=== PATIENT | male | born 1940 | race Caucasian/White ===

== ENCOUNTER 2020-11-17 12:35 | Inpatient (IN) | payer MEDICARE, BC ==
[2020-11-17] MEDS ORDERED: Sodium Chloride 0.9% 2.5 ML Syringe FLUSH PRN (12:40)
[2020-11-17] MEDS ORDERED: Sodium Chloride 0.9% 10 ML Syringe FLUSH PRN (12:40)
--- NOTE | 2020-11-17 12:45 | EDM.PDOC ---
ED HPI GENERAL MEDICAL PROBLEM - General Stated Complaint: SHORTNESS OF BREATHE Time Seen by Provider: 11/17/20 12:45 Source of Information: Reports: Patient History Limitations: Reports: No Limitations - History of Present Illness INITIAL COMMENTS - FREE TEXT/NARRATIVE: HISTORY AND PHYSICAL: History of present illness: Patient is an 80-year-old male who presents to the emergency room with complaints of shortness of breath and low oxygen saturation. Earlier this week the patient was admitted to [facility] for " BOOP pneumonia". He was discharged to home on 11/14/2020 and states he felt "fine". His daughter states she checked his oxygen as he appeared short of breath and he was saturating at 76% on room air. They decided to come to the emergency room for evaluation. Patient reports a infrequent nonproductive cough. Patient denies any fever, chills, headache, change in vision, syncope or near syncope. Denies any chest pain, back pain, abdominal pain, nausea, vomiting, diarrhea, constipation or dysuria. Has not noted any blood in urine or stool. Patient has been eating and drinking appropriately. *History of pulmonary fibrosis Review of systems: As per history of present illness and below otherwise all systems reviewed and negative. Past medical history: As per history of present illness and as reviewed below otherwise noncontributory. Surgical history: As per history of present illness and as reviewed below otherwise noncontributory. Social history: See social history for further information Family history: As per history of present illness and as reviewed below otherwise noncontributory. Physical exam: General: Well developed and well nourished. Alert and orientated x 3. Nontoxic in appearance and in no acute distress. Vital signs are stable and have been reviewed by me. Nursing notes were reviewed. HEENT: Atraumatic, normocephalic, pupils equal and reactive bilaterally, negative for conjunctival pallor or scleral icterus, mucous membranes moist, th roat clear, neck supple, nontender, trachea midline. No drooling or trismus noted. No meningeal signs. No hot potato voice noted. Lungs: Slightly diminished to auscultation throughout, breath sounds equal bilaterally, chest nontender. Normal work of breathing, no accessory muscles used. Dry nonproductive cough noted. Heart: S1S2, regular rate and rhythm without overt murmur Abdomen: Soft, nondistended, nontender. Negative for masses or costovertebral tenderness. Skin: Intact, warm, dry. No lesions or rashes noted. Hematologic: No petechiae or purpra. Mucosa appropriate color and normal nail bed color and refill. Extremities: Atraumatic, moves all extremities per self without difficulty or deficits, negative for cords or calf pain. +1 pitting edema to bilateral LE (wears NADIR hose). Neurovascular unremarkable. Neuro: Awake, alert, oriented. Cranial nerves II through XII unremarkable. Cerebellum unremarkable. Motor and sensory unremarkable throughout. Exam nonfocal. Psychiatric: Mood and affect are appropriate. Normal thought process. Answering questions appropriately. Notes: Leukocytosis of 13.93. Patient's chest x-ray shows diffuse interstitial opacities throughout the lungs could be related to pulmonary edema, infectious inflammatory etiologies to include atypical infections.Patient's WELLs Criteria is Low and his age adjusted D.Dimer puts him at low risk for PE. Due to the appearance of his chest x-ray and the Negative COVID test, I will do the CT of his chest for further assessment. No pulmonary emboli. Diffuse ground-glass opacities which may reflect infectious or inflammatory process to include atypical infections. Moderate to severe emphysema with pulmonary fibrosis. I have talked with the patient about today's findings, in addition to providing specific details for plan of care. Patient continues to have an oxygen saturation of 92 to 94% on 4 L per nasal cannula. Will admit the patient for IV antibiotics. We have spoken both with the patient and the daughter/caregiver. Dr. Loo was consulted on this case and is agreeable. We will continue to monitor. Diagnostics: CBC, CMP, Troponin, EKG, CXR, D.Dimer, COVID/Influenza, BC x 2, Lactic w/Reflex Therapeutics: Vancomycin Impression: Atypical Pneumonia Plan: Inpatient admission to Med/Surg with telemetry Definitive disposition and diagnosis as appropriate pending reevaluation and review of above. - Related Data Allergies Allergy/AdvReac Type Severity Reaction Status Date / Time No Known Allergies Allergy Verified 11/17/20 12:56 Home Meds: Home Meds Cefdinir [Omnicef] 300 mg PO DAILY 11/17/20 [History] Folic Acid 1 mg PO ASDIRECTED 11/17/20 [History] Furosemide [Lasix] 40 mg PO DAILY 11/17/20 [History] Levothyroxine 150 mcg PO DAILY 11/17/20 [History] Methotrexate 2.5 mg PO ASDIRECTED 11/17/20 [History] Potassium Chloride [Klor-Con M20] 20 meq PO DAILY 11/17/20 [History] Warfarin [Coumadin] 4 mg PO ASDIRECTED 11/17/20 [History] Warfarin [Coumadin] 5 mg PO ASDIRECTED 11/17/20 [History] ED ROS GENERAL - Review of Systems Review Of Systems: Comprehensive ROS is negative, except as noted in HPI. ED EXAM, GENERAL - Physical Exam Exam: See Below (See dictation) Course - Vital Signs Last Recorded V/S: Last Vital Signs Temp 97.7 F 11/17/20 12:35 Pulse 69 11/17/20 15:09 Resp 16 11/17/20 15:09 BP 114/56 L 11/17/20 15:09 Pulse Ox 96 11/17/20 15:09 - Orders/Labs/Meds Orders: Active Orders 24 hr Category Date Time Status Cardiac Monitoring [RC] . DIRECTED Care 11/17/20 12:40 Active EKG Documentation Completion [RC] STAT Care 11/17/20 12:39 Active Oxygen Therapy, ED [RC] ASDIRECTED Care 11/17/20 12:40 Active B-TYPE NATRIURETIC PEPTIDE,BNP [CHEM] Stat Lab 11/17/20 12:52 Received CULTURE BLOOD [BC] Stat Lab 11/17/20 12:52 Received CULTURE BLOOD [BC] Stat Lab 11/17/20 12:52 Received Sodium Chloride 0.9% [Saline Flush] Med 11/17/20 12:40 Active 10 ml FLUSH ASDIRECTED PRN Sodium Chloride 0.9% [Saline Flush] Med 11/17/20 12:40 Active 2.5 ml FLUSH ASDIRECTED PRN Vancomycin 1 gm Med 11/17/20 15:42 Ordered Sodium Chloride 0.9% [Normal Saline (AdvBag)] 250 ml IV ONETIME Blood Culture x2 Reflex Set [OM.PC] Stat Oth 11/17/20 12:39 Ordered Saline Lock Insert [OM.PC] Stat Oth 11/17/20 12:40 Ordered Medication Orders Vancomycin HCl 1 gm/ Sodium (Chloride) 250 mls @ 166 mls/hr IV ONETIME ONE Stop: 11/17/20 17:12 Sodium Chloride (Saline Flush) 10 ml FLUSH ASDIRECTED PRN PRN Reason: Keep Vein Open Last Admin: 11/17/20 12:58 Dose: 10 ml Documented by: SHIRLEY Sodium Chloride (Saline Flush) 2.5 ml FLUSH ASDIRECTED PRN PRN Reason: Keep Vein Open Last Admin: 11/17/20 12:58 Dose: 2.5 ml Documented by: SHIRLEY Labs: Laboratory Tests 11/17/20 11/17/20 11/17/20 Range/Units 12:52 12:52 12:52 WBC 13.93 H (4.0-11.0) K/uL RBC 4.80 (4.50-5.90) M/uL Hgb 15.0 (13.0-17.0) g/dL Hct 46.8 (38.0-50.0) % MCV 97.5 (80.0-98.0) fL MCH 31.3 (27.0-32.0) pg MCHC 32.1 (31.0-37.0) g/dL RDW Std Deviation 52.1 (28.0-62.0) fl RDW Coeff of Sunny 15 (11.0-15.0) % Plt Count 224 (150-400) K/uL MPV 10.90 (7.40-12.00) fL Add Manual Diff YES Neutrophils % (Manual) 70 (48.0-80.0) % Lymphocytes % (Manual) 8 L (16.0-40.0) % Monocytes % (Manual) 19 H (0.0-15.0) % Eosinophils % (Manual) 1 (0.0-7.0) % Basophils % (Manual) 1 (0.0-1.5) % Nucleated RBC % 0.0 /100WBC Absolute Seg Neuts 9.8 H (1.4-5.7) Lymphocytes # (Manual) 1.1 (0.6-2.4) Monocytes # (Manual) 2.6 H (0.0-0.8) Eosinophils # (Manual) 0.1 (0.0-0.7) Basophils # (Manual) 0.1 (0.0-0.1) Absolute Myelocytes 1 Nucleated RBCs # 0 K/uL INR D-Dimer, Quantitative 0.58 H (0.0-0.50) mg/L FEU Lactate (0.20-2.00) mmol/L Sodium 135 L (136-148) mmol/L Potassium 4.3 (3.5-5.1) mmol/L Chloride 102 (98-107) mmol/L Carbon Dioxide 27.2 (21.0-32.0) mmol/L BUN 24 H (7.0-18.0) mg/dL Creatinine 1.3 (0.8-1.3) mg/dL Est Cr Clr Drug Dosing 55.64 mL/min Estimated GFR (MDRD) 53.1 ml/min Glucose 124 H (74-106) mg/dL Calcium 8.5 (8.5-10.1) mg/dL Total Bilirubin 1.1 H (0.2-1.0) mg/dL AST 29 (15-37) IU/L ALT 45 (14-63) IU/L Alkaline Phosphatase 76 (46-116) U/L Troponin I < 0.050 (0.000-0.056) ng/mL Total Protein 6.0 L (6.4-8.2) g/dL Albumin 2.9 L (3.4-5.0) g/dL Globulin 3.1 (2.6-4.0) g/dL Albumin/Globulin Ratio 0.9 (0.9-1.6) Influenza Type A RNA (NEGATIVE) Influenza Type B RNA (NEGATIVE) SARS-CoV-2 RNA (MELIDA) (NEGATIVE) 11/17/20 11/17/20 11/17/20 Range/Units 12:52 12:52 13:20 WBC (4.0-11.0) K/uL RBC (4.50-5.90) M/uL Hgb (13.0-17.0) g/dL Hct (38.0-50.0) % MCV (80.0-98.0) fL MCH (27.0-32.0) pg MCHC (31.0-37.0) g/dL RDW Std Deviation (28.0-62.0) fl RDW Coeff of Sunny (11.0-15.0) % Plt Count (150-400) K/uL MPV (7.40-12.00) fL Add Manual Diff Neutrophils % (Manual) (48.0-80.0) % Lymphocytes % (Manual) (16.0-40.0) % Monocytes % (Manual) (0.0-15.0) % Eosinophils % (Manual) (0.0-7.0) % Basophils % (Manual) (0.0-1.5) % Nucleated RBC % /100WBC Absolute Seg Neuts (1.4-5.7) Lymphocytes # (Manual) (0.6-2.4) Monocytes # (Manual) (0.0-0.8) Eosinophils # (Manual) (0.0-0.7) Basophils # (Manual) (0.0-0.1) Absolute Myelocytes Nucleated RBCs # K/uL INR 1.69 D-Dimer, Quantitative (0.0-0.50) mg/L FEU Lactate 1.7 (0.20-2.00) mmol/L Sodium (136-148) mmol/L Potassium (3.5-5.1) mmol/L Chloride (98-107) mmol/L Carbon Dioxide (21.0-32.0) mmol/L BUN (7.0-18.0) mg/dL Creatinine (0.8-1.3) mg/dL Est Cr Clr Drug Dosing mL/min Estimated GFR (MDRD) ml/min Glucose (74-106) mg/dL Calcium (8.5-10.1) mg/dL Total Bilirubin (0.2-1.0) mg/dL AST (15-37) IU/L ALT (14-63) IU/L Alkaline Phosphatase (46-116) U/L Troponin I (0.000-0.056) ng/mL Total Protein (6.4-8.2) g/dL Albumin (3.4-5.0) g/dL Globulin (2.6-4.0) g/dL Albumin/Globulin Ratio (0.9-1.6) Influenza Type A RNA NEGATIVE (NEGATIVE) Influenza Type B RNA NEGATIVE (NEGATIVE) SARS-CoV-2 RNA (MELIDA) NEGATIVE (NEGATIVE) Meds: Medications Generic Name Dose Route Start Last Admin Trade Name Freq PRN Reason Stop Dose Admin Vancomycin HCl 1 gm/ Sodium 250 mls @ 166 mls/hr 11/17/20 15:42 Chloride IV 11/17/20 17:12 ONETIME ONE Sodium Chloride 10 ml 11/17/20 12:40 11/17/20 12:58 Saline Flush FLUSH 10 ml ASDIRECTED PRN Administration Keep Vein Open Sodium Chloride 2.5 ml 11/17/20 12:40 11/17/20 12:58 Saline Flush FLUSH 2.5 ml ASDIRECTED PRN Administration Keep Vein Open Discontinued Medications Generic Name Dose Route Start Last Admin Trade Name Freq PRN Reason Stop Dose Admin Iopamidol 100 ml 11/17/20 14:49 11/17/20 14:52 Isovue Multipack-370 (76%) IVPUSH 11/17/20 14:50 100 ml ONETIME ONE Administration Departure - Departure Time of Disposition: 15:45 Disposition: Admitted As Inpatient 66 Clinical Impression: Atypical pneumonia - Discharge Information Referrals: PCP,Not In Area [Primary Care Provider] - Sepsis Event Note (ED) - Focused Exam Vital Signs: Vital Signs Temp Pulse Resp BP Pulse Ox Pulse Ox 11/17/20 15:09 69 16 114/56 L 96 11/17/20 14:28 70 16 111/50 L 94 L 11/17/20 13:47 70 18 120/61 92 L 11/17/20 12:40 95 11/17/20 12:35 97.7 F 84 20 114/50 L 81 L - My Orders Last 24 Hours: My Active Orders 11/17/20 12:39 EKG Documentation Completion [RC] STAT Blood Culture x2 Reflex Set [OM.PC] Stat 11/17/20 12:40 Cardiac Monitoring [RC] . DIRECTED Oxygen Therapy, ED [RC] ASDIRECTED Sodium Chloride 0.9% [Saline Flush] 10 ml FLUSH ASDIRECTED PRN Sodium Chloride 0.9% [Saline Flush] 2.5 ml FLUSH ASDIRECTED PRN Saline Lock Insert [OM.PC] Stat 11/17/20 12:52 B-TYPE NATRIURETIC PEPTIDE,BNP [CHEM] Stat CULTURE BLOOD [BC] Stat CULTURE BLOOD [BC] Stat 11/17/20 15:42 Vancomycin 1 gm Sodium Chloride 0.9% [Normal Saline (AdvBag)] 250 ml IV ONETIME - Assessment/Plan Last 24 Hours: My Active Orders 11/17/20 12:39 EKG Documentation Completion [RC] STAT Blood Culture x2 Reflex Set [OM.PC] Stat 11/17/20 12:40 Cardiac Monitoring [RC] . DIRECTED Oxygen Therapy, ED [RC] ASDIRECTED Sodium Chloride 0.9% [Saline Flush] 10 ml FLUSH ASDIRECTED PRN Sodium Chloride 0.9% [Saline Flush] 2.5 ml FLUSH ASDIRECTED PRN Saline Lock Insert [OM.PC] Stat 11/17/20 12:52 B-TYPE NATRIURETIC PEPTIDE,BNP [CHEM] Stat CULTURE BLOOD [BC] Stat CULTURE BLOOD [BC] Stat 11/17/20 15:42 Vancomycin 1 gm Sodium Chloride 0.9% [Normal Saline (AdvBag)] 250 ml IV ONETIME
[2020-11-17 13:22] LABS: BLOOD UREA NITROGEN,BUN 24 mg/dL (7.0-18.0); CARBON DIOXIDE,CO2 27.2 mmol/L (21.0-32.0); CHLORIDE,CL 102 mmol/L (98-107); GLUCOSE RANDOM 124 mg/dL (74-106); POTASSIUM,K 4.3 mmol/L (3.5-5.1); SODIUM,NA 135 mmol/L (136-148)
--- NOTE | 2020-11-17 13:54 | CR ---
INDICATION: Dyspnea TECHNIQUE: Single view chest. Comparison: No comparison FINDINGS: Prominent cardiac silhouette. Diffuse interstitial opacities throughout both lungs. Apical pleural parenchymal thickening. No large effusion or pneumothorax. Impression: 1. Diffuse interstitial opacities throughout the lungs could be related to pulmonary edema, infectious inflammatory etiologies to include atypical infections. Dictated by Sammie Alas MD @ Nov 17 2020 1:50PM Signed by Dr. Sammie Alas @ Nov 17 2020 1:52PM
[2020-11-17 14:15] LABS: CORONAVIRUS COVID-19 NAA NEGATIVE (NEGATIVE); INFLUENZA A NAA NEGATIVE (NEGATIVE); INFLUENZA B NAA NEGATIVE (NEGATIVE)
[2020-11-17] MEDS ORDERED: Iopamidol 755 MG/ML 500 ML Multipack Bottle IVPUSH ONE (14:49)
--- NOTE | 2020-11-17 15:19 | CT ---
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 Adequate opacification of the pulmonary arteries. No filling defects in the pulmonary arteries. No pulmonary emboli. Heart size is normal. No mediastinal or hilar adenopathy. No pericardial effusion. Moderate to severe emphysema. Pulmonary fibrosis with honeycombing. No effusion. Apical pleural parenchymal fibrotic change. Diffuse bilateral ground-glass opacities. No suspicious bony lesions. Impression: 1. No pulmonary emboli. 2. Diffuse ground-glass opacities which may reflect infectious or inflammatory process to include atypical infections. 3. Moderate to severe emphysema with pulmonary fibrosis. Please note that all CT scans at this facility use dose modulation, iterative reconstruction, and/or weight-based dosing when appropriate to reduce radiation dose to as low as reasonably achievable. Dictated by Sammie Alas MD @ Nov 17 2020 3:09PM Signed by Dr. Sammie Alas @ Nov 17 2020 3:17PM
[2020-11-17] MEDS ORDERED: Acetaminophen 325 MG Tab PO PRN (17:09)
[2020-11-17] MEDS ORDERED: Albuterol/Ipratropium 3.0-0.5 MG/3 ML Neb Soln NEB PRN (17:09)
[2020-11-17] MEDS ORDERED: Furosemide 40 MG/4 ML VIAL IVPUSH ONE (17:20)
[2020-11-17] MEDS ORDERED: guaiFENesin/Dextromethorphan 100-10 MG/5 ML Soln 10 ML Cup PO PRN (17:21)
[2020-11-17] MEDS ORDERED: Albuterol/Ipratropium 4 GM Inhalation Spray INH PRN (17:21)
[2020-11-17] MEDS ORDERED: cefTRIAXone 1 GM in Sodium Chloride 0.9% 50 ML IV SCH (17:30)
[2020-11-17] MEDS ORDERED: Folic Acid 1 MG Tab PO SCH (17:30)
[2020-11-17] MEDS ORDERED: Azithromycin 500 MG in Sodium Chloride 0.9% 250 ML IV SCH (17:30)
--- NOTE | 2020-11-17 17:54 | PCM.HP.2 ---
<Yennifer Teresa - Last Filed: 11/17/20 18:19> H&P History of Present Illness - General Date of Service: 11/17/20 Admit Problem/Dx: Admission Diagnosis/Problem Admission Diagnosis/Problem Pneumonia Source of Information: Patient - History of Present Illness Initial Comments - Free Text/Narative: Patient is a 80-year-old gentleman from [place]. Was previously admitted at the [facility] for BOOP pneumonia. Was discharged on November 14, 2020 with cefdinir. Patient states he was visiting his daughter here in [place] who noted that her father's O2 saturations were in the 70s, upon admission to the ED today he was satting 84 to 86% on room air. Therefore placed on 4 L nasal cannula correcting his saturations to 90 to 94%. Patient states that last night he felt feverish, has had some intermittent nonproductive cough. 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 We will be admitting for treating possible HCAP versus mycoplasma pneumonia with oxygen and antibiotics and cardiac monitoring on telemetry. - Related Data Allergies/Adverse Reactions: Allergies Allergy/AdvReac Type Severity Reaction Status Date / Time No Known Allergies Allergy Verified 11/17/20 18:23 Home Medications: Home Meds Cefdinir [Omnicef] 300 mg PO BID 11/17/20 [History] Folic Acid 1 mg PO DAILY 11/17/20 [History] Furosemide [Lasix] 40 mg PO DAILY 11/17/20 [History] Levothyroxine 150 mcg PO DAILY 11/17/20 [History] Methotrexate 5 tab PO WEEKLY 11/17/20 [History] Potassium Chloride [Klor-Con M20] 20 meq PO DAILY 11/17/20 [History] Warfarin [Coumadin] 4 mg PO SUMOTUWETHSA 11/17/20 [History] Warfarin [Coumadin] 5 mg PO FR 11/17/20 [History] Past Medical History - Past Health History Medical/Surgical History: Denies Medical/Surgical History HEENT History: Reports: None Cardiovascular History: Reports: None Respiratory History: Reports: None Gastrointestinal History: Reports: None Genitourinary History: Reports: None Musculoskeletal History: Reports: Arthritis Neurological History: Reports: None Psychiatric History: Reports: None Endocrine/Metabolic History: Reports: None Hematologic History: Reports: Other (See Below) Other Hematologic History: Blood clots? Immunologic History: Reports: None Oncologic (Cancer) History: Reports: None Dermatologic History: Reports: None - Infectious Disease History Infectious Disease History: Reports: None - Past Surgical History Head Surgeries/Procedures: Reports: None Social & Family History - Family History Family Medical History: No Pertinent Family History - Tobacco Use Tobacco Use Status *Q: Former Tobacco User Used Tobacco, but Quit: Yes Month/Year Tobacco Last Used: 1989 - Caffeine Use Caffeine Use: Reports: Coffee - Recreational Drug Use Recreational Drug Use: No H&P Review of Systems - Review of Systems: Review Of Systems: Comprehensive ROS is negative, except as noted in HPI. General: Reports: No Symptoms HEENT: Reports: No Symptoms Pulmonary: Reports: Shortness of Breath Cardiovascular: Reports: No Symptoms Gastrointestinal: Reports: No Symptoms Genitourinary: Reports: No Symptoms Musculoskeletal: Reports: No Symptoms Skin: Reports: Change in Color (Venous stasis dermatitis bilaterally, chronic) Psychiatric: Reports: No Symptoms Neurological: Reports: No Symptoms Hematologic/Lymphatic: Reports: No Symptoms Immunologic: Reports: No Symptoms Exam - Exam Exam: See Below - Vital Signs Vital Signs: Last Vital Signs Temp 97.7 F 11/17/20 12:35 Pulse 72 11/17/20 16:10 Resp 18 11/17/20 16:10 BP 119/51 L 11/17/20 16:10 Pulse Ox 96 11/17/20 16:10 Weight: 119.023 kg - Exam Quality Assessment: Supplemental Oxygen, DVT Prophylaxis General: Alert, Oriented, Cooperative HEENT: Conjunctiva Clear, EACs Clear, EOMI, Hearing Intact, Mucosa Moist & [place], Nares Patent, Normal Nasal Septum, PERRLA Neck: Supple, Trachea Midline Lungs: Crackles, Rhonchi Cardiovascular: Regular Rate, Regular Rhythm GI/Abdominal Exam: Normal Bowel Sounds, Soft, Non-Tender, No Organomegaly, No Distention, No Abnormal Bruit, No Mass Back Exam: Normal Inspection, Full Range of Motion Extremities: Normal Inspection, Normal Range of Motion, Non-Tender, No Pedal Edema, Normal Capillary Refill Peripheral Pulses: 2+: Radial (L), Radial (R), Dorsalis Pedis (L), Dorsalis Pedis (R) Skin: Warm, Dry, Intact Neurological: Cranial Nerves Intact, Reflexes Equal Bilateral Neuro Extensive - Mental Status: Alert, Oriented x3, Normal Mood/Affect Neuro Extensive - Motor, Sensory, Reflexes: CN II-XII Intact, Normal Gait, Normal Reflexes Psychiatric: Alert, Normal Affect, Normal Mood - Patient Data Lab Results Last 24 hrs: Laboratory Results - last 24 hr 11/17/20 11/17/20 11/17/20 Range/Units 12:52 12:52 12:52 WBC 13.93 H (4.0-11.0) K/uL RBC 4.80 (4.50-5.90) M/uL Hgb 15.0 (13.0-17.0) g/dL Hct 46.8 (38.0-50.0) % MCV 97.5 (80.0-98.0) fL MCH 31.3 (27.0-32.0) pg MCHC 32.1 (31.0-37.0) g/dL RDW Std Deviation 52.1 (28.0-62.0) fl RDW Coeff of Sunny 15 (11.0-15.0) % Plt Count 224 (150-400) K/uL MPV 10.90 (7.40-12.00) fL Add Manual Diff YES Neutrophils % (Manual) 70 (48.0-80.0) % Lymphocytes % (Manual) 8 L (16.0-40.0) % Monocytes % (Manual) 19 H (0.0-15.0) % Eosinophils % (Manual) 1 (0.0-7.0) % Basophils % (Manual) 1 (0.0-1.5) % Nucleated RBC % 0.0 /100WBC Absolute Seg Neuts 9.8 H (1.4-5.7) Lymphocytes # (Manual) 1.1 (0.6-2.4) Monocytes # (Manual) 2.6 H (0.0-0.8) Eosinophils # (Manual) 0.1 (0.0-0.7) Basophils # (Manual) 0.1 (0.0-0.1) Absolute Myelocytes 1 Nucleated RBCs # 0 K/uL INR D-Dimer, Quantitative 0.58 H (0.0-0.50) mg/L FEU Lactate (0.20-2.00) mmol/L Sodium 135 L (136-148) mmol/L Potassium 4.3 (3.5-5.1) mmol/L Chloride 102 (98-107) mmol/L Carbon Dioxide 27.2 (21.0-32.0) mmol/L BUN 24 H (7.0-18.0) mg/dL Creatinine 1.3 (0.8-1.3) mg/dL Est Cr Clr Drug Dosing 55.64 mL/min Estimated GFR (MDRD) 53.1 ml/min Glucose 124 H (74-106) mg/dL Calcium 8.5 (8.5-10.1) mg/dL Total Bilirubin 1.1 H (0.2-1.0) mg/dL AST 29 (15-37) IU/L ALT 45 (14-63) IU/L Alkaline Phosphatase 76 (46-116) U/L Troponin I < 0.050 (0.000-0.056) ng/mL Total Protein 6.0 L (6.4-8.2) g/dL Albumin 2.9 L (3.4-5.0) g/dL Globulin 3.1 (2.6-4.0) g/dL Albumin/Globulin Ratio 0.9 (0.9-1.6) Urine Color Urine Appearance Urine pH (5.0-8.0) Ur Specific [place] (1.001-1.035) Urine Protein (NEGATIVE) mg/dL Urine Glucose (UA) (NEGATIVE) mg/dL Urine Ketones (NEGATIVE) mg/dL Urine Occult Blood (NEGATIVE) Urine Nitrite (NEGATIVE) Urine Bilirubin (NEGATIVE) Urine Urobilinogen (<2.0) EU/dL Ur Leukocyte Esterase (NEGATIVE) Urine RBC (0-2/HPF) Urine WBC (0-5/HPF) Ur Epithelial Cells (NONE-FEW) Urine Bacteria (NEGATIVE) Influenza Type A RNA (NEGATIVE) Influenza Type B RNA (NEGATIVE) SARS-CoV-2 RNA (MELIDA) (NEGATIVE) 11/17/20 11/17/20 11/17/20 Range/Units 12:52 12:52 13:20 WBC (4.0-11.0) K/uL RBC (4.50-5.90) M/uL Hgb (13.0-17.0) g/dL Hct (38.0-50.0) % MCV (80.0-98.0) fL MCH (27.0-32.0) pg MCHC (31.0-37.0) g/dL RDW Std Deviation (28.0-62.0) fl RDW Coeff of Sunny (11.0-15.0) % Plt Count (150-400) K/uL MPV (7.40-12.00) fL Add Manual Diff Neutrophils % (Manual) (48.0-80.0) % Lymphocytes % (Manual) (16.0-40.0) % Monocytes % (Manual) (0.0-15.0) % Eosinophils % (Manual) (0.0-7.0) % Basophils % (Manual) (0.0-1.5) % Nucleated RBC % /100WBC Absolute Seg Neuts (1.4-5.7) Lymphocytes # (Manual) (0.6-2.4) Monocytes # (Manual) (0.0-0.8) Eosinophils # (Manual) (0.0-0.7) Basophils # (Manual) (0.0-0.1) Absolute Myelocytes Nucleated RBCs # K/uL INR 1.69 D-Dimer, Quantitative (0.0-0.50) mg/L FEU Lactate 1.7 (0.20-2.00) mmol/L Sodium (136-148) mmol/L Potassium (3.5-5.1) mmol/L Chloride (98-107) mmol/L Carbon Dioxide (21.0-32.0) mmol/L BUN (7.0-18.0) mg/dL Creatinine (0.8-1.3) mg/dL Est Cr Clr Drug Dosing mL/min Estimated GFR (MDRD) ml/min Glucose (74-106) mg/dL Calcium (8.5-10.1) mg/dL Total Bilirubin (0.2-1.0) mg/dL AST (15-37) IU/L ALT (14-63) IU/L Alkaline Phosphatase (46-116) U/L Troponin I (0.000-0.056) ng/mL Total Protein (6.4-8.2) g/dL Albumin (3.4-5.0) g/dL Globulin (2.6-4.0) g/dL Albumin/Globulin Ratio (0.9-1.6) Urine Color Urine Appearance Urine pH (5.0-8.0) Ur Specific [place] (1.001-1.035) Urine Protein (NEGATIVE) mg/dL Urine Glucose (UA) (NEGATIVE) mg/dL Urine Ketones (NEGATIVE) mg/dL Urine Occult Blood (NEGATIVE) Urine Nitrite (NEGATIVE) Urine Bilirubin (NEGATIVE) Urine Urobilinogen (<2.0) EU/dL Ur Leukocyte Esterase (NEGATIVE) Urine RBC (0-2/HPF) Urine WBC (0-5/HPF) Ur Epithelial Cells (NONE-FEW) Urine Bacteria (NEGATIVE) Influenza Type A RNA NEGATIVE (NEGATIVE) Influenza Type B RNA NEGATIVE (NEGATIVE) SARS-CoV-2 RNA (MELIDA) NEGATIVE (NEGATIVE) 11/17/20 Range/Units 15:55 WBC (4.0-11.0) K/uL RBC (4.50-5.90) M/uL Hgb (13.0-17.0) g/dL Hct (38.0-50.0) % MCV (80.0-98.0) fL MCH (27.0-32.0) pg MCHC (31.0-37.0) g/dL RDW Std Deviation (28.0-62.0) fl RDW Coeff of Sunny (11.0-15.0) % Plt Count (150-400) K/uL MPV (7.40-12.00) fL Add Manual Diff Neutrophils % (Manual) (48.0-80.0) % Lymphocytes % (Manual) (16.0-40.0) % Monocytes % (Manual) (0.0-15.0) % Eosinophils % (Manual) (0.0-7.0) % Basophils % (Manual) (0.0-1.5) % Nucleated RBC % /100WBC Absolute Seg Neuts (1.4-5.7) Lymphocytes # (Manual) (0.6-2.4) Monocytes # (Manual) (0.0-0.8) Eosinophils # (Manual) (0.0-0.7) Basophils # (Manual) (0.0-0.1) Absolute Myelocytes Nucleated RBCs # K/uL INR D-Dimer, Quantitative (0.0-0.50) mg/L FEU Lactate (0.20-2.00) mmol/L Sodium (136-148) mmol/L Potassium (3.5-5.1) mmol/L Chloride (98-107) mmol/L Carbon Dioxide (21.0-32.0) mmol/L BUN (7.0-18.0) mg/dL Creatinine (0.8-1.3) mg/dL Est Cr Clr Drug Dosing mL/min Estimated GFR (MDRD) ml/min Glucose (74-106) mg/dL Calcium (8.5-10.1) mg/dL Total Bilirubin (0.2-1.0) mg/dL AST (15-37) IU/L ALT (14-63) IU/L Alkaline Phosphatase (46-116) U/L Troponin I (0.000-0.056) ng/mL Total Protein (6.4-8.2) g/dL Albumin (3.4-5.0) g/dL Globulin (2.6-4.0) g/dL Albumin/Globulin Ratio (0.9-1.6) Urine Color YELLOW Urine Appearance CLEAR Urine pH 7.5 (5.0-8.0) Ur Specific [place] 1.010 (1.001-1.035) Urine Protein TRACE H (NEGATIVE) mg/dL Urine Glucose (UA) NEGATIVE (NEGATIVE) mg/dL Urine Ketones NEGATIVE (NEGATIVE) mg/dL Urine Occult Blood TRACE-INTACT H (NEGATIVE) Urine Nitrite NEGATIVE (NEGATIVE) Urine Bilirubin NEGATIVE (NEGATIVE) Urine Urobilinogen 1.0 (<2.0) EU/dL Ur Leukocyte Esterase NEGATIVE (NEGATIVE) Urine RBC 0-2 (0-2/HPF) Urine WBC 0-2 (0-5/HPF) Ur Epithelial Cells FEW (NONE-FEW) Urine Bacteria RARE (NEGATIVE) Influenza Type A RNA (NEGATIVE) Influenza Type B RNA (NEGATIVE) SARS-CoV-2 RNA (MELIDA) (NEGATIVE) Result Diagrams: 11/17/20 12:52 11/17/20 12:52 Sepsis Event Note - Evaluation Sepsis Screening Result: No Definite Risk - Focused Exam Vital Signs: Vital Signs Temp Pulse Resp BP Pulse Ox Pulse Ox 11/17/20 16:10 72 18 119/51 L 96 11/17/20 15:09 69 16 114/56 L 96 11/17/20 14:28 70 16 111/50 L 94 L 11/17/20 13:47 70 18 120/61 92 L 11/17/20 12:40 95 11/17/20 12:35 97.7 F 84 20 114/50 L 81 L Problem List Initiated/Reviewed/Updated: Yes Orders Last 24hrs: Active Orders 24 hr Category Date Time Status Admission Status [Patient Status] [ADT] Stat ADT 11/17/20 15:47 Active Ambulate [RC] ASDIRECTED Care 11/17/20 17:09 Active Antiembolic Devices [RC] PER UNIT ROUTINE Care 11/17/20 17:10 Active Cardiac Monitoring [RC] . DIRECTED Care 11/17/20 12:40 Active IS (RT) [RT Incentive Spirometry] [RC] Q2HWA Care 11/17/20 17:27 Active Oxygen Therapy [RC] PRN Care 11/17/20 17:09 Active RT Aerosol Therapy [RC] ASDIRECTED Care 11/17/20 17:10 Active RT Post Treatment Assessment [RC] Click to Edit Care 11/17/20 17:21 Active RT Pre-Treatment Assessment [RC] Click to Edit Care 11/17/20 17:21 Active Telemetry Monitoring [Cardiac Monitoring] [RC] Q8H Care 11/17/20 15:59 Active VTE/DVT Education [RC] PER UNIT ROUTINE Care 11/17/20 17:09 Active Vital Signs [RC] Q4H Care 11/17/20 17:09 Active Heart Healthy Diet [DIET] Diet 11/17/20 Dinner Active B-TYPE NATRIURETIC PEPTIDE,BNP [CHEM] Stat Lab 11/17/20 12:52 Received CULTURE BLOOD [BC] Stat Lab 11/17/20 12:52 Received CULTURE BLOOD [BC] Stat Lab 11/17/20 12:52 Received INR,PT,PROTHROMBIN TIME [COAG] AM Lab 11/18/20 05:11 Ordered INR,PT,PROTHROMBIN TIME [COAG] AM Lab 11/19/20 05:11 Ordered INR,PT,PROTHROMBIN TIME [COAG] AM Lab 11/20/20 05:11 Ordered INR,PT,PROTHROMBIN TIME [COAG] AM Lab 11/21/20 05:11 Ordered Acetaminophen [TylenoL] Med 11/17/20 17:09 Active 650 mg PO Q4H PRN Albuterol/Ipratropium [Combivent Respimat] Med 11/17/20 17:21 Active See Dose Instructions INH Q4H PRN Albuterol/Ipratropium [DuoNeb 3.0-0.5 MG/3 ML] Med 11/17/20 17:09 Active 3 ml NEB Q4HRRT PRN Azithromycin [Zithromax] 500 mg Med 11/17/20 17:30 Active Sodium Chloride 0.9% [Normal Saline (AdvBag)] 250 ml IV DAILY Dextromethorphan/guaiFENesin [Robitussin DM] Med 11/17/20 17:21 Active 10 ml PO Q4H PRN Enoxaparin [Lovenox] Med 11/17/20 21:00 Active 40 mg SUBCUT Q12HR Folic Acid Med 11/17/20 17:30 Pending 1 mg PO ASDIRECTED Furosemide [Lasix] Med 11/18/20 09:00 Active 40 mg PO DAILY Levothyroxine Med 11/18/20 07:30 Active 150 mcg PO ACBRK Potassium Chloride [Klor-Con M20] Med 11/18/20 09:00 Active 20 meq PO DAILY Sodium Chloride 0.9% [Saline Flush] Med 11/17/20 12:40 Active 10 ml FLUSH ASDIRECTED PRN Sodium Chloride 0.9% [Saline Flush] Med 11/17/20 12:40 Active 2.5 ml FLUSH ASDIRECTED PRN Warfarin [Coumadin] Med 11/17/20 17:30 Pending 5 mg PO ASDIRECTED cefTRIAXone [Rocephin in Dextrose,Iso-Osm 1 GM/50 ML] 1 Med 11/17/20 17:30 Active gm Premix Bag 1 bag IV Q24H Blood Culture x2 Reflex Set [OM.PC] Stat Ot 11/17/20 12:39 Ordered Saline Lock Insert [OM.PC] Stat Oth 11/17/20 12:40 Ordered Sequential Compression Device [OM.PC] Per Unit Routine Oth 11/17/20 17:09 Ordered Resuscitation Status Routine Resus Stat 11/17/20 17:09 Ordered Medication Orders Acetaminophen (Tylenol) 650 mg PO Q4H PRN PRN Reason: Pain (Mild 1-3)/fever Albuterol/Ipratropium (Duoneb 3.0-0.5 Mg/3 Ml) 3 ml NEB Q4HRRT PRN PRN Reason: Shortness Of Breath/wheezing Albuterol/Ipratropium (Combivent Respimat) 0 gm INH Q4H PRN PRN Reason: Dyspnea Enoxaparin Sodium (Lovenox) 40 mg SUBCUT Q12HR SUJATHA Folic Acid (Folic Acid) 1 mg PO ASDIRECTED SUJATHA Furosemide (Lasix) 40 mg PO DAILY SUJATHA Guaifenesin/Dextromethorphan (Robitussin Dm) 10 ml PO Q4H PRN PRN Reason: Cough Azithromycin 500 mg/ Sodium (Chloride) 250 mls @ 250 mls/hr IV DAILY SUJATHA Ceftriaxone Sodium/Dextrose 1 (gm/ Premix) 50 mls @ 100 mls/hr IV Q24H SUJATHA Levothyroxine Sodium (Levothyroxine) 150 mcg PO ACBRK SUJATHA Potassium Chloride (Klor-Con M20) 20 meq PO DAILY SUJATHA Sodium Chloride (Saline Flush) 10 ml FLUSH ASDIRECTED PRN PRN Reason: Keep Vein Open Last Admin: 11/17/20 12:58 Dose: 10 ml Documented by: MURDNIC Sodium Chloride (Saline Flush) 2.5 ml FLUSH ASDIRECTED PRN PRN Reason: Keep Vein Open Last Admin: 11/17/20 12:58 Dose: 2.5 ml Documented by: MURDNIC Warfarin Sodium (Coumadin) 5 mg PO ASDIRECTED SUJATHA Assessment/Plan Comment:: Patient is an 80-year-old gentleman admitted for HCAP versus mycoplasma pneumonia. 1.HCAP versus mycoplasma pneumonia: Covid negative, will repeat chest tomorrow Afebrile Leukocytosis 13.9, will trend with morning CBC Provide supplemental oxygen per oxygen requirements, currently on 4 to 5 L, goal of 90 to 92% Tylenol for fever Started on Vanco, Zosyn, azithromycin Blood cultures pending, will help narrow antibiotics DuoNebs every 4 hours 2. Has medical history of recurrent DVTs: Subtherapeutic INR 1.7, goal of 2-3, patient has not used his home dose of medications today, will ask pharmacy to dose Coumadin accordingly. Therefore also started on Lovenox 40 twice daily 3. Past medical history of hypothyroidism, fluid retention therefore on Lasix, patient unsure if he has a history of CHF, will resume all home medications <True Geiger - Last Filed: 11/26/20 18:05> H&P History of Present Illness - General Admit Problem/Dx: Admission Diagnosis/Problem Admission Diagnosis/Problem Pneumonia Exam - Vital Signs Vital Signs: Last Vital Signs Temp 36.9 C 11/26/20 16:00 Pulse 82 11/26/20 16:00 Resp 16 11/26/20 16:00 BP 145/67 H 11/26/20 16:00 Pulse Ox 95 11/26/20 16:00 - Patient Data Lab Results Last 24 hrs: Laboratory Results - last 24 hr 11/26/20 11/26/20 11/26/20 Range/Units 05:27 05:27 05:27 WBC 13.33 H (4.0-11.0) K/uL RBC 4.52 (4.50-5.90) M/uL Hgb 13.9 (13.0-17.0) g/dL Hct 43.2 (38.0-50.0) % MCV 95.6 (80.0-98.0) fL MCH 30.8 (27.0-32.0) pg MCHC 32.2 (31.0-37.0) g/dL RDW Std Deviation 51.1 (28.0-62.0) fl RDW Coeff of Sunny 15 (11.0-15.0) % Plt Count 203 (150-400) K/uL MPV 11.80 (7.40-12.00) fL Neut % (Auto) 76.0 (48.0-80.0) % Lymph % (Auto) 16.8 (16.0-40.0) % [place] % (Auto) 6.8 (0.0-15.0) % Eos % (Auto) 0.2 (0.0-7.0) % Baso % (Auto) 0.2 (0.0-1.5) % Neut # (Auto) 10.1 H (1.4-5.7) K/uL Lymph # (Auto) 2.2 (0.6-2.4) K/uL [place] # (Auto) 0.9 H (0.0-0.8) K/uL Eos # (Auto) 0.0 (0.0-0.7) K/uL Baso # (Auto) 0.0 (0.0-0.1) K/uL Nucleated RBC % 0.0 /100WBC Nucleated RBCs # 0 K/uL INR 2.60 Sodium 138 (136-148) mmol/L Potassium 4.5 (3.5-5.1) mmol/L Chloride 102 (98-107) mmol/L Carbon Dioxide 31.3 (21.0-32.0) mmol/L BUN 31 H (7.0-18.0) mg/dL Creatinine 0.9 (0.8-1.3) mg/dL Est Cr Clr Drug Dosing 78.24 mL/min Estimated GFR (MDRD) > 60.0 ml/min Glucose 131 H (74-106) mg/dL POC Glucose (60-110) mg/dL Calcium 8.1 L (8.5-10.1) mg/dL Total Bilirubin 0.7 (0.2-1.0) mg/dL AST 30 (15-37) IU/L ALT 133 H (14-63) IU/L Alkaline Phosphatase 64 (46-116) U/L Total Protein 4.9 L (6.4-8.2) g/dL Albumin 2.5 L (3.4-5.0) g/dL Globulin 2.4 L (2.6-4.0) g/dL Albumin/Globulin Ratio 1.0 (0.9-1.6) 11/26/20 11/26/20 Range/Units 08:03 12:44 WBC (4.0-11.0) K/uL RBC (4.50-5.90) M/uL Hgb (13.0-17.0) g/dL Hct (38.0-50.0) % MCV (80.0-98.0) fL MCH (27.0-32.0) pg MCHC (31.0-37.0) g/dL RDW Std Deviation (28.0-62.0) fl RDW Coeff of Sunny (11.0-15.0) % Plt Count (150-400) K/uL MPV (7.40-12.00) fL Neut % (Auto) (48.0-80.0) % Lymph % (Auto) (16.0-40.0) % [place] % (Auto) (0.0-15.0) % Eos % (Auto) (0.0-7.0) % Baso % (Auto) (0.0-1.5) % Neut # (Auto) (1.4-5.7) K/uL Lymph # (Auto) (0.6-2.4) K/uL [place] # (Auto) (0.0-0.8) K/uL Eos # (Auto) (0.0-0.7) K/uL Baso # (Auto) (0.0-0.1) K/uL Nucleated RBC % /100WBC Nucleated RBCs # K/uL INR Sodium (136-148) mmol/L Potassium (3.5-5.1) mmol/L Chloride (98-107) mmol/L Carbon Dioxide (21.0-32.0) mmol/L BUN (7.0-18.0) mg/dL Creatinine (0.8-1.3) mg/dL Est Cr Clr Drug Dosing mL/min Estimated GFR (MDRD) ml/min Glucose (74-106) mg/dL POC Glucose 95 155 H (60-110) mg/dL Calcium (8.5-10.1) mg/dL Total Bilirubin (0.2-1.0) mg/dL AST (15-37) IU/L ALT (14-63) IU/L Alkaline Phosphatase (46-116) U/L Total Protein (6.4-8.2) g/dL Albumin (3.4-5.0) g/dL Globulin (2.6-4.0) g/dL Albumin/Globulin Ratio (0.9-1.6) Result Diagrams: 11/26/20 05:27 11/26/20 05:27 Sepsis Event Note - Focused Exam Vital Signs: Vital Signs Temp Pulse Resp BP BP Pulse Ox 11/26/20 16:00 36.9 C 82 16 145/67 H 95 11/26/20 11:11 36.6 C 75 16 123/56 L 92 L 11/26/20 08:01 36.4 C 65 16 120/58 L 93 L Orders Last 24hrs: Active Orders 24 hr Category Date Time Status CBC WITH AUTO DIFF [HEME] AM Lab 11/27/20 05:11 Ordered CBC WITH AUTO DIFF [HEME] AM Lab 11/28/20 05:11 Ordered CMP [COMPREHENSIVE METABOLIC PN,CMP] [CHEM] AM Lab 11/27/20 05:11 Ordered CMP [COMPREHENSIVE METABOLIC PN,CMP] [CHEM] AM Lab 11/28/20 05:11 Ordered Medication Orders Acetaminophen (Tylenol) 650 mg PO Q4H PRN PRN Reason: Pain (Mild 1-3)/fever Albuterol/Ipratropium (Duoneb 3.0-0.5 Mg/3 Ml) 3 ml NEB Q4HRRT PRN PRN Reason: Shortness Of Breath/wheezing Albuterol/Ipratropium (Combivent Respimat) 0 gm INH Q4H PRN PRN Reason: Dyspnea Dextrose/Water (Dextrose 50% In Water) 50 ml IV ASDIRECTED PRN PRN Reason: Hypoglycemia Folic Acid (Folic Acid) 1 mg PO DAILY [facility] Admin: 11/26/20 08:05 Dose: 1 mg Documented by: Admin: 11/25/20 10:28 Dose: 1 mg Documented by: Admin: 11/24/20 09:22 Dose: 1 mg Documented by: Admin: 11/23/20 09:02 Dose: 1 mg Documented by: Admin: 11/22/20 09:20 Dose: 1 mg Documented by: Admin: 11/21/20 09:10 Dose: 1 mg Documented by: Admin: 11/20/20 10:28 Dose: 1 mg Documented by: Admin: 11/19/20 09:51 Dose: 1 mg Documented by: Admin: 11/18/20 09:43 Dose: 1 mg Documented by: THEODORA Furosemide (Lasix) 40 mg PO DAILY [facility] Admin: 11/26/20 08:05 Dose: 40 mg Documented by: Admin: 11/25/20 10:28 Dose: 40 mg Documented by: Admin: 11/24/20 09:22 Dose: 40 mg Documented by: Admin: 11/23/20 09:02 Dose: 40 mg Documented by: Admin: 11/22/20 09:20 Dose: 40 mg Documented by: Admin: 11/21/20 09:10 Dose: 40 mg Documented by: Admin: 11/20/20 10:28 Dose: 40 mg Documented by: Admin: 11/19/20 09:51 Dose: 40 mg Documented by: Admin: 11/18/20 09:42 Dose: 40 mg Documented by: THEODORA Glucagon (Glucagen) 1 mg IM ASDIRECTED PRN PRN Reason: Hypoglycemia Guaifenesin/Dextromethorphan (Robitussin Dm) 10 ml PO Q4H PRN PRN Reason: Cough Levofloxacin/Dextrose 750 mg/ (Premix) 150 mls @ 100 mls/hr IV Q24H [facility] Last Admin: 11/26/20 11:15 Dose: 100 mls/hr Documented by: Infusion: 11/25/20 14:20 Dose: 100 mls/hr Documented by: Admin: 11/25/20 12:50 Dose: 100 mls/hr Documented by: Infusion: 11/24/20 13:19 Dose: 100 mls/hr Documented by: Admin: 11/24/20 11:49 Dose: 100 mls/hr Documented by: Infusion: 11/23/20 13:24 Dose: 100 mls/hr Documented by: Admin: 11/23/20 11:54 Dose: 100 mls/hr Documented by: Infusion: 11/22/20 12:57 Dose: 100 mls/hr Documented by: Admin: 11/22/20 11:27 Dose: 100 mls/hr Documented by: Infusion: 11/21/20 14:18 Dose: 100 mls/hr Documented by: Admin: 11/21/20 12:48 Dose: 100 mls/hr Documented by: Infusion: 11/20/20 14:27 Dose: 100 mls/hr Documented by: Admin: 11/20/20 12:57 Dose: 100 mls/hr Documented by: JAMI Cefepime HCl 2 gm/ Premix 50 mls @ 100 mls/hr IV Q8H [facility] Last Admin: 11/26/20 11:14 Dose: 100 mls/hr Documented by: Infusion: 11/26/20 02:49 Dose: 100 mls/hr Documented by: Admin: 11/26/20 02:19 Dose: 100 mls/hr Documented by: [email or web address] Infusion: 11/25/20 19:27 Dose: 100 mls/hr Documented by: [email or web address] Admin: 11/25/20 18:57 Dose: 100 mls/hr Documented by: Infusion: 11/25/20 12:44 Dose: 100 mls/hr Documented by: Admin: 11/25/20 12:14 Dose: 100 mls/hr Documented by: Infusion: 11/25/20 03:44 Dose: 100 mls/hr Documented by: JUAN CARLOSLCHI Admin: 11/25/20 03:14 Dose: 100 mls/hr Documented by: [email or web address] Infusion: 11/24/20 19:16 Dose: 100 mls/hr Documented by: [email or web address] Admin: 11/24/20 18:46 Dose: 100 mls/hr Documented by: Infusion: 11/24/20 11:27 Dose: 100 mls/hr Documented by: Admin: 11/24/20 10:57 Dose: 100 mls/hr Documented by: Infusion: 11/24/20 02:34 Dose: 100 mls/hr Documented by: Admin: 11/24/20 02:04 Dose: 100 mls/hr Documented by: Infusion: 11/23/20 19:29 Dose: 100 mls/hr Documented by: Admin: 11/23/20 18:59 Dose: 100 mls/hr Documented by: Infusion: 11/23/20 11:17 Dose: 100 mls/hr Documented by: Admin: 11/23/20 10:47 Dose: 100 mls/hr Documented by: Infusion: 11/23/20 04:07 Dose: 100 mls/hr Documented by: JUAN CARLOSLCHI Admin: 11/23/20 03:37 Dose: 100 mls/hr Documented by: Infusion: 11/22/20 19:39 Dose: 100 mls/hr Documented by: Admin: 11/22/20 19:09 Dose: 100 mls/hr Documented by: Infusion: 11/22/20 11:22 Dose: 100 mls/hr Documented by: Admin: 11/22/20 10:52 Dose: 100 mls/hr Documented by: Infusion: 11/22/20 02:49 Dose: 100 mls/hr Documented by: Admin: 11/22/20 02:19 Dose: 100 mls/hr Documented by: Infusion: 11/21/20 19:12 Dose: 100 mls/hr Documented by: Admin: 11/21/20 18:42 Dose: 100 mls/hr Documented by: Infusion: 11/21/20 12:36 Dose: 100 mls/hr Documented by: Admin: 11/21/20 12:06 Dose: 100 mls/hr Documented by: Infusion: 11/21/20 04:05 Dose: 100 mls/hr Documented by: Admin: 11/21/20 03:35 Dose: 100 mls/hr Documented by: Infusion: 11/20/20 19:26 Dose: 100 mls/hr Documented by: Admin: 11/20/20 18:56 Dose: 100 mls/hr Documented by: Infusion: 11/20/20 12:53 Dose: 100 mls/hr Documented by: Admin: 11/20/20 12:23 Dose: 100 mls/hr Documented by: JAMI Insulin Aspart (Novolog) 0 unit SUBCUT [facility]; Protocol Last Admin: 11/26/20 14:28 Dose: 1 unit Documented by: Admin: 11/26/20 08:05 Dose: Not Given Documented by: Admin: 11/25/20 18:18 Dose: 1 unit Documented by: Admin: 11/25/20 14:53 Dose: Not Given Documented by: Admin: 11/25/20 07:33 Dose: Not Given Documented by: Admin: 11/24/20 18:14 Dose: Not Given Documented by: Admin: 11/24/20 14:02 Dose: Not Given Documented by: Admin: 11/24/20 06:46 Dose: Not Given Documented by: Admin: 11/23/20 18:53 Dose: Not Given Documented by: Admin: 11/23/20 13:48 Dose: Not Given Documented by: Admin: 11/23/20 07:15 Dose: Not Given Documented by: Admin: 11/22/20 18:05 Dose: 2 unit Documented by: Admin: 11/22/20 13:28 Dose: Not Given Documented by: Admin: 11/22/20 08:54 Dose: Not Given Documented by: Admin: 11/21/20 17:20 Dose: Not Given Documented by: Admin: 11/21/20 12:03 Dose: 1 unit Documented by: Admin: 11/21/20 07:31 Dose: Not Given Documented by: Admin: 11/20/20 17:44 Dose: 1 unit Documented by: Admin: 11/20/20 12:30 Dose: Not Given Documented by: Admin: 11/20/20 07:48 Dose: Not Given Documented by: Admin: 11/19/20 17:08 Dose: 3 unit Documented by: Admin: 11/19/20 11:44 Dose: 1 unit Documented by: Admin: 11/19/20 07:34 Dose: 1 unit Documented by: Admin: 11/18/20 17:59 Dose: 2 unit Documented by: THEODORA Levothyroxine Sodium (Levothyroxine) 150 mcg PO ACBRK [facility] Admin: 11/26/20 08:04 Dose: 150 mcg Documented by: Admin: 11/25/20 08:44 Dose: 150 mcg Documented by: Admin: 11/24/20 06:45 Dose: 150 mcg Documented by: Admin: 11/23/20 09:01 Dose: 150 mcg Documented by: Admin: 11/22/20 06:40 Dose: 150 mcg Documented by: Admin: 11/21/20 06:59 Dose: 150 mcg Documented by: Admin: 11/20/20 08:09 Dose: 150 mcg Documented by: Admin: 11/19/20 06:38 Dose: 150 mcg Documented by: Admin: 11/18/20 06:34 Dose: 150 mcg Documented by: GRANT Methylprednisolone Sodium Succinate (Solu-Medrol) 125 mg IVPUSH DAILY SUJATHA Last Admin: 11/26/20 08:05 Dose: 125 mg Documented by: Admin: 11/25/20 10:29 Dose: 125 mg Documented by: Admin: 11/24/20 09:23 Dose: 125 mg Documented by: Admin: 11/23/20 09:02 Dose: 125 mg Documented by: Admin: 11/22/20 09:20 Dose: 125 mg Documented by: Admin: 11/21/20 09:10 Dose: 125 mg Documented by: Admin: 11/20/20 10:28 Dose: 125 mg Documented by: Admin: 11/19/20 09:51 Dose: 125 mg Documented by: Admin: 11/18/20 09:40 Dose: 125 mg Documented by: Admin: 11/17/20 21:24 Dose: 125 mg Documented by: GRANT Potassium Chloride (Klor-Con M20) 20 meq PO DAILY [facility] Last Admin: 11/26/20 08:05 Dose: 20 meq Documented by: Admin: 11/25/20 10:29 Dose: 20 meq Documented by: Admin: 11/24/20 09:22 Dose: 20 meq Documented by: Admin: 11/23/20 09:02 Dose: 20 meq Documented by: Admin: 11/22/20 09:20 Dose: 20 meq Documented by: Admin: 11/21/20 09:10 Dose: 20 meq Documented by: Admin: 11/20/20 10:28 Dose: 20 meq Documented by: Admin: 11/19/20 09:51 Dose: 20 meq Documented by: Admin: 11/18/20 09:42 Dose: 20 meq Documented by: THEODROA Sodium Chloride (Saline Flush) 10 ml FLUSH ASDIRECTED PRN PRN Reason: Keep Vein Open Last Admin: 11/17/20 12:58 Dose: 10 ml Documented by: SHIRLEY Sodium Chloride (Saline Flush) 2.5 ml FLUSH ASDIRECTED PRN PRN Reason: Keep Vein Open Last Admin: 11/17/20 12:58 Dose: 2.5 ml Documented by: SHIRLEY Warfarin Sodium (Coumadin Ask) 1 each PO DAILY@1400 [facility] Last Admin: 11/26/20 14:29 Dose: Not Given Documented by: Admin: 11/25/20 15:36 Dose: Not Given Documented by: Admin: 11/24/20 15:42 Dose: Not Given Documented by: Admin: 11/23/20 14:09 Dose: Not Given Documented by: Admin: 11/22/20 14:18 Dose: Not Given Documented by: Admin: 11/21/20 14:34 Dose: Not Given Documented by: Admin: 11/20/20 13:00 Dose: Not Given Documented by: Admin: 11/19/20 14:07 Dose: Not Given Documented by: Admin: 11/18/20 15:01 Dose: Not Given Documented by: THEODORA Assessment/Plan Comment:: I performed a history and physical exam of the patient and discussed management with resident. I have reviewed the residents note and agree with documented findings and plan unless otherwise specified in my note.' .
[2020-11-17] MEDS: cefTRIAXone 1 GM in Premix Bag 1 BAG IV SCH (18:01)
[2020-11-17] MEDS ORDERED: Warfarin 2.5 MG Tab PO ONE (18:30)
[2020-11-17] MEDS: methylPREDNISolone Sodium Succinate 125 MG/2 ML SDV IVPUSH SCH (21:24)
[2020-11-17] MEDS: Enoxaparin 40 MG/0.4 ML Syringe SUBCUT SCH (21:25)
[2020-11-18] MEDS: Levothyroxine 150 MCG Tab PO SCH (06:34)
[2020-11-18 06:35] LABS: CARBON DIOXIDE,CO2 29.1 mmol/L (21.0-32.0)
[2020-11-18] MEDS ORDERED: methylPREDNISolone Sodium Succinate 125 MG/2 ML SDV IVPUSH SCH (09:00)
[2020-11-18] MEDS: methylPREDNISolone Sodium Succinate 125 MG/2 ML SDV IVPUSH SCH (09:40)
[2020-11-18] MEDS: Enoxaparin 40 MG/0.4 ML Syringe SUBCUT SCH ×2 (09:42→20:46)
[2020-11-18] MEDS: Furosemide 40 MG Tab PO SCH (09:42)
[2020-11-18] MEDS: Potassium Chloride 20 MEQ Tab.ER PO SCH (09:42)
[2020-11-18] MEDS: Folic Acid 1 MG Tab PO SCH (09:43)
[2020-11-18] MEDS ORDERED: Glucagon,Human Recombinant 1 MG Vial IM PRN (12:19)
[2020-11-18] MEDS ORDERED: 50% Dextrose in Water 50 ML Syringe IV PRN (12:19)
[2020-11-18] MEDS ORDERED: Warfarin 5 MG Tab PO SCH ×2 (14:00)
--- NOTE | 2020-11-18 15:08 | PCM.PN ---
<Yennifer Teresa - Last Filed: 11/18/20 14:58> - General Info Date of Service: 11/18/20 Subjective Update: Patient is a 80-year-old gentleman from [place], admitted for hypoxia secondary to possible underlying atypical pneumonia. Patient was started on antibiotics, has been on BiPAP overnight tolerating it well. There were no overnight events. Patient has no concerns or complaints this morning, denies any shortness of breath, chest pain, cough, fever, chills. Functional Status: Reports: Tolerating Diet, Urinating, Incentive Spirometry. Denies: New Symptoms - Review of Systems General: Reports: No Symptoms HEENT: Reports: No Symptoms Pulmonary: Reports: No Symptoms Cardiovascular: Reports: No Symptoms Gastrointestinal: Reports: No Symptoms Genitourinary: Reports: No Symptoms Musculoskeletal: Reports: No Symptoms Skin: Reports: No Symptoms Neurological: Reports: No Symptoms Psychiatric: Reports: No Symptoms - Patient Data Vitals - Most Recent: Last Vital Signs Temp 97.0 F 11/18/20 14:01 Pulse 68 11/18/20 14:01 Resp 20 11/18/20 10:00 BP 118/61 11/18/20 14:01 Pulse Ox 91 L 11/18/20 14:01 Weight - Most Recent: 119.023 kg I&O - Last 24 Hours: Intake & Output 11/17/20 11/18/20 11/18/20 22:59 06:59 14:59 Intake Total 500 Output Total 950 Balance -450 Lab Results Last 24 Hours: Laboratory Results - last 24 hr 11/17/20 11/17/20 11/17/20 Range/Units 12:52 15:55 22:00 WBC (4.0-11.0) K/uL RBC (4.50-5.90) M/uL Hgb (13.0-17.0) g/dL Hct (38.0-50.0) % MCV (80.0-98.0) fL MCH (27.0-32.0) pg MCHC (31.0-37.0) g/dL RDW Std Deviation (28.0-62.0) fl RDW Coeff of Sunny (11.0-15.0) % Plt Count (150-400) K/uL MPV (7.40-12.00) fL Neut % (Auto) (48.0-80.0) % Lymph % (Auto) (16.0-40.0) % [place] % (Auto) (0.0-15.0) % Eos % (Auto) (0.0-7.0) % Baso % (Auto) (0.0-1.5) % Neut # (Auto) (1.4-5.7) K/uL Lymph # (Auto) (0.6-2.4) K/uL [place] # (Auto) (0.0-0.8) K/uL Eos # (Auto) (0.0-0.7) K/uL Baso # (Auto) (0.0-0.1) K/uL Nucleated RBC % /100WBC Nucleated RBCs # K/uL INR 1.69 ABG pH 7.470 H (7.35-7.45) ABG pCO2 32 L (35-45) mmHG ABG pO2 47 L (75-100) mmHG ABG HCO3 23 (22-26) mEq/L ABG Total CO2 24 ABG Base Excess 0 (-2.0-2.0) Sodium (136-148) mmol/L Potassium (3.5-5.1) mmol/L Chloride (98-107) mmol/L Carbon Dioxide (21.0-32.0) mmol/L BUN (7.0-18.0) mg/dL Creatinine (0.8-1.3) mg/dL Est Cr Clr Drug Dosing mL/min Estimated GFR (MDRD) ml/min Glucose (74-106) mg/dL Calcium (8.5-10.1) mg/dL Phosphorus (2.6-4.7) mg/dL Magnesium (1.8-2.4) mg/dL Urine Color YELLOW Urine Appearance CLEAR Urine pH 7.5 (5.0-8.0) Ur Specific [place] 1.010 (1.001-1.035) Urine Protein TRACE H (NEGATIVE) mg/dL Urine Glucose (UA) NEGATIVE (NEGATIVE) mg/dL Urine Ketones NEGATIVE (NEGATIVE) mg/dL Urine Occult Blood TRACE-INTACT H (NEGATIVE) Urine Nitrite NEGATIVE (NEGATIVE) Urine Bilirubin NEGATIVE (NEGATIVE) Urine Urobilinogen 1.0 (<2.0) EU/dL Ur Leukocyte Esterase NEGATIVE (NEGATIVE) Urine RBC 0-2 (0-2/HPF) Urine WBC 0-2 (0-5/HPF) Ur Epithelial Cells FEW (NONE-FEW) Urine Bacteria RARE (NEGATIVE) 11/18/20 11/18/20 11/18/20 Range/Units 05:30 05:30 05:30 WBC 14.97 H (4.0-11.0) K/uL RBC 4.78 (4.50-5.90) M/uL Hgb 14.9 (13.0-17.0) g/dL Hct 46.4 (38.0-50.0) % MCV 97.1 (80.0-98.0) fL MCH 31.2 (27.0-32.0) pg MCHC 32.1 (31.0-37.0) g/dL RDW Std Deviation 51.6 (28.0-62.0) fl RDW Coeff of Sunny 15 (11.0-15.0) % Plt Count 194 (150-400) K/uL MPV 11.30 (7.40-12.00) fL Neut % (Auto) 93.2 H (48.0-80.0) % Lymph % (Auto) 3.9 L (16.0-40.0) % [place] % (Auto) 2.7 (0.0-15.0) % Eos % (Auto) 0.1 (0.0-7.0) % Baso % (Auto) 0.1 (0.0-1.5) % Neut # (Auto) 14.0 H (1.4-5.7) K/uL Lymph # (Auto) 0.6 (0.6-2.4) K/uL [place] # (Auto) 0.4 (0.0-0.8) K/uL Eos # (Auto) 0.0 (0.0-0.7) K/uL Baso # (Auto) 0.0 (0.0-0.1) K/uL Nucleated RBC % 0.0 /100WBC Nucleated RBCs # 0 K/uL INR 1.62 ABG pH (7.35-7.45) ABG pCO2 (35-45) mmHG ABG pO2 (75-100) mmHG ABG HCO3 (22-26) mEq/L ABG Total CO2 ABG Base Excess (-2.0-2.0) Sodium 135 L (136-148) mmol/L Potassium 5.0 (3.5-5.1) mmol/L Chloride 101 (98-107) mmol/L Carbon Dioxide 29.1 (21.0-32.0) mmol/L BUN 26 H (7.0-18.0) mg/dL Creatinine 1.3 (0.8-1.3) mg/dL Est Cr Clr Drug Dosing 54.17 mL/min Estimated GFR (MDRD) 53.1 ml/min Glucose 197 H (74-106) mg/dL Calcium 8.3 L (8.5-10.1) mg/dL Phosphorus 3.0 (2.6-4.7) mg/dL Magnesium 2.4 (1.8-2.4) mg/dL Urine Color Urine Appearance Urine pH (5.0-8.0) Ur Specific [place] (1.001-1.035) Urine Protein (NEGATIVE) mg/dL Urine Glucose (UA) (NEGATIVE) mg/dL Urine Ketones (NEGATIVE) mg/dL Urine Occult Blood (NEGATIVE) Urine Nitrite (NEGATIVE) Urine Bilirubin (NEGATIVE) Urine Urobilinogen (<2.0) EU/dL Ur Leukocyte Esterase (NEGATIVE) Urine RBC (0-2/HPF) Urine WBC (0-5/HPF) Ur Epithelial Cells (NONE-FEW) Urine Bacteria (NEGATIVE) Tom Results Last 24 Hours: Microbiology 11/17/20 12:52 Aerobic Blood Culture - Preliminary Blood - Venous - Lab Draw NO GROWTH AFTER 1 DAY Anaerobic Blood Culture - Preliminary NO GROWTH AFTER 1 DAY 11/17/20 12:52 Aerobic Blood Culture - Preliminary Blood - Venous NO GROWTH AFTER 1 DAY Anaerobic Blood Culture - Preliminary NO GROWTH AFTER 1 DAY Med Orders - Current: Current Medications Acetaminophen (Tylenol) 650 mg PO Q4H PRN PRN Reason: Pain (Mild 1-3)/fever Albuterol/Ipratropium (Duoneb 3.0-0.5 Mg/3 Ml) 3 ml NEB Q4HRRT PRN PRN Reason: Shortness Of Breath/wheezing Albuterol/Ipratropium (Combivent Respimat) 0 gm INH Q4H PRN PRN Reason: Dyspnea Dextrose/Water (Dextrose 50% In Water) 50 ml IV ASDIRECTED PRN PRN Reason: Hypoglycemia Enoxaparin Sodium (Lovenox) 40 mg SUBCUT Q12HR [facility] Last Admin: 11/18/20 09:42 Dose: 40 mg Documented by: Folic Acid (Folic Acid) 1 mg PO DAILY [facility] Last Admin: 11/18/20 09:43 Dose: 1 mg Documented by: Furosemide (Lasix) 40 mg PO DAILY [facility] Last Admin: 11/18/20 09:42 Dose: 40 mg Documented by: Glucagon (Glucagen) 1 mg IM ASDIRECTED PRN PRN Reason: Hypoglycemia Guaifenesin/Dextromethorphan (Robitussin Dm) 10 ml PO Q4H PRN PRN Reason: Cough Ceftriaxone Sodium/Dextrose 1 (gm/ Premix) 50 mls @ 100 mls/hr IV Q24H [facility] Last Admin: 11/17/20 18:01 Dose: 100 mls/hr Documented by: Azithromycin 500 mg/ Sodium (Chloride) 250 mls @ 250 mls/hr IV DAILY@1900 [facility] Insulin Aspart (Novolog) 0 unit SUBCUT TIDAC [facility]; Protocol Levothyroxine Sodium (Levothyroxine) 150 mcg PO ACBRK [facility] Last Admin: 11/18/20 06:34 Dose: 150 mcg Documented by: Methylprednisolone Sodium Succinate (Solu-Medrol) 125 mg IVPUSH DAILY [facility] Last Admin: 11/18/20 09:40 Dose: 125 mg Documented by: Potassium Chloride (Klor-Con M20) 20 meq PO DAILY [facility] Last Admin: 11/18/20 09:42 Dose: 20 meq Documented by: Sodium Chloride (Saline Flush) 10 ml FLUSH ASDIRECTED PRN PRN Reason: Keep Vein Open Last Admin: 11/17/20 12:58 Dose: 10 ml Documented by: Sodium Chloride (Saline Flush) 2.5 ml FLUSH ASDIRECTED PRN PRN Reason: Keep Vein Open Last Admin: 11/17/20 12:58 Dose: 2.5 ml Documented by: Warfarin Sodium (Coumadin Ask) 1 each PO DAILY@1400 [facility] Discontinued Medications Folic Acid (Folic Acid) 1 mg PO ASDIRECTED SUJATHA Furosemide (Lasix) 40 mg IVPUSH NOW ONE Stop: 11/17/20 17:21 Last Admin: 11/17/20 18:05 Dose: 40 mg Documented by: Vancomycin HCl 1 gm/ Sodium (Chloride) 250 mls @ 166 mls/hr IV ONETIME ONE Stop: 11/17/20 17:12 Last Admin: 11/17/20 15:48 Dose: 166 mls/hr Documented by: Ceftriaxone Sodium 1 gm/ (Sodium Chloride) 50 mls @ 100 mls/hr IV Q24H [facility] Azithromycin 500 mg/ Sodium (Chloride) 250 mls @ 250 mls/hr IV DAILY [facility] Last Admin: 11/17/20 18:52 Dose: 250 mls/hr Documented by: Iopamidol (Isovue Multipack-370 (76%)) 100 ml IVPUSH ONETIME ONE Stop: 11/17/20 14:50 Last Admin: 11/17/20 14:52 Dose: 100 ml Documented by: Methylprednisolone Sodium Succinate (Solu-Medrol) 125 mg IVPUSH DAILY [facility] Warfarin Sodium (Coumadin) 7.5 mg PO ONETIME ONE Stop: 11/17/20 18:31 Last Admin: 11/17/20 18:58 Dose: 7.5 mg Documented by: Warfarin Sodium (Coumadin) 5 mg PO 11/18/20@1400 [facility] Stop: 11/18/20 14:01 Warfarin Sodium (Coumadin) 5 mg PO 11/18/20@1400 [facility] Stop: 11/18/20 14:01 - Exam Quality Assessment: Supplemental Oxygen (Via BiPAP with breaks using heated high flow), DVT Prophylaxis (On long-term warfarin treatment, currently subtherapeutic INR) General: Alert, Oriented HEENT: Pupils Equal, Pupils Reactive, EOMI, Mucous Membr. Moist/[place] Lungs: Decreased Breath Sounds, Rales, Rhonchi Cardiovascular: Regular Rate, Regular Rhythm GI/Abdominal Exam: Normal Bowel Sounds, Soft, Non-Tender, No Organomegaly, No Distention, No Mass Extremities: Normal Inspection, No Pedal Edema, Normal Capillary Refill, Other (Skin changes from previous injury) Peripheral Pulses: 2+: Radial (L), Radial (R), Dorsalis Pedis (L), Dorsalis Pedis (R) Skin: Warm, Dry, Intact Neurological: No New Focal Deficit Psy/Mental Status: Alert, Normal Affect, Normal Mood Sepsis Event Note - Evaluation Sepsis Screening Result: No Definite Risk - Focused Exam Vital Signs: Vital Signs Temp Pulse Resp BP Pulse Ox 11/18/20 14:01 97.0 F 68 118/61 91 L 11/18/20 10:00 20 93 L 11/18/20 09:35 98.2 F 68 22 H 121/66 94 L 11/18/20 04:00 97.4 F 69 18 132/67 94 L - Problem List Review Problem List Initiated/Reviewed/Updated: Yes - Plan Plan:: Patient is an 80-year-old gentleman admitted for HCAP versus mycoplasma pneumonia. 1. Atypical pneumonia: Covid negative Chest x-ray showed diffuse interstitial opacities throughout Afebrile Leukocytosis 15 likely secondary to use of steroids for pulmonary fibrosis, will continue to trend daily a.m. CBC Provide supplemental oxygen per oxygen requirements, BiPAP overnight 50% FiO2 will wean as tolerated breaks using nasal cannula Tylenol p.o. intake. We will try to provide heated high flow if he tolerates well. Tylenol as needed for fever Rocephin and azithromycin Solu-Medrol for pulmonary fibrosis Blood cultures pending, will help narrow antibiotics DuoNebs every 4 hours 2. Has medical history of recurrent DVTs: Subtherapeutic INR 1.62, goal of 2-3, pharmacy to dose Coumadin accordingly. Therefore also started on Lovenox 40 twice daily 3. Hyperglycemia: 193, no history of diabetes, will place patient on sliding scale insulin since he is using steroids which could be elevating his sugars 4. Past medical history of hypothyroidism, fluid retention therefore on Lasix, resumed all home medications <True Geiger - Last Filed: 11/26/20 18:02> - Patient Data Vitals - Most Recent: Last Vital Signs Temp 36.9 C 11/26/20 16:00 Pulse 82 11/26/20 16:00 Resp 16 11/26/20 16:00 BP 145/67 H 11/26/20 16:00 Pulse Ox 95 11/26/20 16:00 I&O - Last 24 Hours: Intake & Output 11/26/20 11/26/20 11/26/20 06:59 14:59 22:59 Intake Total 150 1495 Output Total 355 1825 Balance -205 -330 Lab Results Last 24 Hours: Laboratory Results - last 24 hr 11/26/20 11/26/20 11/26/20 Range/Units 05:27 05:27 05:27 WBC 13.33 H (4.0-11.0) K/uL RBC 4.52 (4.50-5.90) M/uL Hgb 13.9 (13.0-17.0) g/dL Hct 43.2 (38.0-50.0) % MCV 95.6 (80.0-98.0) fL MCH 30.8 (27.0-32.0) pg MCHC 32.2 (31.0-37.0) g/dL RDW Std Deviation 51.1 (28.0-62.0) fl RDW Coeff of Sunny 15 (11.0-15.0) % Plt Count 203 (150-400) K/uL MPV 11.80 (7.40-12.00) fL Neut % (Auto) 76.0 (48.0-80.0) % Lymph % (Auto) 16.8 (16.0-40.0) % [place] % (Auto) 6.8 (0.0-15.0) % Eos % (Auto) 0.2 (0.0-7.0) % Baso % (Auto) 0.2 (0.0-1.5) % Neut # (Auto) 10.1 H (1.4-5.7) K/uL Lymph # (Auto) 2.2 (0.6-2.4) K/uL [place] # (Auto) 0.9 H (0.0-0.8) K/uL Eos # (Auto) 0.0 (0.0-0.7) K/uL Baso # (Auto) 0.0 (0.0-0.1) K/uL Nucleated RBC % 0.0 /100WBC Nucleated RBCs # 0 K/uL INR 2.60 Sodium 138 (136-148) mmol/L Potassium 4.5 (3.5-5.1) mmol/L Chloride 102 (98-107) mmol/L Carbon Dioxide 31.3 (21.0-32.0) mmol/L BUN 31 H (7.0-18.0) mg/dL Creatinine 0.9 (0.8-1.3) mg/dL Est Cr Clr Drug Dosing 78.24 mL/min Estimated GFR (MDRD) > 60.0 ml/min Glucose 131 H (74-106) mg/dL POC Glucose (60-110) mg/dL Calcium 8.1 L (8.5-10.1) mg/dL Total Bilirubin 0.7 (0.2-1.0) mg/dL AST 30 (15-37) IU/L ALT 133 H (14-63) IU/L Alkaline Phosphatase 64 (46-116) U/L Total Protein 4.9 L (6.4-8.2) g/dL Albumin 2.5 L (3.4-5.0) g/dL Globulin 2.4 L (2.6-4.0) g/dL Albumin/Globulin Ratio 1.0 (0.9-1.6) 11/26/20 11/26/20 Range/Units 08:03 12:44 WBC (4.0-11.0) K/uL RBC (4.50-5.90) M/uL Hgb (13.0-17.0) g/dL Hct (38.0-50.0) % MCV (80.0-98.0) fL MCH (27.0-32.0) pg MCHC (31.0-37.0) g/dL RDW Std Deviation (28.0-62.0) fl RDW Coeff of Sunny (11.0-15.0) % Plt Count (150-400) K/uL MPV (7.40-12.00) fL Neut % (Auto) (48.0-80.0) % Lymph % (Auto) (16.0-40.0) % [place] % (Auto) (0.0-15.0) % Eos % (Auto) (0.0-7.0) % Baso % (Auto) (0.0-1.5) % Neut # (Auto) (1.4-5.7) K/uL Lymph # (Auto) (0.6-2.4) K/uL [place] # (Auto) (0.0-0.8) K/uL Eos # (Auto) (0.0-0.7) K/uL Baso # (Auto) (0.0-0.1) K/uL Nucleated RBC % /100WBC Nucleated RBCs # K/uL INR Sodium (136-148) mmol/L Potassium (3.5-5.1) mmol/L Chloride (98-107) mmol/L Carbon Dioxide (21.0-32.0) mmol/L BUN (7.0-18.0) mg/dL Creatinine (0.8-1.3) mg/dL Est Cr Clr Drug Dosing mL/min Estimated GFR (MDRD) ml/min Glucose (74-106) mg/dL POC Glucose 95 155 H (60-110) mg/dL Calcium (8.5-10.1) mg/dL Total Bilirubin (0.2-1.0) mg/dL AST (15-37) IU/L ALT (14-63) IU/L Alkaline Phosphatase (46-116) U/L Total Protein (6.4-8.2) g/dL Albumin (3.4-5.0) g/dL Globulin (2.6-4.0) g/dL Albumin/Globulin Ratio (0.9-1.6) Med Orders - Current: Current Medications Acetaminophen (Tylenol) 650 mg PO Q4H PRN PRN Reason: Pain (Mild 1-3)/fever Albuterol/Ipratropium (Duoneb 3.0-0.5 Mg/3 Ml) 3 ml NEB Q4HRRT PRN PRN Reason: Shortness Of Breath/wheezing Albuterol/Ipratropium (Combivent Respimat) 0 gm INH Q4H PRN PRN Reason: Dyspnea Dextrose/Water (Dextrose 50% In Water) 50 ml IV ASDIRECTED PRN PRN Reason: Hypoglycemia Folic Acid (Folic Acid) 1 mg PO DAILY [facility] Last Admin: 11/26/20 08:05 Dose: 1 mg Documented by: Furosemide (Lasix) 40 mg PO DAILY [facility] Last Admin: 11/26/20 08:05 Dose: 40 mg Documented by: Glucagon (Glucagen) 1 mg IM ASDIRECTED PRN PRN Reason: Hypoglycemia Guaifenesin/Dextromethorphan (Robitussin Dm) 10 ml PO Q4H PRN PRN Reason: Cough Levofloxacin/Dextrose 750 mg/ (Premix) 150 mls @ 100 mls/hr IV Q24H [facility] Last Admin: 11/26/20 11:15 Dose: 100 mls/hr Documented by: Cefepime HCl 2 gm/ Premix 50 mls @ 100 mls/hr IV Q8H [facility] Last Admin: 11/26/20 11:14 Dose: 100 mls/hr Documented by: Insulin Aspart (Novolog) 0 unit SUBCUT TIDAC [facility]; Protocol Last Admin: 11/26/20 14:28 Dose: 1 unit Documented by: Levothyroxine Sodium (Levothyroxine) 150 mcg PO ACBRK [facility] Last Admin: 11/26/20 08:04 Dose: 150 mcg Documented by: Methylprednisolone Sodium Succinate (Solu-Medrol) 125 mg IVPUSH DAILY [facility] Last Admin: 11/26/20 08:05 Dose: 125 mg Documented by: Potassium Chloride (Klor-Con M20) 20 meq PO DAILY [facility] Last Admin: 11/26/20 08:05 Dose: 20 meq Documented by: Sodium Chloride (Saline Flush) 10 ml FLUSH ASDIRECTED PRN PRN Reason: Keep Vein Open Last Admin: 11/17/20 12:58 Dose: 10 ml Documented by: Sodium Chloride (Saline Flush) 2.5 ml FLUSH ASDIRECTED PRN PRN Reason: Keep Vein Open Last Admin: 11/17/20 12:58 Dose: 2.5 ml Documented by: Warfarin Sodium (Coumadin Ask) 1 each PO DAILY@1400 [facility] Last Admin: 11/26/20 14:29 Dose: Not Given Documented by: Discontinued Medications Enoxaparin Sodium (Lovenox) 40 mg SUBCUT Q12HR [facility] Last Admin: 11/18/20 20:46 Dose: 40 mg Documented by: Folic Acid (Folic Acid) 1 mg PO ASDIRECTED [facility] Furosemide (Lasix) 40 mg IVPUSH NOW ONE Stop: 11/17/20 17:21 Last Admin: 11/17/20 18:05 Dose: 40 mg Documented by: Vancomycin HCl 1 gm/ Sodium (Chloride) 250 mls @ 166 mls/hr IV ONETIME ONE Stop: 11/17/20 17:12 Last Admin: 11/17/20 15:48 Dose: 166 mls/hr Documented by: Ceftriaxone Sodium 1 gm/ (Sodium Chloride) 50 mls @ 100 mls/hr IV Q24H [facility] Azithromycin 500 mg/ Sodium (Chloride) 250 mls @ 250 mls/hr IV DAILY [facility] Last Admin: 11/17/20 18:52 Dose: 250 mls/hr Documented by: Ceftriaxone Sodium/Dextrose 1 (gm/ Premix) 50 mls @ 100 mls/hr IV Q24H [facility] Last Admin: 11/19/20 17:02 Dose: 100 mls/hr Documented by: Azithromycin 500 mg/ Sodium (Chloride) 250 mls @ 250 mls/hr IV DAILY@1900 [facility] Last Admin: 11/19/20 18:58 Dose: 250 mls/hr Documented by: Levofloxacin/Dextrose (Levaquin In D5w 750 Mg/150 Ml) Confirm Administered Dose 150 mls @ as directed IV .STK-MED ONE Stop: 11/25/20 10:44 Last Admin: 11/25/20 12:00 Dose: Not Given Documented by: Iopamidol (Isovue Multipack-370 (76%)) 100 ml IVPUSH ONETIME ONE Stop: 11/17/20 14:50 Last Admin: 11/17/20 14:52 Dose: 100 ml Documented by: Methylprednisolone Sodium Succinate (Solu-Medrol) 125 mg IVPUSH DAILY [facility] Warfarin Sodium (Coumadin) 7.5 mg PO ONETIME ONE Stop: 11/17/20 18:31 Last Admin: 11/17/20 18:58 Dose: 7.5 mg Documented by: Warfarin Sodium (Coumadin) 5 mg PO 11/18/20@1400 [facility] Stop: 11/18/20 14:01 Last Admin: 11/18/20 15:00 Dose: 5 mg Documented by: Warfarin Sodium (Coumadin) 5 mg PO 11/18/20@1400 [facility] Stop: 11/18/20 14:01 Last Admin: 11/18/20 15:00 Dose: Not Given Documented by: Warfarin Sodium (Coumadin) 2 mg PO 11/19/20@1400 [facility] Stop: 11/19/20 14:01 Last Admin: 11/19/20 13:48 Dose: 2 mg Documented by: Warfarin Sodium (Coumadin) 2.5 mg PO DAILY@1400 ONE Stop: 11/22/20 14:01 Last Admin: 11/22/20 13:57 Dose: 2.5 mg Documented by: Warfarin Sodium (Coumadin) 4 mg PO DAILY@1400 ONE Stop: 11/23/20 14:01 Last Admin: 11/23/20 13:45 Dose: 4 mg Documented by: Warfarin Sodium (Coumadin) 2.5 mg PO DAILY@1400 ONE Stop: 11/24/20 14:01 Last Admin: 11/24/20 14:50 Dose: 2.5 mg Documented by: Warfarin Sodium (Coumadin) 2 mg PO DAILY@1530 ONE Stop: 11/25/20 15:31 Last Admin: 11/25/20 15:40 Dose: 2 mg Documented by: Warfarin Sodium (Coumadin) 2 mg PO 11/26/20@1400 [facility] Stop: 11/26/20 16:00 Last Admin: 11/26/20 14:29 Dose: 2 mg Documented by: Sepsis Event Note - Focused Exam Vital Signs: Vital Signs Temp Pulse Resp BP BP Pulse Ox 11/26/20 16:00 36.9 C 82 16 145/67 H 95 11/26/20 11:11 36.6 C 75 16 123/56 L 92 L 11/26/20 08:01 36.4 C 65 16 120/58 L 93 L - Plan Plan:: I have seen and evaluated the patient. I have discussed findings and treatment plan with resident. I agree with the assessment and plan in the following note.
[2020-11-18] MEDS: Insulin Aspart 100 Units/ML 3 ML Pen SUBCUT SCH (17:59)
[2020-11-18] MEDS: cefTRIAXone 1 GM in Premix Bag 1 BAG IV SCH (18:00)
[2020-11-18] MEDS: Azithromycin 500 MG in Sodium Chloride 0.9% 250 ML IV SCH (19:04)
--- NOTE | 2020-11-19 02:38 | PCM.SN.2 ---
#1 Interpretation EKG Date: 11/17/20 Time: 12:39 Rhythm: NSR [place]: Normal P-Wave: Present QRS: Normal ST-T: Normal QT: Normal Comparison: NA - No Prior EKG EKG Interpretation Comments: Sinus Rhythm
[2020-11-19 06:04] LABS: BLOOD UREA NITROGEN,BUN 31 mg/dL (7.0-18.0); CARBON DIOXIDE,CO2 27.3 mmol/L (21.0-32.0); CHLORIDE,CL 103 mmol/L (98-107); GLUCOSE RANDOM 154 mg/dL (74-106); POTASSIUM,K 4.2 mmol/L (3.5-5.1); SODIUM,NA 136 mmol/L (136-148)
[2020-11-19] MEDS: Levothyroxine 150 MCG Tab PO SCH (06:38)
[2020-11-19] MEDS: Insulin Aspart 100 Units/ML 3 ML Pen SUBCUT SCH ×3 (07:34→17:08)
[2020-11-19] MEDS: Folic Acid 1 MG Tab PO SCH (09:51)
[2020-11-19] MEDS: methylPREDNISolone Sodium Succinate 125 MG/2 ML SDV IVPUSH SCH (09:51)
[2020-11-19] MEDS: Furosemide 40 MG Tab PO SCH (09:51)
[2020-11-19] MEDS: Potassium Chloride 20 MEQ Tab.ER PO SCH (09:51)
[2020-11-19] MEDS ORDERED: Warfarin 2 MG Tab PO SCH (14:00)
[2020-11-19] MEDS: cefTRIAXone 1 GM in Premix Bag 1 BAG IV SCH (17:02)
--- NOTE | 2020-11-19 17:58 | PCM.PN ---
- General Info Date of Service: 11/19/20 Subjective Update: Patient is a 80-year-old gentleman from [place], admitted for hypoxia secondary to possible underlying atypical pneumonia and worsening pulmonary fibrosis. Tolerated heated high flow well overnight, states he feels well while sitting in his chair this morning. There were no overnight events. Patient has no concerns or complaints this morning, denies any shortness of breath, chest pain, cough, fever, chills. Functional Status: Reports: Tolerating Diet, Incentive Spirometry - Review of Systems General: Reports: No Symptoms HEENT: Reports: No Symptoms Pulmonary: Reports: No Symptoms Cardiovascular: Reports: No Symptoms Gastrointestinal: Reports: No Symptoms Genitourinary: Reports: No Symptoms Musculoskeletal: Reports: No Symptoms Skin: Reports: No Symptoms Neurological: Reports: No Symptoms Psychiatric: Reports: No Symptoms - Patient Data Vitals - Most Recent: Last Vital Signs Temp 97.0 F 11/19/20 16:00 Pulse 80 11/19/20 16:00 Resp 20 11/19/20 16:00 BP 130/61 11/19/20 16:00 Pulse Ox 91 L 11/19/20 16:00 Weight - Most Recent: 262 lb 6.4 oz I&O - Last 24 Hours: Intake & Output 11/19/20 11/19/20 11/19/20 06:59 14:59 22:59 Intake Total 350 1020 Output Total 0 575 Balance 350 445 Lab Results Last 24 Hours: Laboratory Results - last 24 hr 11/17/20 11/18/20 11/19/20 Range/Units 12:52 21:27 04:55 WBC (4.0-11.0) K/uL RBC (4.50-5.90) M/uL Hgb (13.0-17.0) g/dL Hct (38.0-50.0) % MCV (80.0-98.0) fL MCH (27.0-32.0) pg MCHC (31.0-37.0) g/dL RDW Std Deviation (28.0-62.0) fl RDW Coeff of Sunny (11.0-15.0) % Plt Count (150-400) K/uL MPV (7.40-12.00) fL Neut % (Auto) (48.0-80.0) % Lymph % (Auto) (16.0-40.0) % [place] % (Auto) (0.0-15.0) % Eos % (Auto) (0.0-7.0) % Baso % (Auto) (0.0-1.5) % Neut # (Auto) (1.4-5.7) K/uL Lymph # (Auto) (0.6-2.4) K/uL [place] # (Auto) (0.0-0.8) K/uL Eos # (Auto) (0.0-0.7) K/uL Baso # (Auto) (0.0-0.1) K/uL Nucleated RBC % /100WBC Nucleated RBCs # K/uL INR 2.68 Sodium (136-148) mmol/L Potassium (3.5-5.1) mmol/L Chloride (98-107) mmol/L Carbon Dioxide (21.0-32.0) mmol/L BUN (7.0-18.0) mg/dL Creatinine (0.8-1.3) mg/dL Est Cr Clr Drug Dosing mL/min Estimated GFR (MDRD) ml/min Glucose (74-106) mg/dL POC Glucose 259 H (60-110) mg/dL Calcium (8.5-10.1) mg/dL Magnesium (1.8-2.4) mg/dL Total Bilirubin (0.2-1.0) mg/dL AST (15-37) IU/L ALT (14-63) IU/L Alkaline Phosphatase (46-116) U/L B-Natriuretic Peptide 167 H (<100) PG/ML Total Protein (6.4-8.2) g/dL Albumin (3.4-5.0) g/dL Globulin (2.6-4.0) g/dL Albumin/Globulin Ratio (0.9-1.6) SARS-CoV-2 RNA (MELIDA) (NEGATIVE) 11/19/20 11/19/20 11/19/20 Range/Units 04:55 04:55 06:35 WBC 20.83 H (4.0-11.0) K/uL RBC 4.29 L (4.50-5.90) M/uL Hgb 13.5 (13.0-17.0) g/dL Hct 41.3 (38.0-50.0) % MCV 96.3 (80.0-98.0) fL MCH 31.5 (27.0-32.0) pg MCHC 32.7 (31.0-37.0) g/dL RDW Std Deviation 50.1 (28.0-62.0) fl RDW Coeff of Sunny 14 (11.0-15.0) % Plt Count 220 (150-400) K/uL MPV 12.20 H (7.40-12.00) fL Neut % (Auto) 94.0 H (48.0-80.0) % Lymph % (Auto) 1.2 L (16.0-40.0) % [place] % (Auto) 4.8 (0.0-15.0) % Eos % (Auto) 0.0 (0.0-7.0) % Baso % (Auto) 0.0 (0.0-1.5) % Neut # (Auto) 19.6 H (1.4-5.7) K/uL Lymph # (Auto) 0.3 L (0.6-2.4) K/uL [place] # (Auto) 1.0 H (0.0-0.8) K/uL Eos # (Auto) 0.0 (0.0-0.7) K/uL Baso # (Auto) 0.0 (0.0-0.1) K/uL Nucleated RBC % 0.9 /100WBC Nucleated RBCs # 0 K/uL INR Sodium 136 (136-148) mmol/L Potassium 4.2 (3.5-5.1) mmol/L Chloride 103 (98-107) mmol/L Carbon Dioxide 27.3 (21.0-32.0) mmol/L BUN 31 H (7.0-18.0) mg/dL Creatinine 1.0 (0.8-1.3) mg/dL Est Cr Clr Drug Dosing 70.42 mL/min Estimated GFR (MDRD) > 60.0 ml/min Glucose 154 H (74-106) mg/dL POC Glucose 167 H (60-110) mg/dL Calcium 8.6 (8.5-10.1) mg/dL Magnesium 2.4 (1.8-2.4) mg/dL Total Bilirubin 0.6 (0.2-1.0) mg/dL AST 50 H (15-37) IU/L ALT 44 (14-63) IU/L Alkaline Phosphatase 68 (46-116) U/L B-Natriuretic Peptide (<100) PG/ML Total Protein 5.5 L (6.4-8.2) g/dL Albumin 2.4 L (3.4-5.0) g/dL Globulin 3.1 (2.6-4.0) g/dL Albumin/Globulin Ratio 0.8 L (0.9-1.6) SARS-CoV-2 RNA (MELIDA) (NEGATIVE) 11/19/20 11/19/20 11/19/20 Range/Units 11:42 12:05 16:52 WBC (4.0-11.0) K/uL RBC (4.50-5.90) M/uL Hgb (13.0-17.0) g/dL Hct (38.0-50.0) % MCV (80.0-98.0) fL MCH (27.0-32.0) pg MCHC (31.0-37.0) g/dL RDW Std Deviation (28.0-62.0) fl RDW Coeff of Sunny (11.0-15.0) % Plt Count (150-400) K/uL MPV (7.40-12.00) fL Neut % (Auto) (48.0-80.0) % Lymph % (Auto) (16.0-40.0) % [place] % (Auto) (0.0-15.0) % Eos % (Auto) (0.0-7.0) % Baso % (Auto) (0.0-1.5) % Neut # (Auto) (1.4-5.7) K/uL Lymph # (Auto) (0.6-2.4) K/uL [place] # (Auto) (0.0-0.8) K/uL Eos # (Auto) (0.0-0.7) K/uL Baso # (Auto) (0.0-0.1) K/uL Nucleated RBC % /100WBC Nucleated RBCs # K/uL INR Sodium (136-148) mmol/L Potassium (3.5-5.1) mmol/L Chloride (98-107) mmol/L Carbon Dioxide (21.0-32.0) mmol/L BUN (7.0-18.0) mg/dL Creatinine (0.8-1.3) mg/dL Est Cr Clr Drug Dosing mL/min Estimated GFR (MDRD) ml/min Glucose (74-106) mg/dL POC Glucose 185 H 244 H (60-110) mg/dL Calcium (8.5-10.1) mg/dL Magnesium (1.8-2.4) mg/dL Total Bilirubin (0.2-1.0) mg/dL AST (15-37) IU/L ALT (14-63) IU/L Alkaline Phosphatase (46-116) U/L B-Natriuretic Peptide (<100) PG/ML Total Protein (6.4-8.2) g/dL Albumin (3.4-5.0) g/dL Globulin (2.6-4.0) g/dL Albumin/Globulin Ratio (0.9-1.6) SARS-CoV-2 RNA (MELIDA) NEGATIVE (NEGATIVE) Tom Results Last 24 Hours: Microbiology 11/17/20 12:52 Aerobic Blood Culture - Preliminary Blood - Venous - Lab Draw NO GROWTH AFTER 2 DAYS Anaerobic Blood Culture - Preliminary NO GROWTH AFTER 2 DAYS 11/17/20 12:52 Aerobic Blood Culture - Preliminary Blood - Venous NO GROWTH AFTER 2 DAYS Anaerobic Blood Culture - Preliminary NO GROWTH AFTER 2 DAYS Med Orders - Current: Current Medications Acetaminophen (Tylenol) 650 mg PO Q4H PRN PRN Reason: Pain (Mild 1-3)/fever Albuterol/Ipratropium (Duoneb 3.0-0.5 Mg/3 Ml) 3 ml NEB Q4HRRT PRN PRN Reason: Shortness Of Breath/wheezing Albuterol/Ipratropium (Combivent Respimat) 0 gm INH Q4H PRN PRN Reason: Dyspnea Dextrose/Water (Dextrose 50% In Water) 50 ml IV ASDIRECTED PRN PRN Reason: Hypoglycemia Folic Acid (Folic Acid) 1 mg PO DAILY [facility] Last Admin: 11/19/20 09:51 Dose: 1 mg Documented by: Furosemide (Lasix) 40 mg PO DAILY [facility] Last Admin: 11/19/20 09:51 Dose: 40 mg Documented by: Glucagon (Glucagen) 1 mg IM ASDIRECTED PRN PRN Reason: Hypoglycemia Guaifenesin/Dextromethorphan (Robitussin Dm) 10 ml PO Q4H PRN PRN Reason: Cough Ceftriaxone Sodium/Dextrose 1 (gm/ Premix) 50 mls @ 100 mls/hr IV Q24H [facility] Last Admin: 11/19/20 17:02 Dose: 100 mls/hr Documented by: Azithromycin 500 mg/ Sodium (Chloride) 250 mls @ 250 mls/hr IV DAILY@1900 [facility] Last Admin: 11/18/20 19:04 Dose: 250 mls/hr Documented by: Insulin Aspart (Novolog) 0 unit SUBCUT TIDAC [facility]; Protocol Last Admin: 11/19/20 17:08 Dose: 3 unit Documented by: Levothyroxine Sodium (Levothyroxine) 150 mcg PO ACBRK [facility] Last Admin: 11/19/20 06:38 Dose: 150 mcg Documented by: Methylprednisolone Sodium Succinate (Solu-Medrol) 125 mg IVPUSH DAILY [facility] Last Admin: 11/19/20 09:51 Dose: 125 mg Documented by: Potassium Chloride (Klor-Con M20) 20 meq PO DAILY [facility] Last Admin: 11/19/20 09:51 Dose: 20 meq Documented by: Sodium Chloride (Saline Flush) 10 ml FLUSH ASDIRECTED PRN PRN Reason: Keep Vein Open Last Admin: 11/17/20 12:58 Dose: 10 ml Documented by: Sodium Chloride (Saline Flush) 2.5 ml FLUSH ASDIRECTED PRN PRN Reason: Keep Vein Open Last Admin: 11/17/20 12:58 Dose: 2.5 ml Documented by: Warfarin Sodium (Coumadin Ask) 1 each PO DAILY@1400 [facility] Last Admin: 11/19/20 14:07 Dose: Not Given Documented by: Discontinued Medications Enoxaparin Sodium (Lovenox) 40 mg SUBCUT Q12HR [facility] Last Admin: 11/18/20 20:46 Dose: 40 mg Documented by: Folic Acid (Folic Acid) 1 mg PO ASDIRECTED [facility] Furosemide (Lasix) 40 mg IVPUSH NOW ONE Stop: 11/17/20 17:21 Last Admin: 11/17/20 18:05 Dose: 40 mg Documented by: Vancomycin HCl 1 gm/ Sodium (Chloride) 250 mls @ 166 mls/hr IV ONETIME ONE Stop: 12/27/20 17:12 Last Admin: 11/17/20 15:48 Dose: 166 mls/hr Documented by: Ceftriaxone Sodium 1 gm/ (Sodium Chloride) 50 mls @ 100 mls/hr IV Q24H [facility] Azithromycin 500 mg/ Sodium (Chloride) 250 mls @ 250 mls/hr IV DAILY [facility] Last Admin: 11/17/20 18:52 Dose: 250 mls/hr Documented by: Iopamidol (Isovue Multipack-370 (76%)) 100 ml IVPUSH ONETIME ONE Stop: 11/17/20 14:50 Last Admin: 11/17/20 14:52 Dose: 100 ml Documented by: Methylprednisolone Sodium Succinate (Solu-Medrol) 125 mg IVPUSH DAILY [facility] Warfarin Sodium (Coumadin) 7.5 mg PO ONETIME ONE Stop: 11/17/20 18:31 Last Admin: 11/17/20 18:58 Dose: 7.5 mg Documented by: Warfarin Sodium (Coumadin) 5 mg PO 11/18/20@1400 [facility] Stop: 11/18/20 14:01 Last Admin: 11/18/20 15:00 Dose: 5 mg Documented by: Warfarin Sodium (Coumadin) 5 mg PO 11/18/20@1400 [facility] Stop: 11/18/20 14:01 Last Admin: 11/18/20 15:00 Dose: Not Given Documented by: Warfarin Sodium (Coumadin) 2 mg PO 11/19/20@1400 [facility] Stop: 11/19/20 14:01 Last Admin: 11/19/20 13:48 Dose: 2 mg Documented by: - Exam Quality Assessment: Supplemental Oxygen, DVT Prophylaxis (On long-term warfarin which is therapeutic today) General: Alert, Oriented, Cooperative, No Acute Distress HEENT: Pupils Equal, Pupils Reactive, EOMI, Mucous Membr. Moist/[place] Neck: Supple. No: Lymphadenopathy Lungs: Decreased Breath Sounds Cardiovascular: Regular Rate, Regular Rhythm GI/Abdominal Exam: Normal Bowel Sounds, Soft, Non-Tender, No Distention, No Abnormal Bruit, No Mass Extremities: Normal Inspection, Normal Range of Motion, No Pedal Edema, Normal Capillary Refill Peripheral Pulses: 2+: Radial (L), Radial (R), Dorsalis Pedis (L), Dorsalis Pedis (R) Skin: Warm, Dry, Intact Neurological: No New Focal Deficit Psy/Mental Status: Alert, Normal Affect, Normal Mood Sepsis Event Note - Evaluation Sepsis Screening Result: No Definite Risk - Focused Exam Vital Signs: Vital Signs Temp Pulse Resp BP Pulse Ox 11/19/20 16:00 97.0 F 80 20 130/61 91 L 11/19/20 12:01 97.5 F 78 18 119/57 L 91 L 11/19/20 08:00 97.1 F 71 22 H 120/59 L 90 L - Problem List Review Problem List Initiated/Reviewed/Updated: Yes - My Orders Last 24 Hours: My Active Orders 11/20/20 05:11 CBC WITH AUTO DIFF [HEME] AM COMPREHENSIVE METABOLIC PN,CMP [CHEM] AM MAGNESIUM [CHEM] AM 11/21/20 05:11 CBC WITH AUTO DIFF [HEME] AM COMPREHENSIVE METABOLIC PN,CMP [CHEM] AM MAGNESIUM [CHEM] AM 11/22/20 05:11 CBC WITH AUTO DIFF [HEME] AM COMPREHENSIVE METABOLIC PN,CMP [CHEM] AM MAGNESIUM [CHEM] AM - Plan Plan:: Patient is an 80-year-old gentleman admitted for HCAP versus mycoplasma pneumonia. 1. Atypical pneumonia: Covid negative, repeat test today Chest x-ray showed diffuse interstitial opacities throughout Patient remains afebrile Increased leukocytosis 20.8 today likely secondary to use of steroids for pulmonary fibrosis, will continue to trend daily a.m. CBC Provide supplemental oxygen per oxygen requirements, remained on heated high flow 10 L overnight tolerating it well, will try to wean as tolerated Tylenol as needed for fever Rocephin and azithromycin Solu-Medrol for pulmonary fibrosis No growth on blood cultures DuoNebs every 4 hours 2. Has medical history of recurrent DVTs: Therapeutic INR today of 2.7, goal of 2-3 to be maintained, pharmacy to dose Coumadin accordingly. 3. Hyperglycemia: 193, no history of diabetes, will place patient on sliding scale insulin since he is using steroids which could be elevating his sugars 4. Past medical history of hypothyroidism, fluid retention therefore on Lasix, resumed all home medications
[2020-11-19] MEDS: Azithromycin 500 MG in Sodium Chloride 0.9% 250 ML IV SCH (18:58)
[2020-11-20 06:29] LABS: BLOOD UREA NITROGEN,BUN 30 mg/dL (7.0-18.0); CARBON DIOXIDE,CO2 28.3 mmol/L (21.0-32.0); CHLORIDE,CL 105 mmol/L (98-107); GLUCOSE RANDOM 141 mg/dL (74-106); POTASSIUM,K 4.7 mmol/L (3.5-5.1); SODIUM,NA 140 mmol/L (136-148)
[2020-11-20] MEDS: Insulin Aspart 100 Units/ML 3 ML Pen SUBCUT SCH ×3 (07:48→17:44)
[2020-11-20] MEDS: Levothyroxine 150 MCG Tab PO SCH (08:09)
[2020-11-20] MEDS: Furosemide 40 MG Tab PO SCH (10:28)
[2020-11-20] MEDS: methylPREDNISolone Sodium Succinate 125 MG/2 ML SDV IVPUSH SCH (10:28)
[2020-11-20] MEDS: Potassium Chloride 20 MEQ Tab.ER PO SCH (10:28)
[2020-11-20] MEDS: Folic Acid 1 MG Tab PO SCH (10:28)
[2020-11-20] MEDS: Cefepime 2 GM in Premix Bag 1 BAG IV SCH ×2 (12:23→18:56)
[2020-11-20] MEDS: Levofloxacin/Dextrose 5%-Water 750 MG in Premix Bag 1 BAG IV SCH (12:57)
--- NOTE | 2020-11-20 17:01 | PCM.PN ---
- General Info Date of Service: 11/20/20 Subjective Update: Patient is a 80-year-old gentleman from [place], admitted for hypoxia secondary to possible underlying atypical pneumonia and worsening pulmonary fibrosis. There were no overnight events, although early this morning was satting 84% on 57% heated high flow therefore we increased to 82% heated high flow allowing the patient to saturation 90% comfortably. Patient was seen and examined at bedside all questions and concerns were answered. Functional Status: Reports: Tolerating Diet, Incentive Spirometry - Review of Systems General: Reports: No Symptoms HEENT: Reports: No Symptoms Pulmonary: Reports: Cough, Sputum Cardiovascular: Reports: No Symptoms Gastrointestinal: Reports: No Symptoms Genitourinary: Reports: No Symptoms Musculoskeletal: Reports: No Symptoms Skin: Reports: No Symptoms Neurological: Reports: No Symptoms Psychiatric: Reports: No Symptoms - Patient Data Vitals - Most Recent: Last Vital Signs Temp 97.7 F 11/20/20 16:32 Pulse 72 11/20/20 16:32 Resp 20 11/20/20 16:32 BP 108/55 L 11/20/20 16:32 Pulse Ox 93 L 11/20/20 16:32 Weight - Most Recent: 262 lb 6.4 oz I&O - Last 24 Hours: Intake & Output 11/20/20 11/20/20 11/20/20 06:59 14:59 22:59 Intake Total 991 165 5786 Output Total 400 970 Balance 50 200 190 Lab Results Last 24 Hours: Laboratory Results - last 24 hr 11/19/20 11/20/20 11/20/20 Range/Units 16:52 05:47 05:47 WBC 23.58 H (4.0-11.0) K/uL RBC 4.30 L (4.50-5.90) M/uL Hgb 13.2 (13.0-17.0) g/dL Hct 41.7 (38.0-50.0) % MCV 97.0 (80.0-98.0) fL MCH 30.7 (27.0-32.0) pg MCHC 31.7 (31.0-37.0) g/dL RDW Std Deviation 52.0 (28.0-62.0) fl RDW Coeff of Sunny 15 (11.0-15.0) % Plt Count 225 (150-400) K/uL MPV 11.90 (7.40-12.00) fL Neut % (Auto) 92.2 H (48.0-80.0) % Lymph % (Auto) 3.4 L (16.0-40.0) % [place] % (Auto) 4.2 (0.0-15.0) % Eos % (Auto) 0.1 (0.0-7.0) % Baso % (Auto) 0.1 (0.0-1.5) % Neut # (Auto) 21.8 H (1.4-5.7) K/uL Lymph # (Auto) 0.8 (0.6-2.4) K/uL [place] # (Auto) 1.0 H (0.0-0.8) K/uL Eos # (Auto) 0.0 (0.0-0.7) K/uL Baso # (Auto) 0.0 (0.0-0.1) K/uL Nucleated RBC % 0.0 /100WBC Nucleated RBCs # 0 K/uL INR 4.42 Sodium (136-148) mmol/L Potassium (3.5-5.1) mmol/L Chloride (98-107) mmol/L Carbon Dioxide (21.0-32.0) mmol/L BUN (7.0-18.0) mg/dL Creatinine (0.8-1.3) mg/dL Est Cr Clr Drug Dosing mL/min Estimated GFR (MDRD) ml/min Glucose (74-106) mg/dL POC Glucose 244 H (60-110) mg/dL Calcium (8.5-10.1) mg/dL Magnesium (1.8-2.4) mg/dL Total Bilirubin (0.2-1.0) mg/dL AST (15-37) IU/L ALT (14-63) IU/L Alkaline Phosphatase (46-116) U/L Total Protein (6.4-8.2) g/dL Albumin (3.4-5.0) g/dL Globulin (2.6-4.0) g/dL Albumin/Globulin Ratio (0.9-1.6) 11/20/20 11/20/20 11/20/20 Range/Units 05:47 06:06 12:29 WBC (4.0-11.0) K/uL RBC (4.50-5.90) M/uL Hgb (13.0-17.0) g/dL Hct (38.0-50.0) % MCV (80.0-98.0) fL MCH (27.0-32.0) pg MCHC (31.0-37.0) g/dL RDW Std Deviation (28.0-62.0) fl RDW Coeff of Sunny (11.0-15.0) % Plt Count (150-400) K/uL MPV (7.40-12.00) fL Neut % (Auto) (48.0-80.0) % Lymph % (Auto) (16.0-40.0) % [place] % (Auto) (0.0-15.0) % Eos % (Auto) (0.0-7.0) % Baso % (Auto) (0.0-1.5) % Neut # (Auto) (1.4-5.7) K/uL Lymph # (Auto) (0.6-2.4) K/uL [place] # (Auto) (0.0-0.8) K/uL Eos # (Auto) (0.0-0.7) K/uL Baso # (Auto) (0.0-0.1) K/uL Nucleated RBC % /100WBC Nucleated RBCs # K/uL INR Sodium 140 (136-148) mmol/L Potassium 4.7 (3.5-5.1) mmol/L Chloride 105 (98-107) mmol/L Carbon Dioxide 28.3 (21.0-32.0) mmol/L BUN 30 H (7.0-18.0) mg/dL Creatinine 1.1 (0.8-1.3) mg/dL Est Cr Clr Drug Dosing 64.02 mL/min Estimated GFR (MDRD) > 60.0 ml/min Glucose 141 H (74-106) mg/dL POC Glucose 135 H 125 H (60-110) mg/dL Calcium 8.6 (8.5-10.1) mg/dL Magnesium 2.3 (1.8-2.4) mg/dL Total Bilirubin 0.6 (0.2-1.0) mg/dL AST 51 H (15-37) IU/L ALT 64 H (14-63) IU/L Alkaline Phosphatase 70 (46-116) U/L Total Protein 5.4 L (6.4-8.2) g/dL Albumin 2.5 L (3.4-5.0) g/dL Globulin 2.9 (2.6-4.0) g/dL Albumin/Globulin Ratio 0.9 (0.9-1.6) Tom Results Last 24 Hours: Microbiology 11/20/20 14:40 Gram Stain - Final Sputum - Expectorated 11/17/20 12:52 Aerobic Blood Culture - Preliminary Blood - Venous - Lab Draw NO GROWTH AFTER 3 DAYS Anaerobic Blood Culture - Preliminary NO GROWTH AFTER 3 DAYS 11/17/20 12:52 Aerobic Blood Culture - Preliminary Blood - Venous NO GROWTH AFTER 3 DAYS Anaerobic Blood Culture - Preliminary NO GROWTH AFTER 3 DAYS Med Orders - Current: Current Medications Acetaminophen (Tylenol) 650 mg PO Q4H PRN PRN Reason: Pain (Mild 1-3)/fever Albuterol/Ipratropium (Duoneb 3.0-0.5 Mg/3 Ml) 3 ml NEB Q4HRRT PRN PRN Reason: Shortness Of Breath/wheezing Albuterol/Ipratropium (Combivent Respimat) 0 gm INH Q4H PRN PRN Reason: Dyspnea Dextrose/Water (Dextrose 50% In Water) 50 ml IV ASDIRECTED PRN PRN Reason: Hypoglycemia Folic Acid (Folic Acid) 1 mg PO DAILY [facility] Last Admin: 11/20/20 10:28 Dose: 1 mg Documented by: Furosemide (Lasix) 40 mg PO DAILY [facility] Last Admin: 11/20/20 10:28 Dose: 40 mg Documented by: Glucagon (Glucagen) 1 mg IM ASDIRECTED PRN PRN Reason: Hypoglycemia Guaifenesin/Dextromethorphan (Robitussin Dm) 10 ml PO Q4H PRN PRN Reason: Cough Levofloxacin/Dextrose 750 mg/ (Premix) 150 mls @ 100 mls/hr IV Q24H [facility] Last Admin: 11/20/20 12:57 Dose: 100 mls/hr Documented by: Cefepime HCl 2 gm/ Premix 50 mls @ 100 mls/hr IV Q8H [facility] Last Admin: 11/20/20 12:23 Dose: 100 mls/hr Documented by: Insulin Aspart (Novolog) 0 unit SUBCUT TIDAC [facility]; Protocol Last Admin: 11/20/20 12:30 Dose: Not Given Documented by: Levothyroxine Sodium (Levothyroxine) 150 mcg PO ACBRK [facility] Last Admin: 11/20/20 08:09 Dose: 150 mcg Documented by: Methylprednisolone Sodium Succinate (Solu-Medrol) 125 mg IVPUSH DAILY [facility] Last Admin: 11/20/20 10:28 Dose: 125 mg Documented by: Potassium Chloride (Klor-Con M20) 20 meq PO DAILY [facility] Last Admin: 11/20/20 10:28 Dose: 20 meq Documented by: Sodium Chloride (Saline Flush) 10 ml FLUSH ASDIRECTED PRN PRN Reason: Keep Vein Open Last Admin: 11/17/20 12:58 Dose: 10 ml Documented by: Sodium Chloride (Saline Flush) 2.5 ml FLUSH ASDIRECTED PRN PRN Reason: Keep Vein Open Last Admin: 11/17/20 12:58 Dose: 2.5 ml Documented by: Warfarin Sodium (Coumadin Ask) 1 each PO DAILY@1400 [facility] Last Admin: 11/20/20 13:00 Dose: Not Given Documented by: Discontinued Medications Enoxaparin Sodium (Lovenox) 40 mg SUBCUT Q12HR [facility] Last Admin: 11/18/20 20:46 Dose: 40 mg Documented by: Folic Acid (Folic Acid) 1 mg PO ASDIRECTED [facility] Furosemide (Lasix) 40 mg IVPUSH NOW ONE Stop: 11/17/20 17:21 Last Admin: 11/17/20 18:05 Dose: 40 mg Documented by: Vancomycin HCl 1 gm/ Sodium (Chloride) 250 mls @ 166 mls/hr IV ONETIME ONE Stop: 11/17/20 17:12 Last Admin: 11/17/20 15:48 Dose: 166 mls/hr Documented by: Ceftriaxone Sodium 1 gm/ (Sodium Chloride) 50 mls @ 100 mls/hr IV Q24H [facility] Azithromycin 500 mg/ Sodium (Chloride) 250 mls @ 250 mls/hr IV DAILY [facility] Last Admin: 11/17/20 18:52 Dose: 250 mls/hr Documented by: Ceftriaxone Sodium/Dextrose 1 (gm/ Premix) 50 mls @ 100 mls/hr IV Q24H [facility] Last Admin: 11/19/20 17:02 Dose: 100 mls/hr Documented by: Azithromycin 500 mg/ Sodium (Chloride) 250 mls @ 250 mls/hr IV DAILY@1900 [facility] Last Admin: 11/19/20 18:58 Dose: 250 mls/hr Documented by: Iopamidol (Isovue Multipack-370 (76%)) 100 ml IVPUSH ONETIME ONE Stop: 11/17/20 14:50 Last Admin: 11/17/20 14:52 Dose: 100 ml Documented by: Methylprednisolone Sodium Succinate (Solu-Medrol) 125 mg IVPUSH DAILY [facility] Warfarin Sodium (Coumadin) 7.5 mg PO ONETIME ONE Stop: 11/17/20 18:31 Last Admin: 11/17/20 18:58 Dose: 7.5 mg Documented by: Warfarin Sodium (Coumadin) 5 mg PO 11/18/20@1400 [facility] Stop: 11/18/20 14:01 Last Admin: 11/18/20 15:00 Dose: 5 mg Documented by: Warfarin Sodium (Coumadin) 5 mg PO 11/18/20@1400 [facility] Stop: 11/18/20 14:01 Last Admin: 11/18/20 15:00 Dose: Not Given Documented by: Warfarin Sodium (Coumadin) 2 mg PO 11/19/20@1400 [facility] Stop: 11/19/20 14:01 Last Admin: 11/19/20 13:48 Dose: 2 mg Documented by: - Exam Quality Assessment: Supplemental Oxygen (On heated high flow), DVT Prophylaxis (On warfarin) General: Alert, Oriented, Cooperative, No Acute Distress HEENT: Pupils Equal, Pupils Reactive, EOMI, Mucous Membr. Moist/[place]: Supple, No JVD. No: Lymphadenopathy Lungs: Rales, Rhonchi Cardiovascular: Regular Rate, Regular Rhythm GI/Abdominal Exam: Normal Bowel Sounds, Soft, Non-Tender, No Distention, No Abnormal Bruit, No Mass Extremities: Normal Inspection, Normal Range of Motion, Non-Tender, No Pedal Edema, Normal Capillary Refill Peripheral Pulses: 2+: Radial (L), Radial (R), Dorsalis Pedis (L), Dorsalis Pedis (R) Skin: Warm, Dry, Intact Neurological: No New Focal Deficit Psy/Mental Status: Alert, Normal Affect, Normal Mood Sepsis Event Note - Evaluation Sepsis Screening Result: No Definite Risk - Focused Exam Vital Signs: Vital Signs Temp Pulse Resp BP BP Pulse Ox 11/20/20 16:32 97.7 F 72 20 108/55 L 93 L 11/20/20 12:31 97.7 F 73 18 130/61 92 L 11/20/20 08:30 97.6 F 68 20 108/57 L 92 L - Problem List Review Problem List Initiated/Reviewed/Updated: Yes - My Orders Last 24 Hours: My Active Orders 11/21/20 05:11 CBC WITH AUTO DIFF [HEME] AM COMPREHENSIVE METABOLIC PN,CMP [CHEM] AM MAGNESIUM [CHEM] AM 11/22/20 05:11 CBC WITH AUTO DIFF [HEME] AM COMPREHENSIVE METABOLIC PN,CMP [CHEM] AM MAGNESIUM [CHEM] AM - Plan Plan:: Patient is an 80-year-old gentleman admitted for atypical pneumonia and pulmonary fibrosis. 1. Atypical pneumonia: Covid negative, repeat test yesterday Chest x-ray showed diffuse interstitial opacities throughout Patient remains afebrile Increased leukocytosis 23.6 today likely secondary to use of steroids for pulmonary fibrosis, will continue to trend daily a.m. CBC Provide supplemental oxygen per oxygen requirements, requiring more oxygen today with a higher heated high flow setting, We will get sputum culture and consider changing antibiotics; started on Levaquin and cefepime today Tylenol as needed for fever Solu-Medrol for pulmonary fibrosis No growth on blood cultures DuoNebs every 4 hours 2. Has medical history of recurrent DVTs: Supratherapeutic therapeutic INR today of 4.4, goal of 2-3 to be maintained, pharmacy to dose Coumadin accordingly. We will hold warfarin today 3. Hyperglycemia: improved, 141 today, no history of diabetes, will place patient on sliding scale insulin since he is using steroids which could be elevating his sugars 4. Past medical history of hypothyroidism, fluid retention therefore on Lasix, resumed all home medications
[2020-11-21] MEDS: Cefepime 2 GM in Premix Bag 1 BAG IV SCH ×3 (03:35→18:42)
[2020-11-21 06:15] LABS: BLOOD UREA NITROGEN,BUN 30 mg/dL (7.0-18.0); CARBON DIOXIDE,CO2 27.5 mmol/L (21.0-32.0); CHLORIDE,CL 103 mmol/L (98-107); GLUCOSE RANDOM 136 mg/dL (74-106); POTASSIUM,K 4.6 mmol/L (3.5-5.1); SODIUM,NA 137 mmol/L (136-148)
[2020-11-21] MEDS: Levothyroxine 150 MCG Tab PO SCH (06:59)
[2020-11-21] MEDS: Insulin Aspart 100 Units/ML 3 ML Pen SUBCUT SCH ×3 (07:31→17:20)
[2020-11-21] MEDS: Furosemide 40 MG Tab PO SCH (09:10)
[2020-11-21] MEDS: Potassium Chloride 20 MEQ Tab.ER PO SCH (09:10)
[2020-11-21] MEDS: methylPREDNISolone Sodium Succinate 125 MG/2 ML SDV IVPUSH SCH (09:10)
[2020-11-21] MEDS: Folic Acid 1 MG Tab PO SCH (09:10)
[2020-11-21] MEDS: Levofloxacin/Dextrose 5%-Water 750 MG in Premix Bag 1 BAG IV SCH (12:48)
--- NOTE | 2020-11-21 17:28 | PCM.PN ---
- General Info Date of Service: 11/21/20 Subjective Update: 80-year-old gentleman admitted for atypical pneumonia and pulmonary fibrosis requiring heated high flow. There were no overnight events, this morning states he feels no significant change. Denies any fever, chills, chest pain, shortness of breath, pain or swelling in his lower extremity. Functional Status: Reports: Tolerating Diet, Incentive Spirometry. Denies: New Symptoms - Review of Systems General: Reports: No Symptoms HEENT: Reports: No Symptoms Pulmonary: Reports: Shortness of Breath (Requiring heated high flow), Cough, Sputum Cardiovascular: Reports: No Symptoms Gastrointestinal: Reports: No Symptoms Genitourinary: Reports: No Symptoms Musculoskeletal: Reports: No Symptoms Skin: Reports: No Symptoms Neurological: Reports: No Symptoms Psychiatric: Reports: No Symptoms - Patient Data Vitals - Most Recent: Last Vital Signs Temp 97.4 F 11/21/20 15:52 Pulse 74 11/21/20 15:52 Resp 18 11/21/20 15:52 BP 125/57 L 11/21/20 15:52 Pulse Ox 94 L 11/21/20 15:52 Weight - Most Recent: 262 lb 6.4 oz I&O - Last 24 Hours: Intake & Output 11/21/20 11/21/20 11/21/20 06:59 14:59 22:59 Intake Total 800 1160 Output Total 850 1000 Balance -50 160 Lab Results Last 24 Hours: Laboratory Results - last 24 hr 11/20/20 11/21/20 11/21/20 Range/Units 17:42 05:21 05:21 WBC 19.47 H (4.0-11.0) K/uL RBC 4.30 L (4.50-5.90) M/uL Hgb 13.2 (13.0-17.0) g/dL Hct 41.4 (38.0-50.0) % MCV 96.3 (80.0-98.0) fL MCH 30.7 (27.0-32.0) pg MCHC 31.9 (31.0-37.0) g/dL RDW Std Deviation 51.5 (28.0-62.0) fl RDW Coeff of Sunny 15 (11.0-15.0) % Plt Count 217 (150-400) K/uL MPV 12.10 H (7.40-12.00) fL Neut % (Auto) 91.8 H (48.0-80.0) % Lymph % (Auto) 3.5 L (16.0-40.0) % Swain % (Auto) 4.4 (0.0-15.0) % Eos % (Auto) 0.2 (0.0-7.0) % Baso % (Auto) 0.1 (0.0-1.5) % Neut # (Auto) 17.9 H (1.4-5.7) K/uL Lymph # (Auto) 0.7 (0.6-2.4) K/uL Swain # (Auto) 0.9 H (0.0-0.8) K/uL Eos # (Auto) 0.0 (0.0-0.7) K/uL Baso # (Auto) 0.0 (0.0-0.1) K/uL Nucleated RBC % 0.0 /100WBC Nucleated RBCs # 0 K/uL INR 4.55 Sodium (136-148) mmol/L Potassium (3.5-5.1) mmol/L Chloride (98-107) mmol/L Carbon Dioxide (21.0-32.0) mmol/L BUN (7.0-18.0) mg/dL Creatinine (0.8-1.3) mg/dL Est Cr Clr Drug Dosing mL/min Estimated GFR (MDRD) ml/min Glucose (74-106) mg/dL POC Glucose 165 H (60-110) mg/dL Calcium (8.5-10.1) mg/dL Magnesium (1.8-2.4) mg/dL Total Bilirubin (0.2-1.0) mg/dL AST (15-37) IU/L ALT (14-63) IU/L Alkaline Phosphatase (46-116) U/L B-Natriuretic Peptide (<100) PG/ML Total Protein (6.4-8.2) g/dL Albumin (3.4-5.0) g/dL Globulin (2.6-4.0) g/dL Albumin/Globulin Ratio (0.9-1.6) 11/21/20 11/21/20 11/21/20 Range/Units 05:21 05:21 06:58 WBC (4.0-11.0) K/uL RBC (4.50-5.90) M/uL Hgb (13.0-17.0) g/dL Hct (38.0-50.0) % MCV (80.0-98.0) fL MCH (27.0-32.0) pg MCHC (31.0-37.0) g/dL RDW Std Deviation (28.0-62.0) fl RDW Coeff of Sunny (11.0-15.0) % Plt Count (150-400) K/uL MPV (7.40-12.00) fL Neut % (Auto) (48.0-80.0) % Lymph % (Auto) (16.0-40.0) % Swain % (Auto) (0.0-15.0) % Eos % (Auto) (0.0-7.0) % Baso % (Auto) (0.0-1.5) % Neut # (Auto) (1.4-5.7) K/uL Lymph # (Auto) (0.6-2.4) K/uL Swain # (Auto) (0.0-0.8) K/uL Eos # (Auto) (0.0-0.7) K/uL Baso # (Auto) (0.0-0.1) K/uL Nucleated RBC % /100WBC Nucleated RBCs # K/uL INR Sodium 137 (136-148) mmol/L Potassium 4.6 (3.5-5.1) mmol/L Chloride 103 (98-107) mmol/L Carbon Dioxide 27.5 (21.0-32.0) mmol/L BUN 30 H (7.0-18.0) mg/dL Creatinine 1.1 (0.8-1.3) mg/dL Est Cr Clr Drug Dosing 64.02 mL/min Estimated GFR (MDRD) > 60.0 ml/min Glucose 136 H (74-106) mg/dL POC Glucose 132 H (60-110) mg/dL Calcium 8.5 (8.5-10.1) mg/dL Magnesium 2.3 (1.8-2.4) mg/dL Total Bilirubin 0.7 (0.2-1.0) mg/dL AST 46 H (15-37) IU/L ALT 88 H (14-63) IU/L Alkaline Phosphatase 72 (46-116) U/L B-Natriuretic Peptide 159 H (<100) PG/ML Total Protein 5.3 L (6.4-8.2) g/dL Albumin 2.5 L (3.4-5.0) g/dL Globulin 2.8 (2.6-4.0) g/dL Albumin/Globulin Ratio 0.9 (0.9-1.6) 11/21/20 Range/Units 12:00 WBC (4.0-11.0) K/uL RBC (4.50-5.90) M/uL Hgb (13.0-17.0) g/dL Hct (38.0-50.0) % MCV (80.0-98.0) fL MCH (27.0-32.0) pg MCHC (31.0-37.0) g/dL RDW Std Deviation (28.0-62.0) fl RDW Coeff of Sunny (11.0-15.0) % Plt Count (150-400) K/uL MPV (7.40-12.00) fL Neut % (Auto) (48.0-80.0) % Lymph % (Auto) (16.0-40.0) % Swain % (Auto) (0.0-15.0) % Eos % (Auto) (0.0-7.0) % Baso % (Auto) (0.0-1.5) % Neut # (Auto) (1.4-5.7) K/uL Lymph # (Auto) (0.6-2.4) K/uL Swain # (Auto) (0.0-0.8) K/uL Eos # (Auto) (0.0-0.7) K/uL Baso # (Auto) (0.0-0.1) K/uL Nucleated RBC % /100WBC Nucleated RBCs # K/uL INR Sodium (136-148) mmol/L Potassium (3.5-5.1) mmol/L Chloride (98-107) mmol/L Carbon Dioxide (21.0-32.0) mmol/L BUN (7.0-18.0) mg/dL Creatinine (0.8-1.3) mg/dL Est Cr Clr Drug Dosing mL/min Estimated GFR (MDRD) ml/min Glucose (74-106) mg/dL POC Glucose 185 H (60-110) mg/dL Calcium (8.5-10.1) mg/dL Magnesium (1.8-2.4) mg/dL Total Bilirubin (0.2-1.0) mg/dL AST (15-37) IU/L ALT (14-63) IU/L Alkaline Phosphatase (46-116) U/L B-Natriuretic Peptide (<100) PG/ML Total Protein (6.4-8.2) g/dL Albumin (3.4-5.0) g/dL Globulin (2.6-4.0) g/dL Albumin/Globulin Ratio (0.9-1.6) Tom Results Last 24 Hours: Microbiology 11/17/20 12:52 Aerobic Blood Culture - Preliminary Blood - Venous - Lab Draw NO GROWTH AFTER 4 DAYS Anaerobic Blood Culture - Preliminary NO GROWTH AFTER 4 DAYS 11/17/20 12:52 Aerobic Blood Culture - Preliminary Blood - Venous NO GROWTH AFTER 4 DAYS Anaerobic Blood Culture - Preliminary NO GROWTH AFTER 4 DAYS 11/20/20 14:40 Gram Stain - Final Sputum - Expectorated Med Orders - Current: Current Medications Acetaminophen (Tylenol) 650 mg PO Q4H PRN PRN Reason: Pain (Mild 1-3)/fever Albuterol/Ipratropium (Duoneb 3.0-0.5 Mg/3 Ml) 3 ml NEB Q4HRRT PRN PRN Reason: Shortness Of Breath/wheezing Albuterol/Ipratropium (Combivent Respimat) 0 gm INH Q4H PRN PRN Reason: Dyspnea Dextrose/Water (Dextrose 50% In Water) 50 ml IV ASDIRECTED PRN PRN Reason: Hypoglycemia Folic Acid (Folic Acid) 1 mg PO DAILY [facility] Last Admin: 11/21/20 09:10 Dose: 1 mg Documented by: Furosemide (Lasix) 40 mg PO DAILY [facility] Last Admin: 11/21/20 09:10 Dose: 40 mg Documented by: Glucagon (Glucagen) 1 mg IM ASDIRECTED PRN PRN Reason: Hypoglycemia Guaifenesin/Dextromethorphan (Robitussin Dm) 10 ml PO Q4H PRN PRN Reason: Cough Levofloxacin/Dextrose 750 mg/ (Premix) 150 mls @ 100 mls/hr IV Q24H [facility] Last Admin: 11/21/20 12:48 Dose: 100 mls/hr Documented by: Cefepime HCl 2 gm/ Premix 50 mls @ 100 mls/hr IV Q8H [facility] Last Admin: 11/21/20 12:06 Dose: 100 mls/hr Documented by: Insulin Aspart (Novolog) 0 unit SUBCUT TIDAC [facility]; Protocol Last Admin: 11/21/20 12:03 Dose: 1 unit Documented by: Levothyroxine Sodium (Levothyroxine) 150 mcg PO ACBRK [facility] Last Admin: 11/21/20 06:59 Dose: 150 mcg Documented by: Methylprednisolone Sodium Succinate (Solu-Medrol) 125 mg IVPUSH DAILY [facility] Last Admin: 11/21/20 09:10 Dose: 125 mg Documented by: Potassium Chloride (Klor-Con M20) 20 meq PO DAILY [facility] Last Admin: 11/21/20 09:10 Dose: 20 meq Documented by: Sodium Chloride (Saline Flush) 10 ml FLUSH ASDIRECTED PRN PRN Reason: Keep Vein Open Last Admin: 11/17/20 12:58 Dose: 10 ml Documented by: Sodium Chloride (Saline Flush) 2.5 ml FLUSH ASDIRECTED PRN PRN Reason: Keep Vein Open Last Admin: 11/17/20 12:58 Dose: 2.5 ml Documented by: Warfarin Sodium (Coumadin Ask) 1 each PO DAILY@1400 [facility] Last Admin: 11/21/20 14:34 Dose: Not Given Documented by: Discontinued Medications Enoxaparin Sodium (Lovenox) 40 mg SUBCUT Q12HR [facility] Last Admin: 11/18/20 20:46 Dose: 40 mg Documented by: Folic Acid (Folic Acid) 1 mg PO ASDIRECTED [facility] Furosemide (Lasix) 40 mg IVPUSH NOW ONE Stop: 11/17/20 17:21 Last Admin: 11/17/20 18:05 Dose: 40 mg Documented by: Vancomycin HCl 1 gm/ Sodium (Chloride) 250 mls @ 166 mls/hr IV ONETIME ONE Stop: 11/17/20 17:12 Last Admin: 11/17/20 15:48 Dose: 166 mls/hr Documented by: Ceftriaxone Sodium 1 gm/ (Sodium Chloride) 50 mls @ 100 mls/hr IV Q24H [facility] Azithromycin 500 mg/ Sodium (Chloride) 250 mls @ 250 mls/hr IV DAILY [facility] Last Admin: 11/17/20 18:52 Dose: 250 mls/hr Documented by: Ceftriaxone Sodium/Dextrose 1 (gm/ Premix) 50 mls @ 100 mls/hr IV Q24H [facility] Last Admin: 11/19/20 17:02 Dose: 100 mls/hr Documented by: Azithromycin 500 mg/ Sodium (Chloride) 250 mls @ 250 mls/hr IV DAILY@1900 [facility] Last Admin: 11/19/20 18:58 Dose: 250 mls/hr Documented by: Iopamidol (Isovue Multipack-370 (76%)) 100 ml IVPUSH ONETIME ONE Stop: 11/17/20 14:50 Last Admin: 11/17/20 14:52 Dose: 100 ml Documented by: Methylprednisolone Sodium Succinate (Solu-Medrol) 125 mg IVPUSH DAILY [facility] Warfarin Sodium (Coumadin) 7.5 mg PO ONETIME ONE Stop: 11/17/20 18:31 Last Admin: 11/17/20 18:58 Dose: 7.5 mg Documented by: Warfarin Sodium (Coumadin) 5 mg PO 11/18/20@1400 [facility] Stop: 11/18/20 14:01 Last Admin: 11/18/20 15:00 Dose: 5 mg Documented by: Warfarin Sodium (Coumadin) 5 mg PO 11/18/20@1400 [facility] Stop: 11/18/20 14:01 Last Admin: 11/18/20 15:00 Dose: Not Given Documented by: Warfarin Sodium (Coumadin) 2 mg PO 11/19/20@1400 [facility] Stop: 11/19/20 14:01 Last Admin: 11/19/20 13:48 Dose: 2 mg Documented by: - Exam Quality Assessment: Supplemental Oxygen, DVT Prophylaxis General: Alert, Oriented, Cooperative, No Acute Distress HEENT: Pupils Equal, Pupils Reactive, EOMI, Mucous Membr. Moist/[place] Neck: Supple, Trachea Midline, No JVD Lungs: Normal Respiratory Effort, Crackles (Left lower lobe) Cardiovascular: Regular Rate, Regular Rhythm GI/Abdominal Exam: Normal Bowel Sounds, Soft, Non-Tender, No Organomegaly, No Distention, No Abnormal Bruit, No Mass, Pelvis Stable Extremities: Normal Inspection, Normal Range of Motion, Non-Tender, No Pedal Edema, Normal Capillary Refill Peripheral Pulses: 2+: Radial (L), Radial (R), Dorsalis Pedis (L), Dorsalis Pedis (R) Skin: Warm, Dry, Intact Neurological: No New Focal Deficit Psy/Mental Status: Alert, Normal Affect, Normal Mood Sepsis Event Note - Evaluation Sepsis Screening Result: No Definite Risk - Focused Exam Vital Signs: Vital Signs Temp Pulse Resp BP Pulse Ox Pulse Ox 11/21/20 15:52 97.4 F 74 18 125/57 L 94 L 11/21/20 12:00 97.9 F 75 20 123/60 91 L 11/21/20 08:58 97.6 F 74 20 131/60 90 L 11/21/20 06:00 93 L - Problem List Review Problem List Initiated/Reviewed/Updated: Yes - My Orders Last 24 Hours: My Active Orders 11/22/20 05:11 CBC WITH AUTO DIFF [HEME] AM COMPREHENSIVE METABOLIC PN,CMP [CHEM] AM MAGNESIUM [CHEM] AM - Plan Plan:: Patient is an 80-year-old gentleman admitted for atypical pneumonia and pulmonary fibrosis. 1. Atypical pneumonia: Covid negative, repeat test yesterday Chest x-ray showed diffuse interstitial opacities throughout Patient remains afebrile Increased leukocytosis 23.6 today likely secondary to use of steroids for pulmonary fibrosis, will continue to trend daily a.m. CBC Provide supplemental oxygen per oxygen requirements, with goal of maintaining O2 saturations between 90 and 92% requiring more oxygen today with a higher heated high flow setting, We will get sputum culture and consider changing antibiotics; started on Levaquin and cefepime today Tylenol as needed for fever Solu-Medrol for pulmonary fibrosis No growth on blood cultures DuoNebs every 4 hours Consulted shell molding roller blast operator Dr. Casas at [facility] in [place]. Had no new recommendations agreed with our current plan, suggested observing and continue to treat the patient for now. Did not feel he would benefit from transfer. However felt if his status changes and we feel he need to transfer we may contact and try to facilitate at that time. 2. Has medical history of recurrent DVTs: Supratherapeutic therapeutic INR today of 4. 55, goal of 2-3 to be maintained, pharmacy to dose Coumadin accordingly. We will hold warfarin again today 3. Hyperglycemia: improved, 136 today, no history of diabetes, will place patient on sliding scale insulin since he is using steroids which could be elevating his sugars 4. Past medical history of hypothyroidism, fluid retention therefore on Lasix, resumed all home medications
[2020-11-22] MEDS: Cefepime 2 GM in Premix Bag 1 BAG IV SCH ×3 (02:19→19:09)
[2020-11-22] MEDS: Levothyroxine 150 MCG Tab PO SCH (06:40)
[2020-11-22 06:52] LABS: BLOOD UREA NITROGEN,BUN 28 mg/dL (7.0-18.0); CARBON DIOXIDE,CO2 30.9 mmol/L (21.0-32.0); CHLORIDE,CL 104 mmol/L (98-107); GLUCOSE RANDOM 132 mg/dL (74-106); POTASSIUM,K 4.6 mmol/L (3.5-5.1); SODIUM,NA 139 mmol/L (136-148)
[2020-11-22] MEDS: Insulin Aspart 100 Units/ML 3 ML Pen SUBCUT SCH ×3 (08:54→18:05)
[2020-11-22] MEDS: Folic Acid 1 MG Tab PO SCH (09:20)
[2020-11-22] MEDS: Potassium Chloride 20 MEQ Tab.ER PO SCH (09:20)
[2020-11-22] MEDS: Furosemide 40 MG Tab PO SCH (09:20)
[2020-11-22] MEDS: methylPREDNISolone Sodium Succinate 125 MG/2 ML SDV IVPUSH SCH (09:20)
[2020-11-22] MEDS: Levofloxacin/Dextrose 5%-Water 750 MG in Premix Bag 1 BAG IV SCH (11:27)
[2020-11-22] MEDS ORDERED: Warfarin 2.5 MG Tab PO ONE (14:00)
--- NOTE | 2020-11-22 15:08 | PCM.PN ---
- General Info Date of Service: 11/22/20 - Review of Systems Systems Review Comment:: feeling a little bit better, O2 drops with exertion - Patient Data Vitals - Most Recent: Last Vital Signs Temp 36.4 C 11/22/20 11:33 Pulse 74 11/22/20 11:33 Resp 20 11/22/20 11:33 BP 131/63 11/22/20 11:33 Pulse Ox 94 L 11/22/20 11:33 Weight - Most Recent: 119.023 kg I&O - Last 24 Hours: Intake & Output 11/22/20 11/22/20 11/22/20 06:59 14:59 22:59 Intake Total 800 Output Total 750 Balance 50 Lab Results Last 24 Hours: Laboratory Results - last 24 hr 11/21/20 11/22/20 11/22/20 Range/Units 17:20 06:10 06:10 WBC 17.83 H (4.0-11.0) K/uL RBC 4.30 L (4.50-5.90) M/uL Hgb 13.7 (13.0-17.0) g/dL Hct 41.5 (38.0-50.0) % MCV 96.5 (80.0-98.0) fL MCH 31.9 (27.0-32.0) pg MCHC 33.0 (31.0-37.0) g/dL RDW Std Deviation 51.4 (28.0-62.0) fl RDW Coeff of Sunny 15 (11.0-15.0) % Plt Count 213 (150-400) K/uL MPV 11.80 (7.40-12.00) fL Neut % (Auto) 88.3 H (48.0-80.0) % Lymph % (Auto) 5.6 L (16.0-40.0) % Clinch % (Auto) 5.8 (0.0-15.0) % Eos % (Auto) 0.2 (0.0-7.0) % Baso % (Auto) 0.1 (0.0-1.5) % Neut # (Auto) 15.8 H (1.4-5.7) K/uL Lymph # (Auto) 1.0 (0.6-2.4) K/uL Clinch # (Auto) 1.0 H (0.0-0.8) K/uL Eos # (Auto) 0.0 (0.0-0.7) K/uL Baso # (Auto) 0.0 (0.0-0.1) K/uL Nucleated RBC % 0.0 /100WBC Nucleated RBCs # 0 K/uL INR Sodium 139 (136-148) mmol/L Potassium 4.6 (3.5-5.1) mmol/L Chloride 104 (98-107) mmol/L Carbon Dioxide 30.9 (21.0-32.0) mmol/L BUN 28 H (7.0-18.0) mg/dL Creatinine 1.0 (0.8-1.3) mg/dL Est Cr Clr Drug Dosing 70.42 mL/min Estimated GFR (MDRD) > 60.0 ml/min Glucose 132 H (74-106) mg/dL POC Glucose 146 H (60-110) mg/dL Calcium 8.5 (8.5-10.1) mg/dL Magnesium 2.4 (1.8-2.4) mg/dL Total Bilirubin 0.7 (0.2-1.0) mg/dL AST 29 (15-37) IU/L ALT 86 H (14-63) IU/L Alkaline Phosphatase 73 (46-116) U/L Total Protein 5.2 L (6.4-8.2) g/dL Albumin 2.5 L (3.4-5.0) g/dL Globulin 2.7 (2.6-4.0) g/dL Albumin/Globulin Ratio 0.9 (0.9-1.6) 11/22/20 11/22/20 11/22/20 Range/Units 07:52 09:32 13:22 WBC (4.0-11.0) K/uL RBC (4.50-5.90) M/uL Hgb (13.0-17.0) g/dL Hct (38.0-50.0) % MCV (80.0-98.0) fL MCH (27.0-32.0) pg MCHC (31.0-37.0) g/dL RDW Std Deviation (28.0-62.0) fl RDW Coeff of Sunny (11.0-15.0) % Plt Count (150-400) K/uL MPV (7.40-12.00) fL Neut % (Auto) (48.0-80.0) % Lymph % (Auto) (16.0-40.0) % Clinch % (Auto) (0.0-15.0) % Eos % (Auto) (0.0-7.0) % Baso % (Auto) (0.0-1.5) % Neut # (Auto) (1.4-5.7) K/uL Lymph # (Auto) (0.6-2.4) K/uL Clinch # (Auto) (0.0-0.8) K/uL Eos # (Auto) (0.0-0.7) K/uL Baso # (Auto) (0.0-0.1) K/uL Nucleated RBC % /100WBC Nucleated RBCs # K/uL INR 3.26 Sodium (136-148) mmol/L Potassium (3.5-5.1) mmol/L Chloride (98-107) mmol/L Carbon Dioxide (21.0-32.0) mmol/L BUN (7.0-18.0) mg/dL Creatinine (0.8-1.3) mg/dL Est Cr Clr Drug Dosing mL/min Estimated GFR (MDRD) ml/min Glucose (74-106) mg/dL POC Glucose 122 H 129 H (60-110) mg/dL Calcium (8.5-10.1) mg/dL Magnesium (1.8-2.4) mg/dL Total Bilirubin (0.2-1.0) mg/dL AST (15-37) IU/L ALT (14-63) IU/L Alkaline Phosphatase (46-116) U/L Total Protein (6.4-8.2) g/dL Albumin (3.4-5.0) g/dL Globulin (2.6-4.0) g/dL Albumin/Globulin Ratio (0.9-1.6) Tom Results Last 24 Hours: Microbiology 11/17/20 12:52 Aerobic Blood Culture - Final Blood - Venous - Lab Draw NO GROWTH AFTER 5 DAYS Anaerobic Blood Culture - Final NO GROWTH AFTER 5 DAYS 11/17/20 12:52 Aerobic Blood Culture - Final Blood - Venous NO GROWTH AFTER 5 DAYS Anaerobic Blood Culture - Final NO GROWTH AFTER 5 DAYS 11/20/20 14:40 Gram Stain - Final Sputum - Expectorated Sputum Culture - Final Yeast Normal Respiratory Aretha Med Orders - Current: Current Medications Acetaminophen (Tylenol) 650 mg PO Q4H PRN PRN Reason: Pain (Mild 1-3)/fever Albuterol/Ipratropium (Duoneb 3.0-0.5 Mg/3 Ml) 3 ml NEB Q4HRRT PRN PRN Reason: Shortness Of Breath/wheezing Albuterol/Ipratropium (Combivent Respimat) 0 gm INH Q4H PRN PRN Reason: Dyspnea Dextrose/Water (Dextrose 50% In Water) 50 ml IV ASDIRECTED PRN PRN Reason: Hypoglycemia Folic Acid (Folic Acid) 1 mg PO DAILY [facility] Last Admin: 11/22/20 09:20 Dose: 1 mg Documented by: Furosemide (Lasix) 40 mg PO DAILY [facility] Last Admin: 11/22/20 09:20 Dose: 40 mg Documented by: Glucagon (Glucagen) 1 mg IM ASDIRECTED PRN PRN Reason: Hypoglycemia Guaifenesin/Dextromethorphan (Robitussin Dm) 10 ml PO Q4H PRN PRN Reason: Cough Levofloxacin/Dextrose 750 mg/ (Premix) 150 mls @ 100 mls/hr IV Q24H [facility] Last Admin: 11/22/20 11:27 Dose: 100 mls/hr Documented by: Cefepime HCl 2 gm/ Premix 50 mls @ 100 mls/hr IV Q8H [facility] Last Admin: 11/22/20 10:52 Dose: 100 mls/hr Documented by: Insulin Aspart (Novolog) 0 unit SUBCUT TIDAC [facility]; Protocol Last Admin: 11/22/20 13:28 Dose: Not Given Documented by: Levothyroxine Sodium (Levothyroxine) 150 mcg PO ACBRK [facility] Last Admin: 11/22/20 06:40 Dose: 150 mcg Documented by: Methylprednisolone Sodium Succinate (Solu-Medrol) 125 mg IVPUSH DAILY [facility] Last Admin: 11/22/20 09:20 Dose: 125 mg Documented by: Potassium Chloride (Klor-Con M20) 20 meq PO DAILY [facility] Last Admin: 11/22/20 09:20 Dose: 20 meq Documented by: Sodium Chloride (Saline Flush) 10 ml FLUSH ASDIRECTED PRN PRN Reason: Keep Vein Open Last Admin: 11/17/20 12:58 Dose: 10 ml Documented by: Sodium Chloride (Saline Flush) 2.5 ml FLUSH ASDIRECTED PRN PRN Reason: Keep Vein Open Last Admin: 11/17/20 12:58 Dose: 2.5 ml Documented by: Warfarin Sodium (Coumadin Ask) 1 each PO DAILY@1400 [facility] Last Admin: 11/22/20 14:18 Dose: Not Given Documented by: Discontinued Medications Enoxaparin Sodium (Lovenox) 40 mg SUBCUT Q12HR [facility] Last Admin: 11/18/20 20:46 Dose: 40 mg Documented by: Folic Acid (Folic Acid) 1 mg PO ASDIRECTED [facility] Furosemide (Lasix) 40 mg IVPUSH NOW ONE Stop: 11/17/20 17:21 Last Admin: 11/17/20 18:05 Dose: 40 mg Documented by: Vancomycin HCl 1 gm/ Sodium (Chloride) 250 mls @ 166 mls/hr IV ONETIME ONE Stop: 11/17/20 17:12 Last Admin: 11/17/20 15:48 Dose: 166 mls/hr Documented by: Ceftriaxone Sodium 1 gm/ (Sodium Chloride) 50 mls @ 100 mls/hr IV Q24H [facility] Azithromycin 500 mg/ Sodium (Chloride) 250 mls @ 250 mls/hr IV DAILY [facility] Last Admin: 11/17/20 18:52 Dose: 250 mls/hr Documented by: Ceftriaxone Sodium/Dextrose 1 (gm/ Premix) 50 mls @ 100 mls/hr IV Q24H [facility] Last Admin: 11/19/20 17:02 Dose: 100 mls/hr Documented by: Azithromycin 500 mg/ Sodium (Chloride) 250 mls @ 250 mls/hr IV DAILY@1900 [facility] Last Admin: 11/19/20 18:58 Dose: 250 mls/hr Documented by: Iopamidol (Isovue Multipack-370 (76%)) 100 ml IVPUSH ONETIME ONE Stop: 11/17/20 14:50 Last Admin: 11/17/20 14:52 Dose: 100 ml Documented by: Methylprednisolone Sodium Succinate (Solu-Medrol) 125 mg IVPUSH DAILY [facility] Warfarin Sodium (Coumadin) 7.5 mg PO ONETIME ONE Stop: 11/17/20 18:31 Last Admin: 11/17/20 18:58 Dose: 7.5 mg Documented by: Warfarin Sodium (Coumadin) 5 mg PO 11/18/20@1400 [facility] Stop: 11/18/20 14:01 Last Admin: 11/18/20 15:00 Dose: 5 mg Documented by: Warfarin Sodium (Coumadin) 5 mg PO 11/18/20@1400 [facility] Stop: 11/18/20 14:01 Last Admin: 11/18/20 15:00 Dose: Not Given Documented by: Warfarin Sodium (Coumadin) 2 mg PO 11/19/20@1400 [facility] Stop: 11/19/20 14:01 Last Admin: 11/19/20 13:48 Dose: 2 mg Documented by: Warfarin Sodium (Coumadin) 2.5 mg PO DAILY@1400 [facility] Stop: 11/22/20 14:01 Last Admin: 11/22/20 13:57 Dose: 2.5 mg Documented by: - Exam General: Alert, Oriented Neck: Supple Lungs: Clear to Auscultation, Normal Respiratory Effort Cardiovascular: Regular Rate, Regular Rhythm GI/Abdominal Exam: Soft, Non-Tender, No Distention Extremities: Non-Tender, No Pedal Edema Skin: Warm, Dry, Intact Neurological: No New Focal Deficit Sepsis Event Note - Evaluation Sepsis Screening Result: No Definite Risk - Focused Exam Vital Signs: Vital Signs Temp Pulse Resp BP Pulse Ox 11/22/20 11:33 36.4 C 74 20 131/63 94 L 11/22/20 07:58 36.6 C 69 20 121/58 L 91 L 11/22/20 04:00 36.3 C 97 18 103/52 L 97 - Problem List Review Problem List Initiated/Reviewed/Updated: Yes - My Orders Last 24 Hours: My Active Orders 11/23/20 05:11 BASIC METABOLIC PANEL,BMP [CHEM] AM CBC WITH AUTO DIFF [HEME] AM - Plan Plan:: Patient is an 80-year-old gentleman admitted for atypical pneumonia and pulmonary fibrosis. 1. Atypical pneumonia: continue cefepime, Levaquin and Solumedrol 2. Has medical history of recurrent DVTs: Supratherapeutic therapeutic INR today of 3.2 3. Hyperglycemia: no history of diabetes, will place patient on sliding scale insulin since he is using steroids which could be elevating his sugars 4. Past medical history of hypothyroidism, fluid retention therefore on Lasix, resumed all home medications
[2020-11-23] MEDS: Cefepime 2 GM in Premix Bag 1 BAG IV SCH ×3 (03:37→18:59)
[2020-11-23 06:55] LABS: BLOOD UREA NITROGEN,BUN 29 mg/dL (7.0-18.0); CARBON DIOXIDE,CO2 29.8 mmol/L (21.0-32.0); CHLORIDE,CL 103 mmol/L (98-107); GLUCOSE RANDOM 130 mg/dL (74-106); POTASSIUM,K 4.1 mmol/L (3.5-5.1); SODIUM,NA 138 mmol/L (136-148)
[2020-11-23] MEDS: Insulin Aspart 100 Units/ML 3 ML Pen SUBCUT SCH ×3 (07:15→18:53)
[2020-11-23] MEDS: Levothyroxine 150 MCG Tab PO SCH (09:01)
[2020-11-23] MEDS: Folic Acid 1 MG Tab PO SCH (09:02)
[2020-11-23] MEDS: Furosemide 40 MG Tab PO SCH (09:02)
[2020-11-23] MEDS: Potassium Chloride 20 MEQ Tab.ER PO SCH (09:02)
[2020-11-23] MEDS: methylPREDNISolone Sodium Succinate 125 MG/2 ML SDV IVPUSH SCH (09:02)
--- NOTE | 2020-11-23 09:40 | PCM.PN ---
- General Info Date of Service: 11/23/20 Subjective Update: 80-year-old gentleman admitted for atypical pneumonia and pulmonary fibrosis requiring heated high flow. There were no overnight events, this morning states he feels he is breathing a little better. Patient remains on 10 L heated high flow by nasal cannula this morning, denies any shortness of breath, chest pain, leg swelling. Functional Status: Reports: Tolerating Diet - Review of Systems General: Reports: No Symptoms HEENT: Reports: No Symptoms Pulmonary: Reports: Cough (Less frequent), Sputum (Reduced) Cardiovascular: Reports: No Symptoms Gastrointestinal: Reports: No Symptoms Genitourinary: Reports: No Symptoms Musculoskeletal: Reports: No Symptoms Skin: Reports: No Symptoms Neurological: Reports: No Symptoms Psychiatric: Reports: No Symptoms - Patient Data Vitals - Most Recent: Last Vital Signs Temp 98 F 11/23/20 08:51 Pulse 68 11/23/20 08:51 Resp 16 11/23/20 08:51 BP 100/59 L 11/23/20 08:51 Pulse Ox 90 L 11/23/20 08:51 Weight - Most Recent: 262 lb 6.4 oz I&O - Last 24 Hours: Intake & Output 11/22/20 11/23/20 11/23/20 22:59 06:59 14:59 Intake Total 930 1000 Output Total 700 750 Balance 230 250 Lab Results Last 24 Hours: Laboratory Results - last 24 hr 11/22/20 11/22/20 11/22/20 Range/Units 07:52 09:32 13:22 WBC (4.0-11.0) K/uL RBC (4.50-5.90) M/uL Hgb (13.0-17.0) g/dL Hct (38.0-50.0) % MCV (80.0-98.0) fL MCH (27.0-32.0) pg MCHC (31.0-37.0) g/dL RDW Std Deviation (28.0-62.0) fl RDW Coeff of Sunny (11.0-15.0) % Plt Count (150-400) K/uL MPV (7.40-12.00) fL Neut % (Auto) (48.0-80.0) % Lymph % (Auto) (16.0-40.0) % [place] % (Auto) (0.0-15.0) % Eos % (Auto) (0.0-7.0) % Baso % (Auto) (0.0-1.5) % Neut # (Auto) (1.4-5.7) K/uL Lymph # (Auto) (0.6-2.4) K/uL [place] # (Auto) (0.0-0.8) K/uL Eos # (Auto) (0.0-0.7) K/uL Baso # (Auto) (0.0-0.1) K/uL Nucleated RBC % /100WBC Nucleated RBCs # K/uL INR 3.26 Sodium (136-148) mmol/L Potassium (3.5-5.1) mmol/L Chloride (98-107) mmol/L Carbon Dioxide (21.0-32.0) mmol/L BUN (7.0-18.0) mg/dL Creatinine (0.8-1.3) mg/dL Est Cr Clr Drug Dosing mL/min Estimated GFR (MDRD) ml/min Glucose (74-106) mg/dL POC Glucose 122 H 129 H (60-110) mg/dL Calcium (8.5-10.1) mg/dL 11/22/20 11/23/20 11/23/20 Range/Units 17:51 05:43 05:43 WBC 17.89 H (4.0-11.0) K/uL RBC 4.37 L (4.50-5.90) M/uL Hgb 13.3 (13.0-17.0) g/dL Hct 42.1 (38.0-50.0) % MCV 96.3 (80.0-98.0) fL MCH 30.4 (27.0-32.0) pg MCHC 31.6 (31.0-37.0) g/dL RDW Std Deviation 51.7 (28.0-62.0) fl RDW Coeff of Sunny 15 (11.0-15.0) % Plt Count 227 (150-400) K/uL MPV 12.40 H (7.40-12.00) fL Neut % (Auto) 86.4 H (48.0-80.0) % Lymph % (Auto) 5.4 L (16.0-40.0) % [place] % (Auto) 7.9 (0.0-15.0) % Eos % (Auto) 0.2 (0.0-7.0) % Baso % (Auto) 0.1 (0.0-1.5) % Neut # (Auto) 15.5 H (1.4-5.7) K/uL Lymph # (Auto) 1.0 (0.6-2.4) K/uL [place] # (Auto) 1.4 H (0.0-0.8) K/uL Eos # (Auto) 0.0 (0.0-0.7) K/uL Baso # (Auto) 0.0 (0.0-0.1) K/uL Nucleated RBC % 0.0 /100WBC Nucleated RBCs # 0 K/uL INR Sodium 138 (136-148) mmol/L Potassium 4.1 (3.5-5.1) mmol/L Chloride 103 (98-107) mmol/L Carbon Dioxide 29.8 (21.0-32.0) mmol/L BUN 29 H (7.0-18.0) mg/dL Creatinine 1.1 (0.8-1.3) mg/dL Est Cr Clr Drug Dosing 64.02 mL/min Estimated GFR (MDRD) > 60.0 ml/min Glucose 130 H (74-106) mg/dL POC Glucose 244 H (60-110) mg/dL Calcium 8.3 L (8.5-10.1) mg/dL 11/23/20 Range/Units 07:13 WBC (4.0-11.0) K/uL RBC (4.50-5.90) M/uL Hgb (13.0-17.0) g/dL Hct (38.0-50.0) % MCV (80.0-98.0) fL MCH (27.0-32.0) pg MCHC (31.0-37.0) g/dL RDW Std Deviation (28.0-62.0) fl RDW Coeff of Sunny (11.0-15.0) % Plt Count (150-400) K/uL MPV (7.40-12.00) fL Neut % (Auto) (48.0-80.0) % Lymph % (Auto) (16.0-40.0) % [place] % (Auto) (0.0-15.0) % Eos % (Auto) (0.0-7.0) % Baso % (Auto) (0.0-1.5) % Neut # (Auto) (1.4-5.7) K/uL Lymph # (Auto) (0.6-2.4) K/uL [place] # (Auto) (0.0-0.8) K/uL Eos # (Auto) (0.0-0.7) K/uL Baso # (Auto) (0.0-0.1) K/uL Nucleated RBC % /100WBC Nucleated RBCs # K/uL INR Sodium (136-148) mmol/L Potassium (3.5-5.1) mmol/L Chloride (98-107) mmol/L Carbon Dioxide (21.0-32.0) mmol/L BUN (7.0-18.0) mg/dL Creatinine (0.8-1.3) mg/dL Est Cr Clr Drug Dosing mL/min Estimated GFR (MDRD) ml/min Glucose (74-106) mg/dL POC Glucose 110 (60-110) mg/dL Calcium (8.5-10.1) mg/dL Tom Results Last 24 Hours: Microbiology 11/17/20 12:52 Aerobic Blood Culture - Final Blood - Venous - Lab Draw NO GROWTH AFTER 5 DAYS Anaerobic Blood Culture - Final NO GROWTH AFTER 5 DAYS 11/17/20 12:52 Aerobic Blood Culture - Final Blood - Venous NO GROWTH AFTER 5 DAYS Anaerobic Blood Culture - Final NO GROWTH AFTER 5 DAYS 11/20/20 14:40 Gram Stain - Final Sputum - Expectorated Sputum Culture - Final Yeast Normal Respiratory Aretha Med Orders - Current: Current Medications Acetaminophen (Tylenol) 650 mg PO Q4H PRN PRN Reason: Pain (Mild 1-3)/fever Albuterol/Ipratropium (Duoneb 3.0-0.5 Mg/3 Ml) 3 ml NEB Q4HRRT PRN PRN Reason: Shortness Of Breath/wheezing Albuterol/Ipratropium (Combivent Respimat) 0 gm INH Q4H PRN PRN Reason: Dyspnea Dextrose/Water (Dextrose 50% In Water) 50 ml IV ASDIRECTED PRN PRN Reason: Hypoglycemia Folic Acid (Folic Acid) 1 mg PO DAILY [facility] Last Admin: 11/23/20 09:02 Dose: 1 mg Documented by: Furosemide (Lasix) 40 mg PO DAILY [facility] Last Admin: 11/23/20 09:02 Dose: 40 mg Documented by: Glucagon (Glucagen) 1 mg IM ASDIRECTED PRN PRN Reason: Hypoglycemia Guaifenesin/Dextromethorphan (Robitussin Dm) 10 ml PO Q4H PRN PRN Reason: Cough Levofloxacin/Dextrose 750 mg/ (Premix) 150 mls @ 100 mls/hr IV Q24H [facility] Last Admin: 11/22/20 11:27 Dose: 100 mls/hr Documented by: Cefepime HCl 2 gm/ Premix 50 mls @ 100 mls/hr IV Q8H [facility] Last Admin: 11/23/20 03:37 Dose: 100 mls/hr Documented by: Insulin Aspart (Novolog) 0 unit SUBCUT TIDAC [facility]; Protocol Last Admin: 11/23/20 07:15 Dose: Not Given Documented by: Levothyroxine Sodium (Levothyroxine) 150 mcg PO ACBRK [facility] Last Admin: 11/23/20 09:01 Dose: 150 mcg Documented by: Methylprednisolone Sodium Succinate (Solu-Medrol) 125 mg IVPUSH DAILY [facility] Last Admin: 11/23/20 09:02 Dose: 125 mg Documented by: Potassium Chloride (Klor-Con M20) 20 meq PO DAILY [facility] Last Admin: 11/23/20 09:02 Dose: 20 meq Documented by: Sodium Chloride (Saline Flush) 10 ml FLUSH ASDIRECTED PRN PRN Reason: Keep Vein Open Last Admin: 11/17/20 12:58 Dose: 10 ml Documented by: Sodium Chloride (Saline Flush) 2.5 ml FLUSH ASDIRECTED PRN PRN Reason: Keep Vein Open Last Admin: 11/17/20 12:58 Dose: 2.5 ml Documented by: Warfarin Sodium (Coumadin Ask) 1 each PO DAILY@1400 [facility] Last Admin: 11/22/20 14:18 Dose: Not Given Documented by: Discontinued Medications Enoxaparin Sodium (Lovenox) 40 mg SUBCUT Q12HR [facility] Last Admin: 11/18/20 20:46 Dose: 40 mg Documented by: Folic Acid (Folic Acid) 1 mg PO ASDIRECTED [facility] Furosemide (Lasix) 40 mg IVPUSH NOW ONE Stop: 11/17/20 17:21 Last Admin: 11/17/20 18:05 Dose: 40 mg Documented by: Vancomycin HCl 1 gm/ Sodium (Chloride) 250 mls @ 166 mls/hr IV ONETIME ONE Stop: 11/17/20 17:12 Last Admin: 11/17/20 15:48 Dose: 166 mls/hr Documented by: Ceftriaxone Sodium 1 gm/ (Sodium Chloride) 50 mls @ 100 mls/hr IV Q24H [facility] Azithromycin 500 mg/ Sodium (Chloride) 250 mls @ 250 mls/hr IV DAILY [facility] Last Admin: 11/17/20 18:52 Dose: 250 mls/hr Documented by: Ceftriaxone Sodium/Dextrose 1 (gm/ Premix) 50 mls @ 100 mls/hr IV Q24H [facility] Last Admin: 11/19/20 17:02 Dose: 100 mls/hr Documented by: Azithromycin 500 mg/ Sodium (Chloride) 250 mls @ 250 mls/hr IV DAILY@1900 [facility] Last Admin: 11/19/20 18:58 Dose: 250 mls/hr Documented by: Iopamidol (Isovue Multipack-370 (76%)) 100 ml IVPUSH ONETIME ONE Stop: 11/17/20 14:50 Last Admin: 11/17/20 14:52 Dose: 100 ml Documented by: Methylprednisolone Sodium Succinate (Solu-Medrol) 125 mg IVPUSH DAILY [facility] Warfarin Sodium (Coumadin) 7.5 mg PO ONETIME ONE Stop: 11/17/20 18:31 Last Admin: 11/17/20 18:58 Dose: 7.5 mg Documented by: Warfarin Sodium (Coumadin) 5 mg PO 11/18/20@1400 [facility] Stop: 11/18/20 14:01 Last Admin: 11/18/20 15:00 Dose: 5 mg Documented by: Warfarin Sodium (Coumadin) 5 mg PO 11/18/20@1400 [facility] Stop: 11/18/20 14:01 Last Admin: 11/18/20 15:00 Dose: Not Given Documented by: Warfarin Sodium (Coumadin) 2 mg PO 11/19/20@1400 [facility] Stop: 11/19/20 14:01 Last Admin: 11/19/20 13:48 Dose: 2 mg Documented by: Warfarin Sodium (Coumadin) 2.5 mg PO DAILY@1400 [facility] Stop: 11/22/20 14:01 Last Admin: 11/22/20 13:57 Dose: 2.5 mg Documented by: - Exam Quality Assessment: Supplemental Oxygen, DVT Prophylaxis General: Alert, Oriented HEENT: Pupils Equal, Pupils Reactive, EOMI, Mucous Membr. Moist/[place] Neck: Supple Lungs: Normal Respiratory Effort, Decreased Breath Sounds, Crackles (fine in lower lobes) Cardiovascular: Regular Rate, Regular Rhythm GI/Abdominal Exam: Normal Bowel Sounds, Soft, Non-Tender, No Organomegaly, No Distention, No Mass Extremities: Normal Inspection, Normal Range of Motion, Non-Tender, No Pedal Edema, Normal Capillary Refill, Other (Chronic discoloration from previous merlos mentions). No: Leg Pain Peripheral Pulses: 2+: Radial (L), Radial (R), Dorsalis Pedis (L), Dorsalis Pedis (R) Skin: Warm, Dry, Intact Neurological: No New Focal Deficit Psy/Mental Status: Alert, Normal Affect, Normal Mood Sepsis Event Note - Evaluation Sepsis Screening Result: No Definite Risk - Focused Exam Vital Signs: Vital Signs Temp Pulse Resp BP Pulse Ox 11/23/20 08:51 98 F 68 16 100/59 L 90 L 11/23/20 04:00 97.7 F 61 16 101/50 L 96 11/23/20 00:00 97.6 F 18 115/56 L - Problem List Review Problem List Initiated/Reviewed/Updated: Yes - My Orders Last 24 Hours: My Active Orders 11/24/20 05:11 CBC WITH AUTO DIFF [HEME] AM CMP [COMPREHENSIVE METABOLIC PN,CMP] [CHEM] AM 11/25/20 05:11 CBC WITH AUTO DIFF [HEME] AM CMP [COMPREHENSIVE METABOLIC PN,CMP] [CHEM] AM 11/26/20 05:11 CBC WITH AUTO DIFF [HEME] AM CMP [COMPREHENSIVE METABOLIC PN,CMP] [CHEM] AM 11/27/20 05:11 CBC WITH AUTO DIFF [HEME] AM CMP [COMPREHENSIVE METABOLIC PN,CMP] [CHEM] AM 11/28/20 05:11 CBC WITH AUTO DIFF [HEME] AM CMP [COMPREHENSIVE METABOLIC PN,CMP] [CHEM] AM - Plan Plan:: Patient is an 80-year-old gentleman admitted for atypical pneumonia and pulmonary fibrosis. 1. Atypical pneumonia: continue cefepime, Levaquin and Solumedrol 2. Has medical history of recurrent DVTs: Supratherapeutic therapeutic INR today of Continue to have pharmacy dose daily based on INR status 3. Hyperglycemia: Resolved, patient has no history of diabetes, but blood sugars were previously elevated due to the steroids, therefore patient is on a sliding scale insulin. 4. Past medical history of hypothyroidism, fluid retention therefore on Lasix, resumed all home medications
[2020-11-23] MEDS: Levofloxacin/Dextrose 5%-Water 750 MG in Premix Bag 1 BAG IV SCH (11:54)
[2020-11-23] MEDS ORDERED: Warfarin 2 MG Tab PO ONE (14:00)
[2020-11-24] MEDS: Cefepime 2 GM in Premix Bag 1 BAG IV SCH ×3 (02:04→18:46)
[2020-11-24 06:31] LABS: BLOOD UREA NITROGEN,BUN 34 mg/dL (7.0-18.0); CARBON DIOXIDE,CO2 30.7 mmol/L (21.0-32.0); CHLORIDE,CL 105 mmol/L (98-107); GLUCOSE RANDOM 114 mg/dL (74-106); POTASSIUM,K 4.4 mmol/L (3.5-5.1); SODIUM,NA 139 mmol/L (136-148)
[2020-11-24] MEDS: Levothyroxine 150 MCG Tab PO SCH (06:45)
[2020-11-24] MEDS: Insulin Aspart 100 Units/ML 3 ML Pen SUBCUT SCH ×3 (06:46→18:14)
--- NOTE | 2020-11-24 09:15 | PCM.PN ---
- General Info Date of Service: 11/24/20 Admission Dx/Problem (Free Text): Admission Diagnosis/Problem Admission Diagnosis/Problem Pneumonia Subjective Update: 80-year-old gentleman admitted for atypical pneumonia and pulmonary fibrosis requiring heated high flow. There were no overnight events, this morning states he feels he is breathing a little better. Patient remains on 10 L heated high flow by nasal cannula this morning, denies any shortness of breath, chest pain, leg swelling. Functional Status: Reports: Tolerating Diet, Incentive Spirometry - Review of Systems General: Reports: No Symptoms HEENT: Reports: No Symptoms Pulmonary: Reports: Cough (Improved) Cardiovascular: Reports: No Symptoms Gastrointestinal: Reports: No Symptoms Genitourinary: Reports: No Symptoms Musculoskeletal: Reports: No Symptoms Skin: Reports: No Symptoms Neurological: Reports: No Symptoms Psychiatric: Reports: No Symptoms - Patient Data Vitals - Most Recent: Last Vital Signs Temp 97.6 F 11/24/20 08:27 Pulse 64 11/24/20 08:27 Resp 18 11/24/20 08:27 BP 103/54 L 11/24/20 08:27 Pulse Ox 93 L 11/24/20 08:33 Weight - Most Recent: 262 lb 6.4 oz I&O - Last 24 Hours: Intake & Output 11/23/20 11/24/20 11/24/20 22:59 06:59 14:59 Intake Total 740 735 Output Total 1150 500 Balance -410 235 Lab Results Last 24 Hours: Laboratory Results - last 24 hr 11/23/20 11/23/20 11/23/20 Range/Units 09:39 13:47 18:16 WBC (4.0-11.0) K/uL RBC (4.50-5.90) M/uL Hgb (13.0-17.0) g/dL Hct (38.0-50.0) % MCV (80.0-98.0) fL MCH (27.0-32.0) pg MCHC (31.0-37.0) g/dL RDW Std Deviation (28.0-62.0) fl RDW Coeff of Sunny (11.0-15.0) % Plt Count (150-400) K/uL MPV (7.40-12.00) fL Neut % (Auto) (48.0-80.0) % Lymph % (Auto) (16.0-40.0) % [place] % (Auto) (0.0-15.0) % Eos % (Auto) (0.0-7.0) % Baso % (Auto) (0.0-1.5) % Neut # (Auto) (1.4-5.7) K/uL Lymph # (Auto) (0.6-2.4) K/uL [place] # (Auto) (0.0-0.8) K/uL Eos # (Auto) (0.0-0.7) K/uL Baso # (Auto) (0.0-0.1) K/uL Nucleated RBC % /100WBC Nucleated RBCs # K/uL INR 2.76 Sodium (136-148) mmol/L Potassium (3.5-5.1) mmol/L Chloride (98-107) mmol/L Carbon Dioxide (21.0-32.0) mmol/L BUN (7.0-18.0) mg/dL Creatinine (0.8-1.3) mg/dL Est Cr Clr Drug Dosing mL/min Estimated GFR (MDRD) ml/min Glucose (74-106) mg/dL POC Glucose 147 H 149 H (60-110) mg/dL Calcium (8.5-10.1) mg/dL Total Bilirubin (0.2-1.0) mg/dL AST (15-37) IU/L ALT (14-63) IU/L Alkaline Phosphatase (46-116) U/L Total Protein (6.4-8.2) g/dL Albumin (3.4-5.0) g/dL Globulin (2.6-4.0) g/dL Albumin/Globulin Ratio (0.9-1.6) 11/24/20 11/24/20 11/24/20 Range/Units 05:35 05:35 06:35 WBC 15.33 H (4.0-11.0) K/uL RBC 4.34 L (4.50-5.90) M/uL Hgb 13.4 (13.0-17.0) g/dL Hct 42.1 (38.0-50.0) % MCV 97.0 (80.0-98.0) fL MCH 30.9 (27.0-32.0) pg MCHC 31.8 (31.0-37.0) g/dL RDW Std Deviation 52.4 (28.0-62.0) fl RDW Coeff of Sunny 15 (11.0-15.0) % Plt Count 216 (150-400) K/uL MPV 11.80 (7.40-12.00) fL Neut % (Auto) 82.4 H (48.0-80.0) % Lymph % (Auto) 10.7 L (16.0-40.0) % [place] % (Auto) 6.5 (0.0-15.0) % Eos % (Auto) 0.3 (0.0-7.0) % Baso % (Auto) 0.1 (0.0-1.5) % Neut # (Auto) 12.6 H (1.4-5.7) K/uL Lymph # (Auto) 1.6 (0.6-2.4) K/uL [place] # (Auto) 1.0 H (0.0-0.8) K/uL Eos # (Auto) 0.1 (0.0-0.7) K/uL Baso # (Auto) 0.0 (0.0-0.1) K/uL Nucleated RBC % 0.0 /100WBC Nucleated RBCs # 0 K/uL INR Sodium 139 (136-148) mmol/L Potassium 4.4 (3.5-5.1) mmol/L Chloride 105 (98-107) mmol/L Carbon Dioxide 30.7 (21.0-32.0) mmol/L BUN 34 H (7.0-18.0) mg/dL Creatinine 1.0 (0.8-1.3) mg/dL Est Cr Clr Drug Dosing 70.42 mL/min Estimated GFR (MDRD) > 60.0 ml/min Glucose 114 H (74-106) mg/dL POC Glucose 100 (60-110) mg/dL Calcium 8.2 L (8.5-10.1) mg/dL Total Bilirubin 0.6 (0.2-1.0) mg/dL AST 33 (15-37) IU/L ALT 121 H (14-63) IU/L Alkaline Phosphatase 64 (46-116) U/L Total Protein 4.9 L (6.4-8.2) g/dL Albumin 2.4 L (3.4-5.0) g/dL Globulin 2.5 L (2.6-4.0) g/dL Albumin/Globulin Ratio 1.0 (0.9-1.6) Med Orders - Current: Current Medications Acetaminophen (Tylenol) 650 mg PO Q4H PRN PRN Reason: Pain (Mild 1-3)/fever Albuterol/Ipratropium (Duoneb 3.0-0.5 Mg/3 Ml) 3 ml NEB Q4HRRT PRN PRN Reason: Shortness Of Breath/wheezing Albuterol/Ipratropium (Combivent Respimat) 0 gm INH Q4H PRN PRN Reason: Dyspnea Dextrose/Water (Dextrose 50% In Water) 50 ml IV ASDIRECTED PRN PRN Reason: Hypoglycemia Folic Acid (Folic Acid) 1 mg PO DAILY [facility] Last Admin: 11/23/20 09:02 Dose: 1 mg Documented by: Furosemide (Lasix) 40 mg PO DAILY [facility] Last Admin: 11/23/20 09:02 Dose: 40 mg Documented by: Glucagon (Glucagen) 1 mg IM ASDIRECTED PRN PRN Reason: Hypoglycemia Guaifenesin/Dextromethorphan (Robitussin Dm) 10 ml PO Q4H PRN PRN Reason: Cough Levofloxacin/Dextrose 750 mg/ (Premix) 150 mls @ 100 mls/hr IV Q24H [facility] Last Admin: 11/23/20 11:54 Dose: 100 mls/hr Documented by: Cefepime HCl 2 gm/ Premix 50 mls @ 100 mls/hr IV Q8H [facility] Last Admin: 11/24/20 02:04 Dose: 100 mls/hr Documented by: Insulin Aspart (Novolog) 0 unit SUBCUT TIDAC [facility]; Protocol Last Admin: 11/24/20 06:46 Dose: Not Given Documented by: Levothyroxine Sodium (Levothyroxine) 150 mcg PO ACBRK [facility] Last Admin: 11/24/20 06:45 Dose: 150 mcg Documented by: Methylprednisolone Sodium Succinate (Solu-Medrol) 125 mg IVPUSH DAILY [facility] Last Admin: 11/23/20 09:02 Dose: 125 mg Documented by: Potassium Chloride (Klor-Con M20) 20 meq PO DAILY [facility] Last Admin: 11/23/20 09:02 Dose: 20 meq Documented by: Sodium Chloride (Saline Flush) 10 ml FLUSH ASDIRECTED PRN PRN Reason: Keep Vein Open Last Admin: 11/17/20 12:58 Dose: 10 ml Documented by: Sodium Chloride (Saline Flush) 2.5 ml FLUSH ASDIRECTED PRN PRN Reason: Keep Vein Open Last Admin: 11/17/20 12:58 Dose: 2.5 ml Documented by: Warfarin Sodium (Coumadin Ask) 1 each PO DAILY@1400 [facility] Last Admin: 11/23/20 14:09 Dose: Not Given Documented by: Discontinued Medications Enoxaparin Sodium (Lovenox) 40 mg SUBCUT Q12HR [facility] Last Admin: 11/18/20 20:46 Dose: 40 mg Documented by: Folic Acid (Folic Acid) 1 mg PO ASDIRECTED [facility] Furosemide (Lasix) 40 mg IVPUSH NOW ONE Stop: 11/17/20 17:21 Last Admin: 11/17/20 18:05 Dose: 40 mg Documented by: Vancomycin HCl 1 gm/ Sodium (Chloride) 250 mls @ 166 mls/hr IV ONETIME ONE Stop: 11/17/20 17:12 Last Admin: 11/17/20 15:48 Dose: 166 mls/hr Documented by: Ceftriaxone Sodium 1 gm/ (Sodium Chloride) 50 mls @ 100 mls/hr IV Q24H [facility] Azithromycin 500 mg/ Sodium (Chloride) 250 mls @ 250 mls/hr IV DAILY [facility] Last Admin: 11/17/20 18:52 Dose: 250 mls/hr Documented by: Ceftriaxone Sodium/Dextrose 1 (gm/ Premix) 50 mls @ 100 mls/hr IV Q24H [facility] Last Admin: 11/19/20 17:02 Dose: 100 mls/hr Documented by: Azithromycin 500 mg/ Sodium (Chloride) 250 mls @ 250 mls/hr IV DAILY@1900 [facility] Last Admin: 11/19/20 18:58 Dose: 250 mls/hr Documented by: Iopamidol (Isovue Multipack-370 (76%)) 100 ml IVPUSH ONETIME ONE Stop: 11/17/20 14:50 Last Admin: 11/17/20 14:52 Dose: 100 ml Documented by: Methylprednisolone Sodium Succinate (Solu-Medrol) 125 mg IVPUSH DAILY [facility] Warfarin Sodium (Coumadin) 7.5 mg PO ONETIME ONE Stop: 11/17/20 18:31 Last Admin: 11/17/20 18:58 Dose: 7.5 mg Documented by: Warfarin Sodium (Coumadin) 5 mg PO 11/18/20@1400 [facility] Stop: 11/18/20 14:01 Last Admin: 11/18/20 15:00 Dose: 5 mg Documented by: Warfarin Sodium (Coumadin) 5 mg PO 11/18/20@1400 [facility] Stop: 11/18/20 14:01 Last Admin: 11/18/20 15:00 Dose: Not Given Documented by: Warfarin Sodium (Coumadin) 2 mg PO 11/19/20@1400 [facility] Stop: 11/19/20 14:01 Last Admin: 11/19/20 13:48 Dose: 2 mg Documented by: Warfarin Sodium (Coumadin) 2.5 mg PO DAILY@1400 [facility] Stop: 11/22/20 14:01 Last Admin: 11/22/20 13:57 Dose: 2.5 mg Documented by: Warfarin Sodium (Coumadin) 4 mg PO DAILY@1400 [facility] Stop: 11/23/20 14:01 Last Admin: 11/23/20 13:45 Dose: 4 mg Documented by: - Exam Quality Assessment: Supplemental Oxygen (On heated high flow 58%), DVT Prophylaxis (Pharmacy dosing warfarin based on INR daily) General: Alert, Oriented, Cooperative, No Acute Distress HEENT: Pupils Equal, Pupils Reactive, EOMI, Mucous Membr. Moist/[place] Neck: Supple Lungs: Clear to Auscultation, Normal Respiratory Effort Cardiovascular: Regular Rate, Regular Rhythm GI/Abdominal Exam: Normal Bowel Sounds, Soft, Non-Tender, No Organomegaly, No Distention, No Mass, Pelvis Stable Extremities: Normal Inspection, Normal Range of Motion, Non-Tender, No Pedal Edema, Normal Capillary Refill Peripheral Pulses: 2+: Radial (L), Radial (R), Dorsalis Pedis (L), Dorsalis Pedis (R) Skin: Warm, Dry, Intact Neurological: No New Focal Deficit Psy/Mental Status: Alert, Normal Affect, Normal Mood Sepsis Event Note - Evaluation Sepsis Screening Result: No Definite Risk - Focused Exam Vital Signs: Vital Signs Temp Pulse Resp BP Pulse Ox 11/24/20 08:33 93 L 11/24/20 08:27 97.6 F 64 18 103/54 L 93 L 11/24/20 04:17 98.0 F 68 18 110/58 L 96 11/24/20 01:00 97.4 F 68 18 149/69 H 93 L - Problem List Review Problem List Initiated/Reviewed/Updated: Yes - My Orders Last 24 Hours: My Active Orders 11/25/20 05:11 CBC WITH AUTO DIFF [HEME] AM CMP [COMPREHENSIVE METABOLIC PN,CMP] [CHEM] AM 11/26/20 05:11 CBC WITH AUTO DIFF [HEME] AM CMP [COMPREHENSIVE METABOLIC PN,CMP] [CHEM] AM 11/27/20 05:11 CBC WITH AUTO DIFF [HEME] AM CMP [COMPREHENSIVE METABOLIC PN,CMP] [CHEM] AM 11/28/20 05:11 CBC WITH AUTO DIFF [HEME] AM CMP [COMPREHENSIVE METABOLIC PN,CMP] [CHEM] AM - Plan Plan:: Patient is an 80-year-old gentleman admitted for atypical pneumonia and pulmonary fibrosis. 1. Atypical pneumonia: Mild improvement in leukocytosis 15.3 today Sputum culture grew yeast and gram-positive cocci and rods continue cefepime, Levaquin, Solumedrol 2. Has medical history of recurrent DVTs: Therapeutic INR today of 2.9 Continue to have pharmacy dose daily based on INR status 3. Past medical history of hypothyroidism, fluid retention therefore on Lasix, resumed all home medications
[2020-11-24] MEDS: Furosemide 40 MG Tab PO SCH (09:22)
[2020-11-24] MEDS: Folic Acid 1 MG Tab PO SCH (09:22)
[2020-11-24] MEDS: Potassium Chloride 20 MEQ Tab.ER PO SCH (09:22)
[2020-11-24] MEDS: methylPREDNISolone Sodium Succinate 125 MG/2 ML SDV IVPUSH SCH (09:23)
[2020-11-24] MEDS: Levofloxacin/Dextrose 5%-Water 750 MG in Premix Bag 1 BAG IV SCH (11:49)
[2020-11-24] MEDS ORDERED: Warfarin 2.5 MG Tab PO ONE (14:00)
[2020-11-25] MEDS: Cefepime 2 GM in Premix Bag 1 BAG IV SCH ×3 (03:14→18:57)
[2020-11-25 06:58] LABS: BLOOD UREA NITROGEN,BUN 28 mg/dL (7.0-18.0); CARBON DIOXIDE,CO2 31.5 mmol/L (21.0-32.0); CHLORIDE,CL 103 mmol/L (98-107); GLUCOSE RANDOM 127 mg/dL (74-106); POTASSIUM,K 4.3 mmol/L (3.5-5.1); SODIUM,NA 138 mmol/L (136-148)
[2020-11-25] MEDS: Insulin Aspart 100 Units/ML 3 ML Pen SUBCUT SCH ×3 (07:33→18:18)
[2020-11-25] MEDS: Levothyroxine 150 MCG Tab PO SCH (08:44)
[2020-11-25] MEDS: Folic Acid 1 MG Tab PO SCH (10:28)
[2020-11-25] MEDS: Furosemide 40 MG Tab PO SCH (10:28)
[2020-11-25] MEDS: Potassium Chloride 20 MEQ Tab.ER PO SCH (10:29)
[2020-11-25] MEDS: methylPREDNISolone Sodium Succinate 125 MG/2 ML SDV IVPUSH SCH (10:29)
[2020-11-25] MEDS ORDERED: Levofloxacin/Dextrose 5%-Water 150 ML IV ONE (10:43)
[2020-11-25] MEDS: Levofloxacin/Dextrose 5%-Water 750 MG in Premix Bag 1 BAG IV SCH (12:50)
[2020-11-25] MEDS ORDERED: Warfarin 2 MG Tab PO ONE (15:30)
--- NOTE | 2020-11-25 19:31 | PCM.PN ---
- General Info Date of Service: 11/25/20 Admission Dx/Problem (Free Text): Admission Diagnosis/Problem Admission Diagnosis/Problem Pneumonia Subjective Update: 80-year-old gentleman admitted for atypical pneumonia and pulmonary fibrosis requiring heated high flow. There were no overnight events, this morning states he feels he is breathing a little better. Denies any shortness of breath, chest pain, leg swelling. Functional Status: Reports: Tolerating Diet - Review of Systems General: Reports: No Symptoms HEENT: Reports: No Symptoms Pulmonary: Reports: Shortness of Breath Cardiovascular: Reports: No Symptoms Gastrointestinal: Reports: No Symptoms Genitourinary: Reports: No Symptoms Musculoskeletal: Reports: No Symptoms Skin: Reports: No Symptoms Neurological: Reports: No Symptoms Psychiatric: Reports: No Symptoms - Patient Data Vitals - Most Recent: Last Vital Signs Temp 96.9 F 11/25/20 16:00 Pulse 69 11/25/20 16:00 Resp 18 11/25/20 16:00 BP 113/56 L 11/25/20 16:00 Pulse Ox 94 L 11/25/20 16:00 Weight - Most Recent: 262 lb 6.4 oz I&O - Last 24 Hours: Intake & Output 11/25/20 11/25/20 11/25/20 06:59 14:59 22:59 Intake Total 105 747 7119 Output Total 1000 1560 Balance -550 150 -480 Lab Results Last 24 Hours: Laboratory Results - last 24 hr 11/25/20 11/25/20 11/25/20 Range/Units 05:38 05:38 08:19 WBC 13.78 H (4.0-11.0) K/uL RBC 4.49 L (4.50-5.90) M/uL Hgb 13.6 (13.0-17.0) g/dL Hct 43.3 (38.0-50.0) % MCV 96.4 (80.0-98.0) fL MCH 30.3 (27.0-32.0) pg MCHC 31.4 (31.0-37.0) g/dL RDW Std Deviation 52.4 (28.0-62.0) fl RDW Coeff of Sunny 15 (11.0-15.0) % Plt Count 218 (150-400) K/uL MPV 12.10 H (7.40-12.00) fL Neut % (Auto) 75.0 (48.0-80.0) % Lymph % (Auto) 16.6 (16.0-40.0) % [place] % (Auto) 8.0 (0.0-15.0) % Eos % (Auto) 0.3 (0.0-7.0) % Baso % (Auto) 0.1 (0.0-1.5) % Neut # (Auto) 10.3 H (1.4-5.7) K/uL Lymph # (Auto) 2.3 (0.6-2.4) K/uL [place] # (Auto) 1.1 H (0.0-0.8) K/uL Eos # (Auto) 0.0 (0.0-0.7) K/uL Baso # (Auto) 0.0 (0.0-0.1) K/uL Nucleated RBC % 0.0 /100WBC Nucleated RBCs # 0 K/uL INR Sodium 138 (136-148) mmol/L Potassium 4.3 (3.5-5.1) mmol/L Chloride 103 (98-107) mmol/L Carbon Dioxide 31.5 (21.0-32.0) mmol/L BUN 28 H (7.0-18.0) mg/dL Creatinine 0.9 (0.8-1.3) mg/dL Est Cr Clr Drug Dosing 78.24 mL/min Estimated GFR (MDRD) > 60.0 ml/min Glucose 127 H (74-106) mg/dL POC Glucose 97 (60-110) mg/dL Calcium 8.1 L (8.5-10.1) mg/dL Total Bilirubin 0.7 (0.2-1.0) mg/dL AST 32 (15-37) IU/L ALT 130 H (14-63) IU/L Alkaline Phosphatase 64 (46-116) U/L Total Protein 5.0 L (6.4-8.2) g/dL Albumin 2.4 L (3.4-5.0) g/dL Globulin 2.6 (2.6-4.0) g/dL Albumin/Globulin Ratio 0.9 (0.9-1.6) 11/25/20 11/25/20 11/25/20 Range/Units 09:50 13:52 17:52 WBC (4.0-11.0) K/uL RBC (4.50-5.90) M/uL Hgb (13.0-17.0) g/dL Hct (38.0-50.0) % MCV (80.0-98.0) fL MCH (27.0-32.0) pg MCHC (31.0-37.0) g/dL RDW Std Deviation (28.0-62.0) fl RDW Coeff of Sunny (11.0-15.0) % Plt Count (150-400) K/uL MPV (7.40-12.00) fL Neut % (Auto) (48.0-80.0) % Lymph % (Auto) (16.0-40.0) % [place] % (Auto) (0.0-15.0) % Eos % (Auto) (0.0-7.0) % Baso % (Auto) (0.0-1.5) % Neut # (Auto) (1.4-5.7) K/uL Lymph # (Auto) (0.6-2.4) K/uL [place] # (Auto) (0.0-0.8) K/uL Eos # (Auto) (0.0-0.7) K/uL Baso # (Auto) (0.0-0.1) K/uL Nucleated RBC % /100WBC Nucleated RBCs # K/uL INR 3.10 Sodium (136-148) mmol/L Potassium (3.5-5.1) mmol/L Chloride (98-107) mmol/L Carbon Dioxide (21.0-32.0) mmol/L BUN (7.0-18.0) mg/dL Creatinine (0.8-1.3) mg/dL Est Cr Clr Drug Dosing mL/min Estimated GFR (MDRD) ml/min Glucose (74-106) mg/dL POC Glucose 126 H 182 H (60-110) mg/dL Calcium (8.5-10.1) mg/dL Total Bilirubin (0.2-1.0) mg/dL AST (15-37) IU/L ALT (14-63) IU/L Alkaline Phosphatase (46-116) U/L Total Protein (6.4-8.2) g/dL Albumin (3.4-5.0) g/dL Globulin (2.6-4.0) g/dL Albumin/Globulin Ratio (0.9-1.6) Med Orders - Current: Current Medications Acetaminophen (Tylenol) 650 mg PO Q4H PRN PRN Reason: Pain (Mild 1-3)/fever Albuterol/Ipratropium (Duoneb 3.0-0.5 Mg/3 Ml) 3 ml NEB Q4HRRT PRN PRN Reason: Shortness Of Breath/wheezing Albuterol/Ipratropium (Combivent Respimat) 0 gm INH Q4H PRN PRN Reason: Dyspnea Dextrose/Water (Dextrose 50% In Water) 50 ml IV ASDIRECTED PRN PRN Reason: Hypoglycemia Folic Acid (Folic Acid) 1 mg PO DAILY [facility] Last Admin: 11/25/20 10:28 Dose: 1 mg Documented by: Furosemide (Lasix) 40 mg PO DAILY [facility] Last Admin: 11/25/20 10:28 Dose: 40 mg Documented by: Glucagon (Glucagen) 1 mg IM ASDIRECTED PRN PRN Reason: Hypoglycemia Guaifenesin/Dextromethorphan (Robitussin Dm) 10 ml PO Q4H PRN PRN Reason: Cough Levofloxacin/Dextrose 750 mg/ (Premix) 150 mls @ 100 mls/hr IV Q24H [facility] Last Admin: 11/25/20 12:50 Dose: 100 mls/hr Documented by: Cefepime HCl 2 gm/ Premix 50 mls @ 100 mls/hr IV Q8H [facility] Last Admin: 11/25/20 18:57 Dose: 100 mls/hr Documented by: Insulin Aspart (Novolog) 0 unit SUBCUT TIDAC [facility]; Protocol Last Admin: 11/25/20 18:18 Dose: 1 unit Documented by: Levothyroxine Sodium (Levothyroxine) 150 mcg PO ACBRK [facility] Last Admin: 11/25/20 08:44 Dose: 150 mcg Documented by: Methylprednisolone Sodium Succinate (Solu-Medrol) 125 mg IVPUSH DAILY [facility] Last Admin: 11/25/20 10:29 Dose: 125 mg Documented by: Potassium Chloride (Klor-Con M20) 20 meq PO DAILY [facility] Last Admin: 11/25/20 10:29 Dose: 20 meq Documented by: Sodium Chloride (Saline Flush) 10 ml FLUSH ASDIRECTED PRN PRN Reason: Keep Vein Open Last Admin: 11/17/20 12:58 Dose: 10 ml Documented by: Sodium Chloride (Saline Flush) 2.5 ml FLUSH ASDIRECTED PRN PRN Reason: Keep Vein Open Last Admin: 11/17/20 12:58 Dose: 2.5 ml Documented by: Warfarin Sodium (Coumadin Ask) 1 each PO DAILY@1400 [facility] Last Admin: 11/25/20 15:36 Dose: Not Given Documented by: Discontinued Medications Enoxaparin Sodium (Lovenox) 40 mg SUBCUT Q12HR [facility] Last Admin: 11/18/20 20:46 Dose: 40 mg Documented by: Folic Acid (Folic Acid) 1 mg PO ASDIRECTED SUJATHA Furosemide (Lasix) 40 mg IVPUSH NOW ONE Stop: 11/17/20 17:21 Last Admin: 11/17/20 18:05 Dose: 40 mg Documented by: Vancomycin HCl 1 gm/ Sodium (Chloride) 250 mls @ 166 mls/hr IV ONETIME ONE Stop: 11/17/20 17:12 Last Admin: 11/17/20 15:48 Dose: 166 mls/hr Documented by: Ceftriaxone Sodium 1 gm/ (Sodium Chloride) 50 mls @ 100 mls/hr IV Q24H [facility] Azithromycin 500 mg/ Sodium (Chloride) 250 mls @ 250 mls/hr IV DAILY [facility] Last Admin: 11/17/20 18:52 Dose: 250 mls/hr Documented by: Ceftriaxone Sodium/Dextrose 1 (gm/ Premix) 50 mls @ 100 mls/hr IV Q24H [facility] Last Admin: 11/19/20 17:02 Dose: 100 mls/hr Documented by: Azithromycin 500 mg/ Sodium (Chloride) 250 mls @ 250 mls/hr IV DAILY@1900 [facility] Last Admin: 11/19/20 18:58 Dose: 250 mls/hr Documented by: Levofloxacin/Dextrose (Levaquin In D5w 750 Mg/150 Ml) Confirm Administered Dose 150 mls @ as directed IV .STK-MED ONE Stop: 11/25/20 10:44 Last Admin: 11/25/20 12:00 Dose: Not Given Documented by: Iopamidol (Isovue Multipack-370 (76%)) 100 ml IVPUSH ONETIME ONE Stop: 11/17/20 14:50 Last Admin: 11/17/20 14:52 Dose: 100 ml Documented by: Methylprednisolone Sodium Succinate (Solu-Medrol) 125 mg IVPUSH DAILY [facility] Warfarin Sodium (Coumadin) 7.5 mg PO ONETIME ONE Stop: 11/17/20 18:31 Last Admin: 11/17/20 18:58 Dose: 7.5 mg Documented by: Warfarin Sodium (Coumadin) 5 mg PO 11/18/20@1400 [facility] Stop: 11/18/20 14:01 Last Admin: 11/18/20 15:00 Dose: 5 mg Documented by: Warfarin Sodium (Coumadin) 5 mg PO 11/18/20@1400 [facility] Stop: 11/18/20 14:01 Last Admin: 11/18/20 15:00 Dose: Not Given Documented by: Warfarin Sodium (Coumadin) 2 mg PO 11/19/20@1400 [facility] Stop: 11/19/20 14:01 Last Admin: 11/19/20 13:48 Dose: 2 mg Documented by: Warfarin Sodium (Coumadin) 2.5 mg PO DAILY@1400 ONE Stop: 11/22/20 14:01 Last Admin: 11/22/20 13:57 Dose: 2.5 mg Documented by: Warfarin Sodium (Coumadin) 4 mg PO DAILY@1400 ONE Stop: 11/23/20 14:01 Last Admin: 11/23/20 13:45 Dose: 4 mg Documented by: Warfarin Sodium (Coumadin) 2.5 mg PO DAILY@1400 ONE Stop: 11/24/20 14:01 Last Admin: 11/24/20 14:50 Dose: 2.5 mg Documented by: Warfarin Sodium (Coumadin) 2 mg PO DAILY@1530 ONE Stop: 11/25/20 15:31 Last Admin: 11/25/20 15:40 Dose: 2 mg Documented by: - Exam Quality Assessment: DVT Prophylaxis General: Alert, Oriented, Cooperative HEENT: Pupils Equal, Pupils Reactive, EOMI, Mucous Membr. Moist/[place] Neck: Supple, No JVD. No: Lymphadenopathy Lungs: Crackles Cardiovascular: Regular Rate, Regular Rhythm GI/Abdominal Exam: Normal Bowel Sounds, Soft, Non-Tender, No Organomegaly, No Distention, No Mass Extremities: Normal Inspection, Normal Range of Motion, Non-Tender, No Pedal Edema, Normal Capillary Refill Peripheral Pulses: 2+: Radial (L), Radial (R), Posterior Tibial (L), Posterior Tibial (R) Skin: Warm, Dry, Intact Neurological: No New Focal Deficit Psy/Mental Status: Alert, Normal Affect, Normal Mood Sepsis Event Note - Evaluation Sepsis Screening Result: No Definite Risk - Focused Exam Vital Signs: Vital Signs Temp Pulse Resp BP Pulse Ox 11/25/20 16:00 96.9 F 69 18 113/56 L 94 L 11/25/20 12:00 97.7 F 71 16 128/60 94 L 11/25/20 08:15 93 L 11/25/20 08:10 97.5 F 67 16 132/59 L 93 L - Problem List Review Problem List Initiated/Reviewed/Updated: Yes - My Orders Last 24 Hours: My Active Orders 11/26/20 05:11 CBC WITH AUTO DIFF [HEME] AM CMP [COMPREHENSIVE METABOLIC PN,CMP] [CHEM] AM 11/27/20 05:11 CBC WITH AUTO DIFF [HEME] AM CMP [COMPREHENSIVE METABOLIC PN,CMP] [CHEM] AM 11/28/20 05:11 CBC WITH AUTO DIFF [HEME] AM CMP [COMPREHENSIVE METABOLIC PN,CMP] [CHEM] AM - Plan Plan:: Patient is an 80-year-old gentleman admitted for atypical pneumonia and pulmonary fibrosis. 1. Atypical pneumonia: mild improvement in leukocytosis 13.8 today Sputum culture grew yeast and gram-positive cocci and rods continue cefepime, Levaquin, Solumedrol 2. Has medical history of recurrent DVTs: Supratherapeutic INR today of 3.10, will hold today Continue to have pharmacy dose daily based on INR status 3. Past medical history of hypothyroidism, fluid retention therefore on Lasix, resumed all home medications
[2020-11-26] MEDS: Cefepime 2 GM in Premix Bag 1 BAG IV SCH ×3 (02:19→20:05)
[2020-11-26 06:30] LABS: BLOOD UREA NITROGEN,BUN 31 mg/dL (7.0-18.0); CARBON DIOXIDE,CO2 31.3 mmol/L (21.0-32.0); CHLORIDE,CL 102 mmol/L (98-107); GLUCOSE RANDOM 131 mg/dL (74-106); POTASSIUM,K 4.5 mmol/L (3.5-5.1); SODIUM,NA 138 mmol/L (136-148)
[2020-11-26] MEDS: Levothyroxine 150 MCG Tab PO SCH (08:04)
[2020-11-26] MEDS: methylPREDNISolone Sodium Succinate 125 MG/2 ML SDV IVPUSH SCH (08:05)
[2020-11-26] MEDS: Potassium Chloride 20 MEQ Tab.ER PO SCH (08:05)
[2020-11-26] MEDS: Insulin Aspart 100 Units/ML 3 ML Pen SUBCUT SCH ×3 (08:05→18:25)
[2020-11-26] MEDS: Folic Acid 1 MG Tab PO SCH (08:05)
[2020-11-26] MEDS: Furosemide 40 MG Tab PO SCH (08:05)
[2020-11-26] MEDS: Levofloxacin/Dextrose 5%-Water 750 MG in Premix Bag 1 BAG IV SCH (11:15)
[2020-11-26] MEDS ORDERED: Warfarin 2 MG Tab PO SCH (14:00)
--- NOTE | 2020-11-26 16:36 | PCM.PN ---
- General Info Date of Service: 11/26/20 Admission Dx/Problem (Free Text): Admission Diagnosis/Problem Admission Diagnosis/Problem Pneumonia Subjective Update: 80-year-old gentleman admitted for atypical pneumonia and pulmonary fibrosis requiring heated high flow. There were no overnight events, this morning states he feels he is breathing a little better. Denies any shortness of breath, chest pain, leg swelling. Functional Status: Reports: Tolerating Diet, New Symptoms - Review of Systems General: Reports: No Symptoms HEENT: Reports: No Symptoms Pulmonary: Denies: Sputum, Hemoptysis Cardiovascular: Reports: No Symptoms Gastrointestinal: Reports: No Symptoms Genitourinary: Reports: No Symptoms Musculoskeletal: Reports: No Symptoms Skin: Reports: No Symptoms Neurological: Reports: No Symptoms Psychiatric: Reports: No Symptoms - Patient Data Vitals - Most Recent: Last Vital Signs Temp 98 F 11/26/20 11:11 Pulse 75 11/26/20 11:11 Resp 16 11/26/20 11:11 BP 123/56 L 11/26/20 11:11 Pulse Ox 92 L 11/26/20 11:11 Weight - Most Recent: 262 lb 6.4 oz I&O - Last 24 Hours: Intake & Output 11/26/20 11/26/20 11/26/20 06:59 14:59 22:59 Intake Total 150 200 Output Total 355 Balance -205 200 Lab Results Last 24 Hours: Laboratory Results - last 24 hr 11/25/20 11/26/20 11/26/20 Range/Units 17:52 05:27 05:27 WBC 13.33 H (4.0-11.0) K/uL RBC 4.52 (4.50-5.90) M/uL Hgb 13.9 (13.0-17.0) g/dL Hct 43.2 (38.0-50.0) % MCV 95.6 (80.0-98.0) fL MCH 30.8 (27.0-32.0) pg MCHC 32.2 (31.0-37.0) g/dL RDW Std Deviation 51.1 (28.0-62.0) fl RDW Coeff of [place] 15 (11.0-15.0) % Plt Count 203 (150-400) K/uL MPV 11.80 (7.40-12.00) fL Neut % (Auto) 76.0 (48.0-80.0) % Lymph % (Auto) 16.8 (16.0-40.0) % [place] % (Auto) 6.8 (0.0-15.0) % Eos % (Auto) 0.2 (0.0-7.0) % Baso % (Auto) 0.2 (0.0-1.5) % Neut # (Auto) 10.1 H (1.4-5.7) K/uL Lymph # (Auto) 2.2 (0.6-2.4) K/uL [place] # (Auto) 0.9 H (0.0-0.8) K/uL Eos # (Auto) 0.0 (0.0-0.7) K/uL Baso # (Auto) 0.0 (0.0-0.1) K/uL Nucleated RBC % 0.0 /100WBC Nucleated RBCs # 0 K/uL INR 2.60 Sodium (136-148) mmol/L Potassium (3.5-5.1) mmol/L Chloride (98-107) mmol/L Carbon Dioxide (21.0-32.0) mmol/L BUN (7.0-18.0) mg/dL Creatinine (0.8-1.3) mg/dL Est Cr Clr Drug Dosing mL/min Estimated GFR (MDRD) ml/min Glucose (74-106) mg/dL POC Glucose 182 H (60-110) mg/dL Calcium (8.5-10.1) mg/dL Total Bilirubin (0.2-1.0) mg/dL AST (15-37) IU/L ALT (14-63) IU/L Alkaline Phosphatase (46-116) U/L Total Protein (6.4-8.2) g/dL Albumin (3.4-5.0) g/dL Globulin (2.6-4.0) g/dL Albumin/Globulin Ratio (0.9-1.6) 11/26/20 11/26/20 11/26/20 Range/Units 05:27 08:03 12:44 WBC (4.0-11.0) K/uL RBC (4.50-5.90) M/uL Hgb (13.0-17.0) g/dL Hct (38.0-50.0) % MCV (80.0-98.0) fL MCH (27.0-32.0) pg MCHC (31.0-37.0) g/dL RDW Std Deviation (28.0-62.0) fl RDW Coeff of Sunny (11.0-15.0) % Plt Count (150-400) K/uL MPV (7.40-12.00) fL Neut % (Auto) (48.0-80.0) % Lymph % (Auto) (16.0-40.0) % [place] % (Auto) (0.0-15.0) % Eos % (Auto) (0.0-7.0) % Baso % (Auto) (0.0-1.5) % Neut # (Auto) (1.4-5.7) K/uL Lymph # (Auto) (0.6-2.4) K/uL [place] # (Auto) (0.0-0.8) K/uL Eos # (Auto) (0.0-0.7) K/uL Baso # (Auto) (0.0-0.1) K/uL Nucleated RBC % /100WBC Nucleated RBCs # K/uL INR Sodium 138 (136-148) mmol/L Potassium 4.5 (3.5-5.1) mmol/L Chloride 102 (98-107) mmol/L Carbon Dioxide 31.3 (21.0-32.0) mmol/L BUN 31 H (7.0-18.0) mg/dL Creatinine 0.9 (0.8-1.3) mg/dL Est Cr Clr Drug Dosing 78.24 mL/min Estimated GFR (MDRD) > 60.0 ml/min Glucose 131 H (74-106) mg/dL POC Glucose 95 155 H (60-110) mg/dL Calcium 8.1 L (8.5-10.1) mg/dL Total Bilirubin 0.7 (0.2-1.0) mg/dL AST 30 (15-37) IU/L ALT 133 H (14-63) IU/L Alkaline Phosphatase 64 (46-116) U/L Total Protein 4.9 L (6.4-8.2) g/dL Albumin 2.5 L (3.4-5.0) g/dL Globulin 2.4 L (2.6-4.0) g/dL Albumin/Globulin Ratio 1.0 (0.9-1.6) Med Orders - Current: Current Medications Acetaminophen (Tylenol) 650 mg PO Q4H PRN PRN Reason: Pain (Mild 1-3)/fever Albuterol/Ipratropium (Duoneb 3.0-0.5 Mg/3 Ml) 3 ml NEB Q4HRRT PRN PRN Reason: Shortness Of Breath/wheezing Albuterol/Ipratropium (Combivent Respimat) 0 gm INH Q4H PRN PRN Reason: Dyspnea Dextrose/Water (Dextrose 50% In Water) 50 ml IV ASDIRECTED PRN PRN Reason: Hypoglycemia Folic Acid (Folic Acid) 1 mg PO DAILY [facility] Last Admin: 11/26/20 08:05 Dose: 1 mg Documented by: Furosemide (Lasix) 40 mg PO DAILY [facility] Last Admin: 11/26/20 08:05 Dose: 40 mg Documented by: Glucagon (Glucagen) 1 mg IM ASDIRECTED PRN PRN Reason: Hypoglycemia Guaifenesin/Dextromethorphan (Robitussin Dm) 10 ml PO Q4H PRN PRN Reason: Cough Levofloxacin/Dextrose 750 mg/ (Premix) 150 mls @ 100 mls/hr IV Q24H [facility] Last Admin: 11/26/20 11:15 Dose: 100 mls/hr Documented by: Cefepime HCl 2 gm/ Premix 50 mls @ 100 mls/hr IV Q8H [facility] Last Admin: 11/26/20 11:14 Dose: 100 mls/hr Documented by: Insulin Aspart (Novolog) 0 unit SUBCUT TIDAC [facility]; Protocol Last Admin: 11/26/20 14:28 Dose: 1 unit Documented by: Levothyroxine Sodium (Levothyroxine) 150 mcg PO ACBRK [facility] Last Admin: 11/26/20 08:04 Dose: 150 mcg Documented by: Methylprednisolone Sodium Succinate (Solu-Medrol) 125 mg IVPUSH DAILY [facility] Last Admin: 11/26/20 08:05 Dose: 125 mg Documented by: Potassium Chloride (Klor-Con M20) 20 meq PO DAILY [facility] Last Admin: 11/26/20 08:05 Dose: 20 meq Documented by: Sodium Chloride (Saline Flush) 10 ml FLUSH ASDIRECTED PRN PRN Reason: Keep Vein Open Last Admin: 11/17/20 12:58 Dose: 10 ml Documented by: Sodium Chloride (Saline Flush) 2.5 ml FLUSH ASDIRECTED PRN PRN Reason: Keep Vein Open Last Admin: 11/17/20 12:58 Dose: 2.5 ml Documented by: Warfarin Sodium (Coumadin Ask) 1 each PO DAILY@1400 [facility] Last Admin: 11/26/20 14:29 Dose: Not Given Documented by: Discontinued Medications Enoxaparin Sodium (Lovenox) 40 mg SUBCUT Q12HR [facility] Last Admin: 11/18/20 20:46 Dose: 40 mg Documented by: Folic Acid (Folic Acid) 1 mg PO ASDIRECTED SUJATHA Furosemide (Lasix) 40 mg IVPUSH NOW ONE Stop: 11/17/20 17:21 Last Admin: 11/17/20 18:05 Dose: 40 mg Documented by: Vancomycin HCl 1 gm/ Sodium (Chloride) 250 mls @ 166 mls/hr IV ONETIME ONE Stop: 11/17/20 17:12 Last Admin: 11/17/20 15:48 Dose: 166 mls/hr Documented by: Ceftriaxone Sodium 1 gm/ (Sodium Chloride) 50 mls @ 100 mls/hr IV Q24H [facility] Azithromycin 500 mg/ Sodium (Chloride) 250 mls @ 250 mls/hr IV DAILY [facility] Last Admin: 11/17/20 18:52 Dose: 250 mls/hr Documented by: Ceftriaxone Sodium/Dextrose 1 (gm/ Premix) 50 mls @ 100 mls/hr IV Q24H [facility] Last Admin: 11/19/20 17:02 Dose: 100 mls/hr Documented by: Azithromycin 500 mg/ Sodium (Chloride) 250 mls @ 250 mls/hr IV DAILY@1900 [facility] Last Admin: 11/19/20 18:58 Dose: 250 mls/hr Documented by: Levofloxacin/Dextrose (Levaquin In D5w 750 Mg/150 Ml) Confirm Administered Dose 150 mls @ as directed IV .STK-MED ONE Stop: 11/25/20 10:44 Last Admin: 11/25/20 12:00 Dose: Not Given Documented by: Iopamidol (Isovue Multipack-370 (76%)) 100 ml IVPUSH ONETIME ONE Stop: 11/17/20 14:50 Last Admin: 11/17/20 14:52 Dose: 100 ml Documented by: Methylprednisolone Sodium Succinate (Solu-Medrol) 125 mg IVPUSH DAILY [facility] Warfarin Sodium (Coumadin) 7.5 mg PO ONETIME ONE Stop: 11/17/20 18:31 Last Admin: 11/17/20 18:58 Dose: 7.5 mg Documented by: Warfarin Sodium (Coumadin) 5 mg PO 11/18/20@1400 [facility] Stop: 11/18/20 14:01 Last Admin: 11/18/20 15:00 Dose: 5 mg Documented by: Warfarin Sodium (Coumadin) 5 mg PO 11/18/20@1400 [facility] Stop: 11/18/20 14:01 Last Admin: 11/18/20 15:00 Dose: Not Given Documented by: Warfarin Sodium (Coumadin) 2 mg PO 11/19/20@1400 [facility] Stop: 11/19/20 14:01 Last Admin: 11/19/20 13:48 Dose: 2 mg Documented by: Warfarin Sodium (Coumadin) 2.5 mg PO DAILY@1400 ONE Stop: 11/22/20 14:01 Last Admin: 11/22/20 13:57 Dose: 2.5 mg Documented by: Warfarin Sodium (Coumadin) 4 mg PO DAILY@1400 ONE Stop: 11/23/20 14:01 Last Admin: 11/23/20 13:45 Dose: 4 mg Documented by: Warfarin Sodium (Coumadin) 2.5 mg PO DAILY@1400 ONE Stop: 11/24/20 14:01 Last Admin: 11/24/20 14:50 Dose: 2.5 mg Documented by: Warfarin Sodium (Coumadin) 2 mg PO DAILY@1530 ONE Stop: 11/25/20 15:31 Last Admin: 11/25/20 15:40 Dose: 2 mg Documented by: Warfarin Sodium (Coumadin) 2 mg PO 11/26/20@1400 [facility] Stop: 11/26/20 16:00 Last Admin: 11/26/20 14:29 Dose: 2 mg Documented by: - Exam Quality Assessment: Supplemental Oxygen, DVT Prophylaxis General: Alert, Oriented, Cooperative, No Acute Distress HEENT: Pupils Equal, Pupils Reactive, EOMI, Mucous Membr. Moist/[place] Neck: Supple, No JVD Lungs: Clear to Auscultation, Normal Respiratory Effort Cardiovascular: Regular Rate, Regular Rhythm GI/Abdominal Exam: Normal Bowel Sounds, Soft, Non-Tender, No Organomegaly, No Distention, No Mass Extremities: Normal Inspection, Normal Range of Motion, Non-Tender, No Pedal Edema, Normal Capillary Refill Peripheral Pulses: 2+: Radial (L), Radial (R), Dorsalis Pedis (L), Dorsalis Pedis (R) Skin: Warm, Dry, Intact Neurological: No New Focal Deficit Psy/Mental Status: Alert, Normal Affect, Normal Mood Sepsis Event Note - Evaluation Sepsis Screening Result: No Definite Risk - Focused Exam Vital Signs: Vital Signs Temp Pulse Resp BP BP Pulse Ox 11/26/20 11:11 98 F 75 16 123/56 L 92 L 11/26/20 08:01 97.5 F 65 16 120/58 L 93 L - Problem List Review Problem List Initiated/Reviewed/Updated: Yes - My Orders Last 24 Hours: My Active Orders 11/27/20 05:11 CBC WITH AUTO DIFF [HEME] AM CMP [COMPREHENSIVE METABOLIC PN,CMP] [CHEM] AM 11/28/20 05:11 CBC WITH AUTO DIFF [HEME] AM CMP [COMPREHENSIVE METABOLIC PN,CMP] [CHEM] AM - Plan Plan:: Patient is an 80-year-old gentleman admitted for atypical pneumonia and pulmonary fibrosis. 1. Atypical pneumonia: mild improvement again in leukocytosis 13.3 today Requiring less oxygen 25/42 weaned, continue to wean as tolerated, improved crackles and rhonchi in the left lower lobe on physical examination. Continue cefepime, Levaquin, Solumedrol 2. Has medical history of recurrent DVTs: INR today 46 within therapeutic range, continue to dose Coumadin daily per pharmacy recommendations 3. Past medical history of hypothyroidism, fluid retention therefore on Lasix, resumed all home medications
[2020-11-27] MEDS: Cefepime 2 GM in Premix Bag 1 BAG IV SCH ×3 (02:15→19:54)
[2020-11-27 06:03] LABS: BLOOD UREA NITROGEN,BUN 30 mg/dL (7.0-18.0); CARBON DIOXIDE,CO2 33.2 mmol/L (21.0-32.0); CHLORIDE,CL 103 mmol/L (98-107); GLUCOSE RANDOM 129 mg/dL (74-106); POTASSIUM,K 4.2 mmol/L (3.5-5.1); SODIUM,NA 139 mmol/L (136-148)
[2020-11-27] MEDS: Levothyroxine 150 MCG Tab PO SCH (06:38)
[2020-11-27] MEDS: Insulin Aspart 100 Units/ML 3 ML Pen SUBCUT SCH ×3 (06:44→18:48)
[2020-11-27] MEDS: Potassium Chloride 20 MEQ Tab.ER PO SCH (08:59)
[2020-11-27] MEDS: Furosemide 40 MG Tab PO SCH (08:59)
[2020-11-27] MEDS: methylPREDNISolone Sodium Succinate 125 MG/2 ML SDV IVPUSH SCH (08:59)
[2020-11-27] MEDS: Folic Acid 1 MG Tab PO SCH (08:59)
[2020-11-27] MEDS: Levofloxacin/Dextrose 5%-Water 750 MG in Premix Bag 1 BAG IV SCH (12:00)
--- NOTE | 2020-11-27 14:12 | PCM.PN ---
- General Info Date of Service: 11/27/20 Admission Dx/Problem (Free Text): Admission Diagnosis/Problem Admission Diagnosis/Problem Pneumonia Subjective Update: 80-year-old gentleman admitted for atypical pneumonia and pulmonary fibrosis, There were no overnight events, this morning states he feels he is breathing a little better. Denies any shortness of breath, chest pain, leg swelling. has been titrated down to 2.5 NC - Review of Systems General: Denies: Fever, Weakness, Fatigue Pulmonary: Reports: Shortness of Breath, Cough. Denies: Pleuritic Chest Pain, Sputum Cardiovascular: Denies: Chest Pain, Palpitations, Dyspnea on Exertion Gastrointestinal: Denies: Abdominal Pain, Constipation, Decreased Appetite Genitourinary: Denies: Dysuria, Frequency, Burning Musculoskeletal: Denies: Neck Pain, Shoulder Pain, Arm Pain Skin: Denies: Cyanosis, Jaundice, Mottled - Patient Data Vitals - Most Recent: Last Vital Signs Temp 36.5 C 11/27/20 11:08 Pulse 82 11/27/20 11:08 Resp 16 11/27/20 11:08 BP 133/61 11/27/20 11:08 Pulse Ox 93 L 11/27/20 11:08 Weight - Most Recent: 119.023 kg I&O - Last 24 Hours: Intake & Output 11/26/20 11/27/20 11/27/20 22:59 06:59 14:59 Intake Total 1495 350 Output Total 1825 400 Balance -330 -50 Lab Results Last 24 Hours: Laboratory Results - last 24 hr 11/26/20 11/27/20 11/27/20 Range/Units 18:07 05:12 05:12 WBC 15.42 H (4.0-11.0) K/uL RBC 4.59 (4.50-5.90) M/uL Hgb 13.9 (13.0-17.0) g/dL Hct 44.3 (38.0-50.0) % MCV 96.5 (80.0-98.0) fL MCH 30.3 (27.0-32.0) pg MCHC 31.4 (31.0-37.0) g/dL RDW Std Deviation 51.8 (28.0-62.0) fl RDW Coeff of Sunny 15 (11.0-15.0) % Plt Count 197 (150-400) K/uL MPV 12.00 (7.40-12.00) fL Neut % (Auto) 79.0 (48.0-80.0) % Lymph % (Auto) 13.0 L (16.0-40.0) % Hood % (Auto) 7.5 (0.0-15.0) % Eos % (Auto) 0.4 (0.0-7.0) % Baso % (Auto) 0.1 (0.0-1.5) % Neut # (Auto) 12.2 H (1.4-5.7) K/uL Lymph # (Auto) 2.0 (0.6-2.4) K/uL Hood # (Auto) 1.2 H (0.0-0.8) K/uL Eos # (Auto) 0.1 (0.0-0.7) K/uL Baso # (Auto) 0.0 (0.0-0.1) K/uL Nucleated RBC % 0.0 /100WBC Nucleated RBCs # 0 K/uL Sodium 139 (136-148) mmol/L Potassium 4.2 (3.5-5.1) mmol/L Chloride 103 (98-107) mmol/L Carbon Dioxide 33.2 H (21.0-32.0) mmol/L BUN 30 H (7.0-18.0) mg/dL Creatinine 0.9 (0.8-1.3) mg/dL Est Cr Clr Drug Dosing 78.24 mL/min Estimated GFR (MDRD) > 60.0 ml/min Glucose 129 H (74-106) mg/dL POC Glucose 201 H (60-110) mg/dL Calcium 8.0 L (8.5-10.1) mg/dL Total Bilirubin 0.6 (0.2-1.0) mg/dL AST 38 H (15-37) IU/L ALT 141 H (14-63) IU/L Alkaline Phosphatase 66 (46-116) U/L Total Protein 4.9 L (6.4-8.2) g/dL Albumin 2.4 L (3.4-5.0) g/dL Globulin 2.5 L (2.6-4.0) g/dL Albumin/Globulin Ratio 1.0 (0.9-1.6) 11/27/20 11/27/20 Range/Units 06:37 12:30 WBC (4.0-11.0) K/uL RBC (4.50-5.90) M/uL Hgb (13.0-17.0) g/dL Hct (38.0-50.0) % MCV (80.0-98.0) fL MCH (27.0-32.0) pg MCHC (31.0-37.0) g/dL RDW Std Deviation (28.0-62.0) fl RDW Coeff of Sunny (11.0-15.0) % Plt Count (150-400) K/uL MPV (7.40-12.00) fL Neut % (Auto) (48.0-80.0) % Lymph % (Auto) (16.0-40.0) % Hood % (Auto) (0.0-15.0) % Eos % (Auto) (0.0-7.0) % Baso % (Auto) (0.0-1.5) % Neut # (Auto) (1.4-5.7) K/uL Lymph # (Auto) (0.6-2.4) K/uL Hood # (Auto) (0.0-0.8) K/uL Eos # (Auto) (0.0-0.7) K/uL Baso # (Auto) (0.0-0.1) K/uL Nucleated RBC % /100WBC Nucleated RBCs # K/uL Sodium (136-148) mmol/L Potassium (3.5-5.1) mmol/L Chloride (98-107) mmol/L Carbon Dioxide (21.0-32.0) mmol/L BUN (7.0-18.0) mg/dL Creatinine (0.8-1.3) mg/dL Est Cr Clr Drug Dosing mL/min Estimated GFR (MDRD) ml/min Glucose (74-106) mg/dL POC Glucose 92 115 H (60-110) mg/dL Calcium (8.5-10.1) mg/dL Total Bilirubin (0.2-1.0) mg/dL AST (15-37) IU/L ALT (14-63) IU/L Alkaline Phosphatase (46-116) U/L Total Protein (6.4-8.2) g/dL Albumin (3.4-5.0) g/dL Globulin (2.6-4.0) g/dL Albumin/Globulin Ratio (0.9-1.6) Med Orders - Current: Current Medications Acetaminophen (Tylenol) 650 mg PO Q4H PRN PRN Reason: Pain (Mild 1-3)/fever Albuterol/Ipratropium (Duoneb 3.0-0.5 Mg/3 Ml) 3 ml NEB Q4HRRT PRN PRN Reason: Shortness Of Breath/wheezing Albuterol/Ipratropium (Combivent Respimat) 0 gm INH Q4H PRN PRN Reason: Dyspnea Dextrose/Water (Dextrose 50% In Water) 50 ml IV ASDIRECTED PRN PRN Reason: Hypoglycemia Folic Acid (Folic Acid) 1 mg PO DAILY [facility] Last Admin: 11/27/20 08:59 Dose: 1 mg Documented by: Furosemide (Lasix) 40 mg PO DAILY [facility] Last Admin: 11/27/20 08:59 Dose: 40 mg Documented by: Glucagon (Glucagen) 1 mg IM ASDIRECTED PRN PRN Reason: Hypoglycemia Guaifenesin/Dextromethorphan (Robitussin Dm) 10 ml PO Q4H PRN PRN Reason: Cough Cefepime HCl 2 gm/ Premix 50 mls @ 100 mls/hr IV Q8H [facility] Last Admin: 11/27/20 11:04 Dose: 100 mls/hr Documented by: Levofloxacin/Dextrose 750 mg/ (Premix) 150 mls @ 100 mls/hr IV Q24H [facility] Last Admin: 11/27/20 12:00 Dose: 100 mls/hr Documented by: Insulin Aspart (Novolog) 0 unit SUBCUT TIDAC [facility]; Protocol Last Admin: 11/27/20 12:33 Dose: Not Given Documented by: Levothyroxine Sodium (Levothyroxine) 150 mcg PO ACBRK [facility] Last Admin: 11/27/20 06:38 Dose: 150 mcg Documented by: Methylprednisolone Sodium Succinate (Solu-Medrol) 125 mg IVPUSH DAILY [facility] Last Admin: 11/27/20 08:59 Dose: 125 mg Documented by: Potassium Chloride (Klor-Con M20) 20 meq PO DAILY [facility] Last Admin: 11/27/20 08:59 Dose: 20 meq Documented by: Sodium Chloride (Saline Flush) 10 ml FLUSH ASDIRECTED PRN PRN Reason: Keep Vein Open Last Admin: 11/17/20 12:58 Dose: 10 ml Documented by: Sodium Chloride (Saline Flush) 2.5 ml FLUSH ASDIRECTED PRN PRN Reason: Keep Vein Open Last Admin: 11/17/20 12:58 Dose: 2.5 ml Documented by: Warfarin Sodium (Coumadin Ask) 1 each PO DAILY@1400 [facility] Last Admin: 11/26/20 14:29 Dose: Not Given Documented by: Discontinued Medications Enoxaparin Sodium (Lovenox) 40 mg SUBCUT Q12HR [facility] Last Admin: 11/18/20 20:46 Dose: 40 mg Documented by: Folic Acid (Folic Acid) 1 mg PO ASDIRECTED [facility] Furosemide (Lasix) 40 mg IVPUSH NOW ONE Stop: 11/17/20 17:21 Last Admin: 11/17/20 18:05 Dose: 40 mg Documented by: Vancomycin HCl 1 gm/ Sodium (Chloride) 250 mls @ 166 mls/hr IV ONETIME ONE Stop: 11/17/20 17:12 Last Admin: 11/17/20 15:48 Dose: 166 mls/hr Documented by: Ceftriaxone Sodium 1 gm/ (Sodium Chloride) 50 mls @ 100 mls/hr IV Q24H [facility] Azithromycin 500 mg/ Sodium (Chloride) 250 mls @ 250 mls/hr IV DAILY [facility] Last Admin: 11/17/20 18:52 Dose: 250 mls/hr Documented by: Ceftriaxone Sodium/Dextrose 1 (gm/ Premix) 50 mls @ 100 mls/hr IV Q24H [facility] Last Admin: 11/19/20 17:02 Dose: 100 mls/hr Documented by: Azithromycin 500 mg/ Sodium (Chloride) 250 mls @ 250 mls/hr IV DAILY@1900 [facility] Last Admin: 11/19/20 18:58 Dose: 250 mls/hr Documented by: Levofloxacin/Dextrose 750 mg/ (Premix) 150 mls @ 100 mls/hr IV Q24H [facility] Last Admin: 11/26/20 11:15 Dose: 100 mls/hr Documented by: Levofloxacin/Dextrose (Levaquin In D5w 750 Mg/150 Ml) Confirm Administered Dose 150 mls @ as directed IV .STK-MED ONE Stop: 11/25/20 10:44 Last Admin: 11/25/20 12:00 Dose: Not Given Documented by: Iopamidol (Isovue Multipack-370 (76%)) 100 ml IVPUSH ONETIME ONE Stop: 11/17/20 14:50 Last Admin: 11/17/20 14:52 Dose: 100 ml Documented by: Methylprednisolone Sodium Succinate (Solu-Medrol) 125 mg IVPUSH DAILY [facility] Warfarin Sodium (Coumadin) 7.5 mg PO ONETIME ONE Stop: 11/17/20 18:31 Last Admin: 11/17/20 18:58 Dose: 7.5 mg Documented by: Warfarin Sodium (Coumadin) 5 mg PO 11/18/20@1400 [facility] Stop: 11/18/20 14:01 Last Admin: 11/18/20 15:00 Dose: 5 mg Documented by: Warfarin Sodium (Coumadin) 5 mg PO 11/18/20@1400 [facility] Stop: 11/18/20 14:01 Last Admin: 11/18/20 15:00 Dose: Not Given Documented by: Warfarin Sodium (Coumadin) 2 mg PO 11/19/20@1400 [facility] Stop: 11/19/20 14:01 Last Admin: 11/19/20 13:48 Dose: 2 mg Documented by: Warfarin Sodium (Coumadin) 2.5 mg PO DAILY@1400 [facility] Stop: 11/22/20 14:01 Last Admin: 11/22/20 13:57 Dose: 2.5 mg Documented by: Warfarin Sodium (Coumadin) 4 mg PO DAILY@1400 [facility] Stop: 11/23/20 14:01 Last Admin: 11/23/20 13:45 Dose: 4 mg Documented by: Warfarin Sodium (Coumadin) 2.5 mg PO DAILY@1400 [facility] Stop: 11/24/20 14:01 Last Admin: 11/24/20 14:50 Dose: 2.5 mg Documented by: Warfarin Sodium (Coumadin) 2 mg PO DAILY@1530 [facility] Stop: 11/25/20 15:31 Last Admin: 11/25/20 15:40 Dose: 2 mg Documented by: Warfarin Sodium (Coumadin) 2 mg PO 11/26/20@1400 [facility] Stop: 11/26/20 16:00 Last Admin: 11/26/20 14:29 Dose: 2 mg Documented by: - Exam Quality Assessment: Supplemental Oxygen General: Alert, Oriented Lungs: Clear to Auscultation, Decreased Breath Sounds, Crackles Cardiovascular: Regular Rate, Regular Rhythm GI/Abdominal Exam: Normal Bowel Sounds, Soft, Non-Tender Extremities: Normal Inspection, Normal Range of Motion Sepsis Event Note - Evaluation Sepsis Screening Result: No Definite Risk - Focused Exam Vital Signs: Vital Signs Temp Pulse Resp BP BP Pulse Ox 11/27/20 11:08 36.5 C 82 16 133/61 93 L 11/27/20 08:53 36.4 C 69 16 102/53 L 91 L 11/27/20 04:00 36.3 C 66 18 113/61 94 L - Problem List & Annotations (1) Atypical pneumonia SNOMED Code(s): 533917330 Code(s): J18.9 - PNEUMONIA, UNSPECIFIED ORGANISM Status: Acute Current Visit: Yes (2) Pulmonary fibrosis SNOMED Code(s): 19779402 Code(s): J84.10 - PULMONARY FIBROSIS, UNSPECIFIED Status: Acute Current Visit: Yes (3) Emphysema of lung SNOMED Code(s): 17851778 Code(s): J43.9 - EMPHYSEMA, UNSPECIFIED Status: Acute Current Visit: Yes - Problem List Review Problem List Initiated/Reviewed/Updated: Yes - My Orders Last 24 Hours: My Active Orders 11/27/20 13:49 INR,PT,PROTHROMBIN TIME [COAG] Stat - Plan Plan:: Patient is an 80-year-old gentleman admitted for atypical pneumonia and pulmonary fibrosis. 1. Atypical pneumonia: mild improvement again in leukocytosis 13.3 today Requiring less oxygen , continue to wean as tolerated, improved crackles and rhonchi in the left lower lobe on physical examination. Continue cefepime, Levaquin, Solumedrol 2. Has medical history of recurrent DVTs: continue to dose Coumadin daily per pharmacy recommendations, check INR 3. Past medical history of hypothyroidism, fluid retention therefore on Lasix, resumed all home medications
[2020-11-27] MEDS ORDERED: Warfarin 2.5 MG Tab PO SCH (14:30)
[2020-11-27] MEDS: predniSONE 20 MG Tab PO SCH (20:01)
[2020-11-28] MEDS: Cefepime 2 GM in Premix Bag 1 BAG IV SCH ×3 (04:07→19:48)
[2020-11-28 05:45] LABS: BLOOD UREA NITROGEN,BUN 32 mg/dL (7.0-18.0); CARBON DIOXIDE,CO2 33.8 mmol/L (21.0-32.0); CHLORIDE,CL 105 mmol/L (98-107); GLUCOSE RANDOM 154 mg/dL (74-106); POTASSIUM,K 4.9 mmol/L (3.5-5.1); SODIUM,NA 141 mmol/L (136-148)
[2020-11-28] MEDS: Levothyroxine 150 MCG Tab PO SCH (06:49)
[2020-11-28] MEDS: Insulin Aspart 100 Units/ML 3 ML Pen SUBCUT SCH ×3 (07:49→18:33)
[2020-11-28] MEDS: predniSONE 20 MG Tab PO SCH ×2 (09:24→20:05)
[2020-11-28] MEDS: Potassium Chloride 20 MEQ Tab.ER PO SCH (09:25)
[2020-11-28] MEDS: Folic Acid 1 MG Tab PO SCH (09:25)
[2020-11-28] MEDS: Furosemide 40 MG Tab PO SCH (09:25)
[2020-11-28] MEDS: Levofloxacin/Dextrose 5%-Water 750 MG in Premix Bag 1 BAG IV SCH (12:19)
[2020-11-29] MEDS: Cefepime 2 GM in Premix Bag 1 BAG IV SCH ×3 (03:55→18:33)
[2020-11-29] MEDS: Levothyroxine 150 MCG Tab PO SCH (06:29)
[2020-11-29] MEDS: Insulin Aspart 100 Units/ML 3 ML Pen SUBCUT SCH ×3 (06:49→18:33)
[2020-11-29] MEDS: Furosemide 40 MG Tab PO SCH (09:48)
[2020-11-29] MEDS: predniSONE 20 MG Tab PO SCH ×2 (09:48→20:15)
[2020-11-29] MEDS: Folic Acid 1 MG Tab PO SCH (09:48)
[2020-11-29] MEDS: Potassium Chloride 20 MEQ Tab.ER PO SCH (09:48)
--- NOTE | 2020-11-29 11:27 | PCM.PN ---
- General Info Date of Service: 11/28/20 Admission Dx/Problem (Free Text): Admission Diagnosis/Problem Admission Diagnosis/Problem Pneumonia Subjective Update: 80-year-old gentleman admitted for atypical pneumonia and pulmonary fibrosis, There were no overnight events, this morning states he feels he is breathing a little better. Denies any shortness of breath, chest pain, leg swelling. has been titrated down to 2.5 NC Functional Status: Reports: Pain Controlled, Tolerating Diet, Ambulating, Urinating - Review of Systems General: Reports: Weakness, Fatigue. Denies: Fever, Malaise Pulmonary: Reports: Shortness of Breath. Denies: Pleuritic Chest Pain, Cough Cardiovascular: Denies: Chest Pain, Palpitations, Dyspnea on Exertion Gastrointestinal: Denies: Abdominal Pain, Constipation, Decreased Appetite Genitourinary: Denies: Dysuria, Frequency Musculoskeletal: Denies: Neck Pain, Shoulder Pain Skin: Denies: Cyanosis, Jaundice, Mottled Neurological: Denies: Confusion, Dizziness, Headache - Patient Data Vitals - Most Recent: Last Vital Signs Temp 36.2 C 11/29/20 09:51 Pulse 63 11/29/20 09:51 Resp 18 11/29/20 09:51 BP 124/60 11/29/20 09:51 Pulse Ox 92 L 11/29/20 09:51 Weight - Most Recent: 119.023 kg I&O - Last 24 Hours: Intake & Output 11/28/20 11/29/20 11/29/20 22:59 06:59 14:59 Intake Total 1306 500 Output Total 805 650 Balance 501 -150 Lab Results Last 24 Hours: Laboratory Results - last 24 hr 11/28/20 11/28/20 11/28/20 Range/Units 05:14 13:28 18:19 INR POC Glucose 123 H 132 H (60-110) mg/dL Vitamin D 25-Hydroxy 15.3 L (30.0-100.0) ng/mL 11/29/20 11/29/20 Range/Units 06:12 06:31 INR 2.05 POC Glucose 111 H (60-110) mg/dL Vitamin D 25-Hydroxy (30.0-100.0) ng/mL Med Orders - Current: Current Medications Acetaminophen (Tylenol) 650 mg PO Q4H PRN PRN Reason: Pain (Mild 1-3)/fever Albuterol/Ipratropium (Duoneb 3.0-0.5 Mg/3 Ml) 3 ml NEB Q4HRRT PRN PRN Reason: Shortness Of Breath/wheezing Albuterol/Ipratropium (Combivent Respimat) 0 gm INH Q4H PRN PRN Reason: Dyspnea Dextrose/Water (Dextrose 50% In Water) 50 ml IV ASDIRECTED PRN PRN Reason: Hypoglycemia Folic Acid (Folic Acid) 1 mg PO DAILY [facility] Last Admin: 11/29/20 09:48 Dose: 1 mg Documented by: Furosemide (Lasix) 40 mg PO DAILY [facility] Last Admin: 11/29/20 09:48 Dose: 40 mg Documented by: Glucagon (Glucagen) 1 mg IM ASDIRECTED PRN PRN Reason: Hypoglycemia Guaifenesin/Dextromethorphan (Robitussin Dm) 10 ml PO Q4H PRN PRN Reason: Cough Cefepime HCl 2 gm/ Premix 50 mls @ 100 mls/hr IV Q8H [facility] Last Admin: 11/29/20 11:18 Dose: 100 mls/hr Documented by: Levofloxacin/Dextrose 750 mg/ (Premix) 150 mls @ 100 mls/hr IV Q24H [facility] Last Admin: 11/28/20 12:19 Dose: 100 mls/hr Documented by: Insulin Aspart (Novolog) 0 unit SUBCUT TIDAC [facility]; Protocol Last Admin: 11/29/20 06:49 Dose: Not Given Documented by: Levothyroxine Sodium (Levothyroxine) 150 mcg PO ACBRK [facility] Last Admin: 11/29/20 06:29 Dose: 150 mcg Documented by: Potassium Chloride (Klor-Con M20) 20 meq PO DAILY [facility] Last Admin: 11/29/20 09:48 Dose: 20 meq Documented by: Prednisone (Prednisone) 40 mg PO BID [facility] Last Admin: 11/29/20 09:48 Dose: 40 mg Documented by: Sodium Chloride (Saline Flush) 10 ml FLUSH ASDIRECTED PRN PRN Reason: Keep Vein Open Last Admin: 11/17/20 12:58 Dose: 10 ml Documented by: Sodium Chloride (Saline Flush) 2.5 ml FLUSH ASDIRECTED PRN PRN Reason: Keep Vein Open Last Admin: 11/17/20 12:58 Dose: 2.5 ml Documented by: Warfarin Sodium (Coumadin Ask) 1 each PO DAILY@1400 [facility] Last Admin: 11/28/20 14:46 Dose: Not Given Documented by: Discontinued Medications Enoxaparin Sodium (Lovenox) 40 mg SUBCUT Q12HR [facility] Last Admin: 11/18/20 20:46 Dose: 40 mg Documented by: Folic Acid (Folic Acid) 1 mg PO ASDIRECTED [facility] Furosemide (Lasix) 40 mg IVPUSH NOW ONE Stop: 11/17/20 17:21 Last Admin: 11/17/20 18:05 Dose: 40 mg Documented by: Vancomycin HCl 1 gm/ Sodium (Chloride) 250 mls @ 166 mls/hr IV ONETIME ONE Stop: 11/17/20 17:12 Last Admin: 11/17/20 15:48 Dose: 166 mls/hr Documented by: Ceftriaxone Sodium 1 gm/ (Sodium Chloride) 50 mls @ 100 mls/hr IV Q24H [facility] Azithromycin 500 mg/ Sodium (Chloride) 250 mls @ 250 mls/hr IV DAILY [facility] Last Admin: 11/17/20 18:52 Dose: 250 mls/hr Documented by: Ceftriaxone Sodium/Dextrose 1 (gm/ Premix) 50 mls @ 100 mls/hr IV Q24H [facility] Last Admin: 11/19/20 17:02 Dose: 100 mls/hr Documented by: Azithromycin 500 mg/ Sodium (Chloride) 250 mls @ 250 mls/hr IV DAILY@1900 [facility] Last Admin: 11/19/20 18:58 Dose: 250 mls/hr Documented by: Levofloxacin/Dextrose 750 mg/ (Premix) 150 mls @ 100 mls/hr IV Q24H [facility] Last Admin: 11/26/20 11:15 Dose: 100 mls/hr Documented by: Levofloxacin/Dextrose (Levaquin In D5w 750 Mg/150 Ml) Confirm Administered Dose 150 mls @ as directed IV .STK-MED ONE Stop: 11/25/20 10:44 Last Admin: 11/25/20 12:00 Dose: Not Given Documented by: Iopamidol (Isovue Multipack-370 (76%)) 100 ml IVPUSH ONETIME ONE Stop: 11/17/20 14:50 Last Admin: 11/17/20 14:52 Dose: 100 ml Documented by: Methylprednisolone Sodium Succinate (Solu-Medrol) 125 mg IVPUSH DAILY [facility] Methylprednisolone Sodium Succinate (Solu-Medrol) 125 mg IVPUSH DAILY [facility] Last Admin: 11/27/20 08:59 Dose: 125 mg Documented by: Warfarin Sodium (Coumadin) 7.5 mg PO ONETIME ONE Stop: 11/17/20 18:31 Last Admin: 11/17/20 18:58 Dose: 7.5 mg Documented by: Warfarin Sodium (Coumadin) 5 mg PO 11/18/20@1400 [facility] Stop: 11/18/20 14:01 Last Admin: 11/18/20 15:00 Dose: 5 mg Documented by: Warfarin Sodium (Coumadin) 5 mg PO 11/18/20@1400 [facility] Stop: 11/18/20 14:01 Last Admin: 11/18/20 15:00 Dose: Not Given Documented by: Warfarin Sodium (Coumadin) 2 mg PO 11/19/20@1400 [facility] Stop: 11/19/20 14:01 Last Admin: 11/19/20 13:48 Dose: 2 mg Documented by: Warfarin Sodium (Coumadin) 2.5 mg PO DAILY@1400 [facility] Stop: 11/22/20 14:01 Last Admin: 11/22/20 13:57 Dose: 2.5 mg Documented by: Warfarin Sodium (Coumadin) 4 mg PO DAILY@1400 [facility] Stop: 11/23/20 14:01 Last Admin: 11/23/20 13:45 Dose: 4 mg Documented by: Warfarin Sodium (Coumadin) 2.5 mg PO DAILY@1400 [facility] Stop: 11/24/20 14:01 Last Admin: 11/24/20 14:50 Dose: 2.5 mg Documented by: Warfarin Sodium (Coumadin) 2 mg PO DAILY@1530 [facility] Stop: 11/25/20 15:31 Last Admin: 11/25/20 15:40 Dose: 2 mg Documented by: Warfarin Sodium (Coumadin) 2 mg PO 11/26/20@1400 [facility] Stop: 11/26/20 16:00 Last Admin: 11/26/20 14:29 Dose: 2 mg Documented by: Warfarin Sodium (Coumadin) 2.5 mg PO 11/27/20@1430 [facility] Stop: 11/27/20 15:30 Last Admin: 11/27/20 14:56 Dose: 2.5 mg Documented by: Warfarin Sodium (Coumadin) 3 mg PO 11/28/20@1400 [facility] Stop: 11/28/20 15:00 Last Admin: 11/28/20 14:45 Dose: 3 mg Documented by: - Exam Quality Assessment: Supplemental Oxygen General: Alert, Oriented Neck: Supple Lungs: Clear to Auscultation, Normal Respiratory Effort, Crackles. No: Rales Cardiovascular: Regular Rate, Regular Rhythm GI/Abdominal Exam: Normal Bowel Sounds, Soft, Non-Tender Sepsis Event Note - Evaluation Sepsis Screening Result: No Definite Risk - Focused Exam Vital Signs: Vital Signs Temp Pulse Resp BP BP Pulse Ox 11/29/20 09:51 36.2 C 63 18 124/60 92 L 11/29/20 04:00 36.3 C 74 18 123/58 L 91 L 11/29/20 00:06 36.3 C 60 18 136/68 95 - Problem List & Annotations (1) Atypical pneumonia SNOMED Code(s): 710480869 Code(s): J18.9 - PNEUMONIA, UNSPECIFIED ORGANISM Status: Acute Current Visit: Yes (2) Pulmonary fibrosis SNOMED Code(s): 53630706 Code(s): J84.10 - PULMONARY FIBROSIS, UNSPECIFIED Status: Acute Current Visit: Yes (3) Emphysema of lung SNOMED Code(s): 52729949 Code(s): J43.9 - EMPHYSEMA, UNSPECIFIED Status: Acute Current Visit: Yes - Problem List Review Problem List Initiated/Reviewed/Updated: Yes - Plan Plan:: Patient is an 80-year-old gentleman admitted for atypical pneumonia and pulmona ry fibrosis. 1. Atypical pneumonia: Requiring less oxygen , continue to wean as tolerated, improved breath sounds, mild crackles Continue cefepime, Levaquin, Solumedrol -is desaturating on ambulating to low 80s on 4ls, sating in 90s on 2L resting 2. Has medical history of recurrent DVTs: continue to dose Coumadin daily per pharmacy recommendations, check INR 3. Past medical history of hypothyroidism, fluid retention therefore on Lasix, resumed all home medications Dispo: cont PT, possible dc Wednesday, awaiting improvement in ambulating oxygen saturations
--- NOTE | 2020-11-29 11:41 | PCM.PN ---
- General Info Date of Service: 11/29/20 Admission Dx/Problem (Free Text): Admission Diagnosis/Problem Admission Diagnosis/Problem Pneumonia Subjective Update: 80-year-old gentleman admitted for atypical pneumonia and pulmonary fibrosis, There were no overnight events, this morning states he feels he is breathing a little better. Denies any shortness of breath, chest pain, leg swelling. has been titrated down to 2L NC Functional Status: Reports: Tolerating Diet, Ambulating - Review of Systems General: Reports: Weakness, Fatigue. Denies: Fever, Malaise Pulmonary: Reports: Shortness of Breath. Denies: Pleuritic Chest Pain, Cough, Sputum Cardiovascular: Denies: Chest Pain, Palpitations Gastrointestinal: Denies: Abdominal Pain, Constipation, Decreased Appetite Genitourinary: Denies: Dysuria, Frequency Musculoskeletal: Denies: Neck Pain, Shoulder Pain Skin: Denies: Cyanosis, Jaundice - Patient Data Vitals - Most Recent: Last Vital Signs Temp 36.2 C 11/29/20 09:51 Pulse 63 11/29/20 09:51 Resp 18 11/29/20 09:51 BP 124/60 11/29/20 09:51 Pulse Ox 92 L 11/29/20 09:51 Weight - Most Recent: 119.023 kg I&O - Last 24 Hours: Intake & Output 11/28/20 11/29/20 11/29/20 22:59 06:59 14:59 Intake Total 1306 500 Output Total 805 650 Balance 501 -150 Lab Results Last 24 Hours: Laboratory Results - last 24 hr 11/28/20 11/28/20 11/28/20 Range/Units 05:14 13:28 18:19 INR POC Glucose 123 H 132 H (60-110) mg/dL Vitamin D 25-Hydroxy 15.3 L (30.0-100.0) ng/mL 11/29/20 11/29/20 Range/Units 06:12 06:31 INR 2.05 POC Glucose 111 H (60-110) mg/dL Vitamin D 25-Hydroxy (30.0-100.0) ng/mL Med Orders - Current: Current Medications Acetaminophen (Tylenol) 650 mg PO Q4H PRN PRN Reason: Pain (Mild 1-3)/fever Albuterol/Ipratropium (Duoneb 3.0-0.5 Mg/3 Ml) 3 ml NEB Q4HRRT PRN PRN Reason: Shortness Of Breath/wheezing Albuterol/Ipratropium (Combivent Respimat) 0 gm INH Q4H PRN PRN Reason: Dyspnea Dextrose/Water (Dextrose 50% In Water) 50 ml IV ASDIRECTED PRN PRN Reason: Hypoglycemia Folic Acid (Folic Acid) 1 mg PO DAILY [facility] Last Admin: 11/29/20 09:48 Dose: 1 mg Documented by: Furosemide (Lasix) 40 mg PO DAILY [facility] Last Admin: 11/29/20 09:48 Dose: 40 mg Documented by: Glucagon (Glucagen) 1 mg IM ASDIRECTED PRN PRN Reason: Hypoglycemia Guaifenesin/Dextromethorphan (Robitussin Dm) 10 ml PO Q4H PRN PRN Reason: Cough Cefepime HCl 2 gm/ Premix 50 mls @ 100 mls/hr IV Q8H [facility] Last Admin: 11/29/20 11:18 Dose: 100 mls/hr Documented by: Levofloxacin/Dextrose 750 mg/ (Premix) 150 mls @ 100 mls/hr IV Q24H [facility] Last Admin: 11/28/20 12:19 Dose: 100 mls/hr Documented by: Insulin Aspart (Novolog) 0 unit SUBCUT TIDAC [facility]; Protocol Last Admin: 11/29/20 06:49 Dose: Not Given Documented by: Levothyroxine Sodium (Levothyroxine) 150 mcg PO ACBRK [facility] Last Admin: 11/29/20 06:29 Dose: 150 mcg Documented by: Potassium Chloride (Klor-Con M20) 20 meq PO DAILY [facility] Last Admin: 11/29/20 09:48 Dose: 20 meq Documented by: Prednisone (Prednisone) 40 mg PO BID [facility] Last Admin: 11/29/20 09:48 Dose: 40 mg Documented by: Sodium Chloride (Saline Flush) 10 ml FLUSH ASDIRECTED PRN PRN Reason: Keep Vein Open Last Admin: 11/17/20 12:58 Dose: 10 ml Documented by: Sodium Chloride (Saline Flush) 2.5 ml FLUSH ASDIRECTED PRN PRN Reason: Keep Vein Open Last Admin: 11/17/20 12:58 Dose: 2.5 ml Documented by: Warfarin Sodium (Coumadin Ask) 1 each PO DAILY@1400 [facility] Last Admin: 11/28/20 14:46 Dose: Not Given Documented by: Discontinued Medications Enoxaparin Sodium (Lovenox) 40 mg SUBCUT Q12HR [facility] Last Admin: 11/18/20 20:46 Dose: 40 mg Documented by: Folic Acid (Folic Acid) 1 mg PO ASDIRECTED [facility] Furosemide (Lasix) 40 mg IVPUSH NOW ONE Stop: 11/17/20 17:21 Last Admin: 11/17/20 18:05 Dose: 40 mg Documented by: Vancomycin HCl 1 gm/ Sodium (Chloride) 250 mls @ 166 mls/hr IV ONETIME ONE Stop: 11/17/20 17:12 Last Admin: 11/17/20 15:48 Dose: 166 mls/hr Documented by: Ceftriaxone Sodium 1 gm/ (Sodium Chloride) 50 mls @ 100 mls/hr IV Q24H [facility] Azithromycin 500 mg/ Sodium (Chloride) 250 mls @ 250 mls/hr IV DAILY [facility] Last Admin: 11/17/20 18:52 Dose: 250 mls/hr Documented by: Ceftriaxone Sodium/Dextrose 1 (gm/ Premix) 50 mls @ 100 mls/hr IV Q24H [facility] Last Admin: 11/19/20 17:02 Dose: 100 mls/hr Documented by: Azithromycin 500 mg/ Sodium (Chloride) 250 mls @ 250 mls/hr IV DAILY@1900 [facility] Last Admin: 11/19/20 18:58 Dose: 250 mls/hr Documented by: Levofloxacin/Dextrose 750 mg/ (Premix) 150 mls @ 100 mls/hr IV Q24H [facility] Last Admin: 11/26/20 11:15 Dose: 100 mls/hr Documented by: Levofloxacin/Dextrose (Levaquin In D5w 750 Mg/150 Ml) Confirm Administered Dose 150 mls @ as directed IV .STK-MED ONE Stop: 11/25/20 10:44 Last Admin: 11/25/20 12:00 Dose: Not Given Documented by: Iopamidol (Isovue Multipack-370 (76%)) 100 ml IVPUSH ONETIME ONE Stop: 11/17/20 14:50 Last Admin: 11/17/20 14:52 Dose: 100 ml Documented by: Methylprednisolone Sodium Succinate (Solu-Medrol) 125 mg IVPUSH DAILY [facility] Methylprednisolone Sodium Succinate (Solu-Medrol) 125 mg IVPUSH DAILY [facility] Last Admin: 11/27/20 08:59 Dose: 125 mg Documented by: Warfarin Sodium (Coumadin) 7.5 mg PO ONETIME ONE Stop: 11/17/20 18:31 Last Admin: 11/17/20 18:58 Dose: 7.5 mg Documented by: Warfarin Sodium (Coumadin) 5 mg PO 11/18/20@1400 [facility] Stop: 11/18/20 14:01 Last Admin: 11/18/20 15:00 Dose: 5 mg Documented by: Warfarin Sodium (Coumadin) 5 mg PO 11/18/20@1400 [facility] Stop: 11/18/20 14:01 Last Admin: 11/18/20 15:00 Dose: Not Given Documented by: Warfarin Sodium (Coumadin) 2 mg PO 11/19/20@1400 [facility] Stop: 11/19/20 14:01 Last Admin: 11/19/20 13:48 Dose: 2 mg Documented by: Warfarin Sodium (Coumadin) 2.5 mg PO DAILY@1400 [facility] Stop: 11/22/20 14:01 Last Admin: 11/22/20 13:57 Dose: 2.5 mg Documented by: Warfarin Sodium (Coumadin) 4 mg PO DAILY@1400 [facility] Stop: 11/23/20 14:01 Last Admin: 11/23/20 13:45 Dose: 4 mg Documented by: Warfarin Sodium (Coumadin) 2.5 mg PO DAILY@1400 [facility] Stop: 11/24/20 14:01 Last Admin: 11/24/20 14:50 Dose: 2.5 mg Documented by: Warfarin Sodium (Coumadin) 2 mg PO DAILY@1530 [facility] Stop: 11/25/20 15:31 Last Admin: 11/25/20 15:40 Dose: 2 mg Documented by: Warfarin Sodium (Coumadin) 2 mg PO 11/26/20@1400 [facility] Stop: 11/26/20 16:00 Last Admin: 11/26/20 14:29 Dose: 2 mg Documented by: Warfarin Sodium (Coumadin) 2.5 mg PO 11/27/20@1430 [facility] Stop: 11/27/20 15:30 Last Admin: 11/27/20 14:56 Dose: 2.5 mg Documented by: Warfarin Sodium (Coumadin) 3 mg PO 11/28/20@1400 [facility] Stop: 11/28/20 15:00 Last Admin: 11/28/20 14:45 Dose: 3 mg Documented by: - Exam Quality Assessment: Supplemental Oxygen General: Alert, Oriented Lungs: Normal Respiratory Effort, Crackles, Rales. No: Decreased Breath Sounds Cardiovascular: Regular Rate, Regular Rhythm GI/Abdominal Exam: Normal Bowel Sounds, Soft, Non-Tender Back Exam: Normal Inspection, Full Range of Motion Sepsis Event Note - Evaluation Sepsis Screening Result: No Definite Risk - Focused Exam Vital Signs: Vital Signs Temp Pulse Resp BP BP Pulse Ox 11/29/20 09:51 36.2 C 63 18 124/60 92 L 11/29/20 04:00 36.3 C 74 18 123/58 L 91 L 11/29/20 00:06 36.3 C 60 18 136/68 95 - Problem List & Annotations (1) Atypical pneumonia SNOMED Code(s): 409118300 Code(s): J18.9 - PNEUMONIA, UNSPECIFIED ORGANISM Status: Acute Current Visit: Yes (2) Pulmonary fibrosis SNOMED Code(s): 99619338 Code(s): J84.10 - PULMONARY FIBROSIS, UNSPECIFIED Status: Acute Current V isit: Yes (3) Emphysema of lung SNOMED Code(s): 57185928 Code(s): J43.9 - EMPHYSEMA, UNSPECIFIED Status: Acute Current Visit: Yes - Problem List Review Problem List Initiated/Reviewed/Updated: Yes - Plan Plan:: Patient is an 80-year-old gentleman admitted for atypical pneumonia and pulmonary fibrosis. 1. Atypical pneumonia: Requiring less oxygen , continue to wean as tolerated, Continue cefepime, Levaquin, Solumedrol -is desaturating on ambulating to low 80s on 4ls, sating in 90s on 2L resting - hasn't been getting PRN Combivent, will make it scheduled 2. Has medical history of recurrent DVTs: continue to dose Coumadin daily per pharmacy recommendations, check INR 3. Past medical history of hypothyroidism, fluid retention therefore on Lasix, resumed all home medications Dispo: cont PT, possible dc Wednesday, awaiting improvement in ambulating oxygen saturations
[2020-11-29] MEDS ORDERED: Albuterol/Ipratropium 4 GM Inhalation Spray INH SCH ×2 (11:45)
[2020-11-29] MEDS: Levofloxacin/Dextrose 5%-Water 750 MG in Premix Bag 1 BAG IV SCH (11:56)
[2020-11-29] MEDS: Cholecalciferol (Vitamin D3) 25 MCG Tab PO SCH (12:02)
[2020-11-29 12:14] LABS: BLOOD UREA NITROGEN,BUN 29 mg/dL (7.0-18.0); CARBON DIOXIDE,CO2 29.6 mmol/L (21.0-32.0); CHLORIDE,CL 104 mmol/L (98-107); GLUCOSE RANDOM 223 mg/dL (74-106); POTASSIUM,K 4.5 mmol/L (3.5-5.1); SODIUM,NA 141 mmol/L (136-148)
[2020-11-29] MEDS ORDERED: Albuterol/Ipratropium 3.0-0.5 MG/3 ML Neb Soln NEB PRN (13:27)
[2020-11-29] MEDS ORDERED: Albuterol/Ipratropium 3.0-0.5 MG/3 ML Neb Soln NEB SCH (14:00)
[2020-11-29] MEDS: Albuterol/Ipratropium 4 GM Inhalation Spray INH SCH ×4 (15:42→23:59)
[2020-11-30] MEDS: Albuterol/Ipratropium 4 GM Inhalation Spray INH SCH ×6 (02:19→21:19)
[2020-11-30] MEDS: Cefepime 2 GM in Premix Bag 1 BAG IV SCH ×3 (04:31→18:23)
[2020-11-30 06:57] LABS: BLOOD UREA NITROGEN,BUN 30 mg/dL (7.0-18.0); CARBON DIOXIDE,CO2 29.8 mmol/L (21.0-32.0); CHLORIDE,CL 107 mmol/L (98-107); GLUCOSE RANDOM 191 mg/dL (74-106); POTASSIUM,K 4.7 mmol/L (3.5-5.1); SODIUM,NA 142 mmol/L (136-148)
[2020-11-30] MEDS: Insulin Aspart 100 Units/ML 3 ML Pen SUBCUT SCH ×3 (09:13→18:22)
[2020-11-30] MEDS: Levothyroxine 150 MCG Tab PO SCH (09:13)
[2020-11-30] MEDS: Cholecalciferol (Vitamin D3) 25 MCG Tab PO SCH (09:17)
[2020-11-30] MEDS: Furosemide 40 MG Tab PO SCH (09:17)
[2020-11-30] MEDS: Potassium Chloride 20 MEQ Tab.ER PO SCH (09:17)
[2020-11-30] MEDS: predniSONE 20 MG Tab PO SCH ×2 (09:17→20:08)
[2020-11-30] MEDS: Folic Acid 1 MG Tab PO SCH (09:17)
[2020-11-30] MEDS: Levofloxacin/Dextrose 5%-Water 750 MG in Premix Bag 1 BAG IV SCH (12:17)
--- NOTE | 2020-11-30 13:49 | PCM.PN ---
- General Info Date of Service: 11/30/20 Admission Dx/Problem (Free Text): Admission Diagnosis/Problem Admission Diagnosis/Problem Pneumonia Subjective Update: 80-year-old gentleman admitted for atypical pneumonia and pulmonary fibrosis, There were no overnight events, this morning states he feels he is breathing a little better. Denies any shortness of breath, chest pain, leg swelling. has been titrated down to 2.5 NC , participated in PT today did well, but desaturated to low 80s upon walking more than 20 feet, had to be put on 8 Lts Functional Status: Reports: Tolerating Diet, Ambulating, Urinating - Review of Systems General: Denies: Fever, Weakness, Fatigue Pulmonary: Reports: Shortness of Breath. Denies: Pleuritic Chest Pain, Cough Cardiovascular: Reports: Dyspnea on Exertion. Denies: Chest Pain, Palpitations Gastrointestinal: Denies: Abdominal Pain, Constipation, Decreased Appetite Genitourinary: Denies: Dysuria, Frequency, Burning Musculoskeletal: Denies: Neck Pain, Shoulder Pain, Arm Pain Skin: Denies: Cyanosis, Jaundice, Mottled - Patient Data Vitals - Most Recent: Last Vital Signs Temp 36.6 C 11/30/20 12:17 Pulse 80 11/30/20 12:17 Resp 17 11/30/20 12:17 BP 120/65 11/30/20 12:17 Pulse Ox 94 L 11/30/20 12:17 Weight - Most Recent: 119.023 kg I&O - Last 24 Hours: Intake & Output 11/29/20 11/30/20 11/30/20 22:59 06:59 14:59 Intake Total 1100 856 Output Total 1750 920 Balance -650 -64 Lab Results Last 24 Hours: Laboratory Results - last 24 hr 11/29/20 11/30/20 11/30/20 Range/Units 18:27 05:40 05:40 WBC 15.59 H (4.0-11.0) K/uL RBC 4.59 (4.50-5.90) M/uL Hgb 13.9 (13.0-17.0) g/dL Hct 44.3 (38.0-50.0) % MCV 96.5 (80.0-98.0) fL MCH 30.3 (27.0-32.0) pg MCHC 31.4 (31.0-37.0) g/dL RDW Std Deviation 53.0 (28.0-62.0) fl RDW Coeff of Sunny 15 (11.0-15.0) % Plt Count 188 (150-400) K/uL MPV 11.80 (7.40-12.00) fL Neut % (Auto) 87.0 H (48.0-80.0) % Lymph % (Auto) 6.2 L (16.0-40.0) % [place] % (Auto) 6.6 (0.0-15.0) % Eos % (Auto) 0.1 (0.0-7.0) % Baso % (Auto) 0.1 (0.0-1.5) % Neut # (Auto) 13.6 H (1.4-5.7) K/uL Lymph # (Auto) 1.0 (0.6-2.4) K/uL [place] # (Auto) 1.0 H (0.0-0.8) K/uL Eos # (Auto) 0.0 (0.0-0.7) K/uL Baso # (Auto) 0.0 (0.0-0.1) K/uL Nucleated RBC % 0.0 /100WBC Nucleated RBCs # 0 K/uL INR 2.11 Sodium (136-148) mmol/L Potassium (3.5-5.1) mmol/L Chloride (98-107) mmol/L Carbon Dioxide (21.0-32.0) mmol/L BUN (7.0-18.0) mg/dL Creatinine (0.8-1.3) mg/dL Est Cr Clr Drug Dosing mL/min Estimated GFR (MDRD) ml/min Glucose (74-106) mg/dL POC Glucose 145 H (60-110) mg/dL Calcium (8.5-10.1) mg/dL Phosphorus (2.6-4.7) mg/dL Magnesium (1.8-2.4) mg/dL 11/30/20 11/30/20 Range/Units 05:40 09:12 WBC (4.0-11.0) K/uL RBC (4.50-5.90) M/uL Hgb (13.0-17.0) g/dL Hct (38.0-50.0) % MCV (80.0-98.0) fL MCH (27.0-32.0) pg MCHC (31.0-37.0) g/dL RDW Std Deviation (28.0-62.0) fl RDW Coeff of Sunny (11.0-15.0) % Plt Count (150-400) K/uL MPV (7.40-12.00) fL Neut % (Auto) (48.0-80.0) % Lymph % (Auto) (16.0-40.0) % [place] % (Auto) (0.0-15.0) % Eos % (Auto) (0.0-7.0) % Baso % (Auto) (0.0-1.5) % Neut # (Auto) (1.4-5.7) K/uL Lymph # (Auto) (0.6-2.4) K/uL [place] # (Auto) (0.0-0.8) K/uL Eos # (Auto) (0.0-0.7) K/uL Baso # (Auto) (0.0-0.1) K/uL Nucleated RBC % /100WBC Nucleated RBCs # K/uL INR Sodium 142 (136-148) mmol/L Potassium 4.7 (3.5-5.1) mmol/L Chloride 107 (98-107) mmol/L Carbon Dioxide 29.8 (21.0-32.0) mmol/L BUN 30 H (7.0-18.0) mg/dL Creatinine 0.9 (0.8-1.3) mg/dL Est Cr Clr Drug Dosing 78.24 mL/min Estimated GFR (MDRD) > 60.0 ml/min Glucose 191 H (74-106) mg/dL POC Glucose 81 (60-110) mg/dL Calcium 7.9 L (8.5-10.1) mg/dL Phosphorus 2.6 (2.6-4.7) mg/dL Magnesium 2.4 (1.8-2.4) mg/dL Med Orders - Current: Current Medications Acetaminophen (Tylenol) 650 mg PO Q4H PRN PRN Reason: Pain (Mild 1-3)/fever Albuterol/Ipratropium (Duoneb 3.0-0.5 Mg/3 Ml) 3 ml NEB Q4HRRT PRN PRN Reason: Dyspnea Albuterol/Ipratropium (Combivent Respimat) 0 gm INH Q4H [facility] Last Admin: 11/30/20 09:18 Dose: 1 inhalation Documented by: Cholecalciferol (Vitamin D3) 25 mcg PO DAILY [facility] Last Admin: 11/30/20 09:17 Dose: 25 mcg Documented by: Dextrose/Water (Dextrose 50% In Water) 50 ml IV ASDIRECTED PRN PRN Reason: Hypoglycemia Folic Acid (Folic Acid) 1 mg PO DAILY [facility] Last Admin: 11/30/20 09:17 Dose: 1 mg Documented by: Furosemide (Lasix) 40 mg PO DAILY [facility] Last Admin: 11/30/20 09:17 Dose: 40 mg Documented by: Glucagon (Glucagen) 1 mg IM ASDIRECTED PRN PRN Reason: Hypoglycemia Guaifenesin/Dextromethorphan (Robitussin Dm) 10 ml PO Q4H PRN PRN Reason: Cough Cefepime HCl 2 gm/ Premix 50 mls @ 100 mls/hr IV Q8H [facility] Last Admin: 11/30/20 11:40 Dose: 100 mls/hr Documented by: Levofloxacin/Dextrose 750 mg/ (Premix) 150 mls @ 100 mls/hr IV Q24H [facility] Last Admin: 11/30/20 12:17 Dose: 100 mls/hr Documented by: Insulin Aspart (Novolog) 0 unit SUBCUT TIDAC [facility]; Protocol Last Admin: 11/30/20 09:13 Dose: Not Given Documented by: Levothyroxine Sodium (Levothyroxine) 150 mcg PO ACBRK [facility] Last Admin: 11/30/20 09:13 Dose: 150 mcg Documented by: Potassium Chloride (Klor-Con M20) 20 meq PO DAILY [facility] Last Admin: 11/30/20 09:17 Dose: 20 meq Documented by: Prednisone (Prednisone) 40 mg PO BID [facility] Last Admin: 11/30/20 09:17 Dose: 40 mg Documented by: Sodium Chloride (Saline Flush) 10 ml FLUSH ASDIRECTED PRN PRN Reason: Keep Vein Open Last Admin: 11/17/20 12:58 Dose: 10 ml Documented by: Sodium Chloride (Saline Flush) 2.5 ml FLUSH ASDIRECTED PRN PRN Reason: Keep Vein Open Last Admin: 11/17/20 12:58 Dose: 2.5 ml Documented by: Warfarin Sodium (Coumadin Ask) 1 each PO DAILY@1400 [facility] Last Admin: 11/29/20 13:22 Dose: Not Given Documented by: Discontinued Medications Albuterol/Ipratropium (Duoneb 3.0-0.5 Mg/3 Ml) 3 ml NEB Q4HRRT PRN PRN Reason: Shortness Of Breath/wheezing Albuterol/Ipratropium (Combivent Respimat) 0 gm INH Q4H PRN PRN Reason: Dyspnea Albuterol/Ipratropium (Combivent Respimat) 0 gm INH Q4H [facility] Last Admin: 11/29/20 13:20 Dose: 1 inhalation Documented by: Albuterol/Ipratropium (Combivent Respimat) 0 gm INH Q4H [facility] Albuterol/Ipratropium (Duoneb 3.0-0.5 Mg/3 Ml) 3 ml NEB Q4HRRT [facility] Enoxaparin Sodium (Lovenox) 40 mg SUBCUT Q12HR [facility] Last Admin: 11/18/20 20:46 Dose: 40 mg Documented by: Folic Acid (Folic Acid) 1 mg PO ASDIRECTED [facility] Furosemide (Lasix) 40 mg IVPUSH NOW ONE Stop: 11/17/20 17:21 Last Admin: 11/17/20 18:05 Dose: 40 mg Documented by: Vancomycin HCl 1 gm/ Sodium (Chloride) 250 mls @ 166 mls/hr IV ONETIME ONE Stop: 11/17/20 17:12 Last Admin: 11/17/20 15:48 Dose: 166 mls/hr Documented by: Ceftriaxone Sodium 1 gm/ (Sodium Chloride) 50 mls @ 100 mls/hr IV Q24H [facility] Azithromycin 500 mg/ Sodium (Chloride) 250 mls @ 250 mls/hr IV DAILY [facility] Last Admin: 11/17/20 18:52 Dose: 250 mls/hr Documented by: Ceftriaxone Sodium/Dextrose 1 (gm/ Premix) 50 mls @ 100 mls/hr IV Q24H [facility] Last Admin: 11/19/20 17:02 Dose: 100 mls/hr Documented by: Azithromycin 500 mg/ Sodium (Chloride) 250 mls @ 250 mls/hr IV DAILY@1900 [facility] Last Admin: 11/19/20 18:58 Dose: 250 mls/hr Documented by: Levofloxacin/Dextrose 750 mg/ (Premix) 150 mls @ 100 mls/hr IV Q24H [facility] Last Admin: 11/26/20 11:15 Dose: 100 mls/hr Documented by: Levofloxacin/Dextrose (Levaquin In D5w 750 Mg/150 Ml) Confirm Administered Dose 150 mls @ as directed IV .STK-MED ONE Stop: 11/25/20 10:44 Last Admin: 11/25/20 12:00 Dose: Not Given Documented by: Iopamidol (Isovue Multipack-370 (76%)) 100 ml IVPUSH ONETIME ONE Stop: 11/17/20 14:50 Last Admin: 11/17/20 14:52 Dose: 100 ml Documented by: Methylprednisolone Sodium Succinate (Solu-Medrol) 125 mg IVPUSH DAILY [facility] Methylprednisolone Sodium Succinate (Solu-Medrol) 125 mg IVPUSH DAILY [facility] Last Admin: 11/27/20 08:59 Dose: 125 mg Documented by: Warfarin Sodium (Coumadin) 7.5 mg PO ONETIME ONE Stop: 11/17/20 18:31 Last Admin: 11/17/20 18:58 Dose: 7.5 mg Documented by: Warfarin Sodium (Coumadin) 5 mg PO 11/18/20@1400 [facility] Stop: 11/18/20 14:01 Last Admin: 11/18/20 15:00 Dose: 5 mg Documented by: Warfarin Sodium (Coumadin) 5 mg PO 11/18/20@1400 [facility] Stop: 11/18/20 14:01 Last Admin: 11/18/20 15:00 Dose: Not Given Documented by: Warfarin Sodium (Coumadin) 2 mg PO 11/19/20@1400 [facility] Stop: 11/19/20 14:01 Last Admin: 11/19/20 13:48 Dose: 2 mg Documented by: Warfarin Sodium (Coumadin) 2.5 mg PO DAILY@1400 [facility] Stop: 11/22/20 14:01 Last Admin: 11/22/20 13:57 Dose: 2.5 mg Documented by: Warfarin Sodium (Coumadin) 4 mg PO DAILY@1400 [facility] Stop: 11/23/20 14:01 Last Admin: 11/23/20 13:45 Dose: 4 mg Documented by: Warfarin Sodium (Coumadin) 2.5 mg PO DAILY@1400 [facility] Stop: 11/24/20 14:01 Last Admin: 11/24/20 14:50 Dose: 2.5 mg Documented by: Warfarin Sodium (Coumadin) 2 mg PO DAILY@1530 [facility] Stop: 11/25/20 15:31 Last Admin: 11/25/20 15:40 Dose: 2 mg Documented by: Warfarin Sodium (Coumadin) 2 mg PO 11/26/20@1400 [facility] Stop: 11/26/20 16:00 Last Admin: 11/26/20 14:29 Dose: 2 mg Documented by: Warfarin Sodium (Coumadin) 2.5 mg PO 11/27/20@1430 [facility] Stop: 11/27/20 15:30 Last Admin: 11/27/20 14:56 Dose: 2.5 mg Documented by: Warfarin Sodium (Coumadin) 3 mg PO 11/28/20@1400 [facility] Stop: 11/28/20 15:00 Last Admin: 11/28/20 14:45 Dose: 3 mg Documented by: Warfarin Sodium (Coumadin) 3 mg PO 11/29/20@1400 [facility] Stop: 11/29/20 14:01 Last Admin: 11/29/20 13:50 Dose: 3 mg Documented by: - Exam Quality Assessment: Supplemental Oxygen General: Alert, Oriented Lungs: Clear to Auscultation, Normal Respiratory Effort Cardiovascular: Regular Rate, Regular Rhythm GI/Abdominal Exam: Normal Bowel Sounds, Soft Extremities: Normal Inspection, Normal Range of Motion Sepsis Event Note - Evaluation Sepsis Screening Result: No Definite Risk - Focused Exam Vital Signs: Vital Signs Temp Pulse Resp BP BP Pulse Ox 11/30/20 12:17 36.6 C 80 17 120/65 94 L 11/30/20 09:19 36.4 C 69 18 115/73 90 L 11/30/20 04:35 36.9 C 71 16 138/51 L 94 L - Problem List & Annotations (1) Atypical pneumonia SNOMED Code(s): 141160407 Code(s): J18.9 - PNEUMONIA, UNSPECIFIED ORGANISM Status: Acute Current Visit: Yes (2) Pulmonary fibrosis SNOMED Code(s): 00288116 Code(s): J84.10 - PULMONARY FIBROSIS, UNSPECIFIED Status: Acute Current Visit: Yes (3) Emphysema of lung SNOMED Code(s): 24310779 Code(s): J43.9 - EMPHYSEMA, UNSPECIFIED Status: Acute Current Visit: Yes - Problem List Review Problem List Initiated/Reviewed/Updated: Yes - My Orders Last 24 Hours: My Active Orders 11/29/20 14:00 Albuterol/Ipratropium [Combivent Respimat] 0 gm INH Q4H 12/01/20 05:11 BMP [BASIC METABOLIC PANEL,BMP] [CHEM] AM CBC WITH AUTO DIFF [HEME] AM MAGNESIUM [CHEM] AM PHOSPHORUS [CHEM] AM 12/02/20 05:11 BMP [BASIC METABOLIC PANEL,BMP] [CHEM] AM CBC WITH AUTO DIFF [HEME] AM MAGNESIUM [CHEM] AM PHOSPHORUS [CHEM] AM - Plan Plan:: Patient is an 80-year-old gentleman admitted for atypical pneumonia and pulmonary fibrosis. 1. Atypical pneumonia: mild improvement again in leukocytosis 13.3 today Requiring less oxygen , continue to wean as tolerated, improved crackles and rhonchi in the left lower lobe on physical examination. Continue cefepime, Levaquin, prednisone 2. Has medical history of recurrent DVTs: continue to dose Coumadin daily per pharmacy recommendations, check INR 3. Past medical history of hypothyroidism, fluid retention therefore on Lasix, resumed all home medications
[2020-12-01] MEDS: Albuterol/Ipratropium 4 GM Inhalation Spray INH SCH ×4 (01:19→13:34)
[2020-12-01] MEDS: Cefepime 2 GM in Premix Bag 1 BAG IV SCH ×2 (04:49→10:42)
[2020-12-01] MEDS: Levothyroxine 150 MCG Tab PO SCH ×2 (06:24→06:50)
[2020-12-01 07:03] LABS: BLOOD UREA NITROGEN,BUN 27 mg/dL (7.0-18.0); CHLORIDE,CL 106 mmol/L (98-107); GLUCOSE RANDOM 159 mg/dL (74-106); POTASSIUM,K 4.9 mmol/L (3.5-5.1); SODIUM,NA 141 mmol/L (136-148)
[2020-12-01] MEDS: Insulin Aspart 100 Units/ML 3 ML Pen SUBCUT SCH ×2 (09:15→11:55)
[2020-12-01] MEDS: Potassium Chloride 20 MEQ Tab.ER PO SCH (09:16)
[2020-12-01] MEDS: Folic Acid 1 MG Tab PO SCH (09:16)
[2020-12-01] MEDS: Furosemide 40 MG Tab PO SCH (09:16)
[2020-12-01] MEDS: Cholecalciferol (Vitamin D3) 25 MCG Tab PO SCH (09:16)
[2020-12-01] MEDS: predniSONE 20 MG Tab PO SCH (10:29)
--- NOTE | 2020-12-01 10:58 | PCM.PN ---
- Patient Data Vitals - Most Recent: Last Vital Signs Temp 36.5 C 12/01/20 09:30 Pulse 70 12/01/20 09:30 Resp 18 12/01/20 09:30 BP 124/59 L 12/01/20 09:30 Pulse Ox 91 L 12/01/20 10:44 Weight - Most Recent: 119.023 kg I&O - Last 24 Hours: Intake & Output 11/30/20 12/01/20 12/01/20 22:59 06:59 14:59 Intake Total 850 Output Total 680 Balance 170 Lab Results Last 24 Hours: Laboratory Results - last 24 hr 11/30/20 11/30/20 12/01/20 Range/Units 13:42 18:19 05:45 WBC (4.0-11.0) K/uL RBC (4.50-5.90) M/uL Hgb (13.0-17.0) g/dL Hct (38.0-50.0) % MCV (80.0-98.0) fL MCH (27.0-32.0) pg MCHC (31.0-37.0) g/dL RDW Std Deviation (28.0-62.0) fl RDW Coeff of Sunny (11.0-15.0) % Plt Count (150-400) K/uL MPV (7.40-12.00) fL Neut % (Auto) (48.0-80.0) % Lymph % (Auto) (16.0-40.0) % [place] % (Auto) (0.0-15.0) % Eos % (Auto) (0.0-7.0) % Baso % (Auto) (0.0-1.5) % Neut # (Auto) (1.4-5.7) K/uL Lymph # (Auto) (0.6-2.4) K/uL [place] # (Auto) (0.0-0.8) K/uL Eos # (Auto) (0.0-0.7) K/uL Baso # (Auto) (0.0-0.1) K/uL Nucleated RBC % /100WBC Nucleated RBCs # K/uL INR 2.06 Sodium (136-148) mmol/L Potassium (3.5-5.1) mmol/L Chloride (98-107) mmol/L Carbon Dioxide (21.0-32.0) mmol/L BUN (7.0-18.0) mg/dL Creatinine (0.8-1.3) mg/dL Est Cr Clr Drug Dosing mL/min Estimated GFR (MDRD) ml/min Glucose (74-106) mg/dL POC Glucose 125 H 136 H (60-110) mg/dL Calcium (8.5-10.1) mg/dL Phosphorus (2.6-4.7) mg/dL Magnesium (1.8-2.4) mg/dL 12/01/20 12/01/20 12/01/20 Range/Units 05:45 05:45 09:15 WBC 14.40 H (4.0-11.0) K/uL RBC 4.61 (4.50-5.90) M/uL Hgb 14.2 (13.0-17.0) g/dL Hct 44.6 (38.0-50.0) % MCV 96.7 (80.0-98.0) fL MCH 30.8 (27.0-32.0) pg MCHC 31.8 (31.0-37.0) g/dL RDW Std Deviation 53.5 (28.0-62.0) fl RDW Coeff of Sunny 15 (11.0-15.0) % Plt Count 172 (150-400) K/uL MPV 11.40 (7.40-12.00) fL Neut % (Auto) 85.7 H (48.0-80.0) % Lymph % (Auto) 5.0 L (16.0-40.0) % [place] % (Auto) 8.9 (0.0-15.0) % Eos % (Auto) 0.3 (0.0-7.0) % Baso % (Auto) 0.1 (0.0-1.5) % Neut # (Auto) 12.4 H (1.4-5.7) K/uL Lymph # (Auto) 0.7 (0.6-2.4) K/uL [place] # (Auto) 1.3 H (0.0-0.8) K/uL Eos # (Auto) 0.0 (0.0-0.7) K/uL Baso # (Auto) 0.0 (0.0-0.1) K/uL Nucleated RBC % 0.0 /100WBC Nucleated RBCs # 0 K/uL INR Sodium 141 (136-148) mmol/L Potassium 4.9 (3.5-5.1) mmol/L Chloride 106 (98-107) mmol/L Carbon Dioxide 31.0 (21.0-32.0) mmol/L BUN 27 H (7.0-18.0) mg/dL Creatinine 0.9 (0.8-1.3) mg/dL Est Cr Clr Drug Dosing 78.24 mL/min Estimated GFR (MDRD) > 60.0 ml/min Glucose 159 H (74-106) mg/dL POC Glucose 80 (60-110) mg/dL Calcium 8.0 L (8.5-10.1) mg/dL Phosphorus 2.9 (2.6-4.7) mg/dL Magnesium 2.3 (1.8-2.4) mg/dL Med Orders - Current: Current Medications Acetaminophen (Tylenol) 650 mg PO Q4H PRN PRN Reason: Pain (Mild 1-3)/fever Albuterol/Ipratropium (Duoneb 3.0-0.5 Mg/3 Ml) 3 ml NEB Q4HRRT PRN PRN Reason: Dyspnea Albuterol/Ipratropium (Combivent Respimat) 0 gm INH Q4H [facility] Last Admin: 12/01/20 09:26 Dose: 1 inhalation Documented by: Cholecalciferol (Vitamin D3) 25 mcg PO DAILY [facility] Last Admin: 12/01/20 09:16 Dose: 25 mcg Documented by: Dextrose/Water (Dextrose 50% In Water) 50 ml IV ASDIRECTED PRN PRN Reason: Hypoglycemia Folic Acid (Folic Acid) 1 mg PO DAILY [facility] Last Admin: 12/01/20 09:16 Dose: 1 mg Documented by: Furosemide (Lasix) 40 mg PO DAILY [facility] Last Admin: 12/01/20 09:16 Dose: 40 mg Documented by: Glucagon (Glucagen) 1 mg IM ASDIRECTED PRN PRN Reason: Hypoglycemia Guaifenesin/Dextromethorphan (Robitussin Dm) 10 ml PO Q4H PRN PRN Reason: Cough Cefepime HCl 2 gm/ Premix 50 mls @ 100 mls/hr IV Q8H [facility] Last Admin: 12/01/20 10:42 Dose: 100 mls/hr Documented by: Levofloxacin/Dextrose 750 mg/ (Premix) 150 mls @ 100 mls/hr IV Q24H [facility] Last Admin: 11/30/20 12:17 Dose: 100 mls/hr Documented by: Insulin Aspart (Novolog) 0 unit SUBCUT TIDAC [facility]; Protocol Last Admin: 12/01/20 09:15 Dose: Not Given Documented by: Levothyroxine Sodium (Levothyroxine) 150 mcg PO ACBRK [facility] Last Admin: 12/01/20 06:50 Dose: Not Given Documented by: Potassium Chloride (Klor-Con M20) 20 meq PO DAILY [facility] Last Admin: 12/01/20 09:16 Dose: 20 meq Documented by: Prednisone (Prednisone) 40 mg PO BID [facility] Last Admin: 12/01/20 10:29 Dose: 40 mg Documented by: Sodium Chloride (Saline Flush) 10 ml FLUSH ASDIRECTED PRN PRN Reason: Keep Vein Open Last Admin: 11/17/20 12:58 Dose: 10 ml Documented by: Sodium Chloride (Saline Flush) 2.5 ml FLUSH ASDIRECTED PRN PRN Reason: Keep Vein Open Last Admin: 11/17/20 12:58 Dose: 2.5 ml Documented by: Warfarin Sodium (Coumadin Ask) 1 each PO DAILY@1400 [facility] Last Admin: 11/30/20 14:53 Dose: Not Given Documented by: Discontinued Medications Albuterol/Ipratropium (Duoneb 3.0-0.5 Mg/3 Ml) 3 ml NEB Q4HRRT PRN PRN Reason: Shortness Of Breath/wheezing Albuterol/Ipratropium (Combivent Respimat) 0 gm INH Q4H PRN PRN Reason: Dyspnea Albuterol/Ipratropium (Combivent Respimat) 0 gm INH Q4H [facility] Last Admin: 11/29/20 13:20 Dose: 1 inhalation Documented by: Albuterol/Ipratropium (Combivent Respimat) 0 gm INH Q4H [facility] Albuterol/Ipratropium (Duoneb 3.0-0.5 Mg/3 Ml) 3 ml NEB Q4HRRT [facility] Enoxaparin Sodium (Lovenox) 40 mg SUBCUT Q12HR [facility] Last Admin: 11/18/20 20:46 Dose: 40 mg Documented by: Folic Acid (Folic Acid) 1 mg PO ASDIRECTED [facility] Furosemide (Lasix) 40 mg IVPUSH NOW ONE Stop: 11/17/20 17:21 Last Admin: 11/17/20 18:05 Dose: 40 mg Documented by: Vancomycin HCl 1 gm/ Sodium (Chloride) 250 mls @ 166 mls/hr IV ONETIME ONE Stop: 11/17/20 17:12 Last Admin: 11/17/20 15:48 Dose: 166 mls/hr Documented by: Ceftriaxone Sodium 1 gm/ (Sodium Chloride) 50 mls @ 100 mls/hr IV Q24H [facility] Azithromycin 500 mg/ Sodium (Chloride) 250 mls @ 250 mls/hr IV DAILY [facility] Last Admin: 11/17/20 18:52 Dose: 250 mls/hr Documented by: Ceftriaxone Sodium/Dextrose 1 (gm/ Premix) 50 mls @ 100 mls/hr IV Q24H [facility] Last Admin: 11/19/20 17:02 Dose: 100 mls/hr Documented by: Azithromycin 500 mg/ Sodium (Chloride) 250 mls @ 250 mls/hr IV DAILY@1900 [facility] Last Admin: 11/19/20 18:58 Dose: 250 mls/hr Documented by: Levofloxacin/Dextrose 750 mg/ (Premix) 150 mls @ 100 mls/hr IV Q24H [facility] Last Admin: 11/26/20 11:15 Dose: 100 mls/hr Documented by: Levofloxacin/Dextrose (Levaquin In D5w 750 Mg/150 Ml) Confirm Administered Dose 150 mls @ as directed IV .STK-MED ONE Stop: 11/25/20 10:44 Last Admin: 11/25/20 12:00 Dose: Not Given Documented by: Iopamidol (Isovue Multipack-370 (76%)) 100 ml IVPUSH ONETIME ONE Stop: 11/17/20 14:50 Last Admin: 11/17/20 14:52 Dose: 100 ml Documented by: Methylprednisolone Sodium Succinate (Solu-Medrol) 125 mg IVPUSH DAILY [facility] Methylprednisolone Sodium Succinate (Solu-Medrol) 125 mg IVPUSH DAILY [facility] Last Admin: 11/27/20 08:59 Dose: 125 mg Documented by: Warfarin Sodium (Coumadin) 7.5 mg PO ONETIME ONE Stop: 11/17/20 18:31 Last Admin: 11/17/20 18:58 Dose: 7.5 mg Documented by: Warfarin Sodium (Coumadin) 5 mg PO 11/18/20@1400 [facility] Stop: 11/18/20 14:01 Last Admin: 11/18/20 15:00 Dose: 5 mg Documented by: Warfarin Sodium (Coumadin) 5 mg PO 11/18/20@1400 [facility] Stop: 11/18/20 14:01 Last Admin: 11/18/20 15:00 Dose: Not Given Documented by: Warfarin Sodium (Coumadin) 2 mg PO 11/19/20@1400 [facility] Stop: 11/19/20 14:01 Last Admin: 11/19/20 13:48 Dose: 2 mg Documented by: Warfarin Sodium (Coumadin) 2.5 mg PO DAILY@1400 ONE Stop: 11/22/20 14:01 Last Admin: 11/22/20 13:57 Dose: 2.5 mg Documented by: Warfarin Sodium (Coumadin) 4 mg PO DAILY@1400 ONE Stop: 11/23/20 14:01 Last Admin: 11/23/20 13:45 Dose: 4 mg Documented by: Warfarin Sodium (Coumadin) 2.5 mg PO DAILY@1400 ONE Stop: 11/24/20 14:01 Last Admin: 11/24/20 14:50 Dose: 2.5 mg Documented by: Warfarin Sodium (Coumadin) 2 mg PO DAILY@1530 ONE Stop: 11/25/20 15:31 Last Admin: 11/25/20 15:40 Dose: 2 mg Documented by: Warfarin Sodium (Coumadin) 2 mg PO 11/26/20@1400 [facility] Stop: 11/26/20 16:00 Last Admin: 11/26/20 14:29 Dose: 2 mg Documented by: Warfarin Sodium (Coumadin) 2.5 mg PO 11/27/20@1430 [facility] Stop: 11/27/20 15:30 Last Admin: 11/27/20 14:56 Dose: 2.5 mg Documented by: Warfarin Sodium (Coumadin) 3 mg PO 11/28/20@1400 [facility] Stop: 11/28/20 15:00 Last Admin: 11/28/20 14:45 Dose: 3 mg Documented by: Warfarin Sodium (Coumadin) 3 mg PO 11/29/20@1400 [facility] Stop: 11/29/20 14:01 Last Admin: 11/29/20 13:50 Dose: 3 mg Documented by: Warfarin Sodium (Coumadin) 3 mg PO 11/30/20@1400 [facility] Stop: 11/30/20 16:00 Last Admin: 11/30/20 14:52 Dose: 3 mg Documented by: Sepsis Event Note - Evaluation Sepsis Screening Result: No Definite Risk - Focused Exam Vital Signs: Vital Signs Temp Pulse Resp BP Pulse Ox Pulse Ox 12/01/20 10:44 91 L 12/01/20 09:30 36.5 C 70 18 124/59 L 90 L 12/01/20 04:45 35.9 C L 61 16 129/60 94 L 11/30/20 23:57 36.4 C 68 18 135/65 93 L - Problem List & Annotations (1) Atypical pneumonia SNOMED Code(s): 119257925 Code(s): J18.9 - PNEUMONIA, UNSPECIFIED ORGANISM Status: Acute Current Visit: Yes (2) Pulmonary fibrosis SNOMED Code(s): 09204927 Code(s): J84.10 - PULMONARY FIBROSIS, UNSPECIFIED Status: Acute Current Visit: Yes (3) Emphysema of lung SNOMED Code(s): 11974641 Code(s): J43.9 - EMPHYSEMA, UNSPECIFIED Status: Acute Current Visit: Yes (4) Ambulatory dysfunction SNOMED Code(s): 883598957 Code(s): R26.2 - DIFFICULTY IN WALKING, NOT ELSEWHERE CLASSIFIED Status: Acute Current Visit: Yes - Problem List Review Problem List Initiated/Reviewed/Updated: Yes - My Orders Last 24 Hours: My Active Orders 12/02/20 05:11 BMP [BASIC METABOLIC PANEL,BMP] [CHEM] AM CBC WITH AUTO DIFF [HEME] AM MAGNESIUM [CHEM] AM PHOSPHORUS [CHEM] AM - Plan Plan:: Patient is an 80-year-old gentleman admitted for atypical pneumonia and pulmonary fibrosis. 1. Atypical pneumonia: mild improvement again in leukocytosis 13.3 today Requiring less oxygen , continue to wean as tolerated, improved crackles and rhonchi in the left lower lobe on physical examination. Continue cefepime, Levaquin, prednisone 2. Has medical history of recurrent DVTs: continue to dose Coumadin daily per pharmacy recommendations, check INR 3. Past medical history of hypothyroidism, fluid retention therefore on Lasix, resumed all home medications PT assessed the patient , has been doing well, recommenced using walker with a seat for ambulating longer distances so he can rest in between
--- NOTE | 2020-12-01 11:16 | PCM.DCSUM1 ---
Discharge Summary - Hospital Course Diagnosis: Stroke: No - Discharge Data Discharge Disposition: Home, W Home Health Agency 06 Condition: Stable - Referral to Home Health Date of Face to Face Encounter: 12/02/20 Reason for Homebound Status: they are able to ambulate less than 20 feet before becoming short of breath, needing for rest break Primary Care Physician: PCP Not In Area Skilled Need: RN to assess recent exacerbation of COPD, PT for strengthing from recent hospital admission - Discharge Diagnosis/Problem(s) (1) Atypical pneumonia SNOMED Code(s): 754705014 ICD Code: J18.9 - PNEUMONIA, UNSPECIFIED ORGANISM Status: Acute Current Visit: Yes (2) Pulmonary fibrosis SNOMED Code(s): 68993498 ICD Code: J84.10 - PULMONARY FIBROSIS, UNSPECIFIED Status: Acute Current Visit: Yes (3) Emphysema of lung SNOMED Code(s): 74142967 ICD Code: J43.9 - EMPHYSEMA, UNSPECIFIED Status: Acute Current Visit: Yes (4) Ambulatory dysfunction SNOMED Code(s): 119377420 ICD Code: R26.2 - DIFFICULTY IN WALKING, NOT ELSEWHERE CLASSIFIED Status: Acute Current Visit: Yes - Patient Summary/Data Consults: Consultations 11/27/20 13:17 Consult to Physical Therapy [PT Evaluation and Treatment] [CONS] Routine 12/01/20 11:02 Consult to Home Health [CONS] Routine - Discharge Plan *PRESCRIPTION DRUG MONITORING PROGRAM REVIEWED*: No *COPY OF PRESCRIPTION DRUG MONITORING REPORT IN PATIENT RONALDO: No Prescriptions/Med Rec: Albuterol/Ipratropium [Combivent Respimat] 1 inhaler INH Q4H #1 inhaler levoFLOXacin [Levaquin] 750 mg PO DAILY #5 tab predniSONE [Prednisone] 10 mg PO DAILY #23 tablet Dextromethorphan/guaiFENesin [Robitussin DM] 10 ml PO Q4H PRN #1 bottle PRN Reason: Cough Cholecalciferol (Vitamin D3) [Vitamin D3] 25 mcg PO DAILY #30 tablet Home Medications: Home Meds Folic Acid 1 mg PO DAILY 11/17/20 [History] Furosemide [Lasix] 40 mg PO DAILY 11/17/20 [History] Levothyroxine 150 mcg PO DAILY 11/17/20 [History] Methotrexate 5 tab PO WEEKLY 11/17/20 [History] Potassium Chloride [Klor-Con M20] 20 meq PO DAILY 11/17/20 [History] Warfarin [Coumadin] 4 mg PO SUMOTUWETHSA 11/17/20 [History] Warfarin [Coumadin] 5 mg PO FR 11/17/20 [History] Albuterol/Ipratropium [Combivent Respimat] 1 inhaler INH Q4H #1 inhaler 12/01/20 [Rx] Cholecalciferol (Vitamin D3) [Vitamin D3] 25 mcg PO DAILY #30 tablet 12/01/20 [Rx] Dextromethorphan/guaiFENesin [Robitussin DM] 10 ml PO Q4H PRN #1 bottle 12/01/20 [Rx] levoFLOXacin [Levaquin] 750 mg PO DAILY #5 tab 12/01/20 [Rx] predniSONE [Prednisone] 10 mg PO DAILY #23 tablet 12/01/20 [Rx] Patient Handouts: Community-Acquired Pneumonia, Adult, [id number] Referrals: Fer Garces NP [Ordering Only Provider] - 12/04/20 9:45 am - Patient Data Vitals - Most Recent: Last Vital Signs Temp 36.5 C 12/01/20 09:30 Pulse 70 12/01/20 09:30 Resp 18 12/01/20 09:30 BP 124/59 L 12/01/20 09:30 Pulse Ox 91 L 12/01/20 10:44 Weight - Most Recent: 119.023 kg I&O - Last 24 hours: Intake & Output 11/30/20 12/01/20 12/01/20 22:59 06:59 14:59 Intake Total 850 Output Total 680 Balance 170 Lab Results - Last 24 hrs: Laboratory Results - last 24 hr 11/30/20 11/30/20 12/01/20 Range/Units 13:42 18:19 05:45 WBC (4.0-11.0) K/uL RBC (4.50-5.90) M/uL Hgb (13.0-17.0) g/dL Hct (38.0-50.0) % MCV (80.0-98.0) fL MCH (27.0-32.0) pg MCHC (31.0-37.0) g/dL RDW Std Deviation (28.0-62.0) fl RDW Coeff of Sunny (11.0-15.0) % Plt Count (150-400) K/uL MPV (7.40-12.00) fL Neut % (Auto) (48.0-80.0) % Lymph % (Auto) (16.0-40.0) % [place] % (Auto) (0.0-15.0) % Eos % (Auto) (0.0-7.0) % Baso % (Auto) (0.0-1.5) % Neut # (Auto) (1.4-5.7) K/uL Lymph # (Auto) (0.6-2.4) K/uL [place] # (Auto) (0.0-0.8) K/uL Eos # (Auto) (0.0-0.7) K/uL Baso # (Auto) (0.0-0.1) K/uL Nucleated RBC % /100WBC Nucleated RBCs # K/uL INR 2.06 Sodium (136-148) mmol/L Potassium (3.5-5.1) mmol/L Chloride (98-107) mmol/L Carbon Dioxide (21.0-32.0) mmol/L BUN (7.0-18.0) mg/dL Creatinine (0.8-1.3) mg/dL Est Cr Clr Drug Dosing mL/min Estimated GFR (MDRD) ml/min Glucose (74-106) mg/dL POC Glucose 125 H 136 H (60-110) mg/dL Calcium (8.5-10.1) mg/dL Phosphorus (2.6-4.7) mg/dL Magnesium (1.8-2.4) mg/dL 12/01/20 12/01/20 12/01/20 Range/Units 05:45 05:45 09:15 WBC 14.40 H (4.0-11.0) K/uL RBC 4.61 (4.50-5.90) M/uL Hgb 14.2 (13.0-17.0) g/dL Hct 44.6 (38.0-50.0) % MCV 96.7 (80.0-98.0) fL MCH 30.8 (27.0-32.0) pg MCHC 31.8 (31.0-37.0) g/dL RDW Std Deviation 53.5 (28.0-62.0) fl RDW Coeff of Sunny 15 (11.0-15.0) % Plt Count 172 (150-400) K/uL MPV 11.40 (7.40-12.00) fL Neut % (Auto) 85.7 H (48.0-80.0) % Lymph % (Auto) 5.0 L (16.0-40.0) % [place] % (Auto) 8.9 (0.0-15.0) % Eos % (Auto) 0.3 (0.0-7.0) % Baso % (Auto) 0.1 (0.0-1.5) % Neut # (Auto) 12.4 H (1.4-5.7) K/uL Lymph # (Auto) 0.7 (0.6-2.4) K/uL [place] # (Auto) 1.3 H (0.0-0.8) K/uL Eos # (Auto) 0.0 (0.0-0.7) K/uL Baso # (Auto) 0.0 (0.0-0.1) K/uL Nucleated RBC % 0.0 /100WBC Nucleated RBCs # 0 K/uL INR Sodium 141 (136-148) mmol/L Potassium 4.9 (3.5-5.1) mmol/L Chloride 106 (98-107) mmol/L Carbon Dioxide 31.0 (21.0-32.0) mmol/L BUN 27 H (7.0-18.0) mg/dL Creatinine 0.9 (0.8-1.3) mg/dL Est Cr Clr Drug Dosing 78.24 mL/min Estimated GFR (MDRD) > 60.0 ml/min Glucose 159 H (74-106) mg/dL POC Glucose 80 (60-110) mg/dL Calcium 8.0 L (8.5-10.1) mg/dL Phosphorus 2.9 (2.6-4.7) mg/dL Magnesium 2.3 (1.8-2.4) mg/dL Med Orders - Current: Current Medications Acetaminophen (Tylenol) 650 mg PO Q4H PRN PRN Reason: Pain (Mild 1-3)/fever Albuterol/Ipratropium (Duoneb 3.0-0.5 Mg/3 Ml) 3 ml NEB Q4HRRT PRN PRN Reason: Dyspnea Albuterol/Ipratropium (Combivent Respimat) 0 gm INH Q4H [facility] Last Admin: 12/01/20 09:26 Dose: 1 inhalation Documented by: Cholecalciferol (Vitamin D3) 25 mcg PO DAILY [facility] Last Admin: 12/01/20 09:16 Dose: 25 mcg Documented by: Dextrose/Water (Dextrose 50% In Water) 50 ml IV ASDIRECTED PRN PRN Reason: Hypoglycemia Folic Acid (Folic Acid) 1 mg PO DAILY [facility] Last Admin: 12/01/20 09:16 Dose: 1 mg Documented by: Furosemide (Lasix) 40 mg PO DAILY [facility] Last Admin: 12/01/20 09:16 Dose: 40 mg Documented by: Glucagon (Glucagen) 1 mg IM ASDIRECTED PRN PRN Reason: Hypoglycemia Guaifenesin/Dextromethorphan (Robitussin Dm) 10 ml PO Q4H PRN PRN Reason: Cough Cefepime HCl 2 gm/ Premix 50 mls @ 100 mls/hr IV Q8H [facility] Last Admin: 12/01/20 10:42 Dose: 100 mls/hr Documented by: Levofloxacin/Dextrose 750 mg/ (Premix) 150 mls @ 100 mls/hr IV Q24H [facility] Last Admin: 11/30/20 12:17 Dose: 100 mls/hr Documented by: Insulin Aspart (Novolog) 0 unit SUBCUT TIDAC [facility]; Protocol Last Admin: 12/01/20 09:15 Dose: Not Given Documented by: Levothyroxine Sodium (Levothyroxine) 150 mcg PO ACBRK [facility] Last Admin: 12/01/20 06:50 Dose: Not Given Documented by: Potassium Chloride (Klor-Con M20) 20 meq PO DAILY [facility] Last Admin: 12/01/20 09:16 Dose: 20 meq Documented by: Prednisone (Prednisone) 40 mg PO BID [facility] Last Admin: 12/01/20 10:29 Dose: 40 mg Documented by: Sodium Chloride (Saline Flush) 10 ml FLUSH ASDIRECTED PRN PRN Reason: Keep Vein Open Last Admin: 11/17/20 12:58 Dose: 10 ml Documented by: Sodium Chloride (Saline Flush) 2.5 ml FLUSH ASDIRECTED PRN PRN Reason: Keep Vein Open Last Admin: 11/17/20 12:58 Dose: 2.5 ml Documented by: Warfarin Sodium (Coumadin Ask) 1 each PO DAILY@1400 [facility] Last Admin: 11/30/20 14:53 Dose: Not Given Documented by: Discontinued Medications Albuterol/Ipratropium (Duoneb 3.0-0.5 Mg/3 Ml) 3 ml NEB Q4HRRT PRN PRN Reason: Shortness Of Breath/wheezing Albuterol/Ipratropium (Combivent Respimat) 0 gm INH Q4H PRN PRN Reason: Dyspnea Albuterol/Ipratropium (Combivent Respimat) 0 gm INH Q4H [facility] Last Admin: 11/29/20 13:20 Dose: 1 inhalation Documented by: Albuterol/Ipratropium (Combivent Respimat) 0 gm INH Q4H [facility] Albuterol/Ipratropium (Duoneb 3.0-0.5 Mg/3 Ml) 3 ml NEB Q4HRRT [facility] Enoxaparin Sodium (Lovenox) 40 mg SUBCUT Q12HR [facility] Last Admin: 11/18/20 20:46 Dose: 40 mg Documented by: Folic Acid (Folic Acid) 1 mg PO ASDIRECTED [facility] Furosemide (Lasix) 40 mg IVPUSH NOW ONE Stop: 11/17/20 17:21 Last Admin: 11/17/20 18:05 Dose: 40 mg Documented by: Vancomycin HCl 1 gm/ Sodium (Chloride) 250 mls @ 166 mls/hr IV ONETIME ONE Stop: 11/17/20 17:12 Last Admin: 11/17/20 15:48 Dose: 166 mls/hr Documented by: Ceftriaxone Sodium 1 gm/ (Sodium Chloride) 50 mls @ 100 mls/hr IV Q24H [facility] Azithromycin 500 mg/ Sodium (Chloride) 250 mls @ 250 mls/hr IV DAILY [facility] Last Admin: 11/17/20 18:52 Dose: 250 mls/hr Documented by: Ceftriaxone Sodium/Dextrose 1 (gm/ Premix) 50 mls @ 100 mls/hr IV Q24H [facility] Last Admin: 11/19/20 17:02 Dose: 100 mls/hr Documented by: Azithromycin 500 mg/ Sodium (Chloride) 250 mls @ 250 mls/hr IV DAILY@1900 [facility] Last Admin: 11/19/20 18:58 Dose: 250 mls/hr Documented by: Levofloxacin/Dextrose 750 mg/ (Premix) 150 mls @ 100 mls/hr IV Q24H [facility] Last Admin: 11/26/20 11:15 Dose: 100 mls/hr Documented by: Levofloxacin/Dextrose (Levaquin In D5w 750 Mg/150 Ml) Confirm Administered Dose 150 mls @ as directed IV .STK-MED ONE Stop: 11/25/20 10:44 Last Admin: 11/25/20 12:00 Dose: Not Given Documented by: Iopamidol (Isovue Multipack-370 (76%)) 100 ml IVPUSH ONETIME ONE Stop: 11/17/20 14:50 Last Admin: 11/17/20 14:52 Dose: 100 ml Documented by: Methylprednisolone Sodium Succinate (Solu-Medrol) 125 mg IVPUSH DAILY [facility] Methylprednisolone Sodium Succinate (Solu-Medrol) 125 mg IVPUSH DAILY [facility] Last Admin: 11/27/20 08:59 Dose: 125 mg Documented by: Warfarin Sodium (Coumadin) 7.5 mg PO ONETIME ONE Stop: 11/17/20 18:31 Last Admin: 11/17/20 18:58 Dose: 7.5 mg Documented by: Warfarin Sodium (Coumadin) 5 mg PO 11/18/20@1400 [facility] Stop: 11/18/20 14:01 Last Admin: 11/18/20 15:00 Dose: 5 mg Documented by: Warfarin Sodium (Coumadin) 5 mg PO 11/18/20@1400 [facility] Stop: 11/18/20 14:01 Last Admin: 11/18/20 15:00 Dose: Not Given Documented by: Warfarin Sodium (Coumadin) 2 mg PO 11/19/20@1400 [facility] Stop: 11/19/20 14:01 Last Admin: 11/19/20 13:48 Dose: 2 mg Documented by: Warfarin Sodium (Coumadin) 2.5 mg PO DAILY@1400 ONE Stop: 11/22/20 14:01 Last Admin: 11/22/20 13:57 Dose: 2.5 mg Documented by: Warfarin Sodium (Coumadin) 4 mg PO DAILY@1400 ONE Stop: 11/23/20 14:01 Last Admin: 11/23/20 13:45 Dose: 4 mg Documented by: Warfarin Sodium (Coumadin) 2.5 mg PO DAILY@1400 ONE Stop: 11/24/20 14:01 Last Admin: 11/24/20 14:50 Dose: 2.5 mg Documented by: Warfarin Sodium (Coumadin) 2 mg PO DAILY@1530 [facility] Stop: 11/25/20 15:31 Last Admin: 11/25/20 15:40 Dose: 2 mg Documented by: Warfarin Sodium (Coumadin) 2 mg PO 11/26/20@1400 [facility] Stop: 11/26/20 16:00 Last Admin: 11/26/20 14:29 Dose: 2 mg Documented by: Warfarin Sodium (Coumadin) 2.5 mg PO 11/27/20@1430 [facility] Stop: 11/27/20 15:30 Last Admin: 11/27/20 14:56 Dose: 2.5 mg Documented by: Warfarin Sodium (Coumadin) 3 mg PO 11/28/20@1400 [facility] Stop: 11/28/20 15:00 Last Admin: 11/28/20 14:45 Dose: 3 mg Documented by: Warfarin Sodium (Coumadin) 3 mg PO 11/29/20@1400 [facility] Stop: 11/29/20 14:01 Last Admin: 11/29/20 13:50 Dose: 3 mg Documented by: Warfarin Sodium (Coumadin) 3 mg PO 11/30/20@1400 [facility] Stop: 11/30/20 16:00 Last Admin: 11/30/20 14:52 Dose: 3 mg Documented by:
[2020-12-01] MEDS: Levofloxacin/Dextrose 5%-Water 750 MG in Premix Bag 1 BAG IV SCH (11:54)
[2020-12-01] MEDS ORDERED: Warfarin 2 MG Tab PO ONE (14:00)
== END 2020-12-01 17:30 | disposition home health service (06) | DRG 196 ==
LOC: MW.ED 12:35 → MW.MS 15:47
PROVIDERS: ADMIT Student in an Organized Health Care Education/Training Program; ATTEND Student in an Organized Health Care Education/Training Program
PROC: 5A0955A Assistance with Respiratory Ventilation, Greater than 96 Consecutive Hours, High Flow/Velocity Cannula (ICD-10-PCS; principal; 2020-11-24)
DX: J18.8 Other pneumonia, unspecified organism (principal); J84.10 Pulmonary fibrosis, unspecified; J18.9 Pneumonia, unspecified organism; J43.9 Emphysema, unspecified; T38.0X5A Adverse effect of glucocorticoids and synthetic analogues, initial encounter; Z20.828 Contact with and (suspected) exposure to other viral communicable diseases; R26.2 Difficulty in walking, not elsewhere classified; Z20.822 Contact with and (suspected) exposure to COVID-19; R73.9 Hyperglycemia, unspecified; Z79.890 Hormone replacement therapy; Z79.01 Long term (current) use of anticoagulants; Z79.899 Other long term (current) drug therapy; Z87.891 Personal history of nicotine dependence; Z86.718 Personal history of other venous thrombosis and embolism
CPT/HCPCS: 0240U; 36415; 36600; 71045; 71045-26; 71275; 71275-26; 80048; 80053; 81001; 82306; 82803; 82962; 83605; 83735; 83880; 84100; 84484; 85025; 85379; 85610; 87040; 87070; 87205; 93005; 93010; 94640; 94660; 94664; 94667; 96365; 97116-GP; 97161-GP; 97530-GP; 99283; 99285-25; A9270-GY; J0456; J0692; J0696; J1650; J1815-GY; J1940; J1956; J2930; J3370; J7050; Q9967; U0002

== ENCOUNTER 2021-01-08 14:27 | Observation (INO) | payer MEDICARE, BC ==
[2021-01-08] MEDS ORDERED: Sodium Chloride 0.9% 2.5 ML Syringe FLUSH PRN ×2 (14:28→17:21)
[2021-01-08] MEDS ORDERED: Sodium Chloride 0.9% 10 ML Syringe FLUSH PRN (14:28)
[2021-01-08] MEDS ORDERED: Aspirin 81 MG Tab.Chew PO ONE (14:40)
--- NOTE | 2021-01-08 14:47 | EDM.PDOC ---
ED HPI GENERAL MEDICAL PROBLEM - General Chief Complaint: Neuro Symptoms/Deficits Stated Complaint: STROKE CODE Time Seen by Provider: 01/08/21 14:30 Source of Information: Reports: Patient, EMS, Family History Limitations: Reports: No Limitations - History of Present Illness INITIAL COMMENTS - FREE TEXT/NARRATIVE: 80-year-old male past medical history COPD, DVT on warfarin, hypertension presents for right-sided facial droop. Patient is poor historian. History from patient, daughter, home health nurse. Home health nurse went to visit patient and check his INR and noted that he had right facial droop with right upper extremity weakness. She tried to convince him to come to the hospital but he was unwilling. She checked his INR and noted it to be elevated above 4 and called his primary care physician who recommended holding warfarin for the next couple of days. She was able to convince the patient to come to the hospital with his daughter. Patient is uncertain when the symptoms started. He denies upper or lower extremity weakness. He does endorse generalized weakness and shortness of breath although notes that these are longstanding processes and does not notice any acute changes. - Related Data Allergies Allergy/AdvReac Type Severity Reaction Status Date / Time No Known Allergies Allergy Verified 01/08/21 14:53 Home Meds: Home Meds Folic Acid 1 mg PO DAILY 11/17/20 [History] Furosemide [Lasix] 40 mg PO DAILY 11/17/20 [History] Levothyroxine 150 mcg PO ACBREAKFAST 11/17/20 [History] Methotrexate 12.5 mg PO WEEKLY 11/17/20 [History] Potassium Chloride [Klor-Con M20] 20 meq PO DAILY 11/17/20 [History] Warfarin [Coumadin] 4 mg PO SUMOTUWETHSA@1400 11/17/20 [History] Warfarin [Coumadin] 5 mg PO FR@1400 11/17/20 [History] Albuterol/Ipratropium [Combivent Respimat] 1 inhaler INH Q4H #1 inhaler 12/01/20 [Rx] Cholecalciferol (Vitamin D3) [Vitamin D3] 25 mcg PO DAILY #30 tablet 12/01/20 [Rx] Past Medical History - Past Health History Medical/Surgical History: Denies Medical/Surgical History HEENT History: Reports: None Cardiovascular History: Reports: None Respiratory History: Reports: None Gastrointestinal History: Reports: None Genitourinary History: Reports: None Musculoskeletal History: Reports: Arthritis Neurological History: Reports: None Psychiatric History: Reports: None Endocrine/Metabolic History: Reports: None Hematologic History: Reports: Other (See Below) Other Hematologic History: Blood clots? Immunologic History: Reports: None Oncologic (Cancer) History: Reports: None Dermatologic History: Reports: None - Infectious Disease History Infectious Disease History: Reports: None - Past Surgical History Head Surgeries/Procedures: Reports: None Social & Family History - Family History Family Medical History: No Pertinent Family History - Caffeine Use Caffeine Use: Reports: Coffee ED ROS GENERAL - Review of Systems Review Of Systems: Comprehensive ROS is negative, except as noted in HPI. ED EXAM, GENERAL - Physical Exam Exam: See Below Exam Limited By: No Limitations General Appearance: Alert, WD/WN, No Apparent Distress Eye Exam: Bilateral Eye: EOMI, PERRL Throat/Mouth: Normal Voice, No Airway Compromise Head: Atraumatic, Normocephalic Neck: Normal Inspection Respiratory/Chest: No Respiratory Distress, Lungs Clear, Normal Breath Sounds, No Accessory Muscle Use Cardiovascular: Normal Peripheral Pulses, Regular Rate, Rhythm GI/Abdominal: Soft, Non-Tender Extremities: Normal Inspection Neurological: Alert, Oriented, Normal Cognition, Other (right sided facial droop, no pronator drift b/l UE, 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, normal strength b/l LE) Psychiatric: Normal Affect, Normal Mood Skin Exam: Warm, Dry, Intact, Normal Color #1 Interpretation EKG Date: 01/08/21 Time: 14:20 Rhythm: NSR Rate (Beats/Min): 70 Mason: Normal P-Wave: Present QRS: Normal ST-T: Normal QT: Normal AK/PQ Interval: 214 Comparison: NA - No Prior EKG EKG Interpretation Comments: no evidence of acute ischemia Course - Vital Signs Last Recorded V/S: Last Vital Signs Temp 97.6 F 01/08/21 14:28 Pulse 75 01/08/21 14:28 Resp 20 01/08/21 14:28 BP 167/87 H 01/08/21 14:28 Pulse Ox 98 01/08/21 14:28 - Orders/Labs/Meds Orders: Active Orders 24 hr Category Date Time Status Cardiac Monitoring [RC] . DIRECTED Care 01/08/21 14:29 Active EKG Documentation Completion [RC] STAT Care 01/08/21 14:28 Active Pulse Oximetry [RC] ASDIRECTED Care 01/08/21 14:29 Active Adult Diet [DIET] Diet 01/08/21 Dinner Active CULTURE BLOOD [BC] Stat Lab 01/08/21 15:33 Received CULTURE BLOOD [BC] Stat Lab 01/08/21 15:39 Received Sodium Chloride 0.9% [Normal Saline] 1,000 ml Med 01/08/21 15:27 Active IV .Bolus Sodium Chloride 0.9% [Saline Flush] Med 01/08/21 14:28 Active 10 ml FLUSH ASDIRECTED PRN Sodium Chloride 0.9% [Saline Flush] Med 01/08/21 14:28 Active 2.5 ml FLUSH ASDIRECTED PRN Blood Culture x2 Reflex Set [OM.PC] Stat Oth 01/08/21 15:25 Ordered Saline Lock Insert [OM.PC] Stat Oth 01/08/21 14:29 Ordered Medication Orders Sodium Chloride (Normal Saline) 1,000 mls @ 100 mls/hr IV .Bolus ONE Stop: 01/09/21 01:26 Sodium Chloride (Saline Flush) 10 ml FLUSH ASDIRECTED PRN PRN Reason: Keep Vein Open Last Admin: 01/08/21 14:58 Dose: 10 ml Documented by: [id number] Sodium Chloride (Saline Flush) 2.5 ml FLUSH ASDIRECTED PRN PRN Reason: Keep Vein Open Last Admin: 01/08/21 14:58 Dose: 2.5 ml Documented by: [id number] Labs: Laboratory Tests 01/08/21 01/08/21 01/08/21 Range/Units 14:30 14:30 14:30 WBC 18.81 H (4.0-11.0) K/uL RBC 4.77 (4.50-5.90) M/uL Hgb 15.6 (13.0-17.0) g/dL Hct 47.8 (38.0-50.0) % MCV 100.2 H (80.0-98.0) fL MCH 32.7 H (27.0-32.0) pg MCHC 32.6 (31.0-37.0) g/dL RDW Std Deviation 66.0 H (28.0-62.0) fl RDW Coeff of Sunny 18 H (11.0-15.0) % Plt Count 156 (150-400) K/uL MPV 11.50 (7.40-12.00) fL Add Manual Diff YES Neutrophils % (Manual) 75 (48.0-80.0) % Band Neutrophils % 2 % Lymphocytes % (Manual) 14 L (16.0-40.0) % Monocytes % (Manual) 8 (0.0-15.0) % Metamyelocytes % 1 % Nucleated RBC % 0.0 /100WBC Absolute Seg Neuts 14.1 H (1.4-5.7) Band Neutrophils # 0.4 Lymphocytes # (Manual) 2.6 H (0.6-2.4) Monocytes # (Manual) 1.5 H (0.0-0.8) Absolute Metamyelocyte 0.2 Nucleated RBCs # 0 K/uL INR 4.32 APTT 38.5 H (18.6-31.3) SEC Lactate 2.6 H* (0.20-2.00) mmol/L Sodium (136-148) mmol/L Potassium (3.5-5.1) mmol/L Chloride (98-107) mmol/L Carbon Dioxide (21.0-32.0) mmol/L BUN (7.0-18.0) mg/dL Creatinine (0.8-1.3) mg/dL Est Cr Clr Drug Dosing mL/min Estimated GFR (MDRD) ml/min Glucose (74-106) mg/dL Calcium (8.5-10.1) mg/dL Magnesium (1.8-2.4) mg/dL Total Bilirubin (0.2-1.0) mg/dL AST (15-37) IU/L ALT (14-63) IU/L Alkaline Phosphatase (46-116) U/L Troponin I (0.000-0.056) ng/mL Total Protein (6.4-8.2) g/dL Albumin (3.4-5.0) g/dL Globulin (2.6-4.0) g/dL Albumin/Globulin Ratio (0.9-1.6) Urine Color Urine Appearance Urine pH (5.0-8.0) Ur Specific [place] (1.001-1.035) Urine Protein (NEGATIVE) mg/dL Urine Glucose (UA) (NEGATIVE) mg/dL Urine Ketones (NEGATIVE) mg/dL Urine Occult Blood (NEGATIVE) Urine Nitrite (NEGATIVE) Urine Bilirubin (NEGATIVE) Urine Urobilinogen (<2.0) EU/dL Ur Leukocyte Esterase (NEGATIVE) Urine RBC (0-2/HPF) Urine WBC (0-5/HPF) Ur Epithelial Cells (NONE-FEW) Urine Bacteria (NEGATIVE) 01/08/21 01/08/21 Range/Units 14:30 14:53 WBC (4.0-11.0) K/uL RBC (4.50-5.90) M/uL Hgb (13.0-17.0) g/dL Hct (38.0-50.0) % MCV (80.0-98.0) fL MCH (27.0-32.0) pg MCHC (31.0-37.0) g/dL RDW Std Deviation (28.0-62.0) fl RDW Coeff of Sunny (11.0-15.0) % Plt Count (150-400) K/uL MPV (7.40-12.00) fL Add Manual Diff Neutrophils % (Manual) (48.0-80.0) % Band Neutrophils % % Lymphocytes % (Manual) (16.0-40.0) % Monocytes % (Manual) (0.0-15.0) % Metamyelocytes % % Nucleated RBC % /100WBC Absolute Seg Neuts (1.4-5.7) Band Neutrophils # Lymphocytes # (Manual) (0.6-2.4) Monocytes # (Manual) (0.0-0.8) Absolute Metamyelocyte Nucleated RBCs # K/uL INR APTT (18.6-31.3) SEC Lactate (0.20-2.00) mmol/L Sodium 144 (136-148) mmol/L Potassium 4.4 (3.5-5.1) mmol/L Chloride 104 (98-107) mmol/L Carbon Dioxide 31.4 (21.0-32.0) mmol/L BUN 35 H (7.0-18.0) mg/dL Creatinine 1.3 (0.8-1.3) mg/dL Est Cr Clr Drug Dosing 55.64 mL/min Estimated GFR (MDRD) 53.1 ml/min Glucose 140 H (74-106) mg/dL Calcium 8.6 (8.5-10.1) mg/dL Magnesium 2.5 H (1.8-2.4) mg/dL Total Bilirubin 1.2 H (0.2-1.0) mg/dL AST 32 (15-37) IU/L ALT 69 H (14-63) IU/L Alkaline Phosphatase 79 (46-116) U/L Troponin I < 0.050 (0.000-0.056) ng/mL Total Protein 6.1 L (6.4-8.2) g/dL Albumin 3.2 L (3.4-5.0) g/dL Globulin 2.9 (2.6-4.0) g/dL Albumin/Globulin Ratio 1.1 (0.9-1.6) Urine Color YELLOW Urine Appearance CLEAR Urine pH 6.0 (5.0-8.0) Ur Specific [place] 1.010 (1.001-1.035) Urine Protein NEGATIVE (NEGATIVE) mg/dL Urine Glucose (UA) NEGATIVE (NEGATIVE) mg/dL Urine Ketones NEGATIVE (NEGATIVE) mg/dL Urine Occult Blood TRACE-INTACT H (NEGATIVE) Urine Nitrite NEGATIVE (NEGATIVE) Urine Bilirubin NEGATIVE (NEGATIVE) Urine Urobilinogen 0.2 (<2.0) EU/dL Ur Leukocyte Esterase NEGATIVE (NEGATIVE) Urine RBC 0-2 (0-2/HPF) Urine WBC NONE SEEN (0-5/HPF) Ur Epithelial Cells RARE (NONE-FEW) Urine Bacteria NOT SEEN (NEGATIVE) Meds: Medications Generic Name Dose Route Start Last Admin Trade Name Freq PRN Reason Stop Dose Admin Sodium Chloride 1,000 mls @ 100 mls/hr 01/08/21 15:27 Normal Saline IV 01/09/21 01:26 .Bolus ONE Sodium Chloride 10 ml 01/08/21 14:28 01/08/21 14:58 Saline Flush FLUSH 10 ml ASDIRECTED PRN Administration Keep Vein Open Sodium Chloride 2.5 ml 01/08/21 14:28 01/08/21 14:58 Saline Flush FLUSH 2.5 ml ASDIRECTED PRN Administration Keep Vein Open Discontinued Medications Generic Name Dose Route Start Last Admin Trade Name Freq PRN Reason Stop Dose Admin Aspirin 324 mg 01/08/21 14:40 01/08/21 14:57 Aspirin PO 02/17/21 14:41 324 mg ONETIME ONE Administration Sodium Chloride 1,000 mls @ 999 mls/hr 01/08/21 14:48 01/08/21 14:57 Normal Saline IV 01/08/21 15:48 999 mls/hr .Bolus ONE Administration Iopamidol 100 ml 01/08/21 15:04 01/08/21 15:05 Isovue Multipack-370 (76%) IVPUSH 01/08/21 15:05 100 ml ONETIME STA Administration - Re-Assessments/Exams Free Text/Narrative Re-Assessment/Exam: 01/08/21 15:16 Patient was brought for emergent head CT which was noted to be nonischemic. CTA of the head and neck were then performed. Patient was given 324 mg of aspirin for possible ischemic stroke. We will follow-up additional labs and admit for further work-up. 01/08/21 15:41 Labs reveal a white blood cell count of 18, elevated INR, mild elevation of BUN. 1 L IV fluid bolus has been ordered as well as maintenance fluids at 100/h. On further interview with patient daughter, patient did go for outpatient chest x-ray today which showed interval slight improvement of extensive bilateral coarse interstitial opacities consistent with pulmonary fibrosis and apical pleural thickening. There is no evidence of pneumonia. On further interview with patient, he states that he has noticed drooling from right side of his mouth for at least a couple of weeks. My suspicion for acute CVA is lower. Patient also notes that he has been on increased dose of prednisone for the last 2 weeks which may explain his elevated white blood cell count. Will admit patient for possible stroke, MRI, reassessment. 01/08/21 15:48 Dr. Geiger agrees to admit tele obs Departure - Departure Time of Disposition: 15:49 Disposition: Admitted As Inpatient 66 Condition: Fair Clinical Impression: Pulmonary fibrosis, Facial droop - Discharge Information Referrals: Evelio Tyson [Primary Care Provider] - Forms: ED Department Discharge Critical Care Note - Critical Care Note Total Time (mins): 35 Sepsis Event Note (ED) - Evaluation Sepsis Screening Result: No Definite Risk - Focused Exam Vital Signs: Vital Signs Temp Pulse Resp BP Pulse Ox 01/08/21 14:28 97.6 F 75 20 167/87 H 98 - My Orders Last 24 Hours: My Active Orders 01/08/21 14:28 EKG Documentation Completion [RC] STAT Sodium Chloride 0.9% [Saline Flush] 10 ml FLUSH ASDIRECTED PRN Sodium Chloride 0.9% [Saline Flush] 2.5 ml FLUSH ASDIRECTED PRN 01/08/21 14:29 Cardiac Monitoring [RC] . DIRECTED Pulse Oximetry [RC] ASDIRECTED Saline Lock Insert [OM.PC] Stat 01/08/21 15:25 Blood Culture x2 Reflex Set [OM.PC] Stat 01/08/21 15:27 Sodium Chloride 0.9% [Normal Saline] 1,000 ml IV .Bolus 01/08/21 15:33 CULTURE BLOOD [BC] Stat 01/08/21 15:39 CULTURE BLOOD [BC] Stat 01/08/21 Dinner Adult Diet [DIET] - Assessment/Plan Last 24 Hours: My Active Orders 01/08/21 14:28 EKG Documentation Completion [RC] STAT Sodium Chloride 0.9% [Saline Flush] 10 ml FLUSH ASDIRECTED PRN Sodium Chloride 0.9% [Saline Flush] 2.5 ml FLUSH ASDIRECTED PRN 01/08/21 14:29 Cardiac Monitoring [RC] . DIRECTED Pulse Oximetry [RC] ASDIRECTED Saline Lock Insert [OM.PC] Stat 01/08/21 15:25 Blood Culture x2 Reflex Set [OM.PC] Stat 01/08/21 15:27 Sodium Chloride 0.9% [Normal Saline] 1,000 ml IV .Bolus 01/08/21 15:33 CULTURE BLOOD [BC] Stat 01/08/21 15:39 CULTURE BLOOD [BC] Stat 01/08/21 Dinner Adult Diet [DIET]
[2021-01-08] MEDS ORDERED: Sodium Chloride 0.9% 1,000 ML IV ONE ×2 (14:48→15:27)
--- NOTE | 2021-01-08 14:57 | CT ---
INDICATION: Right facial droop. TECHNIQUE: CT head without contrast. COMPARISON: None FINDINGS: CSF spaces: Within normal limits for age. Brain parenchyma: The hickey-white differentiation is normal. No sign of mass, hemorrhage, or midline shift. Periventricular white matter changes consistent chronic microvascular disease. Diffuse volume loss. Skull base and calvarium: The visualized paranasal sinuses and mastoid air cells demonstrate no acute or significant findings. The visualized orbits are grossly unremarkable. No skull fractures. IMPRESSION: No acute intracranial abnormalities. Periventricular white matter changes consistent chronic microvascular disease. Diffuse volume loss. Please note that all CT scans at this facility use dose modulation, iterative reconstruction, and/or weight-based dosing when appropriate to reduce radiation dose to as low as reasonably achievable. Dictated by Dejon Rosa MD @ Jan 08 2021 2:48PM Signed by Dr. Dejon Rosa @ Jan 08 2021 2:56PM
[2021-01-08] MEDS ORDERED: Iopamidol 755 MG/ML 500 ML Multipack Bottle IVPUSH STA (15:04)
[2021-01-08 15:08] LABS: BLOOD UREA NITROGEN,BUN 35 mg/dL (7.0-18.0); CARBON DIOXIDE,CO2 31.4 mmol/L (21.0-32.0); CHLORIDE,CL 104 mmol/L (98-107); GLUCOSE RANDOM 140 mg/dL (74-106); POTASSIUM,K 4.4 mmol/L (3.5-5.1); SODIUM,NA 144 mmol/L (136-148)
--- NOTE | 2021-01-08 15:21 | CT ---
DATE: 01/08/2021. CLINICAL HISTORY: Patient with acute onset right facial droop. TECHNIQUE: Standard helical CT image acquisition through the head and neck was performed after intravenous contrast bolus enhancement. Multiplanar reconstructed images were performed and interpreted. COMPARISON: None available. FINDINGS: The origins of the great vessels from the aortic arch are patent. The origins of the right and left vertebral arteries are patent. The common carotid arteries are patent. There is calcified and noncalcified atherosclerotic plaque involving the bilateral carotid bifurcations and carotid bulbs with resulting mild luminal stenosis of the proximal left ICA, less than 50 percent stenosis by NASCET criteria. There is marked tortuosity and a corrugated appearance of the right greater than left mid distal cervical segments of the ICAs which may reflect underlying fibromuscular dysplasia. The cervical segments of the vertebral arteries are patent but demonstrate a corrugated appearance of the distal cervical segments which may be seen in the setting of underlying fibromuscular dysplasia. Multifocal intracranial atherosclerotic disease but without evidence of flow-limiting luminal stenosis. No intracranial proximal large vessel occlusion. Advanced emphysematous changes within the visualized upper lungs. The thyroid gland is unremarkable. There are degenerative changes in the cervical spine. IMPRESSION: 1. No intracranial proximal large vessel occlusion or flow-limiting luminal stenosis. 2. Mild atherosclerotic luminal stenosis of the proximal left internal carotid artery, less than 50 percent stenosis by NASCET criteria. 3. Tortuous and corrugated appearance of the cervical arterial vasculature, as above, which may reflect underlying fibromuscular dysplasia. Please note that all CT scans at this facility use dose modulation, iterative reconstruction, and/or weight-based dosing when appropriate to reduce radiation dose to as low as reasonably achievable. Dictated by Justin Jiang MD @ Jan 08 2021 3:12PM Signed by Dr. Justin Jiang @ Jan 08 2021 3:20PM
--- NOTE | 2021-01-08 17:05 | PCM.HP.2 ---
H&P History of Present Illness - General Date of Service: 01/08/21 Admit Problem/Dx: Admission Diagnosis/Problem Admission Diagnosis/Problem CVA, Cerebrovascular accident Source of Information: Patient History Limitations: Reports: No Limitations - History of Present Illness Initial Comments - Free Text/Narative: This 80-year-old male with past medical history of BOOP pneumonia, subsequent pulmonary fibrosis, chronic hypoxic respiratory failure on 2 L of oxygen and up to 6 years of oxygen with activity, hypothyroidism, DVT on warfarin and arthritis presented to the ER today after home health nurse noted he had been drooling pretty constantly during her visit at his house with mild R facial droop. She also reported right upper extremity weakness. Per patient he rep orts the drooling has been on and off for the past few months and overall feels very deconditioned because of recent significant lung illness resulting in inability to ambulate long distances without fatigue and significant dyspnea. He has been seen by Dr. Joya in [place] regarding arthritis and has been treated recently with high-dose prednisone 30 mg twice daily. He reports he is otherwise been feeling fine at home recently. No fevers chills sinus congestion chest pain shortness of breath beyond his normal or palpitations. Today he had chest x-ray and echo completed at outpatient clinic with PCP. X-ray findings are improved per daughter. But continue to have some fibrotic appearance. Reports there is history of tobacco use many years ago but did quit. Rare alcohol use many years ago and no recreational drug use. Has no history of CVA in the past and no significant cardiac history per his recollection. In the ER leukocytosis noted at 18,000 hemoglobin 15.6 platelets 156,000 INR slightly elevated at 4.32 lactic acid elevated at 2.6. Sodium 144 potassium 4.4 BUN 35 creatinine 1.3 glucose mildly elevated at 140 magnesium 2.5 bilirubin 1.2 troponin negative UA negative Covid swab negative. Stroke code was called and he was evaluated with head CT which showed no acute intracranial abnormalities periventricular white matter changes consistent with chronic microvascular veronica nges, diffuse volume loss. CTA of head and neck were also completed which show no intracranial proximal large vessel occlusion or flow limiting luminal stenosis. Mild atherosclerotic luminal stenosis of the proximal left internal carotid artery less than 50% stenosis by NASCET criteria. They did note tortuous and corrugated appearance of the cervical arterial vasculature right greater than left mid distal cervical segments of the ICAs which could reflect underlying fibromuscular dysplasia. He was treated with aspirin and 1 L normal saline bolus in the ER. Vital signs remained stable blood pressure 160s over 80s heart rate in the 70s EKG sinus rhythm no acute ischemic changes or arrhythm ias. Patient was not completely thrilled regarding admission but did speak with daughter and is agreeable to staying overnight for MRI for further evaluation for possible CVA. PCP Dr. Gasca - Related Data Allergies/Adverse Reactions: Allergies Allergy/AdvReac Type Severity Reaction Status Date / Time No Known Allergies Allergy Verified 01/08/21 18:40 Home Medications: Home Meds Folic Acid 1 mg PO DAILY 11/17/20 [History] Furosemide [Lasix] 40 mg PO DAILY 11/17/20 [History] Levothyroxine 150 mcg PO ACBREAKFAST 11/17/20 [History] Methotrexate 12.5 mg PO WEEKLY 11/17/20 [History] Potassium Chloride [Klor-Con M20] 20 meq PO DAILY 11/17/20 [History] Warfarin [Coumadin] 4 mg PO SUMOTUWETHSA@1400 11/17/20 [History] Warfarin [Coumadin] 5 mg PO FR@1400 11/17/20 [History] Albuterol/Ipratropium [Combivent Respimat] 1 inhaler INH Q4H #1 inhaler 12/01/20 [Rx] Cholecalciferol (Vitamin D3) [Vitamin D3] 25 mcg PO DAILY #30 tablet 12/01/20 [Rx] Past Medical History - Past Health History Medical/Surgical History: Denies Medical/Surgical History HEENT History: Reports: None Cardiovascular History: Reports: Blood Clots/VTE/DVT. Denies: CAD Respiratory History: Reports: Pneumonia, Recurrent, Pulmonary Fibrosis, Other (See Below) (BOOP pna, chronic respiratory failure on oxygen) Gastrointestinal History: Reports: None Genitourinary History: Reports: None Musculoskeletal History: Reports: Arthritis Neurological History: Reports: None. Denies: CVA Psychiatric History: Reports: None Endocrine/Metabolic History: Reports: None, Obesity/BMI 30+. Denies: Diabetes, Type II (Blood sugars have noted to be elevated likely secondary to chronic prednisone use) Hematologic History: Reports: Other (See Below) Other Hematologic History: Blood clots? Immunologic History: Reports: None Oncologic (Cancer) History: Reports: None Dermatologic History: Reports: None - Infectious Disease History Infectious Disease History: Reports: None - Past Surgical History Head Surgeries/Procedures: Reports: None Musculoskeletal Surgical History: Reports: Other (See Below) (Plate and screws to right knee after fall with subsequent fracture.) Social & Family History - Family History Family Medical History: No Pertinent Family History - Tobacco Use Tobacco Use Status *Q: Former Tobacco User - Caffeine Use Caffeine Use: Reports: Coffee - Alcohol Use Alcohol Use History: No - Living Situation & Occupation Living situation: Reports: with Family (Lives with daughter, recently started living with her due to significant lung disease this winter.) Occupation: Retired H&P Review of Systems - Review of Systems: Review Of Systems: See Below General: Reports: Weakness (Generalized). Denies: Fever, Chills HEENT: Reports: Other (Drooping from right side of mouth) Pulmonary: Reports: Shortness of Breath (At baseline). Denies: Cough Cardiovascular: Reports: Dyspnea on Exertion (At baseline). Denies: Chest Pain Gastrointestinal: Reports: No Symptoms. Denies: Abdominal Pain, Black Stool, Bloody Stool, Nausea, Vomiting Genitourinary: Reports: No Symptoms. Denies: Dysuria, Frequency, Burning Musculoskeletal: Reports: Joint Pain (Arthritic pain at baseline) Skin: Reports: No Symptoms Psychiatric: Reports: No Symptoms Neurological: Denies: Confusion, Dizziness, Headache, Numbness, Tingling, Tremors, Change in Speech, Gait Disturbance Hematologic/Lymphatic: Reports: No Symptoms Immunologic: Reports: No Symptoms Exam - Exam Exam: See Below - Vital Signs Vital Signs: Last Vital Signs Temp 97.6 F 01/08/21 14:28 Pulse 75 01/08/21 14:28 Resp 20 01/08/21 14:28 BP 167/87 H 01/08/21 14:28 Pulse Ox 98 01/08/21 14:28 Weight: 114.305 kg - Exam Quality Assessment: Supplemental Oxygen, DVT Prophylaxis General: Alert, Oriented, Cooperative HEENT: Conjunctiva Clear, Mucosa Moist & [place], Normal Nasal Septum Neck: Supple, Trachea Midline Lungs: Normal Respiratory Effort (At rest), Rhonchi Cardiovascular: Regular Rate, Regular Rhythm, Normal S1, Normal S2. No: Irregular Rhythm, Tachycardia GI/Abdominal Exam: Normal Bowel Sounds, Soft, Non-Tender Back Exam: Normal Inspection, Full Range of Motion Extremities: Normal Inspection, Normal Range of Motion, Pedal Edema (+2 pitting edema to left lower extremity trace to right lower extremity) Skin: Warm, Dry, Intact, Ecchymosis (Healing bruises to left upper arm) Neurological: Cranial Nerves Intact, Reflexes Equal Bilateral, Normal Speech, Other (Mild drooling noted to right mouth). No: Strength Equal Bilateral (Strength to right upper arm mildly decreased 4 out of 5 compared to left 5/5) Neuro Extensive - Mental Status: Alert, Oriented x3, Normal Mood/Affect Neuro Extensive - Motor, Sensory, Reflexes: CN II-XII Intact Psychiatric: Alert, Normal Affect, Normal Mood - Patient Data Lab Results Last 24 hrs: Laboratory Results - last 24 hr 01/08/21 01/08/21 01/08/21 Range/Units 14:30 14:30 14:30 WBC 18.81 H (4.0-11.0) K/uL RBC 4.77 (4.50-5.90) M/uL Hgb 15.6 (13.0-17.0) g/dL Hct 47.8 (38.0-50.0) % MCV 100.2 H (80.0-98.0) fL MCH 32.7 H (27.0-32.0) pg MCHC 32.6 (31.0-37.0) g/dL RDW Std Deviation 66.0 H (28.0-62.0) fl RDW Coeff of Sunny 18 H (11.0-15.0) % Plt Count 156 (150-400) K/uL MPV 11.50 (7.40-12.00) fL Add Manual Diff YES Neutrophils % (Manual) 75 (48.0-80.0) % Band Neutrophils % 2 % Lymphocytes % (Manual) 14 L (16.0-40.0) % Monocytes % (Manual) 8 (0.0-15.0) % Metamyelocytes % 1 % Nucleated RBC % 0.0 /100WBC Absolute Seg Neuts 14.1 H (1.4-5.7) Band Neutrophils # 0.4 Lymphocytes # (Manual) 2.6 H (0.6-2.4) Monocytes # (Manual) 1.5 H (0.0-0.8) Absolute Metamyelocyte 0.2 Nucleated RBCs # 0 K/uL INR 4.32 APTT 38.5 H (18.6-31.3) SEC Lactate 2.6 H* (0.20-2.00) mmol/L Sodium (136-148) mmol/L Potassium (3.5-5.1) mmol/L Chloride (98-107) mmol/L Carbon Dioxide (21.0-32.0) mmol/L BUN (7.0-18.0) mg/dL Creatinine (0.8-1.3) mg/dL Est Cr Clr Drug Dosing mL/min Estimated GFR (MDRD) ml/min Glucose (74-106) mg/dL Calcium (8.5-10.1) mg/dL Magnesium (1.8-2.4) mg/dL Total Bilirubin (0.2-1.0) mg/dL AST (15-37) IU/L ALT (14-63) IU/L Alkaline Phosphatase (46-116) U/L Troponin I (0.000-0.056) ng/mL Total Protein (6.4-8.2) g/dL Albumin (3.4-5.0) g/dL Globulin (2.6-4.0) g/dL Albumin/Globulin Ratio (0.9-1.6) Urine Color Urine Appearance Urine pH (5.0-8.0) Ur Specific Alliance (1.001-1.035) Urine Protein (NEGATIVE) mg/dL Urine Glucose (UA) (NEGATIVE) mg/dL Urine Ketones (NEGATIVE) mg/dL Urine Occult Blood (NEGATIVE) Urine Nitrite (NEGATIVE) Urine Bilirubin (NEGATIVE) Urine Urobilinogen (<2.0) EU/dL Ur Leukocyte Esterase (NEGATIVE) Urine RBC (0-2/HPF) Urine WBC (0-5/HPF) Ur Epithelial Cells (NONE-FEW) Urine Bacteria (NEGATIVE) SARS-CoV-2 RNA (MELIDA) (NEGATIVE) 01/08/21 01/08/21 01/08/21 Range/Units 14:30 14:53 16:05 WBC (4.0-11.0) K/uL RBC (4.50-5.90) M/uL Hgb (13.0-17.0) g/dL Hct (38.0-50.0) % MCV (80.0-98.0) fL MCH (27.0-32.0) pg MCHC (31.0-37.0) g/dL RDW Std Deviation (28.0-62.0) fl RDW Coeff of Sunny (11.0-15.0) % Plt Count (150-400) K/uL MPV (7.40-12.00) fL Add Manual Diff Neutrophils % (Manual) (48.0-80.0) % Band Neutrophils % % Lymphocytes % (Manual) (16.0-40.0) % Monocytes % (Manual) (0.0-15.0) % Metamyelocytes % % Nucleated RBC % /100WBC Absolute Seg Neuts (1.4-5.7) Band Neutrophils # Lymphocytes # (Manual) (0.6-2.4) Monocytes # (Manual) (0.0-0.8) Absolute Metamyelocyte Nucleated RBCs # K/uL INR APTT (18.6-31.3) SEC Lactate (0.20-2.00) mmol/L Sodium 144 (136-148) mmol/L Potassium 4.4 (3.5-5.1) mmol/L Chloride 104 (98-107) mmol/L Carbon Dioxide 31.4 (21.0-32.0) mmol/L BUN 35 H (7.0-18.0) mg/dL Creatinine 1.3 (0.8-1.3) mg/dL Est Cr Clr Drug Dosing 55.64 mL/min Estimated GFR (MDRD) 53.1 ml/min Glucose 140 H (74-106) mg/dL Calcium 8.6 (8.5-10.1) mg/dL Magnesium 2.5 H (1.8-2.4) mg/dL Total Bilirubin 1.2 H (0.2-1.0) mg/dL AST 32 (15-37) IU/L ALT 69 H (14-63) IU/L Alkaline Phosphatase 79 (46-116) U/L Troponin I < 0.050 (0.000-0.056) ng/mL Total Protein 6.1 L (6.4-8.2) g/dL Albumin 3.2 L (3.4-5.0) g/dL Globulin 2.9 (2.6-4.0) g/dL Albumin/Globulin Ratio 1.1 (0.9-1.6) Urine Color YELLOW Urine Appearance CLEAR Urine pH 6.0 (5.0-8.0) Ur Specific [place] 1.010 (1.001-1.035) Urine Protein NEGATIVE (NEGATIVE) mg/dL Urine Glucose (UA) NEGATIVE (NEGATIVE) mg/dL Urine Ketones NEGATIVE (NEGATIVE) mg/dL Urine Occult Blood TRACE-INTACT H (NEGATIVE) Urine Nitrite NEGATIVE (NEGATIVE) Urine Bilirubin NEGATIVE (NEGATIVE) Urine Urobilinogen 0.2 (<2.0) EU/dL Ur Leukocyte Esterase NEGATIVE (NEGATIVE) Urine RBC 0-2 (0-2/HPF) Urine WBC NONE SEEN (0-5/HPF) Ur Epithelial Cells RARE (NONE-FEW) Urine Bacteria NOT SEEN (NEGATIVE) SARS-CoV-2 RNA (MELIDA) NEGATIVE (NEGATIVE) Result Diagrams: 01/08/21 14:30 01/08/21 14:30 Sepsis Event Note - Evaluation Sepsis Screening Result: No Definite Risk - Focused Exam Vital Signs: Vital Signs Temp Pulse Resp BP Pulse Ox 01/08/21 14:28 97.6 F 75 20 167/87 H 98 - Problem List (1) Facial droop SNOMED Code(s): 81717754 ICD Code: R29.810 - FACIAL WEAKNESS Status: Acute Current Visit: Yes (2) CVA (cerebral vascular accident) SNOMED Code(s): 567029628 ICD Code: I63.9 - CEREBRAL INFARCTION, UNSPECIFIED Status: Suspected Current Visit: Yes (3) Ambulatory dysfunction SNOMED Code(s): 925337692 ICD Code: R26.2 - DIFFICULTY IN WALKING, NOT ELSEWHERE CLASSIFIED Status: Chronic Current Visit: No (4) BOOP (bronchiolitis obliterans with organizing pneumonia) SNOMED Code(s): 417185959 ICD Code: J84.89 - OTHER SPECIFIED INTERSTITIAL PULMONARY DISEASES Status: Chronic Current Visit: Yes (5) Chronic respiratory failure with hypoxia SNOMED Code(s): 429539670 ICD Code: J96.11 - CHRONIC RESPIRATORY FAILURE WITH HYPOXIA Status: Chronic Current Visit: Yes (6) Oxygen dependent SNOMED Code(s): 962842066886 ICD Code: Z99.81 - DEPENDENCE ON SUPPLEMENTAL OXYGEN Status: Chronic Current Visit: Yes (7) Hypothyroidism SNOMED Code(s): 15028145 ICD Code: E03.9 - HYPOTHYROIDISM, UNSPECIFIED Status: Chronic Current Visit: Yes (8) Arthritis SNOMED Code(s): 2318970 ICD Code: M19.90 - UNSPECIFIED OSTEOARTHRITIS, UNSPECIFIED SITE Status: Chronic Current Visit: Yes (9) History of DVT (deep vein thrombosis) SNOMED Code(s): 406870545 ICD Code: Z86.718 - PERSONAL HISTORY OF OTHER VENOUS THROMBOSIS AND EMBOLISM Status: Chronic Current Visit: Yes (10) Supratherapeutic INR SNOMED Code(s): 198722924 ICD Code: R79.1 - ABNORMAL COAGULATION PROFILE Status: Chronic Current Visit: Yes (11) Pulmonary fibrosis SNOMED Code(s): 26856405 ICD Code: J84.10 - PULMONARY FIBROSIS, UNSPECIFIED Status: Chronic Current Visit: Yes (12) Lactic acid acidosis SNOMED Code(s): 40118945 ICD Code: E87.2 - ACIDOSIS Status: Acute Current Visit: Yes Problem List Initiated/Reviewed/Updated: Yes Orders Last 24hrs: Active Orders 24 hr Category Date Time Status Patient Status [ADT] Routine ADT 01/08/21 15:50 Active Cardiac Monitoring [RC] . DIRECTED Care 01/08/21 14:29 Active EKG Documentation Completion [RC] STAT Care 01/08/21 14:28 Active Pulse Oximetry [RC] ASDIRECTED Care 01/08/21 14:29 Active Adult Diet [DIET] Diet 01/08/21 Dinner Active Brain w wo Cont [MR] Urgent Exams 01/08/21 16:58 Ordered CULTURE BLOOD [BC] Stat Lab 01/08/21 15:33 Received CULTURE BLOOD [BC] Stat Lab 01/08/21 15:39 Received Sodium Chloride 0.9% [Normal Saline] 1,000 ml Med 01/08/21 15:27 Active IV .Bolus Sodium Chloride 0.9% [Saline Flush] Med 01/08/21 14:28 Active 10 ml FLUSH ASDIRECTED PRN Sodium Chloride 0.9% [Saline Flush] Med 01/08/21 14:28 Active 2.5 ml FLUSH ASDIRECTED PRN Blood Culture x2 Reflex Set [OM.PC] Stat Oth 01/08/21 15:25 Ordered Saline Lock Insert [OM.PC] Stat Oth 01/08/21 14:29 Ordered Medication Orders Sodium Chloride (Normal Saline) 1,000 mls @ 100 mls/hr IV .Bolus ONE Stop: 01/09/21 01:26 Sodium Chloride (Saline Flush) 10 ml FLUSH ASDIRECTED PRN PRN Reason: Keep Vein Open Last Admin: 01/08/21 14:58 Dose: 10 ml Documented by: [id number] Sodium Chloride (Saline Flush) 2.5 ml FLUSH ASDIRECTED PRN PRN Reason: Keep Vein Open Last Admin: 01/08/21 14:58 Dose: 2.5 ml Documented by: TU Assessment/Plan Comment:: This 80-year-old male admitted with right facial droop, drooling and suspected CVA 1. Suspected CVA -Allow for permissive hypertension -Check lipid panel A1c and TSH -Obtain brain MRI -Monitor on telemetry for any arrhythmias -Echo already performed at outpatient clinic this morning will obtain records if possible -Neurochecks every 12 -Speech therapy and physical therapy consulted does not appear to need occupational therapy as he has no significant upper extremity deficits. -Patient quit smoking many years ago. 2. Leukocytosis/lactic acidosis -Patient on high-dose chronic steroids which is likely cause of leukocytosis -No sign of acute infection. -Lactic acid elevated at 2.6, could be related to chronic hypoxia related to pulmonary fibrosis. We will recheck this evening 3. Supratherapeutic INR -Has history of DVT in left leg -Hold Coumadin today recheck INR in a.m. - no signs acute bleeding 4. History BOOP/COPD/pulmonary fibrosis/chronic hypoxic respiratory failure -Continue oxygen 2 L at rest and up to 6 L with activity to keep sats 88% or greater. -Continue DuoNebs and home inhalers per med rec -Patient has not yet followed up with pulmonology has appointment on Wednesday with Dr. Burgess, pulmonology in [place] 5. Hypothyroidism -Continue levothyroxine VTE prophylaxis: Coumadin CODE STATUS: Full code Dispo: 1 to 2 days pending improvement - Mortality Measure Prognosis:: Good
[2021-01-08] MEDS ORDERED: Ondansetron 4 MG/2 ML SDV IVPUSH PRN (17:16)
[2021-01-08] MEDS ORDERED: Docusate Sodium 100 MG Cap PO PRN (17:16)
[2021-01-08] MEDS ORDERED: Acetaminophen 325 MG Tab PO PRN (17:16)
[2021-01-08] MEDS ORDERED: Albuterol/Ipratropium 3.0-0.5 MG/3 ML Neb Soln NEB PRN (18:00)
[2021-01-08] MEDS: predniSONE 20 MG Tab PO SCH (20:57)
[2021-01-08] MEDS ORDERED: atorvaSTATin 40 MG Tab PO SCH (21:00)
[2021-01-09 06:22] LABS: HEMOGLOBIN A1C 6.6 %
[2021-01-09 06:32] LABS: BLOOD UREA NITROGEN,BUN 34 mg/dL (7.0-18.0); CARBON DIOXIDE,CO2 34.4 mmol/L (21.0-32.0); CHLORIDE,CL 106 mmol/L (98-107); GLUCOSE RANDOM 149 mg/dL (74-106); POTASSIUM,K 4.6 mmol/L (3.5-5.1); SODIUM,NA 142 mmol/L (136-148)
[2021-01-09] MEDS ORDERED: Levothyroxine 150 MCG Tab PO SCH (07:30)
[2021-01-09] MEDS ORDERED: Furosemide 40 MG Tab PO SCH (09:00)
[2021-01-09] MEDS: predniSONE 20 MG Tab PO SCH (09:28)
[2021-01-09] MEDS ORDERED: Gadobenate Dimeglumine 529 MG/ML 20 ML SDV IVPUSH STA (12:22)
--- NOTE | 2021-01-09 15:04 | PCM.DCSUM1 ---
<Sandi Talavera M - Last Filed: 01/09/21 15:31> Discharge Summary - Hospital Course Brief History: This 80-year-old male with past medical history of BOOP pneumonia, subsequent pulmonary fibrosis, chronic hypoxic respiratory failure on 2 L of oxygen and up to 6 years of oxygen with activity, hypothyroidism, DVT on warfarin and arthritis presented to the ER today after home health nurse noted he had been drooling pretty constantly during her visit at his house with mild R facial droop. She also reported right upper extremity weakness. Per patient he reports the drooling has been on and off for the past few months and overall feels very deconditioned because of recent significant lung illness resulting in inability to ambulate long distances without fatigue and significant dyspnea. He has been seen by Dr. Joya in [place] regarding arthritis and has been treated recently with high-dose prednisone 30 mg twice daily. He reports he is otherwise been feeling fine at home recently. No fevers chills sinus congestion chest pain shortness of breath beyond his normal or palpitations. Today he had chest x-ray and echo completed at outpatient clinic with PCP. X-ray findings are improved per daughter. But continue to have some fibrotic appearance. Reports there is history of tobacco use many years ago but did quit. Rare alcohol use many years ago and no recreational drug use. Has no history of CVA in the past and no significant cardiac history per his recollection. In the ER leukocytosis noted at 18,000 hemoglobin 15.6 platelets 156,000 INR slightly elevated at 4.32 lactic acid elevated at 2.6. Sodium 144 potassium 4.4 BUN 35 creatinine 1.3 glucose mildly elevated at 140 magnesium 2.5 bilirubin 1.2 troponin negative UA negative Covid swab negative. Stroke code was called and he was evaluated with head CT which showed no acute intracranial abnormalities periventricular white matter changes consistent with chronic microvascular changes, diffuse volume loss. CTA of head and neck were also completed which show no intracranial proximal large vessel occlusion or flow limiting luminal stenosis. Mild atherosclerotic luminal stenosis of the proximal left internal carotid artery less than 50% stenosis by NASCET criteria. They did note tortuous and corrugated appearance of the cervical arterial vasculature right greater than left mid distal cervical segments of the ICAs which could reflect underlying fibromuscular dysplasia. He was treated with aspirin and 1 L normal saline bolus in the ER. Vital signs remained stable blood pressure 160s over 80s heart rate in the 70s EKG sinus rhythm no acute ischemic changes or arrhythmias. Patient was not completely thrilled regarding admission but did speak with daughter and is agreeable to staying overnight for MRI for further evaluation for possible CVA. PCP Dr. Gasca - Discharge Data Discharge Date: 01/09/21 Discharge Disposition: Home, W Home Health Agency 06 Condition: Good - Referral to Home Health Date of Face to Face Encounter: 01/09/21 Reason for Homebound Status: resume Primary Care Physician: Ambrocio Fraser Skilled Need: resume . INR check on Wednesday01/09/2021 - Discharge Diagnosis/Problem(s) (1) Facial droop SNOMED Code(s): 61639571 ICD Code: R29.810 - FACIAL WEAKNESS Status: Acute (2) CVA (cerebral vascular accident) SNOMED Code(s): 797173916 ICD Code: I63.9 - CEREBRAL INFARCTION, UNSPECIFIED Status: Ruled-out (3) Ambulatory dysfunction SNOMED Code(s): 568166232 ICD Code: R26.2 - DIFFICULTY IN WALKING, NOT ELSEWHERE CLASSIFIED Status: Chronic (4) BOOP (bronchiolitis obliterans with organizing pneumonia) SNOMED Code(s): 691199134 ICD Code: J84.89 - OTHER SPECIFIED INTERSTITIAL PULMONARY DISEASES Status: Chronic (5) Chronic respiratory failure with hypoxia SNOMED Code(s): 617337413 ICD Code: J96.11 - CHRONIC RESPIRATORY FAILURE WITH HYPOXIA Status: Chronic (6) Oxygen dependent SNOMED Code(s): 438635970757 ICD Code: Z99.81 - DEPENDENCE ON SUPPLEMENTAL OXYGEN Status: Chronic (7) Hypothyroidism SNOMED Code(s): 22304222 ICD Code: E03.9 - HYPOTHYROIDISM, UNSPECIFIED Status: Chronic (8) Arthritis SNOMED Code(s): 8120857 ICD Code: M19.90 - UNSPECIFIED OSTEOARTHRITIS, UNSPECIFIED SITE Status: Chronic (9) History of DVT (deep vein thrombosis) SNOMED Code(s): 682575958 ICD Code: Z86.718 - PERSONAL HISTORY OF OTHER VENOUS THROMBOSIS AND EMBOLISM Status: Chronic (10) Supratherapeutic INR SNOMED Code(s): 866178905 ICD Code: R79.1 - ABNORMAL COAGULATION PROFILE Status: Chronic (11) Pulmonary fibrosis SNOMED Code(s): 28474978 ICD Code: J84.10 - PULMONARY FIBROSIS, UNSPECIFIED Status: Chronic (12) Lactic acid acidosis SNOMED Code(s): 34309635 ICD Code: E87.2 - ACIDOSIS Status: Acute - Patient Summary/Data Consults: Consultations 01/08/21 17:16 PT Evaluation and Treatment [CONS] Routine REAMER HAND Evaluation and Treatment [CONS] Routine Hospital Course: Admission diagnosis Right facial droop with drooling Suspect CVA Discharge diagnoses Drooling Deconditioning Other PMH Boop pneumonia Subsequent pulmonary fibrosis Chronic hypoxic respiratory failure Oxygen dependent Hypothyroidism DVT on warfarin RA Pagan was admitted secondary to new onset of constant drooling noted to the right side of his mouth. Home health worker noted the drooling was more consistent and continuous along with right facial droop and right upper extremity weakness. Upon arrival to ER patient had no facial droop and had mild drooling. Patient reported this drooling had been going on and off for multiple months and that into last summer. Daughter wanted him to have stroke work-up. Head CT was negative in the ER CTA of head and neck did not show any significant stenosis or flow-limiting concerns. He was admitted and monitored overnight on telemetry. No arrhythmias noted. He continues to have mild drooling noted to the right side of his mouth. He reports this is normal. He was evaluated by physical therapy and felt to be safe with walker. He was also evaluated by speech therapy and had no concerns with swallowing. He had MRI of brain with and without contrast which revealed no evidence of acute intracranial abnormalities, moderate supratentorial white matter changes are nonspecific but likely related to small vessel ischemic disease with moderate cerebral volume loss. He is very adamant of going home today. lipid panel elevated total cholesterol 212 with LDL 128 triglycerides 58 HDL 72 he will need to be started on atorvastatin 40 mg and aspirin 81 mg daily and continue with warfarin. today Coumadin continues to be supratherapeutic. He will hold coumadin today and then take 2 mg 01/10 then 4 mg the following days. He will have INR rechecked on Saturday 01/13 with home health. He is to continue all breathing medications along with her medications at this time. Echo was completed as outpatient with PCPs office. No report at this time. He has follow-up with pulmonology next week. He is to return to the ER or clinic sooner if concerns should arise. Resume home health. I spoke with Bethany, daughter, about MRI findings as well as lab work. She was updated and appreciated this. He will be discharged home today follow-up with Dr. Trevino. INR check Wednesday with home health. Home health was updated on discharge. - Patient Instructions Diet: Heart Healthy Diet Activity: As Tolerated Driving: Do Not Drive Showering/Bathing: May Shower Notify Provider of: Fever, Increased Pain, Swelling and Redness, Drainage, Nausea and/or Vomiting Other/Special Instructions: Hold Coumadin today 01/09/2021. Take 2 mg on 01/10/2021 and then 4 mg daily after that with 2 mg scheduled on Fridays. INR to be rechecked on Wednesday with home health, they are aware. Dosing changes may occur after that. Monitor for signs of bleeding with addition of aspirin 81 daily. - Discharge Plan *PRESCRIPTION DRUG MONITORING PROGRAM REVIEWED*: Not Applicable *COPY OF PRESCRIPTION DRUG MONITORING REPORT IN PATIENT RONALDO: Not Applicable Prescriptions/Med Rec: Aspirin 81 mg PO DAILY #30 tab.chew atorvaSTATin [Lipitor] 40 mg PO BEDTIME #30 tablet Home Medications: Home Meds Folic Acid 1 mg PO DAILY 11/17/20 [History] Furosemide [Lasix] 40 mg PO DAILY 11/17/20 [History] Levothyroxine 150 mcg PO ACBREAKFAST 11/17/20 [History] Potassium Chloride [Klor-Con M20] 20 meq PO DAILY 11/17/20 [History] Warfarin [Coumadin] 4 mg PO SUMOTUWETHSA@1400 11/17/20 [History] Albuterol/Ipratropium [Combivent Respimat] 1 inhaler INH Q4H #1 inhaler 12/01/20 [Rx] Cholecalciferol (Vitamin D3) [Vitamin D3] 25 mcg PO DAILY #30 tablet 12/01/20 [Rx] Aspirin 81 mg PO DAILY #30 tab.chew 01/09/21 [Rx] Warfarin [Coumadin] 2 mg PO FR@1400 #0 01/09/21 [Rx] atorvaSTATin [Lipitor] 40 mg PO BEDTIME #30 tablet 01/09/21 [Rx] predniSONE 30 mg PO BID tablet 01/09/21 [Rx] Oxygen Therapy Mode: Nasal Cannula Patient Handouts: Aspirin, ASA chewable tablets, Atorvastatin tablets Referrals: Lev Gasca MD [Ordering Only Provider] - 01/20/21 10:30 am Jose Burgess MD [Consulting Physician] - 01/14/21 (keep previous appointment) - Discharge Summary/Plan Comment DC Time >30 min.: No - Patient Data Vitals - Most Recent: Last Vital Signs Temp 97.5 F 01/09/21 12:00 Pulse 75 01/09/21 12:00 Resp 18 01/09/21 12:00 BP 135/70 01/09/21 12:00 Pulse Ox 91 L 01/09/21 12:00 Weight - Most Recent: 117.208 kg I&O - Last 24 hours: Intake & Output 01/09/21 01/09/21 01/09/21 06:59 14:59 22:59 Intake Total 550 Output Total 650 Balance -100 Lab Results - Last 24 hrs: Laboratory Results - last 24 hr 01/08/21 01/08/21 01/08/21 Range/Units 14:30 14:53 16:05 WBC (4.0-11.0) K/uL RBC (4.50-5.90) M/uL Hgb (13.0-17.0) g/dL Hct (38.0-50.0) % MCV (80.0-98.0) fL MCH (27.0-32.0) pg MCHC (31.0-37.0) g/dL RDW Std Deviation (28.0-62.0) fl RDW Coeff of Sunny (11.0-15.0) % Plt Count (150-400) K/uL MPV (7.40-12.00) fL Neut % (Auto) (48.0-80.0) % Lymph % (Auto) (16.0-40.0) % Glynn % (Auto) (0.0-15.0) % Eos % (Auto) (0.0-7.0) % Baso % (Auto) (0.0-1.5) % Neut # (Auto) (1.4-5.7) K/uL Lymph # (Auto) (0.6-2.4) K/uL Glynn # (Auto) (0.0-0.8) K/uL Eos # (Auto) (0.0-0.7) K/uL Baso # (Auto) (0.0-0.1) K/uL Nucleated RBC % /100WBC Nucleated RBCs # K/uL INR Sodium 144 (136-148) mmol/L Potassium 4.4 (3.5-5.1) mmol/L Chloride 104 (98-107) mmol/L Carbon Dioxide 31.4 (21.0-32.0) mmol/L BUN 35 H (7.0-18.0) mg/dL Creatinine 1.3 (0.8-1.3) mg/dL Est Cr Clr Drug Dosing 55.64 mL/min Estimated GFR (MDRD) 53.1 ml/min Glucose 140 H (74-106) mg/dL POC Glucose (60-110) mg/dL Hemoglobin A1c (4.5 - 6.2) % Calcium 8.6 (8.5-10.1) mg/dL Magnesium 2.5 H (1.8-2.4) mg/dL Total Bilirubin 1.2 H (0.2-1.0) mg/dL AST 32 (15-37) IU/L ALT 69 H (14-63) IU/L Alkaline Phosphatase 79 (46-116) U/L Troponin I < 0.050 (0.000-0.056) ng/mL Total Protein 6.1 L (6.4-8.2) g/dL Albumin 3.2 L (3.4-5.0) g/dL Globulin 2.9 (2.6-4.0) g/dL Albumin/Globulin Ratio 1.1 (0.9-1.6) Triglycerides (0-200) mg/dL Cholesterol (50-200) mg/dL LDL Cholesterol, Calc (60-180) mg/dL VLDL Cholesterol (5-55) mg/dL HDL Cholesterol (40-60) mg/dL Cholesterol/HDL Ratio (3.3-6.0) TSH 3rd Generation (0.36-3.74) uIU/mL Urine Color YELLOW Urine Appearance CLEAR Urine pH 6.0 (5.0-8.0) Ur Specific [place] 1.010 (1.001-1.035) Urine Protein NEGATIVE (NEGATIVE) mg/dL Urine Glucose (UA) NEGATIVE (NEGATIVE) mg/dL Urine Ketones NEGATIVE (NEGATIVE) mg/dL Urine Occult Blood TRACE-INTACT H (NEGATIVE) Urine Nitrite NEGATIVE (NEGATIVE) Urine Bilirubin NEGATIVE (NEGATIVE) Urine Urobilinogen 0.2 (<2.0) EU/dL Ur Leukocyte Esterase NEGATIVE (NEGATIVE) Urine RBC 0-2 (0-2/HPF) Urine WBC NONE SEEN (0-5/HPF) Ur Epithelial Cells RARE (NONE-FEW) Urine Bacteria NOT SEEN (NEGATIVE) SARS-CoV-2 RNA (MELIDA) NEGATIVE (NEGATIVE) 01/09/21 01/09/21 01/09/21 Range/Units 05:55 05:55 05:55 WBC 10.90 (4.0-11.0) K/uL RBC 4.23 L (4.50-5.90) M/uL Hgb 13.2 (13.0-17.0) g/dL Hct 42.0 (38.0-50.0) % MCV 99.3 H (80.0-98.0) fL MCH 31.2 (27.0-32.0) pg MCHC 31.4 (31.0-37.0) g/dL RDW Std Deviation 65.6 H (28.0-62.0) fl RDW Coeff of Sunny 18 H (11.0-15.0) % Plt Count 140 L (150-400) K/uL MPV 11.30 (7.40-12.00) fL Neut % (Auto) 78.3 (48.0-80.0) % Lymph % (Auto) 14.4 L (16.0-40.0) % Glynn % (Auto) 7.0 (0.0-15.0) % Eos % (Auto) 0.2 (0.0-7.0) % Baso % (Auto) 0.1 (0.0-1.5) % Neut # (Auto) 8.5 H (1.4-5.7) K/uL Lymph # (Auto) 1.6 (0.6-2.4) K/uL Glynn # (Auto) 0.8 (0.0-0.8) K/uL Eos # (Auto) 0.0 (0.0-0.7) K/uL Baso # (Auto) 0.0 (0.0-0.1) K/uL Nucleated RBC % 0.0 /100WBC Nucleated RBCs # 0 K/uL INR 4.19 Sodium 142 (136-148) mmol/L Potassium 4.6 (3.5-5.1) mmol/L Chloride 106 (98-107) mmol/L Carbon Dioxide 34.4 H (21.0-32.0) mmol/L BUN 34 H (7.0-18.0) mg/dL Creatinine 1.1 (0.8-1.3) mg/dL Est Cr Clr Drug Dosing 64.89 mL/min Estimated GFR (MDRD) > 60.0 ml/min Glucose 149 H (74-106) mg/dL POC Glucose (60-110) mg/dL Hemoglobin A1c (4.5 - 6.2) % Calcium 8.3 L (8.5-10.1) mg/dL Magnesium 2.5 H (1.8-2.4) mg/dL Total Bilirubin (0.2-1.0) mg/dL AST (15-37) IU/L ALT (14-63) IU/L Alkaline Phosphatase (46-116) U/L Troponin I (0.000-0.056) ng/mL Total Protein (6.4-8.2) g/dL Albumin (3.4-5.0) g/dL Globulin (2.6-4.0) g/dL Albumin/Globulin Ratio (0.9-1.6) Triglycerides 58 (0-200) mg/dL Cholesterol 212 H (50-200) mg/dL LDL Cholesterol, Calc 128 (60-180) mg/dL VLDL Cholesterol 11 (5-55) mg/dL HDL Cholesterol 72 H (40-60) mg/dL Cholesterol/HDL Ratio 2.9 L (3.3-6.0) TSH 3rd Generation 0.38 (0.36-3.74) uIU/mL Urine Color Urine Appearance Urine pH (5.0-8.0) Ur Specific [place] (1.001-1.035) Urine Protein (NEGATIVE) mg/dL Urine Glucose (UA) (NEGATIVE) mg/dL Urine Ketones (NEGATIVE) mg/dL Urine Occult Blood (NEGATIVE) Urine Nitrite (NEGATIVE) Urine Bilirubin (NEGATIVE) Urine Urobilinogen (<2.0) EU/dL Ur Leukocyte Esterase (NEGATIVE) Urine RBC (0-2/HPF) Urine WBC (0-5/HPF) Ur Epithelial Cells (NONE-FEW) Urine Bacteria (NEGATIVE) SARS-CoV-2 RNA (MELIDA) (NEGATIVE) 01/09/21 01/09/21 01/09/21 Range/Units 05:55 06:38 13:01 WBC (4.0-11.0) K/uL RBC (4.50-5.90) M/uL Hgb (13.0-17.0) g/dL Hct (38.0-50.0) % MCV (80.0-98.0) fL MCH (27.0-32.0) pg MCHC (31.0-37.0) g/dL RDW Std Deviation (28.0-62.0) fl RDW Coeff of Sunny (11.0-15.0) % Plt Count (150-400) K/uL MPV (7.40-12.00) fL Neut % (Auto) (48.0-80.0) % Lymph % (Auto) (16.0-40.0) % Glynn % (Auto) (0.0-15.0) % Eos % (Auto) (0.0-7.0) % Baso % (Auto) (0.0-1.5) % Neut # (Auto) (1.4-5.7) K/uL Lymph # (Auto) (0.6-2.4) K/uL Glynn # (Auto) (0.0-0.8) K/uL Eos # (Auto) (0.0-0.7) K/uL Baso # (Auto) (0.0-0.1) K/uL Nucleated RBC % /100WBC Nucleated RBCs # K/uL INR Sodium (136-148) mmol/L Potassium (3.5-5.1) mmol/L Chloride (98-107) mmol/L Carbon Dioxide (21.0-32.0) mmol/L BUN (7.0-18.0) mg/dL Creatinine (0.8-1.3) mg/dL Est Cr Clr Drug Dosing mL/min Estimated GFR (MDRD) ml/min Glucose (74-106) mg/dL POC Glucose 118 H 133 H (60-110) mg/dL Hemoglobin A1c 6.6 H (4.5 - 6.2) % Calcium (8.5-10.1) mg/dL Magnesium (1.8-2.4) mg/dL Total Bilirubin (0.2-1.0) mg/dL AST (15-37) IU/L ALT (14-63) IU/L Alkaline Phosphatase (46-116) U/L Troponin I (0.000-0.056) ng/mL Total Protein (6.4-8.2) g/dL Albumin (3.4-5.0) g/dL Globulin (2.6-4.0) g/dL Albumin/Globulin Ratio (0.9-1.6) Triglycerides (0-200) mg/dL Cholesterol (50-200) mg/dL LDL Cholesterol, Calc (60-180) mg/dL VLDL Cholesterol (5-55) mg/dL HDL Cholesterol (40-60) mg/dL Cholesterol/HDL Ratio (3.3-6.0) TSH 3rd Generation (0.36-3.74) uIU/mL Urine Color Urine Appearance Urine pH (5.0-8.0) Ur Specific [place] (1.001-1.035) Urine Protein (NEGATIVE) mg/dL Urine Glucose (UA) (NEGATIVE) mg/dL Urine Ketones (NEGATIVE) mg/dL Urine Occult Blood (NEGATIVE) Urine Nitrite (NEGATIVE) Urine Bilirubin (NEGATIVE) Urine Urobilinogen (<2.0) EU/dL Ur Leukocyte Esterase (NEGATIVE) Urine RBC (0-2/HPF) Urine WBC (0-5/HPF) Ur Epithelial Cells (NONE-FEW) Urine Bacteria (NEGATIVE) SARS-CoV-2 RNA (MELIDA) (NEGATIVE) Med Orders - Current: Current Medications Acetaminophen (Tylenol) 650 mg PO Q4H PRN PRN Reason: Pain (Mild 1-3)/fever Albuterol/Ipratropium (Duoneb 3.0-0.5 Mg/3 Ml) 3 ml NEB Q4HRRT PRN PRN Reason: Shortness of Breath Atorvastatin Calcium (Lipitor) 80 mg PO BEDTIME [facility] Last Admin: 01/08/21 20:57 Dose: 80 mg Documented by: Docusate Sodium (Colace) 100 mg PO BID PRN PRN Reason: Constipation Furosemide (Lasix) 40 mg PO DAILY [facility] Last Admin: 01/09/21 09:28 Dose: 40 mg Documented by: Levothyroxine Sodium (Levothyroxine) 150 mcg PO ACBREAKFAST [facility] Last Admin: 01/09/21 06:41 Dose: 150 mcg Documented by: Ondansetron HCl (Zofran) 4 mg IVPUSH Q4H PRN PRN Reason: Nausea Prednisone (Prednisone) 30 mg PO BID [facility] Last Admin: 01/09/21 09:28 Dose: 30 mg Documented by: Sodium Chloride (Saline Flush) 2.5 ml FLUSH ASDIRECTED PRN PRN Reason: Keep Vein Open Discontinued Medications Aspirin (Aspirin) 324 mg PO ONETIME ONE Stop: 01/08/21 14:41 Last Admin: 01/08/21 14:57 Dose: 324 mg Documented by: Gadobenate Dimeglumine (Multihance) 20 ml IVPUSH ONETIME STA Stop: 01/09/21 12:23 Last Admin: 01/09/21 12:22 Dose: 20 ml Documented by: Sodium Chloride (Normal Saline) 1,000 mls @ 999 mls/hr IV .Bolus ONE Stop: 01/08/21 15:48 Last Admin: 01/08/21 14:57 Dose: 999 mls/hr Documented by: Sodium Chloride (Normal Saline) 1,000 mls @ 100 mls/hr IV .Bolus ONE Stop: 01/09/21 01:26 Last Admin: 01/08/21 17:35 Dose: Not Given Documented by: Iopamidol (Isovue Multipack-370 (76%)) 100 ml IVPUSH ONETIME STA Stop: 01/08/21 15:05 Last Admin: 01/08/21 15:05 Dose: 100 ml Documented by: Sodium Chloride (Saline Flush) 10 ml FLUSH ASDIRECTED PRN PRN Reason: Keep Vein Open Last Admin: 01/08/21 14:58 Dose: 10 ml Documented by: Sodium Chloride (Saline Flush) 2.5 ml FLUSH ASDIRECTED PRN PRN Reason: Keep Vein Open Last Admin: 01/08/21 14:58 Dose: 2.5 ml Documented by: - Exam General: Reports: Alert, Oriented, Cooperative, No Acute Distress HEENT: Reports: Other (No drooling noted today no facial droop.) Neck: Reports: Supple Lungs: Reports: Rhonchi. Denies: Normal Respiratory Effort (Dyspnea with exertion) Cardiovascular: Reports: Regular Rate, Regular Rhythm GI/Abdominal Exam: Normal Bowel Sounds, Soft, Non-Tender Back Exam: Reports: Normal Inspection, Full Range of Motion Wound/Incisions: Reports: Healing Well Neurological: Reports: No New Focal Deficit Psy/Mental Status: Reports: Alert, Normal Affect, Normal Mood <True Geiger - Last Filed: 01/14/21 11:06> Discharge Summary - Hospital Course Brief History: I have seen and evaluated the patient and agree with the residents note unless specified in my note - Referral to Home Health Primary [facility] Physician: [facility] - Patient Summary/Data Consults: Consultations 01/08/21 17:16 PT Evaluation and Treatment [CONS] Routine REAMER HAND Evaluation and Treatment [CONS] Routine - Patient Data Vitals - Most Recent: Last Vital Signs Temp 36.4 C 01/09/21 12:00 Pulse 75 01/09/21 12:00 Resp 18 01/09/21 12:00 BP 135/70 01/09/21 12:00 Pulse Ox 91 L 01/09/21 12:00 JENNY Results - Last 24 hrs: Microbiology 01/08/21 15:39 Aerobic Blood Culture - Final Blood - Venous - Lab Draw NO GROWTH AFTER 5 DAYS Anaerobic Blood Culture - Final NO GROWTH AFTER 5 DAYS 01/08/21 15:33 Aerobic Blood Culture - Final Blood - Venous NO GROWTH AFTER 5 DAYS Anaerobic Blood Culture - Final NO GROWTH AFTER 5 DAYS Med Orders - Current: Current Medications Discontinued Medications Acetaminophen (Tylenol) 650 mg PO Q4H PRN PRN Reason: Pain (Mild 1-3)/fever Albuterol/Ipratropium (Duoneb 3.0-0.5 Mg/3 Ml) 3 ml NEB Q4HRRT PRN PRN Reason: Shortness of Breath Aspirin (Aspirin) 324 mg PO ONETIME ONE Stop: 01/08/21 14:41 Last Admin: 01/08/21 14:57 Dose: 324 mg Documented by: Atorvastatin Calcium (Lipitor) 80 mg PO BEDTIME [facility] Last Admin: 01/08/21 20:57 Dose: 80 mg Documented by: Docusate Sodium (Colace) 100 mg PO BID PRN PRN Reason: Constipation Furosemide (Lasix) 40 mg PO DAILY [facility] Last Admin: 01/09/21 09:28 Dose: 40 mg Documented by: Gadobenate Dimeglumine (Multihance) 20 ml IVPUSH ONETIME STA Stop: 01/09/21 12:23 Last Admin: 01/09/21 12:22 Dose: 20 ml Documented by: Sodium Chloride (Normal Saline) 1,000 mls @ 999 mls/hr IV .Bolus ONE Stop: 01/08/21 15:48 Last Admin: 01/08/21 14:57 Dose: 999 mls/hr Documented by: Sodium Chloride (Normal Saline) 1,000 mls @ 100 mls/hr IV .Bolus ONE Stop: 01/09/21 01:26 Last Admin: 01/08/21 17:35 Dose: Not Given Documented by: Iopamidol (Isovue Multipack-370 (76%)) 100 ml IVPUSH ONETIME STA Stop: 01/08/21 15:05 Last Admin: 01/08/21 15:05 Dose: 100 ml Documented by: Levothyroxine Sodium (Levothyroxine) 150 mcg PO ACBREAKFAST [facility] Last Admin: 01/09/21 06:41 Dose: 150 mcg Documented by: Ondansetron HCl (Zofran) 4 mg IVPUSH Q4H PRN PRN Reason: Nausea Prednisone (Prednisone) 30 mg PO BID [facility] Last Admin: 01/09/21 09:28 Dose: 30 mg Documented by: Sodium Chloride (Saline Flush) 10 ml FLUSH ASDIRECTED PRN PRN Reason: Keep Vein Open Last Admin: 01/08/21 14:58 Dose: 10 ml Documented by: Sodium Chloride (Saline Flush) 2.5 ml FLUSH ASDIRECTED PRN PRN Reason: Keep Vein Open Last Admin: 01/08/21 14:58 Dose: 2.5 ml Documented by: Sodium Chloride (Saline Flush) 2.5 ml FLUSH ASDIRECTED PRN PRN Reason: Keep Vein Open
--- NOTE | 2021-01-10 17:25 | MR ---
EXAM DATE: 01/08/21 PATIENT'S AGE: 80 Patient: RUDY SAUNDERS Facility: [facility] Site Site : 1940 Study: MRI-Head W/ and W/O Cont [id number] 1:19:56 PM Ordering Physician: LUBNA PATE Final Report: Indication: RT FACIAL DROOP, DROOLING, R/O STROKE Technique: Noncontrast sagittal T1, axial FLAIR, T2 turbo spine echo, SWI, and diffusion weighted images. Supplemental post contrast T1 weighted axial and coronal sequences are provided after administration of 20 mL gadolinium-based IV contrast. Comparison: CT and CTA head and neck 01/08/2021 Findings: Moderate patchy regions of increased T2 signal within the periventricular and subcortical white matter of both cerebral hemispheres. Moderate cerebral volume loss. 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 The ventricles, sulci and gyri are of normal size, shape and contour for age and degree of atrophy. No regions of restricted diffusion. Midline structures are centrally located. No convincing evidence of suspicious intra- or extra-axial fluid collections. Mild mucosal thickening in the right maxillary sinus. Bilateral pseudophakia. Left scleral buckle. Impression: 1. No radiographic evidence of acute intracranial abnormalities. 2. Moderate supratentorial white matter changes are non-specific but statistically most likely related to small vessel ischemic disease. Moderate cerebral volume loss. 3. No abnormal enhancement. Dictated by Dejon Liz MD @ Jan 09 2021 1:43PM Signed by: Dejon Liz MD @01/09/2021 1:51:43 PM (Electronic Signature) Report Signed by Proxy. [facility]
== END 2021-01-09 16:30 | disposition home health service (06) ==
LOC: MW.ED 14:27 → MW.MS 17:14
PROVIDERS: ADMIT Student in an Organized Health Care Education/Training Program; ATTEND Student in an Organized Health Care Education/Training Program
DX: I63.9 Cerebral infarction, unspecified (principal); R29.810 Facial weakness; R26.2 Difficulty in walking, not elsewhere classified; J84.89 Other specified interstitial pulmonary diseases; J96.11 Chronic respiratory failure with hypoxia; E03.9 Hypothyroidism, unspecified; M19.90 Unspecified osteoarthritis, unspecified site; E87.2 Acidosis; J84.10 Pulmonary fibrosis, unspecified; E66.9 Obesity, unspecified; Z20.822 Contact with and (suspected) exposure to COVID-19; Z86.718 Personal history of other venous thrombosis and embolism; Z79.01 Long term (current) use of anticoagulants; Z87.891 Personal history of nicotine dependence; Z79.899 Other long term (current) drug therapy; Z87.01 Personal history of pneumonia (recurrent); Z87.09 Personal history of other diseases of the respiratory system; Z99.81 Dependence on supplemental oxygen; Z68.31 Body mass index [BMI] 31.0-31.9, adult
CPT/HCPCS: 36415; 70450; 70496; 70498; 70553; 80048; 80053; 80061; 81001; 82962; 83036; 83605; 83735; 84443; 84484; 85025; 85610; 85730; 87040; 92610; 93005; 97161; 99285; A9270; A9577; G0378; J7030; Q9967; U0002; 99291

== ENCOUNTER 2021-04-04 15:23 | Inpatient (IN) | payer MEDICARE, BC ==
[2021-04-04] MEDS ORDERED: Aspirin 81 MG Tab.Chew PO ONE (16:12)
--- NOTE | 2021-04-04 16:22 | PCM.EKG ---
#1 Interpretation EKG Date: 04/04/21 Time: 16:10 Rhythm: NSR Rate (Beats/Min): 91 Tolstoy: LAD-Left Tolstoy Deviation P-Wave: Present QRS: Normal ST-T: Normal QT: Normal Comparison: No Change (01/27/21) EKG Interpretation Comments: Sinus Rhythm occasional PVC
[2021-04-04 17:10] LABS: BLOOD UREA NITROGEN,BUN 18 mg/dL (7.0-18.0); CARBON DIOXIDE,CO2 32.4 mmol/L (21.0-32.0); CHLORIDE,CL 101 mmol/L (98-107); GLUCOSE RANDOM 380 mg/dL (74-106); POTASSIUM,K 4.2 mmol/L (3.5-5.1); SODIUM,NA 139 mmol/L (136-148)
--- NOTE | 2021-04-04 17:10 | CR ---
Indication: Shortness of breath Comparison: Single-view chest January 29, 2021 Technique: Single AP view chest Findings: There is hyperinflation and chronic interstitial change. There are again seen increased interstitial and airspace opacities throughout the bilateral hemithoraces likely representing residual pulmonary edema and/or multifocal infiltrates with slightly improved aeration of the right lower lobe. The cardiac silhouette is markedly enlarged with a tortuous thoracic aorta. A pericardial effusion is not excluded. The bony thorax is grossly intact. Impression: Persistent hyperinflation and extensive interstitial changes likely representing pulmonary edema and/or multifocal infiltrates with superimposed pulmonary fibrosis. Enlarged cardiac silhouette is again seen, a pericardial effusion cannot be excluded. Dictated by Kurt Austin MD @ 04/04/2021 5:07:[address] Kurt Austin @ Apr 04 2021 5:07PM
--- NOTE | 2021-04-04 17:28 | EDM.PDOC ---
<Arden Haas - Last Filed: 04/04/21 19:23> ED HPI GENERAL MEDICAL PROBLEM - General Chief Complaint: Skin Complaint Stated Complaint: REFFERAL Time Seen by Provider: 04/04/21 15:25 - History of Present Illness INITIAL COMMENTS - FREE TEXT/NARRATIVE: CHIEF COMPLAINT(S): "Evidently, I do not look good." HISTORY OF PRESENT ILLNESS: This is a 80-year-old man with a past medical history of left lower extremity DVT, COPD, chronic respiratory failure, pulmonary fibrosis with multiple recent admissions for pneumonia who is a resident at [facility] for physical therapy who comes to the emergency department with a chief complaint of "evidently, I do not look good." The patient currently has no complaints and states that he is evidently in the hospital because he does not look good. He denies any chest pain, shortness of breath, abdominal pain, nausea or vomiting. Denies any fevers or chills. Per the daughter who is in presents the doctor at [facility] sent in to the emergency department because recently he got his Rituxan shot and they noticed that he had a left upper arm cellulitis that extended from the mid upper arm all the way down to the wrist. She states that they started him on doxycycline and the redness in the upper arm has improved however the lower part of the arm and hand has started to blister. She states that in addition to this he was doing well at physical therapy where they were able to get him to do sitting exercises while on 4 L and maintaining his oxygen saturation in the 90s. She states that he still requires 8 L while ambulating however over the last couple of days his oxygen even while sitting has decreased requiring more oxygen. She states that he does appear to have increased edema of his body. REVIEW OF SYSTEMS: Constitutional: Denies fever, chills. Eyes: Denies eye pain Ears, Nose, Mouth, & Throat: Denies earache Cardiovascular: Denies chest pain Respiratory: Denies shortness of breath Gastrointestinal: Denies Nausea, vomiting, diarrhea, hematochezia. Genitourinary: Denies hematuria Skin:Denies a rash MSK: Denies joint pain Neurological: Denies blurred vision Psychiatric: Denies depression PAST MEDICAL HISTORY: As per history of present illness and as reviewed below otherwise noncontributory. SURGICAL HISTORY: As per history of present illness and as reviewed below otherwise noncontributory. SOCIAL HISTORY: As per history of present illness and as reviewed below otherwise noncontributory. FAMILY HISTORY: As per history of present illness and as reviewed below otherwise noncontributory. EXAMINATION OF ORGAN SYSTEMS/BODY AREAS: Constitutional: Blood pressure is 172/98, heart rate 93, respiratory rate 18 with an oxygen saturation of 96% on 8 L nasal cannula. Temperature 37.1 General: Obese gentleman who does not appear to be any acute distress Psychiatric: Appears slightly bothered but is cooperative. Eyes: No scleral icterus or conjunctival erythema pupils are equal round reactive to light. ENMT: Moist mucous membranes. No pharyngeal erythema Cardiovascular: Regular, rate, and rhythm. No gallops, murmurs, or rubs. Bilateral upper extremity pulses symmetric and intact. There is 3+ pitting edema of the lower extremities extending up to the thighs. Left lower extremity is slightly larger than the left and there is a known DVT in this left lower extremity. Distal pulses and capillary refill are intact. No JVD. Respiratory: Lungs clear to auscultation bilaterally. No wheezes, rales, or rhonchi. Patient is speaking in full sentences. Gastrointestinal: Soft, distended, nontender. No rebound or guarding. Normoactive bowel sounds Genitourinary: No suprapubic tenderness Musculoskeletal: Normal range of motion. Skin: The patient has a scaly red rash to his left upper extremity which extends from the medial side of his left upper arm all the way down to his hand. There are some clear blisters on the posterior aspect of the left hand. This area is mildly tender to palpation. There is no crepitus noted. Neurological: Alert, GCS 15 sensation intact distally MEDICAL DECISION MAKING AND COURSE IN THE ED WITH INTERPRETATION/REVIEW OF DIAGNOSTIC STUDIES: This is a 80-year-old man with a past medical history of left lower extremity DVT, COPD, chronic respiratory failure, pulmonary fibrosis with multiple recent admissions for pneumonia who is a resident at [facility] for physical therapy who comes to the emergency department with what appears to be left upper extremity cellulitis with some blistering and anasarca. At this time the patient's examination does not reveal any pain out of proportion and there was no crepitus however we will obtain a CT of the upper extremity to evaluate for any free air. The patient is afebrile and is saturating appropriately on 8 L. We will try to transition the patient's oxygen downwards. Patient does have significant edema therefore we will obtain a cardiac work-up including BNP in full laboratory analysis. Will obtain TSH and T4. Will obtain a chest x-ray. We will start the patient on ceftriaxone. Laboratory: CBC reveals a leukocytosis of 12.42 with neutrophilic predominance and segmented neutrophils. CMP reveals metabolic alkalosis with a bicarbonate of 32.4, hyperglycemia at 380, hypocalcemia at 7.9, mild elevation ALT at 81, hypoalbuminemia at 2.4. Troponin is negative. BNP is 168. TSH is 0.22, T4 is 1.43. Covid is negative. The radiological images were viewed by myself along with reading the report from the radiologist. Chest x-ray does not reveal any acute cardiopulmonary process. There is persistent hyperinflation and extensive interstitial changes likely representing pulmonary edema and/or multifocal infiltrates with superimposed pulmonary fibrosis. There infiltrates are slightly improved in the right lower lobe. There was a delay in obtaining the patient's upper extremity CT as the patient was having difficulty maintaining position and his IV line did infiltrate. We did place an additional IV line and obtain CT. Prior to CT I did have a discussion with daughter and patient at bedside that I would like to admit them to the hospital pending their CT. They were amenable to this plan. The patient was signed out to oncoming day team physician pending CT results. DISPOSITION: Patient was signed out to oncoming night team physician pending CT results and disposition CONDITION: Fair PROCEDURES: None FINAL IMPRESSION(S)/DIAGNOSES: 1. Acute left upper extremity cellulitis 2. Acute anasarca likely secondary to hypoalbuminemia Arden Haas M.D. - Related Data Allergies Allergy/AdvReac Type Severity Reaction Status Date / Time No Known Allergies Allergy Verified 04/04/21 23:46 Home Meds: Home Meds Folic Acid 1 mg PO DAILY 11/17/20 [History] Furosemide [Lasix] 60 mg PO DAILY 11/17/20 [History] Levothyroxine 150 mcg PO ACBREAKFAST 11/17/20 [History] Potassium Chloride [Klor-Con M20] 20 meq PO DAILY 11/17/20 [History] atorvaSTATin [Lipitor] 40 mg PO BEDTIME 01/28/21 [History] predniSONE [Prednisone] 20 mg PO DAILY 01/28/21 [History] Cyanocobalamin (Vitamin B12) [Vitamin B12] 500 mcg PO DAILY #14 tablet 02/10/21 [Rx] Acetaminophen 650 mg PO Q4H PRN 04/04/21 [History] Ascorbic Acid 500 mg PO DAILY 04/04/21 [History] Aspirin 81 mg PO DAILY 04/04/21 [History] Budesonide [Pulmicort] 1 ampule INH TID 04/04/21 [History] Cholecalciferol (Vitamin D3) [Vitamin D3] 2,000 unit PO DAILY 04/04/21 [History] Docusate Sodium 100 mg PO DAILY 04/04/21 [History] Doxycycline [Doxycycline Hyclate] 100 mg PO BID 04/04/21 [History] Ipratropium/Albuterol Sulfate [Iprat-Albut 0.5-3(2.5) MG/3 ML] 3 ml IH TID 04/04/21 [History] Vitamin E 400 unit PO DAILY 04/04/21 [History] predniSONE [Prednisone] 10 mg PO BEDTIME 04/04/21 [History] Past Medical History - Past Health History Medical/Surgical History: Denies Medical/Surgical History HEENT History: Reports: Cataract, Hard of Hearing, Macular Degeneration Cardiovascular History: Reports: Blood Clots/VTE/DVT, High Cholesterol Respiratory History: Reports: Pneumonia, Recurrent, Pulmonary Fibrosis Gastrointestinal History: Reports: None Genitourinary History: Reports: None Musculoskeletal History: Reports: Arthritis, Fracture, Osteoarthritis, Other (See Below) Other Musculoskeletal History: fx right knee fx left lower leg, fx left wrist Neurological History: Reports: None Psychiatric History: Reports: None Endocrine/Metabolic History: Reports: None, Obesity/BMI 30+ Hematologic History: Reports: Other (See Below) Other Hematologic History: Blood clots? Immunologic History: Reports: None Oncologic (Cancer) History: Reports: None Dermatologic History: Reports: Cellulitis - Infectious Disease History Infectious Disease History: Reports: Chicken Pox, Measles, Mumps - Past Surgical History Head Surgeries/Procedures: Reports: None HEENT Surgical History: Reports: Cataract Surgery Other HEENT Surgeries/Procedures: Wears reading glasses GI Surgical History: Reports: Cholecystectomy, Colonoscopy Musculoskeletal Surgical History: Reports: Other (See Below) Social & Family History - Family History Family Medical History: No Pertinent Family History - Tobacco Use Tobacco Use Status *Q: Never Tobacco User - Caffeine Use Caffeine Use: Reports: Coffee, Soda - Recreational Drug Use Recreational Drug Use: No - Living Situation & Occupation Living situation: Reports: with Family (Lives with daughter, recently started living with her due to significant lung disease this winter.) Occupation: Retired ED ROS GENERAL - Review of Systems Review Of Systems: See Below ED EXAM, GENERAL - Physical Exam Exam: See Below Departure - Departure Disposition: Admitted As Inpatient 66 Clinical Impression: Hypoalbuminemia, Anasarca Cellulitis Qualifiers: Site of cellulitis: extremity Site of cellulitis of extremity: upper extremity Laterality: left Qualified Code(s): L03.114 - Cellulitis of left upper limb - Discharge Information Sepsis Event Note (ED) - Evaluation Sepsis Screening Result: No Definite Risk <Velasquez Arzate - Last Filed: 04/05/21 04:04> ED HPI GENERAL MEDICAL PROBLEM - History of Present Illness INITIAL COMMENTS - FREE TEXT/NARRATIVE: 8:15 PM: Signout received from Dr. Patel at 7 PM. This is a 80-year-old gentleman with a complicated past medical history who presents ER today secondary to left upper extremity swelling, redness, bullae to his dorsum of his left hand. Patient has been started on antibiotics at [facility]. Patient also has a significant amount of anasarca most likely secondary to his hypoalbuminemia. From reviewing his records, patient does have a history of a DVT. Patient had been on warfarin prior to admission to [facility] but this time it appears as though warfarin has been stopped. It is unclear when the warfarin has been discontinued. While the patient was in the hospital he was noted to have a abdominal wall hematoma and the warfarin was held at that time with the intention of restarting it when he was readmitted to [facility]. He is currently not on warfarin therapy per the med sheet from [facility]. Patient has CT scan of his left upper extremity which revealed a significant amount of edema versus cellulitis without evidence of air or abscess formation. Patient has been started on antibiotics here in the ED. Patient does have an elevated WBC count with a left shift. An ultrasound of his left upper extremity rule out DVT given his history has been ordered. I have discussed the case with Dr. Loo who agrees with plan for admission but has requested the ultrasound to any significant clot burden. ED ROS GENERAL - Review of Systems Review Of Systems: See Below ED EXAM, GENERAL - Physical Exam Exam: See Below Course - Vital Signs Last Recorded V/S: Last Vital Signs Temp 96.7 F L 04/04/21 22:37 Pulse 73 04/04/21 22:37 Resp 20 04/04/21 22:37 BP 155/82 H 04/04/21 22:37 Pulse Ox 90 L 04/04/21 22:45 - Orders/Labs/Meds Orders: Active Orders 24 hr Category Date Time Status Cardiac Monitoring [RC] Q8H Care 04/04/21 16:12 Active Pulse Oximetry [RC] ASDIRECTED Care 04/04/21 16:12 Active CULTURE BLOOD [BC] Stat Lab 04/04/21 19:46 Received CULTURE BLOOD [BC] Stat Lab 04/04/21 19:46 Received Blood Culture x2 Reflex Set [OM.PC] Stat Oth 04/04/21 19:30 Ordered Medication Orders Albuterol/Ipratropium (Albuterol/Ipratropium 3.0-0.5 Mg/3 Ml Neb Soln) 3 ml NEB Q4HRRT PRN PRN Reason: Shortness of Breath Piperacillin Sod/Tazobactam (Sod 3.375 gm/ Sodium Chloride) 50 mls @ 100 mls/hr IV Q8H SUJATHA Labs: Laboratory Tests 04/04/21 04/04/21 04/04/21 Range/Units 16:32 16:32 16:32 WBC 12.42 H (4.0-11.0) K/uL RBC 4.32 L (4.50-5.90) M/uL Hgb 14.3 (13.0-17.0) g/dL Hct 44.5 (38.0-50.0) % MCV 103.0 H (80.0-98.0) fL MCH 33.1 H (27.0-32.0) pg MCHC 32.1 (31.0-37.0) g/dL RDW Std Deviation 55.0 (28.0-62.0) fl RDW Coeff of Sunny 15 (11.0-15.0) % Plt Count 154 (150-400) K/uL MPV 11.70 (7.40-12.00) fL Add Manual Diff YES Neutrophils % (Manual) 86 H (48.0-80.0) % Band Neutrophils % 2 % Lymphocytes % (Manual) 4 L (16.0-40.0) % Monocytes % (Manual) 5 (0.0-15.0) % Eosinophils % (Manual) 1 (0.0-7.0) % Metamyelocytes % 2 % Nucleated RBC % 0.0 /100WBC Absolute Seg Neuts 10.7 H (1.4-5.7) Band Neutrophils # 0.2 Lymphocytes # (Manual) 0.5 L (0.6-2.4) Monocytes # (Manual) 0.6 (0.0-0.8) Eosinophils # (Manual) 0.1 (0.0-0.7) Absolute Metamyelocyte 0.2 Nucleated RBCs # 0 K/uL INR Lactate (0.20-2.00) mmol/L Sodium 139 (136-148) mmol/L Potassium 4.2 (3.5-5.1) mmol/L Chloride 101 (98-107) mmol/L Carbon Dioxide 32.4 H (21.0-32.0) mmol/L BUN 18 (7.0-18.0) mg/dL Creatinine 1.3 (0.8-1.3) mg/dL Est Cr Clr Drug Dosing 55.64 mL/min Estimated GFR (MDRD) 53.1 ml/min Glucose 380 H (74-106) mg/dL Calcium 7.9 L (8.5-10.1) mg/dL Magnesium 2.0 (1.8-2.4) mg/dL Total Bilirubin 0.6 (0.2-1.0) mg/dL AST 33 (15-37) IU/L ALT 81 H (14-63) IU/L Alkaline Phosphatase 77 (46-116) U/L Troponin I < 0.050 (0.000-0.056) ng/mL B-Natriuretic Peptide 168 H (<100) PG/ML Total Protein 5.7 L (6.4-8.2) g/dL Albumin 2.4 L (3.4-5.0) g/dL Globulin 3.3 (2.6-4.0) g/dL Albumin/Globulin Ratio 0.7 L (0.9-1.6) Free T4 1.43 (0.76-1.46) ng/dL TSH 3rd Generation 0.22 L (0.36-3.74) uIU/mL SARS-CoV-2 RNA (MELIDA) (NEGATIVE) 04/04/21 04/04/21 04/04/21 Range/Units 16:32 16:36 19:52 WBC (4.0-11.0) K/uL RBC (4.50-5.90) M/uL Hgb (13.0-17.0) g/dL Hct (38.0-50.0) % MCV (80.0-98.0) fL MCH (27.0-32.0) pg MCHC (31.0-37.0) g/dL RDW Std Deviation (28.0-62.0) fl RDW Coeff of Sunny (11.0-15.0) % Plt Count (150-400) K/uL MPV (7.40-12.00) fL Add Manual Diff Neutrophils % (Manual) (48.0-80.0) % Band Neutrophils % % Lymphocytes % (Manual) (16.0-40.0) % Monocytes % (Manual) (0.0-15.0) % Eosinophils % (Manual) (0.0-7.0) % Metamyelocytes % % Nucleated RBC % /100WBC Absolute Seg Neuts (1.4-5.7) Band Neutrophils # Lymphocytes # (Manual) (0.6-2.4) Monocytes # (Manual) (0.0-0.8) Eosinophils # (Manual) (0.0-0.7) Absolute Metamyelocyte Nucleated RBCs # K/uL INR 1.73 Lactate 1.4 (0.20-2.00) mmol/L Sodium (136-148) mmol/L Potassium (3.5-5.1) mmol/L Chloride (98-107) mmol/L Carbon Dioxide (21.0-32.0) mmol/L BUN (7.0-18.0) mg/dL Creatinine (0.8-1.3) mg/dL Est Cr Clr Drug Dosing mL/min Estimated GFR (MDRD) ml/min Glucose (74-106) mg/dL Calcium (8.5-10.1) mg/dL Magnesium (1.8-2.4) mg/dL Total Bilirubin (0.2-1.0) mg/dL AST (15-37) IU/L ALT (14-63) IU/L Alkaline Phosphatase (46-116) U/L Troponin I (0.000-0.056) ng/mL B-Natriuretic Peptide (<100) PG/ML Total Protein (6.4-8.2) g/dL Albumin (3.4-5.0) g/dL Globulin (2.6-4.0) g/dL Albumin/Globulin Ratio (0.9-1.6) Free T4 (0.76-1.46) ng/dL TSH 3rd Generation (0.36-3.74) uIU/mL SARS-CoV-2 RNA (MELIDA) NEGATIVE (NEGATIVE) Meds: Medications Generic Name Dose Route Start Last Admin Trade Name Freq PRN Reason Stop Dose Admin Albuterol/Ipratropium 3 ml 04/04/21 22:25 Albuterol/Ipratropium 3.0-0.5 Mg/3 Ml Neb Soln NEB Q4HRRT PRN Shortness of Breath Piperacillin Sod/Tazobactam 50 mls @ 100 mls/hr 04/05/21 06:00 Sod 3.375 gm/ Sodium Chloride IV Q8H SUJATHA Discontinued Medications Generic Name Dose Route Start Last Admin Trade Name Freq PRN Reason Stop Dose Admin Aspirin 324 mg 04/04/21 16:12 04/04/21 16:26 Aspirin 81 Mg Tab.Chew PO 04/04/21 16:13 324 mg ONETIME ONE Administration Furosemide 20 mg 04/04/21 22:17 04/04/21 23:02 Furosemide 20 Mg/2 Ml Vial IVPUSH 04/04/21 22:18 20 mg ONETIME ONE Administration Ceftriaxone Sodium/Dextrose 2 50 mls @ 100 mls/hr 04/04/21 17:29 04/04/21 17 :45 gm/ Premix IV 04/04/21 17:58 100 mls/hr ONETIME ONE Administration Piperacillin Sod/Tazobactam 50 mls @ 100 mls/hr 04/04/21 21:03 04/04/21 21:49 Sod 3.375 gm/ Sodium Chloride IV 04/04/21 21:32 100 mls/hr ONETIME ONE Administration Iopamidol 100 ml 04/04/21 18:42 04/04/21 18:44 Iopamidol 755 Mg/Ml 500 Ml Multipack Bottle IVPUSH 04/04/21 18:43 100 ml ONETIME ONE Administration Departure - Departure Time of Disposition: 20:00 Condition: Good Sepsis Event Note (ED) - Focused Exam Vital Signs: Vital Signs Temp Pulse Resp BP Pulse Ox 04/04/21 20:08 74 16 143/77 H 94 L 04/04/21 19:38 76 18 161/85 H 97 04/04/21 18:38 80 16 142/86 H 96 04/04/21 16:30 95 18 151/90 H 95 04/04/21 16:04 98.7 F 93 18 172/98 H 96 - My Orders Last 24 Hours: My Active Orders 04/04/21 19:30 Blood Culture x2 Reflex Set [OM.PC] Stat 04/04/21 19:46 CULTURE BLOOD [BC] Stat CULTURE BLOOD [BC] Stat - Assessment/Plan Last 24 Hours: My Active Orders 04/04/21 19:30 Blood Culture x2 Reflex Set [OM.PC] Stat 04/04/21 19:46 CULTURE BLOOD [BC] Stat CULTURE BLOOD [BC] Stat
[2021-04-04] MEDS ORDERED: cefTRIAXone 2 GM in Premix Bag 1 BAG IV ONE (17:29)
[2021-04-04] MEDS ORDERED: Iopamidol 755 MG/ML 500 ML Multipack Bottle IVPUSH ONE (18:42)
--- NOTE | 2021-04-04 19:38 | CT ---
HISTORY: Infection. Evaluate for gas. TECHNIQUE: CT left forearm without and with IV contrast. 100 mL Isovue-370 IV. COMPARISON: None. FINDINGS: Confluent edema/non loculated fluid in the subcutaneous fat in the antecubital fossa. Moderate subcutaneous fat stranding elsewhere in the forearm and wrist. Possible bulla in the dorsum of the hand. No soft tissue gas. No fluid in the deep fascial planes. Atrophy of portions of the forearm musculature. Moderate osteoarthritis of the elbow. Moderate osteoarthritis of the 1st carpometacarpal and triscaphe joints. Osteoarthritis of the radiocarpal joints. No erosions. No fracture. Small elbow joint effusion. IMPRESSION: 1. Infiltration of subcutaneous fat from the elbow through the hand from edema or cellulitis. Confluent edema/non loculated fluid in the subcutaneous fat in the antecubital fossa. No well-defined fluid collection at the elbow or in the forearm. No soft tissue gas. 2. Possible bulla on the dorsum of the hand. 3. Small elbow joint effusion. No acute bone abnormality. Please note that all CT scans at this facility use dose modulation, iterative reconstruction, and/or weight-based dosing when appropriate to reduce radiation dose to as low as reasonably achievable. Dictated by Manuel Sesay MD @ 04/04/2021 7:37:[address] Manuel Sesay @ Apr 04 2021 7:37PM
--- NOTE | 2021-04-04 20:58 | US ---
INDICATION: Left upper extremity swelling TECHNIQUE: Ultrasound venous duplex upper left extremity. Compression venous exam was performed using hickey-scale, color Doppler, and spectral Doppler imaging. COMPARISON: CT from earlier today FINDINGS: The left axillary is patent with normal waveforms. The brachial, basilic, and cephalic veins are fully compressible. There is a 1.6 x 2.2 cm area of heterogeneous fluid located 2 cm below the level of the left elbow. There is edema in the left forearm. IMPRESSION: No DVT in the left upper extremity veins. Fluid just distal to the elbow joint and edema in the lower extremity consistent with the CT findings. Dictated by Kalina Pozo MD @ 04/04/2021 8:57:[address] Kalina Pozo @ Apr 04 2021 8:57PM
[2021-04-04] MEDS ORDERED: Piperacillin/Tazobactam 3.375 GM in Sodium Chloride 0.9% 50 ML IV ONE (21:03)
[2021-04-04] MEDS ORDERED: Furosemide 20 MG/2 ML VIAL IVPUSH ONE (22:17)
[2021-04-04] MEDS ORDERED: Albuterol/Ipratropium 3.0-0.5 MG/3 ML Neb Soln NEB PRN (22:25)
--- NOTE | 2021-04-05 00:42 | PCM.HP.2 ---
H&P History of Present Illness - General Date of Service: 04/05/21 Admit Problem/Dx: Admission Diagnosis/Problem Admission Diagnosis/Problem Cellulitis - History of Present Illness Initial Comments - Free Text/Narative: Patient is a 80-year-old man with a past medical history of left lower extremity DVT, COPD, chronic respiratory failure, pulmonary fibrosis with multiple recent admissions for pneumonia who is a resident at [facility] for physical therapy who comes to the emergency department with a chief complaint of left arm swelling and redness, Patient denies any chest pain, shortness of breath, abdominal pain, nausea or vomiting. Denies any fevers or chills. Per family, patient recently Rituxan shot and they noticed that he had a left upper arm cellulitis that extended from the mid upper arm all the way down to the wrist. Patient was started him on doxycycline and the redness in the upper arm has improved however the lower part of the arm and hand has started to blister. Patient has CT scan of his left upper extremity which revealed a significant amount of edema versus cellulitis without evidence of air or abscess formation. Patient has been started on antibiotics here in the ED. Patient does have an elevated WBC count with a left shift. An ultrasound of his left upper extremity was done to rule out DVT. Patient was admitted for further management. - Related Data Allergies/Adverse Reactions: Allergies Allergy/AdvReac Type Severity Reaction Status Date / Time No Known Allergies Allergy Verified 04/04/21 23:46 Home Medications: Home Meds Folic Acid 1 mg PO DAILY 11/17/20 [History] Furosemide [Lasix] 60 mg PO DAILY 11/17/20 [History] Levothyroxine 150 mcg PO ACBREAKFAST 11/17/20 [History] Potassium Chloride [Klor-Con M20] 20 meq PO DAILY 11/17/20 [History] atorvaSTATin [Lipitor] 40 mg PO BEDTIME 01/28/21 [History] predniSONE [Prednisone] 20 mg PO DAILY 01/28/21 [History] Cyanocobalamin (Vitamin B12) [Vitamin B12] 500 mcg PO DAILY #14 tablet 02/10/21 [Rx] Acetaminophen 650 mg PO Q4H PRN 04/04/21 [History] Ascorbic Acid 500 mg PO DAILY 04/04/21 [History] Aspirin 81 mg PO DAILY 04/04/21 [History] Budesonide [Pulmicort] 1 ampule INH TID 04/04/21 [History] Cholecalciferol (Vitamin D3) [Vitamin D3] 2,000 unit PO DAILY 04/04/21 [History] Docusate Sodium 100 mg PO DAILY 04/04/21 [History] Doxycycline [Doxycycline Hyclate] 100 mg PO BID 04/04/21 [History] Ipratropium/Albuterol Sulfate [Iprat-Albut 0.5-3(2.5) MG/3 ML] 3 ml IH QID PRN 04/04/21 [History] Vitamin E 400 unit PO DAILY 04/04/21 [History] predniSONE [Prednisone] 10 mg PO BEDTIME 04/04/21 [History] Warfarin Sodium 3 mg PO ASDIRECTED 04/05/21 [History] Warfarin Sodium 4 mg PO ASDIRECTED 04/05/21 [History] Warfarin Sodium [Jantoven] 2 mg PO ASDIRECTED 04/05/21 [History] Past Medical History - Past Health History Medical/Surgical History: Denies Medical/Surgical History HEENT History: Reports: Cataract, Hard of Hearing, Macular Degeneration Cardiovascular History: Reports: Blood Clots/VTE/DVT, High Cholesterol Respiratory History: Reports: Pneumonia, Recurrent, Pulmonary Fibrosis Gastrointestinal History: Reports: None Genitourinary History: Reports: None Musculoskeletal History: Reports: Arthritis, Fracture, Osteoarthritis, Other (See Below) Other Musculoskeletal History: fx right knee fx left lower leg, fx left wrist Neurological History: Reports: None Psychiatric History: Reports: None Endocrine/Metabolic History: Reports: None, Obesity/BMI 30+ Hematologic History: Reports: Other (See Below) Other Hematologic History: Blood clots? Immunologic History: Reports: None Oncologic (Cancer) History: Reports: None Dermatologic History: Reports: Cellulitis - Infectious Disease History Infectious Disease History: Reports: Chicken Pox, Measles, Mumps - Past Surgical History Head Surgeries/Procedures: Reports: None HEENT Surgical History: Reports: Cataract Surgery Other HEENT Surgeries/Procedures: Wears reading glasses GI Surgical History: Reports: Cholecystectomy, Colonoscopy Musculoskeletal Surgical History: Reports: Other (See Below) Social & Family History - Family History Family Medical History: No Pertinent Family History - Tobacco Use Tobacco Use Status *Q: Never Tobacco User - Caffeine Use Caffeine Use: Reports: Coffee, Soda - Recreational Drug Use Recreational Drug Use: No - Living Situation & Occupation Living situation: Reports: with Family (Lives with daughter, recently started living with her due to significant lung disease this winter.) Occupation: Retired H&P Review of Systems - Review of Systems: Review Of Systems: See Below General: Denies: Fever, Chills, Malaise Pulmonary: Reports: Shortness of Breath, Wheezing, Cough Cardiovascular: Denies: Chest Pain, Palpitations Gastrointestinal: Denies: Abdominal Pain, Anorexia Genitourinary: Denies: Dysuria, Frequency, Burning Musculoskeletal: Reports: Arm Pain. Denies: Neck Pain, Shoulder Pain, Joint Pain Skin: Reports: Rash, Erythema. Denies: Cyanosis, Jaundice, Mottled Psychiatric: Denies: Confusion, Depression Neurological: Denies: Dizziness, Headache, Numbness Exam - Exam Exam: See Below - Vital Signs Vital Signs: Last Vital Signs Temp 35.9 C L 04/04/21 22:37 Pulse 73 04/04/21 22:37 Resp 20 04/04/21 22:37 BP 155/82 H 04/04/21 22:37 Pulse Ox 90 L 04/04/21 22:37 Weight: 127.641 kg - Exam Quality Assessment: Supplemental Oxygen General: Alert, Oriented, Cooperative Neck: Supple Lungs: Clear to Auscultation, Normal Respiratory Effort Cardiovascular: Regular Rate, Regular Rhythm GI/Abdominal Exam: Normal Bowel Sounds, Soft, Non-Tender Extremities: Pedal Edema, Arm Pain, Increased Warmth, Redness Skin: Warm, Intact, Other (erythema and swelling in from left anticubital fossa to hand) - Patient Data Lab Results Last 24 hrs: Laboratory Results - last 24 hr 04/04/21 04/04/21 04/04/21 Range/Units 16:32 16:32 16:32 WBC 12.42 H (4.0-11.0) K/uL RBC 4.32 L (4.50-5.90) M/uL Hgb 14.3 (13.0-17.0) g/dL Hct 44.5 (38.0-50.0) % MCV 103.0 H (80.0-98.0) fL MCH 33.1 H (27.0-32.0) pg MCHC 32.1 (31.0-37.0) g/dL RDW Std Deviation 55.0 (28.0-62.0) fl RDW Coeff of Sunny 15 (11.0-15.0) % Plt Count 154 (150-400) K/uL MPV 11.70 (7.40-12.00) fL Add Manual Diff YES Neutrophils % (Manual) 86 H (48.0-80.0) % Band Neutrophils % 2 % Lymphocytes % (Manual) 4 L (16.0-40.0) % Monocytes % (Manual) 5 (0.0-15.0) % Eosinophils % (Manual) 1 (0.0-7.0) % Metamyelocytes % 2 % Nucleated RBC % 0.0 /100WBC Absolute Seg Neuts 10.7 H (1.4-5.7) Band Neutrophils # 0.2 Lymphocytes # (Manual) 0.5 L (0.6-2.4) Monocytes # (Manual) 0.6 (0.0-0.8) Eosinophils # (Manual) 0.1 (0.0-0.7) Absolute Metamyelocyte 0.2 Nucleated RBCs # 0 K/uL INR Lactate (0.20-2.00) mmol/L Sodium 139 (136-148) mmol/L Potassium 4.2 (3.5-5.1) mmol/L Chloride 101 (98-107) mmol/L Carbon Dioxide 32.4 H (21.0-32.0) mmol/L BUN 18 (7.0-18.0) mg/dL Creatinine 1.3 (0.8-1.3) mg/dL Est Cr Clr Drug Dosing 55.64 mL/min Estimated GFR (MDRD) 53.1 ml/min Glucose 380 H (74-106) mg/dL Calcium 7.9 L (8.5-10.1) mg/dL Magnesium 2.0 (1.8-2.4) mg/dL Total Bilirubin 0.6 (0.2-1.0) mg/dL AST 33 (15-37) IU/L ALT 81 H (14-63) IU/L Alkaline Phosphatase 77 (46-116) U/L Troponin I < 0.050 (0.000-0.056) ng/mL B-Natriuretic Peptide 168 H (<100) PG/ML Total Protein 5.7 L (6.4-8.2) g/dL Albumin 2.4 L (3.4-5.0) g/dL Globulin 3.3 (2.6-4.0) g/dL Albumin/Globulin Ratio 0.7 L (0.9-1.6) Free T4 1.43 (0.76-1.46) ng/dL TSH 3rd Generation 0.22 L (0.36-3.74) uIU/mL SARS-CoV-2 RNA (MELIDA) (NEGATIVE) 04/04/21 04/04/21 04/04/21 Range/Units 16:32 16:36 19:52 WBC (4.0-11.0) K/uL RBC (4.50-5.90) M/uL Hgb (13.0-17.0) g/dL Hct (38.0-50.0) % MCV (80.0-98.0) fL MCH (27.0-32.0) pg MCHC (31.0-37.0) g/dL RDW Std Deviation (28.0-62.0) fl RDW Coeff of Sunny (11.0-15.0) % Plt Count (150-400) K/uL MPV (7.40-12.00) fL Add Manual Diff Neutrophils % (Manual) (48.0-80.0) % Band Neutrophils % % Lymphocytes % (Manual) (16.0-40.0) % Monocytes % (Manual) (0.0-15.0) % Eosinophils % (Manual) (0.0-7.0) % Metamyelocytes % % Nucleated RBC % /100WBC Absolute Seg Neuts (1.4-5.7) Band Neutrophils # Lymphocytes # (Manual) (0.6-2.4) Monocytes # (Manual) (0.0-0.8) Eosinophils # (Manual) (0.0-0.7) Absolute Metamyelocyte Nucleated RBCs # K/uL INR 1.73 Lactate 1.4 (0.20-2.00) mmol/L Sodium (136-148) mmol/L Potassium (3.5-5.1) mmol/L Chloride (98-107) mmol/L Carbon Dioxide (21.0-32.0) mmol/L BUN (7.0-18.0) mg/dL Creatinine (0.8-1.3) mg/dL Est Cr Clr Drug Dosing mL/min Estimated GFR (MDRD) ml/min Glucose (74-106) mg/dL Calcium (8.5-10.1) mg/dL Magnesium (1.8-2.4) mg/dL Total Bilirubin (0.2-1.0) mg/dL AST (15-37) IU/L ALT (14-63) IU/L Alkaline Phosphatase (46-116) U/L Troponin I (0.000-0.056) ng/mL B-Natriuretic Peptide (<100) PG/ML Total Protein (6.4-8.2) g/dL Albumin (3.4-5.0) g/dL Globulin (2.6-4.0) g/dL Albumin/Globulin Ratio (0.9-1.6) Free T4 (0.76-1.46) ng/dL TSH 3rd Generation (0.36-3.74) uIU/mL SARS-CoV-2 RNA (MELIDA) NEGATIVE (NEGATIVE) Result Diagrams: 04/05/21 08:10 04/05/21 08:10 Sepsis Event Note - Evaluation Sepsis Screening Result: No Definite Risk - Focused Exam Vital Signs: Vital Signs Temp Pulse Resp BP Pulse Ox 04/04/21 22:37 35.9 C L 73 20 155/82 H 90 L 04/04/21 22:08 75 16 151/80 H 95 04/04/21 21:08 68 16 152/71 H 98 04/04/21 20:08 74 16 143/77 H 94 L 04/04/21 19:38 76 18 161/85 H 97 04/04/21 18:38 80 16 142/86 H 96 04/04/21 16:30 95 18 151/90 H 95 04/04/21 16:04 37.1 C 93 18 172/98 H 96 - Problem List (1) Anasarca SNOMED Code(s): 854784405, 714035804 ICD Code: R60.1 - GENERALIZED EDEMA Status: Acute Current Visit: Yes (2) Cellulitis SNOMED Code(s): 734540374 ICD Code: L03.90 - CELLULITIS, UNSPECIFIED Status: Acute Current Visit: Yes Qualifiers: Site of cellulitis: extremity Site of cellulitis of extremity: upper extremity Laterality: left Qualified Code(s): L03.114 - Cellulitis of left upper limb (3) Hypoalbuminemia SNOMED Code(s): 998951460 ICD Code: E88.09 - OTH DISORDERS OF PLASMA-PROTEIN METABOLISM, NEC Status: Acute Current Visit: Yes (4) Emphysema of lung SNOMED Code(s): 32553518 ICD Code: J43.9 - EMPHYSEMA, UNSPECIFIED Status: Acute Current Visit: No (5) Ambulatory dysfunction SNOMED Code(s): 149704784 ICD Code: R26.2 - DIFFICULTY IN WALKING, NOT ELSEWHERE CLASSIFIED Status: Chronic Current Visit: No (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) SNOMED Code(s): 980180282 ICD Code: J84.89 - OTHER SPECIFIED INTERSTITIAL PULMONARY DISEASES Status: Chronic Current Visit: No (7) Chronic respiratory failure with hypoxia SNOMED Code(s): 368573946 ICD Code: J96.11 - CHRONIC RESPIRATORY FAILURE WITH HYPOXIA Status: Chronic Current Visit: No (8) History of DVT (deep vein thrombosis) SNOMED Code(s): 297797916 ICD Code: Z86.718 - PERSONAL HISTORY OF OTHER VENOUS THROMBOSIS AND EMBOLISM Status: Chronic Current Visit: No (9) Hypothyroidism SNOMED Code(s): 92654767 ICD Code: E03.9 - HYPOTHYROIDISM, UNSPECIFIED Status: Chronic Current Visit: No (10) Pulmonary fibrosis SNOMED Code(s): 54031953 ICD Code: J84.10 - PULMONARY FIBROSIS, UNSPECIFIED Status: Chronic Current Visit: No (11) CVA (cerebral vascular accident) SNOMED Code(s): 481720667 ICD Code: I63.9 - CEREBRAL INFARCTION, UNSPECIFIED Status: Ruled-out Current Visit: No Problem List Initiated/Reviewed/Updated: Yes Orders Last 24hrs: Active Orders 24 hr Category Date Time Status Patient Status [ADT] Routine ADT 04/04/21 21:04 Active Ambulate [RC] PER UNIT ROUTINE Care 04/04/21 22:31 Active Antiembolic Devices [RC] PER UNIT ROUTINE Care 04/04/21 22:30 Active Cardiac Monitoring [RC] Q8H Care 04/04/21 16:12 Active Oxygen Therapy [RC] ASDIRECTED Care 04/04/21 22:31 Active Pulse Oximetry [RC] ASDIRECTED Care 04/04/21 16:12 Active RT Aerosol Therapy [RC] ASDIRECTED Care 04/04/21 22:26 Active Telemetry Monitoring [Cardiac Monitoring] [RC] . Care 04/04/21 21:50 Active DIRECTED Vital Signs [RC] Q4H Care 04/04/21 22:30 Active Cardiac [Heart Healthy Diet] [DIET] Diet 04/04/21 Dinner Active CULTURE BLOOD [BC] Stat Lab 04/04/21 19:46 Received CULTURE BLOOD [BC] Stat Lab 04/04/21 19:46 Received Albuterol/Ipratropium [DuoNeb 3.0-0.5 MG/3 ML] Med 04/04/21 22:25 Active 3 ml NEB Q4HRRT PRN Piperacillin/Tazobactam [Piperacil-Tazobact] 3.375 gm Med 04/05/21 06:00 Active Sodium Chloride 0.9% [Normal Saline] 50 ml IV Q8H Blood Culture x2 Reflex Set [OM.PC] Stat Oth 04/04/21 19:30 Ordered SCD [Sequential Compression Device] [OM.PC] Routine Oth 04/04/21 22:30 Ordered Medication Orders Albuterol/Ipratropium (Albuterol/Ipratropium 3.0-0.5 Mg/3 Ml Neb Soln) 3 ml NEB Q4HRRT PRN PRN Reason: Shortness of Breath Piperacillin Sod/Tazobactam (Sod 3.375 gm/ Sodium Chloride) 50 mls @ 100 mls/hr IV Q8H [facility] Assessment/Plan Comment:: 80 y/o M admitted for left arm cellultiits Leucocytosis noted Will start IV Zosyn, if infection worsens will add vancomycin start IV lasix for now, not in cute CHF but has anasarca cont po steroids cont oxygen as needed cont home meds as appropriate DuoNebs as needed Has been retaining urine, check UA, if continues to retain inset Adams cath Monitor and replete electrolytes daily
[2021-04-05] MEDS: Piperacillin/Tazobactam 3.375 GM in Sodium Chloride 0.9% 50 ML IV SCH ×3 (05:54→22:17)
[2021-04-05 08:44] LABS: BLOOD UREA NITROGEN,BUN 19 mg/dL (7.0-18.0); CHLORIDE,CL 102 mmol/L (98-107); GLUCOSE RANDOM 138 mg/dL (74-106); POTASSIUM,K 3.7 mmol/L (3.5-5.1); SODIUM,NA 143 mmol/L (136-148)
[2021-04-05] MEDS ORDERED: Furosemide 40 MG/4 ML VIAL IVPUSH ONE ×3 (09:06→21:59)
[2021-04-05] MEDS ORDERED: Albuterol/Ipratropium 3.0-0.5 MG/3 ML Neb Soln INH PRN (10:39)
[2021-04-05] MEDS ORDERED: VANCOmycin 1.75 GM/350 ML 350 ML IV SCH (10:45)
[2021-04-05] MEDS: VANCOmycin 1.5 GM/300 ML 1.5 GM in Premix Bag 1 BAG IV SCH ×2 (11:24→22:47)
[2021-04-05] MEDS: Budesonide 0.5 MG/2 ML Neb Susp INH SCH ×2 (13:32→22:16)
[2021-04-05] MEDS ORDERED: Warfarin 2 MG Tab PO ONE (14:00)
[2021-04-05] MEDS ORDERED: Tamsulosin 0.4 MG Cap.ER PO ONE (19:15)
--- NOTE | 2021-04-05 20:38 | PCM.PN ---
- General Info Date of Service: 04/05/21 Admission Dx/Problem (Free Text): Admission Diagnosis/Problem Admission Diagnosis/Problem Cellulitis Subjective Update: seen at bedside, no distress, Functional Status: Reports: Tolerating Diet, Ambulating, Urinating - Review of Systems General: Denies: Fever, Weakness, Fatigue Pulmonary: Reports: Shortness of Breath. Denies: Pleuritic Chest Pain, Cough, Sputum Cardiovascular: Reports: Dyspnea on Exertion. Denies: Chest Pain, Palpitations, Orthopnea Gastrointestinal: Denies: Abdominal Pain, Constipation, Decreased Appetite Genitourinary: Denies: Dysuria, Frequency, Burning Musculoskeletal: Denies: Neck Pain, Shoulder Pain, Arm Pain Skin: Denies: Cyanosis, Jaundice, Mottled, Pallor - Patient Data Vitals - Most Recent: Last Vital Signs Temp 37.0 C 04/05/21 19:56 Pulse 88 04/05/21 19:56 Resp 20 04/05/21 19:56 BP 120/73 04/05/21 19:56 Pulse Ox 86 L 04/05/21 19:56 Weight - Most Recent: 126.779 kg I&O - Last 24 Hours: Intake & Output 04/05/21 04/05/21 04/05/21 06:59 14:59 22:59 Intake Total 730 1500 Output Total 400 675 125 Balance 330 -675 1375 Lab Results Last 24 Hours: Laboratory Results - last 24 hr 04/05/21 04/05/21 04/05/21 Range/Units 08:10 08:10 08:10 WBC 16.01 H (4.0-11.0) K/uL RBC 4.63 (4.50-5.90) M/uL Hgb 15.3 (13.0-17.0) g/dL Hct 47.6 (38.0-50.0) % MCV 102.8 H (80.0-98.0) fL MCH 33.0 H (27.0-32.0) pg MCHC 32.1 (31.0-37.0) g/dL RDW Std Deviation 55.7 (28.0-62.0) fl RDW Coeff of Sunny 15 (11.0-15.0) % Plt Count 168 (150-400) K/uL MPV 11.80 (7.40-12.00) fL Add Manual Diff YES Neutrophils % (Manual) 76 (48.0-80.0) % Band Neutrophils % 10 % Lymphocytes % (Manual) 9 L (16.0-40.0) % Monocytes % (Manual) 2 (0.0-15.0) % Eosinophils % (Manual) 2 (0.0-7.0) % Metamyelocytes % 1 % Nucleated RBC % 0.0 /100WBC Absolute Seg Neuts 12.2 H (1.4-5.7) Band Neutrophils # 1.6 Lymphocytes # (Manual) 1.4 (0.6-2.4) Monocytes # (Manual) 0.3 (0.0-0.8) Eosinophils # (Manual) 0.3 (0.0-0.7) Absolute Metamyelocyte 0.2 Nucleated RBCs # 0 K/uL INR Sodium 143 (136-148) mmol/L Potassium 3.7 (3.5-5.1) mmol/L Chloride 102 (98-107) mmol/L Carbon Dioxide 32.0 (21.0-32.0) mmol/L BUN 19 H (7.0-18.0) mg/dL Creatinine 1.0 (0.8-1.3) mg/dL Est Cr Clr Drug Dosing 72.33 mL/min Estimated GFR (MDRD) > 60.0 ml/min Glucose 138 H (74-106) mg/dL Calcium 8.1 L (8.5-10.1) mg/dL Total Bilirubin 1.0 (0.2-1.0) mg/dL AST 30 (15-37) IU/L ALT 73 H (14-63) IU/L Alkaline Phosphatase 74 (46-116) U/L Troponin I < 0.050 (0.000-0.056) ng/mL Total Protein 5.9 L (6.4-8.2) g/dL Albumin 2.5 L (3.4-5.0) g/dL Globulin 3.4 (2.6-4.0) g/dL Albumin/Globulin Ratio 0.7 L (0.9-1.6) 04/05/21 Range/Units 14:01 WBC (4.0-11.0) K/uL RBC (4.50-5.90) M/uL Hgb (13.0-17.0) g/dL Hct (38.0-50.0) % MCV (80.0-98.0) fL MCH (27.0-32.0) pg MCHC (31.0-37.0) g/dL RDW Std Deviation (28.0-62.0) fl RDW Coeff of Sunny (11.0-15.0) % Plt Count (150-400) K/uL MPV (7.40-12.00) fL Add Manual Diff Neutrophils % (Manual) (48.0-80.0) % Band Neutrophils % % Lymphocytes % (Manual) (16.0-40.0) % Monocytes % (Manual) (0.0-15.0) % Eosinophils % (Manual) (0.0-7.0) % Metamyelocytes % % Nucleated RBC % /100WBC Absolute Seg Neuts (1.4-5.7) Band Neutrophils # Lymphocytes # (Manual) (0.6-2.4) Monocytes # (Manual) (0.0-0.8) Eosinophils # (Manual) (0.0-0.7) Absolute Metamyelocyte Nucleated RBCs # K/uL INR 1.80 Sodium (136-148) mmol/L Potassium (3.5-5.1) mmol/L Chloride (98-107) mmol/L Carbon Dioxide (21.0-32.0) mmol/L BUN (7.0-18.0) mg/dL Creatinine (0.8-1.3) mg/dL Est Cr Clr Drug Dosing mL/min Estimated GFR (MDRD) ml/min Glucose (74-106) mg/dL Calcium (8.5-10.1) mg/dL Total Bilirubin (0.2-1.0) mg/dL AST (15-37) IU/L ALT (14-63) IU/L Alkaline Phosphatase (46-116) U/L Troponin I (0.000-0.056) ng/mL Total Protein (6.4-8.2) g/dL Albumin (3.4-5.0) g/dL Globulin (2.6-4.0) g/dL Albumin/Globulin Ratio (0.9-1.6) Tom Results Last 24 Hours: Microbiology 04/04/21 19:46 Aerobic Blood Culture - Preliminary Blood - Venous - Lab Draw NO GROWTH AFTER 1 DAY Anaerobic Blood Culture - Preliminary NO GROWTH AFTER 1 DAY 04/04/21 19:46 Aerobic Blood Culture - Preliminary Blood - Venous NO GROWTH AFTER 1 DAY Anaerobic Blood Culture - Preliminary NO GROWTH AFTER 1 DAY Med Orders - Current: Current Medications Albuterol/Ipratropium (Albuterol/Ipratropium 3.0-0.5 Mg/3 Ml Neb Soln) 3 ml NEB Q4HRRT PRN PRN Reason: Shortness of Breath Last Admin: 04/05/21 12:07 Dose: 3 ml Documented by: Aspirin (Aspirin 81 Mg Tab.Chew) 81 mg PO DAILY [facility] Atorvastatin Calcium (Atorvastatin 40 Mg Tab) 40 mg PO BEDTIME [facility] Budesonide (Budesonide 0.5 Mg/2 Ml Neb Susp) 1 mg INH TID [facility] Last Admin: 04/05/21 13:32 Dose: 0.5 mg Documented by: Docusate Sodium (Docusate Sodium 100 Mg Cap) 100 mg PO DAILY [facility] Enoxaparin Sodium (Enoxaparin 40 Mg/0.4 Ml Syringe) 40 mg SUBCUT Q12HR [facility] Furosemide (Furosemide 40 Mg/4 Ml Vial) 40 mg IVPUSH DAILY [facility] Piperacillin Sod/Tazobactam (Sod 3.375 gm/ Sodium Chloride) 50 mls @ 100 mls/hr IV Q8H [facility] Last Admin: 04/05/21 14:05 Dose: 100 mls/hr Documented by: Vancomycin HCl 1.5 gm/ Premix 300 mls @ 200 mls/hr IV Q12H [facility] Last Admin: 04/05/21 11:24 Dose: 200 mls/hr Documented by: Levothyroxine Sodium (Levothyroxine 150 Mcg Tab) 150 mcg PO ACBREAKFAST [facility] Prednisone (Prednisone 10 Mg Tab) 10 mg PO BEDTIME [facility] Prednisone (Prednisone 20 Mg Tab) 20 mg PO DAILY [facility] Vancomycin HCl (Pharmacy To Dose - Vancomycin) 1 dose .XX ASDIRECTED [facility] Warfarin Sodium (Warfarin Ask Dosing) 1 each PO Q24H [facility] Discontinued Medications Albuterol/Ipratropium (Albuterol/Ipratropium 3.0-0.5 Mg/3 Ml Neb Soln) 3 ml INH TID PRN PRN Reason: Shortness of Breath Aspirin (Aspirin 81 Mg Tab.Chew) 324 mg PO ONETIME ONE Stop: 04/04/21 16:13 Last Admin: 04/04/21 16:26 Dose: 324 mg Documented by: Furosemide (Furosemide 20 Mg/2 Ml Vial) 20 mg IVPUSH ONETIME ONE Stop: 04/04/21 22:18 Last Admin: 04/04/21 23:02 Dose: 20 mg Documented by: Furosemide (Furosemide 40 Mg/4 Ml Vial) 20 mg IVPUSH NOW ONE Stop: 04/05/21 09:07 Last Admin: 04/05/21 09:39 Dose: 20 mg Documented by: Furosemide (Furosemide 40 Mg/4 Ml Vial) 20 mg IVPUSH ONETIME ONE Stop: 04/05/21 17:01 Last Admin: 04/05/21 16:48 Dose: Not Given Documented by: Ceftriaxone Sodium/Dextrose 2 (gm/ Premix) 50 mls @ 100 mls/hr IV ONETIME ONE Stop: 04/04/21 17:58 Last Admin: 04/04/21 17:45 Dose: 100 mls/hr Documented by: Piperacillin Sod/Tazobactam (Sod 3.375 gm/ Sodium Chloride) 50 mls @ 100 mls/hr IV ONETIME ONE Stop: 04/04/21 21:32 Last Admin: 04/04/21 21:49 Dose: 100 mls/hr Documented by: Iopamidol (Iopamidol 755 Mg/Ml 500 Ml Multipack Bottle) 100 ml IVPUSH ONETIME ONE Stop: 04/04/21 18:43 Last Admin: 04/04/21 18:44 Dose: 100 ml Documented by: Tamsulosin HCl (Tamsulosin 0.4 Mg Cap.Er) 0.4 mg PO ONETIME ONE Stop: 04/05/21 19:16 Last Admin: 04/05/21 19:53 Dose: 0.4 mg Documented by: Warfarin Sodium (Warfarin 2 Mg Tab) 4 mg PO ONETIME ONE Stop: 04/05/21 14:01 Last Admin: 04/05/21 14:05 Dose: 4 mg Documented by: - Exam Quality Assessment: Supplemental Oxygen General: Alert, Oriented, Cooperative Lungs: Normal Respiratory Effort, Decreased Breath Sounds, Crackles Cardiovascular: Regular Rate, Regular Rhythm GI/Abdominal Exam: Normal Bowel Sounds, Soft, Non-Tender Extremities: Increased Warmth, Redness (improved) - Patient Data Lab Results Last 24 hrs: Laboratory Results - last 24 hr 04/05/21 04/05/21 04/05/21 Range/Units 08:10 08:10 08:10 WBC 16.01 H (4.0-11.0) K/uL RBC 4.63 (4.50-5.90) M/uL Hgb 15.3 (13.0-17.0) g/dL Hct 47.6 (38.0-50.0) % MCV 102.8 H (80.0-98.0) fL MCH 33.0 H (27.0-32.0) pg MCHC 32.1 (31.0-37.0) g/dL RDW Std Deviation 55.7 (28.0-62.0) fl RDW Coeff of Sunny 15 (11.0-15.0) % Plt Count 168 (150-400) K/uL MPV 11.80 (7.40-12.00) fL Add Manual Diff YES Neutrophils % (Manual) 76 (48.0-80.0) % Band Neutrophils % 10 % Lymphocytes % (Manual) 9 L (16.0-40.0) % Monocytes % (Manual) 2 (0.0-15.0) % Eosinophils % (Manual) 2 (0.0-7.0) % Metamyelocytes % 1 % Nucleated RBC % 0.0 /100WBC Absolute Seg Neuts 12.2 H (1.4-5.7) Band Neutrophils # 1.6 Lymphocytes # (Manual) 1.4 (0.6-2.4) Monocytes # (Manual) 0.3 (0.0-0.8) Eosinophils # (Manual) 0.3 (0.0-0.7) Absolute Metamyelocyte 0.2 Nucleated RBCs # 0 K/uL INR Sodium 143 (136-148) mmol/L Potassium 3.7 (3.5-5.1) mmol/L Chloride 102 (98-107) mmol/L Carbon Dioxide 32.0 (21.0-32.0) mmol/L BUN 19 H (7.0-18.0) mg/dL Creatinine 1.0 (0.8-1.3) mg/dL Est Cr Clr Drug Dosing 72.33 mL/min Estimated GFR (MDRD) > 60.0 ml/min Glucose 138 H (74-106) mg/dL Calcium 8.1 L (8.5-10.1) mg/dL Total Bilirubin 1.0 (0.2-1.0) mg/dL AST 30 (15-37) IU/L ALT 73 H (14-63) IU/L Alkaline Phosphatase 74 (46-116) U/L Troponin I < 0.050 (0.000-0.056) ng/mL Total Protein 5.9 L (6.4-8.2) g/dL Albumin 2.5 L (3.4-5.0) g/dL Globulin 3.4 (2.6-4.0) g/dL Albumin/Globulin Ratio 0.7 L (0.9-1.6) 04/05/21 Range/Units 14:01 WBC (4.0-11.0) K/uL RBC (4.50-5.90) M/uL Hgb (13.0-17.0) g/dL Hct (38.0-50.0) % MCV (80.0-98.0) fL MCH (27.0-32.0) pg MCHC (31.0-37.0) g/dL RDW Std Deviation (28.0-62.0) fl RDW Coeff of Sunny (11.0-15.0) % Plt Count (150-400) K/uL MPV (7.40-12.00) fL Add Manual Diff Neutrophils % (Manual) (48.0-80.0) % Band Neutrophils % % Lymphocytes % (Manual) (16.0-40.0) % Monocytes % (Manual) (0.0-15.0) % Eosinophils % (Manual) (0.0-7.0) % Metamyelocytes % % Nucleated RBC % /100WBC Absolute Seg Neuts (1.4-5.7) Band Neutrophils # Lymphocytes # (Manual) (0.6-2.4) Monocytes # (Manual) (0.0-0.8) Eosinophils # (Manual) (0.0-0.7) Absolute Metamyelocyte Nucleated RBCs # K/uL INR 1.80 Sodium (136-148) mmol/L Potassium (3.5-5.1) mmol/L Chloride (98-107) mmol/L Carbon Dioxide (21.0-32.0) mmol/L BUN (7.0-18.0) mg/dL Creatinine (0.8-1.3) mg/dL Est Cr Clr Drug Dosing mL/min Estimated GFR (MDRD) ml/min Glucose (74-106) mg/dL Calcium (8.5-10.1) mg/dL Total Bilirubin (0.2-1.0) mg/dL AST (15-37) IU/L ALT (14-63) IU/L Alkaline Phosphatase (46-116) U/L Troponin I (0.000-0.056) ng/mL Total Protein (6.4-8.2) g/dL Albumin (3.4-5.0) g/dL Globulin (2.6-4.0) g/dL Albumin/Globulin Ratio (0.9-1.6) Result Diagrams: 04/05/21 08:10 04/05/21 08:10 Tom Results Last 24 hrs: Microbiology 04/04/21 19:46 Aerobic Blood Culture - Preliminary Blood - Venous - Lab Draw NO GROWTH AFTER 1 DAY Anaerobic Blood Culture - Preliminary NO GROWTH AFTER 1 DAY 04/04/21 19:46 Aerobic Blood Culture - Preliminary Blood - Venous NO GROWTH AFTER 1 DAY Anaerobic Blood Culture - Preliminary NO GROWTH AFTER 1 DAY Sepsis Event Note - Evaluation Sepsis Screening Result: No Definite Risk - Focused Exam Vital Signs: Vital Signs Temp Pulse Resp BP Pulse Ox 04/05/21 19:56 37.0 C 88 20 120/73 86 L 04/05/21 16:00 37.5 C 99 24 H 116/69 89 L 04/05/21 11:36 37.3 C 114 H 20 105/59 L 88 L - Problem List & Annotations (1) Anasarca SNOMED Code(s): 422192752, 466142261 Code(s): R60.1 - GENERALIZED EDEMA Status: Acute Current Visit: Yes (2) Cellulitis SNOMED Code(s): 979369219 Code(s): L03.90 - CELLULITIS, UNSPECIFIED Status: Acute Current Visit: Yes Qualifiers: Site of cellulitis: extremity Site of cellulitis of extremity: upper extremity Laterality: left Qualified Code(s): L03.114 - Cellulitis of left upper limb (3) Hypoalbuminemia SNOMED Code(s): 457320122 Code(s): E88.09 - OTH DISORDERS OF PLASMA-PROTEIN METABOLISM, NEC Status: Acute Current Visit: Yes (4) Emphysema of lung SNOMED Code(s): 07737841 Code(s): J43.9 - EMPHYSEMA, UNSPECIFIED Status: Acute Current Visit: No (5) Ambulatory dysfunction SNOMED Code(s): 843839023 Code(s): R26.2 - DIFFICULTY IN WALKING, NOT ELSEWHERE CLASSIFIED Status: Chronic Current Visit: No (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) SNOMED Code(s): 294409755 Code(s): J84.89 - OTHER SPECIFIED INTERSTITIAL PULMONARY DISEASES Status: Chronic Current Visit: No (7) Chronic respiratory failure with hypoxia SNOMED Code(s): 088289778 Code(s): J96.11 - CHRONIC RESPIRATORY FAILURE WITH HYPOXIA Status: Chronic Current Visit: No (8) History of DVT (deep vein thrombosis) SNOMED Code(s): 905358251 Code(s): Z86.718 - PERSONAL HISTORY OF OTHER VENOUS THROMBOSIS AND EMBOLISM Status: Chronic Current Visit: No (9) Hypothyroidism SNOMED Code(s): 97121856 Code(s): E03.9 - HYPOTHYROIDISM, UNSPECIFIED Status: Chronic Current Visit: No (10) Pulmonary fibrosis SNOMED Code(s): 61047209 Code(s): J84.10 - PULMONARY FIBROSIS, UNSPECIFIED Status: Chronic Current Visit: No (11) CVA (cerebral vascular accident) SNOMED Code(s): 199790443 Code(s): I63.9 - CEREBRAL INFARCTION, UNSPECIFIED Status: Ruled-out Current Visit: No - Problem List Review Problem List Initiated/Reviewed/Updated: Yes - My Orders Last 24 Hours: My Active Orders 04/04/21 21:50 Telemetry Monitoring [Cardiac Monitoring] [RC] . DIRECTED 04/04/21 22:25 Albuterol/Ipratropium [DuoNeb 3.0-0.5 MG/3 ML] 3 ml NEB Q4HRRT PRN 04/04/21 22:30 Antiembolic Devices [RC] PER UNIT ROUTINE Vital Signs [RC] Q4H SCD [Sequential Compression Device] [OM.PC] Routine 04/04/21 22:31 Ambulate [RC] PER UNIT ROUTINE Oxygen Therapy [RC] ASDIRECTED 04/05/21 06:00 Piperacillin/Tazobactam [Piperacil-Tazobact] 3.375 gm Sodium Chloride 0.9% [Normal Saline] 50 ml IV Q8H 04/05/21 12:07 Resuscitation Status Routine 04/05/21 20:17 UA W/TOM RFLX IF INDICATED [URIN] Routine 04/06/21 05:11 MAGNESIUM [CHEM] AM PHOSPHORUS [CHEM] AM - Plan Plan:: 80 y/o M admitted for left arm cellultiits Leucocytosis noted cont IV Zosyn, add vancomycin start IV lasix for now, not in cute CHF but has anasarca cont po steroids cont oxygen as needed cont home meds as appropriate DuoNebs as needed Has been retaining urine, check UA, if continues to retain inset Adams cath Monitor and replete electrolytes daily
[2021-04-05] MEDS: Furosemide 20 MG/2 ML VIAL ONE ×2 (22:03→22:10)
[2021-04-05] MEDS: atorvaSTATin 40 MG Tab PO SCH (22:11)
[2021-04-05] MEDS: predniSONE 10 MG Tab PO SCH (22:11)
[2021-04-05] MEDS: Enoxaparin 40 MG/0.4 ML Syringe SUBCUT SCH (22:11)
[2021-04-06] MEDS: Piperacillin/Tazobactam 3.375 GM in Sodium Chloride 0.9% 50 ML IV SCH ×3 (05:40→22:13)
[2021-04-06] MEDS: Budesonide 0.5 MG/2 ML Neb Susp INH SCH ×3 (05:54→21:15)
[2021-04-06 06:19] LABS: BLOOD UREA NITROGEN,BUN 25 mg/dL (7.0-18.0); CARBON DIOXIDE,CO2 31.7 mmol/L (21.0-32.0); CHLORIDE,CL 97 mmol/L (98-107); GLUCOSE RANDOM 173 mg/dL (74-106); POTASSIUM,K 3.4 mmol/L (3.5-5.1); SODIUM,NA 136 mmol/L (136-148)
[2021-04-06] MEDS: Aspirin 81 MG Tab.Chew PO SCH (08:40)
[2021-04-06] MEDS: Docusate Sodium 100 MG Cap PO SCH (08:40)
[2021-04-06] MEDS: Furosemide 40 MG/4 ML VIAL IVPUSH SCH (08:40)
[2021-04-06] MEDS: Enoxaparin 40 MG/0.4 ML Syringe SUBCUT SCH ×2 (08:40→20:52)
[2021-04-06] MEDS: predniSONE 20 MG Tab PO SCH (08:40)
[2021-04-06] MEDS: Levothyroxine 150 MCG Tab PO SCH (08:40)
[2021-04-06] MEDS: VANCOmycin 1.5 GM/300 ML 1.5 GM in Premix Bag 1 BAG IV SCH ×2 (11:11→23:14)
[2021-04-06] MEDS ORDERED: Potassium Chloride 20 MEQ Tab.ER PO ONE (12:30)
--- NOTE | 2021-04-06 12:39 | PCM.PN ---
- General Info Date of Service: 04/06/21 - Review of Systems Systems Review Comment:: redness of left arm has improved, swelling has improved, no fevers, no pain, shortness of breath stable. - Patient Data Vitals - Most Recent: Last Vital Signs Temp 36.8 C 04/06/21 11:24 Pulse 110 H 04/06/21 11:24 Resp 16 04/06/21 11:24 BP 118/71 04/06/21 11:24 Pulse Ox 94 L 04/06/21 11:24 Weight - Most Recent: 125.6 kg I&O - Last 24 Hours: Intake & Output 04/05/21 04/06/21 04/06/21 22:59 06:59 14:59 Intake Total 1550 950 Output Total 125 880 Balance 1425 70 Lab Results Last 24 Hours: Laboratory Results - last 24 hr 04/05/21 04/05/21 04/06/21 Range/Units 14:01 22:30 05:15 WBC 13.18 H (4.0-11.0) K/uL RBC 4.02 L (4.50-5.90) M/uL Hgb 13.2 (13.0-17.0) g/dL Hct 40.8 (38.0-50.0) % MCV 101.5 H (80.0-98.0) fL MCH 32.8 H (27.0-32.0) pg MCHC 32.4 (31.0-37.0) g/dL RDW Std Deviation 54.2 (28.0-62.0) fl RDW Coeff of Sunny 15 (11.0-15.0) % Plt Count 156 (150-400) K/uL MPV 11.80 (7.40-12.00) fL Add Manual Diff YES Neutrophils % (Manual) 91 H (48.0-80.0) % Lymphocytes % (Manual) 4 L (16.0-40.0) % Monocytes % (Manual) 2 (0.0-15.0) % Eosinophils % (Manual) 1 (0.0-7.0) % Metamyelocytes % 1 % Myelocytes % 1 % Nucleated RBC % 0.0 /100WBC Absolute Seg Neuts 12.0 H (1.4-5.7) Lymphocytes # (Manual) 0.5 L (0.6-2.4) Monocytes # (Manual) 0.3 (0.0-0.8) Eosinophils # (Manual) 0.1 (0.0-0.7) Absolute Metamyelocyte 0.1 Absolute Myelocytes 0.1 Nucleated RBCs # 0 K/uL INR 1.80 Sodium (136-148) mmol/L Potassium (3.5-5.1) mmol/L Chloride (98-107) mmol/L Carbon Dioxide (21.0-32.0) mmol/L BUN (7.0-18.0) mg/dL Creatinine (0.8-1.3) mg/dL Est Cr Clr Drug Dosing mL/min Estimated GFR (MDRD) ml/min Glucose (74-106) mg/dL Calcium (8.5-10.1) mg/dL Phosphorus (2.6-4.7) mg/dL Magnesium (1.8-2.4) mg/dL Total Bilirubin (0.2-1.0) mg/dL AST (15-37) IU/L ALT (14-63) IU/L Alkaline Phosphatase (46-116) U/L Total Protein (6.4-8.2) g/dL Albumin (3.4-5.0) g/dL Globulin (2.6-4.0) g/dL Albumin/Globulin Ratio (0.9-1.6) Urine Color YELLOW Urine Appearance CLEAR Urine pH 5.0 (5.0-8.0) Ur Specific [place] 1.025 (1.001-1.035) Urine Protein NEGATIVE (NEGATIVE) mg/dL Urine Glucose (UA) NEGATIVE (NEGATIVE) mg/dL Urine Ketones NEGATIVE (NEGATIVE) mg/dL Urine Occult Blood NEGATIVE (NEGATIVE) Urine Nitrite NEGATIVE (NEGATIVE) Urine Bilirubin NEGATIVE (NEGATIVE) Urine Urobilinogen 0.2 (<2.0) EU/dL Ur Leukocyte Esterase NEGATIVE (NEGATIVE) 04/06/21 04/06/21 Range/Units 05:15 05:15 WBC (4.0-11.0) K/uL RBC (4.50-5.90) M/uL Hgb (13.0-17.0) g/dL Hct (38.0-50.0) % MCV (80.0-98.0) fL MCH (27.0-32.0) pg MCHC (31.0-37.0) g/dL RDW Std Deviation (28.0-62.0) fl RDW Coeff of Sunny (11.0-15.0) % Plt Count (150-400) K/uL MPV (7.40-12.00) fL Add Manual Diff Neutrophils % (Manual) (48.0-80.0) % Lymphocytes % (Manual) (16.0-40.0) % Monocytes % (Manual) (0.0-15.0) % Eosinophils % (Manual) (0.0-7.0) % Metamyelocytes % % Myelocytes % % Nucleated RBC % /100WBC Absolute Seg Neuts (1.4-5.7) Lymphocytes # (Manual) (0.6-2.4) Monocytes # (Manual) (0.0-0.8) Eosinophils # (Manual) (0.0-0.7) Absolute Metamyelocyte Absolute Myelocytes Nucleated RBCs # K/uL INR 1.86 Sodium 136 (136-148) mmol/L Potassium 3.4 L (3.5-5.1) mmol/L Chloride 97 L (98-107) mmol/L Carbon Dioxide 31.7 (21.0-32.0) mmol/L BUN 25 H (7.0-18.0) mg/dL Creatinine 1.1 (0.8-1.3) mg/dL Est Cr Clr Drug Dosing 65.76 mL/min Estimated GFR (MDRD) > 60.0 ml/min Glucose 173 H (74-106) mg/dL Calcium 7.6 L (8.5-10.1) mg/dL Phosphorus 4.4 (2.6-4.7) mg/dL Magnesium 1.9 (1.8-2.4) mg/dL Total Bilirubin 1.0 (0.2-1.0) mg/dL AST 24 (15-37) IU/L ALT 56 (14-63) IU/L Alkaline Phosphatase 60 (46-116) U/L Total Protein 5.2 L (6.4-8.2) g/dL Albumin 1.9 L (3.4-5.0) g/dL Globulin 3.3 (2.6-4.0) g/dL Albumin/Globulin Ratio 0.6 L (0.9-1.6) Urine Color Urine Appearance Urine pH (5.0-8.0) Ur Specific [place] (1.001-1.035) Urine Protein (NEGATIVE) mg/dL Urine Glucose (UA) (NEGATIVE) mg/dL Urine Ketones (NEGATIVE) mg/dL Urine Occult Blood (NEGATIVE) Urine Nitrite (NEGATIVE) Urine Bilirubin (NEGATIVE) Urine Urobilinogen (<2.0) EU/dL Ur Leukocyte Esterase (NEGATIVE) Tom Results Last 24 Hours: Microbiology 04/04/21 19:46 Aerobic Blood Culture - Preliminary Blood - Venous - Lab Draw NO GROWTH AFTER 1 DAY Anaerobic Blood Culture - Preliminary NO GROWTH AFTER 1 DAY 04/04/21 19:46 Aerobic Blood Culture - Preliminary Blood - Venous NO GROWTH AFTER 1 DAY Anaerobic Blood Culture - Preliminary NO GROWTH AFTER 1 DAY Med Orders - Current: Current Medications Albuterol/Ipratropium (Albuterol/Ipratropium 3.0-0.5 Mg/3 Ml Neb Soln) 3 ml NEB Q4HRRT PRN PRN Reason: Shortness of Breath Last Admin: 04/05/21 12:07 Dose: 3 ml Documented by: Aspirin (Aspirin 81 Mg Tab.Chew) 81 mg PO DAILY [facility] Last Admin: 04/06/21 08:40 Dose: 81 mg Documented by: Atorvastatin Calcium (Atorvastatin 40 Mg Tab) 40 mg PO BEDTIME [facility] Last Admin: 04/05/21 22:11 Dose: 40 mg Documented by: Budesonide (Budesonide 0.5 Mg/2 Ml Neb Susp) 1 mg INH TID [facility] Last Admin: 04/06/21 05:54 Dose: 1 mg Documented by: Docusate Sodium (Docusate Sodium 100 Mg Cap) 100 mg PO DAILY [facility] Last Admin: 04/06/21 08:40 Dose: 100 mg Documented by: Enoxaparin Sodium (Enoxaparin 40 Mg/0.4 Ml Syringe) 40 mg SUBCUT Q12HR [facility] Last Admin: 04/06/21 08:40 Dose: 40 mg Documented by: Furosemide (Furosemide 40 Mg/4 Ml Vial) 40 mg IVPUSH DAILY [facility] Last Admin: 04/06/21 08:40 Dose: 40 mg Documented by: Piperacillin Sod/Tazobactam (Sod 3.375 gm/ Sodium Chloride) 50 mls @ 100 mls/hr IV Q8H [facility] Last Admin: 04/06/21 05:40 Dose: 100 mls/hr Documented by: Vancomycin HCl 1.5 gm/ Premix 300 mls @ 200 mls/hr IV Q12H [facility] Last Admin: 04/06/21 11:11 Dose: 200 mls/hr Documented by: Levothyroxine Sodium (Levothyroxine 150 Mcg Tab) 150 mcg PO ACBREAKFAST [facility] Last Admin: 04/06/21 08:40 Dose: 150 mcg Documented by: Potassium Chloride (Potassium Chloride 20 Meq Tab.Er) 40 meq PO ONETIME ONE Stop: 04/06/21 12:31 Prednisone (Prednisone 10 Mg Tab) 10 mg PO BEDTIME [facility] Last Admin: 04/05/21 22:11 Dose: 10 mg Documented by: Prednisone (Prednisone 20 Mg Tab) 20 mg PO DAILY [facility] Last Admin: 04/06/21 08:40 Dose: 20 mg Documented by: Vancomycin HCl (Pharmacy To Dose - Vancomycin) 1 dose .XX ASDIRECTED [facility] Warfarin Sodium (Warfarin Ask Dosing) 1 each PO Q24H [facility] Discontinued Medications Albuterol/Ipratropium (Albuterol/Ipratropium 3.0-0.5 Mg/3 Ml Neb Soln) 3 ml INH TID PRN PRN Reason: Shortness of Breath Aspirin (Aspirin 81 Mg Tab.Chew) 324 mg PO ONETIME ONE Stop: 04/04/21 16:13 Last Admin: 04/04/21 16:26 Dose: 324 mg Documented by: Furosemide (Furosemide 20 Mg/2 Ml Vial) 20 mg IVPUSH ONETIME ONE Stop: 04/04/21 22:18 Last Admin: 04/04/21 23:02 Dose: 20 mg Documented by: Furosemide (Furosemide 40 Mg/4 Ml Vial) 20 mg IVPUSH NOW ONE Stop: 04/05/21 09:07 Last Admin: 04/05/21 09:39 Dose: 20 mg Documented by: Furosemide (Furosemide 40 Mg/4 Ml Vial) 20 mg IVPUSH ONETIME ONE Stop: 04/05/21 17:01 Last Admin: 04/05/21 16:48 Dose: Not Given Documented by: Furosemide (Furosemide 20 Mg/2 Ml Vial) Confirm Administered Dose 20 mg .ROUTE .STK-MED ONE Stop: 04/05/21 21:47 Last Admin: 04/05/21 22:10 Dose: Not Given Documented by: Furosemide (Furosemide 40 Mg/4 Ml Vial) 20 mg IVPUSH NOW ONE Stop: 04/05/21 22:00 Last Admin: 04/05/21 22:09 Dose: 20 mg Documented by: Ceftriaxone Sodium/Dextrose 2 (gm/ Premix) 50 mls @ 100 mls/hr IV ONETIME ONE Stop: 04/04/21 17:58 Last Admin: 04/04/21 17:45 Dose: 100 mls/hr Documented by: Piperacillin Sod/Tazobactam (Sod 3.375 gm/ Sodium Chloride) 50 mls @ 100 mls/hr IV ONETIME ONE Stop: 04/04/21 21:32 Last Admin: 04/04/21 21:49 Dose: 100 mls/hr Documented by: Iopamidol (Iopamidol 755 Mg/Ml 500 Ml Multipack Bottle) 100 ml IVPUSH ONETIME ONE Stop: 04/04/21 18:43 Last Admin: 04/04/21 18:44 Dose: 100 ml Documented by: Tamsulosin HCl (Tamsulosin 0.4 Mg Cap.Er) 0.4 mg PO ONETIME ONE Stop: 04/05/21 19:16 Last Admin: 04/05/21 19:53 Dose: 0.4 mg Documented by: Warfarin Sodium (Warfarin 2 Mg Tab) 4 mg PO ONETIME ONE Stop: 04/05/21 14:01 Last Admin: 04/05/21 14:05 Dose: 4 mg Documented by: - Exam General: Alert, Oriented Neck: Supple Lungs: Clear to Auscultation, Normal Respiratory Effort Cardiovascular: Regular Rate, Regular Rhythm GI/Abdominal Exam: Soft, Non-Tender, No Distention Extremities: Non-Tender, No Pedal Edema Skin: Other (erythema of left) - Patient Data Lab Results Last 24 hrs: Laboratory Results - last 24 hr 04/05/21 04/05/21 04/06/21 Range/Units 14:01 22:30 05:15 WBC 13.18 H (4.0-11.0) K/uL RBC 4.02 L (4.50-5.90) M/uL Hgb 13.2 (13.0-17.0) g/dL Hct 40.8 (38.0-50.0) % MCV 101.5 H (80.0-98.0) fL MCH 32.8 H (27.0-32.0) pg MCHC 32.4 (31.0-37.0) g/dL RDW Std Deviation 54.2 (28.0-62.0) fl RDW Coeff of Sunny 15 (11.0-15.0) % Plt Count 156 (150-400) K/uL MPV 11.80 (7.40-12.00) fL Add Manual Diff YES Neutrophils % (Manual) 91 H (48.0-80.0) % Lymphocytes % (Manual) 4 L (16.0-40.0) % Monocytes % (Manual) 2 (0.0-15.0) % Eosinophils % (Manual) 1 (0.0-7.0) % Metamyelocytes % 1 % Myelocytes % 1 % Nucleated RBC % 0.0 /100WBC Absolute Seg Neuts 12.0 H (1.4-5.7) Lymphocytes # (Manual) 0.5 L (0.6-2.4) Monocytes # (Manual) 0.3 (0.0-0.8) Eosinophils # (Manual) 0.1 (0.0-0.7) Absolute Metamyelocyte 0.1 Absolute Myelocytes 0.1 Nucleated RBCs # 0 K/uL INR 1.80 Sodium (136-148) mmol/L Potassium (3.5-5.1) mmol/L Chloride (98-107) mmol/L Carbon Dioxide (21.0-32.0) mmol/L BUN (7.0-18.0) mg/dL Creatinine (0.8-1.3) mg/dL Est Cr Clr Drug Dosing mL/min Estimated GFR (MDRD) ml/min Glucose (74-106) mg/dL Calcium (8.5-10.1) mg/dL Phosphorus (2.6-4.7) mg/dL Magnesium (1.8-2.4) mg/dL Total Bilirubin (0.2-1.0) mg/dL AST (15-37) IU/L ALT (14-63) IU/L Alkaline Phosphatase (46-116) U/L Total Protein (6.4-8.2) g/dL Albumin (3.4-5.0) g/dL Globulin (2.6-4.0) g/dL Albumin/Globulin Ratio (0.9-1.6) Urine Color YELLOW Urine Appearance CLEAR Urine pH 5.0 (5.0-8.0) Ur Specific [place] 1.025 (1.001-1.035) Urine Protein NEGATIVE (NEGATIVE) mg/dL Urine Glucose (UA) NEGATIVE (NEGATIVE) mg/dL Urine Ketones NEGATIVE (NEGATIVE) mg/dL Urine Occult Blood NEGATIVE (NEGATIVE) Urine Nitrite NEGATIVE (NEGATIVE) Urine Bilirubin NEGATIVE (NEGATIVE) Urine Urobilinogen 0.2 (<2.0) EU/dL Ur Leukocyte Esterase NEGATIVE (NEGATIVE) 04/06/21 04/06/21 Range/Units 05:15 05:15 WBC (4.0-11.0) K/uL RBC (4.50-5.90) M/uL Hgb (13.0-17.0) g/dL Hct (38.0-50.0) % MCV (80.0-98.0) fL MCH (27.0-32.0) pg MCHC (31.0-37.0) g/dL RDW Std Deviation (28.0-62.0) fl RDW Coeff of Sunny (11.0-15.0) % Plt Count (150-400) K/uL MPV (7.40-12.00) fL Add Manual Diff Neutrophils % (Manual) (48.0-80.0) % Lymphocytes % (Manual) (16.0-40.0) % Monocytes % (Manual) (0.0-15.0) % Eosinophils % (Manual) (0.0-7.0) % Metamyelocytes % % Myelocytes % % Nucleated RBC % /100WBC Absolute Seg Neuts (1.4-5.7) Lymphocytes # (Manual) (0.6-2.4) Monocytes # (Manual) (0.0-0.8) Eosinophils # (Manual) (0.0-0.7) Absolute Metamyelocyte Absolute Myelocytes Nucleated RBCs # K/uL INR 1.86 Sodium 136 (136-148) mmol/L Potassium 3.4 L (3.5-5.1) mmol/L Chloride 97 L (98-107) mmol/L Carbon Dioxide 31.7 (21.0-32.0) mmol/L BUN 25 H (7.0-18.0) mg/dL Creatinine 1.1 (0.8-1.3) mg/dL Est Cr Clr Drug Dosing 65.76 mL/min Estimated GFR (MDRD) > 60.0 ml/min Glucose 173 H (74-106) mg/dL Calcium 7.6 L (8.5-10.1) mg/dL Phosphorus 4.4 (2.6-4.7) mg/dL Magnesium 1.9 (1.8-2.4) mg/dL Total Bilirubin 1.0 (0.2-1.0) mg/dL AST 24 (15-37) IU/L ALT 56 (14-63) IU/L Alkaline Phosphatase 60 (46-116) U/L Total Protein 5.2 L (6.4-8.2) g/dL Albumin 1.9 L (3.4-5.0) g/dL Globulin 3.3 (2.6-4.0) g/dL Albumin/Globulin Ratio 0.6 L (0.9-1.6) Urine Color Urine Appearance Urine pH (5.0-8.0) Ur Specific [place] (1.001-1.035) Urine Protein (NEGATIVE) mg/dL Urine Glucose (UA) (NEGATIVE) mg/dL Urine Ketones (NEGATIVE) mg/dL Urine Occult Blood (NEGATIVE) Urine Nitrite (NEGATIVE) Urine Bilirubin (NEGATIVE) Urine Urobilinogen (<2.0) EU/dL Ur Leukocyte Esterase (NEGATIVE) Result Diagrams: 04/06/21 05:15 04/06/21 05:15 Tom Results Last 24 hrs: Microbiology 04/04/21 19:46 Aerobic Blood Culture - Preliminary Blood - Venous - Lab Draw NO GROWTH AFTER 1 DAY Anaerobic Blood Culture - Preliminary NO GROWTH AFTER 1 DAY 04/04/21 19:46 Aerobic Blood Culture - Preliminary Blood - Venous NO GROWTH AFTER 1 DAY Anaerobic Blood Culture - Preliminary NO GROWTH AFTER 1 DAY Sepsis Event Note - Evaluation Sepsis Screening Result: No Definite Risk - Focused Exam Vital Signs: Vital Signs Temp Pulse Resp BP Pulse Ox 04/06/21 11:24 36.8 C 110 H 16 118/71 94 L 04/06/21 08:47 36.6 C 95 18 108/61 91 L 04/06/21 04:00 36.8 C 95 21 H 119/61 91 L - Problem List Review Problem List Initiated/Reviewed/Updated: No - My Orders Last 24 Hours: My Active Orders 04/05/21 21:13 Communication Order [RC] ROUTINE 04/06/21 12:30 Potassium Chloride [Klor-Con M20] 40 meq PO ONETIME ONE - Plan Plan:: 80 y/o M admitted for left arm cellultiits Leucocytosis improving cont IV Zosyn and vancomycin continue IV lasix for now, not in cute CHF but has anasarca cont po steroids cont oxygen as needed cont home meds as appropriate DuoNebs as needed Has been retaining urine, will bladder scan q6h Monitor and replete electrolytes daily
[2021-04-06] MEDS: Pantoprazole 40 MG Tab.CR PO SCH (12:58)
[2021-04-06] MEDS: predniSONE 10 MG Tab PO SCH (20:52)
[2021-04-06] MEDS: atorvaSTATin 40 MG Tab PO SCH (20:52)
[2021-04-07 05:52] LABS: BLOOD UREA NITROGEN,BUN 23 mg/dL (7.0-18.0); CARBON DIOXIDE,CO2 33.6 mmol/L (21.0-32.0); CHLORIDE,CL 98 mmol/L (98-107); GLUCOSE RANDOM 164 mg/dL (74-106); POTASSIUM,K 3.4 mmol/L (3.5-5.1); SODIUM,NA 139 mmol/L (136-148)
[2021-04-07] MEDS: Piperacillin/Tazobactam 3.375 GM in Sodium Chloride 0.9% 50 ML IV SCH ×3 (06:07→22:28)
[2021-04-07] MEDS: Budesonide 0.5 MG/2 ML Neb Susp INH SCH ×3 (06:19→22:28)
[2021-04-07] MEDS ORDERED: Budesonide 0.5 MG/2 ML Neb Susp ONE (06:23)
[2021-04-07] MEDS: Furosemide 40 MG/4 ML VIAL IVPUSH SCH ×2 (08:27→14:22)
[2021-04-07] MEDS: Aspirin 81 MG Tab.Chew PO SCH (08:30)
[2021-04-07] MEDS: Docusate Sodium 100 MG Cap PO SCH (08:30)
[2021-04-07] MEDS: Levothyroxine 150 MCG Tab PO SCH (08:31)
[2021-04-07] MEDS: Pantoprazole 40 MG Tab.CR PO SCH (08:31)
[2021-04-07] MEDS: predniSONE 20 MG Tab PO SCH (08:31)
[2021-04-07] MEDS: Enoxaparin 40 MG/0.4 ML Syringe SUBCUT SCH (08:32)
[2021-04-07] MEDS ORDERED: Bisacodyl 10 MG Supp RECTAL PRN (09:18)
--- NOTE | 2021-04-07 10:18 | PCM.PN ---
- General Info Date of Service: 04/07/21 Admission Dx/Problem (Free Text): Admission Diagnosis/Problem Admission Diagnosis/Problem Cellulitis Subjective Update: Reports he is feeling intermittently more short breath denies any chest pain. Feels as though his arm is getting better continues to have some pain to his left hand due to swelling and hematoma. Denies any abdominal pain continues to report peripheral edema. Reports he is urinating well this morning and feels as though he is almost near back to normal. Reports that he is having constipation and would like some MiraLAX to help with this. Functional Status: Reports: Pain Controlled, Tolerating Diet, Ambulating, Urinating - Review of Systems General: Reports: Weakness (Generalized) Pulmonary: Reports: Shortness of Breath. Denies: Cough, Wheezing Cardiovascular: Reports: Dyspnea on Exertion. Denies: Chest Pain Gastrointestinal: Reports: Constipation. Denies: Abdominal Pain, Nausea, Vomiting Genitourinary: Reports: No Symptoms. Denies: Dysuria, Frequency, Burning Musculoskeletal: Reports: No Symptoms Skin: Reports: Bruising (Left hand), Other (Redness and swelling improving to left forearm and hand) Neurological: Reports: No Symptoms Psychiatric: Reports: No Symptoms - Patient Data Vitals - Most Recent: Last Vital Signs Temp 98.4 F 04/07/21 08:00 Pulse 88 04/07/21 08:00 Resp 20 04/07/21 08:00 BP 137/72 04/07/21 08:00 Pulse Ox 95 04/07/21 08:00 Weight - Most Recent: 126.824 kg I&O - Last 24 Hours: Intake & Output 04/06/21 04/07/21 04/07/21 22:59 06:59 14:59 Intake Total 950 850 Output Total 1250 250 Balance -300 600 Lab Results Last 24 Hours: Laboratory Results - last 24 hr 04/06/21 04/07/21 04/07/21 Range/Units 22:00 05:18 05:18 WBC 13.69 H (4.0-11.0) K/uL RBC 4.01 L (4.50-5.90) M/uL Hgb 13.1 (13.0-17.0) g/dL Hct 40.2 (38.0-50.0) % MCV 100.2 H (80.0-98.0) fL MCH 32.7 H (27.0-32.0) pg MCHC 32.6 (31.0-37.0) g/dL RDW Std Deviation 51.9 (28.0-62.0) fl RDW Coeff of Sunny 14 (11.0-15.0) % Plt Count 161 (150-400) K/uL MPV 11.80 (7.40-12.00) fL Add Manual Diff YES Neutrophils % (Manual) 86 H (48.0-80.0) % Lymphocytes % (Manual) 4 L (16.0-40.0) % Monocytes % (Manual) 10 (0.0-15.0) % Nucleated RBC % 0.0 /100WBC Absolute Seg Neuts 11.8 H (1.4-5.7) Lymphocytes # (Manual) 0.5 L (0.6-2.4) Monocytes # (Manual) 1.4 H (0.0-0.8) Nucleated RBCs # 0 K/uL INR Sodium 139 (136-148) mmol/L Potassium 3.4 L (3.5-5.1) mmol/L Chloride 98 (98-107) mmol/L Carbon Dioxide 33.6 H (21.0-32.0) mmol/L BUN 23 H (7.0-18.0) mg/dL Creatinine 1.0 (0.8-1.3) mg/dL Est Cr Clr Drug Dosing 72.33 mL/min Estimated GFR (MDRD) > 60.0 ml/min Glucose 164 H (74-106) mg/dL Calcium 8.1 L (8.5-10.1) mg/dL Total Bilirubin 1.0 (0.2-1.0) mg/dL AST 26 (15-37) IU/L ALT 57 (14-63) IU/L Alkaline Phosphatase 64 (46-116) U/L Total Protein 5.7 L (6.4-8.2) g/dL Albumin 2.2 L (3.4-5.0) g/dL Globulin 3.5 (2.6-4.0) g/dL Albumin/Globulin Ratio 0.6 L (0.9-1.6) Vancomycin Trough 18.1 H (5.0-10.0) ug/mL 04/07/21 Range/Units 05:18 WBC (4.0-11.0) K/uL RBC (4.50-5.90) M/uL Hgb (13.0-17.0) g/dL Hct (38.0-50.0) % MCV (80.0-98.0) fL MCH (27.0-32.0) pg MCHC (31.0-37.0) g/dL RDW Std Deviation (28.0-62.0) fl RDW Coeff of Sunny (11.0-15.0) % Plt Count (150-400) K/uL MPV (7.40-12.00) fL Add Manual Diff Neutrophils % (Manual) (48.0-80.0) % Lymphocytes % (Manual) (16.0-40.0) % Monocytes % (Manual) (0.0-15.0) % Nucleated RBC % /100WBC Absolute Seg Neuts (1.4-5.7) Lymphocytes # (Manual) (0.6-2.4) Monocytes # (Manual) (0.0-0.8) Nucleated RBCs # K/uL INR 2.48 Sodium (136-148) mmol/L Potassium (3.5-5.1) mmol/L Chloride (98-107) mmol/L Carbon Dioxide (21.0-32.0) mmol/L BUN (7.0-18.0) mg/dL Creatinine (0.8-1.3) mg/dL Est Cr Clr Drug Dosing mL/min Estimated GFR (MDRD) ml/min Glucose (74-106) mg/dL Calcium (8.5-10.1) mg/dL Total Bilirubin (0.2-1.0) mg/dL AST (15-37) IU/L ALT (14-63) IU/L Alkaline Phosphatase (46-116) U/L Total Protein (6.4-8.2) g/dL Albumin (3.4-5.0) g/dL Globulin (2.6-4.0) g/dL Albumin/Globulin Ratio (0.9-1.6) Vancomycin Trough (5.0-10.0) ug/mL Tom Results Last 24 Hours: Microbiology 04/04/21 19:46 Aerobic Blood Culture - Preliminary Blood - Venous - Lab Draw NO GROWTH AFTER 2 DAYS Anaerobic Blood Culture - Preliminary NO GROWTH AFTER 2 DAYS 04/04/21 19:46 Aerobic Blood Culture - Preliminary Blood - Venous NO GROWTH AFTER 2 DAYS Anaerobic Blood Culture - Preliminary NO GROWTH AFTER 2 DAYS Med Orders - Current: Current Medications Albuterol/Ipratropium (Albuterol/Ipratropium 3.0-0.5 Mg/3 Ml Neb Soln) 3 ml NEB Q4HRRT PRN PRN Reason: Shortness of Breath Last Admin: 04/05/21 12:07 Dose: 3 ml Documented by: Aspirin (Aspirin 81 Mg Tab.Chew) 81 mg PO DAILY [facility] Last Admin: 04/07/21 08:30 Dose: 81 mg Documented by: Atorvastatin Calcium (Atorvastatin 40 Mg Tab) 40 mg PO BEDTIME [facility] Last Admin: 04/06/21 20:52 Dose: 40 mg Documented by: Bisacodyl (Bisacodyl 10 Mg Supp) 10 mg RECTAL DAILY PRN PRN Reason: if no BM in 2 days Budesonide (Budesonide 0.5 Mg/2 Ml Neb Susp) 1 mg INH TID [facility] Last Admin: 04/07/21 06:19 Dose: 1 mg Documented by: Docusate Sodium (Docusate Sodium 100 Mg Cap) 100 mg PO DAILY [facility] Last Admin: 04/07/21 08:30 Dose: 100 mg Documented by: Enoxaparin Sodium (Enoxaparin 40 Mg/0.4 Ml Syringe) 40 mg SUBCUT Q12HR [facility] Last Admin: 04/07/21 08:32 Dose: 40 mg Documented by: Furosemide (Furosemide 40 Mg/4 Ml Vial) 40 mg IVPUSH DAILY [facility] Last Admin: 04/07/21 08:27 Dose: 40 mg Documented by: Piperacillin Sod/Tazobactam (Sod 3.375 gm/ Sodium Chloride) 50 mls @ 100 mls/hr IV Q8H [facility] Last Admin: 04/07/21 06:07 Dose: 100 mls/hr Documented by: Vancomycin HCl 1.5 gm/ Premix 300 mls @ 200 mls/hr IV Q24H [facility] Levothyroxine Sodium (Levothyroxine 150 Mcg Tab) 150 mcg PO ACBREAKFAST [facility] Last Admin: 04/07/21 08:31 Dose: 150 mcg Documented by: Pantoprazole Sodium (Pantoprazole 40 Mg Tab.Cr) 40 mg PO ACBREAKFAST [facility] Last Admin: 04/07/21 08:31 Dose: 40 mg Documented by: Polyethylene Glycol (Polyethylene Glycol 3350 Powder 17 Gm Packet) 17 gm PO DAILY [facility] Prednisone (Prednisone 10 Mg Tab) 10 mg PO BEDTIME [facility] Last Admin: 04/06/21 20:52 Dose: 10 mg Documented by: Prednisone (Prednisone 20 Mg Tab) 20 mg PO DAILY [facility] Last Admin: 04/07/21 08:31 Dose: 20 mg Documented by: Vancomycin HCl (Pharmacy To Dose - Vancomycin) 1 dose .XX ASDIRECTED [facility] Warfarin Sodium (Warfarin Ask Dosing) 1 each PO Q24H [facility] Last Admin: 04/06/21 14:03 Dose: Not Given Documented by: Discontinued Medications Albuterol/Ipratropium (Albuterol/Ipratropium 3.0-0.5 Mg/3 Ml Neb Soln) 3 ml INH TID PRN PRN Reason: Shortness of Breath Aspirin (Aspirin 81 Mg Tab.Chew) 324 mg PO ONETIME ONE Stop: 04/04/21 16:13 Last Admin: 04/04/21 16:26 Dose: 324 mg Documented by: Budesonide (Budesonide 0.5 Mg/2 Ml Neb Susp) Confirm Administered Dose 0.5 mg .ROUTE .STK-MED ONE Stop: 04/07/21 06:24 Furosemide (Furosemide 20 Mg/2 Ml Vial) 20 mg IVPUSH ONETIME ONE Stop: 04/04/21 22:18 Last Admin: 04/04/21 23:02 Dose: 20 mg Documented by: Furosemide (Furosemide 40 Mg/4 Ml Vial) 20 mg IVPUSH NOW ONE Stop: 04/05/21 09:07 Last Admin: 04/05/21 09:39 Dose: 20 mg Documented by: Furosemide (Furosemide 40 Mg/4 Ml Vial) 20 mg IVPUSH ONETIME ONE Stop: 04/05/21 17:01 Last Admin: 04/05/21 16:48 Dose: Not Given Documented by: Furosemide (Furosemide 20 Mg/2 Ml Vial) Confirm Administered Dose 20 mg .ROUTE .STK-MED ONE Stop: 04/05/21 21:47 Last Admin: 04/05/21 22:10 Dose: Not Given Documented by: Furosemide (Furosemide 40 Mg/4 Ml Vial) 20 mg IVPUSH NOW ONE Stop: 04/05/21 22:00 Last Admin: 04/05/21 22:09 Dose: 20 mg Documented by: Ceftriaxone Sodium/Dextrose 2 (gm/ Premix) 50 mls @ 100 mls/hr IV ONETIME ONE Stop: 04/04/21 17:58 Last Admin: 04/04/21 17:45 Dose: 100 mls/hr Documented by: Piperacillin Sod/Tazobactam (Sod 3.375 gm/ Sodium Chloride) 50 mls @ 100 mls/hr IV ONETIME ONE Stop: 04/04/21 21:32 Last Admin: 04/04/21 21:49 Dose: 100 mls/hr Documented by: Vancomycin HCl 1.5 gm/ Premix 300 mls @ 200 mls/hr IV Q12H [facility] Last Admin: 04/06/21 23:14 Dose: Not Given Documented by: Iopamidol (Iopamidol 755 Mg/Ml 500 Ml Multipack Bottle) 100 ml IVPUSH ONETIME ONE Stop: 04/04/21 18:43 Last Admin: 04/04/21 18:44 Dose: 100 ml Documented by: Potassium Chloride (Potassium Chloride 20 Meq Tab.Er) 40 meq PO ONETIME ONE Stop: 04/06/21 12:31 Last Admin: 04/06/21 12:58 Dose: 40 meq Documented by: Tamsulosin HCl (Tamsulosin 0.4 Mg Cap.Er) 0.4 mg PO ONETIME ONE Stop: 04/05/21 19:16 Last Admin: 04/05/21 19:53 Dose: 0.4 mg Documented by: Warfarin Sodium (Warfarin 2 Mg Tab) 4 mg PO ONETIME ONE Stop: 04/05/21 14:01 Last Admin: 04/05/21 14:05 Dose: 4 mg Documented by: Warfarin Sodium (Warfarin 1 Mg Tab) 3 mg PO ONETIME ONE Stop: 04/06/21 14:01 Last Admin: 04/06/21 13:35 Dose: 3 mg Documented by: - Exam General: Alert, Oriented, Cooperative, Mild Distress (Mildly shortness of breath noted) Lungs: Decreased Breath Sounds (Throughout), Crackles (Fine crackles bibasilar) Cardiovascular: Regular Rate, Regular Rhythm GI/Abdominal Exam: Normal Bowel Sounds, Soft, Non-Tender Extremities: Normal Inspection, Normal Range of Motion, Non-Tender, Pedal Edema (+2 pitting edema to lower extremities) Wound/Incisions: Healing Well, Erythema Improving (Wrinkling and edema improvement to left forearm. Ecchymosis present continues to left hand. Patient able to move wrist elbow and fingers without significant pain.) Neurological: No New Focal Deficit Psy/Mental Status: Alert, Normal Affect, Normal Mood - Patient Data Lab Results Last 24 hrs: Laboratory Results - last 24 hr 04/06/21 04/07/21 04/07/21 Range/Units 22:00 05:18 05:18 WBC 13.69 H (4.0-11.0) K/uL RBC 4.01 L (4.50-5.90) M/uL Hgb 13.1 (13.0-17.0) g/dL Hct 40.2 (38.0-50.0) % MCV 100.2 H (80.0-98.0) fL MCH 32.7 H (27.0-32.0) pg MCHC 32.6 (31.0-37.0) g/dL RDW Std Deviation 51.9 (28.0-62.0) fl RDW Coeff of Sunny 14 (11.0-15.0) % Plt Count 161 (150-400) K/uL MPV 11.80 (7.40-12.00) fL Add Manual Diff YES Neutrophils % (Manual) 86 H (48.0-80.0) % Lymphocytes % (Manual) 4 L (16.0-40.0) % Monocytes % (Manual) 10 (0.0-15.0) % Nucleated RBC % 0.0 /100WBC Absolute Seg Neuts 11.8 H (1.4-5.7) Lymphocytes # (Manual) 0.5 L (0.6-2.4) Monocytes # (Manual) 1.4 H (0.0-0.8) Nucleated RBCs # 0 K/uL INR Sodium 139 (136-148) mmol/L Potassium 3.4 L (3.5-5.1) mmol/L Chloride 98 (98-107) mmol/L Carbon Dioxide 33.6 H (21.0-32.0) mmol/L BUN 23 H (7.0-18.0) mg/dL Creatinine 1.0 (0.8-1.3) mg/dL Est Cr Clr Drug Dosing 72.33 mL/min Estimated GFR (MDRD) > 60.0 ml/min Glucose 164 H (74-106) mg/dL Calcium 8.1 L (8.5-10.1) mg/dL Total Bilirubin 1.0 (0.2-1.0) mg/dL AST 26 (15-37) IU/L ALT 57 (14-63) IU/L Alkaline Phosphatase 64 (46-116) U/L Total Protein 5.7 L (6.4-8.2) g/dL Albumin 2.2 L (3.4-5.0) g/dL Globulin 3.5 (2.6-4.0) g/dL Albumin/Globulin Ratio 0.6 L (0.9-1.6) Vancomycin Trough 18.1 H (5.0-10.0) ug/mL 04/07/21 Range/Units 05:18 WBC (4.0-11.0) K/uL RBC (4.50-5.90) M/uL Hgb (13.0-17.0) g/dL Hct (38.0-50.0) % MCV (80.0-98.0) fL MCH (27.0-32.0) pg MCHC (31.0-37.0) g/dL RDW Std Deviation (28.0-62.0) fl RDW Coeff of Sunny (11.0-15.0) % Plt Count (150-400) K/uL MPV (7.40-12.00) fL Add Manual Diff Neutrophils % (Manual) (48.0-80.0) % Lymphocytes % (Manual) (16.0-40.0) % Monocytes % (Manual) (0.0-15.0) % Nucleated RBC % /100WBC Absolute Seg Neuts (1.4-5.7) Lymphocytes # (Manual) (0.6-2.4) Monocytes # (Manual) (0.0-0.8) Nucleated RBCs # K/uL INR 2.48 Sodium (136-148) mmol/L Potassium (3.5-5.1) mmol/L Chloride (98-107) mmol/L Carbon Dioxide (21.0-32.0) mmol/L BUN (7.0-18.0) mg/dL Creatinine (0.8-1.3) mg/dL Est Cr Clr Drug Dosing mL/min Estimated GFR (MDRD) ml/min Glucose (74-106) mg/dL Calcium (8.5-10.1) mg/dL Total Bilirubin (0.2-1.0) mg/dL AST (15-37) IU/L ALT (14-63) IU/L Alkaline Phosphatase (46-116) U/L Total Protein (6.4-8.2) g/dL Albumin (3.4-5.0) g/dL Globulin (2.6-4.0) g/dL Albumin/Globulin Ratio (0.9-1.6) Vancomycin Trough (5.0-10.0) ug/mL Result Diagrams: 04/07/21 05:18 04/07/21 05:18 Tom Results Last 24 hrs: Microbiology 04/04/21 19:46 Aerobic Blood Culture - Preliminary Blood - Venous - Lab Draw NO GROWTH AFTER 2 DAYS Anaerobic Blood Culture - Preliminary NO GROWTH AFTER 2 DAYS 04/04/21 19:46 Aerobic Blood Culture - Preliminary Blood - Venous NO GROWTH AFTER 2 DAYS Anaerobic Blood Culture - Preliminary NO GROWTH AFTER 2 DAYS Sepsis Event Note - Evaluation Sepsis Screening Result: No Definite Risk - Focused Exam Vital Signs: Vital Signs Temp Pulse Resp BP Pulse Ox 04/07/21 08:00 98.4 F 88 20 137/72 95 04/07/21 04:00 97.8 F 88 30 H 147/63 H 88 L - Problem List & Annotations (1) Cellulitis SNOMED Code(s): 078156508 Code(s): L03.90 - CELLULITIS, UNSPECIFIED Status: Acute Current Visit: Yes Qualifiers: Site of cellulitis: extremity Site of cellulitis of extremity: upper extremity Laterality: left Qualified Code(s): L03.114 - Cellulitis of left upper limb (2) Anasarca SNOMED Code(s): 413289272, 846831265 Code(s): R60.1 - GENERALIZED EDEMA Status: Acute Current Visit: Yes (3) Hypoalbuminemia SNOMED Code(s): 524792763 Code(s): E88.09 - OTH DISORDERS OF PLASMA-PROTEIN METABOLISM, NEC Status: Acute Current Visit: Yes (4) Atypical pneumonia SNOMED Code(s): 835347756 Code(s): J18.9 - PNEUMONIA, UNSPECIFIED ORGANISM Status: Acute Current Visit: No (5) Constipation SNOMED Code(s): 60760877 Code(s): K59.00 - CONSTIPATION, UNSPECIFIED Status: Acute Current Visit: No (6) Chronic respiratory failure with hypoxia SNOMED Code(s): 224048632 Code(s): J96.11 - CHRONIC RESPIRATORY FAILURE WITH HYPOXIA Status: Chronic Current Visit: No (7) History of DVT (deep vein thrombosis) SNOMED Code(s): 172231424 Code(s): Z86.718 - PERSONAL HISTORY OF OTHER VENOUS THROMBOSIS AND EMBOLISM Status: Chronic Current Visit: No (8) Hypothyroidism SNOMED Code(s): 59008934 Code(s): E03.9 - HYPOTHYROIDISM, UNSPECIFIED Status: Chronic Current Visit: No (9) Oxygen dependent SNOMED Code(s): 083757607988 Code(s): Z99.81 - DEPENDENCE ON SUPPLEMENTAL OXYGEN Status: Chronic Current Visit: No (10) Pulmonary fibrosis SNOMED Code(s): 80831707 Code(s): J84.10 - PULMONARY FIBROSIS, UNSPECIFIED Status: Chronic Current Visit: No - Problem List Review Problem List Initiated/Reviewed/Updated: Yes - My Orders Last 24 Hours: My Active Orders 04/07/21 09:18 bisacodyL [Dulcolax] 10 mg RECTAL DAILY PRN 04/08/21 09:00 polyethylene glycoL 3350 [MiraLAX] 17 gm PO DAILY - Plan Plan:: 80 y/o M admitted for left arm cellultiits 1. Left arm cellulitis -Continues to improve -Keep arm elevated as much as possible -Continue Zosyn and vancomycin 2. Pulmonary edema, possible CHF with anasarca, possible atypical pneumonia -Chest x-ray obtained today due to increasing oxygen demand -Chest x-ray reports increasing by lateral reticular and hazy opacities specially in the upper lobes. -We will add azithromycin to cover for any atypical otherwise covered well with Zosyn and vancomycin -We will also increase Lasix to 40 mg IV twice daily -Strict I's and O's, daily weight low-sodium diet 2 L fluid restriction -Has been urinating more without assistance. -Give potassium dose today. 3. Pulmonary fibrosis, chronic hypoxic respiratory failure -Continue oxygen titrate as needed to keep sats greater than 88%. -Encourage I-S -Encourage up to chair and ambulation as tolerated -Recently obtained for toxin injection to help with history of Boop and pulmonary fibrosis this will take at least 2 months to work effectively or show signs of working for his pulmonary fibrosis. -Continue home dose of steroids -DuoNebs as needed 4. Hypothyroidism -Continue levothyroxine 5. History DVT on Coumadin -INR 2.48 today we will stop Lovenox -Continue warfarin daily with pharmacy to help with dosing appreciate their assistance VTE prophylaxis: Warfarin CODE STATUS full code Dispo: We will make inpatient as patient will need greater than 2 midnight stay for improvement. I did speak with Bethany patient's daughter today regarding repeat chest x-ray and plan for increasing antibiotics and Lasix.
[2021-04-07] MEDS: VANCOmycin 1.5 GM/300 ML 1.5 GM in Premix Bag 1 BAG IV SCH (11:11)
--- NOTE | 2021-04-07 12:38 | CR ---
INDICATION: Dyspnea TECHNIQUE: Chest 1 view. COMPARISON: Chest radiograph 04/04/2021. FINDINGS: Again seen are diffuse bilateral hazy and reticular pulmonary opacities. These have worsened in the upper lungs. No large effusions. Stable cardiomegaly. The bones are unremarkable. IMPRESSION: Worsening diffuse bilateral hazy and reticular pulmonary opacities. Dictated by Ila Wilson MD @ 04/07/2021 12:38:[address] Ila Wilson @ Apr 07 2021 12:38PM
[2021-04-07] MEDS: Azithromycin 250 MG Tab PO SCH (13:51)
[2021-04-07] MEDS ORDERED: Warfarin 2 MG Tab PO SCH (14:00)
[2021-04-07] MEDS: predniSONE 10 MG Tab PO SCH (22:28)
[2021-04-07] MEDS: atorvaSTATin 40 MG Tab PO SCH (22:28)
--- NOTE | 2021-04-07 22:36 | PCM.SN.2 ---
- Free Text/Narrative Note: Patient reports increasing shortness of breath this evening, O2 requirements increased to 15L, Patient is talking with me and does not appear to be in respiratory distress but is breathing faster than this morning. CXR this am shows worsening hazy infiltrates, Azithromycin was added to patient's antibiotic regiment of Vancomycin and Zosyn. ABG this evening showed pCO2 of 47 and pO2 of 47. Will transfer to ICU and start HFNC, switch to BIPAP if work of breathing worsens. We will give another dose of lasix and increase steroid dose to IV solumedrol 60mg q8hrs.
[2021-04-07] MEDS ORDERED: Furosemide 40 MG/4 ML VIAL IVPUSH ONE (22:38)
[2021-04-07 22:56] LABS: POTASSIUM,K 3.3 mmol/L (3.5-5.1)
[2021-04-07] MEDS: methylPREDNISolone Sodium Succinate 40 MG/1 ML SDV IVPUSH SCH (23:15)
[2021-04-08 00:12] LABS: CORONAVIRUS COVID-19 NAA NEGATIVE (NEGATIVE); INFLUENZA A NAA NEGATIVE (NEGATIVE); INFLUENZA B NAA NEGATIVE (NEGATIVE)
[2021-04-08] MEDS: Budesonide 0.5 MG/2 ML Neb Susp INH SCH ×3 (05:42→22:55)
[2021-04-08] MEDS: Piperacillin/Tazobactam 3.375 GM in Sodium Chloride 0.9% 50 ML IV SCH ×3 (06:41→21:05)
[2021-04-08] MEDS: methylPREDNISolone Sodium Succinate 40 MG/1 ML SDV IVPUSH SCH ×3 (06:41→22:54)
[2021-04-08] MEDS: Pantoprazole 40 MG Tab.CR PO SCH (06:46)
[2021-04-08] MEDS: Levothyroxine 150 MCG Tab PO SCH (06:46)
[2021-04-08 07:28] LABS: BLOOD UREA NITROGEN,BUN 20 mg/dL (7.0-18.0); CARBON DIOXIDE,CO2 35.4 mmol/L (21.0-32.0); CHLORIDE,CL 101 mmol/L (98-107); GLUCOSE RANDOM 196 mg/dL (74-106); POTASSIUM,K 3.1 mmol/L (3.5-5.1); SODIUM,NA 141 mmol/L (136-148)
--- NOTE | 2021-04-08 07:39 | PN ---
TH[facility] Physician - Brief Progress [id number]/18/2021 07:23[facility] Vineet Huynh, [place] - TEDDY (LASHAUN) - TEDDY KIRKPATRICKRUDY SAUNDERSKimberDate of Service 04/08/2021 07:23HPI/Event s of Note Chart reviewed and case d/w Dr Manning. On camera, the patient is mildly tachypneic but not i n distress, no use of accessory repsiraotry muscles. Mr Saunders is an 80 year old man admitted 04/04 with cellulitis. On 04/07 hs he developed increased dyspnea and O2 requirements (from 4L to 8L, to 15L Face mask). Placed on HFNC once in ICU. Has been on Lasix, I&O overall even. 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
[2021-04-08] MEDS ORDERED: Potassium Chloride 20 MEQ Tab.ER PO ONE ×2 (07:49→12:00)
--- NOTE | 2021-04-08 07:52 | PCM.PN ---
- General Info Date of Service: 04/08/21 Admission Dx/Problem (Free Text): Admission Diagnosis/Problem Admission Diagnosis/Problem Cellulitis Subjective Update: Appears comfortable sitting in bed heated high flow nasal cannula in place. Denies any chest pain reports shortness of breath has improved since last evening when he had many difficulties. Reports he feels his arm has improved again today. 1 can tell patient is quite frustrated with pulmonary status and his continuous worsening. He was counseled and encouraged that he recently received immunosuppressant medication which can result in worsening bacterial infections that we will take this day by day and continue to monitor his pulmonary status. Patient verbalized understanding. Functional Status: Reports: Pain Controlled, Tolerating Diet, Urinating - Review of Systems General: Reports: Weakness, Fatigue HEENT: Reports: No Symptoms. Denies: Headaches, Sore Throat, Visual Changes Pulmonary: Reports: Shortness of Breath (Improved), Cough, Sputum, Hemoptysis Cardiovascular: Reports: Dyspnea on Exertion. Denies: Chest Pain Gastrointestinal: Reports: No Symptoms. Denies: Abdominal Pain, Nausea, Vomiting Genitourinary: Reports: No Symptoms. Denies: Dysuria, Frequency, Burning Musculoskeletal: Reports: No Symptoms Skin: Reports: Bruising (Improving to left hand) Neurological: Reports: No Symptoms Psychiatric: Reports: No Symptoms - Patient Data Vitals - Most Recent: Last Vital Signs Temp 98 F 04/08/21 01:24 Pulse 100 04/07/21 21:45 Resp 20 04/08/21 07:24 BP 134/71 04/08/21 07:24 Pulse Ox 96 04/08/21 07:24 Weight - Most Recent: 122.47 kg I&O - Last 24 Hours: Intake & Output 04/07/21 04/08/21 04/08/21 22:59 06:59 14:59 Intake Total 1510 350 Output Total 1500 1555 Balance 10 -1205 Lab Results Last 24 Hours: Laboratory Results - last 24 hr 04/07/21 04/07/21 04/07/21 Range/Units 21:24 22:34 22:34 WBC 15.35 H (4.0-11.0) K/uL RBC 4.12 L (4.50-5.90) M/uL Hgb 13.7 (13.0-17.0) g/dL Hct 41.4 (38.0-50.0) % MCV 100.5 H (80.0-98.0) fL MCH 33.3 H (27.0-32.0) pg MCHC 33.1 (31.0-37.0) g/dL RDW Std Deviation 52.2 (28.0-62.0) fl RDW Coeff of Sunny 14 (11.0-15.0) % Plt Count 161 (150-400) K/uL MPV 11.50 (7.40-12.00) fL Neut % (Auto) 82.9 H (48.0-80.0) % Lymph % (Auto) 8.3 L (16.0-40.0) % Pitt % (Auto) 8.2 (0.0-15.0) % Eos % (Auto) 0.5 (0.0-7.0) % Baso % (Auto) 0.1 (0.0-1.5) % Neut # (Auto) 12.7 H (1.4-5.7) K/uL Lymph # (Auto) 1.3 (0.6-2.4) K/uL Pitt # (Auto) 1.3 H (0.0-0.8) K/uL Eos # (Auto) 0.1 (0.0-0.7) K/uL Baso # (Auto) 0.0 (0.0-0.1) K/uL Nucleated RBC % 0.3 /100WBC Nucleated RBCs # 0 K/uL INR ABG pH 7.47 H (7.35-7.45) ABG pCO2 47 H (35-45) mmHG ABG pO2 47 L (80-105) mmHG ABG HCO3 34 H (22-26) mEq/L ABG Total CO2 30.3 H (23-27) mmol/L ABG Base Excess 9.0 H (-2.0-3.0) Sodium 140 (136-148) mmol/L Potassium 3.3 L (3.5-5.1) mmol/L Chloride 99 (98-107) mmol/L Carbon Dioxide 33.0 H (21.0-32.0) mmol/L BUN 26 H (7.0-18.0) mg/dL Creatinine 1.2 (0.8-1.3) mg/dL Est Cr Clr Drug Dosing 60.28 mL/min Estimated GFR (MDRD) 58.3 ml/min Glucose 210 H (74-106) mg/dL Calcium 8.5 (8.5-10.1) mg/dL Total Bilirubin (0.2-1.0) mg/dL AST (15-37) IU/L ALT (14-63) IU/L Alkaline Phosphatase (46-116) U/L B-Natriuretic Peptide (<100) PG/ML Total Protein (6.4-8.2) g/dL Albumin (3.4-5.0) g/dL Globulin (2.6-4.0) g/dL Albumin/Globulin Ratio (0.9-1.6) Influenza Type A RNA (NEGATIVE) Influenza Type B RNA (NEGATIVE) SARS-CoV-2 RNA (MELIDA) (NEGATIVE) 04/07/21 04/07/21 04/08/21 Range/Units 23:25 23:55 05:55 WBC 11.69 H (4.0-11.0) K/uL RBC 3.96 L (4.50-5.90) M/uL Hgb 12.9 L (13.0-17.0) g/dL Hct 39.7 (38.0-50.0) % MCV 100.3 H (80.0-98.0) fL MCH 32.6 H (27.0-32.0) pg MCHC 32.5 (31.0-37.0) g/dL RDW Std Deviation 52.1 (28.0-62.0) fl RDW Coeff of Sunny 14 (11.0-15.0) % Plt Count 175 (150-400) K/uL MPV 11.90 (7.40-12.00) fL Neut % (Auto) 91.6 H (48.0-80.0) % Lymph % (Auto) 5.5 L (16.0-40.0) % Pitt % (Auto) 2.7 (0.0-15.0) % Eos % (Auto) 0.1 (0.0-7.0) % Baso % (Auto) 0.1 (0.0-1.5) % Neut # (Auto) 10.7 H (1.4-5.7) K/uL Lymph # (Auto) 0.6 (0.6-2.4) K/uL Pitt # (Auto) 0.3 (0.0-0.8) K/uL Eos # (Auto) 0.0 (0.0-0.7) K/uL Baso # (Auto) 0.0 (0.0-0.1) K/uL Nucleated RBC % 0.0 /100WBC Nucleated RBCs # 0 K/uL INR ABG pH (7.35-7.45) ABG pCO2 (35-45) mmHG ABG pO2 (80-105) mmHG ABG HCO3 (22-26) mEq/L ABG Total CO2 (23-27) mmol/L ABG Base Excess (-2.0-3.0) Sodium (136-148) mmol/L Potassium (3.5-5.1) mmol/L Chloride (98-107) mmol/L Carbon Dioxide (21.0-32.0) mmol/L BUN (7.0-18.0) mg/dL Creatinine (0.8-1.3) mg/dL Est Cr Clr Drug Dosing mL/min Estimated GFR (MDRD) ml/min Glucose (74-106) mg/dL Calcium (8.5-10.1) mg/dL Total Bilirubin (0.2-1.0) mg/dL AST (15-37) IU/L ALT (14-63) IU/L Alkaline Phosphatase (46-116) U/L B-Natriuretic Peptide 175 H (<100) PG/ML Total Protein (6.4-8.2) g/dL Albumin (3.4-5.0) g/dL Globulin (2.6-4.0) g/dL Albumin/Globulin Ratio (0.9-1.6) Influenza Type A RNA NEGATIVE (NEGATIVE) Influenza Type B RNA NEGATIVE (NEGATIVE) SARS-CoV-2 RNA (MELIDA) NEGATIVE (NEGATIVE) 04/08/21 04/08/21 Range/Units 05:55 05:55 WBC (4.0-11.0) K/uL RBC (4.50-5.90) M/uL Hgb (13.0-17.0) g/dL Hct (38.0-50.0) % MCV (80.0-98.0) fL MCH (27.0-32.0) pg MCHC (31.0-37.0) g/dL RDW Std Deviation (28.0-62.0) fl RDW Coeff of Sunny (11.0-15.0) % Plt Count (150-400) K/uL MPV (7.40-12.00) fL Neut % (Auto) (48.0-80.0) % Lymph % (Auto) (16.0-40.0) % Pitt % (Auto) (0.0-15.0) % Eos % (Auto) (0.0-7.0) % Baso % (Auto) (0.0-1.5) % Neut # (Auto) (1.4-5.7) K/uL Lymph # (Auto) (0.6-2.4) K/uL Pitt # (Auto) (0.0-0.8) K/uL Eos # (Auto) (0.0-0.7) K/uL Baso # (Auto) (0.0-0.1) K/uL Nucleated RBC % /100WBC Nucleated RBCs # K/uL INR 2.85 ABG pH (7.35-7.45) ABG pCO2 (35-45) mmHG ABG pO2 (80-105) mmHG ABG HCO3 (22-26) mEq/L ABG Total CO2 (23-27) mmol/L ABG Base Excess (-2.0-3.0) Sodium 141 (136-148) mmol/L Potassium 3.1 L (3.5-5.1) mmol/L Chloride 101 (98-107) mmol/L Carbon Dioxide 35.4 H (21.0-32.0) mmol/L BUN 20 H (7.0-18.0) mg/dL Creatinine 1.0 (0.8-1.3) mg/dL Est Cr Clr Drug Dosing 72.33 mL/min Estimated GFR (MDRD) > 60.0 ml/min Glucose 196 H (74-106) mg/dL Calcium 7.9 L (8.5-10.1) mg/dL Total Bilirubin 0.9 (0.2-1.0) mg/dL AST 27 (15-37) IU/L ALT 53 (14-63) IU/L Alkaline Phosphatase 68 (46-116) U/L B-Natriuretic Peptide (<100) PG/ML Total Protein 5.7 L (6.4-8.2) g/dL Albumin 2.1 L (3.4-5.0) g/dL Globulin 3.6 (2.6-4.0) g/dL Albumin/Globulin Ratio 0.6 L (0.9-1.6) Influenza Type A RNA (NEGATIVE) Influenza Type B RNA (NEGATIVE) SARS-CoV-2 RNA (MELIDA) (NEGATIVE) Tom Results Last 24 Hours: Microbiology 04/04/21 19:46 Aerobic Blood Culture - Preliminary Blood - Venous - Lab Draw NO GROWTH AFTER 3 DAYS Anaerobic Blood Culture - Preliminary NO GROWTH AFTER 3 DAYS 04/04/21 19:46 Aerobic Blood Culture - Preliminary Blood - Venous NO GROWTH AFTER 3 DAYS Anaerobic Blood Culture - Preliminary NO GROWTH AFTER 3 DAYS Med Orders - Current: Current Medications Albuterol/Ipratropium (Albuterol/Ipratropium 3.0-0.5 Mg/3 Ml Neb Soln) 3 ml NEB Q4HRRT PRN PRN Reason: Shortness of Breath Last Admin: 04/05/21 12:07 Dose: 3 ml Documented by: Aspirin (Aspirin 81 Mg Tab.Chew) 81 mg PO DAILY [facility] Last Admin: 04/07/21 08:30 Dose: 81 mg Documented by: Atorvastatin Calcium (Atorvastatin 40 Mg Tab) 40 mg PO BEDTIME [facility] Last Admin: 04/07/21 22:28 Dose: 40 mg Documented by: Azithromycin (Azithromycin 250 Mg Tab) 500 mg PO Q24H [facility] Last Admin: 04/07/21 13:51 Dose: 500 mg Documented by: Bisacodyl (Bisacodyl 10 Mg Supp) 10 mg RECTAL DAILY PRN PRN Reason: if no BM in 2 days Budesonide (Budesonide 0.5 Mg/2 Ml Neb Susp) 1 mg INH TID [facility] Last Admin: 04/08/21 05:42 Dose: 1 mg Documented by: Docusate Sodium (Docusate Sodium 100 Mg Cap) 100 mg PO DAILY [facility] Last Admin: 04/07/21 08:30 Dose: 100 mg Documented by: Furosemide (Furosemide 40 Mg/4 Ml Vial) 40 mg IVPUSH BIDDIURETIC [facility] Last Admin: 04/07/21 14:22 Dose: 40 mg Documented by: Piperacillin Sod/Tazobactam (Sod 3.375 gm/ Sodium Chloride) 50 mls @ 100 mls/hr IV Q8H [facility] Last Admin: 04/08/21 06:41 Dose: 100 mls/hr Documented by: Vancomycin HCl 1.5 gm/ Premix 300 mls @ 200 mls/hr IV Q24H [facility] Last Admin: 04/07/21 11:11 Dose: 200 mls/hr Documented by: Levothyroxine Sodium (Levothyroxine 150 Mcg Tab) 150 mcg PO ACBREAKFAST [facility] Last Admin: 04/08/21 06:46 Dose: 150 mcg Documented by: Methylprednisolone Sodium Succinate (Methylprednisolone Sodium Succinate 40 Mg/1 Ml Sdv) 60 mg IVPUSH Q8H [facility] Last Admin: 04/08/21 06:41 Dose: 60 mg Documented by: Pantoprazole Sodium (Pantoprazole 40 Mg Tab.Cr) 40 mg PO ACBREAKFAST [facility] Last Admin: 04/08/21 06:46 Dose: 40 mg Documented by: Polyethylene Glycol (Polyethylene Glycol 3350 Powder 17 Gm Packet) 17 gm PO DAILY [facility] Vancomycin HCl (Pharmacy To Dose - Vancomycin) 1 dose .XX ASDIRECTED [facility] Warfarin Sodium (Warfarin Ask Dosing) 1 each PO Q24H [facility] Last Admin: 04/07/21 15:32 Dose: Not Given Documented by: Discontinued Medications Albuterol/Ipratropium (Albuterol/Ipratropium 3.0-0.5 Mg/3 Ml Neb Soln) 3 ml INH TID PRN PRN Reason: Shortness of Breath Aspirin (Aspirin 81 Mg Tab.Chew) 324 mg PO ONETIME ONE Stop: 04/04/21 16:13 Last Admin: 04/04/21 16:26 Dose: 324 mg Documented by: Budesonide (Budesonide 0.5 Mg/2 Ml Neb Susp) Confirm Administered Dose 0.5 mg .ROUTE .STK-MED ONE Stop: 04/07/21 06:24 Last Admin: 04/07/21 15:59 Dose: Not Given Documented by: Enoxaparin Sodium (Enoxaparin 40 Mg/0.4 Ml Syringe) 40 mg SUBCUT Q12HR [facility] Last Admin: 04/07/21 08:32 Dose: 40 mg Documented by: Furosemide (Furosemide 20 Mg/2 Ml Vial) 20 mg IVPUSH ONETIME ONE Stop: 04/04/21 22:18 Last Admin: 04/04/21 23:02 Dose: 20 mg Documented by: Furosemide (Furosemide 40 Mg/4 Ml Vial) 20 mg IVPUSH NOW ONE Stop: 04/05/21 09:07 Last Admin: 04/05/21 09:39 Dose: 20 mg Documented by: Furosemide (Furosemide 40 Mg/4 Ml Vial) 20 mg IVPUSH ONETIME ONE Stop: 04/05/21 17:01 Last Admin: 04/05/21 16:48 Dose: Not Given Documented by: Furosemide (Furosemide 40 Mg/4 Ml Vial) 40 mg IVPUSH DAILY [facility] Last Admin: 04/07/21 08:27 Dose: 40 mg Documented by: Furosemide (Furosemide 20 Mg/2 Ml Vial) Confirm Administered Dose 20 mg .ROUTE .STK-MED ONE Stop: 04/05/21 21:47 Last Admin: 04/05/21 22:10 Dose: Not Given Documented by: Furosemide (Furosemide 40 Mg/4 Ml Vial) 20 mg IVPUSH NOW ONE Stop: 04/05/21 22:00 Last Admin: 04/05/21 22:09 Dose: 20 mg Documented by: Furosemide (Furosemide 40 Mg/4 Ml Vial) 40 mg IVPUSH NOW ONE Stop: 04/07/21 22:39 Last Admin: 04/07/21 22:45 Dose: 40 mg Documented by: Ceftriaxone Sodium/Dextrose 2 (gm/ Premix) 50 mls @ 100 mls/hr IV ONETIME ONE Stop: 04/04/21 17:58 Last Admin: 04/04/21 17:45 Dose: 100 mls/hr Documented by: Piperacillin Sod/Tazobactam (Sod 3.375 gm/ Sodium Chloride) 50 mls @ 100 mls/hr IV ONETIME ONE Stop: 04/04/21 21:32 Last Admin: 04/04/21 21:49 Dose: 100 mls/hr Documented by: Vancomycin HCl 1.5 gm/ Premix 300 mls @ 200 mls/hr IV Q12H [facility] Last Admin: 04/06/21 23:14 Dose: Not Given Documented by: Iopamidol (Iopamidol 755 Mg/Ml 500 Ml Multipack Bottle) 100 ml IVPUSH ONETIME ONE Stop: 04/04/21 18:43 Last Admin: 04/04/21 18:44 Dose: 100 ml Documented by: Potassium Chloride (Potassium Chloride 20 Meq Tab.Er) 40 meq PO ONETIME ONE Stop: 04/06/21 12:31 Last Admin: 04/06/21 12:58 Dose: 40 meq Documented by: Potassium Chloride (Potassium Chloride 20 Meq Tab.Er) 40 meq PO ONETIME ONE Stop: 04/08/21 07:50 Prednisone (Prednisone 10 Mg Tab) 10 mg PO BEDTIME [facility] Last Admin: 04/07/21 22:28 Dose: 10 mg Documented by: Prednisone (Prednisone 20 Mg Tab) 20 mg PO DAILY [facility] Last Admin: 04/07/21 08:31 Dose: 20 mg Documented by: Tamsulosin HCl (Tamsulosin 0.4 Mg Cap.Er) 0.4 mg PO ONETIME ONE Stop: 04/05/21 19:16 Last Admin: 04/05/21 19:53 Dose: 0.4 mg Documented by: Warfarin Sodium (Warfarin 2 Mg Tab) 4 mg PO ONETIME ONE Stop: 04/05/21 14:01 Last Admin: 04/05/21 14:05 Dose: 4 mg Documented by: Warfarin Sodium (Warfarin 1 Mg Tab) 3 mg PO ONETIME ONE Stop: 04/06/21 14:01 Last Admin: 04/06/21 13:35 Dose: 3 mg Documented by: Warfarin Sodium (Warfarin 2 Mg Tab) 2 mg PO 04/07/21@1400 [facility] Stop: 04/07/21 15:00 Last Admin: 04/07/21 14:21 Dose: 2 mg Documented by: - Exam Quality Assessment: Supplemental Oxygen, DVT Prophylaxis General: Alert, Oriented, Cooperative, No Acute Distress Lungs: Decreased Breath Sounds. No: Normal Respiratory Effort (Dyspnea noted with speech and at rest.) Cardiovascular: Regular Rate, Regular Rhythm GI/Abdominal Exam: Normal Bowel Sounds Back Exam: Normal Inspection, Full Range of Motion Extremities: Normal Inspection, Normal Range of Motion, Pedal Edema (Anasarca continued noted 3+ pitting edema to lower extremities and upper arms.) Skin: Ecchymosis (Present to left hand continues to improve daily edema much improved.) Wound/Incisions: No Drainage, Erythema Improving Neurological: No New Focal Deficit Psy/Mental Status: Alert, Normal Affect, Normal Mood - Patient Data Lab Results Last 24 hrs: Laboratory Results - last 24 hr 04/07/21 04/07/21 04/07/21 Range/Units 21:24 22:34 22:34 WBC 15.35 H (4.0-11.0) K/uL RBC 4.12 L (4.50-5.90) M/uL Hgb 13.7 (13.0-17.0) g/dL Hct 41.4 (38.0-50.0) % MCV 100.5 H (80.0-98.0) fL MCH 33.3 H (27.0-32.0) pg MCHC 33.1 (31.0-37.0) g/dL RDW Std Deviation 52.2 (28.0-62.0) fl RDW Coeff of Sunny 14 (11.0-15.0) % Plt Count 161 (150-400) K/uL MPV 11.50 (7.40-12.00) fL Neut % (Auto) 82.9 H (48.0-80.0) % Lymph % (Auto) 8.3 L (16.0-40.0) % Pitt % (Auto) 8.2 (0.0-15.0) % Eos % (Auto) 0.5 (0.0-7.0) % Baso % (Auto) 0.1 (0.0-1.5) % Neut # (Auto) 12.7 H (1.4-5.7) K/uL Lymph # (Auto) 1.3 (0.6-2.4) K/uL Pitt # (Auto) 1.3 H (0.0-0.8) K/uL Eos # (Auto) 0.1 (0.0-0.7) K/uL Baso # (Auto) 0.0 (0.0-0.1) K/uL Nucleated RBC % 0.3 /100WBC Nucleated RBCs # 0 K/uL INR ABG pH 7.47 H (7.35-7.45) ABG pCO2 47 H (35-45) mmHG ABG pO2 47 L (80-105) mmHG ABG HCO3 34 H (22-26) mEq/L ABG Total CO2 30.3 H (23-27) mmol/L ABG Base Excess 9.0 H (-2.0-3.0) Sodium 140 (136-148) mmol/L Potassium 3.3 L (3.5-5.1) mmol/L Chloride 99 (98-107) mmol/L Carbon Dioxide 33.0 H (21.0-32.0) mmol/L BUN 26 H (7.0-18.0) mg/dL Creatinine 1.2 (0.8-1.3) mg/dL Est Cr Clr Drug Dosing 60.28 mL/min Estimated GFR (MDRD) 58.3 ml/min Glucose 210 H (74-106) mg/dL Calcium 8.5 (8.5-10.1) mg/dL Total Bilirubin (0.2-1.0) mg/dL AST (15-37) IU/L ALT (14-63) IU/L Alkaline Phosphatase (46-116) U/L B-Natriuretic Peptide (<100) PG/ML Total Protein (6.4-8.2) g/dL Albumin (3.4-5.0) g/dL Globulin (2.6-4.0) g/dL Albumin/Globulin Ratio (0.9-1.6) Influenza Type A RNA (NEGATIVE) Influenza Type B RNA (NEGATIVE) SARS-CoV-2 RNA (MELIDA) (NEGATIVE) 04/07/21 04/07/21 04/08/21 Range/Units 23:25 23:55 05:55 WBC 11.69 H (4.0-11.0) K/uL RBC 3.96 L (4.50-5.90) M/uL Hgb 12.9 L (13.0-17.0) g/dL Hct 39.7 (38.0-50.0) % MCV 100.3 H (80.0-98.0) fL MCH 32.6 H (27.0-32.0) pg MCHC 32.5 (31.0-37.0) g/dL RDW Std Deviation 52.1 (28.0-62.0) fl RDW Coeff of Sunny 14 (11.0-15.0) % Plt Count 175 (150-400) K/uL MPV 11.90 (7.40-12.00) fL Neut % (Auto) 91.6 H (48.0-80.0) % Lymph % (Auto) 5.5 L (16.0-40.0) % Pitt % (Auto) 2.7 (0.0-15.0) % Eos % (Auto) 0.1 (0.0-7.0) % Baso % (Auto) 0.1 (0.0-1.5) % Neut # (Auto) 10.7 H (1.4-5.7) K/uL Lymph # (Auto) 0.6 (0.6-2.4) K/uL Pitt # (Auto) 0.3 (0.0-0.8) K/uL Eos # (Auto) 0.0 (0.0-0.7) K/uL Baso # (Auto) 0.0 (0.0-0.1) K/uL Nucleated RBC % 0.0 /100WBC Nucleated RBCs # 0 K/uL INR ABG pH (7.35-7.45) ABG pCO2 (35-45) mmHG ABG pO2 (80-105) mmHG ABG HCO3 (22-26) mEq/L ABG Total CO2 (23-27) mmol/L ABG Base Excess (-2.0-3.0) Sodium (136-148) mmol/L Potassium (3.5-5.1) mmol/L Chloride (98-107) mmol/L Carbon Dioxide (21.0-32.0) mmol/L BUN (7.0-18.0) mg/dL Creatinine (0.8-1.3) mg/dL Est Cr Clr Drug Dosing mL/min Estimated GFR (MDRD) ml/min Glucose (74-106) mg/dL Calcium (8.5-10.1) mg/dL Total Bilirubin (0.2-1.0) mg/dL AST (15-37) IU/L ALT (14-63) IU/L Alkaline Phosphatase (46-116) U/L B-Natriuretic Peptide 175 H (<100) PG/ML Total Protein (6.4-8.2) g/dL Albumin (3.4-5.0) g/dL Globulin (2.6-4.0) g/dL Albumin/Globulin Ratio (0.9-1.6) Influenza Type A RNA NEGATIVE (NEGATIVE) Influenza Type B RNA NEGATIVE (NEGATIVE) SARS-CoV-2 RNA (MELIDA) NEGATIVE (NEGATIVE) 04/08/21 04/08/21 Range/Units 05:55 05:55 WBC (4.0-11.0) K/uL RBC (4.50-5.90) M/uL Hgb (13.0-17.0) g/dL Hct (38.0-50.0) % MCV (80.0-98.0) fL MCH (27.0-32.0) pg MCHC (31.0-37.0) g/dL RDW Std Deviation (28.0-62.0) fl RDW Coeff of Sunny (11.0-15.0) % Plt Count (150-400) K/uL MPV (7.40-12.00) fL Neut % (Auto) (48.0-80.0) % Lymph % (Auto) (16.0-40.0) % Pitt % (Auto) (0.0-15.0) % Eos % (Auto) (0.0-7.0) % Baso % (Auto) (0.0-1.5) % Neut # (Auto) (1.4-5.7) K/uL Lymph # (Auto) (0.6-2.4) K/uL Pitt # (Auto) (0.0-0.8) K/uL Eos # (Auto) (0.0-0.7) K/uL Baso # (Auto) (0.0-0.1) K/uL Nucleated RBC % /100WBC Nucleated RBCs # K/uL INR 2.85 ABG pH (7.35-7.45) ABG pCO2 (35-45) mmHG ABG pO2 (80-105) mmHG ABG HCO3 (22-26) mEq/L ABG Total CO2 (23-27) mmol/L ABG Base Excess (-2.0-3.0) Sodium 141 (136-148) mmol/L Potassium 3.1 L (3.5-5.1) mmol/L Chloride 101 (98-107) mmol/L Carbon Dioxide 35.4 H (21.0-32.0) mmol/L BUN 20 H (7.0-18.0) mg/dL Creatinine 1.0 (0.8-1.3) mg/dL Est Cr Clr Drug Dosing 72.33 mL/min Estimated GFR (MDRD) > 60.0 ml/min Glucose 196 H (74-106) mg/dL Calcium 7.9 L (8.5-10.1) mg/dL Total Bilirubin 0.9 (0.2-1.0) mg/dL AST 27 (15-37) IU/L ALT 53 (14-63) IU/L Alkaline Phosphatase 68 (46-116) U/L B-Natriuretic Peptide (<100) PG/ML Total Protein 5.7 L (6.4-8.2) g/dL Albumin 2.1 L (3.4-5.0) g/dL Globulin 3.6 (2.6-4.0) g/dL Albumin/Globulin Ratio 0.6 L (0.9-1.6) Influenza Type A RNA (NEGATIVE) Influenza Type B RNA (NEGATIVE) SARS-CoV-2 RNA (MELIDA) (NEGATIVE) Result Diagrams: 04/08/21 05:55 04/08/21 05:55 Tom Results Last 24 hrs: Microbiology 04/04/21 19:46 Aerobic Blood Culture - Preliminary Blood - Venous - Lab Draw NO GROWTH AFTER 3 DAYS Anaerobic Blood Culture - Preliminary NO GROWTH AFTER 3 DAYS 04/04/21 19:46 Aerobic Blood Culture - Preliminary Blood - Venous NO GROWTH AFTER 3 DAYS Anaerobic Blood Culture - Preliminary NO GROWTH AFTER 3 DAYS Sepsis Event Note - Evaluation Sepsis Screening Result: Severe Sepsis Risk - Focused Exam Vital Signs: Vital Signs Temp Pulse Resp BP Pulse Ox 04/08/21 07:24 20 134/71 96 04/08/21 06:24 21 H 134/71 95 04/08/21 05:24 17 131/65 96 04/08/21 04:24 18 126/72 95 04/08/21 03:24 27 H 145/79 H 90 L 04/08/21 02:24 21 H 146/75 H 93 L 04/08/21 01:24 98 F 13 142/76 H 96 04/08/21 00:24 19 129/76 95 04/07/21 23:41 24 H 139/73 93 L 04/07/21 22:42 97.6 F 34 H 144/82 H 95 04/07/21 21:45 100 26 H 91 L 04/07/21 21:30 97.9 F 98 28 H 131/89 86 L - Problem List & Annotations (1) Cellulitis SNOMED Code(s): 611869000 Code(s): L03.90 - CELLULITIS, UNSPECIFIED Status: Acute Current Visit: Yes Qualifiers: Site of cellulitis: extremity Site of cellulitis of extremity: upper extremity Laterality: left Qualified Code(s): L03.114 - Cellulitis of left upper limb (2) Anasarca SNOMED Code(s): 257944427, 929830889 Code(s): R60.1 - GENERALIZED EDEMA Status: Acute Current Visit: Yes (3) Hypoalbuminemia SNOMED Code(s): 586891335 Code(s): E88.09 - OTH DISORDERS OF PLASMA-PROTEIN METABOLISM, NEC Status: Acute Current Visit: Yes (4) Atypical pneumonia SNOMED Code(s): 470917935 Code(s): J18.9 - PNEUMONIA, UNSPECIFIED ORGANISM Status: Acute Current Visit: No (5) Constipation SNOMED Code(s): 29829174 Code(s): K59.00 - CONSTIPATION, UNSPECIFIED Status: Acute Current Visit: No (6) Chronic respiratory failure with hypoxia SNOMED Code(s): 729316866 Code(s): J96.11 - CHRONIC RESPIRATORY FAILURE WITH HYPOXIA Status: Chronic Current Visit: No (7) History of DVT (deep vein thrombosis) SNOMED Code(s): 450494192 Code(s): Z86.718 - PERSONAL HISTORY OF OTHER VENOUS THROMBOSIS AND EMBOLISM Status: Chronic Current Visit: No (8) Hypothyroidism SNOMED Code(s): 52008800 Code(s): E03.9 - HYPOTHYROIDISM, UNSPECIFIED Status: Chronic Current Visit: No (9) Oxygen dependent SNOMED Code(s): 530796661626 Code(s): Z99.81 - DEPENDENCE ON SUPPLEMENTAL OXYGEN Status: Chronic Current Visit: No (10) Pulmonary fibrosis SNOMED Code(s): 11934962 Code(s): J84.10 - PULMONARY FIBROSIS, UNSPECIFIED Status: Chronic Current Visit: No (11) Pulmonary edema SNOMED Code(s): 62623860 Code(s): J81.1 - CHRONIC PULMONARY EDEMA Status: Acute Current Visit: Yes - Problem List Review Problem List Initiated/Reviewed/Updated: Yes - My Orders Last 24 Hours: My Active Orders 04/07/21 09:18 bisacodyL [Dulcolax] 10 mg RECTAL DAILY PRN 04/07/21 13:15 Azithromycin [Zithromax] 500 mg PO Q24H 04/07/21 14:00 Furosemide [Lasix] 40 mg IVPUSH BIDDIURETIC 04/08/21 09:00 polyethylene glycoL 3350 [MiraLAX] 17 gm PO DAILY - Plan Plan:: 80 y/o M admitted for left arm cellulitis 1. Left arm cellulitis -Continues to improve -Keep arm elevated as much as possible -Continue Zosyn and vancomycin 2. Acute on chronic hypoxic hypercapnic respiratory failure secondary to pulmonary edema, pulmonary fibrosis and possible CAP -Patient had worsening hypoxia and work of breathing overnight. Patient transferred to ICU heated high flow nasal cannula remains on 60 L 90% FiO2. Patient appears much more comfortable and reporting that he is feeling better today. -Chest x-ray reports increasing by lateral reticular and hazy opacities specially in the upper lobes. -Continue azithromycin, Zosyn and vancomycin -Continue Lasix to 40 mg IV TID -Strict I's and O's, daily weight low-sodium diet 2 L fluid restriction -Has been urinating more without assistance. -Replace potassium today with dose this morning we will also give 40 mEq again in the afternoon. -Continue IV steroids every 8 hours 3. Pulmonary fibrosis, chronic hypoxic respiratory failure -Continue oxygen titrate as needed to keep sats greater than 88%. -Encourage I-S -Encourage up to chair and ambulation as tolerated -Recently obtained Rituxan injection to help with history of BOOP and pulmonary fibrosis this will take at least 2 months to work effectively or show signs of working for his pulmonary fibrosis. -DuoNebs as needed 4. Hypothyroidism -Continue levothyroxine 5. History DVT on Coumadin -INR 2.85 today -Continue warfarin daily with pharmacy to help with dosing appreciate their assistance VTE prophylaxis: Warfarin GI prophylaxis: Protonix CODE STATUS full code Dispo: 3 days pending improvement
[2021-04-08] MEDS: Furosemide 40 MG/4 ML VIAL IVPUSH SCH ×3 (08:15→21:05)
[2021-04-08] MEDS: Aspirin 81 MG Tab.Chew PO SCH (08:16)
[2021-04-08] MEDS: Docusate Sodium 100 MG Cap PO SCH (08:16)
[2021-04-08] MEDS: Polyethylene Glycol 3350 Powder 17 GM Packet PO SCH (08:18)
[2021-04-08] MEDS: VANCOmycin 1.5 GM/300 ML 1.5 GM in Premix Bag 1 BAG IV SCH (11:36)
[2021-04-08] MEDS: Azithromycin 250 MG Tab PO SCH (12:25)
[2021-04-08] MEDS: atorvaSTATin 40 MG Tab PO SCH (21:05)
[2021-04-09 05:44] LABS: BLOOD UREA NITROGEN,BUN 23 mg/dL (7.0-18.0); CARBON DIOXIDE,CO2 35.6 mmol/L (21.0-32.0); CHLORIDE,CL 103 mmol/L (98-107); GLUCOSE RANDOM 267 mg/dL (74-106); POTASSIUM,K 3.1 mmol/L (3.5-5.1); SODIUM,NA 143 mmol/L (136-148)
[2021-04-09] MEDS: Furosemide 40 MG/4 ML VIAL IVPUSH SCH ×3 (05:46→21:28)
[2021-04-09] MEDS: Piperacillin/Tazobactam 3.375 GM in Sodium Chloride 0.9% 50 ML IV SCH ×3 (05:46→21:29)
[2021-04-09] MEDS: Budesonide 0.5 MG/2 ML Neb Susp INH SCH ×3 (05:48→21:28)
[2021-04-09] MEDS ORDERED: Dexmedetomidine 200 MCG/2 ML SDV IV SCH (06:15)
--- NOTE | 2021-04-09 06:17 | PN ---
HYUN Physician - Brief Progress [id number]/19/2021 06:11[facility] [place] elianVineet, NADIRA - TEDDY (LASHAUN) - RUDY OROZCODate of Service 04/09/2021 06:11HPI/Event s of Note Discussed with RN: pt with intermittent desat while on high kate.Plan: add BiPAP, add preced ex for pt comfort, check ABG.Interventions Minor-Communication with other healthcare providers and/or family
[2021-04-09] MEDS: methylPREDNISolone Sodium Succinate 40 MG/1 ML SDV IVPUSH SCH ×3 (07:46→23:21)
[2021-04-09] MEDS: Levothyroxine 150 MCG Tab PO SCH (07:54)
[2021-04-09] MEDS: Pantoprazole 40 MG Tab.CR PO SCH (07:55)
--- NOTE | 2021-04-09 07:57 | PCM.PN ---
- General Info Date of Service: 04/09/21 Admission Dx/Problem (Free Text): Admission Diagnosis/Problem Admission Diagnosis/Problem Cellulitis Subjective Update: continues to have dyspnea this morning, discussed at length regarding intubation and Bipap use. He is willing to try Bipap without medication/sedation as he is against this. He also decided to change code status after discussion with Dr Weiss this morning to CPR only, no intubation. He denies chest pain or any pain. eating and drinking well. Continues to have increasing dyspnea with any activity. Plan discussed with daughter Karen at bedside this am. Functional Status: Reports: Pain Controlled, Tolerating Diet, Urinating. Denies: Ambulating - Review of Systems General: Reports: Malaise HEENT: Reports: No Symptoms. Denies: Headaches, Sore Throat, Visual Changes Pulmonary: Reports: Shortness of Breath. Denies: Cough Cardiovascular: Reports: Dyspnea on Exertion, Edema. Denies: Chest Pain Gastrointestinal: Reports: No Symptoms. Denies: Abdominal Pain, Nausea, Vomiting Genitourinary: Reports: No Symptoms. Denies: Dysuria, Frequency, Burning Musculoskeletal: Reports: No Symptoms Skin: Reports: Bruising Neurological: Reports: No Symptoms Psychiatric: Reports: No Symptoms - Patient Data Vitals - Most Recent: Last Vital Signs Temp 97.6 F 04/09/21 06:00 Pulse 100 04/07/21 21:45 Resp 23 H 04/09/21 07:55 BP 125/63 04/09/21 02:20 Pulse Ox 93 L 04/09/21 07:55 Weight - Most Recent: 121.676 kg I&O - Last 24 Hours: Intake & Output 04/08/21 04/09/21 04/09/21 22:59 06:59 14:59 Intake Total 1350 550 Output Total 1600 1000 Balance -250 -450 Lab Results Last 24 Hours: Laboratory Results - last 24 hr 04/09/21 04/09/21 04/09/21 Range/Units 04:58 04:58 04:58 WBC 14.51 H (4.0-11.0) K/uL RBC 3.86 L (4.50-5.90) M/uL Hgb 12.7 L (13.0-17.0) g/dL Hct 39.1 (38.0-50.0) % MCV 101.3 H (80.0-98.0) fL MCH 32.9 H (27.0-32.0) pg MCHC 32.5 (31.0-37.0) g/dL RDW Std Deviation 52.8 (28.0-62.0) fl RDW Coeff of Sunny 14 (11.0-15.0) % Plt Count 199 (150-400) K/uL MPV 11.50 (7.40-12.00) fL Neut % (Auto) 90.0 H (48.0-80.0) % Lymph % (Auto) 4.1 L (16.0-40.0) % Lake % (Auto) 5.8 (0.0-15.0) % Eos % (Auto) 0.0 (0.0-7.0) % Baso % (Auto) 0.1 (0.0-1.5) % Neut # (Auto) 13.1 H (1.4-5.7) K/uL Lymph # (Auto) 0.6 (0.6-2.4) K/uL Lake # (Auto) 0.8 (0.0-0.8) K/uL Eos # (Auto) 0.0 (0.0-0.7) K/uL Baso # (Auto) 0.0 (0.0-0.1) K/uL Nucleated RBC % 0.0 /100WBC Nucleated RBCs # 0 K/uL INR 3.65 ABG pH (7.35-7.45) ABG pCO2 (35-45) mmHG ABG pO2 (80-105) mmHG ABG HCO3 (22-26) mEq/L ABG Total CO2 (23-27) mmol/L ABG Base Excess (-2.0-3.0) Sodium 143 (136-148) mmol/L Potassium 3.1 L (3.5-5.1) mmol/L Chloride 103 (98-107) mmol/L Carbon Dioxide 35.6 H (21.0-32.0) mmol/L BUN 23 H (7.0-18.0) mg/dL Creatinine 1.0 (0.8-1.3) mg/dL Est Cr Clr Drug Dosing 72.33 mL/min Estimated GFR (MDRD) > 60.0 ml/min Glucose 267 H (74-106) mg/dL Calcium 7.9 L (8.5-10.1) mg/dL Magnesium 2.3 (1.8-2.4) mg/dL 04/09/21 Range/Units 06:28 WBC (4.0-11.0) K/uL RBC (4.50-5.90) M/uL Hgb (13.0-17.0) g/dL Hct (38.0-50.0) % MCV (80.0-98.0) fL MCH (27.0-32.0) pg MCHC (31.0-37.0) g/dL RDW Std Deviation (28.0-62.0) fl RDW Coeff of Sunny (11.0-15.0) % Plt Count (150-400) K/uL MPV (7.40-12.00) fL Neut % (Auto) (48.0-80.0) % Lymph % (Auto) (16.0-40.0) % Lake % (Auto) (0.0-15.0) % Eos % (Auto) (0.0-7.0) % Baso % (Auto) (0.0-1.5) % Neut # (Auto) (1.4-5.7) K/uL Lymph # (Auto) (0.6-2.4) K/uL Lake # (Auto) (0.0-0.8) K/uL Eos # (Auto) (0.0-0.7) K/uL Baso # (Auto) (0.0-0.1) K/uL Nucleated RBC % /100WBC Nucleated RBCs # K/uL INR ABG pH 7.49 H (7.35-7.45) ABG pCO2 52 H (35-45) mmHG ABG pO2 44 L (80-105) mmHG ABG HCO3 39 H (22-26) mEq/L ABG Total CO2 35.2 H (23-27) mmol/L ABG Base Excess 13.8 H (-2.0-3.0) Sodium (136-148) mmol/L Potassium (3.5-5.1) mmol/L Chloride (98-107) mmol/L Carbon Dioxide (21.0-32.0) mmol/L BUN (7.0-18.0) mg/dL Creatinine (0.8-1.3) mg/dL Est Cr Clr Drug Dosing mL/min Estimated GFR (MDRD) ml/min Glucose (74-106) mg/dL Calcium (8.5-10.1) mg/dL Magnesium (1.8-2.4) mg/dL Tom Results Last 24 Hours: Microbiology 04/04/21 19:46 Aerobic Blood Culture - Preliminary Blood - Venous - Lab Draw NO GROWTH AFTER 4 DAYS Anaerobic Blood Culture - Preliminary NO GROWTH AFTER 4 DAYS 04/04/21 19:46 Aerobic Blood Culture - Preliminary Blood - Venous NO GROWTH AFTER 4 DAYS Anaerobic Blood Culture - Preliminary NO GROWTH AFTER 4 DAYS Med Orders - Current: Current Medications Albuterol/Ipratropium (Albuterol/Ipratropium 3.0-0.5 Mg/3 Ml Neb Soln) 3 ml NEB Q4HRRT PRN PRN Reason: Shortness of Breath Last Admin: 04/05/21 12:07 Dose: 3 ml Documented by: Aspirin (Aspirin 81 Mg Tab.Chew) 81 mg PO DAILY [facility] Last Admin: 04/08/21 08:16 Dose: 81 mg Documented by: Atorvastatin Calcium (Atorvastatin 40 Mg Tab) 40 mg PO BEDTIME [facility] Last Admin: 04/08/21 21:05 Dose: 40 mg Documented by: Azithromycin (Azithromycin 250 Mg Tab) 500 mg PO Q24H [facility] Last Admin: 04/08/21 12:25 Dose: 500 mg Documented by: Bisacodyl (Bisacodyl 10 Mg Supp) 10 mg RECTAL DAILY PRN PRN Reason: if no BM in 2 days Budesonide (Budesonide 0.5 Mg/2 Ml Neb Susp) 1 mg INH TID [facility] Last Admin: 04/09/21 05:48 Dose: 1 mg Documented by: Docusate Sodium (Docusate Sodium 100 Mg Cap) 100 mg PO DAILY [facility] Last Admin: 04/08/21 08:16 Dose: 100 mg Documented by: Furosemide (Furosemide 40 Mg/4 Ml Vial) 40 mg IVPUSH TID [facility] Last Admin: 04/09/21 05:46 Dose: 40 mg Documented by: Piperacillin Sod/Tazobactam (Sod 3.375 gm/ Sodium Chloride) 50 mls @ 100 mls/hr IV Q8H [facility] Last Admin: 04/09/21 05:46 Dose: 100 mls/hr Documented by: Vancomycin HCl 1.5 gm/ Premix 300 mls @ 200 mls/hr IV Q24H [facility] Last Admin: 04/08/21 11:36 Dose: 200 mls/hr Documented by: Dexmedetomidine/Sodium (Chloride 400 mcg/ Premix) 100 mls @ 6.084 mls/hr IV TITRATE SUJATHA; Protocol Levothyroxine Sodium (Levothyroxine 150 Mcg Tab) 150 mcg PO ACBREAKFAST [facility] Last Admin: 04/09/21 07:54 Dose: 150 mcg Documented by: Methylprednisolone Sodium Succinate (Methylprednisolone Sodium Succinate 40 Mg/1 Ml Sdv) 60 mg IVPUSH Q8H [facility] Last Admin: 04/09/21 07:46 Dose: 60 mg Documented by: Pantoprazole Sodium (Pantoprazole 40 Mg Tab.Cr) 40 mg PO ACBREAKFAST [facility] Last Admin: 04/09/21 07:55 Dose: 40 mg Documented by: Polyethylene Glycol (Polyethylene Glycol 3350 Powder 17 Gm Packet) 17 gm PO DAILY [facility] Last Admin: 04/08/21 08:18 Dose: Not Given Documented by: Potassium Chloride (Potassium Chloride 20 Meq Tab.Er) 40 meq PO TID [facility] Vancomycin HCl (Pharmacy To Dose - Vancomycin) 1 dose .XX ASDIRECTED [facility] Warfarin Sodium (Warfarin Ask Dosing) 1 each PO Q24H [facility] Last Admin: 04/08/21 13:56 Dose: Not Given Documented by: Discontinued Medications Albuterol/Ipratropium (Albuterol/Ipratropium 3.0-0.5 Mg/3 Ml Neb Soln) 3 ml INH TID PRN PRN Reason: Shortness of Breath Aspirin (Aspirin 81 Mg Tab.Chew) 324 mg PO ONETIME ONE Stop: 04/04/21 16:13 Last Admin: 04/04/21 16:26 Dose: 324 mg Documented by: Budesonide (Budesonide 0.5 Mg/2 Ml Neb Susp) Confirm Administered Dose 0.5 mg .ROUTE .STK-MED ONE Stop: 04/07/21 06:24 Last Admin: 04/07/21 15:59 Dose: Not Given Documented by: Enoxaparin Sodium (Enoxaparin 40 Mg/0.4 Ml Syringe) 40 mg SUBCUT Q12HR [facility] Last Admin: 04/07/21 08:32 Dose: 40 mg Documented by: Furosemide (Furosemide 20 Mg/2 Ml Vial) 20 mg IVPUSH ONETIME ONE Stop: 04/04/21 22:18 Last Admin: 04/04/21 23:02 Dose: 20 mg Documented by: Furosemide (Furosemide 40 Mg/4 Ml Vial) 20 mg IVPUSH NOW ONE Stop: 04/05/21 09:07 Last Admin: 04/05/21 09:39 Dose: 20 mg Documented by: Furosemide (Furosemide 40 Mg/4 Ml Vial) 20 mg IVPUSH ONETIME ONE Stop: 04/05/21 17:01 Last Admin: 04/05/21 16:48 Dose: Not Given Documented by: Furosemide (Furosemide 40 Mg/4 Ml Vial) 40 mg IVPUSH DAILY [facility] Last Admin: 04/07/21 08:27 Dose: 40 mg Documented by: Furosemide (Furosemide 20 Mg/2 Ml Vial) Confirm Administered Dose 20 mg .ROUTE .STK-MED ONE Stop: 04/05/21 21:47 Last Admin: 04/05/21 22:10 Dose: Not Given Documented by: Furosemide (Furosemide 40 Mg/4 Ml Vial) 20 mg IVPUSH NOW ONE Stop: 04/05/21 22:00 Last Admin: 04/05/21 22:09 Dose: 20 mg Documented by: Furosemide (Furosemide 40 Mg/4 Ml Vial) 40 mg IVPUSH BIDDIURETIC [facility] Last Admin: 04/08/21 08:15 Dose: 40 mg Documented by: Furosemide (Furosemide 40 Mg/4 Ml Vial) 40 mg IVPUSH NOW ONE Stop: 04/07/21 22:39 Last Admin: 04/07/21 22:45 Dose: 40 mg Documented by: Ceftriaxone Sodium/Dextrose 2 (gm/ Premix) 50 mls @ 100 mls/hr IV ONETIME ONE Stop: 04/04/21 17:58 Last Admin: 04/04/21 17:45 Dose: 100 mls/hr Documented by: Piperacillin Sod/Tazobactam (Sod 3.375 gm/ Sodium Chloride) 50 mls @ 100 mls/hr IV ONETIME ONE Stop: 04/04/21 21:32 Last Admin: 04/04/21 21:49 Dose: 100 mls/hr Documented by: Vancomycin HCl 1.5 gm/ Premix 300 mls @ 200 mls/hr IV Q12H [facility] Last Admin: 04/06/21 23:14 Dose: Not Given Documented by: Iopamidol (Iopamidol 755 Mg/Ml 500 Ml Multipack Bottle) 100 ml IVPUSH ONETIME ONE Stop: 04/04/21 18:43 Last Admin: 04/04/21 18:44 Dose: 100 ml Documented by: Potassium Chloride (Potassium Chloride 20 Meq Tab.Er) 40 meq PO ONETIME ONE Stop: 04/06/21 12:31 Last Admin: 04/06/21 12:58 Dose: 40 meq Documented by: Potassium Chloride (Potassium Chloride 20 Meq Tab.Er) 40 meq PO ONETIME ONE Stop: 04/08/21 07:50 Last Admin: 04/08/21 08:15 Dose: 40 meq Documented by: Potassium Chloride (Potassium Chloride 20 Meq Tab.Er) 40 meq PO ONETIME ONE Stop: 04/08/21 12:01 Last Admin: 04/08/21 12:24 Dose: 40 meq Documented by: Prednisone (Prednisone 10 Mg Tab) 10 mg PO BEDTIME [facility] Last Admin: 04/07/21 22:28 Dose: 10 mg Documented by: Prednisone (Prednisone 20 Mg Tab) 20 mg PO DAILY [facility] Last Admin: 04/07/21 08:31 Dose: 20 mg Documented by: Tamsulosin HCl (Tamsulosin 0.4 Mg Cap.Er) 0.4 mg PO ONETIME ONE Stop: 04/05/21 19:16 Last Admin: 04/05/21 19:53 Dose: 0.4 mg Documented by: Warfarin Sodium (Warfarin 2 Mg Tab) 4 mg PO ONETIME ONE Stop: 04/05/21 14:01 Last Admin: 04/05/21 14:05 Dose: 4 mg Documented by: Warfarin Sodium (Warfarin 1 Mg Tab) 3 mg PO ONETIME ONE Stop: 04/06/21 14:01 Last Admin: 04/06/21 13:35 Dose: 3 mg Documented by: Warfarin Sodium (Warfarin 2 Mg Tab) 2 mg PO 04/07/21@1400 [facility] Stop: 04/07/21 15:00 Last Admin: 04/07/21 14:21 Dose: 2 mg Documented by: Warfarin Sodium (Warfarin 1 Mg Tab) 1 mg PO 04/08/21@1400 [facility] Stop: 04/08/21 16:00 Last Admin: 04/08/21 13:44 Dose: 1 mg Documented by: - Exam Quality Assessment: Supplemental Oxygen, DVT Prophylaxis General: Alert, Oriented, Cooperative, Mild Distress Lungs: Decreased Breath Sounds, Crackles. No: Normal Respiratory Effort (dyspnea) Cardiovascular: Regular Rate, Regular Rhythm GI/Abdominal Exam: Normal Bowel Sounds, Soft, Non-Tender Extremities: Normal Inspection, Normal Range of Motion, Non-Tender, Pedal Edema (anasarca continues to upper and lower extremities) Neurological: No New Focal Deficit Psy/Mental Status: Alert, Normal Affect, Normal Mood - Patient Data Lab Results Last 24 hrs: Laboratory Results - last 24 hr 04/09/21 04/09/21 04/09/21 Range/Units 04:58 04:58 04:58 WBC 14.51 H (4.0-11.0) K/uL RBC 3.86 L (4.50-5.90) M/uL Hgb 12.7 L (13.0-17.0) g/dL Hct 39.1 (38.0-50.0) % MCV 101.3 H (80.0-98.0) fL MCH 32.9 H (27.0-32.0) pg MCHC 32.5 (31.0-37.0) g/dL RDW Std Deviation 52.8 (28.0-62.0) fl RDW Coeff of Sunny 14 (11.0-15.0) % Plt Count 199 (150-400) K/uL MPV 11.50 (7.40-12.00) fL Neut % (Auto) 90.0 H (48.0-80.0) % Lymph % (Auto) 4.1 L (16.0-40.0) % Lake % (Auto) 5.8 (0.0-15.0) % Eos % (Auto) 0.0 (0.0-7.0) % Baso % (Auto) 0.1 (0.0-1.5) % Neut # (Auto) 13.1 H (1.4-5.7) K/uL Lymph # (Auto) 0.6 (0.6-2.4) K/uL Lake # (Auto) 0.8 (0.0-0.8) K/uL Eos # (Auto) 0.0 (0.0-0.7) K/uL Baso # (Auto) 0.0 (0.0-0.1) K/uL Nucleated RBC % 0.0 /100WBC Nucleated RBCs # 0 K/uL INR 3.65 ABG pH (7.35-7.45) ABG pCO2 (35-45) mmHG ABG pO2 (80-105) mmHG ABG HCO3 (22-26) mEq/L ABG Total CO2 (23-27) mmol/L ABG Base Excess (-2.0-3.0) Sodium 143 (136-148) mmol/L Potassium 3.1 L (3.5-5.1) mmol/L Chloride 103 (98-107) mmol/L Carbon Dioxide 35.6 H (21.0-32.0) mmol/L BUN 23 H (7.0-18.0) mg/dL Creatinine 1.0 (0.8-1.3) mg/dL Est Cr Clr Drug Dosing 72.33 mL/min Estimated GFR (MDRD) > 60.0 ml/min Glucose 267 H (74-106) mg/dL Calcium 7.9 L (8.5-10.1) mg/dL Magnesium 2.3 (1.8-2.4) mg/dL 04/09/21 Range/Units 06:28 WBC (4.0-11.0) K/uL RBC (4.50-5.90) M/uL Hgb (13.0-17.0) g/dL Hct (38.0-50.0) % MCV (80.0-98.0) fL MCH (27.0-32.0) pg MCHC (31.0-37.0) g/dL RDW Std Deviation (28.0-62.0) fl RDW Coeff of Sunny (11.0-15.0) % Plt Count (150-400) K/uL MPV (7.40-12.00) fL Neut % (Auto) (48.0-80.0) % Lymph % (Auto) (16.0-40.0) % Lake % (Auto) (0.0-15.0) % Eos % (Auto) (0.0-7.0) % Baso % (Auto) (0.0-1.5) % Neut # (Auto) (1.4-5.7) K/uL Lymph # (Auto) (0.6-2.4) K/uL Lake # (Auto) (0.0-0.8) K/uL Eos # (Auto) (0.0-0.7) K/uL Baso # (Auto) (0.0-0.1) K/uL Nucleated RBC % /100WBC Nucleated RBCs # K/uL INR ABG pH 7.49 H (7.35-7.45) ABG pCO2 52 H (35-45) mmHG ABG pO2 44 L (80-105) mmHG ABG HCO3 39 H (22-26) mEq/L ABG Total CO2 35.2 H (23-27) mmol/L ABG Base Excess 13.8 H (-2.0-3.0) Sodium (136-148) mmol/L Potassium (3.5-5.1) mmol/L Chloride (98-107) mmol/L Carbon Dioxide (21.0-32.0) mmol/L BUN (7.0-18.0) mg/dL Creatinine (0.8-1.3) mg/dL Est Cr Clr Drug Dosing mL/min Estimated GFR (MDRD) ml/min Glucose (74-106) mg/dL Calcium (8.5-10.1) mg/dL Magnesium (1.8-2.4) mg/dL Result Diagrams: 04/09/21 04:58 04/09/21 04:58 Tom Results Last 24 hrs: Microbiology 04/04/21 19:46 Aerobic Blood Culture - Preliminary Blood - Venous - Lab Draw NO GROWTH AFTER 4 DAYS Anaerobic Blood Culture - Preliminary NO GROWTH AFTER 4 DAYS 04/04/21 19:46 Aerobic Blood Culture - Preliminary Blood - Venous NO GROWTH AFTER 4 DAYS Anaerobic Blood Culture - Preliminary NO GROWTH AFTER 4 DAYS Sepsis Event Note - Evaluation Sepsis Screening Result: No Definite Risk - Focused Exam Vital Signs: Vital Signs Temp Resp BP Pulse Ox 04/09/21 07:55 23 H 93 L 04/09/21 07:00 18 90 L 04/09/21 06:00 97.6 F 24 H 87 L 04/09/21 05:00 19 85 L 04/09/21 04:00 12 93 L 04/09/21 03:00 14 92 L 04/09/21 02:20 33 H 125/63 87 L 04/09/21 02:00 97.2 F 42 H 86 L 04/09/21 01:00 19 91 L 04/09/21 00:00 15 91 L 04/08/21 23:00 30 H 135/77 92 L 04/08/21 22:00 24 H 139/71 94 L 04/08/21 21:00 97.8 F 32 H 135/71 89 L 04/08/21 20:00 25 H 136/75 96 - Problem List & Annotations (1) Acute on chronic respiratory failure with hypoxia and hypercapnia SNOMED Code(s): 73037557433760 Code(s): J96.21 - ACUTE AND CHRONIC RESPIRATORY FAILURE WITH HYPOXIA; J96.22 - ACUTE AND CHRONIC RESPIRATORY FAILURE WITH HYPERCAPNIA Status: Acute Current Visit: Yes (2) Cellulitis SNOMED Code(s): 875487441 Code(s): L03.90 - CELLULITIS, UNSPECIFIED Status: Acute Current Visit: Yes Qualifiers: Site of cellulitis: extremity Site of cellulitis of extremity: upper extremity Laterality: left Qualified Code(s): L03.114 - Cellulitis of left upper limb (3) Anasarca SNOMED Code(s): 082306058, 857290910 Code(s): R60.1 - GENERALIZED EDEMA Status: Acute Current Visit: Yes (4) Hypoalbuminemia SNOMED Code(s): 116535134 Code(s): E88.09 - OTH DISORDERS OF PLASMA-PROTEIN METABOLISM, NEC Status: Acute Current Visit: Yes (5) Atypical pneumonia SNOMED Code(s): 402873872 Code(s): J18.9 - PNEUMONIA, UNSPECIFIED ORGANISM Status: Acute Current Visit: No (6) Constipation SNOMED Code(s): 80982633 Code(s): K59.00 - CONSTIPATION, UNSPECIFIED Status: Acute Current Visit: No (7) Chronic respiratory failure with hypoxia SNOMED Code(s): 329047026 Code(s): J96.11 - CHRONIC RESPIRATORY FAILURE WITH HYPOXIA Status: Chronic Current Visit: No (8) History of DVT (deep vein thrombosis) SNOMED Code(s): 836785396 Code(s): Z86.718 - PERSONAL HISTORY OF OTHER VENOUS THROMBOSIS AND EMBOLISM Status: Chronic Current Visit: No (9) Hypothyroidism SNOMED Code(s): 01118862 Code(s): E03.9 - HYPOTHYROIDISM, UNSPECIFIED Status: Chronic Current Visit: No (10) Oxygen dependent SNOMED Code(s): 358584744770 Code(s): Z99.81 - DEPENDENCE ON SUPPLEMENTAL OXYGEN Status: Chronic Current Visit: No (11) Pulmonary fibrosis SNOMED Code(s): 10255325 Code(s): J84.10 - PULMONARY FIBROSIS, UNSPECIFIED Status: Chronic Current Visit: No (12) Pulmonary edema SNOMED Code(s): 97109604 Code(s): J81.1 - CHRONIC PULMONARY EDEMA Status: Acute Current Visit: Yes - Problem List Review Problem List Initiated/Reviewed/Updated: Yes - My Orders Last 24 Hours: My Active Orders 04/08/21 09:00 polyethylene glycoL 3350 [MiraLAX] 17 gm PO DAILY 04/08/21 11:02 Cardiac Monitoring [RC] Q8H Political Aide Discontinue [Cardiac Monitoring Discontinue] [RC] Click to Edit 04/08/21 14:00 Furosemide [Lasix] 40 mg IVPUSH TID 04/09/21 07:56 Potassium Chloride [Klor-Con M20] 40 meq PO TID 04/10/21 05:11 BASIC METABOLIC PANEL,BMP [CHEM] AM CBC WITH AUTO DIFF [HEME] AM INR,PT,PROTHROMBIN TIME [COAG] AM MAGNESIUM [CHEM] AM 04/11/21 05:11 BASIC METABOLIC PANEL,BMP [CHEM] AM CBC WITH AUTO DIFF [HEME] AM INR,PT,PROTHROMBIN TIME [COAG] AM MAGNESIUM [CHEM] AM 04/12/21 05:11 BASIC METABOLIC PANEL,BMP [CHEM] AM CBC WITH AUTO DIFF [HEME] AM INR,PT,PROTHROMBIN TIME [COAG] AM MAGNESIUM [CHEM] AM - Plan Plan:: 80 y/o M admitted for left arm cellulitis 1. Left arm cellulitis -Continues to improve -Keep arm elevated as much as possible -Continue Zosyn and vancomycin 2. Acute on chronic hypoxic hypercapnic respiratory failure secondary to pulmonary edema, pulmonary fibrosis and possible CAP -Worsening hypoxia with hypercapnia noted on ABG this morning. Patient having desaturations on higher settings of heated high flow nasal cannula. BiPAP and Precedex initiated by eICU. Patient very adamant on not wanting to start BiPAP until he was able to talk with his daughter. Daughter and son are at bedside and requested provider presents to discuss BiPAP and sedation. Patient is very against Precedex for sedation and is wanting to try BiPAP without any medication or at least with a very mild medication such as Ativan. Patient is also discussing whether he would want intubation or not and has decided he would not want intubation as he understands that his pulmonary fibrosis and lung function would not allow him to easily come off of mechanical ventilation. Patient willing to try BiPAP at this time will give Ativan 0.5 mg x 1 when BiPAP is initiated may repeat dose x1 if patient unable to tolerate BiPAP at that time. -We also discussed the option of comfort measures with morphine to help with respiratory distress. He listened for a minute or 2 and then cut me off abruptly. Stating he wants to try the BiPAP but at this time is not willing to commit to comfort measures/palliative care. -We will order Ativan 0.5 mg x 1 now when BiPAP is initiated may repeat in 1 hour if patient continues to have anxiety or unable to tolerate BiPAP. -Lung sounds definitely more wet sounding this morning. -Chest x-ray reports increasing by lateral reticular and hazy opacities specially in the upper lobes. -Continue azithromycin, Zosyn and vancomycin -Continue Lasix to 40 mg IV TID -Strict I's and O's, daily weight low-sodium diet 2 L fluid restriction -Replace potassium today with dose this morning we will also give 40 mEq again in the afternoon. -Continue IV steroids every 8 hours 3. Pulmonary fibrosis, chronic hypoxic respiratory failure -Plan as above -Continue oxygen titrate as needed to keep sats greater than 88%. -Encourage I-S -Encourage up to chair and ambulation as tolerated -Recently obtained Rituxan injection to help with history of BOOP and pulmonary fibrosis this will take at least 2 months to work effectively or show signs of working for his pulmonary fibrosis. -DuoNebs as needed 4. Hypothyroidism -Continue levothyroxine 5. History DVT on Coumadin -INR 3.65 today -Hold warfarin today -Appreciate pharmacy's assistance in dosing. VTE prophylaxis: Warfarin GI prophylaxis: Protonix CODE STATUS CPR only, declines intubation if needed. Dispo: 3 days pending improvement
[2021-04-09] MEDS: Docusate Sodium 100 MG Cap PO SCH (08:00)
[2021-04-09] MEDS: Aspirin 81 MG Tab.Chew PO SCH (08:00)
[2021-04-09] MEDS: Polyethylene Glycol 3350 Powder 17 GM Packet PO SCH (08:01)
[2021-04-09] MEDS: Potassium Chloride 20 MEQ Tab.ER PO SCH ×3 (08:08→21:29)
[2021-04-09] MEDS ORDERED: Sodium Chloride 0.65% Nasal Spray 45 ML Bottle NAS PRN (08:28)
[2021-04-09] MEDS ORDERED: LORazepam 2 MG/ML SDV IVPUSH PRN (08:29)
[2021-04-09] MEDS: VANCOmycin 1.5 GM/300 ML 1.5 GM in Premix Bag 1 BAG IV SCH (11:14)
[2021-04-09] MEDS: Azithromycin 250 MG Tab PO SCH (13:13)
[2021-04-09] MEDS: Nystatin Topical Powder 15 GM Bottle TOP SCH ×2 (16:28→23:22)
[2021-04-09] MEDS: atorvaSTATin 40 MG Tab PO SCH (21:29)
[2021-04-10] MEDS: Budesonide 0.5 MG/2 ML Neb Susp INH SCH ×3 (05:55→22:25)
[2021-04-10 06:15] LABS: CARBON DIOXIDE,CO2 37.6 mmol/L (21.0-32.0); POTASSIUM,K 3.8 mmol/L (3.5-5.1)
[2021-04-10] MEDS: Potassium Chloride 20 MEQ Tab.ER PO SCH ×3 (06:36→21:30)
[2021-04-10] MEDS: Pantoprazole 40 MG Tab.CR PO SCH (06:36)
[2021-04-10] MEDS: methylPREDNISolone Sodium Succinate 40 MG/1 ML SDV IVPUSH SCH ×3 (06:37→22:25)
[2021-04-10] MEDS: Levothyroxine 150 MCG Tab PO SCH (06:37)
[2021-04-10] MEDS: Piperacillin/Tazobactam 3.375 GM in Sodium Chloride 0.9% 50 ML IV SCH ×3 (06:37→21:32)
[2021-04-10] MEDS: Furosemide 40 MG/4 ML VIAL IVPUSH SCH ×3 (06:37→21:31)
[2021-04-10] MEDS: Nystatin Topical Powder 15 GM Bottle TOP SCH ×3 (07:44→22:20)
--- NOTE | 2021-04-10 08:05 | PCM.PN ---
- General Info Date of Service: 04/10/21 Admission Dx/Problem (Free Text): Admission Diagnosis/Problem Admission Diagnosis/Problem Cellulitis Subjective Update: Reports that he feels his breathing is somewhat the same as yesterday. Denies any chest pain feels as his left arm is improving. Eating well. Tolerating BiPAP well without any sedation or Ativan to help. Patient reports he has no concerns this morning daughter has not been in for a visit yet Functional Status: Reports: Pain Controlled, Tolerating Diet, Urinating. Denies: Ambulating - Review of Systems General: Reports: Weakness (Generalized) Pulmonary: Reports: Shortness of Breath. Denies: Cough Cardiovascular: Reports: Dyspnea on Exertion. Denies: Chest Pain Gastrointestinal: Reports: No Symptoms. Denies: Abdominal Pain, Nausea, Vomiting Genitourinary: Reports: No Symptoms. Denies: Dysuria, Frequency, Burning Musculoskeletal: Reports: No Symptoms Skin: Reports: Dryness, Bruising Neurological: Reports: No Symptoms Psychiatric: Reports: No Symptoms - Patient Data Vitals - Most Recent: Last Vital Signs Temp 98.1 F 04/10/21 05:05 Pulse 100 04/07/21 21:45 Resp 21 H 04/10/21 06:00 BP 141/67 H 04/10/21 05:05 Pulse Ox 93 L 04/10/21 06:00 Weight - Most Recent: 122.47 kg I&O - Last 24 Hours: Intake & Output 04/09/21 04/10/21 04/10/21 22:59 06:59 14:59 Intake Total 960 900 Output Total 825 1550 Balance 135 -650 Lab Results Last 24 Hours: Laboratory Results - last 24 hr 04/07/21 04/09/21 04/10/21 Range/Units 23:55 10:32 05:44 WBC 16.70 H (4.0-11.0) K/uL RBC 3.80 L (4.50-5.90) M/uL Hgb 12.4 L (13.0-17.0) g/dL Hct 39.3 (38.0-50.0) % MCV 103.4 H (80.0-98.0) fL MCH 32.6 H (27.0-32.0) pg MCHC 31.6 (31.0-37.0) g/dL RDW Std Deviation 54.6 (28.0-62.0) fl RDW Coeff of Sunny 15 (11.0-15.0) % Plt Count 219 (150-400) K/uL MPV 11.10 (7.40-12.00) fL Neut % (Auto) 91.9 H (48.0-80.0) % Lymph % (Auto) 2.8 L (16.0-40.0) % [place] % (Auto) 5.2 (0.0-15.0) % Eos % (Auto) 0.0 (0.0-7.0) % Baso % (Auto) 0.1 (0.0-1.5) % Neut # (Auto) 15.4 H (1.4-5.7) K/uL Lymph # (Auto) 0.5 L (0.6-2.4) K/uL [place] # (Auto) 0.9 H (0.0-0.8) K/uL Eos # (Auto) 0.0 (0.0-0.7) K/uL Baso # (Auto) 0.0 (0.0-0.1) K/uL Nucleated RBC % 0.0 /100WBC Nucleated RBCs # 0 K/uL INR Sodium (136-148) mmol/L Potassium (3.5-5.1) mmol/L Chloride (98-107) mmol/L Carbon Dioxide (21.0-32.0) mmol/L BUN (7.0-18.0) mg/dL Creatinine (0.8-1.3) mg/dL Est Cr Clr Drug Dosing mL/min Estimated GFR (MDRD) ml/min Glucose (74-106) mg/dL Calcium (8.5-10.1) mg/dL Magnesium (1.8-2.4) mg/dL Procalcitonin 0.68 H ng/mL Vancomycin Trough 14.8 H (5.0-10.0) ug/mL 04/10/21 04/10/21 Range/Units 05:44 05:44 WBC (4.0-11.0) K/uL RBC (4.50-5.90) M/uL Hgb (13.0-17.0) g/dL Hct (38.0-50.0) % MCV (80.0-98.0) fL MCH (27.0-32.0) pg MCHC (31.0-37.0) g/dL RDW Std Deviation (28.0-62.0) fl RDW Coeff of Sunny (11.0-15.0) % Plt Count (150-400) K/uL MPV (7.40-12.00) fL Neut % (Auto) (48.0-80.0) % Lymph % (Auto) (16.0-40.0) % [place] % (Auto) (0.0-15.0) % Eos % (Auto) (0.0-7.0) % Baso % (Auto) (0.0-1.5) % Neut # (Auto) (1.4-5.7) K/uL Lymph # (Auto) (0.6-2.4) K/uL [place] # (Auto) (0.0-0.8) K/uL Eos # (Auto) (0.0-0.7) K/uL Baso # (Auto) (0.0-0.1) K/uL Nucleated RBC % /100WBC Nucleated RBCs # K/uL INR 3.77 Sodium 143 (136-148) mmol/L Potassium 3.8 (3.5-5.1) mmol/L Chloride 105 (98-107) mmol/L Carbon Dioxide 37.6 H (21.0-32.0) mmol/L BUN 28 H (7.0-18.0) mg/dL Creatinine 1.3 (0.8-1.3) mg/dL Est Cr Clr Drug Dosing 55.64 mL/min Estimated GFR (MDRD) 53.1 ml/min Glucose 304 H (74-106) mg/dL Calcium 8.2 L (8.5-10.1) mg/dL Magnesium 2.3 (1.8-2.4) mg/dL Procalcitonin ng/mL Vancomycin Trough (5.0-10.0) ug/mL Tom Results Last 24 Hours: Microbiology 04/04/21 19:46 Aerobic Blood Culture - Final Blood - Venous - Lab Draw NO GROWTH AFTER 5 DAYS Anaerobic Blood Culture - Final NO GROWTH AFTER 5 DAYS 04/04/21 19:46 Aerobic Blood Culture - Final Blood - Venous NO GROWTH AFTER 5 DAYS Anaerobic Blood Culture - Final NO GROWTH AFTER 5 DAYS Med Orders - Current: Current Medications Albuterol/Ipratropium (Albuterol/Ipratropium 3.0-0.5 Mg/3 Ml Neb Soln) 3 ml NEB Q4HRRT PRN PRN Reason: Shortness of Breath Last Admin: 04/05/21 12:07 Dose: 3 ml Documented by: Aspirin (Aspirin 81 Mg Tab.Chew) 81 mg PO DAILY [facility] Last Admin: 04/09/21 08:00 Dose: 81 mg Documented by: Atorvastatin Calcium (Atorvastatin 40 Mg Tab) 40 mg PO BEDTIME [facility] Last Admin: 04/09/21 21:29 Dose: 40 mg Documented by: Azithromycin (Azithromycin 250 Mg Tab) 500 mg PO Q24H [facility] Last Admin: 04/09/21 13:13 Dose: 500 mg Documented by: Bisacodyl (Bisacodyl 10 Mg Supp) 10 mg RECTAL DAILY PRN PRN Reason: if no BM in 2 days Budesonide (Budesonide 0.5 Mg/2 Ml Neb Susp) 1 mg INH TID [facility] Last Admin: 04/10/21 05:55 Dose: 1 mg Documented by: Docusate Sodium (Docusate Sodium 100 Mg Cap) 100 mg PO DAILY [facility] Last Admin: 04/09/21 08:00 Dose: 100 mg Documented by: Furosemide (Furosemide 40 Mg/4 Ml Vial) 40 mg IVPUSH TID [facility] Last Admin: 04/10/21 06:37 Dose: 40 mg Documented by: Piperacillin Sod/Tazobactam (Sod 3.375 gm/ Sodium Chloride) 50 mls @ 100 mls/hr IV Q8H [facility] Last Admin: 04/10/21 06:37 Dose: 100 mls/hr Documented by: Vancomycin HCl 1.5 gm/ Premix 300 mls @ 200 mls/hr IV Q24H [facility] Last Admin: 04/09/21 11:14 Dose: 200 mls/hr Documented by: Levothyroxine Sodium (Levothyroxine 150 Mcg Tab) 150 mcg PO ACBREAKFAST [facility] Last Admin: 04/10/21 06:37 Dose: 150 mcg Documented by: Lorazepam (Lorazepam 2 Mg/Ml Sdv) 0.5 mg IVPUSH ONETIME PRN PRN Reason: Bipap Methylprednisolone Sodium Succinate (Methylprednisolone Sodium Succinate 40 Mg/1 Ml Sdv) 60 mg IVPUSH Q8H [facility] Last Admin: 04/10/21 06:37 Dose: 60 mg Documented by: Nystatin (Nystatin Topical Powder 15 Gm Bottle) 0 gm TOP TID [facility] Last Admin: 04/10/21 07:44 Dose: 1 applic Documented by: Pantoprazole Sodium (Pantoprazole 40 Mg Tab.Cr) 40 mg PO ACBREAKFAST [facility] Last Admin: 04/10/21 06:36 Dose: 40 mg Documented by: Polyethylene Glycol (Polyethylene Glycol 3350 Powder 17 Gm Packet) 17 gm PO DAILY [facility] Last Admin: 04/09/21 08:01 Dose: Not Given Documented by: Potassium Chloride (Potassium Chloride 20 Meq Tab.Er) 40 meq PO TID [facility] Last Admin: 04/10/21 06:36 Dose: 40 meq Documented by: Sodium Chloride (Sodium Chloride 0.65% Nasal [place] 45 Ml Bottle) 0 ml CADE QID PRN PRN Reason: nasal congestion Vancomycin HCl (Pharmacy To Dose - Vancomycin) 1 dose .XX ASDIRECTED [facility] Warfarin Sodium (Warfarin Ask Dosing) 1 each PO Q24H [facility] Last Admin: 04/09/21 13:35 Dose: Not Given Documented by: Discontinued Medications Albuterol/Ipratropium (Albuterol/Ipratropium 3.0-0.5 Mg/3 Ml Neb Soln) 3 ml INH TID PRN PRN Reason: Shortness of Breath Aspirin (Aspirin 81 Mg Tab.Chew) 324 mg PO ONETIME ONE Stop: 04/04/21 16:13 Last Admin: 04/04/21 16:26 Dose: 324 mg Documented by: Budesonide (Budesonide 0.5 Mg/2 Ml Neb Susp) Confirm Administered Dose 0.5 mg .ROUTE .STK-MED ONE Stop: 04/07/21 06:24 Last Admin: 04/07/21 15:59 Dose: Not Given Documented by: Enoxaparin Sodium (Enoxaparin 40 Mg/0.4 Ml Syringe) 40 mg SUBCUT Q12HR [facility] Last Admin: 04/07/21 08:32 Dose: 40 mg Documented by: Furosemide (Furosemide 20 Mg/2 Ml Vial) 20 mg IVPUSH ONETIME ONE Stop: 04/04/21 22:18 Last Admin: 04/04/21 23:02 Dose: 20 mg Documented by: Furosemide (Furosemide 40 Mg/4 Ml Vial) 20 mg IVPUSH NOW ONE Stop: 04/05/21 09:07 Last Admin: 04/05/21 09:39 Dose: 20 mg Documented by: Furosemide (Furosemide 40 Mg/4 Ml Vial) 20 mg IVPUSH ONETIME ONE Stop: 04/05/21 17:01 Last Admin: 04/05/21 16:48 Dose: Not Given Documented by: Furosemide (Furosemide 40 Mg/4 Ml Vial) 40 mg IVPUSH DAILY [facility] Last Admin: 04/07/21 08:27 Dose: 40 mg Documented by: Furosemide (Furosemide 20 Mg/2 Ml Vial) Confirm Administered Dose 20 mg .ROUTE .STK-MED ONE Stop: 04/05/21 21:47 Last Admin: 04/05/21 22:10 Dose: Not Given Documented by: Furosemide (Furosemide 40 Mg/4 Ml Vial) 20 mg IVPUSH NOW ONE Stop: 04/05/21 22:00 Last Admin: 04/05/21 22:09 Dose: 20 mg Documented by: Furosemide (Furosemide 40 Mg/4 Ml Vial) 40 mg IVPUSH BIDDIURETIC [facility] Last Admin: 04/08/21 08:15 Dose: 40 mg Documented by: Furosemide (Furosemide 40 Mg/4 Ml Vial) 40 mg IVPUSH NOW ONE Stop: 04/07/21 22:39 Last Admin: 04/07/21 22:45 Dose: 40 mg Documented by: Ceftriaxone Sodium/Dextrose 2 (gm/ Premix) 50 mls @ 100 mls/hr IV ONETIME ONE Stop: 04/04/21 17:58 Last Admin: 04/04/21 17:45 Dose: 100 mls/hr Documented by: Piperacillin Sod/Tazobactam (Sod 3.375 gm/ Sodium Chloride) 50 mls @ 100 mls/hr IV ONETIME ONE Stop: 04/04/21 21:32 Last Admin: 04/04/21 21:49 Dose: 100 mls/hr Documented by: Vancomycin HCl 1.5 gm/ Premix 300 mls @ 200 mls/hr IV Q12H [facility] Last Admin: 04/06/21 23:14 Dose: Not Given Documented by: Dexmedetomidine/Sodium (Chloride 400 mcg/ Premix) 100 mls @ 6.084 mls/hr IV TITRATE [facility]; Protocol Iopamidol (Iopamidol 755 Mg/Ml 500 Ml Multipack Bottle) 100 ml IVPUSH ONETIME ONE Stop: 04/04/21 18:43 Last Admin: 04/04/21 18:44 Dose: 100 ml Documented by: Potassium Chloride (Potassium Chloride 20 Meq Tab.Er) 40 meq PO ONETIME ONE Stop: 04/06/21 12:31 Last Admin: 04/06/21 12:58 Dose: 40 meq Documented by: Potassium Chloride (Potassium Chloride 20 Meq Tab.Er) 40 meq PO ONETIME ONE Stop: 04/08/21 07:50 Last Admin: 04/08/21 08:15 Dose: 40 meq Documented by: Potassium Chloride (Potassium Chloride 20 Meq Tab.Er) 40 meq PO ONETIME ONE Stop: 04/08/21 12:01 Last Admin: 04/08/21 12:24 Dose: 40 meq Documented by: Prednisone (Prednisone 10 Mg Tab) 10 mg PO BEDTIME [facility] Last Admin: 04/07/21 22:28 Dose: 10 mg Documented by: Prednisone (Prednisone 20 Mg Tab) 20 mg PO DAILY [facility] Last Admin: 04/07/21 08:31 Dose: 20 mg Documented by: Tamsulosin HCl (Tamsulosin 0.4 Mg Cap.Er) 0.4 mg PO ONETIME ONE Stop: 04/05/21 19:16 Last Admin: 04/05/21 19:53 Dose: 0.4 mg Documented by: Warfarin Sodium (Warfarin 2 Mg Tab) 4 mg PO ONETIME ONE Stop: 04/05/21 14:01 Last Admin: 04/05/21 14:05 Dose: 4 mg Documented by: Warfarin Sodium (Warfarin 1 Mg Tab) 3 mg PO ONETIME ONE Stop: 04/06/21 14:01 Last Admin: 04/06/21 13:35 Dose: 3 mg Documented by: Warfarin Sodium (Warfarin 2 Mg Tab) 2 mg PO 04/07/21@1400 [facility] Stop: 04/07/21 15:00 Last Admin: 04/07/21 14:21 Dose: 2 mg Documented by: Warfarin Sodium (Warfarin 1 Mg Tab) 1 mg PO 04/08/21@1400 [facility] Stop: 04/08/21 16:00 Last Admin: 04/08/21 13:44 Dose: 1 mg Documented by: - Exam Quality Assessment: Supplemental Oxygen (BiPAP 10/5 90% FiO2), DVT Prophylaxis General: Alert, Oriented, Cooperative, No Acute Distress Lungs: Normal Respiratory Effort (Patient appears comfortable on BiPAP), Decreased Breath Sounds. No: Crackles Cardiovascular: Regular Rate, Regular Rhythm GI/Abdominal Exam: Normal Bowel Sounds, Soft, Non-Tender Extremities: Normal Inspection, Normal Range of Motion, Non-Tender, Pedal Edema (Anasarca continues +1 pitting edema to upper extremities +3 pitting edema noted to lower extremities from hips extending distally) Skin: Ecchymosis (Large bruise noted to left hand continues to improve daily.) Wound/Incisions: Healing Well, No Drainage, Erythema Improving (Erythema to left arm continues to improve daily) Psy/Mental Status: Alert, Normal Affect, Normal Mood - Patient Data Lab Results Last 24 hrs: Laboratory Results - last 24 hr 04/07/21 04/09/21 04/10/21 Range/Units 23:55 10:32 05:44 WBC 16.70 H (4.0-11.0) K/uL RBC 3.80 L (4.50-5.90) M/uL Hgb 12.4 L (13.0-17.0) g/dL Hct 39.3 (38.0-50.0) % MCV 103.4 H (80.0-98.0) fL MCH 32.6 H (27.0-32.0) pg MCHC 31.6 (31.0-37.0) g/dL RDW Std Deviation 54.6 (28.0-62.0) fl RDW Coeff of Sunny 15 (11.0-15.0) % Plt Count 219 (150-400) K/uL MPV 11.10 (7.40-12.00) fL Neut % (Auto) 91.9 H (48.0-80.0) % Lymph % (Auto) 2.8 L (16.0-40.0) % [place] % (Auto) 5.2 (0.0-15.0) % Eos % (Auto) 0.0 (0.0-7.0) % Baso % (Auto) 0.1 (0.0-1.5) % Neut # (Auto) 15.4 H (1.4-5.7) K/uL Lymph # (Auto) 0.5 L (0.6-2.4) K/uL [place] # (Auto) 0.9 H (0.0-0.8) K/uL Eos # (Auto) 0.0 (0.0-0.7) K/uL Baso # (Auto) 0.0 (0.0-0.1) K/uL Nucleated RBC % 0.0 /100WBC Nucleated RBCs # 0 K/uL INR Sodium (136-148) mmol/L Potassium (3.5-5.1) mmol/L Chloride (98-107) mmol/L Carbon Dioxide (21.0-32.0) mmol/L BUN (7.0-18.0) mg/dL Creatinine (0.8-1.3) mg/dL Est Cr Clr Drug Dosing mL/min Estimated GFR (MDRD) ml/min Glucose (74-106) mg/dL Calcium (8.5-10.1) mg/dL Magnesium (1.8-2.4) mg/dL Procalcitonin 0.68 H ng/mL Vancomycin Trough 14.8 H (5.0-10.0) ug/mL 04/10/21 04/10/21 Range/Units 05:44 05:44 WBC (4.0-11.0) K/uL RBC (4.50-5.90) M/uL Hgb (13.0-17.0) g/dL Hct (38.0-50.0) % MCV (80.0-98.0) fL MCH (27.0-32.0) pg MCHC (31.0-37.0) g/dL RDW Std Deviation (28.0-62.0) fl RDW Coeff of Sunny (11.0-15.0) % Plt Count (150-400) K/uL MPV (7.40-12.00) fL Neut % (Auto) (48.0-80.0) % Lymph % (Auto) (16.0-40.0) % [place] % (Auto) (0.0-15.0) % Eos % (Auto) (0.0-7.0) % Baso % (Auto) (0.0-1.5) % Neut # (Auto) (1.4-5.7) K/uL Lymph # (Auto) (0.6-2.4) K/uL [place] # (Auto) (0.0-0.8) K/uL Eos # (Auto) (0.0-0.7) K/uL Baso # (Auto) (0.0-0.1) K/uL Nucleated RBC % /100WBC Nucleated RBCs # K/uL INR 3.77 Sodium 143 (136-148) mmol/L Potassium 3.8 (3.5-5.1) mmol/L Chloride 105 (98-107) mmol/L Carbon Dioxide 37.6 H (21.0-32.0) mmol/L BUN 28 H (7.0-18.0) mg/dL Creatinine 1.3 (0.8-1.3) mg/dL Est Cr Clr Drug Dosing 55.64 mL/min Estimated GFR (MDRD) 53.1 ml/min Glucose 304 H (74-106) mg/dL Calcium 8.2 L (8.5-10.1) mg/dL Magnesium 2.3 (1.8-2.4) mg/dL Procalcitonin ng/mL Vancomycin Trough (5.0-10.0) ug/mL Result Diagrams: 04/10/21 05:44 04/10/21 05:44 Tom Results Last 24 hrs: Microbiology 04/04/21 19:46 Aerobic Blood Culture - Final Blood - Venous - Lab Draw NO GROWTH AFTER 5 DAYS Anaerobic Blood Culture - Final NO GROWTH AFTER 5 DAYS 04/04/21 19:46 Aerobic Blood Culture - Final Blood - Venous NO GROWTH AFTER 5 DAYS Anaerobic Blood Culture - Final NO GROWTH AFTER 5 DAYS Sepsis Event Note - Evaluation Sepsis Screening Result: Severe Sepsis Risk - Focused Exam Vital Signs: Vital Signs Temp Resp BP Pulse Ox 04/10/21 06:00 21 H 93 L 04/10/21 05:05 98.1 F 27 H 141/67 H 94 L 04/10/21 04:00 23 H 95 04/10/21 03:00 13 91 L 04/10/21 02:00 24 H 94 L 04/10/21 01:16 97.4 F 24 H 145/71 H 91 L 04/10/21 00:00 22 H 92 L 04/09/21 23:00 18 89 L 04/09/21 22:00 21 H 91 L 04/09/21 21:00 97.2 F 27 H 133/83 89 L - Problem List & Annotations (1) Acute on chronic respiratory failure with hypoxia and hypercapnia SNOMED Code(s): 75373064837943 Code(s): J96.21 - ACUTE AND CHRONIC RESPIRATORY FAILURE WITH HYPOXIA; J96.22 - ACUTE AND CHRONIC RESPIRATORY FAILURE WITH HYPERCAPNIA Status: Acute Current Visit: Yes (2) Cellulitis SNOMED Code(s): 330512229 Code(s): L03.90 - CELLULITIS, UNSPECIFIED Status: Acute Current Visit: Yes Qualifiers: Site of cellulitis: extremity Site of cellulitis of extremity: upper extremity Laterality: left Qualified Code(s): L03.114 - Cellulitis of left upper limb (3) Anasarca SNOMED Code(s): 823509868, 498752155 Code(s): R60.1 - GENERALIZED EDEMA Status: Acute Current Visit: Yes (4) Hypoalbuminemia SNOMED Code(s): 025247952 Code(s): E88.09 - OTH DISORDERS OF PLASMA-PROTEIN METABOLISM, NEC Status: Acute Current Visit: Yes (5) Atypical pneumonia SNOMED Code(s): 691887961 Code(s): J18.9 - PNEUMONIA, UNSPECIFIED ORGANISM Status: Acute Current Visit: No (6) Constipation SNOMED Code(s): 80592068 Code(s): K59.00 - CONSTIPATION, UNSPECIFIED Status: Acute Current Visit: No (7) Chronic respiratory failure with hypoxia SNOMED Code(s): 859865228 Code(s): J96.11 - CHRONIC RESPIRATORY FAILURE WITH HYPOXIA Status: Chronic Current Visit: No (8) History of DVT (deep vein thrombosis) SNOMED Code(s): 010659904 Code(s): Z86.718 - PERSONAL HISTORY OF OTHER VENOUS THROMBOSIS AND EMBOLISM Status: Chronic Current Visit: No (9) Hypothyroidism SNOMED Code(s): 78082733 Code(s): E03.9 - HYPOTHYROIDISM, UNSPECIFIED Status: Chronic Current Visit: No (10) Oxygen dependent SNOMED Code(s): 676762370501 Code(s): Z99.81 - DEPENDENCE ON SUPPLEMENTAL OXYGEN Status: Chronic Current Visit: No (11) Pulmonary fibrosis SNOMED Code(s): 71711722 Code(s): J84.10 - PULMONARY FIBROSIS, UNSPECIFIED Status: Chronic Current Visit: No (12) Pulmonary edema SNOMED Code(s): 49979688 Code(s): J81.1 - CHRONIC PULMONARY EDEMA Status: Acute Current Visit: Yes - Problem List Review Problem List Initiated/Reviewed/Updated: Yes - My Orders Last 24 Hours: My Active Orders 04/09/21 07:56 Potassium Chloride [Klor-Con M20] 40 meq PO TID 04/09/21 08:28 Sodium Chloride 0.65% [Garza Nasal [place]] See Dose Instructions CADE QID PRN 04/09/21 08:29 LORazepam [Ativan] 0.5 mg IVPUSH ONETIME PRN 04/09/21 09:44 Resuscitation Status Routine 04/09/21 15:45 Nystatin [Nystop] See Dose Instructions TOP TID 04/09/21 Dinner Regular Diet [DIET] 04/11/21 05:11 BASIC METABOLIC PANEL,BMP [CHEM] AM CBC WITH AUTO DIFF [HEME] AM INR,PT,PROTHROMBIN TIME [COAG] AM MAGNESIUM [CHEM] AM 04/12/21 05:11 BASIC METABOLIC PANEL,BMP [CHEM] AM CBC WITH AUTO DIFF [HEME] AM INR,PT,PROTHROMBIN TIME [COAG] AM MAGNESIUM [CHEM] AM - Plan Plan:: 80 y/o M admitted for left arm cellulitis 1. Left arm cellulitis -Continues to improve -Keep arm elevated as much as possible -Continue Zosyn and vancomycin, day 6 2. Acute on chronic hypoxic hypercapnic respiratory failure secondary to pulmonary edema, pulmonary fibrosis and possible CAP -Patient remained stable on BiPAP. 10/5 90% FiO2 at this time. Patient has not needed any medication for sedation or decreasing anxiety. Patient appears very comfortable on BiPAP. -Continue BiPAP today intermittently allowing heated high flow nasal cannula with meals. Continue to monitor respiratory status. -Lung sounds less wet this morning more diminished bibasilar -Continue azithromycin, Zosyn and vancomycin -Only net negatice 300 ml in 24 hours, increase Lasix to 60 mg IV TID -Continue IV steroids 60 mg every 8 hours 3. Pulmonary fibrosis, chronic hypoxic respiratory failure -Plan as above -Continue oxygen titrate as needed to keep sats greater than 88%. -Encourage I-S -Encourage up to chair and ambulation as tolerated -DuoNebs as needed 4. Hypothyroidism -Continue levothyroxine 5. History DVT on Coumadin -INR 3.77 today -Hold warfarin today -Appreciate pharmacy's assistance in dosing. VTE prophylaxis: Warfarin GI prophylaxis: Protonix CODE STATUS CPR only, declines intubation if needed. Dispo: 3 days pending improvement
[2021-04-10] MEDS: Docusate Sodium 100 MG Cap PO SCH (08:58)
[2021-04-10] MEDS: Polyethylene Glycol 3350 Powder 17 GM Packet PO SCH (08:58)
[2021-04-10] MEDS: Aspirin 81 MG Tab.Chew PO SCH (08:58)
[2021-04-10] MEDS: VANCOmycin 1.5 GM/300 ML 1.5 GM in Premix Bag 1 BAG IV SCH (11:11)
--- NOTE | 2021-04-10 13:16 | PCM.SN.2 ---
- Free Text/Narrative Note: Daughter Peggy at bedside. We discussed goals for the next couple days to evaluate possibility of improvement without intubation. We did increase Lasix as was allowing him to be on BiPAP and high flow nasal cannula as needed. Patient and daughter have made it very clear he is not wanting any intubation and is okay with that. They are hoping to see what the next couple days bring to show either improvement or no improvement to help decide with goals of care. They would like hospice consult to discuss options and care goals and treatment options with them. Hospice was consulted and and is aware of their needs for further education.
[2021-04-10] MEDS: Azithromycin 250 MG Tab PO SCH (14:30)
[2021-04-10] MEDS: atorvaSTATin 40 MG Tab PO SCH (20:12)
[2021-04-11] MEDS: Budesonide 0.5 MG/2 ML Neb Susp INH SCH ×3 (05:56→22:17)
[2021-04-11] MEDS: Furosemide 40 MG/4 ML VIAL IVPUSH SCH (06:18)
[2021-04-11] MEDS: Potassium Chloride 20 MEQ Tab.ER PO SCH ×3 (06:18→22:12)
[2021-04-11] MEDS: Piperacillin/Tazobactam 3.375 GM in Sodium Chloride 0.9% 50 ML IV SCH ×3 (06:19→22:16)
[2021-04-11] MEDS: methylPREDNISolone Sodium Succinate 40 MG/1 ML SDV IVPUSH SCH ×3 (06:20→22:16)
[2021-04-11] MEDS: Levothyroxine 150 MCG Tab PO SCH (06:30)
[2021-04-11] MEDS: Pantoprazole 40 MG Tab.CR PO SCH (06:30)
[2021-04-11 06:31] LABS: CARBON DIOXIDE,CO2 40.2 mmol/L (21.0-32.0); POTASSIUM,K 4.1 mmol/L (3.5-5.1)
--- NOTE | 2021-04-11 08:25 | PCM.PN ---
- General Info Date of Service: 04/11/21 Admission Dx/Problem (Free Text): Admission Diagnosis/Problem Admission Diagnosis/Problem Cellulitis Subjective Update: Patient resting this morning. Did wake up slightly as a high but reported he wanted to continue to sleep. Denies any pain breathing feels about the same no significant changes. Appears comfortable on BiPAP and resting. - Review of Systems General: Reports: Malaise HEENT: Reports: No Symptoms. Denies: Headaches, Sore Throat, Visual Changes Pulmonary: Reports: Shortness of Breath Cardiovascular: Reports: Dyspnea on Exertion, Edema. Denies: Chest Pain, Palpitations Gastrointestinal: Reports: No Symptoms. Denies: Abdominal Pain, Constipation, Nausea, Vomiting Genitourinary: Reports: No Symptoms. Denies: Dysuria, Frequency, Burning Musculoskeletal: Reports: No Symptoms Skin: Reports: No Symptoms Neurological: Reports: No Symptoms Psychiatric: Reports: No Symptoms - Patient Data Vitals - Most Recent: Last Vital Signs Temp 96.8 F L 04/11/21 04:00 Pulse 100 04/07/21 21:45 Resp 18 04/11/21 07:00 BP 120/69 04/11/21 04:00 Pulse Ox 93 L 04/11/21 07:00 Weight - Most Recent: 120.519 kg I&O - Last 24 Hours: Intake & Output 04/10/21 04/11/21 04/11/21 22:59 06:59 14:59 Intake Total 1250 710 Output Total 1900 1500 Balance -650 -790 Lab Results Last 24 Hours: Laboratory Results - last 24 hr 04/11/21 04/11/21 04/11/21 Range/Units 05:58 05:58 05:58 WBC 16.47 H (4.0-11.0) K/uL RBC 3.94 L (4.50-5.90) M/uL Hgb 12.8 L (13.0-17.0) g/dL Hct 41.1 (38.0-50.0) % MCV 104.3 H (80.0-98.0) fL MCH 32.5 H (27.0-32.0) pg MCHC 31.1 (31.0-37.0) g/dL RDW Std Deviation 53.9 (28.0-62.0) fl RDW Coeff of Sunny 14 (11.0-15.0) % Plt Count 228 (150-400) K/uL MPV 11.60 (7.40-12.00) fL Neut % (Auto) 92.5 H (48.0-80.0) % Lymph % (Auto) 3.2 L (16.0-40.0) % [place] % (Auto) 4.2 (0.0-15.0) % Eos % (Auto) 0.0 (0.0-7.0) % Baso % (Auto) 0.1 (0.0-1.5) % Neut # (Auto) 15.2 H (1.4-5.7) K/uL Lymph # (Auto) 0.5 L (0.6-2.4) K/uL [place] # (Auto) 0.7 (0.0-0.8) K/uL Eos # (Auto) 0.0 (0.0-0.7) K/uL Baso # (Auto) 0.0 (0.0-0.1) K/uL Nucleated RBC % 0.0 /100WBC Nucleated RBCs # 0 K/uL INR 3.58 Sodium 144 (136-148) mmol/L Potassium 4.1 (3.5-5.1) mmol/L Chloride 105 (98-107) mmol/L Carbon Dioxide 40.2 H (21.0-32.0) mmol/L BUN 31 H (7.0-18.0) mg/dL Creatinine 1.2 (0.8-1.3) mg/dL Est Cr Clr Drug Dosing 60.28 mL/min Estimated GFR (MDRD) 58.3 ml/min Glucose 343 H (74-106) mg/dL Calcium 8.1 L (8.5-10.1) mg/dL Magnesium 2.3 (1.8-2.4) mg/dL Med Orders - Current: Current Medications Albuterol/Ipratropium (Albuterol/Ipratropium 3.0-0.5 Mg/3 Ml Neb Soln) 3 ml NEB Q4HRRT PRN PRN Reason: Shortness of Breath Last Admin: 04/05/21 12:07 Dose: 3 ml Documented by: Aspirin (Aspirin 81 Mg Tab.Chew) 81 mg PO DAILY SUJATHA Last Admin: 04/10/21 08:58 Dose: 81 mg Documented by: Atorvastatin Calcium (Atorvastatin 40 Mg Tab) 40 mg PO BEDTIME [facility] Last Admin: 04/10/21 20:12 Dose: 40 mg Documented by: Azithromycin (Azithromycin 250 Mg Tab) 500 mg PO Q24H [facility] Last Admin: 04/10/21 14:30 Dose: 500 mg Documented by: Bisacodyl (Bisacodyl 10 Mg Supp) 10 mg RECTAL DAILY PRN PRN Reason: if no BM in 2 days Budesonide (Budesonide 0.5 Mg/2 Ml Neb Susp) 1 mg INH TID [facility] Last Admin: 04/11/21 05:56 Dose: 1 mg Documented by: Docusate Sodium (Docusate Sodium 100 Mg Cap) 100 mg PO DAILY [facility] Last Admin: 04/10/21 08:58 Dose: 100 mg Documented by: Furosemide (Furosemide 100 Mg/10 Ml Sdv) 60 mg IVPUSH TID [facility] Piperacillin Sod/Tazobactam (Sod 3.375 gm/ Sodium Chloride) 50 mls @ 100 mls/hr IV Q8H [facility] Last Admin: 04/11/21 06:19 Dose: 100 mls/hr Documented by: Vancomycin HCl 1.5 gm/ Premix 300 mls @ 200 mls/hr IV Q24H [facility] Last Admin: 04/10/21 11:11 Dose: 200 mls/hr Documented by: Levothyroxine Sodium (Levothyroxine 150 Mcg Tab) 150 mcg PO ACBREAKFAST [facility] Last Admin: 04/11/21 06:30 Dose: 150 mcg Documented by: Lorazepam (Lorazepam 2 Mg/Ml Sdv) 0.5 mg IVPUSH ONETIME PRN PRN Reason: Bipap Methylprednisolone Sodium Succinate (Methylprednisolone Sodium Succinate 40 Mg/1 Ml Sdv) 60 mg IVPUSH Q8H [facility] Last Admin: 04/11/21 06:20 Dose: 60 mg Documented by: Nystatin (Nystatin Topical Powder 15 Gm Bottle) 0 gm TOP TID [facility] Last Admin: 04/10/21 22:20 Dose: 1 applic Documented by: Pantoprazole Sodium (Pantoprazole 40 Mg Tab.Cr) 40 mg PO ACBREAKFAST [facility] Last Admin: 04/11/21 06:30 Dose: 40 mg Documented by: Polyethylene Glycol (Polyethylene Glycol 3350 Powder 17 Gm Packet) 17 gm PO DAILY [facility] Last Admin: 04/10/21 08:58 Dose: 17 gm Documented by: Potassium Chloride (Potassium Chloride 20 Meq Tab.Er) 40 meq PO TID [facility] Last Admin: 04/11/21 06:18 Dose: 40 meq Documented by: Sodium Chloride (Sodium Chloride 0.65% Nasal [place] 45 Ml Bottle) 0 ml CADE QID PRN PRN Reason: nasal congestion Vancomycin HCl (Pharmacy To Dose - Vancomycin) 1 dose .XX ASDIRECTED [facility] Warfarin Sodium (Warfarin Ask Dosing) 1 each PO Q24H [facility] Last Admin: 04/10/21 14:32 Dose: Not Given Documented by: Discontinued Medications Albuterol/Ipratropium (Albuterol/Ipratropium 3.0-0.5 Mg/3 Ml Neb Soln) 3 ml INH TID PRN PRN Reason: Shortness of Breath Aspirin (Aspirin 81 Mg Tab.Chew) 324 mg PO ONETIME ONE Stop: 04/04/21 16:13 Last Admin: 04/04/21 16:26 Dose: 324 mg Documented by: Budesonide (Budesonide 0.5 Mg/2 Ml Neb Susp) Confirm Administered Dose 0.5 mg .ROUTE .STK-MED ONE Stop: 04/07/21 06:24 Last Admin: 04/07/21 15:59 Dose: Not Given Documented by: Enoxaparin Sodium (Enoxaparin 40 Mg/0.4 Ml Syringe) 40 mg SUBCUT Q12HR [facility] Last Admin: 04/07/21 08:32 Dose: 40 mg Documented by: Furosemide (Furosemide 20 Mg/2 Ml Vial) 20 mg IVPUSH ONETIME ONE Stop: 04/04/21 22:18 Last Admin: 04/04/21 23:02 Dose: 20 mg Documented by: Furosemide (Furosemide 40 Mg/4 Ml Vial) 20 mg IVPUSH NOW ONE Stop: 04/05/21 09:07 Last Admin: 04/05/21 09:39 Dose: 20 mg Documented by: Furosemide (Furosemide 40 Mg/4 Ml Vial) 20 mg IVPUSH ONETIME ONE Stop: 04/05/21 17:01 Last Admin: 04/05/21 16:48 Dose: Not Given Documented by: Furosemide (Furosemide 40 Mg/4 Ml Vial) 40 mg IVPUSH DAILY [facility] Last Admin: 04/07/21 08:27 Dose: 40 mg Documented by: Furosemide (Furosemide 20 Mg/2 Ml Vial) Confirm Administered Dose 20 mg .ROUTE .STK-MED ONE Stop: 04/05/21 21:47 Last Admin: 04/05/21 22:10 Dose: Not Given Documented by: Furosemide (Furosemide 40 Mg/4 Ml Vial) 20 mg IVPUSH NOW ONE Stop: 04/05/21 22:00 Last Admin: 04/05/21 22:09 Dose: 20 mg Documented by: Furosemide (Furosemide 40 Mg/4 Ml Vial) 40 mg IVPUSH BIDDIURETIC [facility] Last Admin: 04/08/21 08:15 Dose: 40 mg Documented by: Furosemide (Furosemide 40 Mg/4 Ml Vial) 40 mg IVPUSH NOW ONE Stop: 04/07/21 22:39 Last Admin: 04/07/21 22:45 Dose: 40 mg Documented by: Furosemide (Furosemide 40 Mg/4 Ml Vial) 40 mg IVPUSH TID [facility] Last Admin: 04/10/21 06:37 Dose: 40 mg Documented by: Furosemide (Furosemide 40 Mg/4 Ml Vial) 60 mg IVPUSH TID [facility] Last Admin: 04/11/21 06:18 Dose: 60 mg Documented by: Ceftriaxone Sodium/Dextrose 2 (gm/ Premix) 50 mls @ 100 mls/hr IV ONETIME ONE Stop: 04/04/21 17:58 Last Admin: 04/04/21 17:45 Dose: 100 mls/hr Documented by: Piperacillin Sod/Tazobactam (Sod 3.375 gm/ Sodium Chloride) 50 mls @ 100 mls/hr IV ONETIME ONE Stop: 04/04/21 21:32 Last Admin: 04/04/21 21:49 Dose: 100 mls/hr Documented by: Vancomycin HCl 1.5 gm/ Premix 300 mls @ 200 mls/hr IV Q12H [facility] Last Admin: 04/06/21 23:14 Dose: Not Given Documented by: Dexmedetomidine/Sodium (Chloride 400 mcg/ Premix) 100 mls @ 6.084 mls/hr IV TITRATE [facility]; Protocol Iopamidol (Iopamidol 755 Mg/Ml 500 Ml Multipack Bottle) 100 ml IVPUSH ONETIME ONE Stop: 04/04/21 18:43 Last Admin: 04/04/21 18:44 Dose: 100 ml Documented by: Potassium Chloride (Potassium Chloride 20 Meq Tab.Er) 40 meq PO ONETIME ONE Stop: 04/06/21 12:31 Last Admin: 04/06/21 12:58 Dose: 40 meq Documented by: Potassium Chloride (Potassium Chloride 20 Meq Tab.Er) 40 meq PO ONETIME ONE Stop: 04/08/21 07:50 Last Admin: 04/08/21 08:15 Dose: 40 meq Documented by: Potassium Chloride (Potassium Chloride 20 Meq Tab.Er) 40 meq PO ONETIME ONE Stop: 04/08/21 12:01 Last Admin: 04/08/21 12:24 Dose: 40 meq Documented by: Prednisone (Prednisone 10 Mg Tab) 10 mg PO BEDTIME [facility] Last Admin: 04/07/21 22:28 Dose: 10 mg Documented by: Prednisone (Prednisone 20 Mg Tab) 20 mg PO DAILY [facility] Last Admin: 04/07/21 08:31 Dose: 20 mg Documented by: Tamsulosin HCl (Tamsulosin 0.4 Mg Cap.Er) 0.4 mg PO ONETIME ONE Stop: 04/05/21 19:16 Last Admin: 04/05/21 19:53 Dose: 0.4 mg Documented by: Warfarin Sodium (Warfarin 2 Mg Tab) 4 mg PO ONETIME ONE Stop: 04/05/21 14:01 Last Admin: 04/05/21 14:05 Dose: 4 mg Documented by: Warfarin Sodium (Warfarin 1 Mg Tab) 3 mg PO ONETIME ONE Stop: 04/06/21 14:01 Last Admin: 04/06/21 13:35 Dose: 3 mg Documented by: Warfarin Sodium (Warfarin 2 Mg Tab) 2 mg PO 04/07/21@1400 [facility] Stop: 04/07/21 15:00 Last Admin: 04/07/21 14:21 Dose: 2 mg Documented by: Warfarin Sodium (Warfarin 1 Mg Tab) 1 mg PO 04/08/21@1400 [facility] Stop: 04/08/21 16:00 Last Admin: 04/08/21 13:44 Dose: 1 mg Documented by: - Exam Quality Assessment: Supplemental Oxygen (Currently on BiPAP 75% FiO2 10/5) General: Alert, Oriented, Cooperative, No Acute Distress Lungs: Normal Respiratory Effort (While resting), Decreased Breath Sounds (Bibasilar with crackles), Crackles. No: Wheezing Cardiovascular: Regular Rate, Regular Rhythm GI/Abdominal Exam: Normal Bowel Sounds, Soft, Non-Tender Extremities: Normal Inspection, Normal Range of Motion, Non-Tender, Pedal Edema (Anasarca continues. Continues to have +1 pitting edema bilateral upper extremities 10+3 pitting edema to lower extremities extending from hips distally to feet. No significant change) Skin: Warm, Dry Wound/Incisions: Erythema (Erythema noted to right forearm no increased warmth or edema. No increased pain. Erythema to left arm continues to improve again anasarca continues bilaterally.) Neurological: No New Focal Deficit Psy/Mental Status: Alert, Normal Affect, Normal Mood - Patient Data Lab Results Last 24 hrs: Laboratory Results - last 24 hr 04/11/21 04/11/21 04/11/21 Range/Units 05:58 05:58 05:58 WBC 16.47 H (4.0-11.0) K/uL RBC 3.94 L (4.50-5.90) M/uL Hgb 12.8 L (13.0-17.0) g/dL Hct 41.1 (38.0-50.0) % MCV 104.3 H (80.0-98.0) fL MCH 32.5 H (27.0-32.0) pg MCHC 31.1 (31.0-37.0) g/dL RDW Std Deviation 53.9 (28.0-62.0) fl RDW Coeff of Sunny 14 (11.0-15.0) % Plt Count 228 (150-400) K/uL MPV 11.60 (7.40-12.00) fL Neut % (Auto) 92.5 H (48.0-80.0) % Lymph % (Auto) 3.2 L (16.0-40.0) % [place] % (Auto) 4.2 (0.0-15.0) % Eos % (Auto) 0.0 (0.0-7.0) % Baso % (Auto) 0.1 (0.0-1.5) % Neut # (Auto) 15.2 H (1.4-5.7) K/uL Lymph # (Auto) 0.5 L (0.6-2.4) K/uL [place] # (Auto) 0.7 (0.0-0.8) K/uL Eos # (Auto) 0.0 (0.0-0.7) K/uL Baso # (Auto) 0.0 (0.0-0.1) K/uL Nucleated RBC % 0.0 /100WBC Nucleated RBCs # 0 K/uL INR 3.58 Sodium 144 (136-148) mmol/L Potassium 4.1 (3.5-5.1) mmol/L Chloride 105 (98-107) mmol/L Carbon Dioxide 40.2 H (21.0-32.0) mmol/L BUN 31 H (7.0-18.0) mg/dL Creatinine 1.2 (0.8-1.3) mg/dL Est Cr Clr Drug Dosing 60.28 mL/min Estimated GFR (MDRD) 58.3 ml/min Glucose 343 H (74-106) mg/dL Calcium 8.1 L (8.5-10.1) mg/dL Magnesium 2.3 (1.8-2.4) mg/dL Result Diagrams: 04/11/21 05:58 04/11/21 05:58 Sepsis Event Note - Evaluation Sepsis Screening Result: Severe Sepsis Risk - Focused Exam Vital Signs: Vital Signs Temp Resp BP Pulse Ox 04/11/21 07:00 18 93 L 04/11/21 06:00 20 93 L 04/11/21 05:00 17 92 L 04/11/21 04:00 96.8 F L 16 120/69 93 L 04/11/21 03:00 20 94 L 04/11/21 02:00 14 93 L 04/11/21 01:00 18 92 L 04/11/21 00:00 97.8 F 24 H 147/72 H 93 L 04/10/21 23:00 21 H 88 L 04/10/21 22:00 22 H 90 L 04/10/21 21:00 20 92 L - Problem List & Annotations (1) Acute on chronic respiratory failure with hypoxia and hypercapnia SNOMED Code(s): 70239678490680 Code(s): J96.21 - ACUTE AND CHRONIC RESPIRATORY FAILURE WITH HYPOXIA; J96.22 - ACUTE AND CHRONIC RESPIRATORY FAILURE WITH HYPERCAPNIA Status: Acute Cu rrent Visit: Yes (2) Cellulitis SNOMED Code(s): 935049745 Code(s): L03.90 - CELLULITIS, UNSPECIFIED Status: Acute Current Visit: Yes Qualifiers: Site of cellulitis: extremity Site of cellulitis of extremity: upper extremity Laterality: left Qualified Code(s): L03.114 - Cellulitis of left upper limb (3) Anasarca SNOMED Code(s): 928312833, 775540197 Code(s): R60.1 - GENERALIZED EDEMA Status: Acute Current Visit: Yes (4) Hypoalbuminemia SNOMED Code(s): 540962736 Code(s): E88.09 - OTH DISORDERS OF PLASMA-PROTEIN METABOLISM, NEC Status: Acute Current Visit: Yes (5) Atypical pneumonia SNOMED Code(s): 009066149 Code(s): J18.9 - PNEUMONIA, UNSPECIFIED ORGANISM Status: Acute Current Visit: No (6) Constipation SNOMED Code(s): 29473847 Code(s): K59.00 - CONSTIPATION, UNSPECIFIED Status: Acute Current Visit: No (7) Chronic respiratory failure with hypoxia SNOMED Code(s): 488800985 Code(s): J96.11 - CHRONIC RESPIRATORY FAILURE WITH HYPOXIA Status: Chronic Current Visit: No (8) History of DVT (deep vein thrombosis) SNOMED Code(s): 672192882 Code(s): Z86.718 - PERSONAL HISTORY OF OTHER VENOUS THROMBOSIS AND EMBOLISM Status: Chronic Current Visit: No (9) Hypothyroidism SNOMED Code(s): 61358187 Code(s): E03.9 - HYPOTHYROIDISM, UNSPECIFIED Status: Chronic Current Visit: No (10) Oxygen dependent SNOMED Code(s): 232369067517 Code(s): Z99.81 - DEPENDENCE ON SUPPLEMENTAL OXYGEN Status: Chronic Current Visit: No (11) Pulmonary fibrosis SNOMED Code(s): 75523772 Code(s): J84.10 - PULMONARY FIBROSIS, UNSPECIFIED Status: Chronic Current Visit: No (12) Pulmonary edema SNOMED Code(s): 55577219 Code(s): J81.1 - CHRONIC PULMONARY EDEMA Status: Acute Current Visit: Yes - Problem List Review Problem List Initiated/Reviewed/Updated: Yes - My Orders Last 24 Hours: My Active Orders 04/10/21 13:13 Consult to Hospice [CONS] Routine 04/11/21 14:00 Furosemide [Lasix] 60 mg IVPUSH TID 04/12/21 05:11 BASIC METABOLIC PANEL,BMP [CHEM] AM CBC WITH AUTO DIFF [HEME] AM INR,PT,PROTHROMBIN TIME [COAG] AM MAGNESIUM [CHEM] AM - Plan Plan:: 80 y/o M admitted for left arm cellulitis 1. Left arm cellulitis -Continues to improve -Keep arm elevated as much as possible -Continue Zosyn and vancomycin, day 6 2. Acute on chronic hypoxic hypercapnic respiratory failure secondary to pulmonary edema, pulmonary fibrosis and possible CAP -Patient remained stable on BiPAP. 10/5 75% FiO2 at this time. Patient has not needed any medication for sedation or decreasing anxiety. Patient appears very comfortable on BiPAP. -Continue BiPAP today intermittently allowing heated high flow nasal cannula with meals. Continue to monitor respiratory status. -Continue azithromycin, Zosyn and vancomycin -Lasix to 60 mg IV TID, bump in BUN this morning we will monitor renal function tomorrow. -Continue IV steroids 60 mg every 8 hours -Patient and family will talk with hospice today regarding goals of care. This is more of an educational discussion as Ej is unaware of what the abilities of hospice are. I did discuss with family nurse yesterday that if he does not improve in the next couple days they need to consider changing goals of care to consider more palliative as his respiratory status is not changing and there may be no improvement in the coming days as he is nearing max therapy. 3. Pulmonary fibrosis, chronic hypoxic respiratory failure -Plan as above -Continue oxygen titrate as needed to keep sats greater than 88%. -Encourage I-S -Encourage up to chair and ambulation as tolerated -DuoNebs as needed 4. Hypothyroidism -Continue levothyroxine 5. History DVT on Coumadin -INR 3.58 today -Hold warfarin today -Appreciate pharmacy's assistance in dosing. VTE prophylaxis: Warfarin GI prophylaxis: Protonix CODE STATUS CPR only, declines intubation if needed. Dispo: 3 days pending improvement
[2021-04-11] MEDS: Nystatin Topical Powder 15 GM Bottle TOP SCH ×3 (09:00→22:17)
[2021-04-11] MEDS: Polyethylene Glycol 3350 Powder 17 GM Packet PO SCH (09:05)
[2021-04-11] MEDS: Docusate Sodium 100 MG Cap PO SCH (09:05)
[2021-04-11] MEDS: Aspirin 81 MG Tab.Chew PO SCH (09:16)
[2021-04-11] MEDS ORDERED: Docusate Sodium 100 MG Cap PO PRN (09:30)
[2021-04-11] MEDS: VANCOmycin 1.5 GM/300 ML 1.5 GM in Premix Bag 1 BAG IV SCH (11:09)
[2021-04-11] MEDS ORDERED: Glucagon,Human Recombinant 1 MG Vial IM PRN ×4 (11:51→22:39)
[2021-04-11] MEDS ORDERED: 50% Dextrose in Water 50 ML Syringe IV PRN ×3 (11:51→19:40)
--- NOTE | 2021-04-11 12:03 | PN ---
[facility] Physician - Brief Progress [id number]/21/2021 11:52[facility] Vineet Huynh, NADIRA - MWJem (LASHAUN) - TEDDY RUDY LAZODate of Service 04/11/2021 11:52HPI/Event s of Note eICU [id number] male currently admitted to the hospital with acute hypoxic respirato ry failure secondary to ILD exacerbation. Since admission patient has been empirically treated for C AP with vancomycin/Zosyn/azithromycin. Patient has also been initiated on diuretics currently on Las ix 60 mg 3 times daily. In regards to ILD patient has been on 60 mg every 8 hour Solu-Medrol as well . Patient also is anticoagulated given history of VTE. Despite being aggressively managed with the above patient continues to have worsening hypoxia requiring Vapotherm/heated high flow nasal cannula. At this time we have no further recommendations in regards to patient progressively worsening hypox ic respiratory failure. Recommend continued above management as well as addressing goals of care. G ivlenore patient's age patient will not be a candidate for lung transplant and or ECMO. Can consider repe at chest x-ray to see if patient has developed new pleural effusions that would warrant thoracentesis . If patient is found to have worsening atelectasis recommend chest PT and continue with incentive s pirometry.Interventions Major-Hypoxemia - evaluation and management, Respiratory failure - evaluation and management
[2021-04-11] MEDS: Azithromycin 250 MG Tab PO SCH (13:04)
[2021-04-11] MEDS: Furosemide 100 MG/10 ML SDV IVPUSH SCH ×2 (13:05→22:15)
[2021-04-11] MEDS ORDERED: Warfarin 2 MG Tab PO SCH (14:00)
--- NOTE | 2021-04-11 16:45 | CR ---
INDICATION: Hypoxia TECHNIQUE: Portable upright AP view of the chest COMPARISON: Upright AP view of the chest 04/07/2021 FINDINGS: Diffuse coarse pulmonary opacities are again demonstrated bilaterally, no significant change. There is no appreciable pleural effusion or pneumothorax. There is stable enlargement of the cardiac silhouette. The visualized osseous structures are unremarkable. IMPRESSION: Stable diffuse bilateral coarse pulmonary opacities. Stable enlargement of the cardiac silhouette. Dictated by Benjamin Lopez MD @ 04/11/2021 4:43:[address] Benjamin Lopez @ Apr 11 2021 4:43PM
[2021-04-11] MEDS: Insulin Aspart 100 Units/ML 3 ML Pen SUBCUT SCH (17:13)
[2021-04-11] MEDS ORDERED: Insulin Aspart 100 Units/ML 3 ML Pen SUBCUT ONE ×2 (18:29→19:41)
[2021-04-11] MEDS: atorvaSTATin 40 MG Tab PO SCH (22:12)
[2021-04-11] MEDS ORDERED: 50% Dextrose in Water 50 ML Syringe IVPUSH PRN (22:39)
[2021-04-12] MEDS ORDERED: Glucagon,Human Recombinant 1 MG Vial IM PRN (02:10)
[2021-04-12] MEDS ORDERED: 50% Dextrose in Water 50 ML Syringe IVPUSH PRN (02:10)
[2021-04-12] MEDS: Piperacillin/Tazobactam 3.375 GM in Sodium Chloride 0.9% 50 ML IV SCH ×3 (06:16→21:55)
[2021-04-12] MEDS: Potassium Chloride 20 MEQ Tab.ER PO SCH ×3 (06:17→21:56)
[2021-04-12] MEDS: Furosemide 100 MG/10 ML SDV IVPUSH SCH ×3 (06:20→21:56)
[2021-04-12] MEDS: Nystatin Topical Powder 15 GM Bottle TOP SCH ×3 (06:21→21:54)
[2021-04-12] MEDS: Budesonide 0.5 MG/2 ML Neb Susp INH SCH ×3 (06:21→21:55)
[2021-04-12] MEDS: methylPREDNISolone Sodium Succinate 40 MG/1 ML SDV IVPUSH SCH ×3 (06:23→23:37)
[2021-04-12] MEDS: Levothyroxine 150 MCG Tab PO SCH (06:30)
[2021-04-12] MEDS: Pantoprazole 40 MG Tab.CR PO SCH (06:30)
[2021-04-12 06:39] LABS: POTASSIUM,K 4.3 mmol/L (3.5-5.1)
[2021-04-12 06:42] LABS: CARBON DIOXIDE,CO2 44.3 mmol/L (21.0-32.0)
[2021-04-12] MEDS: Polyethylene Glycol 3350 Powder 17 GM Packet PO SCH (08:12)
[2021-04-12] MEDS: Aspirin 81 MG Tab.Chew PO SCH (08:14)
[2021-04-12] MEDS: Insulin Aspart 100 Units/ML 3 ML Pen SUBCUT SCH ×3 (09:29→17:42)
[2021-04-12] MEDS: VANCOmycin 1.5 GM/300 ML 1.5 GM in Premix Bag 1 BAG IV SCH (11:13)
[2021-04-12] MEDS ORDERED: Warfarin 2.5 MG Tab PO SCH (14:00)
[2021-04-12 14:40] LABS: HEMOGLOBIN A1C 7.9 %
[2021-04-12] MEDS: Azithromycin 250 MG Tab PO SCH (14:59)
[2021-04-12] MEDS: atorvaSTATin 40 MG Tab PO SCH (21:56)
[2021-04-13] MEDS: Potassium Chloride 20 MEQ Tab.ER PO SCH ×3 (05:06→21:01)
[2021-04-13] MEDS: Furosemide 100 MG/10 ML SDV IVPUSH SCH ×3 (06:00→21:00)
[2021-04-13] MEDS: Nystatin Topical Powder 15 GM Bottle TOP SCH ×3 (06:03→21:00)
[2021-04-13] MEDS: methylPREDNISolone Sodium Succinate 40 MG/1 ML SDV IVPUSH SCH ×3 (06:03→22:10)
[2021-04-13] MEDS: Budesonide 0.5 MG/2 ML Neb Susp INH SCH ×3 (06:04→21:00)
[2021-04-13] MEDS: Piperacillin/Tazobactam 3.375 GM in Sodium Chloride 0.9% 50 ML IV SCH ×3 (06:04→21:00)
[2021-04-13] MEDS: Levothyroxine 150 MCG Tab PO SCH (06:30)
[2021-04-13] MEDS: Pantoprazole 40 MG Tab.CR PO SCH (06:30)
[2021-04-13 07:05] LABS: POTASSIUM,K 4.6 mmol/L (3.5-5.1)
[2021-04-13 07:20] LABS: CARBON DIOXIDE,CO2 48.8 mmol/L (21.0-32.0)
[2021-04-13] MEDS: Insulin Aspart 100 Units/ML 3 ML Pen SUBCUT SCH ×3 (09:35→17:58)
[2021-04-13] MEDS: Aspirin 81 MG Tab.Chew PO SCH (09:36)
[2021-04-13] MEDS: Polyethylene Glycol 3350 Powder 17 GM Packet PO SCH (09:37)
[2021-04-13] MEDS ORDERED: LORazepam 1 MG Tab PO ONE (11:31)
[2021-04-13] MEDS: VANCOmycin 1.5 GM/300 ML 1.5 GM in Premix Bag 1 BAG IV SCH (11:51)
--- NOTE | 2021-04-13 12:39 | PCM.PN ---
- General Info Date of Service: 04/12/21 - Review of Systems Systems Review Comment:: feeling a little bit better - Patient Data Vitals - Most Recent: Last Vital Signs Temp 36.2 C 04/13/21 08:00 Pulse 100 04/07/21 21:45 Resp 12 04/13/21 08:00 BP 136/69 04/13/21 08:00 Pulse Ox 94 L 04/13/21 08:00 Weight - Most Recent: 117.798 kg I&O - Last 24 Hours: Intake & Output 04/12/21 04/13/21 04/13/21 22:59 06:59 14:59 Intake Total 1486 740 Output Total 2250 1640 Balance -764 -900 Lab Results Last 24 Hours: Laboratory Results - last 24 hr 04/12/21 04/12/21 04/12/21 Range/Units 05:35 09:26 13:25 WBC (4.0-11.0) K/uL RBC (4.50-5.90) M/uL Hgb (13.0-17.0) g/dL Hct (38.0-50.0) % MCV (80.0-98.0) fL MCH (27.0-32.0) pg MCHC (31.0-37.0) g/dL RDW Std Deviation (28.0-62.0) fl RDW Coeff of Sunny (11.0-15.0) % Plt Count (150-400) K/uL MPV (7.40-12.00) fL Neut % (Auto) (48.0-80.0) % Lymph % (Auto) (16.0-40.0) % [place] % (Auto) (0.0-15.0) % Eos % (Auto) (0.0-7.0) % Baso % (Auto) (0.0-1.5) % Neut # (Auto) (1.4-5.7) K/uL Lymph # (Auto) (0.6-2.4) K/uL [place] # (Auto) (0.0-0.8) K/uL Eos # (Auto) (0.0-0.7) K/uL Baso # (Auto) (0.0-0.1) K/uL Nucleated RBC % /100WBC Nucleated RBCs # K/uL INR Sodium (136-148) mmol/L Potassium (3.5-5.1) mmol/L Chloride (98-107) mmol/L Carbon Dioxide (21.0-32.0) mmol/L BUN (7.0-18.0) mg/dL Creatinine (0.8-1.3) mg/dL Est Cr Clr Drug Dosing mL/min Estimated GFR (MDRD) ml/min Glucose (74-106) mg/dL POC Glucose 242 H 438 H* (70-99) mg/dL Hemoglobin A1c 7.9 H (4.5 - 6.2) % Calcium (8.5-10.1) mg/dL Phosphorus (2.6-4.7) mg/dL Magnesium (1.8-2.4) mg/dL Total Bilirubin (0.2-1.0) mg/dL AST (15-37) IU/L ALT (14-63) IU/L Alkaline Phosphatase (46-116) U/L Total Protein (6.4-8.2) g/dL Albumin (3.4-5.0) g/dL Globulin (2.6-4.0) g/dL Albumin/Globulin Ratio (0.9-1.6) 04/12/21 04/13/21 04/13/21 Range/Units 17:37 06:08 06:08 WBC 15.10 H (4.0-11.0) K/uL RBC 4.05 L (4.50-5.90) M/uL Hgb 13.1 (13.0-17.0) g/dL Hct 42.4 (38.0-50.0) % MCV 104.7 H (80.0-98.0) fL MCH 32.3 H (27.0-32.0) pg MCHC 30.9 L (31.0-37.0) g/dL RDW Std Deviation 52.9 (28.0-62.0) fl RDW Coeff of Sunny 14 (11.0-15.0) % Plt Count 236 (150-400) K/uL MPV 11.70 (7.40-12.00) fL Neut % (Auto) 94.9 H (48.0-80.0) % Lymph % (Auto) 1.8 L (16.0-40.0) % [place] % (Auto) 3.2 (0.0-15.0) % Eos % (Auto) 0.0 (0.0-7.0) % Baso % (Auto) 0.1 (0.0-1.5) % Neut # (Auto) 14.3 H (1.4-5.7) K/uL Lymph # (Auto) 0.3 L (0.6-2.4) K/uL [place] # (Auto) 0.5 (0.0-0.8) K/uL Eos # (Auto) 0.0 (0.0-0.7) K/uL Baso # (Auto) 0.0 (0.0-0.1) K/uL Nucleated RBC % 0.2 /100WBC Nucleated RBCs # 0 K/uL INR Sodium 144 (136-148) mmol/L Potassium 4.6 (3.5-5.1) mmol/L Chloride 100 (98-107) mmol/L Carbon Dioxide 48.8 H (21.0-32.0) mmol/L BUN 33 H (7.0-18.0) mg/dL Creatinine 1.2 (0.8-1.3) mg/dL Est Cr Clr Drug Dosing 60.28 mL/min Estimated GFR (MDRD) 58.3 ml/min Glucose 348 H (74-106) mg/dL POC Glucose 345 H (70-99) mg/dL Hemoglobin A1c (4.5 - 6.2) % Calcium 8.0 L (8.5-10.1) mg/dL Phosphorus 4.1 (2.6-4.7) mg/dL Magnesium 2.5 H (1.8-2.4) mg/dL Total Bilirubin 0.9 (0.2-1.0) mg/dL AST 23 (15-37) IU/L ALT 52 (14-63) IU/L Alkaline Phosphatase 76 (46-116) U/L Total Protein 5.5 L (6.4-8.2) g/dL Albumin 2.3 L (3.4-5.0) g/dL Globulin 3.2 (2.6-4.0) g/dL Albumin/Globulin Ratio 0.7 L (0.9-1.6) 05/23/21 Range/Units 09:12 WBC (4.0-11.0) K/uL RBC (4.50-5.90) M/uL Hgb (13.0-17.0) g/dL Hct (38.0-50.0) % MCV (80.0-98.0) fL MCH (27.0-32.0) pg MCHC (31.0-37.0) g/dL RDW Std Deviation (28.0-62.0) fl RDW Coeff of Sunny (11.0-15.0) % Plt Count (150-400) K/uL MPV (7.40-12.00) fL Neut % (Auto) (48.0-80.0) % Lymph % (Auto) (16.0-40.0) % [place] % (Auto) (0.0-15.0) % Eos % (Auto) (0.0-7.0) % Baso % (Auto) (0.0-1.5) % Neut # (Auto) (1.4-5.7) K/uL Lymph # (Auto) (0.6-2.4) K/uL [place] # (Auto) (0.0-0.8) K/uL Eos # (Auto) (0.0-0.7) K/uL Baso # (Auto) (0.0-0.1) K/uL Nucleated RBC % /100WBC Nucleated RBCs # K/uL INR 1.65 Sodium (136-148) mmol/L Potassium (3.5-5.1) mmol/L Chloride (98-107) mmol/L Carbon Dioxide (21.0-32.0) mmol/L BUN (7.0-18.0) mg/dL Creatinine (0.8-1.3) mg/dL Est Cr Clr Drug Dosing mL/min Estimated GFR (MDRD) ml/min Glucose (74-106) mg/dL POC Glucose (70-99) mg/dL Hemoglobin A1c (4.5 - 6.2) % Calcium (8.5-10.1) mg/dL Phosphorus (2.6-4.7) mg/dL Magnesium (1.8-2.4) mg/dL Total Bilirubin (0.2-1.0) mg/dL AST (15-37) IU/L ALT (14-63) IU/L Alkaline Phosphatase (46-116) U/L Total Protein (6.4-8.2) g/dL Albumin (3.4-5.0) g/dL Globulin (2.6-4.0) g/dL Albumin/Globulin Ratio (0.9-1.6) Med Orders - Current: Current Medications Albuterol/Ipratropium (Albuterol/Ipratropium 3.0-0.5 Mg/3 Ml Neb Soln) 3 ml NEB Q4HRRT PRN PRN Reason: Shortness of Breath Last Admin: 04/05/21 12:07 Dose: 3 ml Documented by: Aspirin (Aspirin 81 Mg Tab.Chew) 81 mg PO DAILY [facility] Last Admin: 04/13/21 09:36 Dose: 81 mg Documented by: Atorvastatin Calcium (Atorvastatin 40 Mg Tab) 40 mg PO BEDTIME [facility] Last Admin: 04/12/21 21:56 Dose: 40 mg Documented by: Azithromycin (Azithromycin 250 Mg Tab) 500 mg PO Q24H [facility] Last Admin: 04/12/21 14:59 Dose: 500 mg Documented by: Bisacodyl (Bisacodyl 10 Mg Supp) 10 mg RECTAL DAILY PRN PRN Reason: if no BM in 2 days Budesonide (Budesonide 0.5 Mg/2 Ml Neb Susp) 1 mg INH TID [facility] Last Admin: 04/13/21 06:04 Dose: 1 mg Documented by: Dextrose/Water (50% Dextrose In Water 50 Ml Syringe) 50 ml IVPUSH ASDIRECTED PRN PRN Reason: Hypoglycemia Docusate Sodium (Docusate Sodium 100 Mg Cap) 100 mg PO DAILY PRN PRN Reason: Constipation Furosemide (Furosemide 100 Mg/10 Ml Sdv) 60 mg IVPUSH TID [facility] Last Admin: 04/13/21 06:00 Dose: 60 mg Documented by: Glucagon (Glucagon,Human Recombinant 1 Mg Vial) 1 mg IM ASDIRECTED PRN PRN Reason: Hypoglycemia Piperacillin Sod/Tazobactam (Sod 3.375 gm/ Sodium Chloride) 50 mls @ 100 mls/hr IV Q8H [facility] Last Admin: 04/13/21 06:04 Dose: 100 mls/hr Documented by: Vancomycin HCl 1.5 gm/ Premix 300 mls @ 200 mls/hr IV Q24H [facility] Last Admin: 04/13/21 11:51 Dose: 200 mls/hr Documented by: Insulin Aspart (Insulin Aspart 100 Units/Ml 3 Ml Pen) 0 unit SUBCUT TIDAC [facility]; Protocol Last Admin: 04/13/21 09:35 Dose: 8 units Documented by: Levothyroxine Sodium (Levothyroxine 150 Mcg Tab) 150 mcg PO ACBREAKFAST [facility] Last Admin: 04/13/21 06:30 Dose: 150 mcg Documented by: Methylprednisolone Sodium Succinate (Methylprednisolone Sodium Succinate 40 Mg/1 Ml Sdv) 60 mg IVPUSH Q8H [facility] Last Admin: 04/13/21 06:03 Dose: 60 mg Documented by: Nystatin (Nystatin Topical Powder 15 Gm Bottle) 0 gm TOP TID [facility] Last Admin: 04/13/21 06:03 Dose: 1 applic Documented by: Pantoprazole Sodium (Pantoprazole 40 Mg Tab.Cr) 40 mg PO ACBREAKFAST [facility] Last Admin: 04/13/21 06:30 Dose: 40 mg Documented by: Polyethylene Glycol (Polyethylene Glycol 3350 Powder 17 Gm Packet) 17 gm PO DAILY [facility] Last Admin: 04/13/21 09:37 Dose: Not Given Documented by: Potassium Chloride (Potassium Chloride 20 Meq Tab.Er) 40 meq PO TID [facility] Last Admin: 04/13/21 05:06 Dose: 40 meq Documented by: Sodium Chloride (Sodium Chloride 0.65% Nasal [place] 45 Ml Bottle) 0 ml CADE QID PRN PRN Reason: nasal congestion Vancomycin HCl (Pharmacy To Dose - Vancomycin) 1 dose .XX ASDIRECTED [facility] Warfarin Sodium (Warfarin Ask Dosing) 1 each PO Q24H [facility] Last Admin: 04/12/21 15:05 Dose: 1 each Documented by: Warfarin Sodium (Warfarin 1 Mg Tab) 3 mg PO DAILY@1400 [facility] Stop: 04/13/21 15:00 Discontinued Medications Albuterol/Ipratropium (Albuterol/Ipratropium 3.0-0.5 Mg/3 Ml Neb Soln) 3 ml INH TID PRN PRN Reason: Shortness of Breath Aspirin (Aspirin 81 Mg Tab.Chew) 324 mg PO ONETIME ONE Stop: 04/04/21 16:13 Last Admin: 04/04/21 16:26 Dose: 324 mg Documented by: Budesonide (Budesonide 0.5 Mg/2 Ml Neb Susp) Confirm Administered Dose 0.5 mg .ROUTE .STK-MED ONE Stop: 04/07/21 06:24 Last Admin: 04/07/21 15:59 Dose: Not Given Documented by: Dextrose/Water (50% Dextrose In Water 50 Ml Syringe) 50 ml IV ASDIRECTED PRN PRN Reason: Hypoglycemia Dextrose/Water (50% Dextrose In Water 50 Ml Syringe) 50 ml IV ASDIRECTED PRN PRN Reason: Hypoglycemia Dextrose/Water (50% Dextrose In Water 50 Ml Syringe) 50 ml IV ASDIRECTED PRN PRN Reason: Hypoglycemia Dextrose/Water (50% Dextrose In Water 50 Ml Syringe) 50 ml IVPUSH ASDIRECTED PRN PRN Reason: Hypoglycemia Docusate Sodium (Docusate Sodium 100 Mg Cap) 100 mg PO DAILY [facility] Last Admin: 04/11/21 09:05 Dose: Not Given Documented by: Enoxaparin Sodium (Enoxaparin 40 Mg/0.4 Ml Syringe) 40 mg SUBCUT Q12HR [facility] Last Admin: 04/07/21 08:32 Dose: 40 mg Documented by: Furosemide (Furosemide 20 Mg/2 Ml Vial) 20 mg IVPUSH ONETIME ONE Stop: 04/04/21 22:18 Last Admin: 04/04/21 23:02 Dose: 20 mg Documented by: Furosemide (Furosemide 40 Mg/4 Ml Vial) 20 mg IVPUSH NOW ONE Stop: 04/05/21 09:07 Last Admin: 04/05/21 09:39 Dose: 20 mg Documented by: Furosemide (Furosemide 40 Mg/4 Ml Vial) 20 mg IVPUSH ONETIME ONE Stop: 04/05/21 17:01 Last Admin: 04/05/21 16:48 Dose: Not Given Documented by: Furosemide (Furosemide 40 Mg/4 Ml Vial) 40 mg IVPUSH DAILY [facility] Last Admin: 04/07/21 08:27 Dose: 40 mg Documented by: Furosemide (Furosemide 20 Mg/2 Ml Vial) Confirm Administered Dose 20 mg .ROUTE .STK-MED ONE Stop: 04/05/21 21:47 Last Admin: 04/05/21 22:10 Dose: Not Given Documented by: Furosemide (Furosemide 40 Mg/4 Ml Vial) 20 mg IVPUSH NOW ONE Stop: 04/05/21 22:00 Last Admin: 04/05/21 22:09 Dose: 20 mg Documented by: Furosemide (Furosemide 40 Mg/4 Ml Vial) 40 mg IVPUSH BIDDIURETIC [facility] Last Admin: 04/08/21 08:15 Dose: 40 mg Documented by: Furosemide (Furosemide 40 Mg/4 Ml Vial) 40 mg IVPUSH NOW ONE Stop: 04/07/21 22:39 Last Admin: 04/07/21 22:45 Dose: 40 mg Documented by: Furosemide (Furosemide 40 Mg/4 Ml Vial) 40 mg IVPUSH TID [facility] Last Admin: 04/10/21 06:37 Dose: 40 mg Documented by: Furosemide (Furosemide 40 Mg/4 Ml Vial) 60 mg IVPUSH TID [facility] Last Admin: 04/11/21 06:18 Dose: 60 mg Documented by: Glucagon (Glucagon,Human Recombinant 1 Mg Vial) 1 mg IM ASDIRECTED PRN PRN Reason: Hypoglycemia Glucagon (Glucagon,Human Recombinant 1 Mg Vial) 1 mg IM ASDIRECTED PRN PRN Reason: Hypoglycemia Glucagon (Glucagon,Human Recombinant 1 Mg Vial) 1 mg IM ASDIRECTED PRN PRN Reason: Hypoglycemia Glucagon (Glucagon,Human Recombinant 1 Mg Vial) 1 mg IM ASDIRECTED PRN PRN Reason: Hypoglycemia Ceftriaxone Sodium/Dextrose 2 (gm/ Premix) 50 mls @ 100 mls/hr IV ONETIME ONE Stop: 04/04/21 17:58 Last Admin: 04/04/21 17:45 Dose: 100 mls/hr Documented by: Piperacillin Sod/Tazobactam (Sod 3.375 gm/ Sodium Chloride) 50 mls @ 100 mls/hr IV ONETIME ONE Stop: 04/04/21 21:32 Last Admin: 04/04/21 21:49 Dose: 100 mls/hr Documented by: Vancomycin HCl 1.5 gm/ Premix 300 mls @ 200 mls/hr IV Q12H [facility] Last Admin: 04/06/21 23:14 Dose: Not Given Documented by: Dexmedetomidine/Sodium (Chloride 400 mcg/ Premix) 100 mls @ 6.084 mls/hr IV TITRATE [facility]; Protocol Insulin Aspart (Insulin Aspart 100 Units/Ml 3 Ml Pen) 7 unit SUBCUT ONETIME ONE Stop: 04/11/21 18:30 Last Admin: 04/11/21 18:40 Dose: 7 units Documented by: Insulin Aspart (Insulin Aspart 100 Units/Ml 3 Ml Pen) 5 unit SUBCUT ONETIME ONE Stop: 04/11/21 19:42 Last Admin: 04/11/21 19:50 Dose: 5 units Documented by: Insulin Aspart (Insulin Aspart 100 Units/Ml 10 Ml Vial) 10 unit SUBCUT ONETIME ONE Stop: 04/11/21 22:41 Last Admin: 04/11/21 22:53 Dose: 10 units Documented by: Insulin Aspart (Insulin Aspart 100 Units/Ml 10 Ml Vial) 10 unit SUBCUT ONETIME ONE Stop: 04/12/21 02:11 Last Admin: 04/12/21 02:16 Dose: 10 units Documented by: Iopamidol (Iopamidol 755 Mg/Ml 500 Ml Multipack Bottle) 100 ml IVPUSH ONETIME ONE Stop: 04/04/21 18:43 Last Admin: 04/04/21 18:44 Dose: 100 ml Documented by: Lorazepam (Lorazepam 2 Mg/Ml Sdv) 0.5 mg IVPUSH ONETIME PRN PRN Reason: Bipap Potassium Chloride (Potassium Chloride 20 Meq Tab.Er) 40 meq PO ONETIME ONE Stop: 04/06/21 12:31 Last Admin: 04/06/21 12:58 Dose: 40 meq Documented by: Potassium Chloride (Potassium Chloride 20 Meq Tab.Er) 40 meq PO ONETIME ONE Stop: 04/08/21 07:50 Last Admin: 04/08/21 08:15 Dose: 40 meq Documented by: Potassium Chloride (Potassium Chloride 20 Meq Tab.Er) 40 meq PO ONETIME ONE Stop: 04/08/21 12:01 Last Admin: 04/08/21 12:24 Dose: 40 meq Documented by: Prednisone (Prednisone 10 Mg Tab) 10 mg PO BEDTIME [facility] Last Admin: 04/07/21 22:28 Dose: 10 mg Documented by: Prednisone (Prednisone 20 Mg Tab) 20 mg PO DAILY [facility] Last Admin: 04/07/21 08:31 Dose: 20 mg Documented by: Tamsulosin HCl (Tamsulosin 0.4 Mg Cap.Er) 0.4 mg PO ONETIME ONE Stop: 04/05/21 19:16 Last Admin: 04/05/21 19:53 Dose: 0.4 mg Documented by: Warfarin Sodium (Warfarin 2 Mg Tab) 4 mg PO ONETIME ONE Stop: 04/05/21 14:01 Last Admin: 04/05/21 14:05 Dose: 4 mg Documented by: Warfarin Sodium (Warfarin 1 Mg Tab) 3 mg PO ONETIME ONE Stop: 04/06/21 14:01 Last Admin: 04/06/21 13:35 Dose: 3 mg Documented by: Warfarin Sodium (Warfarin 2 Mg Tab) 2 mg PO 04/07/21@1400 [facility] Stop: 04/07/21 15:00 Last Admin: 04/07/21 14:21 Dose: 2 mg Documented by: Warfarin Sodium (Warfarin 1 Mg Tab) 1 mg PO 04/08/21@1400 [facility] Stop: 04/08/21 16:00 Last Admin: 04/08/21 13:44 Dose: 1 mg Documented by: Warfarin Sodium (Warfarin 2.5 Mg Tab) 2.5 mg PO DAILY@1400 [facility] Stop: 04/12/21 15:00 Last Admin: 04/12/21 15:04 Dose: 2.5 mg Documented by: - Exam General: Alert, Oriented Neck: Supple Lungs: Normal Respiratory Effort, Decreased Breath Sounds Cardiovascular: Regular Rate, Regular Rhythm GI/Abdominal Exam: Soft, Non-Tender, No Distention Extremities: Non-Tender, No Pedal Edema Skin: Warm, Dry, Intact - Patient Data Lab Results Last 24 hrs: Laboratory Results - last 24 hr 04/12/21 04/12/21 04/12/21 Range/Units 05:35 09:26 13:25 WBC (4.0-11.0) K/uL RBC (4.50-5.90) M/uL Hgb (13.0-17.0) g/dL Hct (38.0-50.0) % MCV (80.0-98.0) fL MCH (27.0-32.0) pg MCHC (31.0-37.0) g/dL RDW Std Deviation (28.0-62.0) fl RDW Coeff of Sunny (11.0-15.0) % Plt Count (150-400) K/uL MPV (7.40-12.00) fL Neut % (Auto) (48.0-80.0) % Lymph % (Auto) (16.0-40.0) % [place] % (Auto) (0.0-15.0) % Eos % (Auto) (0.0-7.0) % Baso % (Auto) (0.0-1.5) % Neut # (Auto) (1.4-5.7) K/uL Lymph # (Auto) (0.6-2.4) K/uL [place] # (Auto) (0.0-0.8) K/uL Eos # (Auto) (0.0-0.7) K/uL Baso # (Auto) (0.0-0.1) K/uL Nucleated RBC % /100WBC Nucleated RBCs # K/uL INR Sodium (136-148) mmol/L Potassium (3.5-5.1) mmol/L Chloride (98-107) mmol/L Carbon Dioxide (21.0-32.0) mmol/L BUN (7.0-18.0) mg/dL Creatinine (0.8-1.3) mg/dL Est Cr Clr Drug Dosing mL/min Estimated GFR (MDRD) ml/min Glucose (74-106) mg/dL POC Glucose 242 H 438 H* (70-99) mg/dL Hemoglobin A1c 7.9 H (4.5 - 6.2) % Calcium (8.5-10.1) mg/dL Phosphorus (2.6-4.7) mg/dL Magnesium (1.8-2.4) mg/dL Total Bilirubin (0.2-1.0) mg/dL AST (15-37) IU/L ALT (14-63) IU/L Alkaline Phosphatase (46-116) U/L Total Protein (6.4-8.2) g/dL Albumin (3.4-5.0) g/dL Globulin (2.6-4.0) g/dL Albumin/Globulin Ratio (0.9-1.6) 04/12/21 04/13/21 04/13/21 Range/Units 17:37 06:08 06:08 WBC 15.10 H (4.0-11.0) K/uL RBC 4.05 L (4.50-5.90) M/uL Hgb 13.1 (13.0-17.0) g/dL Hct 42.4 (38.0-50.0) % MCV 104.7 H (80.0-98.0) fL MCH 32.3 H (27.0-32.0) pg MCHC 30.9 L (31.0-37.0) g/dL RDW Std Deviation 52.9 (28.0-62.0) fl RDW Coeff of Sunny 14 (11.0-15.0) % Plt Count 236 (150-400) K/uL MPV 11.70 (7.40-12.00) fL Neut % (Auto) 94.9 H (48.0-80.0) % Lymph % (Auto) 1.8 L (16.0-40.0) % [place] % (Auto) 3.2 (0.0-15.0) % Eos % (Auto) 0.0 (0.0-7.0) % Baso % (Auto) 0.1 (0.0-1.5) % Neut # (Auto) 14.3 H (1.4-5.7) K/uL Lymph # (Auto) 0.3 L (0.6-2.4) K/uL [place] # (Auto) 0.5 (0.0-0.8) K/uL Eos # (Auto) 0.0 (0.0-0.7) K/uL Baso # (Auto) 0.0 (0.0-0.1) K/uL Nucleated RBC % 0.2 /100WBC Nucleated RBCs # 0 K/uL INR Sodium 144 (136-148) mmol/L Potassium 4.6 (3.5-5.1) mmol/L Chloride 100 (98-107) mmol/L Carbon Dioxide 48.8 H (21.0-32.0) mmol/L BUN 33 H (7.0-18.0) mg/dL Creatinine 1.2 (0.8-1.3) mg/dL Est Cr Clr Drug Dosing 60.28 mL/min Estimated GFR (MDRD) 58.3 ml/min Glucose 348 H (74-106) mg/dL POC Glucose 345 H (70-99) mg/dL Hemoglobin A1c (4.5 - 6.2) % Calcium 8.0 L (8.5-10.1) mg/dL Phosphorus 4.1 (2.6-4.7) mg/dL Magnesium 2.5 H (1.8-2.4) mg/dL Total Bilirubin 0.9 (0.2-1.0) mg/dL AST 23 (15-37) IU/L ALT 52 (14-63) IU/L Alkaline Phosphatase 76 (46-116) U/L Total Protein 5.5 L (6.4-8.2) g/dL Albumin 2.3 L (3.4-5.0) g/dL Globulin 3.2 (2.6-4.0) g/dL Albumin/Globulin Ratio 0.7 L (0.9-1.6) 04/13/21 Range/Units 09:12 WBC (4.0-11.0) K/uL RBC (4.50-5.90) M/uL Hgb (13.0-17.0) g/dL Hct (38.0-50.0) % MCV (80.0-98.0) fL MCH (27.0-32.0) pg MCHC (31.0-37.0) g/dL RDW Std Deviation (28.0-62.0) fl RDW Coeff of Sunny (11.0-15.0) % Plt Count (150-400) K/uL MPV (7.40-12.00) fL Neut % (Auto) (48.0-80.0) % Lymph % (Auto) (16.0-40.0) % [place] % (Auto) (0.0-15.0) % Eos % (Auto) (0.0-7.0) % Baso % (Auto) (0.0-1.5) % Neut # (Auto) (1.4-5.7) K/uL Lymph # (Auto) (0.6-2.4) K/uL [place] # (Auto) (0.0-0.8) K/uL Eos # (Auto) (0.0-0.7) K/uL Baso # (Auto) (0.0-0.1) K/uL Nucleated RBC % /100WBC Nucleated RBCs # K/uL INR 1.65 Sodium (136-148) mmol/L Potassium (3.5-5.1) mmol/L Chloride (98-107) mmol/L Carbon Dioxide (21.0-32.0) mmol/L BUN (7.0-18.0) mg/dL Creatinine (0.8-1.3) mg/dL Est Cr Clr Drug Dosing mL/min Estimated GFR (MDRD) ml/min Glucose (74-106) mg/dL POC Glucose (70-99) mg/dL Hemoglobin A1c (4.5 - 6.2) % Calcium (8.5-10.1) mg/dL Phosphorus (2.6-4.7) mg/dL Magnesium (1.8-2.4) mg/dL Total Bilirubin (0.2-1.0) mg/dL AST (15-37) IU/L ALT (14-63) IU/L Alkaline Phosphatase (46-116) U/L Total Protein (6.4-8.2) g/dL Albumin (3.4-5.0) g/dL Globulin (2.6-4.0) g/dL Albumin/Globulin Ratio (0.9-1.6) Result Diagrams: 04/13/21 06:08 04/13/21 06:08 Sepsis Event Note - Evaluation Sepsis Screening Result: Severe Sepsis Risk - Focused Exam Vital Signs: Vital Signs Temp Resp BP Pulse Ox 04/13/21 08:00 36.2 C 12 136/69 94 L 04/13/21 07:10 91 L 04/13/21 07:00 21 H 88 L 04/13/21 06:00 14 92 L 04/13/21 05:00 36.3 C 23 H 140/65 90 L 04/13/21 04:00 15 91 L 04/13/21 03:00 12 93 L 04/13/21 02:00 14 92 L 04/13/21 01:00 12 91 L - Problem List Review Problem List Initiated/Reviewed/Updated: Yes - My Orders Last 24 Hours: My Active Orders 04/14/21 05:11 CBC WITH AUTO DIFF [HEME] AM COMPREHENSIVE METABOLIC PN,CMP [CHEM] AM 04/14/21 08:55 INR,PT,PROTHROMBIN TIME [COAG] DAILY 04/15/21 08:55 INR,PT,PROTHROMBIN TIME [COAG] DAILY 04/16/21 08:55 INR,PT,PROTHROMBIN TIME [COAG] DAILY 04/17/21 08:55 INR,PT,PROTHROMBIN TIME [COAG] DAILY - Plan Plan:: 80 y/o M admitted for left arm cellulitis who then developed acute on chronic hypoxic respiratory failure. 1. Left arm cellulitis -Continues to improve -Keep arm elevated as much as possible -Continue Zosyn and vancomycin, day 7 2. Acute on chronic hypoxic hypercapnic respiratory failure secondary to pulmonary edema, pulmonary fibrosis and possible CAP -Continue HFNC -Continue azithromycin, Zosyn and vancomycin -Lasix to 60 mg IV TID, -Continue IV steroids 60 mg every 8 hours -DuoNebs as needed 3. Hyperglycemia due to steroid therapy -slding scale insulin as needed 4. Hypothyroidism -Continue levothyroxine 5. History DVT on Coumadin -INR 2.16 today -Appreciate pharmacy's assistance in dosing. VTE prophylaxis: Warfarin GI prophylaxis: Protonix CODE STATUS CPR only, declines intubation if needed. Dispo: 3 days pending improvement
--- NOTE | 2021-04-13 12:41 | PCM.PN ---
- General Info Date of Service: 04/13/21 - Review of Systems Systems Review Comment:: reports breathing has improved, swelling of hands and feet have improved. - Patient Data Vitals - Most Recent: Last Vital Signs Temp 36.2 C 04/13/21 08:00 Pulse 100 04/07/21 21:45 Resp 12 04/13/21 08:00 BP 136/69 04/13/21 08:00 Pulse Ox 94 L 04/13/21 08:00 Weight - Most Recent: 117.798 kg I&O - Last 24 Hours: Intake & Output 04/12/21 04/13/21 04/13/21 22:59 06:59 14:59 Intake Total 1486 740 Output Total 2250 1640 Balance -764 -900 Lab Results Last 24 Hours: Laboratory Results - last 24 hr 04/12/21 04/12/21 04/12/21 Range/Units 05:35 09:26 13:25 WBC (4.0-11.0) K/uL RBC (4.50-5.90) M/uL Hgb (13.0-17.0) g/dL Hct (38.0-50.0) % MCV (80.0-98.0) fL MCH (27.0-32.0) pg MCHC (31.0-37.0) g/dL RDW Std Deviation (28.0-62.0) fl RDW Coeff of Sunny (11.0-15.0) % Plt Count (150-400) K/uL MPV (7.40-12.00) fL Neut % (Auto) (48.0-80.0) % Lymph % (Auto) (16.0-40.0) % [place] % (Auto) (0.0-15.0) % Eos % (Auto) (0.0-7.0) % Baso % (Auto) (0.0-1.5) % Neut # (Auto) (1.4-5.7) K/uL Lymph # (Auto) (0.6-2.4) K/uL [place] # (Auto) (0.0-0.8) K/uL Eos # (Auto) (0.0-0.7) K/uL Baso # (Auto) (0.0-0.1) K/uL Nucleated RBC % /100WBC Nucleated RBCs # K/uL INR Sodium (136-148) mmol/L Potassium (3.5-5.1) mmol/L Chloride (98-107) mmol/L Carbon Dioxide (21.0-32.0) mmol/L BUN (7.0-18.0) mg/dL Creatinine (0.8-1.3) mg/dL Est Cr Clr Drug Dosing mL/min Estimated GFR (MDRD) ml/min Glucose (74-106) mg/dL POC Glucose 242 H 438 H* (70-99) mg/dL Hemoglobin A1c 7.9 H (4.5 - 6.2) % Calcium (8.5-10.1) mg/dL Phosphorus (2.6-4.7) mg/dL Magnesium (1.8-2.4) mg/dL Total Bilirubin (0.2-1.0) mg/dL AST (15-37) IU/L ALT (14-63) IU/L Alkaline Phosphatase (46-116) U/L Total Protein (6.4-8.2) g/dL Albumin (3.4-5.0) g/dL Globulin (2.6-4.0) g/dL Albumin/Globulin Ratio (0.9-1.6) 04/12/21 04/13/21 04/13/21 Range/Units 17:37 06:08 06:08 WBC 15.10 H (4.0-11.0) K/uL RBC 4.05 L (4.50-5.90) M/uL Hgb 13.1 (13.0-17.0) g/dL Hct 42.4 (38.0-50.0) % MCV 104.7 H (80.0-98.0) fL MCH 32.3 H (27.0-32.0) pg MCHC 30.9 L (31.0-37.0) g/dL RDW Std Deviation 52.9 (28.0-62.0) fl RDW Coeff of Sunny 14 (11.0-15.0) % Plt Count 236 (150-400) K/uL MPV 11.70 (7.40-12.00) fL Neut % (Auto) 94.9 H (48.0-80.0) % Lymph % (Auto) 1.8 L (16.0-40.0) % [place] % (Auto) 3.2 (0.0-15.0) % Eos % (Auto) 0.0 (0.0-7.0) % Baso % (Auto) 0.1 (0.0-1.5) % Neut # (Auto) 14.3 H (1.4-5.7) K/uL Lymph # (Auto) 0.3 L (0.6-2.4) K/uL [place] # (Auto) 0.5 (0.0-0.8) K/uL Eos # (Auto) 0.0 (0.0-0.7) K/uL Baso # (Auto) 0.0 (0.0-0.1) K/uL Nucleated RBC % 0.2 /100WBC Nucleated RBCs # 0 K/uL INR Sodium 144 (136-148) mmol/L Potassium 4.6 (3.5-5.1) mmol/L Chloride 100 (98-107) mmol/L Carbon Dioxide 48.8 H (21.0-32.0) mmol/L BUN 33 H (7.0-18.0) mg/dL Creatinine 1.2 (0.8-1.3) mg/dL Est Cr Clr Drug Dosing 60.28 mL/min Estimated GFR (MDRD) 58.3 ml/min Glucose 348 H (74-106) mg/dL POC Glucose 345 H (70-99) mg/dL Hemoglobin A1c (4.5 - 6.2) % Calcium 8.0 L (8.5-10.1) mg/dL Phosphorus 4.1 (2.6-4.7) mg/dL Magnesium 2.5 H (1.8-2.4) mg/dL Total Bilirubin 0.9 (0.2-1.0) mg/dL AST 23 (15-37) IU/L ALT 52 (14-63) IU/L Alkaline Phosphatase 76 (46-116) U/L Total Protein 5.5 L (6.4-8.2) g/dL Albumin 2.3 L (3.4-5.0) g/dL Globulin 3.2 (2.6-4.0) g/dL Albumin/Globulin Ratio 0.7 L (0.9-1.6) 04/13/21 Range/Units 09:12 WBC (4.0-11.0) K/uL RBC (4.50-5.90) M/uL Hgb (13.0-17.0) g/dL Hct (38.0-50.0) % MCV (80.0-98.0) fL MCH (27.0-32.0) pg MCHC (31.0-37.0) g/dL RDW Std Deviation (28.0-62.0) fl RDW Coeff of Sunny (11.0-15.0) % Plt Count (150-400) K/uL MPV (7.40-12.00) fL Neut % (Auto) (48.0-80.0) % Lymph % (Auto) (16.0-40.0) % [place] % (Auto) (0.0-15.0) % Eos % (Auto) (0.0-7.0) % Baso % (Auto) (0.0-1.5) % Neut # (Auto) (1.4-5.7) K/uL Lymph # (Auto) (0.6-2.4) K/uL [place] # (Auto) (0.0-0.8) K/uL Eos # (Auto) (0.0-0.7) K/uL Baso # (Auto) (0.0-0.1) K/uL Nucleated RBC % /100WBC Nucleated RBCs # K/uL INR 1.65 Sodium (136-148) mmol/L Potassium (3.5-5.1) mmol/L Chloride (98-107) mmol/L Carbon Dioxide (21.0-32.0) mmol/L BUN (7.0-18.0) mg/dL Creatinine (0.8-1.3) mg/dL Est Cr Clr Drug Dosing mL/min Estimated GFR (MDRD) ml/min Glucose (74-106) mg/dL POC Glucose (70-99) mg/dL Hemoglobin A1c (4.5 - 6.2) % Calcium (8.5-10.1) mg/dL Phosphorus (2.6-4.7) mg/dL Magnesium (1.8-2.4) mg/dL Total Bilirubin (0.2-1.0) mg/dL AST (15-37) IU/L ALT (14-63) IU/L Alkaline Phosphatase (46-116) U/L Total Protein (6.4-8.2) g/dL Albumin (3.4-5.0) g/dL Globulin (2.6-4.0) g/dL Albumin/Globulin Ratio (0.9-1.6) Med Orders - Current: Current Medications Albuterol/Ipratropium (Albuterol/Ipratropium 3.0-0.5 Mg/3 Ml Neb Soln) 3 ml NEB Q4HRRT PRN PRN Reason: Shortness of Breath Last Admin: 04/05/21 12:07 Dose: 3 ml Documented by: Aspirin (Aspirin 81 Mg Tab.Chew) 81 mg PO DAILY [facility] Last Admin: 04/13/21 09:36 Dose: 81 mg Documented by: Atorvastatin Calcium (Atorvastatin 40 Mg Tab) 40 mg PO BEDTIME [facility] Last Admin: 04/12/21 21:56 Dose: 40 mg Documented by: Azithromycin (Azithromycin 250 Mg Tab) 500 mg PO Q24H [facility] Last Admin: 04/12/21 14:59 Dose: 500 mg Documented by: Bisacodyl (Bisacodyl 10 Mg Supp) 10 mg RECTAL DAILY PRN PRN Reason: if no BM in 2 days Budesonide (Budesonide 0.5 Mg/2 Ml Neb Susp) 1 mg INH TID [facility] Last Admin: 04/13/21 06:04 Dose: 1 mg Documented by: Dextrose/Water (50% Dextrose In Water 50 Ml Syringe) 50 ml IVPUSH ASDIRECTED PRN PRN Reason: Hypoglycemia Docusate Sodium (Docusate Sodium 100 Mg Cap) 100 mg PO DAILY PRN PRN Reason: Constipation Furosemide (Furosemide 100 Mg/10 Ml Sdv) 60 mg IVPUSH TID [facility] Last Admin: 04/13/21 06:00 Dose: 60 mg Documented by: Glucagon (Glucagon,Human Recombinant 1 Mg Vial) 1 mg IM ASDIRECTED PRN PRN Reason: Hypoglycemia Piperacillin Sod/Tazobactam (Sod 3.375 gm/ Sodium Chloride) 50 mls @ 100 mls/hr IV Q8H [facility] Last Admin: 04/13/21 06:04 Dose: 100 mls/hr Documented by: Vancomycin HCl 1.5 gm/ Premix 300 mls @ 200 mls/hr IV Q24H [facility] Last Admin: 04/13/21 11:51 Dose: 200 mls/hr Documented by: Insulin Aspart (Insulin Aspart 100 Units/Ml 3 Ml Pen) 0 unit SUBCUT TIDAC [facility]; Protocol Last Admin: 04/13/21 09:35 Dose: 8 units Documented by: Levothyroxine Sodium (Levothyroxine 150 Mcg Tab) 150 mcg PO ACBREAKFAST [facility] Last Admin: 04/13/21 06:30 Dose: 150 mcg Documented by: Methylprednisolone Sodium Succinate (Methylprednisolone Sodium Succinate 40 Mg/1 Ml Sdv) 60 mg IVPUSH Q8H [facility] Last Admin: 04/13/21 06:03 Dose: 60 mg Documented by: Nystatin (Nystatin Topical Powder 15 Gm Bottle) 0 gm TOP TID [facility] Last Admin: 04/13/21 06:03 Dose: 1 applic Documented by: Pantoprazole Sodium (Pantoprazole 40 Mg Tab.Cr) 40 mg PO ACBREAKFAST [facility] Last Admin: 04/13/21 06:30 Dose: 40 mg Documented by: Polyethylene Glycol (Polyethylene Glycol 3350 Powder 17 Gm Packet) 17 gm PO DAILY [facility] Last Admin: 04/13/21 09:37 Dose: Not Given Documented by: Potassium Chloride (Potassium Chloride 20 Meq Tab.Er) 40 meq PO TID [facility] Last Admin: 04/13/21 05:06 Dose: 40 meq Documented by: Sodium Chloride (Sodium Chloride 0.65% Nasal [place] 45 Ml Bottle) 0 ml CADE QID PRN PRN Reason: nasal congestion Vancomycin HCl (Pharmacy To Dose - Vancomycin) 1 dose .XX ASDIRECTED [facility] Warfarin Sodium (Warfarin Ask Dosing) 1 each PO Q24H [facility] Last Admin: 04/12/21 15:05 Dose: 1 each Documented by: Warfarin Sodium (Warfarin 1 Mg Tab) 3 mg PO DAILY@1400 [facility] Stop: 04/13/21 15:00 Discontinued Medications Albuterol/Ipratropium (Albuterol/Ipratropium 3.0-0.5 Mg/3 Ml Neb Soln) 3 ml INH TID PRN PRN Reason: Shortness of Breath Aspirin (Aspirin 81 Mg Tab.Chew) 324 mg PO ONETIME ONE Stop: 04/04/21 16:13 Last Admin: 04/04/21 16:26 Dose: 324 mg Documented by: Budesonide (Budesonide 0.5 Mg/2 Ml Neb Susp) Confirm Administered Dose 0.5 mg .ROUTE .STK-MED ONE Stop: 04/07/21 06:24 Last Admin: 04/07/21 15:59 Dose: Not Given Documented by: Dextrose/Water (50% Dextrose In Water 50 Ml Syringe) 50 ml IV ASDIRECTED PRN PRN Reason: Hypoglycemia Dextrose/Water (50% Dextrose In Water 50 Ml Syringe) 50 ml IV ASDIRECTED PRN PRN Reason: Hypoglycemia Dextrose/Water (50% Dextrose In Water 50 Ml Syringe) 50 ml IV ASDIRECTED PRN PRN Reason: Hypoglycemia Dextrose/Water (50% Dextrose In Water 50 Ml Syringe) 50 ml IVPUSH ASDIRECTED PRN PRN Reason: Hypoglycemia Docusate Sodium (Docusate Sodium 100 Mg Cap) 100 mg PO DAILY [facility] Last Admin: 04/11/21 09:05 Dose: Not Given Documented by: Enoxaparin Sodium (Enoxaparin 40 Mg/0.4 Ml Syringe) 40 mg SUBCUT Q12HR [facility] Last Admin: 04/07/21 08:32 Dose: 40 mg Documented by: Furosemide (Furosemide 20 Mg/2 Ml Vial) 20 mg IVPUSH ONETIME ONE Stop: 04/04/21 22:18 Last Admin: 04/04/21 23:02 Dose: 20 mg Documented by: Furosemide (Furosemide 40 Mg/4 Ml Vial) 20 mg IVPUSH NOW ONE Stop: 04/05/21 09:07 Last Admin: 04/05/21 09:39 Dose: 20 mg Documented by: Furosemide (Furosemide 40 Mg/4 Ml Vial) 20 mg IVPUSH ONETIME ONE Stop: 04/05/21 17:01 Last Admin: 04/05/21 16:48 Dose: Not Given Documented by: Furosemide (Furosemide 40 Mg/4 Ml Vial) 40 mg IVPUSH DAILY [facility] Last Admin: 04/07/21 08:27 Dose: 40 mg Documented by: Furosemide (Furosemide 20 Mg/2 Ml Vial) Confirm Administered Dose 20 mg .ROUTE .STK-MED ONE Stop: 04/05/21 21:47 Last Admin: 04/05/21 22:10 Dose: Not Given Documented by: Furosemide (Furosemide 40 Mg/4 Ml Vial) 20 mg IVPUSH NOW ONE Stop: 04/05/21 22:00 Last Admin: 04/05/21 22:09 Dose: 20 mg Documented by: Furosemide (Furosemide 40 Mg/4 Ml Vial) 40 mg IVPUSH BIDDIURETIC [facility] Last Admin: 04/08/21 08:15 Dose: 40 mg Documented by: Furosemide (Furosemide 40 Mg/4 Ml Vial) 40 mg IVPUSH NOW ONE Stop: 04/07/21 22:39 Last Admin: 04/07/21 22:45 Dose: 40 mg Documented by: Furosemide (Furosemide 40 Mg/4 Ml Vial) 40 mg IVPUSH TID [facility] Last Admin: 04/10/21 06:37 Dose: 40 mg Documented by: Furosemide (Furosemide 40 Mg/4 Ml Vial) 60 mg IVPUSH TID [facility] Last Admin: 04/11/21 06:18 Dose: 60 mg Documented by: Glucagon (Glucagon,Human Recombinant 1 Mg Vial) 1 mg IM ASDIRECTED PRN PRN Reason: Hypoglycemia Glucagon (Glucagon,Human Recombinant 1 Mg Vial) 1 mg IM ASDIRECTED PRN PRN Reason: Hypoglycemia Glucagon (Glucagon,Human Recombinant 1 Mg Vial) 1 mg IM ASDIRECTED PRN PRN Reason: Hypoglycemia Glucagon (Glucagon,Human Recombinant 1 Mg Vial) 1 mg IM ASDIRECTED PRN PRN Reason: Hypoglycemia Ceftriaxone Sodium/Dextrose 2 (gm/ Premix) 50 mls @ 100 mls/hr IV ONETIME ONE Stop: 04/04/21 17:58 Last Admin: 04/04/21 17:45 Dose: 100 mls/hr Documented by: Piperacillin Sod/Tazobactam (Sod 3.375 gm/ Sodium Chloride) 50 mls @ 100 mls/hr IV ONETIME ONE Stop: 04/04/21 21:32 Last Admin: 04/04/21 21:49 Dose: 100 mls/hr Documented by: Vancomycin HCl 1.5 gm/ Premix 300 mls @ 200 mls/hr IV Q12H [facility] Last Admin: 04/06/21 23:14 Dose: Not Given Documented by: Dexmedetomidine/Sodium (Chloride 400 mcg/ Premix) 100 mls @ 6.084 mls/hr IV TITRATE [facility]; Protocol Insulin Aspart (Insulin Aspart 100 Units/Ml 3 Ml Pen) 7 unit SUBCUT ONETIME ONE Stop: 04/11/21 18:30 Last Admin: 04/11/21 18:40 Dose: 7 units Documented by: Insulin Aspart (Insulin Aspart 100 Units/Ml 3 Ml Pen) 5 unit SUBCUT ONETIME ONE Stop: 04/11/21 19:42 Last Admin: 04/11/21 19:50 Dose: 5 units Documented by: Insulin Aspart (Insulin Aspart 100 Units/Ml 10 Ml Vial) 10 unit SUBCUT ONETIME ONE Stop: 04/11/21 22:41 Last Admin: 04/11/21 22:53 Dose: 10 units Documented by: Insulin Aspart (Insulin Aspart 100 Units/Ml 10 Ml Vial) 10 unit SUBCUT ONETIME ONE Stop: 04/12/21 02:11 Last Admin: 04/12/21 02:16 Dose: 10 units Documented by: Iopamidol (Iopamidol 755 Mg/Ml 500 Ml Multipack Bottle) 100 ml IVPUSH ONETIME ONE Stop: 04/04/21 18:43 Last Admin: 04/04/21 18:44 Dose: 100 ml Documented by: Lorazepam (Lorazepam 2 Mg/Ml Sdv) 0.5 mg IVPUSH ONETIME PRN PRN Reason: Bipap Potassium Chloride (Potassium Chloride 20 Meq Tab.Er) 40 meq PO ONETIME ONE Stop: 04/06/21 12:31 Last Admin: 04/06/21 12:58 Dose: 40 meq Documented by: Potassium Chloride (Potassium Chloride 20 Meq Tab.Er) 40 meq PO ONETIME ONE Stop: 04/08/21 07:50 Last Admin: 04/08/21 08:15 Dose: 40 meq Documented by: Potassium Chloride (Potassium Chloride 20 Meq Tab.Er) 40 meq PO ONETIME ONE Stop: 04/08/21 12:01 Last Admin: 04/08/21 12:24 Dose: 40 meq Documented by: Prednisone (Prednisone 10 Mg Tab) 10 mg PO BEDTIME [facility] Last Admin: 04/07/21 22:28 Dose: 10 mg Documented by: Prednisone (Prednisone 20 Mg Tab) 20 mg PO DAILY [facility] Last Admin: 04/07/21 08:31 Dose: 20 mg Documented by: Tamsulosin HCl (Tamsulosin 0.4 Mg Cap.Er) 0.4 mg PO ONETIME ONE Stop: 04/05/21 19:16 Last Admin: 04/05/21 19:53 Dose: 0.4 mg Documented by: Warfarin Sodium (Warfarin 2 Mg Tab) 4 mg PO ONETIME ONE Stop: 04/05/21 14:01 Last Admin: 04/05/21 14:05 Dose: 4 mg Documented by: Warfarin Sodium (Warfarin 1 Mg Tab) 3 mg PO ONETIME ONE Stop: 04/06/21 14:01 Last Admin: 04/06/21 13:35 Dose: 3 mg Documented by: Warfarin Sodium (Warfarin 2 Mg Tab) 2 mg PO 04/07/21@1400 [facility] Stop: 04/07/21 15:00 Last Admin: 04/07/21 14:21 Dose: 2 mg Documented by: Warfarin Sodium (Warfarin 1 Mg Tab) 1 mg PO 04/08/21@1400 [facility] Stop: 04/08/21 16:00 Last Admin: 04/08/21 13:44 Dose: 1 mg Documented by: Warfarin Sodium (Warfarin 2.5 Mg Tab) 2.5 mg PO DAILY@1400 [facility] Stop: 04/12/21 15:00 Last Admin: 04/12/21 15:04 Dose: 2.5 mg Documented by: - Exam General: Alert, Oriented Lungs: Clear to Auscultation, Normal Respiratory Effort Cardiovascular: Regular Rate, Regular Rhythm GI/Abdominal Exam: Soft, Non-Tender, No Distention Extremities: Non-Tender, Pedal Edema (+1) Skin: Warm, Dry, Intact Neurological: No New Focal Deficit - Patient Data Lab Results Last 24 hrs: Laboratory Results - last 24 hr 04/12/21 04/12/21 04/12/21 Range/Units 05:35 09:26 13:25 WBC (4.0-11.0) K/uL RBC (4.50-5.90) M/uL Hgb (13.0-17.0) g/dL Hct (38.0-50.0) % MCV (80.0-98.0) fL MCH (27.0-32.0) pg MCHC (31.0-37.0) g/dL RDW Std Deviation (28.0-62.0) fl RDW Coeff of Sunny (11.0-15.0) % Plt Count (150-400) K/uL MPV (7.40-12.00) fL Neut % (Auto) (48.0-80.0) % Lymph % (Auto) (16.0-40.0) % [place] % (Auto) (0.0-15.0) % Eos % (Auto) (0.0-7.0) % Baso % (Auto) (0.0-1.5) % Neut # (Auto) (1.4-5.7) K/uL Lymph # (Auto) (0.6-2.4) K/uL [place] # (Auto) (0.0-0.8) K/uL Eos # (Auto) (0.0-0.7) K/uL Baso # (Auto) (0.0-0.1) K/uL Nucleated RBC % /100WBC Nucleated RBCs # K/uL INR Sodium (136-148) mmol/L Potassium (3.5-5.1) mmol/L Chloride (98-107) mmol/L Carbon Dioxide (21.0-32.0) mmol/L BUN (7.0-18.0) mg/dL Creatinine (0.8-1.3) mg/dL Est Cr Clr Drug Dosing mL/min Estimated GFR (MDRD) ml/min Glucose (74-106) mg/dL POC Glucose 242 H 438 H* (70-99) mg/dL Hemoglobin A1c 7.9 H (4.5 - 6.2) % Calcium (8.5-10.1) mg/dL Phosphorus (2.6-4.7) mg/dL Magnesium (1.8-2.4) mg/dL Total Bilirubin (0.2-1.0) mg/dL AST (15-37) IU/L ALT (14-63) IU/L Alkaline Phosphatase (46-116) U/L Total Protein (6.4-8.2) g/dL Albumin (3.4-5.0) g/dL Globulin (2.6-4.0) g/dL Albumin/Globulin Ratio (0.9-1.6) 04/12/21 04/13/21 04/13/21 Range/Units 17:37 06:08 06:08 WBC 15.10 H (4.0-11.0) K/uL RBC 4.05 L (4.50-5.90) M/uL Hgb 13.1 (13.0-17.0) g/dL Hct 42.4 (38.0-50.0) % MCV 104.7 H (80.0-98.0) fL MCH 32.3 H (27.0-32.0) pg MCHC 30.9 L (31.0-37.0) g/dL RDW Std Deviation 52.9 (28.0-62.0) fl RDW Coeff of Sunny 14 (11.0-15.0) % Plt Count 236 (150-400) K/uL MPV 11.70 (7.40-12.00) fL Neut % (Auto) 94.9 H (48.0-80.0) % Lymph % (Auto) 1.8 L (16.0-40.0) % [place] % (Auto) 3.2 (0.0-15.0) % Eos % (Auto) 0.0 (0.0-7.0) % Baso % (Auto) 0.1 (0.0-1.5) % Neut # (Auto) 14.3 H (1.4-5.7) K/uL Lymph # (Auto) 0.3 L (0.6-2.4) K/uL [place] # (Auto) 0.5 (0.0-0.8) K/uL Eos # (Auto) 0.0 (0.0-0.7) K/uL Baso # (Auto) 0.0 (0.0-0.1) K/uL Nucleated RBC % 0.2 /100WBC Nucleated RBCs # 0 K/uL INR Sodium 144 (136-148) mmol/L Potassium 4.6 (3.5-5.1) mmol/L Chloride 100 (98-107) mmol/L Carbon Dioxide 48.8 H (21.0-32.0) mmol/L BUN 33 H (7.0-18.0) mg/dL Creatinine 1.2 (0.8-1.3) mg/dL Est Cr Clr Drug Dosing 60.28 mL/min Estimated GFR (MDRD) 58.3 ml/min Glucose 348 H (74-106) mg/dL POC Glucose 345 H (70-99) mg/dL Hemoglobin A1c (4.5 - 6.2) % Calcium 8.0 L (8.5-10.1) mg/dL Phosphorus 4.1 (2.6-4.7) mg/dL Magnesium 2.5 H (1.8-2.4) mg/dL Total Bilirubin 0.9 (0.2-1.0) mg/dL AST 23 (15-37) IU/L ALT 52 (14-63) IU/L Alkaline Phosphatase 76 (46-116) U/L Total Protein 5.5 L (6.4-8.2) g/dL Albumin 2.3 L (3.4-5.0) g/dL Globulin 3.2 (2.6-4.0) g/dL Albumin/Globulin Ratio 0.7 L (0.9-1.6) 04/13/21 Range/Units 09:12 WBC (4.0-11.0) K/uL RBC (4.50-5.90) M/uL Hgb (13.0-17.0) g/dL Hct (38.0-50.0) % MCV (80.0-98.0) fL MCH (27.0-32.0) pg MCHC (31.0-37.0) g/dL RDW Std Deviation (28.0-62.0) fl RDW Coeff of Sunny (11.0-15.0) % Plt Count (150-400) K/uL MPV (7.40-12.00) fL Neut % (Auto) (48.0-80.0) % Lymph % (Auto) (16.0-40.0) % [place] % (Auto) (0.0-15.0) % Eos % (Auto) (0.0-7.0) % Baso % (Auto) (0.0-1.5) % Neut # (Auto) (1.4-5.7) K/uL Lymph # (Auto) (0.6-2.4) K/uL [place] # (Auto) (0.0-0.8) K/uL Eos # (Auto) (0.0-0.7) K/uL Baso # (Auto) (0.0-0.1) K/uL Nucleated RBC % /100WBC Nucleated RBCs # K/uL INR 1.65 Sodium (136-148) mmol/L Potassium (3.5-5.1) mmol/L Chloride (98-107) mmol/L Carbon Dioxide (21.0-32.0) mmol/L BUN (7.0-18.0) mg/dL Creatinine (0.8-1.3) mg/dL Est Cr Clr Drug Dosing mL/min Estimated GFR (MDRD) ml/min Glucose (74-106) mg/dL POC Glucose (70-99) mg/dL Hemoglobin A1c (4.5 - 6.2) % Calcium (8.5-10.1) mg/dL Phosphorus (2.6-4.7) mg/dL Magnesium (1.8-2.4) mg/dL Total Bilirubin (0.2-1.0) mg/dL AST (15-37) IU/L ALT (14-63) IU/L Alkaline Phosphatase (46-116) U/L Total Protein (6.4-8.2) g/dL Albumin (3.4-5.0) g/dL Globulin (2.6-4.0) g/dL Albumin/Globulin Ratio (0.9-1.6) Result Diagrams: 04/13/21 06:08 04/13/21 06:08 Sepsis Event Note - Evaluation Sepsis Screening Result: Severe Sepsis Risk - Focused Exam Vital Signs: Vital Signs Temp Resp BP Pulse Ox 04/13/21 08:00 36.2 C 12 136/69 94 L 04/13/21 07:10 91 L 04/13/21 07:00 21 H 88 L 04/13/21 06:00 14 92 L 04/13/21 05:00 36.3 C 23 H 140/65 90 L 04/13/21 04:00 15 91 L 04/13/21 03:00 12 93 L 04/13/21 02:00 14 92 L 04/13/21 01:00 12 91 L - Problem List Review Problem List Initiated/Reviewed/Updated: Yes - My Orders Last 24 Hours: My Active Orders 04/13/21 Breakfast ADA Diabetic [[employer] Diet] [DIET] 04/14/21 05:11 CBC WITH AUTO DIFF [HEME] AM COMPREHENSIVE METABOLIC PN,CMP [CHEM] AM 04/14/21 08:55 INR,PT,PROTHROMBIN TIME [COAG] DAILY 04/15/21 08:55 INR,PT,PROTHROMBIN TIME [COAG] DAILY 04/16/21 08:55 INR,PT,PROTHROMBIN TIME [COAG] DAILY 04/17/21 08:55 INR,PT,PROTHROMBIN TIME [COAG] DAILY - Plan Plan:: 80 y/o M admitted for left arm cellulitis who then developed acute on chronic hypoxic respiratory failure. 1. Left arm cellulitis -resolving -Keep arm elevated as much as possible -Continue Zosyn and vancomycin, day 8 2. Acute on chronic hypoxic hypercapnic respiratory failure secondary to pu lmonary edema, pulmonary fibrosis and possible CAP -Continue HFNC -Continue azithromycin, Zosyn and vancomycin -Lasix to 60 mg IV TID, -Continue IV steroids 60 mg every 8 hours -DuoNebs as needed 3. Hyperglycemia due to steroid therapy -siding scale insulin as needed -will switch to diabetic diet 4. Hypothyroidism -Continue levothyroxine 5. History DVT on Coumadin -INR 1.64 today -Appreciate pharmacy's assistance in dosing. VTE prophylaxis: Warfarin GI prophylaxis: Protonix CODE STATUS CPR only, declines intubation if needed. Dispo: 3 days pending improvement
[2021-04-13] MEDS: Azithromycin 250 MG Tab PO SCH (13:47)
[2021-04-13] MEDS: atorvaSTATin 40 MG Tab PO SCH (20:55)
[2021-04-14] MEDS: Budesonide 0.5 MG/2 ML Neb Susp INH SCH ×3 (05:32→21:16)
[2021-04-14] MEDS: Nystatin Topical Powder 15 GM Bottle TOP SCH ×3 (06:06→21:24)
[2021-04-14] MEDS: Piperacillin/Tazobactam 3.375 GM in Sodium Chloride 0.9% 50 ML IV SCH ×3 (06:07→21:14)
[2021-04-14] MEDS: Furosemide 100 MG/10 ML SDV IVPUSH SCH ×3 (06:08→21:13)
[2021-04-14] MEDS: methylPREDNISolone Sodium Succinate 40 MG/1 ML SDV IVPUSH SCH ×3 (06:09→23:21)
[2021-04-14] MEDS: Potassium Chloride 20 MEQ Tab.ER PO SCH ×3 (06:10→21:10)
[2021-04-14] MEDS: Levothyroxine 150 MCG Tab PO SCH (06:33)
[2021-04-14] MEDS: Pantoprazole 40 MG Tab.CR PO SCH (06:34)
[2021-04-14 06:47] LABS: POTASSIUM,K 4.6 mmol/L (3.5-5.1)
[2021-04-14 07:00] LABS: CARBON DIOXIDE,CO2 47.6 mmol/L (21.0-32.0)
--- NOTE | 2021-04-14 08:21 | PCM.PN ---
- General Info Date of Service: 04/14/21 Admission Dx/Problem (Free Text): Admission Diagnosis/Problem Admission Diagnosis/Problem Cellulitis Subjective Update: Reports he is feeling a little bit better today. Continues on high flow nasal cannula on next therapy. Denies any chest pain. Reports he is feeling like the swelling and edema to his upper extremities has improved. Eating and drinking okay but continues to go over on fluid restriction and requesting to have large amounts of sugary foods during the day per nursing. Functional Status: Reports: Pain Controlled, Tolerating Diet, Urinating. Denies: Ambulating - Review of Systems General: Reports: Fatigue HEENT: Reports: No Symptoms. Denies: Headaches, Sore Throat, Visual Changes Pulmonary: Reports: Shortness of Breath, Cough (Nonproductive). Denies: Hemoptysis Cardiovascular: Reports: Dyspnea on Exertion, Edema. Denies: Chest Pain, Palpitations Gastrointestinal: Reports: No Symptoms. Denies: Abdominal Pain, Nausea, Vomiting Genitourinary: Reports: No Symptoms Musculoskeletal: Reports: No Symptoms Skin: Reports: Bruising (Left hand improving), Other (Wound to buttocks) Neurological: Reports: No Symptoms Psychiatric: Reports: No Symptoms - Patient Data Vitals - Most Recent: Last Vital Signs Temp 96.7 F L 04/14/21 04:26 Pulse 100 04/07/21 21:45 Resp 16 04/14/21 07:18 BP 141/79 H 04/14/21 04:26 Pulse Ox 89 L 04/14/21 07:18 Weight - Most Recent: 117.254 kg I&O - Last 24 Hours: Intake & Output 04/13/21 04/14/21 04/14/21 22:59 06:59 14:59 Intake Total 1886 400 Output Total 1800 1270 Balance 86 -870 Lab Results Last 24 Hours: Laboratory Results - last 24 hr 04/13/21 04/13/21 04/13/21 Range/Units 09:12 14:04 17:57 WBC (4.0-11.0) K/uL RBC (4.50-5.90) M/uL Hgb (13.0-17.0) g/dL Hct (38.0-50.0) % MCV (80.0-98.0) fL MCH (27.0-32.0) pg MCHC (31.0-37.0) g/dL RDW Std Deviation (28.0-62.0) fl RDW Coeff of Sunny (11.0-15.0) % Plt Count (150-400) K/uL MPV (7.40-12.00) fL Neut % (Auto) (48.0-80.0) % Lymph % (Auto) (16.0-40.0) % Bremer % (Auto) (0.0-15.0) % Eos % (Auto) (0.0-7.0) % Baso % (Auto) (0.0-1.5) % Neut # (Auto) (1.4-5.7) K/uL Lymph # (Auto) (0.6-2.4) K/uL Bremer # (Auto) (0.0-0.8) K/uL Eos # (Auto) (0.0-0.7) K/uL Baso # (Auto) (0.0-0.1) K/uL Nucleated RBC % /100WBC Nucleated RBCs # K/uL INR 1.65 Sodium (136-148) mmol/L Potassium (3.5-5.1) mmol/L Chloride (98-107) mmol/L Carbon Dioxide (21.0-32.0) mmol/L BUN (7.0-18.0) mg/dL Creatinine (0.8-1.3) mg/dL Est Cr Clr Drug Dosing mL/min Estimated GFR (MDRD) ml/min Glucose (74-106) mg/dL POC Glucose 380 H 354 H (70-99) mg/dL Calcium (8.5-10.1) mg/dL Total Bilirubin (0.2-1.0) mg/dL AST (15-37) IU/L ALT (14-63) IU/L Alkaline Phosphatase (46-116) U/L Total Protein (6.4-8.2) g/dL Albumin (3.4-5.0) g/dL Globulin (2.6-4.0) g/dL Albumin/Globulin Ratio (0.9-1.6) 04/14/21 04/14/21 04/14/21 Range/Units 06:10 06:10 06:10 WBC 14.98 H (4.0-11.0) K/uL RBC 4.11 L (4.50-5.90) M/uL Hgb 13.3 (13.0-17.0) g/dL Hct 42.6 (38.0-50.0) % MCV 103.6 H (80.0-98.0) fL MCH 32.4 H (27.0-32.0) pg MCHC 31.2 (31.0-37.0) g/dL RDW Std Deviation 52.6 (28.0-62.0) fl RDW Coeff of Sunny 14 (11.0-15.0) % Plt Count 229 (150-400) K/uL MPV 11.60 (7.40-12.00) fL Neut % (Auto) 93.9 H (48.0-80.0) % Lymph % (Auto) 2.7 L (16.0-40.0) % Bremer % (Auto) 3.3 (0.0-15.0) % Eos % (Auto) 0.0 (0.0-7.0) % Baso % (Auto) 0.1 (0.0-1.5) % Neut # (Auto) 14.1 H (1.4-5.7) K/uL Lymph # (Auto) 0.4 L (0.6-2.4) K/uL Bremer # (Auto) 0.5 (0.0-0.8) K/uL Eos # (Auto) 0.0 (0.0-0.7) K/uL Baso # (Auto) 0.0 (0.0-0.1) K/uL Nucleated RBC % 0.0 /100WBC Nucleated RBCs # 0 K/uL INR 2.04 Sodium 141 (136-148) mmol/L Potassium 4.6 (3.5-5.1) mmol/L Chloride 99 (98-107) mmol/L Carbon Dioxide 47.6 H (21.0-32.0) mmol/L BUN 36 H (7.0-18.0) mg/dL Creatinine 1.2 (0.8-1.3) mg/dL Est Cr Clr Drug Dosing 60.25 mL/min Estimated GFR (MDRD) 58.3 ml/min Glucose 353 H (74-106) mg/dL POC Glucose (70-99) mg/dL Calcium 8.1 L (8.5-10.1) mg/dL Total Bilirubin 0.9 (0.2-1.0) mg/dL AST 16 (15-37) IU/L ALT 49 (14-63) IU/L Alkaline Phosphatase 76 (46-116) U/L Total Protein 5.4 L (6.4-8.2) g/dL Albumin 2.3 L (3.4-5.0) g/dL Globulin 3.1 (2.6-4.0) g/dL Albumin/Globulin Ratio 0.7 L (0.9-1.6) Med Orders - Current: Current Medications Albuterol/Ipratropium (Albuterol/Ipratropium 3.0-0.5 Mg/3 Ml Neb Soln) 3 ml NEB Q4HRRT PRN PRN Reason: Shortness of Breath Last Admin: 04/05/21 12:07 Dose: 3 ml Documented by: Aspirin (Aspirin 81 Mg Tab.Chew) 81 mg PO DAILY [facility] Last Admin: 04/13/21 09:36 Dose: 81 mg Documented by: Atorvastatin Calcium (Atorvastatin 40 Mg Tab) 40 mg PO BEDTIME [facility] Last Admin: 04/13/21 20:55 Dose: 40 mg Documented by: Azithromycin (Azithromycin 250 Mg Tab) 500 mg PO Q24H [facility] Last Admin: 04/13/21 13:47 Dose: 500 mg Documented by: Bisacodyl (Bisacodyl 10 Mg Supp) 10 mg RECTAL DAILY PRN PRN Reason: if no BM in 2 days Budesonide (Budesonide 0.5 Mg/2 Ml Neb Susp) 1 mg INH TID [facility] Last Admin: 04/14/21 05:32 Dose: 1 mg Documented by: Dextrose/Water (50% Dextrose In Water 50 Ml Syringe) 50 ml IVPUSH ASDIRECTED PRN PRN Reason: Hypoglycemia Docusate Sodium (Docusate Sodium 100 Mg Cap) 100 mg PO DAILY PRN PRN Reason: Constipation Furosemide (Furosemide 100 Mg/10 Ml Sdv) 60 mg IVPUSH TID [facility] Last Admin: 04/14/21 06:08 Dose: 60 mg Documented by: Glucagon (Glucagon,Human Recombinant 1 Mg Vial) 1 mg IM ASDIRECTED PRN PRN Reason: Hypoglycemia Piperacillin Sod/Tazobactam (Sod 3.375 gm/ Sodium Chloride) 50 mls @ 100 mls/hr IV Q8H [facility] Last Admin: 04/14/21 06:07 Dose: 100 mls/hr Documented by: Vancomycin HCl 1.5 gm/ Premix 300 mls @ 200 mls/hr IV Q24H [facility] Last Admin: 04/13/21 11:51 Dose: 200 mls/hr Documented by: Insulin Aspart (Insulin Aspart 100 Units/Ml 3 Ml Pen) 0 unit SUBCUT TIDAC [facility]; Protocol Last Admin: 04/13/21 17:58 Dose: 10 units Documented by: Insulin Aspart (Insulin Aspart 100 Units/Ml 3 Ml Pen) 5 unit SUBCUT TIDAC [facility] Levothyroxine Sodium (Levothyroxine 150 Mcg Tab) 150 mcg PO ACBREAKFAST [facility] Last Admin: 04/14/21 06:33 Dose: 150 mcg Documented by: Methylprednisolone Sodium Succinate (Methylprednisolone Sodium Succinate 40 Mg/1 Ml Sdv) 60 mg IVPUSH Q8H [facility] Last Admin: 04/14/21 06:09 Dose: 60 mg Documented by: Nystatin (Nystatin Topical Powder 15 Gm Bottle) 0 gm TOP TID [facility] Last Admin: 04/14/21 06:06 Dose: 1 applic Documented by: Pantoprazole Sodium (Pantoprazole 40 Mg Tab.Cr) 40 mg PO ACBREAKFAST [facility] Last Admin: 04/14/21 06:34 Dose: 40 mg Documented by: Polyethylene Glycol (Polyethylene Glycol 3350 Powder 17 Gm Packet) 17 gm PO DAILY [facility] Last Admin: 04/13/21 09:37 Dose: Not Given Documented by: Potassium Chloride (Potassium Chloride 20 Meq Tab.Er) 40 meq PO TID [facility] Last Admin: 04/14/21 06:10 Dose: 40 meq Documented by: Sodium Chloride (Sodium Chloride 0.65% Nasal [place] 45 Ml Bottle) 0 ml CADE QID PRN PRN Reason: nasal congestion Vancomycin HCl (Pharmacy To Dose - Vancomycin) 1 dose .XX ASDIRECTED [facility] Warfarin Sodium (Warfarin Ask Dosing) 1 each PO Q24H [facility] Last Admin: 04/13/21 14:10 Dose: 1 each Documented by: Warfarin Sodium (Warfarin 2.5 Mg Tab) 2.5 mg PO DAILY@1400 [facility] Stop: 04/14/21 15:00 Discontinued Medications Albuterol/Ipratropium (Albuterol/Ipratropium 3.0-0.5 Mg/3 Ml Neb Soln) 3 ml INH TID PRN PRN Reason: Shortness of Breath Aspirin (Aspirin 81 Mg Tab.Chew) 324 mg PO ONETIME ONE Stop: 04/04/21 16:13 Last Admin: 04/04/21 16:26 Dose: 324 mg Documented by: Budesonide (Budesonide 0.5 Mg/2 Ml Neb Susp) Confirm Administered Dose 0.5 mg .ROUTE .STK-MED ONE Stop: 04/07/21 06:24 Last Admin: 04/07/21 15:59 Dose: Not Given Documented by: Dextrose/Water (50% Dextrose In Water 50 Ml Syringe) 50 ml IV ASDIRECTED PRN PRN Reason: Hypoglycemia Dextrose/Water (50% Dextrose In Water 50 Ml Syringe) 50 ml IV ASDIRECTED PRN PRN Reason: Hypoglycemia Dextrose/Water (50% Dextrose In Water 50 Ml Syringe) 50 ml IV ASDIRECTED PRN PRN Reason: Hypoglycemia Dextrose/Water (50% Dextrose In Water 50 Ml Syringe) 50 ml IVPUSH ASDIRECTED PRN PRN Reason: Hypoglycemia Docusate Sodium (Docusate Sodium 100 Mg Cap) 100 mg PO DAILY [facility] Last Admin: 04/11/21 09:05 Dose: Not Given Documented by: Enoxaparin Sodium (Enoxaparin 40 Mg/0.4 Ml Syringe) 40 mg SUBCUT Q12HR [facility] Last Admin: 04/07/21 08:32 Dose: 40 mg Documented by: Furosemide (Furosemide 20 Mg/2 Ml Vial) 20 mg IVPUSH ONETIME ONE Stop: 04/04/21 22:18 Last Admin: 04/04/21 23:02 Dose: 20 mg Documented by: Furosemide (Furosemide 40 Mg/4 Ml Vial) 20 mg IVPUSH NOW ONE Stop: 04/05/21 09:07 Last Admin: 04/05/21 09:39 Dose: 20 mg Documented by: Furosemide (Furosemide 40 Mg/4 Ml Vial) 20 mg IVPUSH ONETIME ONE Stop: 04/05/21 17:01 Last Admin: 04/05/21 16:48 Dose: Not Given Documented by: Furosemide (Furosemide 40 Mg/4 Ml Vial) 40 mg IVPUSH DAILY [facility] Last Admin: 04/07/21 08:27 Dose: 40 mg Documented by: Furosemide (Furosemide 20 Mg/2 Ml Vial) Confirm Administered Dose 20 mg .ROUTE .STK-MED ONE Stop: 04/05/21 21:47 Last Admin: 04/05/21 22:10 Dose: Not Given Documented by: Furosemide (Furosemide 40 Mg/4 Ml Vial) 20 mg IVPUSH NOW ONE Stop: 04/05/21 22:00 Last Admin: 04/05/21 22:09 Dose: 20 mg Documented by: Furosemide (Furosemide 40 Mg/4 Ml Vial) 40 mg IVPUSH BIDDIURETIC [facility] Last Admin: 04/08/21 08:15 Dose: 40 mg Documented by: Furosemide (Furosemide 40 Mg/4 Ml Vial) 40 mg IVPUSH NOW ONE Stop: 04/07/21 22:39 Last Admin: 04/07/21 22:45 Dose: 40 mg Documented by: Furosemide (Furosemide 40 Mg/4 Ml Vial) 40 mg IVPUSH TID [facility] Last Admin: 04/10/21 06:37 Dose: 40 mg Documented by: Furosemide (Furosemide 40 Mg/4 Ml Vial) 60 mg IVPUSH TID [facility] Last Admin: 04/11/21 06:18 Dose: 60 mg Documented by: Glucagon (Glucagon,Human Recombinant 1 Mg Vial) 1 mg IM ASDIRECTED PRN PRN Reason: Hypoglycemia Glucagon (Glucagon,Human Recombinant 1 Mg Vial) 1 mg IM ASDIRECTED PRN PRN Reason: Hypoglycemia Glucagon (Glucagon,Human Recombinant 1 Mg Vial) 1 mg IM ASDIRECTED PRN PRN Reason: Hypoglycemia Glucagon (Glucagon,Human Recombinant 1 Mg Vial) 1 mg IM ASDIRECTED PRN PRN Reason: Hypoglycemia Ceftriaxone Sodium/Dextrose 2 (gm/ Premix) 50 mls @ 100 mls/hr IV ONETIME ONE Stop: 04/04/21 17:58 Last Admin: 04/04/21 17:45 Dose: 100 mls/hr Documented by: Piperacillin Sod/Tazobactam (Sod 3.375 gm/ Sodium Chloride) 50 mls @ 100 mls/hr IV ONETIME ONE Stop: 04/04/21 21:32 Last Admin: 04/04/21 21:49 Dose: 100 mls/hr Documented by: Vancomycin HCl 1.5 gm/ Premix 300 mls @ 200 mls/hr IV Q12H [facility] Last Admin: 04/06/21 23:14 Dose: Not Given Documented by: Dexmedetomidine/Sodium (Chloride 400 mcg/ Premix) 100 mls @ 6.084 mls/hr IV T [facility]; Protocol Insulin Aspart (Insulin Aspart 100 Units/Ml 3 Ml Pen) 7 unit SUBCUT ONETIME ONE Stop: 04/11/21 18:30 Last Admin: 04/11/21 18:40 Dose: 7 units Documented by: Insulin Aspart (Insulin Aspart 100 Units/Ml 3 Ml Pen) 5 unit SUBCUT ONETIME ONE Stop: 04/11/21 19:42 Last Admin: 04/11/21 19:50 Dose: 5 units Documented by: Insulin Aspart (Insulin Aspart 100 Units/Ml 10 Ml Vial) 10 unit SUBCUT ONETIME ONE Stop: 04/11/21 22:41 Last Admin: 04/11/21 22:53 Dose: 10 units Documented by: Insulin Aspart (Insulin Aspart 100 Units/Ml 10 Ml Vial) 10 unit SUBCUT ONETIME ONE Stop: 04/12/21 02:11 Last Admin: 04/12/21 02:16 Dose: 10 units Documented by: Iopamidol (Iopamidol 755 Mg/Ml 500 Ml Multipack Bottle) 100 ml IVPUSH ONETIME ONE Stop: 04/04/21 18:43 Last Admin: 04/04/21 18:44 Dose: 100 ml Documented by: Lorazepam (Lorazepam 2 Mg/Ml Sdv) 0.5 mg IVPUSH ONETIME PRN PRN Reason: Bipap Potassium Chloride (Potassium Chloride 20 Meq Tab.Er) 40 meq PO ONETIME ONE Stop: 04/06/21 12:31 Last Admin: 04/06/21 12:58 Dose: 40 meq Documented by: Potassium Chloride (Potassium Chloride 20 Meq Tab.Er) 40 meq PO ONETIME ONE Stop: 04/08/21 07:50 Last Admin: 04/08/21 08:15 Dose: 40 meq Documented by: Potassium Chloride (Potassium Chloride 20 Meq Tab.Er) 40 meq PO ONETIME ONE Stop: 04/08/21 12:01 Last Admin: 04/08/21 12:24 Dose: 40 meq Documented by: Prednisone (Prednisone 10 Mg Tab) 10 mg PO BEDTIME [facility] Last Admin: 04/07/21 22:28 Dose: 10 mg Documented by: Prednisone (Prednisone 20 Mg Tab) 20 mg PO DAILY [facility] Last Admin: 04/07/21 08:31 Dose: 20 mg Documented by: Tamsulosin HCl (Tamsulosin 0.4 Mg Cap.Er) 0.4 mg PO ONETIME ONE Stop: 04/05/21 19:16 Last Admin: 04/05/21 19:53 Dose: 0.4 mg Documented by: Warfarin Sodium (Warfarin 2 Mg Tab) 4 mg PO ONETIME ONE Stop: 04/05/21 14:01 Last Admin: 04/05/21 14:05 Dose: 4 mg Documented by: Warfarin Sodium (Warfarin 1 Mg Tab) 3 mg PO ONETIME ONE Stop: 04/06/21 14:01 Last Admin: 04/06/21 13:35 Dose: 3 mg Documented by: Warfarin Sodium (Warfarin 2 Mg Tab) 2 mg PO 04/07/21@1400 [facility] Stop: 04/07/21 15:00 Last Admin: 04/07/21 14:21 Dose: 2 mg Documented by: Warfarin Sodium (Warfarin 1 Mg Tab) 1 mg PO 04/08/21@1400 [facility] Stop: 04/08/21 16:00 Last Admin: 04/08/21 13:44 Dose: 1 mg Documented by: Warfarin Sodium (Warfarin 2.5 Mg Tab) 2.5 mg PO DAILY@1400 [facility] Stop: 04/12/21 15:00 Last Admin: 04/12/21 15:04 Dose: 2.5 mg Documented by: Warfarin Sodium (Warfarin 1 Mg Tab) 3 mg PO DAILY@1400 [facility] Stop: 04/13/21 15:00 Last Admin: 04/13/21 13:00 Dose: 3 mg Documented by: - Exam Quality Assessment: Supplemental Oxygen (60 L flow 55% FiO2) General: Alert, Oriented, Cooperative, No Acute Distress Lungs: Decreased Breath Sounds, Crackles. No: Wheezing Cardiovascular: Regular Rate, Regular Rhythm, No Murmurs GI/Abdominal Exam: Normal Bowel Sounds, Soft, Non-Tender Extremities: Normal Inspection, Normal Range of Motion, Non-Tender, Pedal Edema (+3 pitting edema noted to upper thighs and waist upper extremity edema significantly improved +1 pitting noted to upper biceps) Skin: Warm, Dry Wound/Incisions: Erythema Improving, Decubitis (Stage I decubitus ulcer to buttocks. Wound care consulted) Neurological: No New Focal Deficit Psy/Mental Status: Alert, Normal Affect, Normal Mood - Patient Data Lab Results Last 24 hrs: Laboratory Results - last 24 hr 04/13/21 04/13/21 04/13/21 Range/Units 09:12 14:04 17:57 WBC (4.0-11.0) K/uL RBC (4.50-5.90) M/uL Hgb (13.0-17.0) g/dL Hct (38.0-50.0) % MCV (80.0-98.0) fL MCH (27.0-32.0) pg MCHC (31.0-37.0) g/dL RDW Std Deviation (28.0-62.0) fl RDW Coeff of Sunny (11.0-15.0) % Plt Count (150-400) K/uL MPV (7.40-12.00) fL Neut % (Auto) (48.0-80.0) % Lymph % (Auto) (16.0-40.0) % [place] % (Auto) (0.0-15.0) % Eos % (Auto) (0.0-7.0) % Baso % (Auto) (0.0-1.5) % Neut # (Auto) (1.4-5.7) K/uL Lymph # (Auto) (0.6-2.4) K/uL [place] # (Auto) (0.0-0.8) K/uL Eos # (Auto) (0.0-0.7) K/uL Baso # (Auto) (0.0-0.1) K/uL Nucleated RBC % /100WBC Nucleated RBCs # K/uL INR 1.65 Sodium (136-148) mmol/L Potassium (3.5-5.1) mmol/L Chloride (98-107) mmol/L Carbon Dioxide (21.0-32.0) mmol/L BUN (7.0-18.0) mg/dL Creatinine (0.8-1.3) mg/dL Est Cr Clr Drug Dosing mL/min Estimated GFR (MDRD) ml/min Glucose (74-106) mg/dL POC Glucose 380 H 354 H (70-99) mg/dL Calcium (8.5-10.1) mg/dL Total Bilirubin (0.2-1.0) mg/dL AST (15-37) IU/L ALT (14-63) IU/L Alkaline Phosphatase (46-116) U/L Total Protein (6.4-8.2) g/dL Albumin (3.4-5.0) g/dL Globulin (2.6-4.0) g/dL Albumin/Globulin Ratio (0.9-1.6) 04/14/21 04/14/21 04/14/21 Range/Units 06:10 06:10 06:10 WBC 14.98 H (4.0-11.0) K/uL RBC 4.11 L (4.50-5.90) M/uL Hgb 13.3 (13.0-17.0) g/dL Hct 42.6 (38.0-50.0) % MCV 103.6 H (80.0-98.0) fL MCH 32.4 H (27.0-32.0) pg MCHC 31.2 (31.0-37.0) g/dL RDW Std Deviation 52.6 (28.0-62.0) fl RDW Coeff of Sunny 14 (11.0-15.0) % Plt Count 229 (150-400) K/uL MPV 11.60 (7.40-12.00) fL Neut % (Auto) 93.9 H (48.0-80.0) % Lymph % (Auto) 2.7 L (16.0-40.0) % [place] % (Auto) 3.3 (0.0-15.0) % Eos % (Auto) 0.0 (0.0-7.0) % Baso % (Auto) 0.1 (0.0-1.5) % Neut # (Auto) 14.1 H (1.4-5.7) K/uL Lymph # (Auto) 0.4 L (0.6-2.4) K/uL [place] # (Auto) 0.5 (0.0-0.8) K/uL Eos # (Auto) 0.0 (0.0-0.7) K/uL Baso # (Auto) 0.0 (0.0-0.1) K/uL Nucleated RBC % 0.0 /100WBC Nucleated RBCs # 0 K/uL INR 2.04 Sodium 141 (136-148) mmol/L Potassium 4.6 (3.5-5.1) mmol/L Chloride 99 (98-107) mmol/L Carbon Dioxide 47.6 H (21.0-32.0) mmol/L BUN 36 H (7.0-18.0) mg/dL Creatinine 1.2 (0.8-1.3) mg/dL Est Cr Clr Drug Dosing 60.25 mL/min Estimated GFR (MDRD) 58.3 ml/min Glucose 353 H (74-106) mg/dL POC Glucose (70-99) mg/dL Calcium 8.1 L (8.5-10.1) mg/dL Total Bilirubin 0.9 (0.2-1.0) mg/dL AST 16 (15-37) IU/L ALT 49 (14-63) IU/L Alkaline Phosphatase 76 (46-116) U/L Total Protein 5.4 L (6.4-8.2) g/dL Albumin 2.3 L (3.4-5.0) g/dL Globulin 3.1 (2.6-4.0) g/dL Albumin/Globulin Ratio 0.7 L (0.9-1.6) Result Diagrams: 04/14/21 06:10 04/14/21 06:10 Sepsis Event Note - Evaluation Sepsis Screening Result: No Definite Risk - Focused Exam Vital Signs: Vital Signs Temp Resp BP Pulse Ox 04/14/21 07:18 16 89 L 04/14/21 06:00 11 L 94 L 04/14/21 05:00 18 95 04/14/21 04:26 96.7 F L 19 141/79 H 93 L 04/14/21 04:00 20 95 04/14/21 03:00 12 95 04/14/21 02:00 14 95 04/14/21 01:00 14 94 L 04/13/21 23:40 14 92 L 04/13/21 23:14 19 149/73 H 95 04/13/21 23:00 13 97 04/13/21 22:00 11 L 94 L 04/13/21 21:00 97.6 F 19 134/60 92 L - Problem List & Annotations (1) Acute on chronic respiratory failure with hypoxia and hypercapnia SNOMED Code(s): 15471475377515 Code(s): J96.21 - ACUTE AND CHRONIC RESPIRATORY FAILURE WITH HYPOXIA; J96.22 - ACUTE AND CHRONIC RESPIRATORY FAILURE WITH HYPERCAPNIA Status: Acute Current Visit: Yes (2) Cellulitis SNOMED Code(s): 165793966 Code(s): L03.90 - CELLULITIS, UNSPECIFIED Status: Acute Current Visit: Yes Qualifiers: Site of cellulitis: extremity Site of cellulitis of extremity: upper extremity Laterality: left Qualified Code(s): L03.114 - Cellulitis of left upper limb (3) Anasarca SNOMED Code(s): 040955165, 592971834 Code(s): R60.1 - GENERALIZED EDEMA Status: Acute Current Visit: Yes (4) Hypoalbuminemia SNOMED Code(s): 190609699 Code(s): E88.09 - OTH DISORDERS OF PLASMA-PROTEIN METABOLISM, NEC Status: Acute Current Visit: Yes (5) Atypical pneumonia SNOMED Code(s): 109278416 Code(s): J18.9 - PNEUMONIA, UNSPECIFIED ORGANISM Status: Acute Current Visit: No (6) Constipation SNOMED Code(s): 07181052 Code(s): K59.00 - CONSTIPATION, UNSPECIFIED Status: Acute Current Visit: No (7) Chronic respiratory failure with hypoxia SNOMED Code(s): 312961111 Code(s): J96.11 - CHRONIC RESPIRATORY FAILURE WITH HYPOXIA Status: Chronic Current Visit: No (8) History of DVT (deep vein thrombosis) SNOMED Code(s): 065117834 Code(s): Z86.718 - PERSONAL HISTORY OF OTHER VENOUS THROMBOSIS AND EMBOLISM Status: Chronic Current Visit: No (9) Hypothyroidism SNOMED Code(s): 76431711 Code(s): E03.9 - HYPOTHYROIDISM, UNSPECIFIED Status: Chronic Current Visit: No (10) Oxygen dependent SNOMED Code(s): 782286859459 Code(s): Z99.81 - DEPENDENCE ON SUPPLEMENTAL OXYGEN Status: Chronic Current Visit: No (11) Pulmonary fibrosis SNOMED Code(s): 09916446 Code(s): J84.10 - PULMONARY FIBROSIS, UNSPECIFIED Status: Chronic Current Visit: No (12) Pulmonary edema SNOMED Code(s): 68837712 Code(s): J81.1 - CHRONIC PULMONARY EDEMA Status: Acute Current Visit: Yes (13) Hyperglycemia, drug-induced SNOMED Code(s): 735055878 Code(s): R73.9 - HYPERGLYCEMIA, UNSPECIFIED; T50.905A - ADVERSE EFFECT OF UNSP DRUG/MEDS/BIOL SUBST, INIT Status: Acute Current Visit: Yes (14) Stage I pressure ulcer of buttock SNOMED Code(s): 40211615315455812, 45476869830634420 Code(s): L89.301 - PRESSURE ULCER OF UNSPECIFIED BUTTOCK, STAGE 1 Status: Acute Current Visit: Yes Qualifiers: Laterality: unspecified laterality Qualified Code(s): L89.301 - Pressure ulcer of unspecified buttock, stage 1 - Problem List Review Problem List Initiated/Reviewed/Updated: Yes - My Orders Last 24 Hours: My Active Orders 04/14/21 08:20 Insulin Aspart [NovoLOG] 5 unit SUBCUT TIDAC - Plan Plan:: 80 y/o M admitted for left arm cellulitis who then developed acute on chronic hypoxic respiratory failure. 1. Left arm cellulitis -resolving, much improved today no further edema to arms. Ecchymosis noted to L hand, which is improving as well. -Keep arm elevated as much as possible -Continue Zosyn and vancomycin, day 10 2. Acute on chronic hypoxic hypercapnic respiratory failure secondary to pulmonary edema, pulmonary fibrosis and possible CAP -Continue HFNC, currently at 60 L flow 55% FiO2 -Continue azithromycin, Zosyn and vancomycin -Lasix to 60 mg IV TID, -Continue IV steroids 60 mg every 8 hours -DuoNebs as needed - Bicarb elevated, steadily increasing. Could be respiratory driven, also consider contraction alkalosis, will dive Acetazolamide 500 mg today and monitor in am. 3. Hyperglycemia due to steroid therapy -Increase sliding scale sliding scale insulin to high -Add 5 units NovoLog to sliding scale at each meal -Continue diabetic diet 4. Hypothyroidism -Continue levothyroxine 5. History DVT on Coumadin -INR 2.04 today -Appreciate pharmacy's assistance in dosing. 6. Stage I decubitus ulcer to buttocks -Nurse reports sloughing of skin patient has been refusing repositioning did re- encourage this to patient and the importance of limiting skin breakdown -Patient becomes extremely short of breath with any type of exertion especially in a chair so patient has been more bedbound -Wound care consulted -Reposition every 2 hours. VTE prophylaxis: Warfarin GI prophylaxis: Protonix CODE STATUS CPR only, declines intubation if needed. Dispo: 3 days pending improvement, discussed with patient the need for goals of care discussion. He understands his ultimate goal of walking out of the hospital and returning to the farm is unrealistic. He is wanting more quality of life but is not wanting aggressive therapies to stop even though it has been explained to him that therapies currently are not improving breathing or oxygenation. Will speak with daughter when she arrives at bedside.
[2021-04-14] MEDS: Polyethylene Glycol 3350 Powder 17 GM Packet PO SCH (08:26)
[2021-04-14] MEDS: Aspirin 81 MG Tab.Chew PO SCH (08:26)
[2021-04-14] MEDS: Insulin Aspart 100 Units/ML 3 ML Pen SUBCUT SCH ×6 (08:37→17:46)
[2021-04-14] MEDS ORDERED: acetaZOLAMIDE 250 MG Tab PO ONE (09:48)
[2021-04-14] MEDS: VANCOmycin 1.5 GM/300 ML 1.5 GM in Premix Bag 1 BAG IV SCH (10:40)
[2021-04-14] MEDS: Azithromycin 250 MG Tab PO SCH (14:00)
[2021-04-14] MEDS ORDERED: Warfarin 2.5 MG Tab PO SCH (14:00)
[2021-04-14] MEDS: atorvaSTATin 40 MG Tab PO SCH (21:09)
[2021-04-15] MEDS: Budesonide 0.5 MG/2 ML Neb Susp INH SCH ×3 (05:49→21:36)
[2021-04-15 06:15] LABS: CARBON DIOXIDE,CO2 41.3 mmol/L (21.0-32.0); POTASSIUM,K 4.2 mmol/L (3.5-5.1)
[2021-04-15] MEDS: Levothyroxine 150 MCG Tab PO SCH (06:48)
[2021-04-15] MEDS: methylPREDNISolone Sodium Succinate 40 MG/1 ML SDV IVPUSH SCH ×3 (06:48→21:22)
[2021-04-15] MEDS: Pantoprazole 40 MG Tab.CR PO SCH (06:48)
[2021-04-15] MEDS: Potassium Chloride 20 MEQ Tab.ER PO SCH ×3 (06:48→21:20)
[2021-04-15] MEDS: Piperacillin/Tazobactam 3.375 GM in Sodium Chloride 0.9% 50 ML IV SCH ×3 (06:49→21:21)
[2021-04-15] MEDS: Nystatin Topical Powder 15 GM Bottle TOP SCH ×3 (06:49→21:21)
[2021-04-15] MEDS: Furosemide 100 MG/10 ML SDV IVPUSH SCH ×3 (06:49→21:20)
--- NOTE | 2021-04-15 07:56 | PCM.PN ---
- General Info Date of Service: 04/15/21 Admission Dx/Problem (Free Text): Admission Diagnosis/Problem Admission Diagnosis/Problem Cellulitis Subjective Update: Doing well this morning, resting. Reports breathing is a little better. Denies chest pain or SOB. Continues to go over fluid restriction, urged to continue to limit fluids. Functional Status: Reports: Pain Controlled, Tolerating Diet, Urinating. Denies: Ambulating - Review of Systems General: Reports: Weakness HEENT: Reports: No Symptoms. Denies: Headaches, Sore Throat, Visual Changes Pulmonary: Reports: Shortness of Breath, Cough. Denies: Hemoptysis, Wheezing Cardiovascular: Reports: Dyspnea on Exertion, Edema. Denies: Chest Pain, Palpitations Gastrointestinal: Reports: No Symptoms. Denies: Abdominal Pain, Nausea, Vomiting Genitourinary: Reports: No Symptoms. Denies: Dysuria, Frequency, Burning Musculoskeletal: Reports: No Symptoms Skin: Reports: No Symptoms Neurological: Reports: No Symptoms Psychiatric: Reports: No Symptoms - Patient Data Vitals - Most Recent: Last Vital Signs Temp 97.1 F 04/15/21 04:00 Pulse 100 04/07/21 21:45 Resp 20 04/15/21 07:00 BP 136/66 04/15/21 04:00 Pulse Ox 94 L 04/15/21 07:00 Weight - Most Recent: 251.6 kg I&O - Last 24 Hours: Intake & Output 04/14/21 04/15/21 04/15/21 22:59 06:59 14:59 Intake Total 1886 447 Output Total 1780 1690 Balance 106 -1243 Lab Results Last 24 Hours: Laboratory Results - last 24 hr 04/14/21 04/14/21 04/14/21 Range/Units 08:33 11:48 17:37 WBC (4.0-11.0) K/uL RBC (4.50-5.90) M/uL Hgb (13.0-17.0) g/dL Hct (38.0-50.0) % MCV (80.0-98.0) fL MCH (27.0-32.0) pg MCHC (31.0-37.0) g/dL RDW Std Deviation (28.0-62.0) fl RDW Coeff of Sunny (11.0-15.0) % Plt Count (150-400) K/uL MPV (7.40-12.00) fL Neut % (Auto) (48.0-80.0) % Lymph % (Auto) (16.0-40.0) % [place] % (Auto) (0.0-15.0) % Eos % (Auto) (0.0-7.0) % Baso % (Auto) (0.0-1.5) % Neut # (Auto) (1.4-5.7) K/uL Lymph # (Auto) (0.6-2.4) K/uL [place] # (Auto) (0.0-0.8) K/uL Eos # (Auto) (0.0-0.7) K/uL Baso # (Auto) (0.0-0.1) K/uL Nucleated RBC % /100WBC Nucleated RBCs # K/uL INR Sodium (136-148) mmol/L Potassium (3.5-5.1) mmol/L Chloride (98-107) mmol/L Carbon Dioxide (21.0-32.0) mmol/L BUN (7.0-18.0) mg/dL Creatinine (0.8-1.3) mg/dL Est Cr Clr Drug Dosing mL/min Estimated GFR (MDRD) ml/min Glucose (74-106) mg/dL POC Glucose 329 H 359 H 300 H (70-99) mg/dL Calcium (8.5-10.1) mg/dL Magnesium (1.8-2.4) mg/dL 04/15/21 04/15/21 04/15/21 Range/Units 04:53 04:53 04:53 WBC 16.76 H (4.0-11.0) K/uL RBC 4.28 L (4.50-5.90) M/uL Hgb 13.8 (13.0-17.0) g/dL Hct 43.8 (38.0-50.0) % MCV 102.3 H (80.0-98.0) fL MCH 32.2 H (27.0-32.0) pg MCHC 31.5 (31.0-37.0) g/dL RDW Std Deviation 51.5 (28.0-62.0) fl RDW Coeff of Sunny 14 (11.0-15.0) % Plt Count 231 (150-400) K/uL MPV 12.10 H (7.40-12.00) fL Neut % (Auto) 94.7 H (48.0-80.0) % Lymph % (Auto) 2.1 L (16.0-40.0) % [place] % (Auto) 3.1 (0.0-15.0) % Eos % (Auto) 0.0 (0.0-7.0) % Baso % (Auto) 0.1 (0.0-1.5) % Neut # (Auto) 15.9 H (1.4-5.7) K/uL Lymph # (Auto) 0.4 L (0.6-2.4) K/uL [place] # (Auto) 0.5 (0.0-0.8) K/uL Eos # (Auto) 0.0 (0.0-0.7) K/uL Baso # (Auto) 0.0 (0.0-0.1) K/uL Nucleated RBC % 0.0 /100WBC Nucleated RBCs # 0 K/uL INR 2.14 Sodium 140 (136-148) mmol/L Potassium 4.2 (3.5-5.1) mmol/L Chloride 100 (98-107) mmol/L Carbon Dioxide 41.3 H (21.0-32.0) mmol/L BUN 39 H (7.0-18.0) mg/dL Creatinine 1.2 (0.8-1.3) mg/dL Est Cr Clr Drug Dosing 60.25 mL/min Estimated GFR (MDRD) 58.3 ml/min Glucose 313 H (74-106) mg/dL POC Glucose (70-99) mg/dL Calcium 7.9 L (8.5-10.1) mg/dL Magnesium 2.9 H (1.8-2.4) mg/dL Med Orders - Current: Current Medications Albuterol/Ipratropium (Albuterol/Ipratropium 3.0-0.5 Mg/3 Ml Neb Soln) 3 ml NEB Q4HRRT PRN PRN Reason: Shortness of Breath Last Admin: 04/05/21 12:07 Dose: 3 ml Documented by: Aspirin (Aspirin 81 Mg Tab.Chew) 81 mg PO DAILY SUJATHA Last Admin: 04/14/21 08:26 Dose: 81 mg Documented by: Atorvastatin Calcium (Atorvastatin 40 Mg Tab) 40 mg PO BEDTIME [facility] Last Admin: 04/14/21 21:09 Dose: 40 mg Documented by: Azithromycin (Azithromycin 250 Mg Tab) 500 mg PO Q24H [facility] Last Admin: 04/14/21 14:00 Dose: 500 mg Documented by: Bisacodyl (Bisacodyl 10 Mg Supp) 10 mg RECTAL DAILY PRN PRN Reason: if no BM in 2 days Budesonide (Budesonide 0.5 Mg/2 Ml Neb Susp) 1 mg INH TID [facility] Last Admin: 04/15/21 05:49 Dose: 1 mg Documented by: Dextrose/Water (50% Dextrose In Water 50 Ml Syringe) 50 ml IVPUSH ASDIRECTED PRN PRN Reason: Hypoglycemia Docusate Sodium (Docusate Sodium 100 Mg Cap) 100 mg PO DAILY PRN PRN Reason: Constipation Furosemide (Furosemide 100 Mg/10 Ml Sdv) 60 mg IVPUSH TID [facility] Last Admin: 04/15/21 06:49 Dose: 60 mg Documented by: Glucagon (Glucagon,Human Recombinant 1 Mg Vial) 1 mg IM ASDIRECTED PRN PRN Reason: Hypoglycemia Piperacillin Sod/Tazobactam (Sod 3.375 gm/ Sodium Chloride) 50 mls @ 100 mls/hr IV Q8H [facility] Last Admin: 04/15/21 06:49 Dose: 100 mls/hr Documented by: Vancomycin HCl 1.5 gm/ Premix 300 mls @ 200 mls/hr IV Q24H [facility] Last Admin: 04/14/21 10:40 Dose: 200 mls/hr Documented by: Insulin Aspart (Insulin Aspart 100 Units/Ml 3 Ml Pen) 0 unit SUBCUT TIDAC [facility]; Protocol Last Admin: 04/14/21 17:45 Dose: 12 units Documented by: Insulin Aspart (Insulin Aspart 100 Units/Ml 3 Ml Pen) 5 unit SUBCUT TIDAC [facility] Last Admin: 04/14/21 17:46 Dose: 5 units Documented by: Levothyroxine Sodium (Levothyroxine 150 Mcg Tab) 150 mcg PO ACBREAKFAST [facility] Last Admin: 04/15/21 06:48 Dose: 150 mcg Documented by: Methylprednisolone Sodium Succinate (Methylprednisolone Sodium Succinate 40 Mg/1 Ml Sdv) 60 mg IVPUSH Q8H [facility] Last Admin: 04/15/21 06:48 Dose: 60 mg Documented by: Nystatin (Nystatin Topical Powder 15 Gm Bottle) 0 gm TOP TID [facility] Last Admin: 04/15/21 06:49 Dose: 1 applic Documented by: Pantoprazole Sodium (Pantoprazole 40 Mg Tab.Cr) 40 mg PO ACBREAKFAST [facility] Last Admin: 04/15/21 06:48 Dose: 40 mg Documented by: Polyethylene Glycol (Polyethylene Glycol 3350 Powder 17 Gm Packet) 17 gm PO DAILY [facility] Last Admin: 04/14/21 08:26 Dose: Not Given Documented by: Potassium Chloride (Potassium Chloride 20 Meq Tab.Er) 40 meq PO TID [facility] Last Admin: 04/15/21 06:48 Dose: 40 meq Documented by: Sodium Chloride (Sodium Chloride 0.65% Nasal [place] 45 Ml Bottle) 0 ml CADE QID PRN PRN Reason: nasal congestion Vancomycin HCl (Pharmacy To Dose - Vancomycin) 1 dose .XX ASDIRECTED [facility] Warfarin Sodium (Warfarin Ask Dosing) 1 each PO Q24H [facility] Last Admin: 04/14/21 14:01 Dose: 1 each Documented by: Warfarin Sodium (Warfarin 2.5 Mg Tab) 2.5 mg PO DAILY@1400 [facility] Stop: 04/15/21 15:00 Discontinued Medications Acetazolamide (Acetazolamide 250 Mg Tab) 500 mg PO ONETIME ONE Stop: 04/14/21 09:49 Last Admin: 04/14/21 10:40 Dose: 500 mg Documented by: Albuterol/Ipratropium (Albuterol/Ipratropium 3.0-0.5 Mg/3 Ml Neb Soln) 3 ml INH TID PRN PRN Reason: Shortness of Breath Aspirin (Aspirin 81 Mg Tab.Chew) 324 mg PO ONETIME ONE Stop: 04/04/21 16:13 Last Admin: 04/04/21 16:26 Dose: 324 mg Documented by: Budesonide (Budesonide 0.5 Mg/2 Ml Neb Susp) Confirm Administered Dose 0.5 mg .ROUTE .STK-MED ONE Stop: 04/07/21 06:24 Last Admin: 04/07/21 15:59 Dose: Not Given Documented by: Dextrose/Water (50% Dextrose In Water 50 Ml Syringe) 50 ml IV ASDIRECTED PRN PRN Reason: Hypoglycemia Dextrose/Water (50% Dextrose In Water 50 Ml Syringe) 50 ml IV ASDIRECTED PRN PRN Reason: Hypoglycemia Dextrose/Water (50% Dextrose In Water 50 Ml Syringe) 50 ml IV ASDIRECTED PRN PRN Reason: Hypoglycemia Dextrose/Water (50% Dextrose In Water 50 Ml Syringe) 50 ml IVPUSH ASDIRECTED PRN PRN Reason: Hypoglycemia Docusate Sodium (Docusate Sodium 100 Mg Cap) 100 mg PO DAILY [facility] Last Admin: 04/11/21 09:05 Dose: Not Given Documented by: Enoxaparin Sodium (Enoxaparin 40 Mg/0.4 Ml Syringe) 40 mg SUBCUT Q12HR [facility] Last Admin: 04/07/21 08:32 Dose: 40 mg Documented by: Furosemide (Furosemide 20 Mg/2 Ml Vial) 20 mg IVPUSH ONETIME ONE Stop: 04/04/21 22:18 Last Admin: 04/04/21 23:02 Dose: 20 mg Documented by: Furosemide (Furosemide 40 Mg/4 Ml Vial) 20 mg IVPUSH NOW ONE Stop: 04/05/21 09:07 Last Admin: 04/05/21 09:39 Dose: 20 mg Documented by: Furosemide (Furosemide 40 Mg/4 Ml Vial) 20 mg IVPUSH ONETIME ONE Stop: 04/05/21 17:01 Last Admin: 04/05/21 16:48 Dose: Not Given Documented by: Furosemide (Furosemide 40 Mg/4 Ml Vial) 40 mg IVPUSH DAILY [facility] Last Admin: 04/07/21 08:27 Dose: 40 mg Documented by: Furosemide (Furosemide 20 Mg/2 Ml Vial) Confirm Administered Dose 20 mg .ROUTE .STK-MED ONE Stop: 04/05/21 21:47 Last Admin: 04/05/21 22:10 Dose: Not Given Documented by: Furosemide (Furosemide 40 Mg/4 Ml Vial) 20 mg IVPUSH NOW ONE Stop: 04/05/21 22:00 Last Admin: 04/05/21 22:09 Dose: 20 mg Documented by: Furosemide (Furosemide 40 Mg/4 Ml Vial) 40 mg IVPUSH BIDDIURETIC [facility] Last Admin: 04/08/21 08:15 Dose: 40 mg Documented by: Furosemide (Furosemide 40 Mg/4 Ml Vial) 40 mg IVPUSH NOW ONE Stop: 04/07/21 22:39 Last Admin: 05/17/21 22:45 Dose: 40 mg Documented by: Furosemide (Furosemide 40 Mg/4 Ml Vial) 40 mg IVPUSH TID [facility] Last Admin: 04/10/21 06:37 Dose: 40 mg Documented by: Furosemide (Furosemide 40 Mg/4 Ml Vial) 60 mg IVPUSH TID [facility] Last Admin: 04/11/21 06:18 Dose: 60 mg Documented by: Glucagon (Glucagon,Human Recombinant 1 Mg Vial) 1 mg IM ASDIRECTED PRN PRN Reason: Hypoglycemia Glucagon (Glucagon,Human Recombinant 1 Mg Vial) 1 mg IM ASDIRECTED PRN PRN Reason: Hypoglycemia Glucagon (Glucagon,Human Recombinant 1 Mg Vial) 1 mg IM ASDIRECTED PRN PRN Reason: Hypoglycemia Glucagon (Glucagon,Human Recombinant 1 Mg Vial) 1 mg IM ASDIRECTED PRN PRN Reason: Hypoglycemia Ceftriaxone Sodium/Dextrose 2 (gm/ Premix) 50 mls @ 100 mls/hr IV ONETIME ONE Stop: 04/04/21 17:58 Last Admin: 04/04/21 17:45 Dose: 100 mls/hr Documented by: Piperacillin Sod/Tazobactam (Sod 3.375 gm/ Sodium Chloride) 50 mls @ 100 mls/hr IV ONETIME ONE Stop: 04/04/21 21:32 Last Admin: 04/04/21 21:49 Dose: 100 mls/hr Documented by: Vancomycin HCl 1.5 gm/ Premix 300 mls @ 200 mls/hr IV Q12H [facility] Last Admin: 04/06/21 23:14 Dose: Not Given Documented by: Dexmedetomidine/Sodium (Chloride 400 mcg/ Premix) 100 mls @ 6.084 mls/hr IV TITRATE [facility]; Protocol Insulin Aspart (Insulin Aspart 100 Units/Ml 3 Ml Pen) 7 unit SUBCUT ONETIME ONE Stop: 04/11/21 18:30 Last Admin: 04/11/21 18:40 Dose: 7 units Documented by: Insulin Aspart (Insulin Aspart 100 Units/Ml 3 Ml Pen) 5 unit SUBCUT ONETIME ONE Stop: 04/11/21 19:42 Last Admin: 04/11/21 19:50 Dose: 5 units Documented by: Insulin Aspart (Insulin Aspart 100 Units/Ml 10 Ml Vial) 10 unit SUBCUT ONETIME ONE Stop: 04/11/21 22:41 Last Admin: 04/11/21 22:53 Dose: 10 units Documented by: Insulin Aspart (Insulin Aspart 100 Units/Ml 10 Ml Vial) 10 unit SUBCUT ONETIME ONE Stop: 04/12/21 02:11 Last Admin: 04/12/21 02:16 Dose: 10 units Documented by: Iopamidol (Iopamidol 755 Mg/Ml 500 Ml Multipack Bottle) 100 ml IVPUSH ONETIME ONE Stop: 04/04/21 18:43 Last Admin: 04/04/21 18:44 Dose: 100 ml Documented by: Lorazepam (Lorazepam 2 Mg/Ml Sdv) 0.5 mg IVPUSH ONETIME PRN PRN Reason: Bipap Potassium Chloride (Potassium Chloride 20 Meq Tab.Er) 40 meq PO ONETIME ONE Stop: 04/06/21 12:31 Last Admin: 04/06/21 12:58 Dose: 40 meq Documented by: Potassium Chloride (Potassium Chloride 20 Meq Tab.Er) 40 meq PO ONETIME ONE Stop: 04/08/21 07:50 Last Admin: 04/08/21 08:15 Dose: 40 meq Documented by: Potassium Chloride (Potassium Chloride 20 Meq Tab.Er) 40 meq PO ONETIME ONE Stop: 04/08/21 12:01 Last Admin: 04/08/21 12:24 Dose: 40 meq Documented by: Prednisone (Prednisone 10 Mg Tab) 10 mg PO BEDTIME [facility] Last Admin: 04/07/21 22:28 Dose: 10 mg Documented by: Prednisone (Prednisone 20 Mg Tab) 20 mg PO DAILY [facility] Last Admin: 04/07/21 08:31 Dose: 20 mg Documented by: Tamsulosin HCl (Tamsulosin 0.4 Mg Cap.Er) 0.4 mg PO ONETIME ONE Stop: 04/05/21 19:16 Last Admin: 04/05/21 19:53 Dose: 0.4 mg Documented by: Warfarin Sodium (Warfarin 2 Mg Tab) 4 mg PO ONETIME ONE Stop: 04/05/21 14:01 Last Admin: 04/05/21 14:05 Dose: 4 mg Documented by: Warfarin Sodium (Warfarin 1 Mg Tab) 3 mg PO ONETIME ONE Stop: 04/06/21 14:01 Last Admin: 04/06/21 13:35 Dose: 3 mg Documented by: Warfarin Sodium (Warfarin 2 Mg Tab) 2 mg PO 04/07/21@1400 [facility] Stop: 04/07/21 15:00 Last Admin: 04/07/21 14:21 Dose: 2 mg Documented by: Warfarin Sodium (Warfarin 1 Mg Tab) 1 mg PO 04/08/21@1400 [facility] Stop: 04/08/21 16:00 Last Admin: 04/08/21 13:44 Dose: 1 mg Documented by: Warfarin Sodium (Warfarin 2.5 Mg Tab) 2.5 mg PO DAILY@1400 SUJATHA Stop: 04/12/21 15:00 Last Admin: 04/12/21 15:04 Dose: 2.5 mg Documented by: Warfarin Sodium (Warfarin 1 Mg Tab) 3 mg PO DAILY@1400 SUJATHA Stop: 04/13/21 15:00 Last Admin: 04/13/21 13:00 Dose: 3 mg Documented by: Warfarin Sodium (Warfarin 2.5 Mg Tab) 2.5 mg PO DAILY@1400 [facility] Stop: 04/14/21 15:00 Last Admin: 04/14/21 13:59 Dose: 2.5 mg Documented by: - Exam Quality Assessment: Supplemental Oxygen (remains on HFNC, 45 L flow 50% FIO2), DVT Prophylaxis General: Alert, Oriented, Cooperative, No Acute Distress Lungs: Decreased Breath Sounds (bilateral), Crackles Cardiovascular: Regular Rate, Regular Rhythm GI/Abdominal Exam: Normal Bowel Sounds, Soft, Non-Tender Extremities: Normal Inspection, Normal Range of Motion, Non-Tender, Pedal Edema (+1 lower extremities and slowing increases to +3 proximally to thighs and pelvis. arms +1 pitting) Skin: Warm, Dry Wound/Incisions: Healing Well Neurological: No New Focal Deficit Psy/Mental Status: Alert, Normal Affect, Normal Mood - Patient Data Lab Results Last 24 hrs: Laboratory Results - last 24 hr 04/14/21 04/14/21 04/14/21 Range/Units 08:33 11:48 17:37 WBC (4.0-11.0) K/uL RBC (4.50-5.90) M/uL Hgb (13.0-17.0) g/dL Hct (38.0-50.0) % MCV (80.0-98.0) fL MCH (27.0-32.0) pg MCHC (31.0-37.0) g/dL RDW Std Deviation (28.0-62.0) fl RDW Coeff of Sunny (11.0-15.0) % Plt Count (150-400) K/uL MPV (7.40-12.00) fL Neut % (Auto) (48.0-80.0) % Lymph % (Auto) (16.0-40.0) % [place] % (Auto) (0.0-15.0) % Eos % (Auto) (0.0-7.0) % Baso % (Auto) (0.0-1.5) % Neut # (Auto) (1.4-5.7) K/uL Lymph # (Auto) (0.6-2.4) K/uL [place] # (Auto) (0.0-0.8) K/uL Eos # (Auto) (0.0-0.7) K/uL Baso # (Auto) (0.0-0.1) K/uL Nucleated RBC % /100WBC Nucleated RBCs # K/uL INR Sodium (136-148) mmol/L Potassium (3.5-5.1) mmol/L Chloride (98-107) mmol/L Carbon Dioxide (21.0-32.0) mmol/L BUN (7.0-18.0) mg/dL Creatinine (0.8-1.3) mg/dL Est Cr Clr Drug Dosing mL/min Estimated GFR (MDRD) ml/min Glucose (74-106) mg/dL POC Glucose 329 H 359 H 300 H (70-99) mg/dL Calcium (8.5-10.1) mg/dL Magnesium (1.8-2.4) mg/dL 04/15/21 04/15/21 04/15/21 Range/Units 04:53 04:53 04:53 WBC 16.76 H (4.0-11.0) K/uL RBC 4.28 L (4.50-5.90) M/uL Hgb 13.8 (13.0-17.0) g/dL Hct 43.8 (38.0-50.0) % MCV 102.3 H (80.0-98.0) fL MCH 32.2 H (27.0-32.0) pg MCHC 31.5 (31.0-37.0) g/dL RDW Std Deviation 51.5 (28.0-62.0) fl RDW Coeff of Sunny 14 (11.0-15.0) % Plt Count 231 (150-400) K/uL MPV 12.10 H (7.40-12.00) fL Neut % (Auto) 94.7 H (48.0-80.0) % Lymph % (Auto) 2.1 L (16.0-40.0) % [place] % (Auto) 3.1 (0.0-15.0) % Eos % (Auto) 0.0 (0.0-7.0) % Baso % (Auto) 0.1 (0.0-1.5) % Neut # (Auto) 15.9 H (1.4-5.7) K/uL Lymph # (Auto) 0.4 L (0.6-2.4) K/uL [place] # (Auto) 0.5 (0.0-0.8) K/uL Eos # (Auto) 0.0 (0.0-0.7) K/uL Baso # (Auto) 0.0 (0.0-0.1) K/uL Nucleated RBC % 0.0 /100WBC Nucleated RBCs # 0 K/uL INR 2.14 Sodium 140 (136-148) mmol/L Potassium 4.2 (3.5-5.1) mmol/L Chloride 100 (98-107) mmol/L Carbon Dioxide 41.3 H (21.0-32.0) mmol/L BUN 39 H (7.0-18.0) mg/dL Creatinine 1.2 (0.8-1.3) mg/dL Est Cr Clr Drug Dosing 60.25 mL/min Estimated GFR (MDRD) 58.3 ml/min Glucose 313 H (74-106) mg/dL POC Glucose (70-99) mg/dL Calcium 7.9 L (8.5-10.1) mg/dL Magnesium 2.9 H (1.8-2.4) mg/dL Result Diagrams: 04/15/21 04:53 04/15/21 04:53 Sepsis Event Note - Evaluation Sepsis Screening Result: No Definite Risk - Focused Exam Vital Signs: Vital Signs Temp Resp BP Pulse Ox 04/15/21 07:00 20 94 L 04/15/21 06:00 14 89 L 04/15/21 05:00 16 90 L 04/15/21 04:00 97.1 F 22 H 136/66 93 L 04/15/21 03:00 15 91 L 04/15/21 02:00 11 L 92 L 04/15/21 01:00 15 93 L 04/15/21 00:00 96.8 F L 20 140/71 93 L 04/14/21 23:00 16 91 L 04/14/21 22:00 14 94 L 04/14/21 21:00 97.1 F 19 127/72 91 L 04/14/21 20:00 17 92 L - Problem List & Annotations (1) Acute on chronic respiratory failure with hypoxia and hypercapnia SNOMED Code(s): 24975852890608 Code(s): J96.21 - ACUTE AND CHRONIC RESPIRATORY FAILURE WITH HYPOXIA; J96.22 - ACUTE AND CHRONIC RESPIRATORY FAILURE WITH HYPERCAPNIA Status: Acute Current Visit: Yes (2) Cellulitis SNOMED Code(s): 435147585 Code(s): L03.90 - CELLULITIS, UNSPECIFIED Status: Acute Current Visit: Yes Qualifiers: Site of cellulitis: extremity Site of cellulitis of extremity: upper extremity Laterality: left Qualified Code(s): L03.114 - Cellulitis of left upper limb (3) Anasarca SNOMED Code(s): 949492294, 642747812 Code(s): R60.1 - GENERALIZED EDEMA Status: Acute Current Visit: Yes (4) Hypoalbuminemia SNOMED Code(s): 699113230 Code(s): E88.09 - OTH DISORDERS OF PLASMA-PROTEIN METABOLISM, NEC Status: Acute Current Visit: Yes (5) Atypical pneumonia SNOMED Code(s): 163530366 Code(s): J18.9 - PNEUMONIA, UNSPECIFIED ORGANISM Status: Acute Current Visit: No (6) Constipation SNOMED Code(s): 58379205 Code(s): K59.00 - CONSTIPATION, UNSPECIFIED Status: Acute Current Visit: No (7) Chronic respiratory failure with hypoxia SNOMED Code(s): 047529234 Code(s): J96.11 - CHRONIC RESPIRATORY FAILURE WITH HYPOXIA Status: Chronic Current Visit: No (8) History of DVT (deep vein thrombosis) SNOMED Code(s): 459154321 Code(s): Z86.718 - PERSONAL HISTORY OF OTHER VENOUS THROMBOSIS AND EMBOLISM Status: Chronic Current Visit: No (9) Hypothyroidism SNOMED Code(s): 88803379 Code(s): E03.9 - HYPOTHYROIDISM, UNSPECIFIED Status: Chronic Current Visit: No (10) Oxygen dependent SNOMED Code(s): 055816260036 Code(s): Z99.81 - DEPENDENCE ON SUPPLEMENTAL OXYGEN Status: Chronic Current Visit: No (11) Pulmonary fibrosis SNOMED Code(s): 63730567 Code(s): J84.10 - PULMONARY FIBROSIS, UNSPECIFIED Status: Chronic Current Visit: No (12) Pulmonary edema SNOMED Code(s): 65981947 Code(s): J81.1 - CHRONIC PULMONARY EDEMA Status: Acute Current Visit: Yes (13) Hyperglycemia, drug-induced SNOMED Code(s): 882657590 Code(s): R73.9 - HYPERGLYCEMIA, UNSPECIFIED; T50.905A - ADVERSE EFFECT OF UNSP DRUG/MEDS/BIOL SUBST, INIT Status: Acute Current Visit: Yes (14) Stage I pressure ulcer of buttock SNOMED Code(s): 67808774659122380, 06794987010356654 Code(s): L89.301 - PRESSURE ULCER OF UNSPECIFIED BUTTOCK, STAGE 1 Status: Acute Current Visit: Yes Qualifiers: Laterality: unspecified laterality Qualified Code(s): L89.301 - Pressure ulcer of unspecified buttock, stage 1 - Problem List Review Problem List Initiated/Reviewed/Updated: Yes - My Orders Last 24 Hours: My Active Orders 04/14/21 08:20 Insulin Aspart [NovoLOG] 5 unit SUBCUT TIDAC 04/14/21 09:25 Consult to Wound Care Services [CONS] Routine 04/14/21 11:25 Turn and Reposition [RC] Q2H 04/16/21 05:11 BASIC METABOLIC PANEL,BMP [CHEM] AM CBC WITH AUTO DIFF [HEME] AM INR,PT,PROTHROMBIN TIME [COAG] AM MAGNESIUM [CHEM] AM 04/17/21 05:11 BASIC METABOLIC PANEL,BMP [CHEM] AM CBC WITH AUTO DIFF [HEME] AM INR,PT,PROTHROMBIN TIME [COAG] AM MAGNESIUM [CHEM] AM 04/18/21 05:11 BASIC METABOLIC PANEL,BMP [CHEM] AM CBC WITH AUTO DIFF [HEME] AM INR,PT,PROTHROMBIN TIME [COAG] AM MAGNESIUM [CHEM] AM - Plan Plan:: 80 y/o M admitted for left arm cellulitis who then developed acute on chronic hypoxic respiratory failure. 1. Left arm cellulitis -resolving, much improved today no further edema to arms. Ecchymosis noted to L hand, which is improving as well. -Keep arm elevated as much as possible -Continue Zosyn and vancomycin, day 11 2. Acute on chronic hypoxic hypercapnic respiratory failure secondary to pulmonary edema, pulmonary fibrosis and possible CAP -Continue HFNC, currently at 45 L flow 50% FiO2 -Continue azithromycin, Zosyn and vancomycin -Lasix to 60 mg IV TID, -Decrease IV steroids to 40 mg every 8 hours -DuoNebs as needed - Bicarb improved with Acetazolamide yesterday, monitor in am. 3. Hyperglycemia due to steroid therapy -SSI high -Continue 5 units NovoLog to sliding scale at each meal -Continue diabetic diet - Hoping decrease in steroids helps blood sugars 4. Hypothyroidism -Continue levothyroxine 5. History DVT on Coumadin -INR 2.14 today -Appreciate pharmacy's assistance in dosing. 6. Stage I decubitus ulcer to buttocks -Nurse reports sloughing of skin patient has been refusing repositioning did re- encourage this to patient and the importance of limiting skin breakdown -Patient becomes extremely short of breath with any type of exertion especially in a chair so patient has been more bedbound -Wound care consulted -Reposition every 2 hours. - PT to consult to help with activity level and reconditioning. VTE prophylaxis: Warfarin GI prophylaxis: Protonix CODE STATUS CPR only, declines intubation if needed. Dispo: 3 days pending improvement. Continue to reassess, slow improvement.
[2021-04-15] MEDS: Aspirin 81 MG Tab.Chew PO SCH (08:43)
[2021-04-15] MEDS: Polyethylene Glycol 3350 Powder 17 GM Packet PO SCH (08:43)
[2021-04-15] MEDS: Insulin Aspart 100 Units/ML 3 ML Pen SUBCUT SCH ×6 (08:47→17:54)
[2021-04-15] MEDS ORDERED: Zinc Oxide 13% Crm 56 GM Tube TOP PRN (10:00)
[2021-04-15] MEDS: VANCOmycin 1.5 GM/300 ML 1.5 GM in Premix Bag 1 BAG IV SCH (10:56)
[2021-04-15] MEDS: Azithromycin 250 MG Tab PO SCH (13:48)
[2021-04-15] MEDS ORDERED: Warfarin 2.5 MG Tab PO SCH (14:00)
[2021-04-15] MEDS: atorvaSTATin 40 MG Tab PO SCH (21:20)
[2021-04-16] MEDS: Budesonide 0.5 MG/2 ML Neb Susp INH SCH ×3 (05:44→21:07)
[2021-04-16] MEDS: Piperacillin/Tazobactam 3.375 GM in Sodium Chloride 0.9% 50 ML IV SCH ×3 (05:51→21:08)
[2021-04-16] MEDS: methylPREDNISolone Sodium Succinate 40 MG/1 ML SDV IVPUSH SCH ×3 (05:51→21:08)
[2021-04-16] MEDS: Furosemide 100 MG/10 ML SDV IVPUSH SCH (05:51)
[2021-04-16 05:58] LABS: CARBON DIOXIDE,CO2 43.4 mmol/L (21.0-32.0); POTASSIUM,K 4.5 mmol/L (3.5-5.1)
[2021-04-16] MEDS: Nystatin Topical Powder 15 GM Bottle TOP SCH ×3 (06:01→23:47)
[2021-04-16] MEDS ORDERED: Glucagon,Human Recombinant 1 MG Vial IM PRN (06:27)
[2021-04-16] MEDS ORDERED: 50% Dextrose in Water 50 ML Syringe IV PRN (06:27)
[2021-04-16] MEDS: Potassium Chloride 20 MEQ Tab.ER PO SCH ×3 (06:29→21:06)
[2021-04-16] MEDS: Levothyroxine 150 MCG Tab PO SCH (06:30)
[2021-04-16] MEDS: Pantoprazole 40 MG Tab.CR PO SCH (06:30)
--- NOTE | 2021-04-16 06:45 | PN ---
[facility] Physician - Brief Progress [id number]/26/2021 06:28[facility] Vineet plummer [place] - TEDDY (LASHAUN) - RUDY OROZCODate of Service 04/16/2021 06:28HPI/Event s of Note eICUGlu consistently elevated> 40 units over 24 hrsStart Lantus 20 QAMInterventions Major-H yperglycemia - active titration of insulin therapy
[2021-04-16] MEDS: Insulin Glargine,Human Rec. Analog 100 Units/ML 3 ML Pen SUBCUT SCH ×2 (08:27→13:18)
[2021-04-16] MEDS: Aspirin 81 MG Tab.Chew PO SCH (08:28)
[2021-04-16] MEDS: Insulin Aspart 100 Units/ML 3 ML Pen SUBCUT SCH ×6 (08:29→18:39)
[2021-04-16] MEDS: Polyethylene Glycol 3350 Powder 17 GM Packet PO SCH (08:32)
--- NOTE | 2021-04-16 09:40 | PCM.PN ---
- General Info Date of Service: 04/16/21 Admission Dx/Problem (Free Text): Admission Diagnosis/Problem Admission Diagnosis/Problem Cellulitis Subjective Update: Feeling ok this morning, slowing improving. Feeling SOB stil but maybe a little improved. Coughing this morning, unable to bring up thoroughly. No chest pain or SOB. No abdominal pain. [place] PT went ok yesterday doing bed exercises. Functional Status: Reports: Pain Controlled, Tolerating Diet, Urinating - Review of Systems General: Reports: Weakness, Fatigue HEENT: Reports: No Symptoms. Denies: Headaches, Sore Throat, Visual Changes Pulmonary: Reports: Shortness of Breath, Cough, Sputum (hard to bring up) Cardiovascular: Reports: Edema. Denies: Chest Pain, Palpitations Gastrointestinal: Reports: No Symptoms. Denies: Abdominal Pain, Nausea, Vomiting Genitourinary: Reports: No Symptoms Musculoskeletal: Reports: No Symptoms Skin: Reports: Bruising Neurological: Reports: No Symptoms Psychiatric: Reports: No Symptoms - Patient Data Vitals - Most Recent: Last Vital Signs Temp 97.7 F 04/16/21 04:00 Pulse 100 04/07/21 21:45 Resp 18 04/16/21 07:00 BP 132/65 04/16/21 04:00 Pulse Ox 88 L 04/16/21 07:00 Weight - Most Recent: 113.126 kg I&O - Last 24 Hours: Intake & Output 04/15/21 04/16/21 04/16/21 22:59 06:59 14:59 Intake Total 1462 240 Output Total 1650 1180 Balance -188 -940 Lab Results Last 24 Hours: Laboratory Results - last 24 hr 04/15/21 04/15/21 04/16/21 Range/Units 12:15 17:34 05:20 WBC 18.86 H (4.0-11.0) K/uL RBC 4.40 L (4.50-5.90) M/uL Hgb 14.3 (13.0-17.0) g/dL Hct 45.1 (38.0-50.0) % MCV 102.5 H (80.0-98.0) fL MCH 32.5 H (27.0-32.0) pg MCHC 31.7 (31.0-37.0) g/dL RDW Std Deviation 51.7 (28.0-62.0) fl RDW Coeff of Sunny 14 (11.0-15.0) % Plt Count 226 (150-400) K/uL MPV 12.50 H (7.40-12.00) fL Neut % (Auto) 94.3 H (48.0-80.0) % Lymph % (Auto) 2.0 L (16.0-40.0) % [place] % (Auto) 3.7 (0.0-15.0) % Eos % (Auto) 0.0 (0.0-7.0) % Baso % (Auto) 0.0 (0.0-1.5) % Neut # (Auto) 17.8 H (1.4-5.7) K/uL Lymph # (Auto) 0.4 L (0.6-2.4) K/uL [place] # (Auto) 0.7 (0.0-0.8) K/uL Eos # (Auto) 0.0 (0.0-0.7) K/uL Baso # (Auto) 0.0 (0.0-0.1) K/uL Nucleated RBC % 0.1 /100WBC Nucleated RBCs # 0 K/uL INR Sodium (136-148) mmol/L Potassium (3.5-5.1) mmol/L Chloride (98-107) mmol/L Carbon Dioxide (21.0-32.0) mmol/L BUN (7.0-18.0) mg/dL Creatinine (0.8-1.3) mg/dL Est Cr Clr Drug Dosing mL/min Estimated GFR (MDRD) ml/min Glucose (74-106) mg/dL POC Glucose 340 H 221 H (70-99) mg/dL Calcium (8.5-10.1) mg/dL Magnesium (1.8-2.4) mg/dL 04/16/21 04/16/21 04/16/21 Range/Units 05:20 05:20 06:36 WBC (4.0-11.0) K/uL RBC (4.50-5.90) M/uL Hgb (13.0-17.0) g/dL Hct (38.0-50.0) % MCV (80.0-98.0) fL MCH (27.0-32.0) pg MCHC (31.0-37.0) g/dL RDW Std Deviation (28.0-62.0) fl RDW Coeff of Sunny (11.0-15.0) % Plt Count (150-400) K/uL MPV (7.40-12.00) fL Neut % (Auto) (48.0-80.0) % Lymph % (Auto) (16.0-40.0) % [place] % (Auto) (0.0-15.0) % Eos % (Auto) (0.0-7.0) % Baso % (Auto) (0.0-1.5) % Neut # (Auto) (1.4-5.7) K/uL Lymph # (Auto) (0.6-2.4) K/uL [place] # (Auto) (0.0-0.8) K/uL Eos # (Auto) (0.0-0.7) K/uL Baso # (Auto) (0.0-0.1) K/uL Nucleated RBC % /100WBC Nucleated RBCs # K/uL INR 2.05 Sodium 142 (136-148) mmol/L Potassium 4.5 (3.5-5.1) mmol/L Chloride 103 (98-107) mmol/L Carbon Dioxide 43.4 H (21.0-32.0) mmol/L BUN 42 H (7.0-18.0) mg/dL Creatinine 1.3 (0.8-1.3) mg/dL Est Cr Clr Drug Dosing 55.62 mL/min Estimated GFR (MDRD) 53.1 ml/min Glucose 272 H (74-106) mg/dL POC Glucose 265 H (70-99) mg/dL Calcium 8.0 L (8.5-10.1) mg/dL Magnesium 3.0 H (1.8-2.4) mg/dL Med Orders - Current: Current Medications Albuterol/Ipratropium (Albuterol/Ipratropium 3.0-0.5 Mg/3 Ml Neb Soln) 3 ml NEB Q4HRRT PRN PRN Reason: Shortness of Breath Last Admin: 04/05/21 12:07 Dose: 3 ml Documented by: Aspirin (Aspirin 81 Mg Tab.Chew) 81 mg PO DAILY SUJATHA Last Admin: 04/16/21 08:28 Dose: 81 mg Documented by: Atorvastatin Calcium (Atorvastatin 40 Mg Tab) 40 mg PO BEDTIME [facility] Last Admin: 04/15/21 21:20 Dose: 40 mg Documented by: Azithromycin (Azithromycin 250 Mg Tab) 500 mg PO Q24H [facility] Last Admin: 04/15/21 13:48 Dose: 500 mg Documented by: Bisacodyl (Bisacodyl 10 Mg Supp) 10 mg RECTAL DAILY PRN PRN Reason: if no BM in 2 days Budesonide (Budesonide 0.5 Mg/2 Ml Neb Susp) 1 mg INH TID [facility] Last Admin: 04/16/21 05:44 Dose: 1 mg Documented by: Dextrose/Water (50% Dextrose In Water 50 Ml Syringe) 50 ml IVPUSH ASDIRECTED PRN PRN Reason: Hypoglycemia Docusate Sodium (Docusate Sodium 100 Mg Cap) 100 mg PO DAILY PRN PRN Reason: Constipation Furosemide (Furosemide 100 Mg/10 Ml Sdv) 60 mg IVPUSH TID [facility] Last Admin: 04/16/21 05:51 Dose: 60 mg Documented by: Glucagon (Glucagon,Human Recombinant 1 Mg Vial) 1 mg IM ASDIRECTED PRN PRN Reason: Hypoglycemia Piperacillin Sod/Tazobactam (Sod 3.375 gm/ Sodium Chloride) 50 mls @ 100 mls/hr IV Q8H [facility] Last Admin: 04/16/21 05:51 Dose: 100 mls/hr Documented by: Vancomycin HCl 1.5 gm/ Premix 300 mls @ 200 mls/hr IV Q24H [facility] Last Admin: 04/15/21 10:56 Dose: 200 mls/hr Documented by: Insulin Aspart (Insulin Aspart 100 Units/Ml 3 Ml Pen) 0 unit SUBCUT TIDAC [facility]; Protocol Last Admin: 04/16/21 08:29 Dose: 9 units Documented by: Insulin Aspart (Insulin Aspart 100 Units/Ml 3 Ml Pen) 5 unit SUBCUT TIDAC [facility] Last Admin: 04/16/21 08:30 Dose: 5 units Documented by: Insulin Glargine (Insulin Glargine,Human Rec. Analog 100 Units/Ml 3 Ml Pen) 20 units SUBCUT DAILY [facility] Last Admin: 04/16/21 08:27 Dose: 20 units Documented by: Levothyroxine Sodium (Levothyroxine 150 Mcg Tab) 150 mcg PO ACBREAKFAST [facility] Last Admin: 04/16/21 06:30 Dose: 150 mcg Documented by: Methylprednisolone Sodium Succinate (Methylprednisolone Sodium Succinate 40 Mg/1 Ml Sdv) 40 mg IVPUSH Q8H [facility] Last Admin: 04/16/21 05:51 Dose: 40 mg Documented by: Multi-Ingred Cream/Lotion/Oil/Oint (Zinc Oxide 13% Crm 56 Gm Tube) 0 gm TOP ASDIRECTED PRN PRN Reason: Skin protectant Last Admin: 04/15/21 10:57 Dose: 1 applic Documented by: Nystatin (Nystatin Topical Powder 15 Gm Bottle) 0 gm TOP TID [facility] Last Admin: 04/16/21 06:01 Dose: 1 applic Documented by: Pantoprazole Sodium (Pantoprazole 40 Mg Tab.Cr) 40 mg PO ACBREAKFAST [facility] Last Admin: 04/16/21 06:30 Dose: 40 mg Documented by: Polyethylene Glycol (Polyethylene Glycol 3350 Powder 17 Gm Packet) 17 gm PO DAILY [facility] Last Admin: 04/16/21 08:32 Dose: Not Given Documented by: Potassium Chloride (Potassium Chloride 20 Meq Tab.Er) 40 meq PO TID [facility] Last Admin: 04/16/21 06:29 Dose: 40 meq Documented by: Sodium Chloride (Sodium Chloride 0.65% Nasal [place] 45 Ml Bottle) 0 ml CADE QID PRN PRN Reason: nasal congestion Vancomycin HCl (Pharmacy To Dose - Vancomycin) 1 dose .XX ASDIRECTED [facility] Warfarin Sodium (Warfarin Ask Dosing) 1 each PO Q24H [facility] Last Admin: 04/15/21 13:50 Dose: 1 each Documented by: Discontinued Medications Acetazolamide (Acetazolamide 250 Mg Tab) 500 mg PO ONETIME ONE Stop: 04/14/21 09:49 Last Admin: 04/14/21 10:40 Dose: 500 mg Documented by: Albuterol/Ipratropium (Albuterol/Ipratropium 3.0-0.5 Mg/3 Ml Neb Soln) 3 ml INH TID PRN PRN Reason: Shortness of Breath Aspirin (Aspirin 81 Mg Tab.Chew) 324 mg PO ONETIME ONE Stop: 04/04/21 16:13 Last Admin: 04/04/21 16:26 Dose: 324 mg Documented by: Budesonide (Budesonide 0.5 Mg/2 Ml Neb Susp) Confirm Administered Dose 0.5 mg .ROUTE .STK-MED ONE Stop: 04/07/21 06:24 Last Admin: 04/07/21 15:59 Dose: Not Given Documented by: Dextrose/Water (50% Dextrose In Water 50 Ml Syringe) 50 ml IV ASDIRECTED PRN PRN Reason: Hypoglycemia Dextrose/Water (50% Dextrose In Water 50 Ml Syringe) 50 ml IV ASDIRECTED PRN PRN Reason: Hypoglycemia Dextrose/Water (50% Dextrose In Water 50 Ml Syringe) 50 ml IV ASDIRECTED PRN PRN Reason: Hypoglycemia Dextrose/Water (50% Dextrose In Water 50 Ml Syringe) 50 ml IVPUSH ASDIRECTED PRN PRN Reason: Hypoglycemia Docusate Sodium (Docusate Sodium 100 Mg Cap) 100 mg PO DAILY [facility] Last Admin: 04/11/21 09:05 Dose: Not Given Documented by: Enoxaparin Sodium (Enoxaparin 40 Mg/0.4 Ml Syringe) 40 mg SUBCUT Q12HR [facility] Last Admin: 04/07/21 08:32 Dose: 40 mg Documented by: Furosemide (Furosemide 20 Mg/2 Ml Vial) 20 mg IVPUSH ONETIME ONE Stop: 04/04/21 22:18 Last Admin: 04/04/21 23:02 Dose: 20 mg Documented by: Furosemide (Furosemide 40 Mg/4 Ml Vial) 20 mg IVPUSH NOW ONE Stop: 04/05/21 09:07 Last Admin: 04/05/21 09:39 Dose: 20 mg Documented by: Furosemide (Furosemide 40 Mg/4 Ml Vial) 20 mg IVPUSH ONETIME ONE Stop: 04/05/21 17:01 Last Admin: 04/05/21 16:48 Dose: Not Given Documented by: Furosemide (Furosemide 40 Mg/4 Ml Vial) 40 mg IVPUSH DAILY [facility] Last Admin: 04/07/21 08:27 Dose: 40 mg Documented by: Furosemide (Furosemide 20 Mg/2 Ml Vial) Confirm Administered Dose 20 mg .ROUTE .STK-MED ONE Stop: 04/05/21 21:47 Last Admin: 04/05/21 22:10 Dose: Not Given Documented by: Furosemide (Furosemide 40 Mg/4 Ml Vial) 20 mg IVPUSH NOW ONE Stop: 04/05/21 22:00 Last Admin: 04/05/21 22:09 Dose: 20 mg Documented by: Furosemide (Furosemide 40 Mg/4 Ml Vial) 40 mg IVPUSH BIDDIURETIC [facility] Last Admin: 04/08/21 08:15 Dose: 40 mg Documented by: Furosemide (Furosemide 40 Mg/4 Ml Vial) 40 mg IVPUSH NOW ONE Stop: 04/07/21 22:39 Last Admin: 04/07/21 22:45 Dose: 40 mg Documented by: Furosemide (Furosemide 40 Mg/4 Ml Vial) 40 mg IVPUSH TID [facility] Last Admin: 04/10/21 06:37 Dose: 40 mg Documented by: Furosemide (Furosemide 40 Mg/4 Ml Vial) 60 mg IVPUSH TID [facility] Last Admin: 04/11/21 06:18 Dose: 60 mg Documented by: Glucagon (Glucagon,Human Recombinant 1 Mg Vial) 1 mg IM ASDIRECTED PRN PRN Reason: Hypoglycemia Glucagon (Glucagon,Human Recombinant 1 Mg Vial) 1 mg IM ASDIRECTED PRN PRN Reason: Hypoglycemia Glucagon (Glucagon,Human Recombinant 1 Mg Vial) 1 mg IM ASDIRECTED PRN PRN Reason: Hypoglycemia Glucagon (Glucagon,Human Recombinant 1 Mg Vial) 1 mg IM ASDIRECTED PRN PRN Reason: Hypoglycemia Ceftriaxone Sodium/Dextrose 2 (gm/ Premix) 50 mls @ 100 mls/hr IV ONETIME ONE Stop: 04/04/21 17:58 Last Admin: 04/04/21 17:45 Dose: 100 mls/hr Documented by: Piperacillin Sod/Tazobactam (Sod 3.375 gm/ Sodium Chloride) 50 mls @ 100 mls/hr IV ONETIME ONE Stop: 04/04/21 21:32 Last Admin: 04/04/21 21:49 Dose: 100 mls/hr Documented by: Vancomycin HCl 1.5 gm/ Premix 300 mls @ 200 mls/hr IV Q12H [facility] Last Admin: 04/06/21 23:14 Dose: Not Given Documented by: Dexmedetomidine/Sodium (Chloride 400 mcg/ Premix) 100 mls @ 6.084 mls/hr IV TITRATE [facility]; Protocol Insulin Aspart (Insulin Aspart 100 Units/Ml 3 Ml Pen) 7 unit SUBCUT ONETIME ONE Stop: 04/11/21 18:30 Last Admin: 04/11/21 18:40 Dose: 7 units Documented by: Insulin Aspart (Insulin Aspart 100 Units/Ml 3 Ml Pen) 5 unit SUBCUT ONETIME ONE Stop: 04/11/21 19:42 Last Admin: 04/11/21 19:50 Dose: 5 units Documented by: Insulin Aspart (Insulin Aspart 100 Units/Ml 10 Ml Vial) 10 unit SUBCUT ONETIME ONE Stop: 04/11/21 22:41 Last Admin: 04/11/21 22:53 Dose: 10 units Documented by: Insulin Aspart (Insulin Aspart 100 Units/Ml 10 Ml Vial) 10 unit SUBCUT ONETIME ONE Stop: 04/12/21 02:11 Last Admin: 04/12/21 02:16 Dose: 10 units Documented by: Iopamidol (Iopamidol 755 Mg/Ml 500 Ml Multipack Bottle) 100 ml IVPUSH ONETIME ONE Stop: 04/04/21 18:43 Last Admin: 04/04/21 18:44 Dose: 100 ml Documented by: Lorazepam (Lorazepam 2 Mg/Ml Sdv) 0.5 mg IVPUSH ONETIME PRN PRN Reason: Bipap Methylprednisolone Sodium Succinate (Methylprednisolone Sodium Succinate 40 Mg/1 Ml Sdv) 60 mg IVPUSH Q8H [facility] Last Admin: 04/15/21 06:48 Dose: 60 mg Documented by: Potassium Chloride (Potassium Chloride 20 Meq Tab.Er) 40 meq PO ONETIME ONE Stop: 04/06/21 12:31 Last Admin: 04/06/21 12:58 Dose: 40 meq Documented by: Potassium Chloride (Potassium Chloride 20 Meq Tab.Er) 40 meq PO ONETIME ONE Stop: 04/08/21 07:50 Last Admin: 04/08/21 08:15 Dose: 40 meq Documented by: Potassium Chloride (Potassium Chloride 20 Meq Tab.Er) 40 meq PO ONETIME ONE Stop: 04/08/21 12:01 Last Admin: 04/08/21 12:24 Dose: 40 meq Documented by: Prednisone (Prednisone 10 Mg Tab) 10 mg PO BEDTIME [facility] Last Admin: 04/07/21 22:28 Dose: 10 mg Documented by: Prednisone (Prednisone 20 Mg Tab) 20 mg PO DAILY [facility] Last Admin: 04/07/21 08:31 Dose: 20 mg Documented by: Tamsulosin HCl (Tamsulosin 0.4 Mg Cap.Er) 0.4 mg PO ONETIME ONE Stop: 04/05/21 19:16 Last Admin: 04/05/21 19:53 Dose: 0.4 mg Documented by: Warfarin Sodium (Warfarin 2 Mg Tab) 4 mg PO ONETIME ONE Stop: 04/05/21 14:01 Last Admin: 04/05/21 14:05 Dose: 4 mg Documented by: Warfarin Sodium (Warfarin 1 Mg Tab) 3 mg PO ONETIME ONE Stop: 04/06/21 14:01 Last Admin: 04/06/21 13:35 Dose: 3 mg Documented by: Warfarin Sodium (Warfarin 2 Mg Tab) 2 mg PO 04/07/21@1400 [facility] Stop: 04/07/21 15:00 Last Admin: 04/07/21 14:21 Dose: 2 mg Documented by: Warfarin Sodium (Warfarin 1 Mg Tab) 1 mg PO 04/08/21@1400 [facility] Stop: 04/08/21 16:00 Last Admin: 04/08/21 13:44 Dose: 1 mg Documented by: Warfarin Sodium (Warfarin 2.5 Mg Tab) 2.5 mg PO DAILY@1400 [facility] Stop: 04/12/21 15:00 Last Admin: 04/12/21 15:04 Dose: 2.5 mg Documented by: Warfarin Sodium (Warfarin 1 Mg Tab) 3 mg PO DAILY@1400 [facility] Stop: 04/13/21 15:00 Last Admin: 04/13/21 13:00 Dose: 3 mg Documented by: Warfarin Sodium (Warfarin 2.5 Mg Tab) 2.5 mg PO DAILY@1400 [facility] Stop: 04/14/21 15:00 Last Admin: 04/14/21 13:59 Dose: 2.5 mg Documented by: Warfarin Sodium (Warfarin 2.5 Mg Tab) 2.5 mg PO DAILY@1400 [facility] Stop: 04/15/21 15:00 Last Admin: 04/15/21 13:49 Dose: 2.5 mg Documented by: - Exam Quality Assessment: Supplemental Oxygen (now on 30 L 40 % FIO2), DVT Prophylaxis General: Alert, Oriented, Cooperative, No Acute Distress Lungs: Decreased Breath Sounds (bibasilar), Crackles (upper, intermittently). No: Normal Respiratory Effort (intermittent dyspnea) Cardiovascular: Regular Rate, Regular Rhythm GI/Abdominal Exam: Normal Bowel Sounds, Soft, Non-Tender Back Exam: Normal Inspection, Full Range of Motion Extremities: Normal Inspection, Normal Range of Motion, Non-Tender, Pedal Edema (+1 piting edema to posterior upper extremities, +1 extending proximal to thighs which is +3 pitting edema) Skin: Warm, Dry, Ecchymosis (L hand and lower extremities) Wound/Incisions: No Drainage. No: Erythema Neurological: No New Focal Deficit Psy/Mental Status: Alert, Normal Affect, Normal Mood - Patient Data Lab Results Last 24 hrs: Laboratory Results - last 24 hr 04/15/21 04/15/21 04/16/21 Range/Units 12:15 17:34 05:20 WBC 18.86 H (4.0-11.0) K/uL RBC 4.40 L (4.50-5.90) M/uL Hgb 14.3 (13.0-17.0) g/dL Hct 45.1 (38.0-50.0) % MCV 102.5 H (80.0-98.0) fL MCH 32.5 H (27.0-32.0) pg MCHC 31.7 (31.0-37.0) g/dL RDW Std Deviation 51.7 (28.0-62.0) fl RDW Coeff of Sunny 14 (11.0-15.0) % Plt Count 226 (150-400) K/uL MPV 12.50 H (7.40-12.00) fL Neut % (Auto) 94.3 H (48.0-80.0) % Lymph % (Auto) 2.0 L (16.0-40.0) % [place] % (Auto) 3.7 (0.0-15.0) % Eos % (Auto) 0.0 (0.0-7.0) % Baso % (Auto) 0.0 (0.0-1.5) % Neut # (Auto) 17.8 H (1.4-5.7) K/uL Lymph # (Auto) 0.4 L (0.6-2.4) K/uL [place] # (Auto) 0.7 (0.0-0.8) K/uL Eos # (Auto) 0.0 (0.0-0.7) K/uL Baso # (Auto) 0.0 (0.0-0.1) K/uL Nucleated RBC % 0.1 /100WBC Nucleated RBCs # 0 K/uL INR Sodium (136-148) mmol/L Potassium (3.5-5.1) mmol/L Chloride (98-107) mmol/L Carbon Dioxide (21.0-32.0) mmol/L BUN (7.0-18.0) mg/dL Creatinine (0.8-1.3) mg/dL Est Cr Clr Drug Dosing mL/min Estimated GFR (MDRD) ml/min Glucose (74-106) mg/dL POC Glucose 340 H 221 H (70-99) mg/dL Calcium (8.5-10.1) mg/dL Magnesium (1.8-2.4) mg/dL 04/16/21 04/16/21 04/16/21 Range/Units 05:20 05:20 06:36 WBC (4.0-11.0) K/uL RBC (4.50-5.90) M/uL Hgb (13.0-17.0) g/dL Hct (38.0-50.0) % MCV (80.0-98.0) fL MCH (27.0-32.0) pg MCHC (31.0-37.0) g/dL RDW Std Deviation (28.0-62.0) fl RDW Coeff of Sunny (11.0-15.0) % Plt Count (150-400) K/uL MPV (7.40-12.00) fL Neut % (Auto) (48.0-80.0) % Lymph % (Auto) (16.0-40.0) % [place] % (Auto) (0.0-15.0) % Eos % (Auto) (0.0-7.0) % Baso % (Auto) (0.0-1.5) % Neut # (Auto) (1.4-5.7) K/uL Lymph # (Auto) (0.6-2.4) K/uL [place] # (Auto) (0.0-0.8) K/uL Eos # (Auto) (0.0-0.7) K/uL Baso # (Auto) (0.0-0.1) K/uL Nucleated RBC % /100WBC Nucleated RBCs # K/uL INR 2.05 Sodium 142 (136-148) mmol/L Potassium 4.5 (3.5-5.1) mmol/L Chloride 103 (98-107) mmol/L Carbon Dioxide 43.4 H (21.0-32.0) mmol/L BUN 42 H (7.0-18.0) mg/dL Creatinine 1.3 (0.8-1.3) mg/dL Est Cr Clr Drug Dosing 55.62 mL/min Estimated GFR (MDRD) 53.1 ml/min Glucose 272 H (74-106) mg/dL POC Glucose 265 H (70-99) mg/dL Calcium 8.0 L (8.5-10.1) mg/dL Magnesium 3.0 H (1.8-2.4) mg/dL Result Diagrams: 04/16/21 05:20 04/16/21 05:20 Sepsis Event Note - Evaluation Sepsis Screening Result: No Definite Risk - Focused Exam Vital Signs: Vital Signs Temp Resp BP Pulse Ox 04/16/21 07:00 18 88 L 04/16/21 06:00 18 91 L 04/16/21 05:00 18 94 L 04/16/21 04:00 97.7 F 16 132/65 95 04/16/21 03:00 17 95 04/16/21 02:00 16 94 L 04/16/21 01:00 18 95 04/16/21 00:00 98.4 F 15 108/58 L 92 L 04/15/21 23:00 19 94 L 04/15/21 22:00 20 94 L - Problem List & Annotations (1) Acute on chronic respiratory failure with hypoxia and hypercapnia SNOMED Code(s): 17441656974068 Code(s): J96.21 - ACUTE AND CHRONIC RESPIRATORY FAILURE WITH HYPOXIA; J96.22 - ACUTE AND CHRONIC RESPIRATORY FAILURE WITH HYPERCAPNIA Status: Acute Current Visit: Yes (2) Cellulitis SNOMED Code(s): 071237627 Code(s): L03.90 - CELLULITIS, UNSPECIFIED Status: Acute Current Visit: Yes Qualifiers: Site of cellulitis: extremity Site of cellulitis of extremity: upper extremity Laterality: left Qualified Code(s): L03.114 - Cellulitis of left upper limb (3) Anasarca SNOMED Code(s): 611232994, 542901310 Code(s): R60.1 - GENERALIZED EDEMA Status: Acute Current Visit: Yes (4) Hypoalbuminemia SNOMED Code(s): 367664460 Code(s): E88.09 - OTH DISORDERS OF PLASMA-PROTEIN METABOLISM, NEC Status: Acute Current Visit: Yes (5) Atypical pneumonia SNOMED Code(s): 403188637 Code(s): J18.9 - PNEUMONIA, UNSPECIFIED ORGANISM Status: Acute Current Visit: No (6) Constipation SNOMED Code(s): 08264862 Code(s): K59.00 - CONSTIPATION, UNSPECIFIED Status: Acute Current Visit: No (7) Chronic respiratory failure with hypoxia SNOMED Code(s): 031814992 Code(s): J96.11 - CHRONIC RESPIRATORY FAILURE WITH HYPOXIA Status: Chronic Current Visit: No (8) History of DVT (deep vein thrombosis) SNOMED Code(s): 859057549 Code(s): Z86.718 - PERSONAL HISTORY OF OTHER VENOUS THROMBOSIS AND EMBOLISM Status: Chronic Current Visit: No (9) Hypothyroidism SNOMED Code(s): 04962973 Code(s): E03.9 - HYPOTHYROIDISM, UNSPECIFIED Status: Chronic Current Visit: No (10) Oxygen dependent SNOMED Code(s): 006514405020 Code(s): Z99.81 - DEPENDENCE ON SUPPLEMENTAL OXYGEN Status: Chronic Current Visit: No (11) Pulmonary fibrosis SNOMED Code(s): 96402158 Code(s): J84.10 - PULMONARY FIBROSIS, UNSPECIFIED Status: Chronic Current Visit: No (12) Pulmonary edema SNOMED Code(s): 19487741 Code(s): J81.1 - CHRONIC PULMONARY EDEMA Status: Acute Current Visit: Yes (13) Hyperglycemia, drug-induced SNOMED Code(s): 504437959 Code(s): R73.9 - HYPERGLYCEMIA, UNSPECIFIED; T50.905A - ADVERSE EFFECT OF UNSP DRUG/MEDS/BIOL SUBST, INIT Status: Acute Current Visit: Yes (14) Stage I pressure ulcer of buttock SNOMED Code(s): 92858928381995050, 28410405172237266 Code(s): L89.301 - PRESSURE ULCER OF UNSPECIFIED BUTTOCK, STAGE 1 Status: Acute Current Visit: Yes Qualifiers: Laterality: unspecified laterality Qualified Code(s): L89.301 - Pressure ulcer of unspecified buttock, stage 1 - Problem List Review Problem List Initiated/Reviewed/Updated: Yes - My Orders Last 24 Hours: My Active Orders 04/15/21 08:52 PT Evaluation and Treatment [CONS] Routine 04/15/21 10:00 Zinc Oxide [Desitin Creamy Diaper Rash Crm] See Dose Instructions TOP ASDIRECTED PRN 04/15/21 14:00 methylPREDNISolone Sod Succ [Solu-MEDROL] 40 mg IVPUSH Q8H 04/17/21 05:11 BASIC METABOLIC PANEL,BMP [CHEM] AM CBC WITH AUTO DIFF [HEME] AM INR,PT,PROTHROMBIN TIME [COAG] AM MAGNESIUM [CHEM] AM 04/18/21 05:11 BASIC METABOLIC PANEL,BMP [CHEM] AM CBC WITH AUTO DIFF [HEME] AM INR,PT,PROTHROMBIN TIME [COAG] AM MAGNESIUM [CHEM] AM - Plan Plan:: 80 y/o M admitted for left arm cellulitis who then developed acute on chronic hypoxic respiratory failure. 1. Left arm cellulitis -Resolved. Will DC vancomycin. 2. Acute on chronic hypoxic hypercapnic respiratory failure secondary to pulmonary edema, pulmonary fibrosis and possible CAP -Continue HFNC, currently at 30L flow 40% FiO2, will work on transitioning to NC today. Likely transition to Med/Surg -Continue azithromycin, Zosyn and DC vancomycin -Decrease Lasix to 40 mg IV TID, -Continue steroids to 40 mg every 8 hours -DuoNebs as needed 3. Hyperglycemia due to steroid therapy -SSI high -Continue 5 units NovoLog to sliding scale at each meal -Continue diabetic diet - Lantus 20 units daily, appreciate EICU assistance 4. Hypothyroidism -Continue levothyroxine 5. History DVT on Coumadin -INR 2.05 today -Appreciate pharmacy's assistance in dosing. 6. Stage I decubitus ulcer to buttocks -Nurse reports sloughing of skin patient has been refusing repositioning did re- encourage this to patient and the importance of limiting skin breakdown -Patient becomes extremely short of breath with any type of exertion especially in a chair so patient has been more bedbound -Wound care consulted -Reposition every 2 hours. - PT to consult to help with activity level and reconditioning. 7. Afib - Paroxysmal afib noted yesterday, rate controlled, BP controlled. No distress. - Monitor on telemetry. Remains on chronic anticoagulation. VTE prophylaxis: Warfarin GI prophylaxis: Protonix CODE STATUS CPR only, declines intubation if needed. Dispo: 3 days pending improvement. Continue to reassess, slowly improving, will speak with daughter today. LIkely transition to Med/surg today. Still needs to consider goals of care as readmissions for respiratory distress is likely due to poor prognosis with pulmonary fibrosis.
[2021-04-16] MEDS: Azithromycin 250 MG Tab PO SCH (14:02)
[2021-04-16] MEDS: Furosemide 40 MG/4 ML VIAL IVPUSH SCH ×2 (14:04→21:08)
[2021-04-16] MEDS: atorvaSTATin 40 MG Tab PO SCH (21:06)
[2021-04-17] MEDS: Potassium Chloride 20 MEQ Tab.ER PO SCH ×3 (05:55→22:39)
[2021-04-17] MEDS: methylPREDNISolone Sodium Succinate 40 MG/1 ML SDV IVPUSH SCH ×2 (05:59→17:56)
[2021-04-17] MEDS: Furosemide 40 MG/4 ML VIAL IVPUSH SCH ×3 (06:01→22:42)
[2021-04-17] MEDS: Piperacillin/Tazobactam 3.375 GM in Sodium Chloride 0.9% 50 ML IV SCH ×3 (06:03→22:46)
[2021-04-17 06:34] LABS: CARBON DIOXIDE,CO2 43.3 mmol/L (21.0-32.0); POTASSIUM,K 4.4 mmol/L (3.5-5.1)
[2021-04-17] MEDS: Levothyroxine 150 MCG Tab PO SCH (06:34)
[2021-04-17] MEDS: Pantoprazole 40 MG Tab.CR PO SCH (06:34)
[2021-04-17] MEDS: Nystatin Topical Powder 15 GM Bottle TOP SCH ×3 (07:23→22:41)
--- NOTE | 2021-04-17 08:00 | PCM.PN ---
- General Info Date of Service: 04/17/21 Admission Dx/Problem (Free Text): Admission Diagnosis/Problem Admission Diagnosis/Problem Cellulitis Subjective Update: Patient reports he is feeling the same. Denies any chest pain reports intermittent shortness of breath that has improved since arrival. Denies any other pain eating and drinking well urinating and having bowel movements. Patient feels appears slightly glum today. When asked if anything is going on he just says no that is been a long time in the hospital. Has been working with physical therapy. Doing minimal therapies but not needing significant assistance. Functional Status: Reports: Pain Controlled, Tolerating Diet, Urinating - Review of Systems General: Reports: Weakness (Generalized but improving) HEENT: Reports: No Symptoms. Denies: Headaches, Sore Throat, Visual Changes Pulmonary: Reports: Shortness of Breath (Intermittent), Cough, Sputum. Denies: Hemoptysis, Wheezing Cardiovascular: Reports: Edema (Steadily improving anasarca). Denies: Chest Pain, Palpitations Gastrointestinal: Reports: No Symptoms. Denies: Diarrhea, Nausea, Vomiting Genitourinary: Reports: No Symptoms. Denies: Dysuria, Frequency Musculoskeletal: Reports: No Symptoms Skin: Reports: Bruising (Improving) Neurological: Reports: No Symptoms Psychiatric: Reports: No Symptoms - Patient Data Vitals - Most Recent: Last Vital Signs Temp 97.3 F 04/17/21 05:00 Pulse 100 04/07/21 21:45 Resp 15 04/17/21 07:00 BP 150/81 H 04/17/21 05:00 Pulse Ox 93 L 04/17/21 07:00 Weight - Most Recent: 114.351 kg I&O - Last 24 Hours: Intake & Output 04/16/21 04/17/21 04/17/21 22:59 06:59 14:59 Intake Total 986 1000 Output Total 1050 675 Balance -64 325 Lab Results Last 24 Hours: Laboratory Results - last 24 hr 04/16/21 04/16/21 04/17/21 Range/Units 12:15 17:55 05:25 WBC 20.90 H (4.0-11.0) K/uL RBC 4.72 (4.50-5.90) M/uL Hgb 15.0 (13.0-17.0) g/dL Hct 48.2 (38.0-50.0) % MCV 102.1 H (80.0-98.0) fL MCH 31.8 (27.0-32.0) pg MCHC 31.1 (31.0-37.0) g/dL RDW Std Deviation 51.8 (28.0-62.0) fl RDW Coeff of Sunny 14 (11.0-15.0) % Plt Count 229 (150-400) K/uL MPV 12.90 H (7.40-12.00) fL Neut % (Auto) 93.8 H (48.0-80.0) % Lymph % (Auto) 2.7 L (16.0-40.0) % [place] % (Auto) 3.4 (0.0-15.0) % Eos % (Auto) 0.0 (0.0-7.0) % Baso % (Auto) 0.1 (0.0-1.5) % Neut # (Auto) 19.6 H (1.4-5.7) K/uL Lymph # (Auto) 0.6 (0.6-2.4) K/uL [place] # (Auto) 0.7 (0.0-0.8) K/uL Eos # (Auto) 0.0 (0.0-0.7) K/uL Baso # (Auto) 0.0 (0.0-0.1) K/uL Nucleated RBC % 0.0 /100WBC Nucleated RBCs # 0 K/uL INR Sodium (136-148) mmol/L Potassium (3.5-5.1) mmol/L Chloride (98-107) mmol/L Carbon Dioxide (21.0-32.0) mmol/L BUN (7.0-18.0) mg/dL Creatinine (0.8-1.3) mg/dL Est Cr Clr Drug Dosing mL/min Estimated GFR (MDRD) ml/min Glucose (74-106) mg/dL POC Glucose 295 H 216 H (70-99) mg/dL Calcium (8.5-10.1) mg/dL Magnesium (1.8-2.4) mg/dL 04/17/21 04/17/21 Range/Units 05:25 05:25 WBC (4.0-11.0) K/uL RBC (4.50-5.90) M/uL Hgb (13.0-17.0) g/dL Hct (38.0-50.0) % MCV (80.0-98.0) fL MCH (27.0-32.0) pg MCHC (31.0-37.0) g/dL RDW Std Deviation (28.0-62.0) fl RDW Coeff of Sunny (11.0-15.0) % Plt Count (150-400) K/uL MPV (7.40-12.00) fL Neut % (Auto) (48.0-80.0) % Lymph % (Auto) (16.0-40.0) % [place] % (Auto) (0.0-15.0) % Eos % (Auto) (0.0-7.0) % Baso % (Auto) (0.0-1.5) % Neut # (Auto) (1.4-5.7) K/uL Lymph # (Auto) (0.6-2.4) K/uL [place] # (Auto) (0.0-0.8) K/uL Eos # (Auto) (0.0-0.7) K/uL Baso # (Auto) (0.0-0.1) K/uL Nucleated RBC % /100WBC Nucleated RBCs # K/uL INR 1.52 Sodium 145 (136-148) mmol/L Potassium 4.4 (3.5-5.1) mmol/L Chloride 103 (98-107) mmol/L Carbon Dioxide 43.3 H (21.0-32.0) mmol/L BUN 45 H (7.0-18.0) mg/dL Creatinine 1.2 (0.8-1.3) mg/dL Est Cr Clr Drug Dosing 60.25 mL/min Estimated GFR (MDRD) 58.3 ml/min Glucose 210 H (74-106) mg/dL POC Glucose (70-99) mg/dL Calcium 8.2 L (8.5-10.1) mg/dL Magnesium 3.2 H (1.8-2.4) mg/dL Med Orders - Current: Current Medications Albuterol/Ipratropium (Albuterol/Ipratropium 3.0-0.5 Mg/3 Ml Neb Soln) 3 ml NEB Q4HRRT PRN PRN Reason: Shortness of Breath Last Admin: 04/05/21 12:07 Dose: 3 ml Documented by: Aspirin (Aspirin 81 Mg Tab.Chew) 81 mg PO DAILY [facility] Last Admin: 04/16/21 08:28 Dose: 81 mg Documented by: Atorvastatin Calcium (Atorvastatin 40 Mg Tab) 40 mg PO BEDTIME [facility] Last Admin: 04/16/21 21:06 Dose: 40 mg Documented by: Azithromycin (Azithromycin 250 Mg Tab) 500 mg PO Q24H [facility] Last Admin: 04/16/21 14:02 Dose: 500 mg Documented by: Bisacodyl (Bisacodyl 10 Mg Supp) 10 mg RECTAL DAILY PRN PRN Reason: if no BM in 2 days Budesonide (Budesonide 0.5 Mg/2 Ml Neb Susp) 1 mg INH BID [facility] Last Admin: 04/16/21 21:07 Dose: 1 mg Documented by: Dextrose/Water (50% Dextrose In Water 50 Ml Syringe) 50 ml IVPUSH ASDIRECTED PRN PRN Reason: Hypoglycemia Docusate Sodium (Docusate Sodium 100 Mg Cap) 100 mg PO DAILY PRN PRN Reason: Constipation Furosemide (Furosemide 40 Mg/4 Ml Vial) 40 mg IVPUSH TID [facility] Last Admin: 04/17/21 06:01 Dose: 40 mg Documented by: Glucagon (Glucagon,Human Recombinant 1 Mg Vial) 1 mg IM ASDIRECTED PRN PRN Reason: Hypoglycemia Piperacillin Sod/Tazobactam (Sod 3.375 gm/ Sodium Chloride) 50 mls @ 100 mls/hr IV Q8H [facility] Last Admin: 04/17/21 06:03 Dose: 100 mls/hr Documented by: Insulin Aspart (Insulin Aspart 100 Units/Ml 3 Ml Pen) 0 unit SUBCUT TIDAC [facility]; Protocol Last Admin: 04/16/21 18:39 Dose: 6 units Documented by: Insulin Aspart (Insulin Aspart 100 Units/Ml 3 Ml Pen) 5 unit SUBCUT TIDAC [facility] Last Admin: 04/16/21 18:39 Dose: 5 units Documented by: Insulin Glargine (Insulin Glargine,Human Rec. Analog 100 Units/Ml 3 Ml Pen) 20 units SUBCUT DAILY [facility] Last Admin: 04/16/21 13:18 Dose: Not Given Documented by: Levothyroxine Sodium (Levothyroxine 150 Mcg Tab) 150 mcg PO ACBREAKFAST [facility] Last Admin: 04/17/21 06:34 Dose: 150 mcg Documented by: Methylprednisolone Sodium Succinate (Methylprednisolone Sodium Succinate 40 Mg/1 Ml Sdv) 40 mg IVPUSH Q8H [facility] Last Admin: 04/17/21 05:59 Dose: 40 mg Documented by: Multi-Ingred Cream/Lotion/Oil/Oint (Zinc Oxide 13% Crm 56 Gm Tube) 0 gm TOP ASDIRECTED PRN PRN Reason: Skin protectant Last Admin: 04/15/21 10:57 Dose: 1 applic Documented by: Nystatin (Nystatin Topical Powder 15 Gm Bottle) 0 gm TOP TID [facility] Last Admin: 04/17/21 07:23 Dose: Not Given Documented by: Pantoprazole Sodium (Pantoprazole 40 Mg Tab.Cr) 40 mg PO ACBREAKFAST [facility] Last Admin: 04/17/21 06:34 Dose: 40 mg Documented by: Polyethylene Glycol (Polyethylene Glycol 3350 Powder 17 Gm Packet) 17 gm PO DAILY [facility] Last Admin: 04/16/21 08:32 Dose: Not Given Documented by: Potassium Chloride (Potassium Chloride 20 Meq Tab.Er) 40 meq PO TID [facility] Last Admin: 04/17/21 05:55 Dose: 40 meq Documented by: Sodium Chloride (Sodium Chloride 0.65% Nasal [place] 45 Ml Bottle) 0 ml CADE QID PRN PRN Reason: nasal congestion Warfarin Sodium (Warfarin Ask Dosing) 1 each PO Q24H [facility] Last Admin: 04/16/21 14:05 Dose: 1 each Documented by: Discontinued Medications Acetazolamide (Acetazolamide 250 Mg Tab) 500 mg PO ONETIME ONE Stop: 04/14/21 09:49 Last Admin: 04/14/21 10:40 Dose: 500 mg Documented by: Albuterol/Ipratropium (Albuterol/Ipratropium 3.0-0.5 Mg/3 Ml Neb Soln) 3 ml INH TID PRN PRN Reason: Shortness of Breath Aspirin (Aspirin 81 Mg Tab.Chew) 324 mg PO ONETIME ONE Stop: 04/04/21 16:13 Last Admin: 04/04/21 16:26 Dose: 324 mg Documented by: Budesonide (Budesonide 0.5 Mg/2 Ml Neb Susp) 1 mg INH TID [facility] Last Admin: 04/16/21 14:04 Dose: 1 mg Documented by: Budesonide (Budesonide 0.5 Mg/2 Ml Neb Susp) Confirm Administered Dose 0.5 mg .ROUTE .STK-MED ONE Stop: 04/07/21 06:24 Last Admin: 04/07/21 15:59 Dose: Not Given Documented by: Dextrose/Water (50% Dextrose In Water 50 Ml Syringe) 50 ml IV ASDIRECTED PRN PRN Reason: Hypoglycemia Dextrose/Water (50% Dextrose In Water 50 Ml Syringe) 50 ml IV ASDIRECTED PRN PRN Reason: Hypoglycemia Dextrose/Water (50% Dextrose In Water 50 Ml Syringe) 50 ml IV ASDIRECTED PRN PRN Reason: Hypoglycemia Dextrose/Water (50% Dextrose In Water 50 Ml Syringe) 50 ml IVPUSH ASDIRECTED PRN PRN Reason: Hypoglycemia Docusate Sodium (Docusate Sodium 100 Mg Cap) 100 mg PO DAILY [facility] Last Admin: 04/11/21 09:05 Dose: Not Given Documented by: Enoxaparin Sodium (Enoxaparin 40 Mg/0.4 Ml Syringe) 40 mg SUBCUT Q12HR [facility] Last Admin: 04/07/21 08:32 Dose: 40 mg Documented by: Furosemide (Furosemide 20 Mg/2 Ml Vial) 20 mg IVPUSH ONETIME ONE Stop: 04/04/21 22:18 Last Admin: 04/04/21 23:02 Dose: 20 mg Documented by: Furosemide (Furosemide 40 Mg/4 Ml Vial) 20 mg IVPUSH NOW ONE Stop: 04/05/21 09:07 Last Admin: 04/05/21 09:39 Dose: 20 mg Documented by: Furosemide (Furosemide 40 Mg/4 Ml Vial) 20 mg IVPUSH ONETIME ONE Stop: 04/05/21 17:01 Last Admin: 04/05/21 16:48 Dose: Not Given Documented by: Furosemide (Furosemide 40 Mg/4 Ml Vial) 40 mg IVPUSH DAILY [facility] Last Admin: 04/07/21 08:27 Dose: 40 mg Documented by: Furosemide (Furosemide 20 Mg/2 Ml Vial) Confirm Administered Dose 20 mg .ROUTE .STK-MED ONE Stop: 04/05/21 21:47 Last Admin: 04/05/21 22:10 Dose: Not Given Documented by: Furosemide (Furosemide 40 Mg/4 Ml Vial) 20 mg IVPUSH NOW ONE Stop: 04/05/21 22:00 Last Admin: 04/05/21 22:09 Dose: 20 mg Documented by: Furosemide (Furosemide 40 Mg/4 Ml Vial) 40 mg IVPUSH BIDDIURETIC [facility] Last Admin: 04/08/21 08:15 Dose: 40 mg Documented by: Furosemide (Furosemide 40 Mg/4 Ml Vial) 40 mg IVPUSH NOW ONE Stop: 04/07/21 22:39 Last Admin: 04/07/21 22:45 Dose: 40 mg Documented by: Furosemide (Furosemide 40 Mg/4 Ml Vial) 40 mg IVPUSH TID [facility] Last Admin: 04/10/21 06:37 Dose: 40 mg Documented by: Furosemide (Furosemide 40 Mg/4 Ml Vial) 60 mg IVPUSH TID [facility] Last Admin: 04/11/21 06:18 Dose: 60 mg Documented by: Furosemide (Furosemide 100 Mg/10 Ml Sdv) 60 mg IVPUSH TID [facility] Last Admin: 04/16/21 05:51 Dose: 60 mg Documented by: Glucagon (Glucagon,Human Recombinant 1 Mg Vial) 1 mg IM ASDIRECTED PRN PRN Reason: Hypoglycemia Glucagon (Glucagon,Human Recombinant 1 Mg Vial) 1 mg IM ASDIRECTED PRN PRN Reason: Hypoglycemia Glucagon (Glucagon,Human Recombinant 1 Mg Vial) 1 mg IM ASDIRECTED PRN PRN Reason: Hypoglycemia Glucagon (Glucagon,Human Recombinant 1 Mg Vial) 1 mg IM ASDIRECTED PRN PRN Reason: Hypoglycemia Ceftriaxone Sodium/Dextrose 2 (gm/ Premix) 50 mls @ 100 mls/hr IV ONETIME ONE Stop: 04/04/21 17:58 Last Admin: 04/04/21 17:45 Dose: 100 mls/hr Documented by: Piperacillin Sod/Tazobactam (Sod 3.375 gm/ Sodium Chloride) 50 mls @ 100 mls/hr IV ONETIME ONE Stop: 04/04/21 21:32 Last Admin: 04/04/21 21:49 Dose: 100 mls/hr Documented by: Vancomycin HCl 1.5 gm/ Premix 300 mls @ 200 mls/hr IV Q12H [facility] Last Admin: 04/06/21 23:14 Dose: Not Given Documented by: Vancomycin HCl 1.5 gm/ Premix 300 mls @ 200 mls/hr IV Q24H [facility] Last Admin: 04/15/21 10:56 Dose: 200 mls/hr Documented by: Dexmedetomidine/Sodium (Chloride 400 mcg/ Premix) 100 mls @ 6.084 mls/hr IV TITRATE [facility]; Protocol Insulin Aspart (Insulin Aspart 100 Units/Ml 3 Ml Pen) 7 unit SUBCUT ONETIME ONE Stop: 04/11/21 18:30 Last Admin: 04/11/21 18:40 Dose: 7 units Documented by: Insulin Aspart (Insulin Aspart 100 Units/Ml 3 Ml Pen) 5 unit SUBCUT ONETIME ONE Stop: 04/11/21 19:42 Last Admin: 04/11/21 19:50 Dose: 5 units Documented by: Insulin Aspart (Insulin Aspart 100 Units/Ml 10 Ml Vial) 10 unit SUBCUT ONETIME ONE Stop: 04/11/21 22:41 Last Admin: 04/11/21 22:53 Dose: 10 units Documented by: Insulin Aspart (Insulin Aspart 100 Units/Ml 10 Ml Vial) 10 unit SUBCUT ONETIME ONE Stop: 04/12/21 02:11 Last Admin: 04/12/21 02:16 Dose: 10 units Documented by: Iopamidol (Iopamidol 755 Mg/Ml 500 Ml Multipack Bottle) 100 ml IVPUSH ONETIME ONE Stop: 04/04/21 18:43 Last Admin: 04/04/21 18:44 Dose: 100 ml Documented by: Lorazepam (Lorazepam 2 Mg/Ml Sdv) 0.5 mg IVPUSH ONETIME PRN PRN Reason: Bipap Methylprednisolone Sodium Succinate (Methylprednisolone Sodium Succinate 40 Mg/1 Ml Sdv) 60 mg IVPUSH Q8H [facility] Last Admin: 04/15/21 06:48 Dose: 60 mg Documented by: Potassium Chloride (Potassium Chloride 20 Meq Tab.Er) 40 meq PO ONETIME ONE Stop: 04/06/21 12:31 Last Admin: 04/06/21 12:58 Dose: 40 meq Documented by: Potassium Chloride (Potassium Chloride 20 Meq Tab.Er) 40 meq PO ONETIME ONE Stop: 04/08/21 07:50 Last Admin: 04/08/21 08:15 Dose: 40 meq Documented by: Potassium Chloride (Potassium Chloride 20 Meq Tab.Er) 40 meq PO ONETIME ONE Stop: 04/08/21 12:01 Last Admin: 04/08/21 12:24 Dose: 40 meq Documented by: Prednisone (Prednisone 10 Mg Tab) 10 mg PO BEDTIME [facility] Last Admin: 04/07/21 22:28 Dose: 10 mg Documented by: Prednisone (Prednisone 20 Mg Tab) 20 mg PO DAILY [facility] Last Admin: 04/07/21 08:31 Dose: 20 mg Documented by: Tamsulosin HCl (Tamsulosin 0.4 Mg Cap.Er) 0.4 mg PO ONETIME ONE Stop: 04/05/21 19:16 Last Admin: 04/05/21 19:53 Dose: 0.4 mg Documented by: Vancomycin HCl (Pharmacy To Dose - Vancomycin) 1 dose .XX ASDIRECTED [facility] Warfarin Sodium (Warfarin 2 Mg Tab) 4 mg PO ONETIME ONE Stop: 04/05/21 14:01 Last Admin: 04/05/21 14:05 Dose: 4 mg Documented by: Warfarin Sodium (Warfarin 1 Mg Tab) 3 mg PO ONETIME ONE Stop: 04/06/21 14:01 Last Admin: 04/06/21 13:35 Dose: 3 mg Documented by: Warfarin Sodium (Warfarin 2 Mg Tab) 2 mg PO 04/07/21@1399 [facility] Stop: 04/07/21 15:00 Last Admin: 04/07/21 14:21 Dose: 2 mg Documented by: Warfarin Sodium (Warfarin 1 Mg Tab) 1 mg PO 04/08/21@1399 [facility] Stop: 04/08/21 16:00 Last Admin: 04/08/21 13:44 Dose: 1 mg Documented by: Warfarin Sodium (Warfarin 2.5 Mg Tab) 2.5 mg PO DAILY@1400 [facility] Stop: 04/12/21 15:00 Last Admin: 04/12/21 15:04 Dose: 2.5 mg Documented by: Warfarin Sodium (Warfarin 1 Mg Tab) 3 mg PO DAILY@1399 [facility] Stop: 04/13/21 15:00 Last Admin: 04/13/21 13:00 Dose: 3 mg Documented by: Warfarin Sodium (Warfarin 2.5 Mg Tab) 2.5 mg PO DAILY@1400 [facility] Stop: 04/14/21 15:00 Last Admin: 04/14/21 13:59 Dose: 2.5 mg Documented by: Warfarin Sodium (Warfarin 2.5 Mg Tab) 2.5 mg PO DAILY@1400 [facility] Stop: 04/15/21 15:00 Last Admin: 04/15/21 13:49 Dose: 2.5 mg Documented by: - Exam General: Alert, Oriented, Cooperative, No Acute Distress Lungs: Normal Respiratory Effort (Minimal dyspnea noted), Decreased Breath Sounds (Bibasilar), Crackles (Left upper) Cardiovascular: Regular Rate, Regular Rhythm, No Murmurs GI/Abdominal Exam: Normal Bowel Sounds, Soft, Non-Tender, No Mass Back Exam: Normal Inspection, Full Range of Motion Extremities: Normal Inspection, Normal Range of Motion, Non-Tender, No Pedal Edema Neurological: No New Focal Deficit Psy/Mental Status: Alert, Normal Affect, Normal Mood - Patient Data Lab Results Last 24 hrs: Laboratory Results - last 24 hr 04/16/21 04/16/21 04/17/21 Range/Units 12:15 17:55 05:25 WBC 20.90 H (4.0-11.0) K/uL RBC 4.72 (4.50-5.90) M/uL Hgb 15.0 (13.0-17.0) g/dL Hct 48.2 (38.0-50.0) % MCV 102.1 H (80.0-98.0) fL MCH 31.8 (27.0-32.0) pg MCHC 31.1 (31.0-37.0) g/dL RDW Std Deviation 51.8 (28.0-62.0) fl RDW Coeff of Sunny 14 (11.0-15.0) % Plt Count 229 (150-400) K/uL MPV 12.90 H (7.40-12.00) fL Neut % (Auto) 93.8 H (48.0-80.0) % Lymph % (Auto) 2.7 L (16.0-40.0) % [place] % (Auto) 3.4 (0.0-15.0) % Eos % (Auto) 0.0 (0.0-7.0) % Baso % (Auto) 0.1 (0.0-1.5) % Neut # (Auto) 19.6 H (1.4-5.7) K/uL Lymph # (Auto) 0.6 (0.6-2.4) K/uL [place] # (Auto) 0.7 (0.0-0.8) K/uL Eos # (Auto) 0.0 (0.0-0.7) K/uL Baso # (Auto) 0.0 (0.0-0.1) K/uL Nucleated RBC % 0.0 /100WBC Nucleated RBCs # 0 K/uL INR Sodium (136-148) mmol/L Potassium (3.5-5.1) mmol/L Chloride (98-107) mmol/L Carbon Dioxide (21.0-32.0) mmol/L BUN (7.0-18.0) mg/dL Creatinine (0.8-1.3) mg/dL Est Cr Clr Drug Dosing mL/min Estimated GFR (MDRD) ml/min Glucose (74-106) mg/dL POC Glucose 295 H 216 H (70-99) mg/dL Calcium (8.5-10.1) mg/dL Magnesium (1.8-2.4) mg/dL 04/17/21 04/17/21 Range/Units 05:25 05:25 WBC (4.0-11.0) K/uL RBC (4.50-5.90) M/uL Hgb (13.0-17.0) g/dL Hct (38.0-50.0) % MCV (80.0-98.0) fL MCH (27.0-32.0) pg MCHC (31.0-37.0) g/dL RDW Std Deviation (28.0-62.0) fl RDW Coeff of Sunny (11.0-15.0) % Plt Count (150-400) K/uL MPV (7.40-12.00) fL Neut % (Auto) (48.0-80.0) % Lymph % (Auto) (16.0-40.0) % [place] % (Auto) (0.0-15.0) % Eos % (Auto) (0.0-7.0) % Baso % (Auto) (0.0-1.5) % Neut # (Auto) (1.4-5.7) K/uL Lymph # (Auto) (0.6-2.4) K/uL [place] # (Auto) (0.0-0.8) K/uL Eos # (Auto) (0.0-0.7) K/uL Baso # (Auto) (0.0-0.1) K/uL Nucleated RBC % /100WBC Nucleated RBCs # K/uL INR 1.52 Sodium 145 (136-148) mmol/L Potassium 4.4 (3.5-5.1) mmol/L Chloride 103 (98-107) mmol/L Carbon Dioxide 43.3 H (21.0-32.0) mmol/L BUN 45 H (7.0-18.0) mg/dL Creatinine 1.2 (0.8-1.3) mg/dL Est Cr Clr Drug Dosing 60.25 mL/min Estimated GFR (MDRD) 58.3 ml/min Glucose 210 H (74-106) mg/dL POC Glucose (70-99) mg/dL Calcium 8.2 L (8.5-10.1) mg/dL Magnesium 3.2 H (1.8-2.4) mg/dL Result Diagrams: 04/17/21 05:25 04/17/21 05:25 Sepsis Event Note - Evaluation Sepsis Screening Result: No Definite Risk - Focused Exam Vital Signs: Vital Signs Temp Resp BP Pulse Ox 04/17/21 07:00 15 93 L 04/17/21 06:00 17 95 04/17/21 05:00 97.3 F 14 150/81 H 91 L 04/17/21 04:00 15 92 L 04/17/21 03:00 11 L 92 L 04/17/21 02:00 17 88 L 04/17/21 01:00 10 L 92 L 04/17/21 00:00 97.6 F 17 135/84 91 L 04/16/21 23:00 12 92 L 04/16/21 22:00 21 H 91 L 04/16/21 21:00 13 88 L - Problem List & Annotations (1) Acute on chronic respiratory failure with hypoxia and hypercapnia SNOMED Code(s): 12219064907470 Code(s): J96.21 - ACUTE AND CHRONIC RESPIRATORY FAILURE WITH HYPOXIA; J96.22 - ACUTE AND CHRONIC RESPIRATORY FAILURE WITH HYPERCAPNIA Status: Acute Current Visit: Yes (2) Cellulitis SNOMED Code(s): 419552191 Code(s): L03.90 - CELLULITIS, UNSPECIFIED Status: Acute Current Visit: Yes Qualifiers: Site of cellulitis: extremity Site of cellulitis of extremity: upper extremity Laterality: left Qualified Code(s): L03.114 - Cellulitis of left upper limb (3) Anasarca SNOMED Code(s): 603334832, 773167428 Code(s): R60.1 - GENERALIZED EDEMA Status: Acute Current Visit: Yes (4) Hypoalbuminemia SNOMED Code(s): 055670466 Code(s): E88.09 - OTH DISORDERS OF PLASMA-PROTEIN METABOLISM, NEC Status: Acute Current Visit: Yes (5) Atypical pneumonia SNOMED Code(s): 864716353 Code(s): J18.9 - PNEUMONIA, UNSPECIFIED ORGANISM Status: Acute Current Visit: No (6) Constipation SNOMED Code(s): 49558952 Code(s): K59.00 - CONSTIPATION, UNSPECIFIED Status: Acute Current Visit: No (7) Chronic respiratory failure with hypoxia SNOMED Code(s): 530943442 Code(s): J96.11 - CHRONIC RESPIRATORY FAILURE WITH HYPOXIA Status: Chronic Current Visit: No (8) History of DVT (deep vein thrombosis) SNOMED Code(s): 397762228 Code(s): Z86.718 - PERSONAL HISTORY OF OTHER VENOUS THROMBOSIS AND EMBOLISM Status: Chronic Current Visit: No (9) Hypothyroidism SNOMED Code(s): 95661262 Code(s): E03.9 - HYPOTHYROIDISM, UNSPECIFIED Status: Chronic Current Visit: No (10) Oxygen dependent SNOMED Code(s): 746765529852 Code(s): Z99.81 - DEPENDENCE ON SUPPLEMENTAL OXYGEN Status: Chronic Current Visit: No (11) Pulmonary fibrosis SNOMED Code(s): 64061452 Code(s): J84.10 - PULMONARY FIBROSIS, UNSPECIFIED Status: Chronic Current Visit: No (12) Pulmonary edema SNOMED Code(s): 43576995 Code(s): J81.1 - CHRONIC PULMONARY EDEMA Status: Acute Current Visit: Yes (13) Hyperglycemia, drug-induced SNOMED Code(s): 622736844 Code(s): R73.9 - HYPERGLYCEMIA, UNSPECIFIED; T50.905A - ADVERSE EFFECT OF UNSP DRUG/MEDS/BIOL SUBST, INIT Status: Acute Current Visit: Yes (14) Stage I pressure ulcer of buttock SNOMED Code(s): 55261617639342227, 29997707422188094 Code(s): L89.301 - PRESSURE ULCER OF UNSPECIFIED BUTTOCK, STAGE 1 Status: Acute Current Visit: Yes Qualifiers: Laterality: unspecified laterality Qualified Code(s): L89.301 - Pressure ulcer of unspecified buttock, stage 1 - Problem List Review Problem List Initiated/Reviewed/Updated: Yes - My Orders Last 24 Hours: My Active Orders 04/16/21 14:00 Furosemide [Lasix] 40 mg IVPUSH TID 04/16/21 21:00 Budesonide [Pulmicort] 1 mg INH BID 04/18/21 05:11 BASIC METABOLIC PANEL,BMP [CHEM] AM CBC WITH AUTO DIFF [HEME] AM INR,PT,PROTHROMBIN TIME [COAG] AM MAGNESIUM [CHEM] AM - Plan Plan:: 80 y/o M admitted for left arm cellulitis who then developed acute on chronic hypoxic respiratory failure. 1. Acute on chronic hypoxic hypercapnic respiratory failure secondary to pulmonary edema, pulmonary fibrosis and possible CAP -Continue currently on 5 L nasal cannula -Continue Zosyn likely discontinued, will stop azithromycin today -Continue Lasix to 40 mg IV TID, -Continue steroids decreased to 40 every 12 hours -DuoNebs as needed 3. Hyperglycemia due to steroid therapy -SSI high -Continue 5 units NovoLog to sliding scale at each meal -Continue diabetic diet - Lantus 20 units daily 4. Hypothyroidism -Continue levothyroxine 5. History DVT on Coumadin -INR 1.52 today -Appreciate pharmacy's assistance in dosing. 6. Stage I decubitus ulcer to buttocks -Wound care consulted -Reposition every 2 hours, has been declining frequent reposition -PT to consult to help with activity level and reconditioning. 7. Afib - Monitor on telemetry, no further events. - Paroxysmal afib noted 04/15, rate controlled, BP controlled. No distress. -Remains on chronic anticoagulation. VTE prophylaxis: Warfarin GI prophylaxis: Protonix CODE STATUS CPR only, declines intubation if needed. Dispo: possible DC back to [facility] tomorrow. Spoke with Peggy, daughter yesterday.
[2021-04-17] MEDS: Budesonide 0.5 MG/2 ML Neb Susp INH SCH ×2 (09:21→22:35)
[2021-04-17] MEDS: Polyethylene Glycol 3350 Powder 17 GM Packet PO SCH (09:22)
[2021-04-17] MEDS: Insulin Aspart 100 Units/ML 3 ML Pen SUBCUT SCH ×6 (09:22→17:54)
[2021-04-17] MEDS: Aspirin 81 MG Tab.Chew PO SCH (09:22)
[2021-04-17] MEDS: Insulin Glargine,Human Rec. Analog 100 Units/ML 3 ML Pen SUBCUT SCH (09:24)
[2021-04-17] MEDS ORDERED: Polyethylene Glycol 3350 Powder 17 GM Packet PO PRN (09:52)
[2021-04-17] MEDS ORDERED: Warfarin 2.5 MG Tab PO SCH (14:00)
[2021-04-17] MEDS: atorvaSTATin 40 MG Tab PO SCH (22:38)
[2021-04-18 06:04] LABS: BLOOD UREA NITROGEN,BUN 42 mg/dL (7.0-18.0); CARBON DIOXIDE,CO2 40.8 mmol/L (21.0-32.0); CHLORIDE,CL 103 mmol/L (98-107); GLUCOSE RANDOM 192 mg/dL (74-106); POTASSIUM,K 4.3 mmol/L (3.5-5.1); SODIUM,NA 143 mmol/L (136-148)
[2021-04-18] MEDS: methylPREDNISolone Sodium Succinate 40 MG/1 ML SDV IVPUSH SCH ×2 (06:24→17:55)
[2021-04-18] MEDS: Furosemide 40 MG/4 ML VIAL IVPUSH SCH ×3 (06:30→22:16)
[2021-04-18] MEDS: Piperacillin/Tazobactam 3.375 GM in Sodium Chloride 0.9% 50 ML IV SCH (06:32)
[2021-04-18] MEDS: Nystatin Topical Powder 15 GM Bottle TOP SCH ×4 (06:35→22:16)
[2021-04-18] MEDS: Potassium Chloride 20 MEQ Tab.ER PO SCH (06:35)
[2021-04-18] MEDS: Levothyroxine 150 MCG Tab PO SCH (06:39)
[2021-04-18] MEDS: Pantoprazole 40 MG Tab.CR PO SCH (06:39)
[2021-04-18] MEDS: Insulin Aspart 100 Units/ML 3 ML Pen SUBCUT SCH ×6 (08:51→17:52)
[2021-04-18] MEDS: Insulin Glargine,Human Rec. Analog 100 Units/ML 3 ML Pen SUBCUT SCH (08:52)
[2021-04-18] MEDS: Aspirin 81 MG Tab.Chew PO SCH (08:52)
[2021-04-18] MEDS: Budesonide 0.5 MG/2 ML Neb Susp INH SCH ×2 (09:36→20:24)
--- NOTE | 2021-04-18 09:52 | PCM.PN ---
- General Info Date of Service: 04/18/21 Admission Dx/Problem (Free Text): Admission Diagnosis/Problem Admission Diagnosis/Problem Cellulitis Subjective Update: Patient reports he is feeling "about the same" denies any chest pain. Reports shortness of breath is intermittent and worse with exertion. Denies any pain reports he is eating well voiding well and having bowel movements. On second we discussed with patient the possibility of going back to [place] he did not seem very unimpressed with returning to [place] today as he reports he cannot even do anything. 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 Patient very quiet and did not converse much. He kept stating he would like to talk with his daughter before making any decisions. He understands our stance that we are concerned for his quality of life as his breathing issues will continue to worsen and he may be discharged at some point and then return very quickly with worsening respiratory status. He verbalized understanding but would like to talk with daughter when she arrives. Functional Status: Reports: Pain Controlled, Tolerating Diet, Urinating. Denies: Ambulating - Review of Systems General: Denies: Weakness, Fatigue, Malaise HEENT: Reports: No Symptoms. Denies: Headaches, Sore Throat, Visual Changes Pulmonary: Reports: Shortness of Breath, Cough. Denies: Sputum, Hemoptysis Cardiovascular: Reports: Edema. Denies: Chest Pain Gastrointestinal: Reports: No Symptoms. Denies: Abdominal Pain, Nausea, Vomiting Genitourinary: Reports: No Symptoms. Denies: Dysuria, Frequency, Burning Musculoskeletal: Reports: No Symptoms Skin: Reports: No Symptoms Neurological: Reports: No Symptoms Psychiatric: Reports: No Symptoms - Patient Data Vitals - Most Recent: Last Vital Signs Temp 97.9 F 04/18/21 07:37 Pulse 80 04/18/21 07:37 Resp 20 04/18/21 07:37 BP 143/77 H 04/18/21 07:37 Pulse Ox 92 L 04/18/21 07:37 Weight - Most Recent: 114.351 kg I&O - Last 24 Hours: Intake & Output 04/17/21 04/18/21 04/18/21 22:59 06:59 14:59 Intake Total 620 670 Output Total 1406 950 Balance -786 -280 Lab Results Last 24 Hours: Laboratory Results - last 24 hr 04/17/21 04/17/21 04/18/21 Range/Units 14:15 17:39 05:35 WBC 21.89 H (4.0-11.0) K/uL RBC 4.50 (4.50-5.90) M/uL Hgb 14.5 (13.0-17.0) g/dL Hct 45.3 (38.0-50.0) % MCV 100.7 H (80.0-98.0) fL MCH 32.2 H (27.0-32.0) pg MCHC 32.0 (31.0-37.0) g/dL RDW Std Deviation 51.4 (28.0-62.0) fl RDW Coeff of Sunny 14 (11.0-15.0) % Plt Count 199 (150-400) K/uL MPV 12.30 H (7.40-12.00) fL Add Manual Diff YES Neutrophils % (Manual) 88 H (48.0-80.0) % Band Neutrophils % 2 % Lymphocytes % (Manual) 6 L (16.0-40.0) % Monocytes % (Manual) 4 (0.0-15.0) % Nucleated RBC % 0.0 /100WBC Absolute Seg Neuts 19.3 H (1.4-5.7) Band Neutrophils # 0.4 Lymphocytes # (Manual) 1.3 (0.6-2.4) Monocytes # (Manual) 0.9 H (0.0-0.8) Nucleated RBCs # 0 K/uL INR Sodium (136-148) mmol/L Potassium (3.5-5.1) mmol/L Chloride (98-107) mmol/L Carbon Dioxide (21.0-32.0) mmol/L BUN (7.0-18.0) mg/dL Creatinine (0.8-1.3) mg/dL Est Cr Clr Drug Dosing mL/min Estimated GFR (MDRD) ml/min Glucose (74-106) mg/dL POC Glucose 276 H 230 H (70-99) mg/dL Calcium (8.5-10.1) mg/dL Magnesium (1.8-2.4) mg/dL 04/18/21 04/18/21 04/18/21 Range/Units 05:35 05:35 07:51 WBC (4.0-11.0) K/uL RBC (4.50-5.90) M/uL Hgb (13.0-17.0) g/dL Hct (38.0-50.0) % MCV (80.0-98.0) fL MCH (27.0-32.0) pg MCHC (31.0-37.0) g/dL RDW Std Deviation (28.0-62.0) fl RDW Coeff of Sunny (11.0-15.0) % Plt Count (150-400) K/uL MPV (7.40-12.00) fL Add Manual Diff Neutrophils % (Manual) (48.0-80.0) % Band Neutrophils % % Lymphocytes % (Manual) (16.0-40.0) % Monocytes % (Manual) (0.0-15.0) % Nucleated RBC % /100WBC Absolute Seg Neuts (1.4-5.7) Band Neutrophils # Lymphocytes # (Manual) (0.6-2.4) Monocytes # (Manual) (0.0-0.8) Nucleated RBCs # K/uL INR 1.46 Sodium 143 (136-148) mmol/L Potassium 4.3 (3.5-5.1) mmol/L Chloride 103 (98-107) mmol/L Carbon Dioxide 40.8 H (21.0-32.0) mmol/L BUN 42 H (7.0-18.0) mg/dL Creatinine 1.1 (0.8-1.3) mg/dL Est Cr Clr Drug Dosing 65.73 mL/min Estimated GFR (MDRD) > 60.0 ml/min Glucose 192 H (74-106) mg/dL POC Glucose 194 H (70-99) mg/dL Calcium 8.5 (8.5-10.1) mg/dL Magnesium 3.0 H (1.8-2.4) mg/dL Med Orders - Current: Current Medications Albuterol/Ipratropium (Albuterol/Ipratropium 3.0-0.5 Mg/3 Ml Neb Soln) 3 ml NEB Q4HRRT PRN PRN Reason: Shortness of Breath Last Admin: 04/05/21 12:07 Dose: 3 ml Documented by: Aspirin (Aspirin 81 Mg Tab.Chew) 81 mg PO DAILY [facility] Last Admin: 04/18/21 08:52 Dose: 81 mg Documented by: Atorvastatin Calcium (Atorvastatin 40 Mg Tab) 40 mg PO BEDTIME [facility] Last Admin: 04/17/21 22:38 Dose: 40 mg Documented by: Bisacodyl (Bisacodyl 10 Mg Supp) 10 mg RECTAL DAILY PRN PRN Reason: if no BM in 2 days Budesonide (Budesonide 0.5 Mg/2 Ml Neb Susp) 1 mg INH BID [facility] Last Admin: 04/18/21 09:36 Dose: 1 mg Documented by: Dextrose/Water (50% Dextrose In Water 50 Ml Syringe) 50 ml IVPUSH ASDIRECTED PRN PRN Reason: Hypoglycemia Docusate Sodium (Docusate Sodium 100 Mg Cap) 100 mg PO DAILY PRN PRN Reason: Constipation Furosemide (Furosemide 40 Mg/4 Ml Vial) 40 mg IVPUSH TID [facility] Last Admin: 04/18/21 06:30 Dose: 40 mg Documented by: Glucagon (Glucagon,Human Recombinant 1 Mg Vial) 1 mg IM ASDIRECTED PRN PRN Reason: Hypoglycemia Piperacillin Sod/Tazobactam (Sod 3.375 gm/ Sodium Chloride) 50 mls @ 100 mls/hr IV Q8H [facility] Last Admin: 04/18/21 06:32 Dose: 100 mls/hr Documented by: Insulin Aspart (Insulin Aspart 100 Units/Ml 3 Ml Pen) 0 unit SUBCUT TIDAC [facility]; Protocol Last Admin: 04/18/21 08:51 Dose: 3 units Documented by: Insulin Aspart (Insulin Aspart 100 Units/Ml 3 Ml Pen) 5 unit SUBCUT TIDAC [facility] Last Admin: 04/18/21 08:51 Dose: 5 units Documented by: Insulin Glargine (Insulin Glargine,Human Rec. Analog 100 Units/Ml 3 Ml Pen) 20 units SUBCUT DAILY [facility] Last Admin: 04/18/21 08:52 Dose: 20 units Documented by: Levothyroxine Sodium (Levothyroxine 150 Mcg Tab) 150 mcg PO ACBREAKFAST [facility] Last Admin: 04/18/21 06:39 Dose: 150 mcg Documented by: Methylprednisolone Sodium Succinate (Methylprednisolone Sodium Succinate 40 Mg/1 Ml Sdv) 40 mg IVPUSH Q12H [facility] Last Admin: 04/18/21 06:24 Dose: 40 mg Documented by: Multi-Ingred Cream/Lotion/Oil/Oint (Zinc Oxide 13% Crm 56 Gm Tube) 0 gm TOP ASDIRECTED PRN PRN Reason: Skin protectant Last Admin: 04/15/21 10:57 Dose: 1 applic Documented by: Nystatin (Nystatin Topical Powder 15 Gm Bottle) 0 gm TOP TID [facility] Last Admin: 04/18/21 06:35 Dose: Not Given Documented by: Pantoprazole Sodium (Pantoprazole 40 Mg Tab.Cr) 40 mg PO ACBREAKFAST [facility] Last Admin: 04/18/21 06:39 Dose: 40 mg Documented by: Polyethylene Glycol (Polyethylene Glycol 3350 Powder 17 Gm Packet) 17 gm PO DAILY PRN PRN Reason: if no BM in 2 days Sodium Chloride (Sodium Chloride 0.65% Nasal [place] 45 Ml Bottle) 0 ml CADE QID PRN PRN Reason: nasal congestion Warfarin Sodium (Warfarin Ask Dosing) 1 each PO Q24H [facility] Last Admin: 04/17/21 15:20 Dose: Not Given Documented by: Discontinued Medications Acetazolamide (Acetazolamide 250 Mg Tab) 500 mg PO ONETIME ONE Stop: 04/14/21 09:49 Last Admin: 04/14/21 10:40 Dose: 500 mg Documented by: Albuterol/Ipratropium (Albuterol/Ipratropium 3.0-0.5 Mg/3 Ml Neb Soln) 3 ml INH TID PRN PRN Reason: Shortness of Breath Aspirin (Aspirin 81 Mg Tab.Chew) 324 mg PO ONETIME ONE Stop: 04/04/21 16:13 Last Admin: 04/04/21 16:26 Dose: 324 mg Documented by: Azithromycin (Azithromycin 250 Mg Tab) 500 mg PO Q24H [facility] Last Admin: 04/16/21 14:02 Dose: 500 mg Documented by: Budesonide (Budesonide 0.5 Mg/2 Ml Neb Susp) 1 mg INH TID [facility] Last Admin: 04/16/21 14:04 Dose: 1 mg Documented by: Budesonide (Budesonide 0.5 Mg/2 Ml Neb Susp) Confirm Administered Dose 0.5 mg .ROUTE .STK-MED ONE Stop: 04/07/21 06:24 Last Admin: 04/07/21 15:59 Dose: Not Given Documented by: Dextrose/Water (50% Dextrose In Water 50 Ml Syringe) 50 ml IV ASDIRECTED PRN PRN Reason: Hypoglycemia Dextrose/Water (50% Dextrose In Water 50 Ml Syringe) 50 ml IV ASDIRECTED PRN PRN Reason: Hypoglycemia Dextrose/Water (50% Dextrose In Water 50 Ml Syringe) 50 ml IV ASDIRECTED PRN PRN Reason: Hypoglycemia Dextrose/Water (50% Dextrose In Water 50 Ml Syringe) 50 ml IVPUSH ASDIRECTED PRN PRN Reason: Hypoglycemia Docusate Sodium (Docusate Sodium 100 Mg Cap) 100 mg PO DAILY [facility] Last Admin: 04/11/21 09:05 Dose: Not Given Documented by: Enoxaparin Sodium (Enoxaparin 40 Mg/0.4 Ml Syringe) 40 mg SUBCUT Q12HR [facility] Last Admin: 04/07/21 08:32 Dose: 40 mg Documented by: Furosemide (Furosemide 20 Mg/2 Ml Vial) 20 mg IVPUSH ONETIME ONE Stop: 04/04/21 22:18 Last Admin: 04/04/21 23:02 Dose: 20 mg Documented by: Furosemide (Furosemide 40 Mg/4 Ml Vial) 20 mg IVPUSH NOW ONE Stop: 04/05/21 09:07 Last Admin: 04/05/21 09:39 Dose: 20 mg Documented by: Furosemide (Furosemide 40 Mg/4 Ml Vial) 20 mg IVPUSH ONETIME ONE Stop: 04/05/21 17:01 Last Admin: 04/05/21 16:48 Dose: Not Given Documented by: Furosemide (Furosemide 40 Mg/4 Ml Vial) 40 mg IVPUSH DAILY [facility] Last Admin: 04/07/21 08:27 Dose: 40 mg Documented by: Furosemide (Furosemide 20 Mg/2 Ml Vial) Confirm Administered Dose 20 mg .ROUTE .STK-MED ONE Stop: 04/05/21 21:47 Last Admin: 04/05/21 22:10 Dose: Not Given Documented by: Furosemide (Furosemide 40 Mg/4 Ml Vial) 20 mg IVPUSH NOW ONE Stop: 04/05/21 22:00 Last Admin: 04/05/21 22:09 Dose: 20 mg Documented by: Furosemide (Furosemide 40 Mg/4 Ml Vial) 40 mg IVPUSH BIDDIURETIC [facility] Last Admin: 04/08/21 08:15 Dose: 40 mg Documented by: Furosemide (Furosemide 40 Mg/4 Ml Vial) 40 mg IVPUSH NOW ONE Stop: 04/07/21 22:39 Last Admin: 04/07/21 22:45 Dose: 40 mg Documented by: Furosemide (Furosemide 40 Mg/4 Ml Vial) 40 mg IVPUSH TID [facility] Last Admin: 04/10/21 06:37 Dose: 40 mg Documented by: Furosemide (Furosemide 40 Mg/4 Ml Vial) 60 mg IVPUSH TID [facility] Last Admin: 04/11/21 06:18 Dose: 60 mg Documented by: Furosemide (Furosemide 100 Mg/10 Ml Sdv) 60 mg IVPUSH TID [facility] Last Admin: 04/16/21 05:51 Dose: 60 mg Documented by: Glucagon (Glucagon,Human Recombinant 1 Mg Vial) 1 mg IM ASDIRECTED PRN PRN Reason: Hypoglycemia Glucagon (Glucagon,Human Recombinant 1 Mg Vial) 1 mg IM ASDIRECTED PRN PRN Reason: Hypoglycemia Glucagon (Glucagon,Human Recombinant 1 Mg Vial) 1 mg IM ASDIRECTED PRN PRN Reason: Hypoglycemia Glucagon (Glucagon,Human Recombinant 1 Mg Vial) 1 mg IM ASDIRECTED PRN PRN Reason: Hypoglycemia Ceftriaxone Sodium/Dextrose 2 (gm/ Premix) 50 mls @ 100 mls/hr IV ONETIME ONE Stop: 04/04/21 17:58 Last Admin: 04/04/21 17:45 Dose: 100 mls/hr Documented by: Piperacillin Sod/Tazobactam (Sod 3.375 gm/ Sodium Chloride) 50 mls @ 100 mls/hr IV ONETIME ONE Stop: 04/04/21 21:32 Last Admin: 04/04/21 21:49 Dose: 100 mls/hr Documented by: Vancomycin HCl 1.5 gm/ Premix 300 mls @ 200 mls/hr IV Q12H [facility] Last Admin: 04/06/21 23:14 Dose: Not Given Documented by: Vancomycin HCl 1.5 gm/ Premix 300 mls @ 200 mls/hr IV Q24H [facility] Last Admin: 04/15/21 10:56 Dose: 200 mls/hr Documented by: Dexmedetomidine/Sodium (Chloride 400 mcg/ Premix) 100 mls @ 6.084 mls/hr IV TITRATE [facility]; Protocol Insulin Aspart (Insulin Aspart 100 Units/Ml 3 Ml Pen) 7 unit SUBCUT ONETIME ONE Stop: 04/11/21 18:30 Last Admin: 04/11/21 18:40 Dose: 7 units Documented by: Insulin Aspart (Insulin Aspart 100 Units/Ml 3 Ml Pen) 5 unit SUBCUT ONETIME ONE Stop: 04/11/21 19:42 Last Admin: 04/11/21 19:50 Dose: 5 units Documented by: Insulin Aspart (Insulin Aspart 100 Units/Ml 10 Ml Vial) 10 unit SUBCUT ONETIME ONE Stop: 04/11/21 22:41 Last Admin: 04/11/21 22:53 Dose: 10 units Documented by: Insulin Aspart (Insulin Aspart 100 Units/Ml 10 Ml Vial) 10 unit SUBCUT ONETIME ONE Stop: 04/12/21 02:11 Last Admin: 04/12/21 02:16 Dose: 10 units Documented by: Iopamidol (Iopamidol 755 Mg/Ml 500 Ml Multipack Bottle) 100 ml IVPUSH ONETIME ONE Stop: 04/04/21 18:43 Last Admin: 04/04/21 18:44 Dose: 100 ml Documented by: Lorazepam (Lorazepam 2 Mg/Ml Sdv) 0.5 mg IVPUSH ONETIME PRN PRN Reason: Bipap Methylprednisolone Sodium Succinate (Methylprednisolone Sodium Succinate 40 Mg/1 Ml Sdv) 60 mg IVPUSH Q8H [facility] Last Admin: 04/15/21 06:48 Dose: 60 mg Documented by: Methylprednisolone Sodium Succinate (Methylprednisolone Sodium Succinate 40 Mg/1 Ml Sdv) 40 mg IVPUSH Q8H [facility] Last Admin: 04/17/21 05:59 Dose: 40 mg Documented by: Polyethylene Glycol (Polyethylene Glycol 3350 Powder 17 Gm Packet) 17 gm PO DAILY [facility] Last Admin: 04/17/21 09:22 Dose: 17 gm Documented by: Potassium Chloride (Potassium Chloride 20 Meq Tab.Er) 40 meq PO ONETIME ONE Stop: 04/06/21 12:31 Last Admin: 04/06/21 12:58 Dose: 40 meq Documented by: Potassium Chloride (Potassium Chloride 20 Meq Tab.Er) 40 meq PO ONETIME ONE Stop: 04/08/21 07:50 Last Admin: 04/08/21 08:15 Dose: 40 meq Documented by: Potassium Chloride (Potassium Chloride 20 Meq Tab.Er) 40 meq PO ONETIME ONE Stop: 04/08/21 12:01 Last Admin: 04/08/21 12:24 Dose: 40 meq Documented by: Potassium Chloride (Potassium Chloride 20 Meq Tab.Er) 40 meq PO TID [facility] Last Admin: 04/18/21 06:35 Dose: 40 meq Documented by: Prednisone (Prednisone 10 Mg Tab) 10 mg PO BEDTIME [facility] Last Admin: 04/07/21 22:28 Dose: 10 mg Documented by: Prednisone (Prednisone 20 Mg Tab) 20 mg PO DAILY [facility] Last Admin: 04/07/21 08:31 Dose: 20 mg Documented by: Tamsulosin HCl (Tamsulosin 0.4 Mg Cap.Er) 0.4 mg PO ONETIME ONE Stop: 04/05/21 19:16 Last Admin: 04/05/21 19:53 Dose: 0.4 mg Documented by: Vancomycin HCl (Pharmacy To Dose - Vancomycin) 1 dose .XX ASDIRECTED [facility] Warfarin Sodium (Warfarin 2 Mg Tab) 4 mg PO ONETIME ONE Stop: 04/05/21 14:01 Last Admin: 04/05/21 14:05 Dose: 4 mg Documented by: Warfarin Sodium (Warfarin 1 Mg Tab) 3 mg PO ONETIME ONE Stop: 04/06/21 14:01 Last Admin: 04/06/21 13:35 Dose: 3 mg Documented by: Warfarin Sodium (Warfarin 2 Mg Tab) 2 mg PO 04/07/21@1400 [facility] Stop: 04/07/21 15:00 Last Admin: 04/07/21 14:21 Dose: 2 mg Documented by: Warfarin Sodium (Warfarin 1 Mg Tab) 1 mg PO 04/08/21@1400 [facility] Stop: 04/08/21 16:00 Last Admin: 04/08/21 13:44 Dose: 1 mg Documented by: Warfarin Sodium (Warfarin 2.5 Mg Tab) 2.5 mg PO DAILY@1400 [facility] Stop: 04/12/21 15:00 Last Admin: 04/12/21 15:04 Dose: 2.5 mg Documented by: Warfarin Sodium (Warfarin 1 Mg Tab) 3 mg PO DAILY@1400 [facility] Stop: 04/13/21 15:00 Last Admin: 04/13/21 13:00 Dose: 3 mg Documented by: Warfarin Sodium (Warfarin 2.5 Mg Tab) 2.5 mg PO DAILY@1400 [facility] Stop: 04/14/21 15:00 Last Admin: 04/14/21 13:59 Dose: 2.5 mg Documented by: Warfarin Sodium (Warfarin 2.5 Mg Tab) 2.5 mg PO DAILY@1399 [facility] Stop: 04/15/21 15:00 Last Admin: 04/15/21 13:49 Dose: 2.5 mg Documented by: Warfarin Sodium (Warfarin 2.5 Mg Tab) 2.5 mg PO 04/17/21@1400 [facility] Stop: 04/17/21 16:00 Last Admin: 04/17/21 14:15 Dose: 2.5 mg Documented by: - Exam Quality Assessment: Supplemental Oxygen (4 to 5 L nasal cannula), DVT Prophylaxis General: Alert, Oriented, Cooperative, No Acute Distress Lungs: Decreased Breath Sounds, Crackles Cardiovascular: Regular Rate, Regular Rhythm GI/Abdominal Exam: Normal Bowel Sounds, Soft, Non-Tender Extremities: Normal Inspection, Normal Range of Motion, Non-Tender, Pedal Edema (+3 pitting edema to bilateral thighs improving distally to feet which are +1 nonpitting. Pitting edema noted to bilateral upper extremities more so to posterior bicep.) Skin: Ecchymosis Wound/Incisions: Healing Well, No Drainage. No: Erythema Neurological: No New Focal Deficit Psy/Mental Status: Alert, Normal Affect, Normal Mood - Patient Data Lab Results Last 24 hrs: Laboratory Results - last 24 hr 04/17/21 04/17/21 04/18/21 Range/Units 14:15 17:39 05:35 WBC 21.89 H (4.0-11.0) K/uL RBC 4.50 (4.50-5.90) M/uL Hgb 14.5 (13.0-17.0) g/dL Hct 45.3 (38.0-50.0) % MCV 100.7 H (80.0-98.0) fL MCH 32.2 H (27.0-32.0) pg MCHC 32.0 (31.0-37.0) g/dL RDW Std Deviation 51.4 (28.0-62.0) fl RDW Coeff of Sunny 14 (11.0-15.0) % Plt Count 199 (150-400) K/uL MPV 12.30 H (7.40-12.00) fL Add Manual Diff YES Neutrophils % (Manual) 88 H (48.0-80.0) % Band Neutrophils % 2 % Lymphocytes % (Manual) 6 L (16.0-40.0) % Monocytes % (Manual) 4 (0.0-15.0) % Nucleated RBC % 0.0 /100WBC Absolute Seg Neuts 19.3 H (1.4-5.7) Band Neutrophils # 0.4 Lymphocytes # (Manual) 1.3 (0.6-2.4) Monocytes # (Manual) 0.9 H (0.0-0.8) Nucleated RBCs # 0 K/uL INR Sodium (136-148) mmol/L Potassium (3.5-5.1) mmol/L Chloride (98-107) mmol/L Carbon Dioxide (21.0-32.0) mmol/L BUN (7.0-18.0) mg/dL Creatinine (0.8-1.3) mg/dL Est Cr Clr Drug Dosing mL/min Estimated GFR (MDRD) ml/min Glucose (74-106) mg/dL POC Glucose 276 H 230 H (70-99) mg/dL Calcium (8.5-10.1) mg/dL Magnesium (1.8-2.4) mg/dL 04/18/21 04/18/21 04/18/21 Range/Units 05:35 05:35 07:51 WBC (4.0-11.0) K/uL RBC (4.50-5.90) M/uL Hgb (13.0-17.0) g/dL Hct (38.0-50.0) % MCV (80.0-98.0) fL MCH (27.0-32.0) pg MCHC (31.0-37.0) g/dL RDW Std Deviation (28.0-62.0) fl RDW Coeff of Sunny (11.0-15.0) % Plt Count (150-400) K/uL MPV (7.40-12.00) fL Add Manual Diff Neutrophils % (Manual) (48.0-80.0) % Band Neutrophils % % Lymphocytes % (Manual) (16.0-40.0) % Monocytes % (Manual) (0.0-15.0) % Nucleated RBC % /100WBC Absolute Seg Neuts (1.4-5.7) Band Neutrophils # Lymphocytes # (Manual) (0.6-2.4) Monocytes # (Manual) (0.0-0.8) Nucleated RBCs # K/uL INR 1.46 Sodium 143 (136-148) mmol/L Potassium 4.3 (3.5-5.1) mmol/L Chloride 103 (98-107) mmol/L Carbon Dioxide 40.8 H (21.0-32.0) mmol/L BUN 42 H (7.0-18.0) mg/dL Creatinine 1.1 (0.8-1.3) mg/dL Est Cr Clr Drug Dosing 65.73 mL/min Estimated GFR (MDRD) > 60.0 ml/min Glucose 192 H (74-106) mg/dL POC Glucose 194 H (70-99) mg/dL Calcium 8.5 (8.5-10.1) mg/dL Magnesium 3.0 H (1.8-2.4) mg/dL Result Diagrams: 04/18/21 05:35 04/18/21 05:35 Sepsis Event Note - Evaluation Sepsis Screening Result: No Definite Risk - Focused Exam Vital Signs: Vital Signs Temp Pulse Resp BP Pulse Ox 04/18/21 07:37 97.9 F 80 20 143/77 H 92 L 04/18/21 05:00 97 F 77 20 125/69 94 L 04/18/21 00:00 98.4 F 79 20 128/62 90 L 04/17/21 22:45 89 L 04/17/21 22:00 97.9 F 80 21 H 132/62 95 - Problem List & Annotations (1) Acute on chronic respiratory failure with hypoxia and hypercapnia SNOMED Code(s): 79930297724453 Code(s): J96.21 - ACUTE AND CHRONIC RESPIRATORY FAILURE WITH HYPOXIA; J96.22 - ACUTE AND CHRONIC RESPIRATORY FAILURE WITH HYPERCAPNIA Status: Acute Current Visit: Yes (2) Cellulitis SNOMED Code(s): 011928629 Code(s): L03.90 - CELLULITIS, UNSPECIFIED Status: Acute Current Visit: Yes Qualifiers: Site of cellulitis: extremity Site of cellulitis of extremity: upper extremity Laterality: left Qualified Code(s): L03.114 - Cellulitis of left upper limb (3) Anasarca SNOMED Code(s): 830918350, 203526261 Code(s): R60.1 - GENERALIZED EDEMA Status: Acute Current Visit: Yes (4) Hypoalbuminemia SNOMED Code(s): 324411432 Code(s): E88.09 - OTH DISORDERS OF PLASMA-PROTEIN METABOLISM, NEC Status: Acute Current Visit: Yes (5) Atypical pneumonia SNOMED Code(s): 692465124 Code(s): J18.9 - PNEUMONIA, UNSPECIFIED ORGANISM Status: Acute Current Visit: No (6) Constipation SNOMED Code(s): 82437029 Code(s): K59.00 - CONSTIPATION, UNSPECIFIED Status: Acute Current Visit: No (7) Chronic respiratory failure with hypoxia SNOMED Code(s): 974649624 Code(s): J96.11 - CHRONIC RESPIRATORY FAILURE WITH HYPOXIA Status: Chronic Current Visit: No (8) History of DVT (deep vein thrombosis) SNOMED Code(s): 276446485 Code(s): Z86.718 - PERSONAL HISTORY OF OTHER VENOUS THROMBOSIS AND EMBOLISM Status: Chronic Current Visit: No (9) Hypothyroidism SNOMED Code(s): 19563516 Code(s): E03.9 - HYPOTHYROIDISM, UNSPECIFIED Status: Chronic Current Visit: No (10) Oxygen dependent SNOMED Code(s): 586085035470 Code(s): Z99.81 - DEPENDENCE ON SUPPLEMENTAL OXYGEN Status: Chronic Current Visit: No (11) Pulmonary fibrosis SNOMED Code(s): 96198282 Code(s): J84.10 - PULMONARY FIBROSIS, UNSPECIFIED Status: Chronic Current Visit: No (12) Pulmonary edema SNOMED Code(s): 72664394 Code(s): J81.1 - CHRONIC PULMONARY EDEMA Status: Acute Current Visit: Yes (13) Hyperglycemia, drug-induced SNOMED Code(s): 047481736 Code(s): R73.9 - HYPERGLYCEMIA, UNSPECIFIED; T50.905A - ADVERSE EFFECT OF UNSP DRUG/MEDS/BIOL SUBST, INIT Status: Acute Current Visit: Yes (14) Stage I pressure ulcer of buttock SNOMED Code(s): 20294435652140175, 28734904997288209 Code(s): L89.301 - PRESSURE ULCER OF UNSPECIFIED BUTTOCK, STAGE 1 Status: Acute Current Visit: Yes Qualifiers: Laterality: unspecified laterality Qualified Code(s): L89.301 - Pressure ulcer of unspecified buttock, stage 1 - Problem List Review Problem List Initiated/Reviewed/Updated: Yes - My Orders Last 24 Hours: My Active Orders 04/17/21 09:52 polyethylene glycoL 3350 [MiraLAX] 17 gm PO DAILY PRN 04/17/21 10:01 Transfer Patient (Change bed) [ADT] Routine 04/17/21 10:03 Telemetry Monitoring [Cardiac Monitoring] [RC] Q8H 04/17/21 10:06 RT Acapella [RESPCARE] Urgent 04/17/21 18:00 methylPREDNISolone Sod Succ [Solu-MEDROL] 40 mg IVPUSH Q12H 04/18/21 09:36 Chest 1V Frontal [CR] Urgent - Plan Plan:: 80 y/o M admitted for left arm cellulitis who then developed acute on chronic hypoxic respiratory failure. 1. Acute on chronic hypoxic hypercapnic respiratory failure secondary to pulmonary edema, pulmonary fibrosis and possible CAP -Continue currently on 5 L nasal cannula -discontinue Zosyn today as no acute infection is noted. -Continue Lasix to 40 mg IV TID, -Continue steroids decreased to 40 every 12 hours -DuoNebs as needed -Repeat chest x-ray shows diffuse bilateral coarse interstitial infiltrates persist but have slightly improved no lobar consolidations or significant effusions no pneumothorax. 3. Hyperglycemia due to steroid therapy -SSI high -Continue 5 units NovoLog to sliding scale at each meal -Continue diabetic diet - Lantus 20 units daily -steadily improving 4. Hypothyroidism -Continue levothyroxine 5. History DVT on Coumadin -INR 1.46 today -Appreciate pharmacy's assistance in dosing. 6. Stage I decubitus ulcer to buttocks -Wound care consulted -Reposition every 2 hours, has been declining frequent reposition -PT to consult to help with activity level and reconditioning. 7. Afib - Monitor on telemetry, no further events. - Paroxysmal afib noted 04/15, rate controlled, BP controlled. No distress. -Remains on chronic anticoagulation. VTE prophylaxis: Warfarin GI prophylaxis: Protonix CODE STATUS CPR only, declines intubation if needed. Dispo: No discharge to [facility] today. Discussed with patient that goals of care discussion needs to be had as we are concerned that his respiratory status will again worsen in his quality of life may be impaired by potentially futile treatment for progressively worsening pulmonary fibrosis. This was discussed with patient by myself as well as Dr. Geiger. I spoke with daughter Bethany on the phone after rounds. I discussed our concern regarding his respiratory status and the fragile state as he could potentially worsen at any moment even if he is discharged back to [place]. I also expressed her concerns regarding his mood has changed in the last few days as I feel he is starting to comprehend and fully register his pulmonary status is not going to return to normal and that his ultimate goal of walking and getting back to the far is extremely unrealistic. We expressed and highly recommend at least palliative care but hospice would be very much appropriate. Bethany was very appreciative of recommendations and would speak with her father this evening she had no concerns. She did discuss potential antidepressant which could be started but the ultimate potential for benefit may be futile. Updated Dr. Geiger regarding her discussion will await discussion between patient and family and ultimate family decision on palliative measures and hospice. Also expressed to daughter over the phone that if hospice was decided we would ensure he is stable on a regimen of treatment prior to transfer back to [place]. And if at some point he becomes unstable and transfer would be inappropriate due to imminent passing the transfer would be held.
--- NOTE | 2021-04-18 10:37 | CR ---
Indication: Dyspnea Technique: Chest 1 view Comparison: 04/11/2021 Findings/Impression: Cardiovascular and mediastinum: Stable cardiomegaly. Lungs and pleural space: Diffuse bilateral coarse interstitial infiltrates persist but have slightly improved. No lobar consolidations or significant effusions. No pneumothorax. Bones and soft tissues: No acute findings. Dictated by Joshua Ramirez MD @ 04/18/2021 10:35:[address] Joshua Ramirez @ Apr 18 2021 10:35AM
[2021-04-18] MEDS ORDERED: Warfarin 2 MG Tab PO ONE (14:30)
[2021-04-18] MEDS: atorvaSTATin 40 MG Tab PO SCH (20:23)
[2021-04-19] MEDS: methylPREDNISolone Sodium Succinate 40 MG/1 ML SDV IVPUSH SCH ×3 (06:20→22:13)
[2021-04-19] MEDS: Furosemide 40 MG/4 ML VIAL IVPUSH SCH ×3 (06:21→22:12)
[2021-04-19] MEDS: Nystatin Topical Powder 15 GM Bottle TOP SCH ×3 (06:21→22:12)
[2021-04-19] MEDS: Levothyroxine 150 MCG Tab PO SCH (06:29)
[2021-04-19] MEDS: Pantoprazole 40 MG Tab.CR PO SCH (06:29)
[2021-04-19 07:26] LABS: BLOOD UREA NITROGEN,BUN 43 mg/dL (7.0-18.0); CARBON DIOXIDE,CO2 42.8 mmol/L (21.0-32.0); CHLORIDE,CL 101 mmol/L (98-107); GLUCOSE RANDOM 190 mg/dL (74-106); SODIUM,NA 143 mmol/L (136-148)
[2021-04-19] MEDS: Budesonide 0.5 MG/2 ML Neb Susp INH SCH ×2 (08:53→22:12)
[2021-04-19] MEDS: Aspirin 81 MG Tab.Chew PO SCH (09:35)
[2021-04-19] MEDS: Insulin Glargine,Human Rec. Analog 100 Units/ML 3 ML Pen SUBCUT SCH (09:36)
[2021-04-19] MEDS: Insulin Aspart 100 Units/ML 3 ML Pen SUBCUT SCH ×6 (09:40→20:04)
[2021-04-19] MEDS ORDERED: Warfarin 2 MG Tab PO ONE (14:15)
--- NOTE | 2021-04-19 14:22 | PCM.PN ---
- General Info Date of Service: 04/19/21 Admission Dx/Problem (Free Text): Admission Diagnosis/Problem Admission Diagnosis/Problem Cellulitis Subjective Update: Patient reports he is feeling weak, same as yesterday, patient was put back on vapotherm high flow at 30 Lts, . Functional Status: Reports: Pain Controlled, Tolerating Diet, Urinating. Denies: Ambulating - Review of Systems General: Reports: Weakness, Fatigue, Malaise. Denies: Fever Pulmonary: Reports: Shortness of Breath, Cough. Denies: Pleuritic Chest Pain Cardiovascular: Reports: Dyspnea on Exertion. Denies: Chest Pain, Palpitations Gastrointestinal: Denies: Abdominal Pain, Constipation, Decreased Appetite Genitourinary: Denies: Dysuria, Frequency, Burning Musculoskeletal: Denies: Neck Pain, Shoulder Pain, Arm Pain - Patient Data Vitals - Most Recent: Last Vital Signs Temp 36.0 C L 04/19/21 12:00 Pulse 85 04/19/21 12:00 Resp 20 04/19/21 12:00 BP 129/67 04/19/21 12:00 Pulse Ox 96 04/19/21 12:00 Weight - Most Recent: 114.351 kg I&O - Last 24 Hours: Intake & Output 04/18/21 04/19/21 04/19/21 22:59 06:59 14:59 Intake Total 700 800 Output Total 1250 1130 Balance -550 -330 Lab Results Last 24 Hours: Laboratory Results - last 24 hr 04/18/21 04/19/21 04/19/21 Range/Units 17:24 06:16 06:16 WBC 21.83 H (4.0-11.0) K/uL RBC 4.31 L (4.50-5.90) M/uL Hgb 13.9 (13.0-17.0) g/dL Hct 43.9 (38.0-50.0) % MCV 101.9 H (80.0-98.0) fL MCH 32.3 H (27.0-32.0) pg MCHC 31.7 (31.0-37.0) g/dL RDW Std Deviation 52.0 (28.0-62.0) fl RDW Coeff of Sunny 14 (11.0-15.0) % Plt Count 171 (150-400) K/uL MPV 13.10 H (7.40-12.00) fL Neut % (Auto) 91.9 H (48.0-80.0) % Lymph % (Auto) 1.8 L (16.0-40.0) % [place] % (Auto) 6.2 (0.0-15.0) % Eos % (Auto) 0.0 (0.0-7.0) % Baso % (Auto) 0.1 (0.0-1.5) % Neut # (Auto) 20.1 H (1.4-5.7) K/uL Lymph # (Auto) 0.4 L (0.6-2.4) K/uL [place] # (Auto) 1.4 H (0.0-0.8) K/uL Eos # (Auto) 0.0 (0.0-0.7) K/uL Baso # (Auto) 0.0 (0.0-0.1) K/uL Nucleated RBC % 0.2 /100WBC Nucleated RBCs # 0 K/uL Sodium 143 (136-148) mmol/L Potassium 4.0 (3.5-5.1) mmol/L Chloride 101 (98-107) mmol/L Carbon Dioxide 42.8 H (21.0-32.0) mmol/L BUN 43 H (7.0-18.0) mg/dL Creatinine 1.0 (0.8-1.3) mg/dL Est Cr Clr Drug Dosing 72.30 mL/min Estimated GFR (MDRD) > 60.0 ml/min Glucose 190 H (74-106) mg/dL POC Glucose 219 H (70-99) mg/dL Calcium 8.5 (8.5-10.1) mg/dL Magnesium 3.0 H (1.8-2.4) mg/dL 04/19/21 04/19/21 Range/Units 06:31 12:11 WBC (4.0-11.0) K/uL RBC (4.50-5.90) M/uL Hgb (13.0-17.0) g/dL Hct (38.0-50.0) % MCV (80.0-98.0) fL MCH (27.0-32.0) pg MCHC (31.0-37.0) g/dL RDW Std Deviation (28.0-62.0) fl RDW Coeff of Sunny (11.0-15.0) % Plt Count (150-400) K/uL MPV (7.40-12.00) fL Neut % (Auto) (48.0-80.0) % Lymph % (Auto) (16.0-40.0) % [place] % (Auto) (0.0-15.0) % Eos % (Auto) (0.0-7.0) % Baso % (Auto) (0.0-1.5) % Neut # (Auto) (1.4-5.7) K/uL Lymph # (Auto) (0.6-2.4) K/uL [place] # (Auto) (0.0-0.8) K/uL Eos # (Auto) (0.0-0.7) K/uL Baso # (Auto) (0.0-0.1) K/uL Nucleated RBC % /100WBC Nucleated RBCs # K/uL Sodium (136-148) mmol/L Potassium (3.5-5.1) mmol/L Chloride (98-107) mmol/L Carbon Dioxide (21.0-32.0) mmol/L BUN (7.0-18.0) mg/dL Creatinine (0.8-1.3) mg/dL Est Cr Clr Drug Dosing mL/min Estimated GFR (MDRD) ml/min Glucose (74-106) mg/dL POC Glucose 167 H 285 H (70-99) mg/dL Calcium (8.5-10.1) mg/dL Magnesium (1.8-2.4) mg/dL Med Orders - Current: Current Medications Albuterol/Ipratropium (Albuterol/Ipratropium 3.0-0.5 Mg/3 Ml Neb Soln) 3 ml NEB Q4HRRT PRN PRN Reason: Shortness of Breath Last Admin: 04/05/21 12:07 Dose: 3 ml Documented by: Aspirin (Aspirin 81 Mg Tab.Chew) 81 mg PO DAILY [facility] Last Admin: 04/19/21 09:35 Dose: 81 mg Documented by: Atorvastatin Calcium (Atorvastatin 40 Mg Tab) 40 mg PO BEDTIME [facility] Last Admin: 04/18/21 20:23 Dose: 40 mg Documented by: Bisacodyl (Bisacodyl 10 Mg Supp) 10 mg RECTAL DAILY PRN PRN Reason: if no BM in 2 days Budesonide (Budesonide 0.5 Mg/2 Ml Neb Susp) 1 mg INH BID [facility] Last Admin: 04/19/21 08:53 Dose: 1 mg Documented by: Dextrose/Water (50% Dextrose In Water 50 Ml Syringe) 50 ml IVPUSH ASDIRECTED PRN PRN Reason: Hypoglycemia Docusate Sodium (Docusate Sodium 100 Mg Cap) 100 mg PO DAILY PRN PRN Reason: Constipation Furosemide (Furosemide 40 Mg/4 Ml Vial) 40 mg IVPUSH TID [facility] Last Admin: 04/19/21 06:21 Dose: 40 mg Documented by: Glucagon (Glucagon,Human Recombinant 1 Mg Vial) 1 mg IM ASDIRECTED PRN PRN Reason: Hypoglycemia Insulin Aspart (Insulin Aspart 100 Units/Ml 3 Ml Pen) 0 unit SUBCUT TIDAC [facility]; Protocol Last Admin: 04/19/21 09:41 Dose: 3 units Documented by: Insulin Aspart (Insulin Aspart 100 Units/Ml 3 Ml Pen) 5 unit SUBCUT TIDAC [facility] Last Admin: 04/19/21 09:40 Dose: 5 units Documented by: Insulin Glargine (Insulin Glargine,Human Rec. Analog 100 Units/Ml 3 Ml Pen) 20 units SUBCUT DAILY [facility] Last Admin: 04/19/21 09:36 Dose: 20 units Documented by: Levothyroxine Sodium (Levothyroxine 150 Mcg Tab) 150 mcg PO ACBREAKFAST [facility] Last Admin: 04/19/21 06:29 Dose: 150 mcg Documented by: Methylprednisolone Sodium Succinate (Methylprednisolone Sodium Succinate 40 Mg/1 Ml Sdv) 40 mg IVPUSH Q12H [facility] Last Admin: 04/19/21 06:20 Dose: 40 mg Documented by: Multi-Ingred Cream/Lotion/Oil/Oint (Zinc Oxide 13% Crm 56 Gm Tube) 0 gm TOP ASD IRECTED PRN PRN Reason: Skin protectant Last Admin: 04/15/21 10:57 Dose: 1 applic Documented by: Nystatin (Nystatin Topical Powder 15 Gm Bottle) 0 gm TOP TID [facility] Last Admin: 04/19/21 06:21 Dose: 1 applic Documented by: Pantoprazole Sodium (Pantoprazole 40 Mg Tab.Cr) 40 mg PO ACBREAKFAST [facility] Last Admin: 04/19/21 06:29 Dose: 40 mg Documented by: Polyethylene Glycol (Polyethylene Glycol 3350 Powder 17 Gm Packet) 17 gm PO DAILY PRN PRN Reason: if no BM in 2 days Sodium Chloride (Sodium Chloride 0.65% Nasal [place] 45 Ml Bottle) 0 ml CADE QID PRN PRN Reason: nasal congestion Warfarin Sodium (Warfarin Ask Dosing) 1 each PO Q24H [facility] Last Admin: 04/18/21 15:29 Dose: Not Given Documented by: Discontinued Medications Acetazolamide (Acetazolamide 250 Mg Tab) 500 mg PO ONETIME ONE Stop: 04/14/21 09:49 Last Admin: 04/14/21 10:40 Dose: 500 mg Documented by: Albuterol/Ipratropium (Albuterol/Ipratropium 3.0-0.5 Mg/3 Ml Neb Soln) 3 ml INH TID PRN PRN Reason: Shortness of Breath Aspirin (Aspirin 81 Mg Tab.Chew) 324 mg PO ONETIME ONE Stop: 04/04/21 16:13 Last Admin: 04/04/21 16:26 Dose: 324 mg Documented by: Azithromycin (Azithromycin 250 Mg Tab) 500 mg PO Q24H [facility] Last Admin: 04/16/21 14:02 Dose: 500 mg Documented by: Budesonide (Budesonide 0.5 Mg/2 Ml Neb Susp) 1 mg INH TID [facility] Last Admin: 04/16/21 14:04 Dose: 1 mg Documented by: Budesonide (Budesonide 0.5 Mg/2 Ml Neb Susp) Confirm Administered Dose 0.5 mg .ROUTE .STK-MED ONE Stop: 04/07/21 06:24 Last Admin: 04/07/21 15:59 Dose: Not Given Documented by: Dextrose/Water (50% Dextrose In Water 50 Ml Syringe) 50 ml IV ASDIRECTED PRN PRN Reason: Hypoglycemia Dextrose/Water (50% Dextrose In Water 50 Ml Syringe) 50 ml IV ASDIRECTED PRN PRN Reason: Hypoglycemia Dextrose/Water (50% Dextrose In Water 50 Ml Syringe) 50 ml IV ASDIRECTED PRN PRN Reason: Hypoglycemia Dextrose/Water (50% Dextrose In Water 50 Ml Syringe) 50 ml IVPUSH ASDIRECTED PRN PRN Reason: Hypoglycemia Docusate Sodium (Docusate Sodium 100 Mg Cap) 100 mg PO DAILY [facility] Last Admin: 04/11/21 09:05 Dose: Not Given Documented by: Enoxaparin Sodium (Enoxaparin 40 Mg/0.4 Ml Syringe) 40 mg SUBCUT Q12HR [facility] Last Admin: 04/07/21 08:32 Dose: 40 mg Documented by: Furosemide (Furosemide 20 Mg/2 Ml Vial) 20 mg IVPUSH ONETIME ONE Stop: 04/04/21 22:18 Last Admin: 04/04/21 23:02 Dose: 20 mg Documented by: Furosemide (Furosemide 40 Mg/4 Ml Vial) 20 mg IVPUSH NOW ONE Stop: 04/05/21 09:07 Last Admin: 04/05/21 09:39 Dose: 20 mg Documented by: Furosemide (Furosemide 40 Mg/4 Ml Vial) 20 mg IVPUSH ONETIME ONE Stop: 04/05/21 17:01 Last Admin: 04/05/21 16:48 Dose: Not Given Documented by: Furosemide (Furosemide 40 Mg/4 Ml Vial) 40 mg IVPUSH DAILY [facility] Last Admin: 04/07/21 08:27 Dose: 40 mg Documented by: Furosemide (Furosemide 20 Mg/2 Ml Vial) Confirm Administered Dose 20 mg .ROUTE .STK-MED ONE Stop: 04/05/21 21:47 Last Admin: 04/05/21 22:10 Dose: Not Given Documented by: Furosemide (Furosemide 40 Mg/4 Ml Vial) 20 mg IVPUSH NOW ONE Stop: 04/05/21 22:00 Last Admin: 04/05/21 22:09 Dose: 20 mg Documented by: Furosemide (Furosemide 40 Mg/4 Ml Vial) 40 mg IVPUSH BIDDIURETIC [facility] Last Admin: 04/08/21 08:15 Dose: 40 mg Documented by: Furosemide (Furosemide 40 Mg/4 Ml Vial) 40 mg IVPUSH NOW ONE Stop: 04/07/21 22:39 Last Admin: 04/07/21 22:45 Dose: 40 mg Documented by: Furosemide (Furosemide 40 Mg/4 Ml Vial) 40 mg IVPUSH TID [facility] Last Admin: 04/10/21 06:37 Dose: 40 mg Documented by: Furosemide (Furosemide 40 Mg/4 Ml Vial) 60 mg IVPUSH TID [facility] Last Admin: 04/11/21 06:18 Dose: 60 mg Documented by: Furosemide (Furosemide 100 Mg/10 Ml Sdv) 60 mg IVPUSH TID [facility] Last Admin: 04/16/21 05:51 Dose: 60 mg Documented by: Glucagon (Glucagon,Human Recombinant 1 Mg Vial) 1 mg IM ASDIRECTED PRN PRN Reason: Hypoglycemia Glucagon (Glucagon,Human Recombinant 1 Mg Vial) 1 mg IM ASDIRECTED PRN PRN Reason: Hypoglycemia Glucagon (Glucagon,Human Recombinant 1 Mg Vial) 1 mg IM ASDIRECTED PRN PRN Reason: Hypoglycemia Glucagon (Glucagon,Human Recombinant 1 Mg Vial) 1 mg IM ASDIRECTED PRN PRN Reason: Hypoglycemia Ceftriaxone Sodium/Dextrose 2 (gm/ Premix) 50 mls @ 100 mls/hr IV ONETIME ONE Stop: 04/04/21 17:58 Last Admin: 04/04/21 17:45 Dose: 100 mls/hr Documented by: Piperacillin Sod/Tazobactam (Sod 3.375 gm/ Sodium Chloride) 50 mls @ 100 mls/hr IV ONETIME ONE Stop: 04/04/21 21:32 Last Admin: 04/04/21 21:49 Dose: 100 mls/hr Documented by: Piperacillin Sod/Tazobactam (Sod 3.375 gm/ Sodium Chloride) 50 mls @ 100 mls/hr IV Q8H [facility] Last Admin: 04/18/21 06:32 Dose: 100 mls/hr Documented by: Vancomycin HCl 1.5 gm/ Premix 300 mls @ 200 mls/hr IV Q12H [facility] Last Admin: 04/06/21 23:14 Dose: Not Given Documented by: Vancomycin HCl 1.5 gm/ Premix 300 mls @ 200 mls/hr IV Q24H [facility] Last Admin: 04/15/21 10:56 Dose: 200 mls/hr Documented by: Dexmedetomidine/Sodium (Chloride 400 mcg/ Premix) 100 mls @ 6.084 mls/hr IV TITRATE [facility]; Protocol Insulin Aspart (Insulin Aspart 100 Units/Ml 3 Ml Pen) 7 unit SUBCUT ONETIME ONE Stop: 04/11/21 18:30 Last Admin: 04/11/21 18:40 Dose: 7 units Documented by: Insulin Aspart (Insulin Aspart 100 Units/Ml 3 Ml Pen) 5 unit SUBCUT ONETIME ONE Stop: 04/11/21 19:42 Last Admin: 04/11/21 19:50 Dose: 5 units Documented by: Insulin Aspart (Insulin Aspart 100 Units/Ml 10 Ml Vial) 10 unit SUBCUT ONETIME ONE Stop: 04/11/21 22:41 Last Admin: 04/11/21 22:53 Dose: 10 units Documented by: Insulin Aspart (Insulin Aspart 100 Units/Ml 10 Ml Vial) 10 unit SUBCUT ONETIME ONE Stop: 04/12/21 02:11 Last Admin: 04/12/21 02:16 Dose: 10 units Documented by: Iopamidol (Iopamidol 755 Mg/Ml 500 Ml Multipack Bottle) 100 ml IVPUSH ONETIME ONE Stop: 04/04/21 18:43 Last Admin: 04/04/21 18:44 Dose: 100 ml Documented by: Lorazepam (Lorazepam 2 Mg/Ml Sdv) 0.5 mg IVPUSH ONETIME PRN PRN Reason: Bipap Methylprednisolone Sodium Succinate (Methylprednisolone Sodium Succinate 40 Mg/1 Ml Sdv) 60 mg IVPUSH Q8H [facility] Last Admin: 04/15/21 06:48 Dose: 60 mg Documented by: Methylprednisolone Sodium Succinate (Methylprednisolone Sodium Succinate 40 Mg/1 Ml Sdv) 40 mg IVPUSH Q8H [facility] Last Admin: 04/17/21 05:59 Dose: 40 mg Documented by: Polyethylene Glycol (Polyethylene Glycol 3350 Powder 17 Gm Packet) 17 gm PO DAILY [facility] Last Admin: 04/17/21 09:22 Dose: 17 gm Documented by: Potassium Chloride (Potassium Chloride 20 Meq Tab.Er) 40 meq PO ONETIME ONE Stop: 04/06/21 12:31 Last Admin: 04/06/21 12:58 Dose: 40 meq Documented by: Potassium Chloride (Potassium Chloride 20 Meq Tab.Er) 40 meq PO ONETIME ONE Stop: 04/08/21 07:50 Last Admin: 04/08/21 08:15 Dose: 40 meq Documented by: Potassium Chloride (Potassium Chloride 20 Meq Tab.Er) 40 meq PO ONETIME ONE Stop: 04/08/21 12:01 Last Admin: 04/08/21 12:24 Dose: 40 meq Documented by: Potassium Chloride (Potassium Chloride 20 Meq Tab.Er) 40 meq PO TID [facility] Last Admin: 04/18/21 06:35 Dose: 40 meq Documented by: Prednisone (Prednisone 10 Mg Tab) 10 mg PO BEDTIME [facility] Last Admin: 04/07/21 22:28 Dose: 10 mg Documented by: Prednisone (Prednisone 20 Mg Tab) 20 mg PO DAILY [facility] Last Admin: 04/07/21 08:31 Dose: 20 mg Documented by: Tamsulosin HCl (Tamsulosin 0.4 Mg Cap.Er) 0.4 mg PO ONETIME ONE Stop: 04/05/21 19:16 Last Admin: 04/05/21 19:53 Dose: 0.4 mg Documented by: Vancomycin HCl (Pharmacy To Dose - Vancomycin) 1 dose .XX ASDIRECTED [facility] Warfarin Sodium (Warfarin 2 Mg Tab) 4 mg PO ONETIME ONE Stop: 04/05/21 14:01 Last Admin: 04/05/21 14:05 Dose: 4 mg Documented by: Warfarin Sodium (Warfarin 1 Mg Tab) 3 mg PO ONETIME ONE Stop: 04/06/21 14:01 Last Admin: 04/06/21 13:35 Dose: 3 mg Documented by: Warfarin Sodium (Warfarin 2 Mg Tab) 2 mg PO 04/07/21@1400 [facility] Stop: 04/07/21 15:00 Last Admin: 04/07/21 14:21 Dose: 2 mg Documented by: Warfarin Sodium (Warfarin 1 Mg Tab) 1 mg PO 04/08/21@1400 [facility] Stop: 04/08/21 16:00 Last Admin: 04/08/21 13:44 Dose: 1 mg Documented by: Warfarin Sodium (Warfarin 2.5 Mg Tab) 2.5 mg PO DAILY@1399 [facility] Stop: 04/12/21 15:00 Last Admin: 04/12/21 15:04 Dose: 2.5 mg Documented by: Warfarin Sodium (Warfarin 1 Mg Tab) 3 mg PO DAILY@1400 [facility] Stop: 04/13/21 15:00 Last Admin: 04/13/21 13:00 Dose: 3 mg Documented by: Warfarin Sodium (Warfarin 2.5 Mg Tab) 2.5 mg PO DAILY@1400 [facility] Stop: 04/14/21 15:00 Last Admin: 04/14/21 13:59 Dose: 2.5 mg Documented by: Warfarin Sodium (Warfarin 2.5 Mg Tab) 2.5 mg PO DAILY@1399 [facility] Stop: 04/15/21 15:00 Last Admin: 04/15/21 13:49 Dose: 2.5 mg Documented by: Warfarin Sodium (Warfarin 2.5 Mg Tab) 2.5 mg PO 04/17/21@1400 [facility] Stop: 04/17/21 16:00 Last Admin: 04/17/21 14:15 Dose: 2.5 mg Documented by: Warfarin Sodium (Warfarin 2 Mg Tab) 4 mg PO ONETIME ONE Stop: 04/18/21 14:31 Last Admin: 04/18/21 15:29 Dose: 4 mg Documented by: - Exam Quality Assessment: Supplemental Oxygen General: Alert, Oriented, Cooperative, Mild Distress Lungs: Decreased Breath Sounds, Crackles Cardiovascular: Regular Rate, Irregular Rhythm GI/Abdominal Exam: Normal Bowel Sounds, Soft, Non-Tender Extremities: Normal Inspection, Normal Range of Motion, Non-Tender - Patient Data Lab Results Last 24 hrs: Laboratory Results - last 24 hr 04/18/21 04/19/21 04/19/21 Range/Units 17:24 06:16 06:16 WBC 21.83 H (4.0-11.0) K/uL RBC 4.31 L (4.50-5.90) M/uL Hgb 13.9 (13.0-17.0) g/dL Hct 43.9 (38.0-50.0) % MCV 101.9 H (80.0-98.0) fL MCH 32.3 H (27.0-32.0) pg MCHC 31.7 (31.0-37.0) g/dL RDW Std Deviation 52.0 (28.0-62.0) fl RDW Coeff of Sunny 14 (11.0-15.0) % Plt Count 171 (150-400) K/uL MPV 13.10 H (7.40-12.00) fL Neut % (Auto) 91.9 H (48.0-80.0) % Lymph % (Auto) 1.8 L (16.0-40.0) % [place] % (Auto) 6.2 (0.0-15.0) % Eos % (Auto) 0.0 (0.0-7.0) % Baso % (Auto) 0.1 (0.0-1.5) % Neut # (Auto) 20.1 H (1.4-5.7) K/uL Lymph # (Auto) 0.4 L (0.6-2.4) K/uL [place] # (Auto) 1.4 H (0.0-0.8) K/uL Eos # (Auto) 0.0 (0.0-0.7) K/uL Baso # (Auto) 0.0 (0.0-0.1) K/uL Nucleated RBC % 0.2 /100WBC Nucleated RBCs # 0 K/uL Sodium 143 (136-148) mmol/L Potassium 4.0 (3.5-5.1) mmol/L Chloride 101 (98-107) mmol/L Carbon Dioxide 42.8 H (21.0-32.0) mmol/L BUN 43 H (7.0-18.0) mg/dL Creatinine 1.0 (0.8-1.3) mg/dL Est Cr Clr Drug Dosing 72.30 mL/min Estimated GFR (MDRD) > 60.0 ml/min Glucose 190 H (74-106) mg/dL POC Glucose 219 H (70-99) mg/dL Calcium 8.5 (8.5-10.1) mg/dL Magnesium 3.0 H (1.8-2.4) mg/dL 04/19/21 04/19/21 Range/Units 06:31 12:11 WBC (4.0-11.0) K/uL RBC (4.50-5.90) M/uL Hgb (13.0-17.0) g/dL Hct (38.0-50.0) % MCV (80.0-98.0) fL MCH (27.0-32.0) pg MCHC (31.0-37.0) g/dL RDW Std Deviation (28.0-62.0) fl RDW Coeff of Sunny (11.0-15.0) % Plt Count (150-400) K/uL MPV (7.40-12.00) fL Neut % (Auto) (48.0-80.0) % Lymph % (Auto) (16.0-40.0) % [place] % (Auto) (0.0-15.0) % Eos % (Auto) (0.0-7.0) % Baso % (Auto) (0.0-1.5) % Neut # (Auto) (1.4-5.7) K/uL Lymph # (Auto) (0.6-2.4) K/uL [place] # (Auto) (0.0-0.8) K/uL Eos # (Auto) (0.0-0.7) K/uL Baso # (Auto) (0.0-0.1) K/uL Nucleated RBC % /100WBC Nucleated RBCs # K/uL Sodium (136-148) mmol/L Potassium (3.5-5.1) mmol/L Chloride (98-107) mmol/L Carbon Dioxide (21.0-32.0) mmol/L BUN (7.0-18.0) mg/dL Creatinine (0.8-1.3) mg/dL Est Cr Clr Drug Dosing mL/min Estimated GFR (MDRD) ml/min Glucose (74-106) mg/dL POC Glucose 167 H 285 H (70-99) mg/dL Calcium (8.5-10.1) mg/dL Magnesium (1.8-2.4) mg/dL Result Diagrams: 04/19/21 06:16 04/19/21 06:16 Sepsis Event Note - Evaluation Sepsis Screening Result: No Definite Risk - Focused Exam Vital Signs: Vital Signs Temp Pulse Resp BP Pulse Ox 04/19/21 12:00 36.0 C L 85 20 129/67 96 04/19/21 08:00 35.7 C L 66 20 126/67 94 L 04/19/21 04:00 36.6 C 64 20 126/62 95 - Problem List & Annotations (1) Anasarca SNOMED Code(s): 325183387, 648440802 Code(s): R60.1 - GENERALIZED EDEMA Status: Acute Current Visit: Yes (2) Cellulitis SNOMED Code(s): 812628314 Code(s): L03.90 - CELLULITIS, UNSPECIFIED Status: Acute Current Visit: Yes Qualifiers: Site of cellulitis: extremity Site of cellulitis of extremity: upper extremity Laterality: left Qualified Code(s): L03.114 - Cellulitis of left upper limb (3) Hypoalbuminemia SNOMED Code(s): 377989088 Code(s): E88.09 - OTH DISORDERS OF PLASMA-PROTEIN METABOLISM, NEC Status: Acute Current Visit: Yes (4) Emphysema of lung SNOMED Code(s): 98994704 Code(s): J43.9 - EMPHYSEMA, UNSPECIFIED Status: Acute Current Visit: No (5) Ambulatory dysfunction SNOMED Code(s): 644711597 Code(s): R26.2 - DIFFICULTY IN WALKING, NOT ELSEWHERE CLASSIFIED Status: Chronic Current Visit: No (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) SNOMED Code(s): 428136582 Code(s): J84.89 - OTHER SPECIFIED INTERSTITIAL PULMONARY DISEASES Status: Chronic Current Visit: No (7) Chronic respiratory failure with hypoxia SNOMED Code(s): 266887451 Code(s): J96.11 - CHRONIC RESPIRATORY FAILURE WITH HYPOXIA Status: Chronic Current Visit: No (8) History of DVT (deep vein thrombosis) SNOMED Code(s): 986486285 Code(s): Z86.718 - PERSONAL HISTORY OF OTHER VENOUS THROMBOSIS AND EMBOLISM Status: Chronic Current Visit: No (9) Hypothyroidism SNOMED Code(s): 43734316 Code(s): E03.9 - HYPOTHYROIDISM, UNSPECIFIED Status: Chronic Current Visi t: No (10) Pulmonary fibrosis SNOMED Code(s): 29888637 Code(s): J84.10 - PULMONARY FIBROSIS, UNSPECIFIED Status: Chronic Current Visit: No (11) CVA (cerebral vascular accident) SNOMED Code(s): 547212993 Code(s): I63.9 - CEREBRAL INFARCTION, UNSPECIFIED Status: Ruled-out Current Visit: No - Problem List Review Problem List Initiated/Reviewed/Updated: Yes - Plan Plan:: 80 y/o M admitted for left arm cellulitis who then developed acute on chronic hypoxic respiratory failure. 1. Acute on chronic hypoxic hypercapnic respiratory failure secondary to pulmonary edema, pulmonary fibrosis and possible CAP -Continue currently on 30 L high flow -CXR noted, antibiotics have been stopped ater 2 week course -Continue Lasix to 40 mg IV TID, -Continue steroids increase back to q8h -DuoNebs as needed -Repeat chest x-ray shows diffuse bilateral coarse interstitial infiltrates persist but have slightly improved no lobar consolidations or significant effusions no pneumothorax. 3. Hyperglycemia due to steroid therapy -SSI high -Continue 5 units NovoLog to sliding scale at each meal -Continue diabetic diet - Lantus 20 units daily -steadily improving 4. Hypothyroidism -Continue levothyroxine 5. History DVT on Coumadin -INR 1.46 today -Appreciate pharmacy's assistance in dosing. 6. Stage I decubitus ulcer to buttocks -Wound care consulted -Reposition every 2 hours, has been declining frequent reposition -PT to consult to help with activity level and reconditioning. 7. Afib - Monitor on telemetry, no further events. - Paroxysmal afib noted 04/15, rate controlled, BP controlled. No distress. -Remains on chronic anticoagulation. VTE prophylaxis: Warfarin GI prophylaxis: Protonix CODE STATUS CPR only, declines intubation if needed. Dispo: Patient is back on high flow oxygen, not stable for dc to [facility] today, Discussed with patient that goals of care discussion needs to be had as we are concerned that his respiratory status will again worsen in his quality of life may be impaired by potentially futile treatment for progressively worsening pulmonary fibrosis. I spoke with daughter Bethany and rest of the children on the phone after rounds. I explained to them patient's worsening respiratory status after prolonged treatment for the past 2 weeks. Patient did have improvement few days back but now is back on high flow oxygen, I thoroughly explained patient's poor prognosis to the family and they are aware that patient will benefit from palliative/hospice care but at this point patient himself is not interested in those options as he wants to keep having aggressive care despite knowing the poor prognosis. Patient feels that " everybody is giving up on him", I explained to the patient that as his care team we are trying to present various options of goals of care so that his quality of life is not worsened. Family states that although they understand this poor prognosis but given that patient himself is not ready to transition to comfort care they will standby his decision as of now. Family wants to consider long-term acute care facility for transfer instead of [facility], I informed them patient is probably too acutely sick to be transferred to a long-term care facility but family requests psychotherapist social worker help to further look into that option. They are yet to discuss this with the patient and they are not even sure if the patient will agree to long-term care facility. I informed the family that given that its I have no clinical social worker available so this conversation will be carried forward on Wednesday. Patient's family was made aware of the rapidly worsening respiratory status in past 24 hours and then the possibility of possible transition to [facility] if the respiratory status keeps worsening which would further impede his ability to eat and drink properly. Family is aware and understands the situation and will further carry-on the goals of care and disposition conversation on Wednesday. In the meantime I will continue aggressive care as necessary for the patient. .
[2021-04-19] MEDS: atorvaSTATin 40 MG Tab PO SCH (22:12)
[2021-04-20] MEDS: Pantoprazole 40 MG Tab.CR PO SCH (06:41)
[2021-04-20] MEDS: Levothyroxine 150 MCG Tab PO SCH (06:41)
[2021-04-20] MEDS: methylPREDNISolone Sodium Succinate 40 MG/1 ML SDV IVPUSH SCH ×3 (06:42→21:12)
[2021-04-20] MEDS: Furosemide 40 MG/4 ML VIAL IVPUSH SCH ×3 (06:42→21:11)
[2021-04-20 06:53] LABS: BLOOD UREA NITROGEN,BUN 38 mg/dL (7.0-18.0); CARBON DIOXIDE,CO2 43.5 mmol/L (21.0-32.0); CHLORIDE,CL 99 mmol/L (98-107); GLUCOSE RANDOM 184 mg/dL (74-106); POTASSIUM,K 3.8 mmol/L (3.5-5.1); SODIUM,NA 140 mmol/L (136-148)
[2021-04-20] MEDS: Nystatin Topical Powder 15 GM Bottle TOP SCH ×3 (07:05→21:12)
[2021-04-20] MEDS: Budesonide 0.5 MG/2 ML Neb Susp INH SCH ×2 (08:44→21:11)
[2021-04-20] MEDS: Insulin Aspart 100 Units/ML 3 ML Pen SUBCUT SCH ×6 (08:44→18:06)
[2021-04-20] MEDS: Aspirin 81 MG Tab.Chew PO SCH (08:48)
[2021-04-20] MEDS: Insulin Glargine,Human Rec. Analog 100 Units/ML 3 ML Pen SUBCUT SCH (08:48)
--- NOTE | 2021-04-20 12:08 | PCM.PN ---
- General Info Date of Service: 04/20/21 Admission Dx/Problem (Free Text): Admission Diagnosis/Problem Admission Diagnosis/Problem Cellulitis Subjective Update: Patient reports resting in bed, no acute distress, on high flow NC, couldn't participate in PT yesterday Functional Status: Reports: Pain Controlled, Tolerating Diet, Urinating. De nies: Ambulating - Review of Systems General: Reports: Weakness, Malaise. Denies: Fever, Fatigue, Chills Pulmonary: Reports: Shortness of Breath, Cough, Sputum. Denies: Hemoptysis Cardiovascular: Reports: Dyspnea on Exertion. Denies: Chest Pain, Palpitations, Orthopnea Gastrointestinal: Denies: Abdominal Pain, Constipation, Decreased Appetite Genitourinary: Denies: Dysuria, Frequency, Burning Musculoskeletal: Denies: Neck Pain, Shoulder Pain, Arm Pain Skin: Denies: Cyanosis, Jaundice, Mottled Neurological: Denies: Confusion, Dizziness, Headache - Patient Data Vitals - Most Recent: Last Vital Signs Temp 37 C 04/20/21 07:38 Pulse 61 04/20/21 07:38 Resp 18 04/20/21 07:38 BP 112/63 04/20/21 07:38 Pulse Ox 93 L 04/20/21 07:38 Weight - Most Recent: 114.351 kg I&O - Last 24 Hours: Intake & Output 04/19/21 04/20/21 04/20/21 22:59 06:59 14:59 Intake Total 790 600 Output Total 1125 930 Balance -335 -330 Lab Results Last 24 Hours: Laboratory Results - last 24 hr 04/19/21 04/19/21 04/19/21 Range/Units 12:11 17:21 19:54 WBC (4.0-11.0) K/uL RBC (4.50-5.90) M/uL Hgb (13.0-17.0) g/dL Hct (38.0-50.0) % MCV (80.0-98.0) fL MCH (27.0-32.0) pg MCHC (31.0-37.0) g/dL RDW Std Deviation (28.0-62.0) fl RDW Coeff of Sunny (11.0-15.0) % Plt Count (150-400) K/uL MPV (7.40-12.00) fL Neut % (Auto) (48.0-80.0) % Lymph % (Auto) (16.0-40.0) % [place] % (Auto) (0.0-15.0) % Eos % (Auto) (0.0-7.0) % Baso % (Auto) (0.0-1.5) % Neut # (Auto) (1.4-5.7) K/uL Lymph # (Auto) (0.6-2.4) K/uL [place] # (Auto) (0.0-0.8) K/uL Eos # (Auto) (0.0-0.7) K/uL Baso # (Auto) (0.0-0.1) K/uL Nucleated RBC % /100WBC Nucleated RBCs # K/uL Sodium (136-148) mmol/L Potassium (3.5-5.1) mmol/L Chloride (98-107) mmol/L Carbon Dioxide (21.0-32.0) mmol/L BUN (7.0-18.0) mg/dL Creatinine (0.8-1.3) mg/dL Est Cr Clr Drug Dosing mL/min Estimated GFR (MDRD) ml/min Glucose (74-106) mg/dL POC Glucose 285 H 351 H 383 H (70-99) mg/dL Calcium (8.5-10.1) mg/dL Phosphorus (2.6-4.7) mg/dL Magnesium (1.8-2.4) mg/dL Troponin I (0.000-0.056) ng/mL 04/20/21 04/20/21 04/20/21 Range/Units 06:12 06:12 06:12 WBC 24.03 H (4.0-11.0) K/uL RBC 4.30 L (4.50-5.90) M/uL Hgb 13.9 (13.0-17.0) g/dL Hct 43.3 (38.0-50.0) % MCV 100.7 H (80.0-98.0) fL MCH 32.3 H (27.0-32.0) pg MCHC 32.1 (31.0-37.0) g/dL RDW Std Deviation 50.9 (28.0-62.0) fl RDW Coeff of Sunny 14 (11.0-15.0) % Plt Count 162 (150-400) K/uL MPV 13.00 H (7.40-12.00) fL Neut % (Auto) 93.6 H (48.0-80.0) % Lymph % (Auto) 2.9 L (16.0-40.0) % [place] % (Auto) 3.4 (0.0-15.0) % Eos % (Auto) 0.0 (0.0-7.0) % Baso % (Auto) 0.1 (0.0-1.5) % Neut # (Auto) 22.5 H (1.4-5.7) K/uL Lymph # (Auto) 0.7 (0.6-2.4) K/uL [place] # (Auto) 0.8 (0.0-0.8) K/uL Eos # (Auto) 0.0 (0.0-0.7) K/uL Baso # (Auto) 0.0 (0.0-0.1) K/uL Nucleated RBC % 0.0 /100WBC Nucleated RBCs # 0 K/uL Sodium 140 (136-148) mmol/L Potassium 3.8 (3.5-5.1) mmol/L Chloride 99 (98-107) mmol/L Carbon Dioxide 43.5 H (21.0-32.0) mmol/L BUN 38 H (7.0-18.0) mg/dL Creatinine 0.9 (0.8-1.3) mg/dL Est Cr Clr Drug Dosing 80.34 mL/min Estimated GFR (MDRD) > 60.0 ml/min Glucose 184 H (74-106) mg/dL POC Glucose (70-99) mg/dL Calcium 8.1 L (8.5-10.1) mg/dL Phosphorus 3.6 (2.6-4.7) mg/dL Magnesium 2.7 H (1.8-2.4) mg/dL Troponin I 0.056 (0.000-0.056) ng/mL 04/20/21 Range/Units 06:39 WBC (4.0-11.0) K/uL RBC (4.50-5.90) M/uL Hgb (13.0-17.0) g/dL Hct (38.0-50.0) % MCV (80.0-98.0) fL MCH (27.0-32.0) pg MCHC (31.0-37.0) g/dL RDW Std Deviation (28.0-62.0) fl RDW Coeff of Sunny (11.0-15.0) % Plt Count (150-400) K/uL MPV (7.40-12.00) fL Neut % (Auto) (48.0-80.0) % Lymph % (Auto) (16.0-40.0) % [place] % (Auto) (0.0-15.0) % Eos % (Auto) (0.0-7.0) % Baso % (Auto) (0.0-1.5) % Neut # (Auto) (1.4-5.7) K/uL Lymph # (Auto) (0.6-2.4) K/uL [place] # (Auto) (0.0-0.8) K/uL Eos # (Auto) (0.0-0.7) K/uL Baso # (Auto) (0.0-0.1) K/uL Nucleated RBC % /100WBC Nucleated RBCs # K/uL Sodium (136-148) mmol/L Potassium (3.5-5.1) mmol/L Chloride (98-107) mmol/L Carbon Dioxide (21.0-32.0) mmol/L BUN (7.0-18.0) mg/dL Creatinine (0.8-1.3) mg/dL Est Cr Clr Drug Dosing mL/min Estimated GFR (MDRD) ml/min Glucose (74-106) mg/dL POC Glucose 164 H (70-99) mg/dL Calcium (8.5-10.1) mg/dL Phosphorus (2.6-4.7) mg/dL Magnesium (1.8-2.4) mg/dL Troponin I (0.000-0.056) ng/mL Med Orders - Current: Current Medications Albuterol/Ipratropium (Albuterol/Ipratropium 3.0-0.5 Mg/3 Ml Neb Soln) 3 ml NEB Q4HRRT PRN PRN Reason: Shortness of Breath Last Admin: 04/05/21 12:07 Dose: 3 ml Documented by: Aspirin (Aspirin 81 Mg Tab.Chew) 81 mg PO DAILY [facility] Last Admin: 04/20/21 08:48 Dose: 81 mg Documented by: Atorvastatin Calcium (Atorvastatin 40 Mg Tab) 40 mg PO BEDTIME [facility] Last Admin: 04/19/21 22:12 Dose: 40 mg Documented by: Bisacodyl (Bisacodyl 10 Mg Supp) 10 mg RECTAL DAILY PRN PRN Reason: if no BM in 2 days Budesonide (Budesonide 0.5 Mg/2 Ml Neb Susp) 1 mg INH BID [facility] Last Admin: 04/20/21 08:44 Dose: 1 mg Documented by: Dextrose/Water (50% Dextrose In Water 50 Ml Syringe) 50 ml IVPUSH ASDIRECTED PRN PRN Reason: Hypoglycemia Docusate Sodium (Docusate Sodium 100 Mg Cap) 100 mg PO DAILY PRN PRN Reason: Constipation Furosemide (Furosemide 40 Mg/4 Ml Vial) 40 mg IVPUSH TID [facility] Last Admin: 04/20/21 06:42 Dose: 40 mg Documented by: Glucagon (Glucagon,Human Recombinant 1 Mg Vial) 1 mg IM ASDIRECTED PRN PRN Reason: Hypoglycemia Insulin Aspart (Insulin Aspart 100 Units/Ml 3 Ml Pen) 0 unit SUBCUT TIDAC [facility]; Protocol Last Admin: 04/20/21 08:46 Dose: 3 units Documented by: Insulin Aspart (Insulin Aspart 100 Units/Ml 3 Ml Pen) 5 unit SUBCUT TIDAC [facility] Last Admin: 04/20/21 08:44 Dose: 5 units Documented by: Insulin Glargine (Insulin Glargine,Human Rec. Analog 100 Units/Ml 3 Ml Pen) 20 units SUBCUT DAILY [facility] Last Admin: 04/20/21 08:48 Dose: 20 units Documented by: Levothyroxine Sodium (Levothyroxine 150 Mcg Tab) 150 mcg PO ACBREAKFAST [facility] Last Admin: 04/20/21 06:41 Dose: 150 mcg Documented by: Methylprednisolone Sodium Succinate (Methylprednisolone Sodium Succinate 40 Mg/1 Ml Sdv) 40 mg IVPUSH Q8H [facility] Last Admin: 04/20/21 06:42 Dose: 40 mg Documented by: Multi-Ingred Cream/Lotion/Oil/Oint (Zinc Oxide 13% Crm 56 Gm Tube) 0 gm TOP ASDIRECTED PRN PRN Reason: Skin protectant Last Admin: 04/15/21 10:57 Dose: 1 applic Documented by: Nystatin (Nystatin Topical Powder 15 Gm Bottle) 0 gm TOP TID [facility] Last Admin: 04/20/21 07:05 Dose: 1 applic Documented by: Pantoprazole Sodium (Pantoprazole 40 Mg Tab.Cr) 40 mg PO ACBREAKFAST [facility] Last Admin: 04/20/21 06:41 Dose: 40 mg Documented by: Polyethylene Glycol (Polyethylene Glycol 3350 Powder 17 Gm Packet) 17 gm PO DAILY PRN PRN Reason: if no BM in 2 days Sodium Chloride (Sodium Chloride 0.65% Nasal [place] 45 Ml Bottle) 0 ml CADE QID PRN PRN Reason: nasal congestion Warfarin Sodium (Warfarin Ask Dosing) 1 each PO Q24H [facility] Last Admin: 04/19/21 14:36 Dose: Not Given Documented by: Warfarin Sodium (Warfarin 2.5 Mg Tab) 2.5 mg PO DAILY@1400 [facility] Stop: 04/20/21 15:00 Discontinued Medications Acetazolamide (Acetazolamide 250 Mg Tab) 500 mg PO ONETIME ONE Stop: 04/14/21 09:49 Last Admin: 04/14/21 10:40 Dose: 500 mg Documented by: Albuterol/Ipratropium (Albuterol/Ipratropium 3.0-0.5 Mg/3 Ml Neb Soln) 3 ml INH TID PRN PRN Reason: Shortness of Breath Aspirin (Aspirin 81 Mg Tab.Chew) 324 mg PO ONETIME ONE Stop: 04/04/21 16:13 Last Admin: 04/04/21 16:26 Dose: 324 mg Documented by: Azithromycin (Azithromycin 250 Mg Tab) 500 mg PO Q24H [facility] Last Admin: 04/16/21 14:02 Dose: 500 mg Documented by: Budesonide (Budesonide 0.5 Mg/2 Ml Neb Susp) 1 mg INH TID [facility] Last Admin: 04/16/21 14:04 Dose: 1 mg Documented by: Budesonide (Budesonide 0.5 Mg/2 Ml Neb Susp) Confirm Administered Dose 0.5 mg .ROUTE .STK-MED ONE Stop: 04/07/21 06:24 Last Admin: 04/07/21 15:59 Dose: Not Given Documented by: Dextrose/Water (50% Dextrose In Water 50 Ml Syringe) 50 ml IV ASDIRECTED PRN PRN Reason: Hypoglycemia Dextrose/Water (50% Dextrose In Water 50 Ml Syringe) 50 ml IV ASDIRECTED PRN PRN Reason: Hypoglycemia Dextrose/Water (50% Dextrose In Water 50 Ml Syringe) 50 ml IV ASDIRECTED PRN PRN Reason: Hypoglycemia Dextrose/Water (50% Dextrose In Water 50 Ml Syringe) 50 ml IVPUSH ASDIRECTED PRN PRN Reason: Hypoglycemia Docusate Sodium (Docusate Sodium 100 Mg Cap) 100 mg PO DAILY [facility] Last Admin: 04/11/21 09:05 Dose: Not Given Documented by: Enoxaparin Sodium (Enoxaparin 40 Mg/0.4 Ml Syringe) 40 mg SUBCUT Q12HR [facility] Last Admin: 04/07/21 08:32 Dose: 40 mg Documented by: Furosemide (Furosemide 20 Mg/2 Ml Vial) 20 mg IVPUSH ONETIME ONE Stop: 04/04/21 22:18 Last Admin: 04/04/21 23:02 Dose: 20 mg Documented by: Furosemide (Furosemide 40 Mg/4 Ml Vial) 20 mg IVPUSH NOW ONE Stop: 04/05/21 09:07 Last Admin: 04/05/21 09:39 Dose: 20 mg Documented by: Furosemide (Furosemide 40 Mg/4 Ml Vial) 20 mg IVPUSH ONETIME ONE Stop: 04/05/21 17:01 Last Admin: 04/05/21 16:48 Dose: Not Given Documented by: Furosemide (Furosemide 40 Mg/4 Ml Vial) 40 mg IVPUSH DAILY [facility] Last Admin: 04/07/21 08:27 Dose: 40 mg Documented by: Furosemide (Furosemide 20 Mg/2 Ml Vial) Confirm Administered Dose 20 mg .ROUTE .STK-MED ONE Stop: 04/05/21 21:47 Last Admin: 04/05/21 22:10 Dose: Not Given Documented by: Furosemide (Furosemide 40 Mg/4 Ml Vial) 20 mg IVPUSH NOW ONE Stop: 04/05/21 22:00 Last Admin: 04/05/21 22:09 Dose: 20 mg Documented by: Furosemide (Furosemide 40 Mg/4 Ml Vial) 40 mg IVPUSH BIDDIURETIC [facility] Last Admin: 04/08/21 08:15 Dose: 40 mg Documented by: Furosemide (Furosemide 40 Mg/4 Ml Vial) 40 mg IVPUSH NOW ONE Stop: 04/07/21 22:39 Last Admin: 04/07/21 22:45 Dose: 40 mg Documented by: Furosemide (Furosemide 40 Mg/4 Ml Vial) 40 mg IVPUSH TID [facility] Last Admin: 04/10/21 06:37 Dose: 40 mg Documented by: Furosemide (Furosemide 40 Mg/4 Ml Vial) 60 mg IVPUSH TID [facility] Last Admin: 04/11/21 06:18 Dose: 60 mg Documented by: Furosemide (Furosemide 100 Mg/10 Ml Sdv) 60 mg IVPUSH TID [facility] Last Admin: 04/16/21 05:51 Dose: 60 mg Documented by: Glucagon (Glucagon,Human Recombinant 1 Mg Vial) 1 mg IM ASDIRECTED PRN PRN Reason: Hypoglycemia Glucagon (Glucagon,Human Recombinant 1 Mg Vial) 1 mg IM ASDIRECTED PRN PRN Reason: Hypoglycemia Glucagon (Glucagon,Human Recombinant 1 Mg Vial) 1 mg IM ASDIRECTED PRN PRN Reason: Hypoglycemia Glucagon (Glucagon,Human Recombinant 1 Mg Vial) 1 mg IM ASDIRECTED PRN PRN Reason: Hypoglycemia Ceftriaxone Sodium/Dextrose 2 (gm/ Premix) 50 mls @ 100 mls/hr IV ONETIME ONE Stop: 04/04/21 17:58 Last Admin: 04/04/21 17:45 Dose: 100 mls/hr Documented by: Piperacillin Sod/Tazobactam (Sod 3.375 gm/ Sodium Chloride) 50 mls @ 100 mls/hr IV ONETIME ONE Stop: 04/04/21 21:32 Last Admin: 04/04/21 21:49 Dose: 100 mls/hr Documented by: Piperacillin Sod/Tazobactam (Sod 3.375 gm/ Sodium Chloride) 50 mls @ 100 mls/hr IV Q8H [facility] Last Admin: 04/18/21 06:32 Dose: 100 mls/hr Documented by: Vancomycin HCl 1.5 gm/ Premix 300 mls @ 200 mls/hr IV Q12H [facility] Last Admin: 04/06/21 23:14 Dose: Not Given Documented by: Vancomycin HCl 1.5 gm/ Premix 300 mls @ 200 mls/hr IV Q24H [facility] Last Admin: 04/15/21 10:56 Dose: 200 mls/hr Documented by: Dexmedetomidine/Sodium (Chloride 400 mcg/ Premix) 100 mls @ 6.084 mls/hr IV TITRATE [facility]; Protocol Insulin Aspart (Insulin Aspart 100 Units/Ml 3 Ml Pen) 7 unit SUBCUT ONETIME ONE Stop: 04/11/21 18:30 Last Admin: 04/11/21 18:40 Dose: 7 units Documented by: Insulin Aspart (Insulin Aspart 100 Units/Ml 3 Ml Pen) 5 unit SUBCUT ONETIME ONE Stop: 04/11/21 19:42 Last Admin: 04/11/21 19:50 Dose: 5 units Documented by: Insulin Aspart (Insulin Aspart 100 Units/Ml 10 Ml Vial) 10 unit SUBCUT ONETIME ONE Stop: 04/11/21 22:41 Last Admin: 04/11/21 22:53 Dose: 10 units Documented by: Insulin Aspart (Insulin Aspart 100 Units/Ml 10 Ml Vial) 10 unit SUBCUT ONETIME ONE Stop: 04/12/21 02:11 Last Admin: 04/12/21 02:16 Dose: 10 units Documented by: Iopamidol (Iopamidol 755 Mg/Ml 500 Ml Multipack Bottle) 100 ml IVPUSH ONETIME ONE Stop: 04/04/21 18:43 Last Admin: 04/04/21 18:44 Dose: 100 ml Documented by: Lorazepam (Lorazepam 2 Mg/Ml Sdv) 0.5 mg IVPUSH ONETIME PRN PRN Reason: Bipap Methylprednisolone Sodium Succinate (Methylprednisolone Sodium Succinate 40 Mg/1 Ml Sdv) 60 mg IVPUSH Q8H [facility] Last Admin: 04/15/21 06:48 Dose: 60 mg Documented by: Methylprednisolone Sodium Succinate (Methylprednisolone Sodium Succinate 40 Mg/1 Ml Sdv) 40 mg IVPUSH Q8H [facility] Last Admin: 04/17/21 05:59 Dose: 40 mg Documented by: Methylprednisolone Sodium Succinate (Methylprednisolone Sodium Succinate 40 Mg/1 Ml Sdv) 40 mg IVPUSH Q12H [facility] Last Admin: 04/19/21 06:20 Dose: 40 mg Documented by: Polyethylene Glycol (Polyethylene Glycol 3350 Powder 17 Gm Packet) 17 gm PO D AILY [facility] Last Admin: 04/17/21 09:22 Dose: 17 gm Documented by: Potassium Chloride (Potassium Chloride 20 Meq Tab.Er) 40 meq PO ONETIME ONE Stop: 04/06/21 12:31 Last Admin: 04/06/21 12:58 Dose: 40 meq Documented by: Potassium Chloride (Potassium Chloride 20 Meq Tab.Er) 40 meq PO ONETIME ONE Stop: 04/08/21 07:50 Last Admin: 04/08/21 08:15 Dose: 40 meq Documented by: Potassium Chloride (Potassium Chloride 20 Meq Tab.Er) 40 meq PO ONETIME ONE Stop: 04/08/21 12:01 Last Admin: 04/08/21 12:24 Dose: 40 meq Documented by: Potassium Chloride (Potassium Chloride 20 Meq Tab.Er) 40 meq PO TID [facility] Last Admin: 04/18/21 06:35 Dose: 40 meq Documented by: Prednisone (Prednisone 10 Mg Tab) 10 mg PO BEDTIME [facility] Last Admin: 04/07/21 22:28 Dose: 10 mg Documented by: Prednisone (Prednisone 20 Mg Tab) 20 mg PO DAILY [facility] Last Admin: 04/07/21 08:31 Dose: 20 mg Documented by: Tamsulosin HCl (Tamsulosin 0.4 Mg Cap.Er) 0.4 mg PO ONETIME ONE Stop: 04/05/21 19:16 Last Admin: 04/05/21 19:53 Dose: 0.4 mg Documented by: Vancomycin HCl (Pharmacy To Dose - Vancomycin) 1 dose .XX ASDIRECTED [facility] Warfarin Sodium (Warfarin 2 Mg Tab) 4 mg PO ONETIME ONE Stop: 04/05/21 14:01 Last Admin: 04/05/21 14:05 Dose: 4 mg Documented by: Warfarin Sodium (Warfarin 1 Mg Tab) 3 mg PO ONETIME ONE Stop: 04/06/21 14:01 Last Admin: 04/06/21 13:35 Dose: 3 mg Documented by: Warfarin Sodium (Warfarin 2 Mg Tab) 2 mg PO 04/07/21@1400 [facility] Stop: 04/07/21 15:00 Last Admin: 04/07/21 14:21 Dose: 2 mg Documented by: Warfarin Sodium (Warfarin 1 Mg Tab) 1 mg PO 04/08/21@1400 [facility] Stop: 04/08/21 16:00 Last Admin: 04/08/21 13:44 Dose: 1 mg Documented by: Warfarin Sodium (Warfarin 2.5 Mg Tab) 2.5 mg PO DAILY@1400 [facility] Stop: 04/12/21 15:00 Last Admin: 04/12/21 15:04 Dose: 2.5 mg Documented by: Warfarin Sodium (Warfarin 1 Mg Tab) 3 mg PO DAILY@1400 [facility] Stop: 04/13/21 15:00 Last Admin: 04/13/21 13:00 Dose: 3 mg Documented by: Warfarin Sodium (Warfarin 2.5 Mg Tab) 2.5 mg PO DAILY@1400 [facility] Stop: 04/14/21 15:00 Last Admin: 04/14/21 13:59 Dose: 2.5 mg Documented by: Warfarin Sodium (Warfarin 2.5 Mg Tab) 2.5 mg PO DAILY@1400 [facility] Stop: 04/15/21 15:00 Last Admin: 04/15/21 13:49 Dose: 2.5 mg Documented by: Warfarin Sodium (Warfarin 2.5 Mg Tab) 2.5 mg PO 04/17/21@1400 [facility] Stop: 04/17/21 16:00 Last Admin: 04/17/21 14:15 Dose: 2.5 mg Documented by: Warfarin Sodium (Warfarin 2 Mg Tab) 4 mg PO ONETIME ONE Stop: 04/18/21 14:31 Last Admin: 04/18/21 15:29 Dose: 4 mg Documented by: Warfarin Sodium (Warfarin 2 Mg Tab) 4 mg PO ONETIME ONE Stop: 04/19/21 14:16 Last Admin: 04/19/21 14:36 Dose: 4 mg Documented by: - Exam Quality Assessment: Supplemental Oxygen General: Alert, Oriented, Cooperative, Mild Distress Neck: Trachea Midline Lungs: Decreased Breath Sounds, Crackles Cardiovascular: Regular Rate, Regular Rhythm GI/Abdominal Exam: Normal Bowel Sounds, Soft, Non-Tender Extremities: Normal Inspection, Normal Range of Motion - Patient Data Lab Results Last 24 hrs: Laboratory Results - last 24 hr 04/19/21 04/19/21 04/19/21 Range/Units 12:11 17:21 19:54 WBC (4.0-11.0) K/uL RBC (4.50-5.90) M/uL Hgb (13.0-17.0) g/dL Hct (38.0-50.0) % MCV (80.0-98.0) fL MCH (27.0-32.0) pg MCHC (31.0-37.0) g/dL RDW Std Deviation (28.0-62.0) fl RDW Coeff of Sunny (11.0-15.0) % Plt Count (150-400) K/uL MPV (7.40-12.00) fL Neut % (Auto) (48.0-80.0) % Lymph % (Auto) (16.0-40.0) % [place] % (Auto) (0.0-15.0) % Eos % (Auto) (0.0-7.0) % Baso % (Auto) (0.0-1.5) % Neut # (Auto) (1.4-5.7) K/uL Lymph # (Auto) (0.6-2.4) K/uL [place] # (Auto) (0.0-0.8) K/uL Eos # (Auto) (0.0-0.7) K/uL Baso # (Auto) (0.0-0.1) K/uL Nucleated RBC % /100WBC Nucleated RBCs # K/uL Sodium (136-148) mmol/L Potassium (3.5-5.1) mmol/L Chloride (98-107) mmol/L Carbon Dioxide (21.0-32.0) mmol/L BUN (7.0-18.0) mg/dL Creatinine (0.8-1.3) mg/dL Est Cr Clr Drug Dosing mL/min Estimated GFR (MDRD) ml/min Glucose (74-106) mg/dL POC Glucose 285 H 351 H 383 H (70-99) mg/dL Calcium (8.5-10.1) mg/dL Phosphorus (2.6-4.7) mg/dL Magnesium (1.8-2.4) mg/dL Troponin I (0.000-0.056) ng/mL 04/20/21 04/20/21 04/20/21 Range/Units 06:12 06:12 06:12 WBC 24.03 H (4.0-11.0) K/uL RBC 4.30 L (4.50-5.90) M/uL Hgb 13.9 (13.0-17.0) g/dL Hct 43.3 (38.0-50.0) % MCV 100.7 H (80.0-98.0) fL MCH 32.3 H (27.0-32.0) pg MCHC 32.1 (31.0-37.0) g/dL RDW Std Deviation 50.9 (28.0-62.0) fl RDW Coeff of Sunny 14 (11.0-15.0) % Plt Count 162 (150-400) K/uL MPV 13.00 H (7.40-12.00) fL Neut % (Auto) 93.6 H (48.0-80.0) % Lymph % (Auto) 2.9 L (16.0-40.0) % [place] % (Auto) 3.4 (0.0-15.0) % Eos % (Auto) 0.0 (0.0-7.0) % Baso % (Auto) 0.1 (0.0-1.5) % Neut # (Auto) 22.5 H (1.4-5.7) K/uL Lymph # (Auto) 0.7 (0.6-2.4) K/uL [place] # (Auto) 0.8 (0.0-0.8) K/uL Eos # (Auto) 0.0 (0.0-0.7) K/uL Baso # (Auto) 0.0 (0.0-0.1) K/uL Nucleated RBC % 0.0 /100WBC Nucleated RBCs # 0 K/uL Sodium 140 (136-148) mmol/L Potassium 3.8 (3.5-5.1) mmol/L Chloride 99 (98-107) mmol/L Carbon Dioxide 43.5 H (21.0-32.0) mmol/L BUN 38 H (7.0-18.0) mg/dL Creatinine 0.9 (0.8-1.3) mg/dL Est Cr Clr Drug Dosing 80.34 mL/min Estimated GFR (MDRD) > 60.0 ml/min Glucose 184 H (74-106) mg/dL POC Glucose (70-99) mg/dL Calcium 8.1 L (8.5-10.1) mg/dL Phosphorus 3.6 (2.6-4.7) mg/dL Magnesium 2.7 H (1.8-2.4) mg/dL Troponin I 0.056 (0.000-0.056) ng/mL 04/20/21 Range/Units 06:39 WBC (4.0-11.0) K/uL RBC (4.50-5.90) M/uL Hgb (13.0-17.0) g/dL Hct (38.0-50.0) % MCV (80.0-98.0) fL MCH (27.0-32.0) pg MCHC (31.0-37.0) g/dL RDW Std Deviation (28.0-62.0) fl RDW Coeff of Sunny (11.0-15.0) % Plt Count (150-400) K/uL MPV (7.40-12.00) fL Neut % (Auto) (48.0-80.0) % Lymph % (Auto) (16.0-40.0) % [place] % (Auto) (0.0-15.0) % Eos % (Auto) (0.0-7.0) % Baso % (Auto) (0.0-1.5) % Neut # (Auto) (1.4-5.7) K/uL Lymph # (Auto) (0.6-2.4) K/uL [place] # (Auto) (0.0-0.8) K/uL Eos # (Auto) (0.0-0.7) K/uL Baso # (Auto) (0.0-0.1) K/uL Nucleated RBC % /100WBC Nucleated RBCs # K/uL Sodium (136-148) mmol/L Potassium (3.5-5.1) mmol/L Chloride (98-107) mmol/L Carbon Dioxide (21.0-32.0) mmol/L BUN (7.0-18.0) mg/dL Creatinine (0.8-1.3) mg/dL Est Cr Clr Drug Dosing mL/min Estimated GFR (MDRD) ml/min Glucose (74-106) mg/dL POC Glucose 164 H (70-99) mg/dL Calcium (8.5-10.1) mg/dL Phosphorus (2.6-4.7) mg/dL Magnesium (1.8-2.4) mg/dL Troponin I (0.000-0.056) ng/mL Result Diagrams: 04/20/21 06:12 04/20/21 06:12 Sepsis Event Note - Evaluation Sepsis Screening Result: No Definite Risk - Focused Exam Vital Signs: Vital Signs Temp Pulse Resp BP Pulse Ox 04/20/21 07:38 37 C 61 18 112/63 93 L 04/20/21 03:05 36.7 C 61 20 124/66 92 L - Problem List & Annotations (1) Anasarca SNOMED Code(s): 449357561, 474025310 Code(s): R60.1 - GENERALIZED EDEMA Status: Acute Current Visit: Yes (2) Cellulitis SNOMED Code(s): 058696499 Code(s): L03.90 - CELLULITIS, UNSPECIFIED Status: Acute Current Visit: Yes Qualifiers: Site of cellulitis: extremity Site of cellulitis of extremity: upper extremity Laterality: left Qualified Code(s): L03.114 - Cellulitis of left upper limb (3) Hypoalbuminemia SNOMED Code(s): 221518770 Code(s): E88.09 - OTH DISORDERS OF PLASMA-PROTEIN METABOLISM, NEC Status: Acute Current Visit: Yes (4) Emphysema of lung SNOMED Code(s): 26987369 Code(s): J43.9 - EMPHYSEMA, UNSPECIFIED Status: Acute Current Visit: No (5) Ambulatory dysfunction SNOMED Code(s): 788486174 Code(s): R26.2 - DIFFICULTY IN WALKING, NOT ELSEWHERE CLASSIFIED Status: Chronic Current Visit: No (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) SNOMED Code(s): 895942598 Code(s): J84.89 - OTHER SPECIFIED INTERSTITIAL PULMONARY DISEASES Status: Chronic Current Visit: No (7) Chronic respiratory failure with hypoxia SNOMED Code(s): 167108684 Code(s): J96.11 - CHRONIC RESPIRATORY FAILURE WITH HYPOXIA Status: Chronic Current Visit: No (8) History of DVT (deep vein thrombosis) SNOMED Code(s): 128612629 Code(s): Z86.718 - PERSONAL HISTORY OF OTHER VENOUS THROMBOSIS AND EMBOLISM Status: Chronic Current Visit: No (9) Hypothyroidism SNOMED Code(s): 43713609 Code(s): E03.9 - HYPOTHYROIDISM, UNSPECIFIED Status: Chronic Current Visit: No (10) Pulmonary fibrosis SNOMED Code(s): 35192297 Code(s): J84.10 - PULMONARY FIBROSIS, UNSPECIFIED Status: Chronic Current Visit: No (11) CVA (cerebral vascular accident) SNOMED Code(s): 332438892 Code(s): I63.9 - CEREBRAL INFARCTION, UNSPECIFIED Status: Ruled-out Current Visit: No - Problem List Review Problem List Initiated/Reviewed/Updated: Yes - My Orders Last 24 Hours: My Active Orders 04/19/21 14:00 methylPREDNISolone Sod Succ [Solu-MEDROL] 40 mg IVPUSH Q8H 04/20/21 14:00 Warfarin [Coumadin] 2.5 mg PO DAILY@1400 - Plan Plan:: 80 y/o M admitted for left arm cellulitis who then developed acute on chronic hypoxic respiratory failure. 1. Acute on chronic hypoxic hypercapnic respiratory failure secondary to pulmonary edema, pulmonary fibrosis and possible CAP -Continue currently on 30 L high flow -Continue Lasix to 40 mg IV TID, -Continue steroids, increased back to q8h, WBC slowly creeping up,likely steroid induced, repeat CXR showed no concern on PNA, no other sepsis concern for now, will hold off on resuming any antibiotics as patient just recently finished 2 week course of broad spectrum antibiotics, unless new concern of infection arises -DuoNebs as needed -Repeat chest x-ray shows diffuse bilateral coarse interstitial infiltrates persist but have slightly improved no lobar consolidations or significant effusions no pneumothorax. 3. Hyperglycemia due to steroid therapy -SSI high -Continue 5 units NovoLog to sliding scale at each meal -Continue diabetic diet - Lantus 20 units daily -steadily improving 4. Hypothyroidism -Continue levothyroxine 5. History DVT on Coumadin -INR 1.46 today -Appreciate pharmacy's assistance in dosing. 6. Stage I decubitus ulcer to buttocks -Wound care consulted -Reposition every 2 hours, has been declining frequent reposition -PT to consult to help with activity level and reconditioning. 7. Afib - Monitor on telemetry, no further events. - Paroxysmal afib noted 04/15, rate controlled, BP controlled. No distress. -Remains on chronic anticoagulation. VTE prophylaxis: Warfarin GI prophylaxis: Protonix CODE STATUS CPR only, declines intubation if needed. Dispo: Patient is back on high flow oxygen, not stable for dc to [facility], Discussed with patient that goals of care discussion needs to be had as we are concerned that his respiratory status will again worsen in his quality of life may be impaired by potentially futile treatment for progressively worsening pulmonary fibrosis. I spoke with daughter Bethany and rest of the children on the phone. I explained to them patient's worsening respiratory status after prolonged treatment for the past 2 weeks. Patient did have improvement few days back but now is back on high flow oxygen, I thoroughly explained patient's poor prognosis to the family and they are aware that patient will benefit from palliative/hospice care but at this point patient himself is not interested in those options as he wants to keep having aggressive care despite knowing the poor prognosis. Patient feels that " everybody is giving up on him", I explained to the patient that as his care team we are trying to present various options of goals of care so that his quality of life is not worsened. Family states that although they understand this poor prognosis but given that patient himself is not ready to transition to comfort care they will "standby his decision" as of now. Family wants to consider long-term acute care facility for transfer instead of [facility], I informed them patient is probably too acutely sick to be transferred to a long-term care facility but family requests social service liaison help to further look into that option. I spoke to the patient regarding this and he states he is interested in exploring this option. I informed the family that given that its weekend I have no social services designee available so this conversation will be carried forward on Wednesday. Patient's family was made aware of the rapidly worsening respiratory status in past 24 hours and then the possibility of possible transition to BiPAP if the respiratory status keeps worsening which would further impede his ability to eat and drink properly. Family is aware and understands the situation and will further carry-on the goals of care and disposition conversation on Wednesday. In the meantime I will continue aggressive care as necessary for the patient. .
[2021-04-20] MEDS ORDERED: Warfarin 2.5 MG Tab PO SCH (14:00)
[2021-04-20] MEDS: atorvaSTATin 40 MG Tab PO SCH (21:10)
[2021-04-21] MEDS: Pantoprazole 40 MG Tab.CR PO SCH (06:30)
[2021-04-21] MEDS: Furosemide 40 MG/4 ML VIAL IVPUSH SCH ×3 (06:30→22:06)
[2021-04-21] MEDS: Levothyroxine 150 MCG Tab PO SCH (06:30)
[2021-04-21] MEDS: methylPREDNISolone Sodium Succinate 40 MG/1 ML SDV IVPUSH SCH ×3 (06:30→22:06)
[2021-04-21] MEDS: Nystatin Topical Powder 15 GM Bottle TOP SCH ×3 (06:31→22:07)
[2021-04-21 07:23] LABS: BLOOD UREA NITROGEN,BUN 37 mg/dL (7.0-18.0); CARBON DIOXIDE,CO2 42.9 mmol/L (21.0-32.0); CHLORIDE,CL 98 mmol/L (98-107); GLUCOSE RANDOM 182 mg/dL (74-106); POTASSIUM,K 3.7 mmol/L (3.5-5.1); SODIUM,NA 139 mmol/L (136-148)
[2021-04-21] MEDS: Insulin Aspart 100 Units/ML 3 ML Pen SUBCUT SCH ×6 (07:58→17:55)
[2021-04-21] MEDS: Insulin Glargine,Human Rec. Analog 100 Units/ML 3 ML Pen SUBCUT SCH (08:00)
[2021-04-21] MEDS: Aspirin 81 MG Tab.Chew PO SCH (08:01)
[2021-04-21] MEDS: Budesonide 0.5 MG/2 ML Neb Susp INH SCH ×2 (09:00→22:06)
--- NOTE | 2021-04-21 13:26 | PCM.PN ---
- General Info Date of Service: 04/21/21 Admission Dx/Problem (Free Text): Admission Diagnosis/Problem Admission Diagnosis/Problem Cellulitis Subjective Update: Patient was resting in bed, in no acute distress, remains on heated high flow NC, couldn't participate in PT yesterday. Otherwise denies any new concerns this morning, was resting in bed comfortably, all questions and concerns were addressed at bedside. Functional Status: Reports: Tolerating Diet. Denies: Ambulating - Review of Systems General: Reports: No Symptoms HEENT: Reports: No Symptoms Pulmonary: Reports: No Symptoms Cardiovascular: Reports: No Symptoms Gastrointestinal: Reports: No Symptoms Genitourinary: Reports: No Symptoms Musculoskeletal: Reports: No Symptoms Skin: Reports: Other (hematoma on left hand improved) Neurological: Reports: No Symptoms Psychiatric: Reports: No Symptoms - Patient Data Vitals - Most Recent: Last Vital Signs Temp 97.2 F 04/21/21 12:00 Pulse 74 04/21/21 12:00 Resp 22 H 04/21/21 12:00 BP 132/65 04/21/21 12:00 Pulse Ox 95 04/21/21 12:00 Weight - Most Recent: 252 lb 1.6 oz I&O - Last 24 Hours: Intake & Output 04/20/21 04/21/21 04/21/21 22:59 06:59 14:59 Intake Total 920 465 240 Output Total 1075 650 Balance -155 -185 240 Lab Results Last 24 Hours: Laboratory Results - last 24 hr 04/20/21 04/21/21 04/21/21 Range/Units 17:06 06:18 06:18 WBC 24.01 H (4.0-11.0) K/uL RBC 4.40 L (4.50-5.90) M/uL Hgb 14.6 (13.0-17.0) g/dL Hct 43.8 (38.0-50.0) % MCV 99.5 H (80.0-98.0) fL MCH 33.2 H (27.0-32.0) pg MCHC 33.3 (31.0-37.0) g/dL RDW Std Deviation 50.1 (28.0-62.0) fl RDW Coeff of Sunny 14 (11.0-15.0) % Plt Count 159 (150-400) K/uL MPV 13.20 H (7.40-12.00) fL Add Manual Diff YES Neutrophils % (Manual) 89 H (48.0-80.0) % Band Neutrophils % 1 % Lymphocytes % (Manual) 3 L (16.0-40.0) % Monocytes % (Manual) 5 (0.0-15.0) % Metamyelocytes % 1 % Myelocytes % 1 % Nucleated RBC % 0.0 /100WBC Absolute Seg Neuts 21.4 H (1.4-5.7) Band Neutrophils # 0.2 Lymphocytes # (Manual) 0.7 (0.6-2.4) Monocytes # (Manual) 1.2 H (0.0-0.8) Absolute Metamyelocyte 0.2 Absolute Myelocytes 0.2 Nucleated RBCs # 0 K/uL INR Sodium 139 (136-148) mmol/L Potassium 3.7 (3.5-5.1) mmol/L Chloride 98 (98-107) mmol/L Carbon Dioxide 42.9 H (21.0-32.0) mmol/L BUN 37 H (7.0-18.0) mg/dL Creatinine 0.8 (0.8-1.3) mg/dL Est Cr Clr Drug Dosing 90.38 mL/min Estimated GFR (MDRD) > 60.0 ml/min Glucose 182 H (74-106) mg/dL POC Glucose 275 H (70-99) mg/dL Calcium 8.2 L (8.5-10.1) mg/dL Phosphorus 4.0 (2.6-4.7) mg/dL Magnesium 2.8 H (1.8-2.4) mg/dL 04/21/21 04/21/21 04/21/21 Range/Units 06:18 06:27 11:55 WBC (4.0-11.0) K/uL RBC (4.50-5.90) M/uL Hgb (13.0-17.0) g/dL Hct (38.0-50.0) % MCV (80.0-98.0) fL MCH (27.0-32.0) pg MCHC (31.0-37.0) g/dL RDW Std Deviation (28.0-62.0) fl RDW Coeff of Sunny (11.0-15.0) % Plt Count (150-400) K/uL MPV (7.40-12.00) fL Add Manual Diff Neutrophils % (Manual) (48.0-80.0) % Band Neutrophils % % Lymphocytes % (Manual) (16.0-40.0) % Monocytes % (Manual) (0.0-15.0) % Metamyelocytes % % Myelocytes % % Nucleated RBC % /100WBC Absolute Seg Neuts (1.4-5.7) Band Neutrophils # Lymphocytes # (Manual) (0.6-2.4) Monocytes # (Manual) (0.0-0.8) Absolute Metamyelocyte Absolute Myelocytes Nucleated RBCs # K/uL INR 2.53 Sodium (136-148) mmol/L Potassium (3.5-5.1) mmol/L Chloride (98-107) mmol/L Carbon Dioxide (21.0-32.0) mmol/L BUN (7.0-18.0) mg/dL Creatinine (0.8-1.3) mg/dL Est Cr Clr Drug Dosing mL/min Estimated GFR (MDRD) ml/min Glucose (74-106) mg/dL POC Glucose 170 H 256 H (70-99) mg/dL Calcium (8.5-10.1) mg/dL Phosphorus (2.6-4.7) mg/dL Magnesium (1.8-2.4) mg/dL Med Orders - Current: Current Medications Albuterol/Ipratropium (Albuterol/Ipratropium 3.0-0.5 Mg/3 Ml Neb Soln) 3 ml NEB Q4HRRT PRN PRN Reason: Shortness of Breath Last Admin: 04/05/21 12:07 Dose: 3 ml Documented by: Aspirin (Aspirin 81 Mg Tab.Chew) 81 mg PO DAILY [facility] Last Admin: 04/21/21 08:01 Dose: 81 mg Documented by: Atorvastatin Calcium (Atorvastatin 40 Mg Tab) 40 mg PO BEDTIME [facility] Last Admin: 04/20/21 21:10 Dose: 40 mg Documented by: Bisacodyl (Bisacodyl 10 Mg Supp) 10 mg RECTAL DAILY PRN PRN Reason: if no BM in 2 days Budesonide (Budesonide 0.5 Mg/2 Ml Neb Susp) 1 mg INH BID [facility] Last Admin: 04/21/21 09:00 Dose: 1 mg Documented by: Dextrose/Water (50% Dextrose In Water 50 Ml Syringe) 50 ml IVPUSH ASDIRECTED P RN PRN Reason: Hypoglycemia Docusate Sodium (Docusate Sodium 100 Mg Cap) 100 mg PO DAILY PRN PRN Reason: Constipation Furosemide (Furosemide 40 Mg/4 Ml Vial) 40 mg IVPUSH TID [facility] Last Admin: 04/21/21 06:30 Dose: 40 mg Documented by: Glucagon (Glucagon,Human Recombinant 1 Mg Vial) 1 mg IM ASDIRECTED PRN PRN Reason: Hypoglycemia Insulin Aspart (Insulin Aspart 100 Units/Ml 3 Ml Pen) 0 unit SUBCUT TIDAC [facility]; Protocol Last Admin: 04/21/21 12:45 Dose: 9 units Documented by: Insulin Aspart (Insulin Aspart 100 Units/Ml 3 Ml Pen) 5 unit SUBCUT TIDAC [facility] Last Admin: 04/21/21 12:45 Dose: 5 units Documented by: Insulin Glargine (Insulin Glargine,Human Rec. Analog 100 Units/Ml 3 Ml Pen) 20 units SUBCUT DAILY [facility] Last Admin: 04/21/21 08:00 Dose: 20 units Documented by: Levothyroxine Sodium (Levothyroxine 150 Mcg Tab) 150 mcg PO ACBREAKFAST [facility] Last Admin: 04/21/21 06:30 Dose: 150 mcg Documented by: Methylprednisolone Sodium Succinate (Methylprednisolone Sodium Succinate 40 Mg/1 Ml Sdv) 40 mg IVPUSH Q8H [facility] Last Admin: 04/21/21 06:30 Dose: 40 mg Documented by: Multi-Ingred Cream/Lotion/Oil/Oint (Zinc Oxide 13% Crm 56 Gm Tube) 0 gm TOP ASDIRECTED PRN PRN Reason: Skin protectant Last Admin: 04/15/21 10:57 Dose: 1 applic Documented by: Nystatin (Nystatin Topical Powder 15 Gm Bottle) 0 gm TOP TID [facility] Last Admin: 04/21/21 06:31 Dose: 1 applic Documented by: Pantoprazole Sodium (Pantoprazole 40 Mg Tab.Cr) 40 mg PO ACBREAKFAST [facility] Last Admin: 04/21/21 06:30 Dose: 40 mg Documented by: Polyethylene Glycol (Polyethylene Glycol 3350 Powder 17 Gm Packet) 17 gm PO DAILY PRN PRN Reason: if no BM in 2 days Sodium Chloride (Sodium Chloride 0.65% Nasal Al[place] 45 Ml Bottle) 0 ml CADE QID PRN PRN Reason: nasal congestion Warfarin Sodium (Warfarin Ask Dosing) 1 each PO Q24H [facility] Last Admin: 04/20/21 14:18 Dose: Not Given Documented by: Discontinued Medications Acetazolamide (Acetazolamide 250 Mg Tab) 500 mg PO ONETIME ONE Stop: 04/14/21 09:49 Last Admin: 04/14/21 10:40 Dose: 500 mg Documented by: Albuterol/Ipratropium (Albuterol/Ipratropium 3.0-0.5 Mg/3 Ml Neb Soln) 3 ml INH TID PRN PRN Reason: Shortness of Breath Aspirin (Aspirin 81 Mg Tab.Chew) 324 mg PO ONETIME ONE Stop: 04/04/21 16:13 Last Admin: 04/04/21 16:26 Dose: 324 mg Documented by: Azithromycin (Azithromycin 250 Mg Tab) 500 mg PO Q24H [facility] Last Admin: 04/16/21 14:02 Dose: 500 mg Documented by: Budesonide (Budesonide 0.5 Mg/2 Ml Neb Susp) 1 mg INH TID [facility] Last Admin: 04/16/21 14:04 Dose: 1 mg Documented by: Budesonide (Budesonide 0.5 Mg/2 Ml Neb Susp) Confirm Administered Dose 0.5 mg .ROUTE .STK-MED ONE Stop: 04/07/21 06:24 Last Admin: 04/07/21 15:59 Dose: Not Given Documented by: Dextrose/Water (50% Dextrose In Water 50 Ml Syringe) 50 ml IV ASDIRECTED PRN PRN Reason: Hypoglycemia Dextrose/Water (50% Dextrose In Water 50 Ml Syringe) 50 ml IV ASDIRECTED PRN PRN Reason: Hypoglycemia Dextrose/Water (50% Dextrose In Water 50 Ml Syringe) 50 ml IV ASDIRECTED PRN PRN Reason: Hypoglycemia Dextrose/Water (50% Dextrose In Water 50 Ml Syringe) 50 ml IVPUSH ASDIRECTED PRN PRN Reason: Hypoglycemia Docusate Sodium (Docusate Sodium 100 Mg Cap) 100 mg PO DAILY [facility] Last Admin: 04/11/21 09:05 Dose: Not Given Documented by: Enoxaparin Sodium (Enoxaparin 40 Mg/0.4 Ml Syringe) 40 mg SUBCUT Q12HR [facility] Last Admin: 04/07/21 08:32 Dose: 40 mg Documented by: Furosemide (Furosemide 20 Mg/2 Ml Vial) 20 mg IVPUSH ONETIME ONE Stop: 04/04/21 22:18 Last Admin: 04/04/21 23:02 Dose: 20 mg Documented by: Furosemide (Furosemide 40 Mg/4 Ml Vial) 20 mg IVPUSH NOW ONE Stop: 04/05/21 09:07 Last Admin: 04/05/21 09:39 Dose: 20 mg Documented by: Furosemide (Furosemide 40 Mg/4 Ml Vial) 20 mg IVPUSH ONETIME ONE Stop: 04/05/21 17:01 Last Admin: 04/05/21 16:48 Dose: Not Given Documented by: Furosemide (Furosemide 40 Mg/4 Ml Vial) 40 mg IVPUSH DAILY [facility] Last Admin: 04/07/21 08:27 Dose: 40 mg Documented by: Furosemide (Furosemide 20 Mg/2 Ml Vial) Confirm Administered Dose 20 mg .ROUTE .STK-MED ONE Stop: 04/05/21 21:47 Last Admin: 04/05/21 22:10 Dose: Not Given Documented by: Furosemide (Furosemide 40 Mg/4 Ml Vial) 20 mg IVPUSH NOW ONE Stop: 04/05/21 22:00 Last Admin: 04/05/21 22:09 Dose: 20 mg Documented by: Furosemide (Furosemide 40 Mg/4 Ml Vial) 40 mg IVPUSH BIDDIURETIC [facility] Last Admin: 04/08/21 08:15 Dose: 40 mg Documented by: Furosemide (Furosemide 40 Mg/4 Ml Vial) 40 mg IVPUSH NOW ONE Stop: 04/07/21 22:39 Last Admin: 04/07/21 22:45 Dose: 40 mg Documented by: Furosemide (Furosemide 40 Mg/4 Ml Vial) 40 mg IVPUSH TID [facility] Last Admin: 04/10/21 06:37 Dose: 40 mg Documented by: Furosemide (Furosemide 40 Mg/4 Ml Vial) 60 mg IVPUSH TID [facility] Last Admin: 04/11/21 06:18 Dose: 60 mg Documented by: Furosemide (Furosemide 100 Mg/10 Ml Sdv) 60 mg IVPUSH TID [facility] Last Admin: 04/16/21 05:51 Dose: 60 mg Documented by: Glucagon (Glucagon,Human Recombinant 1 Mg Vial) 1 mg IM ASDIRECTED PRN PRN Reason: Hypoglycemia Glucagon (Glucagon,Human Recombinant 1 Mg Vial) 1 mg IM ASDIRECTED PRN PRN Reason: Hypoglycemia Glucagon (Glucagon,Human Recombinant 1 Mg Vial) 1 mg IM ASDIRECTED PRN PRN Reason: Hypoglycemia Glucagon (Glucagon,Human Recombinant 1 Mg Vial) 1 mg IM ASDIRECTED PRN PRN Reason: Hypoglycemia Ceftriaxone Sodium/Dextrose 2 (gm/ Premix) 50 mls @ 100 mls/hr IV ONETIME ONE Stop: 04/04/21 17:58 Last Admin: 04/04/21 17:45 Dose: 100 mls/hr Documented by: Piperacillin Sod/Tazobactam (Sod 3.375 gm/ Sodium Chloride) 50 mls @ 100 mls/hr IV ONETIME ONE Stop: 04/04/21 21:32 Last Admin: 04/04/21 21:49 Dose: 100 mls/hr Documented by: Piperacillin Sod/Tazobactam (Sod 3.375 gm/ Sodium Chloride) 50 mls @ 100 mls/hr IV Q8H [facility] Last Admin: 04/18/21 06:32 Dose: 100 mls/hr Documented by: Vancomycin HCl 1.5 gm/ Premix 300 mls @ 200 mls/hr IV Q12H [facility] Last Admin: 04/06/21 23:14 Dose: Not Given Documented by: Vancomycin HCl 1.5 gm/ Premix 300 mls @ 200 mls/hr IV Q24H [facility] Last Admin: 04/15/21 10:56 Dose: 200 mls/hr Documented by: Dexmedetomidine/Sodium (Chloride 400 mcg/ Premix) 100 mls @ 6.084 mls/hr IV TITRATE [facility]; Protocol Insulin Aspart (Insulin Aspart 100 Units/Ml 3 Ml Pen) 7 unit SUBCUT ONETIME ONE Stop: 04/11/21 18:30 Last Admin: 04/11/21 18:40 Dose: 7 units Documented by: Insulin Aspart (Insulin Aspart 100 Units/Ml 3 Ml Pen) 5 unit SUBCUT ONETIME ONE Stop: 04/11/21 19:42 Last Admin: 04/11/21 19:50 Dose: 5 units Documented by: Insulin Aspart (Insulin Aspart 100 Units/Ml 10 Ml Vial) 10 unit SUBCUT ONETIME ONE Stop: 04/11/21 22:41 Last Admin: 04/11/21 22:53 Dose: 10 units Documented by: Insulin Aspart (Insulin Aspart 100 Units/Ml 10 Ml Vial) 10 unit SUBCUT ONETIME ONE Stop: 04/12/21 02:11 Last Admin: 04/12/21 02:16 Dose: 10 units Documented by: Iopamidol (Iopamidol 755 Mg/Ml 500 Ml Multipack Bottle) 100 ml IVPUSH ONETIME ONE Stop: 04/04/21 18:43 Last Admin: 04/04/21 18:44 Dose: 100 ml Documented by: Lorazepam (Lorazepam 2 Mg/Ml Sdv) 0.5 mg IVPUSH ONETIME PRN PRN Reason: Bipap Methylprednisolone Sodium Succinate (Methylprednisolone Sodium Succinate 40 Mg/1 Ml Sdv) 60 mg IVPUSH Q8H [facility] Last Admin: 04/15/21 06:48 Dose: 60 mg Documented by: Methylprednisolone Sodium Succinate (Methylprednisolone Sodium Succinate 40 Mg/1 Ml Sdv) 40 mg IVPUSH Q8H [facility] Last Admin: 04/17/21 05:59 Dose: 40 mg Documented by: Methylprednisolone Sodium Succinate (Methylprednisolone Sodium Succinate 40 Mg/1 Ml Sdv) 40 mg IVPUSH Q12H [facility] Last Admin: 04/19/21 06:20 Dose: 40 mg Documented by: Polyethylene Glycol (Polyethylene Glycol 3350 Powder 17 Gm Packet) 17 gm PO DAILY [facility] Last Admin: 04/17/21 09:22 Dose: 17 gm Documented by: Potassium Chloride (Potassium Chloride 20 Meq Tab.Er) 40 meq PO ONETIME ONE Stop: 04/06/21 12:31 Last Admin: 04/06/21 12:58 Dose: 40 meq Documented by: Potassium Chloride (Potassium Chloride 20 Meq Tab.Er) 40 meq PO ONETIME ONE Stop: 04/08/21 07:50 Last Admin: 04/08/21 08:15 Dose: 40 meq Documented by: Potassium Chloride (Potassium Chloride 20 Meq Tab.Er) 40 meq PO ONETIME ONE Stop: 04/08/21 12:01 Last Admin: 04/08/21 12:24 Dose: 40 meq Documented by: Potassium Chloride (Potassium Chloride 20 Meq Tab.Er) 40 meq PO TID [facility] Last Admin: 04/18/21 06:35 Dose: 40 meq Documented by: Prednisone (Prednisone 10 Mg Tab) 10 mg PO BEDTIME [facility] Last Admin: 04/07/21 22:28 Dose: 10 mg Documented by: Prednisone (Prednisone 20 Mg Tab) 20 mg PO DAILY [facility] Last Admin: 04/07/21 08:31 Dose: 20 mg Documented by: Tamsulosin HCl (Tamsulosin 0.4 Mg Cap.Er) 0.4 mg PO ONETIME ONE Stop: 04/05/21 19:16 Last Admin: 04/05/21 19:53 Dose: 0.4 mg Documented by: Vancomycin HCl (Pharmacy To Dose - Vancomycin) 1 dose .XX ASDIRECTED [facility] Warfarin Sodium (Warfarin 2 Mg Tab) 4 mg PO ONETIME ONE Stop: 04/05/21 14:01 Last Admin: 04/05/21 14:05 Dose: 4 mg Documented by: Warfarin Sodium (Warfarin 1 Mg Tab) 3 mg PO ONETIME ONE Stop: 04/06/21 14:01 Last Admin: 04/06/21 13:35 Dose: 3 mg Documented by: Warfarin Sodium (Warfarin 2 Mg Tab) 2 mg PO 04/07/21@[address] [place] [address] Stop: 04/07/21 15:00 Last Admin: 04/07/21 14:21 Dose: 2 mg Documented by: Warfarin Sodium (Warfarin 1 Mg Tab) 1 mg PO 04/08/21@[address] [place] [address] Stop: 04/08/21 16:00 Last Admin: 04/08/21 13:44 Dose: 1 mg Documented by: Warfarin Sodium (Warfarin 2.5 Mg Tab) 2.5 mg PO DAILY@1400 [facility] Stop: 04/12/21 15:00 Last Admin: 04/12/21 15:04 Dose: 2.5 mg Documented by: Warfarin Sodium (Warfarin 1 Mg Tab) 3 mg PO DAILY@1400 [facility] Stop: 04/13/21 15:00 Last Admin: 04/13/21 13:00 Dose: 3 mg Documented by: Warfarin Sodium (Warfarin 2.5 Mg Tab) 2.5 mg PO DAILY@[address] [place] [address] Stop: 04/14/21 15:00 Last Admin: 04/14/21 13:59 Dose: 2.5 mg Documented by: Warfarin Sodium (Warfarin 2.5 Mg Tab) 2.5 mg PO DAILY@[address] [place] [address] Stop: 04/15/21 15:00 Last Admin: 04/15/21 13:49 Dose: 2.5 mg Documented by: Warfarin Sodium (Warfarin 2.5 Mg Tab) 2.5 mg PO 04/17/21@1400 [facility] Stop: 04/17/21 16:00 Last Admin: 04/17/21 14:15 Dose: 2.5 mg Documented by: Warfarin Sodium (Warfarin 2 Mg Tab) 4 mg PO ONETIME ONE Stop: 04/18/21 14:31 Last Admin: 04/18/21 15:29 Dose: 4 mg Documented by: Warfarin Sodium (Warfarin 2 Mg Tab) 4 mg PO ONETIME ONE Stop: 04/19/21 14:16 Last Admin: 04/19/21 14:36 Dose: 4 mg Documented by: Warfarin Sodium (Warfarin 2.5 Mg Tab) 2.5 mg PO DAILY@1400 [facility] Stop: 04/20/21 15:00 Last Admin: 04/20/21 14:18 Dose: 2.5 mg Documented by: - Exam Quality Assessment: Supplemental Oxygen, DVT Prophylaxis (On warfarin) General: Alert, Oriented, Cooperative, No Acute Distress HEENT: Pupils Equal, Pupils Reactive, EOMI, Mucous Membr. Moist/Tees Toh Neck: Supple Lungs: Clear to Auscultation (Bilaterally upper and middle lobes), Crackles (Lower lobes bilaterally) Cardiovascular: Regular Rate, Regular Rhythm GI/Abdominal Exam: Normal Bowel Sounds, Soft, Non-Tender Back Exam: Normal Inspection Extremities: Normal Capillary Refill, Pedal Edema (Improved) Peripheral Pulses: 2+: Carotid (L), Carotid (R), Dorsalis Pedis (L), Dorsalis Pedis (R) Skin: Warm, Dry, Intact, Ecchymosis (Left hand improved) Wound/Incisions: Healing Well (Hematoma on left hand improved) Neurological: No New Focal Deficit Psy/Mental Status: Alert, Normal Affect, Normal Mood - Patient Data Lab Results Last 24 hrs: Laboratory Results - last 24 hr 04/20/21 04/21/21 04/21/21 Range/Units 17:06 06:18 06:18 WBC 24.01 H (4.0-11.0) K/uL RBC 4.40 L (4.50-5.90) M/uL Hgb 14.6 (13.0-17.0) g/dL Hct 43.8 (38.0-50.0) % MCV 99.5 H (80.0-98.0) fL MCH 33.2 H (27.0-32.0) pg MCHC 33.3 (31.0-37.0) g/dL RDW Std Deviation 50.1 (28.0-62.0) fl RDW Coeff of Sunny 14 (11.0-15.0) % Plt Count 159 (150-400) K/uL MPV 13.20 H (7.40-12.00) fL Add Manual Diff YES Neutrophils % (Manual) 89 H (48.0-80.0) % Band Neutrophils % 1 % Lymphocytes % (Manual) 3 L (16.0-40.0) % Monocytes % (Manual) 5 (0.0-15.0) % Metamyelocytes % 1 % Myelocytes % 1 % Nucleated RBC % 0.0 /100WBC Absolute Seg Neuts 21.4 H (1.4-5.7) Band Neutrophils # 0.2 Lymphocytes # (Manual) 0.7 (0.6-2.4) Monocytes # (Manual) 1.2 H (0.0-0.8) Absolute Metamyelocyte 0.2 Absolute Myelocytes 0.2 Nucleated RBCs # 0 K/uL INR Sodium 139 (136-148) mmol/L Potassium 3.7 (3.5-5.1) mmol/L Chloride 98 (98-107) mmol/L Carbon Dioxide 42.9 H (21.0-32.0) mmol/L BUN 37 H (7.0-18.0) mg/dL Creatinine 0.8 (0.8-1.3) mg/dL Est Cr Clr Drug Dosing 90.38 mL/min Estimated GFR (MDRD) > 60.0 ml/min Glucose 182 H (74-106) mg/dL POC Glucose 275 H (70-99) mg/dL Calcium 8.2 L (8.5-10.1) mg/dL Phosphorus 4.0 (2.6-4.7) mg/dL Magnesium 2.8 H (1.8-2.4) mg/dL 04/21/21 04/21/21 04/21/21 Range/Units 06:18 06:27 11:55 WBC (4.0-11.0) K/uL RBC (4.50-5.90) M/uL Hgb (13.0-17.0) g/dL Hct (38.0-50.0) % MCV (80.0-98.0) fL MCH (27.0-32.0) pg MCHC (31.0-37.0) g/dL RDW Std Deviation (28.0-62.0) fl RDW Coeff of Sunny (11.0-15.0) % Plt Count (150-400) K/uL MPV (7.40-12.00) fL Add Manual Diff Neutrophils % (Manual) (48.0-80.0) % Band Neutrophils % % Lymphocytes % (Manual) (16.0-40.0) % Monocytes % (Manual) (0.0-15.0) % Metamyelocytes % % Myelocytes % % Nucleated RBC % /100WBC Absolute Seg Neuts (1.4-5.7) Band Neutrophils # Lymphocytes # (Manual) (0.6-2.4) Monocytes # (Manual) (0.0-0.8) Absolute Metamyelocyte Absolute Myelocytes Nucleated RBCs # K/uL INR 2.53 Sodium (136-148) mmol/L Potassium (3.5-5.1) mmol/L Chloride (98-107) mmol/L Carbon Dioxide (21.0-32.0) mmol/L BUN (7.0-18.0) mg/dL Creatinine (0.8-1.3) mg/dL Est Cr Clr Drug Dosing mL/min Estimated GFR (MDRD) ml/min Glucose (74-106) mg/dL POC Glucose 170 H 256 H (70-99) mg/dL Calcium (8.5-10.1) mg/dL Phosphorus (2.6-4.7) mg/dL Magnesium (1.8-2.4) mg/dL Result Diagrams: 04/21/21 06:18 04/21/21 06:18 Sepsis Event Note - Evaluation Sepsis Screening Result: No Definite Risk - Focused Exam Vital Signs: Vital Signs Temp Pulse Resp BP Pulse Ox 04/21/21 12:00 97.2 F 74 22 H 132/65 95 04/21/21 08:00 96.1 F L 68 20 157/73 H 97 04/21/21 02:44 97.2 F 68 18 136/73 94 L - Problem List Review Problem List Initiated/Reviewed/Updated: Yes - Plan Plan:: 80 y/o M admitted for left arm cellulitis who then developed acute on chronic hypoxic respiratory failure. 1. Acute on chronic hypoxic hypercapnic respiratory failure secondary to pulmonary edema, pulmonary fibrosis and possible CAP -Continue currently on 30 L high flow -Continue Lasix to 40 mg IV TID, -Continue steroids, increased back to q8h, WBC slowly creeping up,likely steroid induced, repeat CXR showed no concern on PNA, no other sepsis concern for now, will hold off on resuming any antibiotics as patient just recently finished 2 week course of broad spectrum antibiotics, unless new concern of infection arises -DuoNebs as needed -Repeat chest x-ray shows diffuse bilateral coarse interstitial infiltrates persist but have slightly improved no lobar consolidations or significant effusions no pneumothorax. 3. Hyperglycemia due to steroid therapy -SSI high -Continue 5 units NovoLog to sliding scale at each meal -Continue diabetic diet - Lantus 20 units daily -steadily improving 4. Hypothyroidism -Continue levothyroxine 5. History DVT on Coumadin -INR 1.46 today -Appreciate pharmacy's assistance in dosing. 6. Stage I decubitus ulcer to buttocks -Wound care consulted -Reposition every 2 hours, has been declining frequent reposition -PT to consult to help with activity level and reconditioning. 7. Afib - Monitor on telemetry, no further events. - Paroxysmal afib noted 04/15, rate controlled, BP controlled. No distress. -Remains on chronic anticoagulation. VTE prophylaxis: Warfarin GI prophylaxis: Protonix CODE STATUS CPR only, declines intubation if needed.
[2021-04-21] MEDS ORDERED: Warfarin 2.5 MG Tab PO ONE (14:15)
[2021-04-21] MEDS: atorvaSTATin 40 MG Tab PO SCH (22:06)
[2021-04-22 07:00] LABS: BLOOD UREA NITROGEN,BUN 40 mg/dL (7.0-18.0); CARBON DIOXIDE,CO2 42.3 mmol/L (21.0-32.0); CHLORIDE,CL 98 mmol/L (98-107); GLUCOSE RANDOM 229 mg/dL (74-106); POTASSIUM,K 3.3 mmol/L (3.5-5.1); SODIUM,NA 140 mmol/L (136-148)
[2021-04-22] MEDS: Levothyroxine 150 MCG Tab PO SCH (07:20)
[2021-04-22] MEDS: methylPREDNISolone Sodium Succinate 40 MG/1 ML SDV IVPUSH SCH ×3 (07:20→21:47)
[2021-04-22] MEDS: Furosemide 40 MG/4 ML VIAL IVPUSH SCH ×3 (07:20→21:49)
[2021-04-22] MEDS: Nystatin Topical Powder 15 GM Bottle TOP SCH ×3 (07:20→21:52)
[2021-04-22] MEDS: Pantoprazole 40 MG Tab.CR PO SCH (07:20)
[2021-04-22] MEDS: Insulin Aspart 100 Units/ML 3 ML Pen SUBCUT SCH ×6 (07:27→18:08)
[2021-04-22] MEDS: Budesonide 0.5 MG/2 ML Neb Susp INH SCH ×2 (09:03→21:21)
[2021-04-22] MEDS ORDERED: Potassium Chloride 20 MEQ Tab.ER PO ONE (09:14)
[2021-04-22] MEDS: Aspirin 81 MG Tab.Chew PO SCH (09:29)
[2021-04-22] MEDS: Insulin Glargine,Human Rec. Analog 100 Units/ML 3 ML Pen SUBCUT SCH (09:29)
--- NOTE | 2021-04-22 15:47 | PCM.PN ---
- General Info Date of Service: 04/22/21 Admission Dx/Problem (Free Text): Admission Diagnosis/Problem Admission Diagnosis/Problem Cellulitis and significant history of pulmonary fibrosis Subjective Update: Patient was resting in bed, in no acute distress, remains on heated high flow NC. Otherwise denies any new concerns this morning, was resting in bed comfortably, all questions and concerns were addressed at bedside. Functional Status: Reports: Tolerating Diet - Review of Systems General: Reports: No Symptoms HEENT: Reports: No Symptoms Pulmonary: Reports: No Symptoms Cardiovascular: Reports: No Symptoms Gastrointestinal: Reports: No Symptoms Genitourinary: Reports: No Symptoms Musculoskeletal: Reports: No Symptoms Skin: Reports: No Symptoms Neurological: Reports: No Symptoms Psychiatric: Reports: No Symptoms - Patient Data Vitals - Most Recent: Last Vital Signs Temp 96.4 F L 04/22/21 11:49 Pulse 80 04/22/21 11:49 Resp 22 H 04/22/21 11:49 BP 113/58 L 04/22/21 11:49 Pulse Ox 90 L 04/22/21 11:49 Weight - Most Recent: 238 lb I&O - Last 24 Hours: Intake & Output 04/22/21 04/22/21 04/22/21 06:59 14:59 22:59 Intake Total 550 Output Total 1100 Balance -550 Lab Results Last 24 Hours: Laboratory Results - last 24 hr 04/21/21 04/22/21 04/22/21 Range/Units 17:45 05:20 05:20 WBC 24.05 H (4.0-11.0) K/uL RBC 4.39 L (4.50-5.90) M/uL Hgb 14.1 (13.0-17.0) g/dL Hct 43.4 (38.0-50.0) % MCV 98.9 H (80.0-98.0) fL MCH 32.1 H (27.0-32.0) pg MCHC 32.5 (31.0-37.0) g/dL RDW Std Deviation 49.5 (28.0-62.0) fl RDW Coeff of Sunny 14 (11.0-15.0) % Plt Count 154 (150-400) K/uL MPV 13.40 H (7.40-12.00) fL Add Manual Diff YES Neutrophils % (Manual) 91 H (48.0-80.0) % Band Neutrophils % 3 % Lymphocytes % (Manual) 4 L (16.0-40.0) % Monocytes % (Manual) 2 (0.0-15.0) % Nucleated RBC % 0.1 /100WBC Absolute Seg Neuts 21.9 H (1.4-5.7) Band Neutrophils # 0.7 Lymphocytes # (Manual) 1.0 (0.6-2.4) Monocytes # (Manual) 0.5 (0.0-0.8) Nucleated RBCs # 0 K/uL INR 3.24 Sodium (136-148) mmol/L Potassium (3.5-5.1) mmol/L Chloride (98-107) mmol/L Carbon Dioxide (21.0-32.0) mmol/L BUN (7.0-18.0) mg/dL Creatinine (0.8-1.3) mg/dL Est Cr Clr Drug Dosing mL/min Estimated GFR (MDRD) ml/min Glucose (74-106) mg/dL POC Glucose 240 H (70-99) mg/dL Calcium (8.5-10.1) mg/dL Phosphorus (2.6-4.7) mg/dL Magnesium (1.8-2.4) mg/dL Total Bilirubin (0.2-1.0) mg/dL AST (15-37) IU/L ALT (14-63) IU/L Alkaline Phosphatase (46-116) U/L Total Protein (6.4-8.2) g/dL Albumin (3.4-5.0) g/dL Globulin (2.6-4.0) g/dL Albumin/Globulin Ratio (0.9-1.6) 04/22/21 04/22/21 Range/Units 05:20 05:20 WBC (4.0-11.0) K/uL RBC (4.50-5.90) M/uL Hgb (13.0-17.0) g/dL Hct (38.0-50.0) % MCV (80.0-98.0) fL MCH (27.0-32.0) pg MCHC (31.0-37.0) g/dL RDW Std Deviation (28.0-62.0) fl RDW Coeff of Sunny (11.0-15.0) % Plt Count (150-400) K/uL MPV (7.40-12.00) fL Add Manual Diff Neutrophils % (Manual) (48.0-80.0) % Band Neutrophils % % Lymphocytes % (Manual) (16.0-40.0) % Monocytes % (Manual) (0.0-15.0) % Nucleated RBC % /100WBC Absolute Seg Neuts (1.4-5.7) Band Neutrophils # Lymphocytes # (Manual) (0.6-2.4) Monocytes # (Manual) (0.0-0.8) Nucleated RBCs # K/uL INR Sodium 140 (136-148) mmol/L Potassium 3.3 L (3.5-5.1) mmol/L Chloride 98 (98-107) mmol/L Carbon Dioxide 42.3 H (21.0-32.0) mmol/L BUN 40 H (7.0-18.0) mg/dL Creatinine 0.9 (0.8-1.3) mg/dL Est Cr Clr Drug Dosing 80.34 mL/min Estimated GFR (MDRD) > 60.0 ml/min Glucose 229 H (74-106) mg/dL POC Glucose (70-99) mg/dL Calcium 8.3 L (8.5-10.1) mg/dL Phosphorus 3.5 (2.6-4.7) mg/dL Magnesium 2.7 H (1.8-2.4) mg/dL Total Bilirubin 1.2 H (0.2-1.0) mg/dL AST 37 (15-37) IU/L ALT 98 H (14-63) IU/L Alkaline Phosphatase 100 (46-116) U/L Total Protein 4.8 L (6.4-8.2) g/dL Albumin 2.2 L (3.4-5.0) g/dL Globulin 2.6 (2.6-4.0) g/dL Albumin/Globulin Ratio 0.9 (0.9-1.6) Med Orders - Current: Current Medications Albuterol/Ipratropium (Albuterol/Ipratropium 3.0-0.5 Mg/3 Ml Neb Soln) 3 ml NEB Q4HRRT PRN PRN Reason: Shortness of Breath Last Admin: 04/05/21 12:07 Dose: 3 ml Documented by: Aspirin (Aspirin 81 Mg Tab.Chew) 81 mg PO DAILY [facility] Last Admin: 04/22/21 09:29 Dose: 81 mg Documented by: Atorvastatin Calcium (Atorvastatin 40 Mg Tab) 40 mg PO BEDTIME [facility] Last Admin: 04/21/21 22:06 Dose: 40 mg Documented by: Bisacodyl (Bisacodyl 10 Mg Supp) 10 mg RECTAL DAILY PRN PRN Reason: if no BM in 2 days Budesonide (Budesonide 0.5 Mg/2 Ml Neb Susp) 1 mg INH BID [facility] Last Admin: 04/22/21 09:03 Dose: 1 mg Documented by: Dextrose/Water (50% Dextrose In Water 50 Ml Syringe) 50 ml IVPUSH ASDIRECTED PRN PRN Reason: Hypoglycemia Docusate Sodium (Docusate Sodium 100 Mg Cap) 100 mg PO DAILY PRN PRN Reason: Constipation Furosemide (Furosemide 40 Mg/4 Ml Vial) 40 mg IVPUSH TID [facility] Last Admin: 04/22/21 13:27 Dose: 40 mg Documented by: Glucagon (Glucagon,Human Recombinant 1 Mg Vial) 1 mg IM ASDIRECTED PRN PRN Reason: Hypoglycemia Insulin Aspart (Insulin Aspart 100 Units/Ml 3 Ml Pen) 0 unit SUBCUT TIDAC [facility]; Protocol Last Admin: 04/22/21 13:26 Dose: 12 units Documented by: Insulin Aspart (Insulin Aspart 100 Units/Ml 3 Ml Pen) 5 unit SUBCUT TIDAC [facility] Last Admin: 04/22/21 13:26 Dose: 5 units Documented by: Insulin Glargine (Insulin Glargine,Human Rec. Analog 100 Units/Ml 3 Ml Pen) 20 units SUBCUT DAILY [facility] Last Admin: 04/22/21 09:29 Dose: 20 units Documented by: Levothyroxine Sodium (Levothyroxine 150 Mcg Tab) 150 mcg PO ACBREAKFAST [facility] Last Admin: 04/22/21 07:20 Dose: 150 mcg Documented by: Methylprednisolone Sodium Succinate (Methylprednisolone Sodium Succinate 40 Mg/1 Ml Sdv) 40 mg IVPUSH Q8H [facility] Last Admin: 04/22/21 13:27 Dose: 40 mg Documented by: Multi-Ingred Cream/Lotion/Oil/Oint (Zinc Oxide 13% Crm 56 Gm Tube) 0 gm TOP ASDIRECTED PRN PRN Reason: Skin protectant Last Admin: 04/15/21 10:57 Dose: 1 applic Documented by: Nystatin (Nystatin Topical Powder 15 Gm Bottle) 0 gm TOP TID [facility] Last Admin: 04/22/21 13:27 Dose: 1 applic Documented by: Pantoprazole Sodium (Pantoprazole 40 Mg Tab.Cr) 40 mg PO ACBREAKFAST [facility] Last Admin: 04/22/21 07:20 Dose: 40 mg Documented by: Polyethylene Glycol (Polyethylene Glycol 3350 Powder 17 Gm Packet) 17 gm PO DAILY PRN PRN Reason: if no BM in 2 days Sodium Chloride (Sodium Chloride 0.65% Nasal [place] 45 Ml Bottle) 0 ml CADE QID PRN PRN Reason: nasal congestion Warfarin Sodium (Warfarin Ask Dosing) 1 each PO Q24H [facility] Last Admin: 04/22/21 13:28 Dose: Not Given Documented by: Warfarin Sodium (Warfarin 1 Mg Tab) 1 mg PO 04/22/21@1400 [facility] Stop: 04/22/21 16:00 Last Admin: 04/22/21 13:27 Dose: 1 mg Documented by: Discontinued Medications Acetazolamide (Acetazolamide 250 Mg Tab) 500 mg PO ONETIME ONE Stop: 04/14/21 09:49 Last Admin: 04/14/21 10:40 Dose: 500 mg Documented by: Albuterol/Ipratropium (Albuterol/Ipratropium 3.0-0.5 Mg/3 Ml Neb Soln) 3 ml INH TID PRN PRN Reason: Shortness of Breath Aspirin (Aspirin 81 Mg Tab.Chew) 324 mg PO ONETIME ONE Stop: 04/04/21 16:13 Last Admin: 04/04/21 16:26 Dose: 324 mg Documented by: Azithromycin (Azithromycin 250 Mg Tab) 500 mg PO Q24H [facility] Last Admin: 04/16/21 14:02 Dose: 500 mg Documented by: Budesonide (Budesonide 0.5 Mg/2 Ml Neb Susp) 1 mg INH TID [facility] Last Admin: 04/16/21 14:04 Dose: 1 mg Documented by: Budesonide (Budesonide 0.5 Mg/2 Ml Neb Susp) Confirm Administered Dose 0.5 mg . ROUTE .STK-MED ONE Stop: 04/07/21 06:24 Last Admin: 04/07/21 15:59 Dose: Not Given Documented by: Dextrose/Water (50% Dextrose In Water 50 Ml Syringe) 50 ml IV ASDIRECTED PRN PRN Reason: Hypoglycemia Dextrose/Water (50% Dextrose In Water 50 Ml Syringe) 50 ml IV ASDIRECTED PRN PRN Reason: Hypoglycemia Dextrose/Water (50% Dextrose In Water 50 Ml Syringe) 50 ml IV ASDIRECTED PRN PRN Reason: Hypoglycemia Dextrose/Water (50% Dextrose In Water 50 Ml Syringe) 50 ml IVPUSH ASDIRECTED PRN PRN Reason: Hypoglycemia Docusate Sodium (Docusate Sodium 100 Mg Cap) 100 mg PO DAILY [facility] Last Admin: 04/11/21 09:05 Dose: Not Given Documented by: Enoxaparin Sodium (Enoxaparin 40 Mg/0.4 Ml Syringe) 40 mg SUBCUT Q12HR [facility] Last Admin: 04/07/21 08:32 Dose: 40 mg Documented by: Furosemide (Furosemide 20 Mg/2 Ml Vial) 20 mg IVPUSH ONETIME ONE Stop: 04/04/21 22:18 Last Admin: 04/04/21 23:02 Dose: 20 mg Documented by: Furosemide (Furosemide 40 Mg/4 Ml Vial) 20 mg IVPUSH NOW ONE Stop: 04/05/21 09:07 Last Admin: 04/05/21 09:39 Dose: 20 mg Documented by: Furosemide (Furosemide 40 Mg/4 Ml Vial) 20 mg IVPUSH ONETIME ONE Stop: 04/05/21 17:01 Last Admin: 04/05/21 16:48 Dose: Not Given Documented by: Furosemide (Furosemide 40 Mg/4 Ml Vial) 40 mg IVPUSH DAILY [facility] Last Admin: 04/07/21 08:27 Dose: 40 mg Documented by: Furosemide (Furosemide 20 Mg/2 Ml Vial) Confirm Administered Dose 20 mg .ROUTE .STK-MED ONE Stop: 04/05/21 21:47 Last Admin: 04/05/21 22:10 Dose: Not Given Documented by: Furosemide (Furosemide 40 Mg/4 Ml Vial) 20 mg IVPUSH NOW ONE Stop: 04/05/21 22:00 Last Admin: 04/05/21 22:09 Dose: 20 mg Documented by: Furosemide (Furosemide 40 Mg/4 Ml Vial) 40 mg IVPUSH BIDDIURETIC [facility] Last Admin: 04/08/21 08:15 Dose: 40 mg Documented by: Furosemide (Furosemide 40 Mg/4 Ml Vial) 40 mg IVPUSH NOW ONE Stop: 04/07/21 22:39 Last Admin: 04/07/21 22:45 Dose: 40 mg Documented by: Furosemide (Furosemide 40 Mg/4 Ml Vial) 40 mg IVPUSH TID [facility] Last Admin: 04/10/21 06:37 Dose: 40 mg Documented by: Furosemide (Furosemide 40 Mg/4 Ml Vial) 60 mg IVPUSH TID [facility] Last Admin: 04/11/21 06:18 Dose: 60 mg Documented by: Furosemide (Furosemide 100 Mg/10 Ml Sdv) 60 mg IVPUSH TID [facility] Last Admin: 04/16/21 05:51 Dose: 60 mg Documented by: Glucagon (Glucagon,Human Recombinant 1 Mg Vial) 1 mg IM ASDIRECTED PRN PRN Reason: Hypoglycemia Glucagon (Glucagon,Human Recombinant 1 Mg Vial) 1 mg IM ASDIRECTED PRN PRN Reason: Hypoglycemia Glucagon (Glucagon,Human Recombinant 1 Mg Vial) 1 mg IM ASDIRECTED PRN PRN Reason: Hypoglycemia Glucagon (Glucagon,Human Recombinant 1 Mg Vial) 1 mg IM ASDIRECTED PRN PRN Reason: Hypoglycemia Ceftriaxone Sodium/Dextrose 2 (gm/ Premix) 50 mls @ 100 mls/hr IV ONETIME ONE Stop: 04/04/21 17:58 Last Admin: 04/04/21 17:45 Dose: 100 mls/hr Documented by: Piperacillin Sod/Tazobactam (Sod 3.375 gm/ Sodium Chloride) 50 mls @ 100 mls/hr IV ONETIME ONE Stop: 04/04/21 21:32 Last Admin: 04/04/21 21:49 Dose: 100 mls/hr Documented by: Piperacillin Sod/Tazobactam (Sod 3.375 gm/ Sodium Chloride) 50 mls @ 100 mls/hr IV Q8H [facility] Last Admin: 04/18/21 06:32 Dose: 100 mls/hr Documented by: Vancomycin HCl 1.5 gm/ Premix 300 mls @ 200 mls/hr IV Q12H [facility] Last Admin: 04/06/21 23:14 Dose: Not Given Documented by: Vancomycin HCl 1.5 gm/ Premix 300 mls @ 200 mls/hr IV Q24H [facility] Last Admin: 04/15/21 10:56 Dose: 200 mls/hr Documented by: Dexmedetomidine/Sodium (Chloride 400 mcg/ Premix) 100 mls @ 6.084 mls/hr IV TITRATE SUJATHA; Protocol Insulin Aspart (Insulin Aspart 100 Units/Ml 3 Ml Pen) 7 unit SUBCUT ONETIME ONE Stop: 04/11/21 18:30 Last Admin: 04/11/21 18:40 Dose: 7 units Documented by: Insulin Aspart (Insulin Aspart 100 Units/Ml 3 Ml Pen) 5 unit SUBCUT ONETIME ONE Stop: 04/11/21 19:42 Last Admin: 04/11/21 19:50 Dose: 5 units Documented by: Insulin Aspart (Insulin Aspart 100 Units/Ml 10 Ml Vial) 10 unit SUBCUT ONETIME ONE Stop: 04/11/21 22:41 Last Admin: 04/11/21 22:53 Dose: 10 units Documented by: Insulin Aspart (Insulin Aspart 100 Units/Ml 10 Ml Vial) 10 unit SUBCUT ONETIME ONE Stop: 04/12/21 02:11 Last Admin: 04/12/21 02:16 Dose: 10 units Documented by: Iopamidol (Iopamidol 755 Mg/Ml 500 Ml Multipack Bottle) 100 ml IVPUSH ONETIME ONE Stop: 04/04/21 18:43 Last Admin: 04/04/21 18:44 Dose: 100 ml Documented by: Lorazepam (Lorazepam 2 Mg/Ml Sdv) 0.5 mg IVPUSH ONETIME PRN PRN Reason: Bipap Methylprednisolone Sodium Succinate (Methylprednisolone Sodium Succinate 40 Mg/1 Ml Sdv) 60 mg IVPUSH Q8H [facility] Last Admin: 04/15/21 06:48 Dose: 60 mg Documented by: Methylprednisolone Sodium Succinate (Methylprednisolone Sodium Succinate 40 Mg/1 Ml Sdv) 40 mg IVPUSH Q8H [facility] Last Admin: 04/17/21 05:59 Dose: 40 mg Documented by: Methylprednisolone Sodium Succinate (Methylprednisolone Sodium Succinate 40 Mg/1 Ml Sdv) 40 mg IVPUSH Q12H [facility] Last Admin: 04/19/21 06:20 Dose: 40 mg Documented by: Polyethylene Glycol (Polyethylene Glycol 3350 Powder 17 Gm Packet) 17 gm PO DAILY [facility] Last Admin: 04/17/21 09:22 Dose: 17 gm Documented by: Potassium Chloride (Potassium Chloride 20 Meq Tab.Er) 40 meq PO ONETIME ONE Stop: 04/06/21 12:31 Last Admin: 04/06/21 12:58 Dose: 40 meq Documented by: Potassium Chloride (Potassium Chloride 20 Meq Tab.Er) 40 meq PO ONETIME ONE Stop: 04/08/21 07:50 Last Admin: 04/08/21 08:15 Dose: 40 meq Documented by: Potassium Chloride (Potassium Chloride 20 Meq Tab.Er) 40 meq PO ONETIME ONE Stop: 04/08/21 12:01 Last Admin: 04/08/21 12:24 Dose: 40 meq Documented by: Potassium Chloride (Potassium Chloride 20 Meq Tab.Er) 40 meq PO TID [facility] Last Admin: 04/18/21 06:35 Dose: 40 meq Documented by: Potassium Chloride (Potassium Chloride 20 Meq Tab.Er) 40 meq PO ONETIME ONE Stop: 04/22/21 09:15 Last Admin: 04/22/21 09:29 Dose: 40 meq Documented by: Prednisone (Prednisone 10 Mg Tab) 10 mg PO BEDTIME [facility] Last Admin: 04/07/21 22:28 Dose: 10 mg Documented by: Prednisone (Prednisone 20 Mg Tab) 20 mg PO DAILY [facility] Last Admin: 04/07/21 08:31 Dose: 20 mg Documented by: Tamsulosin HCl (Tamsulosin 0.4 Mg Cap.Er) 0.4 mg PO ONETIME ONE Stop: 04/05/21 19:16 Last Admin: 04/05/21 19:53 Dose: 0.4 mg Documented by: Vancomycin HCl (Pharmacy To Dose - Vancomycin) 1 dose .XX ASDIRECTED [facility] Warfarin Sodium (Warfarin 2 Mg Tab) 4 mg PO ONETIME ONE Stop: 04/05/21 14:01 Last Admin: 04/05/21 14:05 Dose: 4 mg Documented by: Warfarin Sodium (Warfarin 1 Mg Tab) 3 mg PO ONETIME ONE Stop: 04/06/21 14:01 Last Admin: 04/06/21 13:35 Dose: 3 mg Documented by: Warfarin Sodium (Warfarin 2 Mg Tab) 2 mg PO 04/07/21@1400 [facility] Stop: 04/07/21 15:00 Last Admin: 04/07/21 14:21 Dose: 2 mg Documented by: Warfarin Sodium (Warfarin 1 Mg Tab) 1 mg PO 04/08/21@1400 [facility] Stop: 04/08/21 16:00 Last Admin: 04/08/21 13:44 Dose: 1 mg Documented by: Warfarin Sodium (Warfarin 2.5 Mg Tab) 2.5 mg PO DAILY@1400 [facility] Stop: 04/12/21 15:00 Last Admin: 04/12/21 15:04 Dose: 2.5 mg Documented by: Warfarin Sodium (Warfarin 1 Mg Tab) 3 mg PO DAILY@1400 [facility] Stop: 04/13/21 15:00 Last Admin: 04/13/21 13:00 Dose: 3 mg Documented by: Warfarin Sodium (Warfarin 2.5 Mg Tab) 2.5 mg PO DAILY@1400 [facility] Stop: 04/14/21 15:00 Last Admin: 04/14/21 13:59 Dose: 2.5 mg Documented by: Warfarin Sodium (Warfarin 2.5 Mg Tab) 2.5 mg PO DAILY@[address] [place] [address] Stop: 04/15/21 15:00 Last Admin: 04/15/21 13:49 Dose: 2.5 mg Documented by: Warfarin Sodium (Warfarin 2.5 Mg Tab) 2.5 mg PO 04/17/21@[address] [place] [address] Stop: 04/17/21 16:00 Last Admin: 04/17/21 14:15 Dose: 2.5 mg Documented by: Warfarin Sodium (Warfarin 2 Mg Tab) 4 mg PO ONETIME ONE Stop: 04/18/21 14:31 Last Admin: 04/18/21 15:29 Dose: 4 mg Documented by: Warfarin Sodium (Warfarin 2 Mg Tab) 4 mg PO ONETIME ONE Stop: 04/19/21 14:16 Last Admin: 04/19/21 14:36 Dose: 4 mg Documented by: Warfarin Sodium (Warfarin 2.5 Mg Tab) 2.5 mg PO DAILY@1400 [facility] Stop: 04/20/21 15:00 Last Admin: 04/20/21 14:18 Dose: 2.5 mg Documented by: Warfarin Sodium (Warfarin 2.5 Mg Tab) 2.5 mg PO ONETIME ONE Stop: 04/21/21 14:16 Last Admin: 04/21/21 14:34 Dose: 2.5 mg Documented by: - Exam Quality Assessment: Supplemental Oxygen, DVT Prophylaxis General: Alert, Oriented, Cooperative HEENT: Pupils Equal, Pupils Reactive, EOMI, Mucous Membr. Moist/[place]: Supple. No: JVD Lungs: Clear to Auscultation, Normal Respiratory Effort Cardiovascular: Regular Rate, Regular Rhythm GI/Abdominal Exam: Normal Bowel Sounds, Soft, Non-Tender, No Organomegaly Extremities: Normal Range of Motion, Normal Capillary Refill Peripheral Pulses: 2+: Carotid (L), Carotid (R), Dorsalis Pedis (L), Dorsalis Pedis (R) Skin: Warm, Dry, Intact Neurological: No New Focal Deficit, Normal Speech, Normal Tone Psy/Mental Status: Alert, Normal Affect, Normal Mood - Patient Data Lab Results Last 24 hrs: Laboratory Results - last 24 hr 04/21/21 04/22/21 04/22/21 Range/Units 17:45 05:20 05:20 WBC 24.05 H (4.0-11.0) K/uL RBC 4.39 L (4.50-5.90) M/uL Hgb 14.1 (13.0-17.0) g/dL Hct 43.4 (38.0-50.0) % MCV 98.9 H (80.0-98.0) fL MCH 32.1 H (27.0-32.0) pg MCHC 32.5 (31.0-37.0) g/dL RDW Std Deviation 49.5 (28.0-62.0) fl RDW Coeff of Sunny 14 (11.0-15.0) % Plt Count 154 (150-400) K/uL MPV 13.40 H (7.40-12.00) fL Add Manual Diff YES Neutrophils % (Manual) 91 H (48.0-80.0) % Band Neutrophils % 3 % Lymphocytes % (Manual) 4 L (16.0-40.0) % Monocytes % (Manual) 2 (0.0-15.0) % Nucleated RBC % 0.1 /100WBC Absolute Seg Neuts 21.9 H (1.4-5.7) Band Neutrophils # 0.7 Lymphocytes # (Manual) 1.0 (0.6-2.4) Monocytes # (Manual) 0.5 (0.0-0.8) Nucleated RBCs # 0 K/uL INR 3.24 Sodium (136-148) mmol/L Potassium (3.5-5.1) mmol/L Chloride (98-107) mmol/L Carbon Dioxide (21.0-32.0) mmol/L BUN (7.0-18.0) mg/dL Creatinine (0.8-1.3) mg/dL Est Cr Clr Drug Dosing mL/min Estimated GFR (MDRD) ml/min Glucose (74-106) mg/dL POC Glucose 240 H (70-99) mg/dL Calcium (8.5-10.1) mg/dL Phosphorus (2.6-4.7) mg/dL Magnesium (1.8-2.4) mg/dL Total Bilirubin (0.2-1.0) mg/dL AST (15-37) IU/L ALT (14-63) IU/L Alkaline Phosphatase (46-116) U/L Total Protein (6.4-8.2) g/dL Albumin (3.4-5.0) g/dL Globulin (2.6-4.0) g/dL Albumin/Globulin Ratio (0.9-1.6) 04/22/21 04/22/21 Range/Units 05:20 05:20 WBC (4.0-11.0) K/uL RBC (4.50-5.90) M/uL Hgb (13.0-17.0) g/dL Hct (38.0-50.0) % MCV (80.0-98.0) fL MCH (27.0-32.0) pg MCHC (31.0-37.0) g/dL RDW Std Deviation (28.0-62.0) fl RDW Coeff of Sunny (11.0-15.0) % Plt Count (150-400) K/uL MPV (7.40-12.00) fL Add Manual Diff Neutrophils % (Manual) (48.0-80.0) % Band Neutrophils % % Lymphocytes % (Manual) (16.0-40.0) % Monocytes % (Manual) (0.0-15.0) % Nucleated RBC % /100WBC Absolute Seg Neuts (1.4-5.7) Band Neutrophils # Lymphocytes # (Manual) (0.6-2.4) Monocytes # (Manual) (0.0-0.8) Nucleated RBCs # K/uL INR Sodium 140 (136-148) mmol/L Potassium 3.3 L (3.5-5.1) mmol/L Chloride 98 (98-107) mmol/L Carbon Dioxide 42.3 H (21.0-32.0) mmol/L BUN 40 H (7.0-18.0) mg/dL Creatinine 0.9 (0.8-1.3) mg/dL Est Cr Clr Drug Dosing 80.34 mL/min Estimated GFR (MDRD) > 60.0 ml/min Glucose 229 H (74-106) mg/dL POC Glucose (70-99) mg/dL Calcium 8.3 L (8.5-10.1) mg/dL Phosphorus 3.5 (2.6-4.7) mg/dL Magnesium 2.7 H (1.8-2.4) mg/dL Total Bilirubin 1.2 H (0.2-1.0) mg/dL AST 37 (15-37) IU/L ALT 98 H (14-63) IU/L Alkaline Phosphatase 100 (46-116) U/L Total Protein 4.8 L (6.4-8.2) g/dL Albumin 2.2 L (3.4-5.0) g/dL Globulin 2.6 (2.6-4.0) g/dL Albumin/Globulin Ratio 0.9 (0.9-1.6) Result Diagrams: 04/22/21 05:20 04/22/21 05:20 Sepsis Event Note - Evaluation Sepsis Screening Result: No Definite Risk - Focused Exam Vital Signs: Vital Signs Temp Pulse Resp BP Pulse Ox 04/22/21 11:49 96.4 F L 80 22 H 113/58 L 90 L 04/22/21 08:21 97.2 F 61 22 H 118/64 94 L - Problem List Review Problem List Initiated/Reviewed/Updated: Yes - My Orders Last 24 Hours: My Active Orders 04/23/21 05:11 CBC WITH AUTO DIFF [HEME] AM CMP [COMPREHENSIVE METABOLIC PN,CMP] [CHEM] AM 04/24/21 05:11 CBC WITH AUTO DIFF [HEME] AM CMP [COMPREHENSIVE METABOLIC PN,CMP] [CHEM] AM - Plan Plan:: 80 y/o M admitted for left arm cellulitis who then developed acute on chronic hypoxic respiratory failure. 1. Acute on chronic hypoxic hypercapnic respiratory failure secondary to pulmonary edema, pulmonary fibrosis and possible CAP -Continue to wean oxygen 30 heated high flow, respiratory therapy will adjust and see how patient responds. -Continue Lasix to 40 mg IV TID, -Continue steroids, increased back to q8h, WBC slowly creeping up since admission, stable today since yesterday 24.03. This may be due to steroids, as currently patient has no other signs or indications for any possible infection denies any diarrhea that could indicate possibility of C. difficile. Considered as possible rest due to the fact that he recently completed 2weeks antibiotics. 2. Leukocytosis: discussed above 3. Hyperglycemia due to steroid therapy -Currently on SSI high -Due to steroids blood sugars may continue to be elevated therefore will adjust basal and short acting doses. Adjust Lantus to 29 units daily and 8 units NovoLog to sliding scale at each meal -Continue diabetic diet -steadily improving, continue to monitor closely in the event we wean him off steroids will consider readjusting insulin regimen. 4. Hypothyroidism -Continue levothyroxine 5. History DVT on Coumadin -INR 3.24 today -Appreciate pharmacy's assistance in dosing. 6. Stage I decubitus ulcer to buttocks -Wound care consulted -Reposition every 2 hours, has been declining frequent reposition -PT to help with activity level and reconditioning. 7. Afib - Monitor on telemetry, no further events. - Paroxysmal afib noted 04/15, rate controlled, BP controlled. No distress. -Remains on chronic anticoagulation. VTE prophylaxis: Warfarin GI prophylaxis: Protonix CODE STATUS CPR only, declines intubation if needed.
[2021-04-22] MEDS: atorvaSTATin 40 MG Tab PO SCH (21:18)
[2021-04-23 06:13] LABS: BLOOD UREA NITROGEN,BUN 46 mg/dL (7.0-18.0); CARBON DIOXIDE,CO2 41.5 mmol/L (21.0-32.0); CHLORIDE,CL 99 mmol/L (98-107); GLUCOSE RANDOM 229 mg/dL (74-106); POTASSIUM,K 3.4 mmol/L (3.5-5.1); SODIUM,NA 140 mmol/L (136-148)
[2021-04-23] MEDS: methylPREDNISolone Sodium Succinate 40 MG/1 ML SDV IVPUSH SCH ×3 (06:19→21:27)
[2021-04-23] MEDS: Nystatin Topical Powder 15 GM Bottle TOP SCH ×3 (06:19→21:27)
[2021-04-23] MEDS: Furosemide 40 MG/4 ML VIAL IVPUSH SCH ×3 (06:21→21:27)
[2021-04-23] MEDS ORDERED: Potassium Chloride 20 MEQ Tab.ER PO ONE ×2 (07:47→08:25)
[2021-04-23] MEDS: Insulin Aspart 100 Units/ML 3 ML Pen SUBCUT SCH ×6 (07:47→17:48)
[2021-04-23] MEDS: Pantoprazole 40 MG Tab.CR PO SCH (07:49)
[2021-04-23] MEDS: Levothyroxine 150 MCG Tab PO SCH (07:49)
--- NOTE | 2021-04-23 08:30 | PCM.PN ---
- General Info Date of Service: 04/23/21 - Review of Systems Systems Review Comment:: no new concerns, shortness of breath and weakness persists. - Patient Data Vitals - Most Recent: Last Vital Signs Temp 36.0 C L 04/23/21 07:28 Pulse 75 04/23/21 07:28 Resp 20 04/23/21 07:28 BP 126/75 04/23/21 07:28 Pulse Ox 93 L 04/23/21 07:28 Weight - Most Recent: 108.499 kg I&O - Last 24 Hours: Intake & Output 04/22/21 04/23/21 04/23/21 22:59 06:59 14:59 Intake Total 830 850 Output Total 475 975 Balance 355 -125 Lab Results Last 24 Hours: Laboratory Results - last 24 hr 04/22/21 04/22/21 04/23/21 Range/Units 07:23 17:39 05:10 WBC (4.0-11.0) K/uL RBC (4.50-5.90) M/uL Hgb (13.0-17.0) g/dL Hct (38.0-50.0) % MCV (80.0-98.0) fL MCH (27.0-32.0) pg MCHC (31.0-37.0) g/dL RDW Std Deviation (28.0-62.0) fl RDW Coeff of Sunny (11.0-15.0) % Plt Count (150-400) K/uL MPV (7.40-12.00) fL Neut % (Auto) (48.0-80.0) % Lymph % (Auto) (16.0-40.0) % Pratt % (Auto) (0.0-15.0) % Eos % (Auto) (0.0-7.0) % Baso % (Auto) (0.0-1.5) % Neut # (Auto) (1.4-5.7) K/uL Lymph # (Auto) (0.6-2.4) K/uL Pratt # (Auto) (0.0-0.8) K/uL Eos # (Auto) (0.0-0.7) K/uL Baso # (Auto) (0.0-0.1) K/uL Nucleated RBC % /100WBC Nucleated RBCs # K/uL INR 3.18 Sodium (136-148) mmol/L Potassium (3.5-5.1) mmol/L Chloride (98-107) mmol/L Carbon Dioxide (21.0-32.0) mmol/L BUN (7.0-18.0) mg/dL Creatinine (0.8-1.3) mg/dL Est Cr Clr Drug Dosing mL/min Estimated GFR (MDRD) ml/min Glucose (74-106) mg/dL POC Glucose 210 H 384 H (70-99) mg/dL Calcium (8.5-10.1) mg/dL Total Bilirubin (0.2-1.0) mg/dL AST (15-37) IU/L ALT (14-63) IU/L Alkaline Phosphatase (46-116) U/L Total Protein (6.4-8.2) g/dL Albumin (3.4-5.0) g/dL Globulin (2.6-4.0) g/dL Albumin/Globulin Ratio (0.9-1.6) 04/23/21 04/23/21 04/23/21 Range/Units 05:10 05:10 07:46 WBC 26.80 H (4.0-11.0) K/uL RBC 4.49 L (4.50-5.90) M/uL Hgb 14.3 (13.0-17.0) g/dL Hct 44.1 (38.0-50.0) % MCV 98.2 H (80.0-98.0) fL MCH 31.8 (27.0-32.0) pg MCHC 32.4 (31.0-37.0) g/dL RDW Std Deviation 49.6 (28.0-62.0) fl RDW Coeff of Sunny 14 (11.0-15.0) % Plt Count 152 (150-400) K/uL MPV 13.50 H (7.40-12.00) fL Neut % (Auto) 94.1 H (48.0-80.0) % Lymph % (Auto) 2.9 L (16.0-40.0) % Pratt % (Auto) 2.9 (0.0-15.0) % Eos % (Auto) 0.0 (0.0-7.0) % Baso % (Auto) 0.1 (0.0-1.5) % Neut # (Auto) 25.2 H (1.4-5.7) K/uL Lymph # (Auto) 0.8 (0.6-2.4) K/uL Pratt # (Auto) 0.8 (0.0-0.8) K/uL Eos # (Auto) 0.0 (0.0-0.7) K/uL Baso # (Auto) 0.0 (0.0-0.1) K/uL Nucleated RBC % 0.1 /100WBC Nucleated RBCs # 0 K/uL INR Sodium 140 (136-148) mmol/L Potassium 3.4 L (3.5-5.1) mmol/L Chloride 99 (98-107) mmol/L Carbon Dioxide 41.5 H (21.0-32.0) mmol/L BUN 46 H (7.0-18.0) mg/dL Creatinine 0.9 (0.8-1.3) mg/dL Est Cr Clr Drug Dosing 80.34 mL/min Estimated GFR (MDRD) > 60.0 ml/min Glucose 229 H (74-106) mg/dL POC Glucose 209 H (70-99) mg/dL Calcium 8.4 L (8.5-10.1) mg/dL Total Bilirubin 1.2 H (0.2-1.0) mg/dL AST 36 (15-37) IU/L ALT 109 H (14-63) IU/L Alkaline Phosphatase 109 (46-116) U/L Total Protein 5.0 L (6.4-8.2) g/dL Albumin 2.4 L (3.4-5.0) g/dL Globulin 2.6 (2.6-4.0) g/dL Albumin/Globulin Ratio 0.9 (0.9-1.6) Med Orders - Current: Current Medications Albuterol/Ipratropium (Albuterol/Ipratropium 3.0-0.5 Mg/3 Ml Neb Soln) 3 ml NEB Q4HRRT PRN PRN Reason: Shortness of Breath Last Admin: 04/05/21 12:07 Dose: 3 ml Documented by: Aspirin (Aspirin 81 Mg Tab.Chew) 81 mg PO DAILY SUJATHA Last Admin: 04/22/21 09:29 Dose: 81 mg Documented by: Atorvastatin Calcium (Atorvastatin 40 Mg Tab) 40 mg PO BEDTIME [facility] Last Admin: 04/22/21 21:18 Dose: 40 mg Documented by: Bisacodyl (Bisacodyl 10 Mg Supp) 10 mg RECTAL DAILY PRN PRN Reason: if no BM in 2 days Budesonide (Budesonide 0.5 Mg/2 Ml Neb Susp) 1 mg INH BID [facility] Last Admin: 04/22/21 21:21 Dose: 1 mg Documented by: Dextrose/Water (50% Dextrose In Water 50 Ml Syringe) 50 ml IVPUSH ASDIRECTED PRN PRN Reason: Hypoglycemia Docusate Sodium (Docusate Sodium 100 Mg Cap) 100 mg PO DAILY PRN PRN Reason: Constipation Furosemide (Furosemide 40 Mg/4 Ml Vial) 40 mg IVPUSH TID [facility] Last Admin: 04/23/21 06:21 Dose: 40 mg Documented by: Glucagon (Glucagon,Human Recombinant 1 Mg Vial) 1 mg IM ASDIRECTED PRN PRN Reason: Hypoglycemia Insulin Aspart (Insulin Aspart 100 Units/Ml 3 Ml Pen) 0 unit SUBCUT TIDAC [facility]; Protocol Last Admin: 04/23/21 07:47 Dose: 6 units Documented by: Insulin Aspart (Insulin Aspart 100 Units/Ml 3 Ml Pen) 8 unit SUBCUT TIDAC [facility] Last Admin: 04/23/21 07:47 Dose: 8 units Documented by: Insulin Glargine (Insulin Glargine,Human Rec. Analog 100 Units/Ml 3 Ml Pen) 29 units SUBCUT DAILY [facility] Levothyroxine Sodium (Levothyroxine 150 Mcg Tab) 150 mcg PO ACBREAKFAST [facility] Last Admin: 04/23/21 07:49 Dose: 150 mcg Documented by: Methylprednisolone Sodium Succinate (Methylprednisolone Sodium Succinate 40 Mg/1 Ml Sdv) 40 mg IVPUSH Q8H [facility] Last Admin: 04/23/21 06:19 Dose: 40 mg Documented by: Multi-Ingred Cream/Lotion/Oil/Oint (Zinc Oxide 13% Crm 56 Gm Tube) 0 gm TOP ASDIRECTED PRN PRN Reason: Skin protectant Last Admin: 04/15/21 10:57 Dose: 1 applic Documented by: Nystatin (Nystatin Topical Powder 15 Gm Bottle) 0 gm TOP TID [facility] Last Admin: 04/23/21 06:19 Dose: 1 applic Documented by: Pantoprazole Sodium (Pantoprazole 40 Mg Tab.Cr) 40 mg PO ACBREAKFAST [facility] Last Admin: 04/23/21 07:49 Dose: 40 mg Documented by: Polyethylene Glycol (Polyethylene Glycol 3350 Powder 17 Gm Packet) 17 gm PO DAILY PRN PRN Reason: if no BM in 2 days Sodium Chloride (Sodium Chloride 0.65% Nasal Gilbert 45 Ml Bottle) 0 ml CADE QID PRN PRN Reason: nasal congestion Warfarin Sodium (Warfarin Ask Dosing) 1 each PO Q24H [facility] Last Admin: 04/22/21 13:28 Dose: Not Given Documented by: Warfarin Sodium (Warfarin 1 Mg Tab) 1 mg PO 04/23/21@1400 [facility] Stop: 04/23/21 14:01 Discontinued Medications Acetazolamide (Acetazolamide 250 Mg Tab) 500 mg PO ONETIME ONE Stop: 04/14/21 09:49 Last Admin: 04/14/21 10:40 Dose: 500 mg Documented by: Albuterol/Ipratropium (Albuterol/Ipratropium 3.0-0.5 Mg/3 Ml Neb Soln) 3 ml INH TID PRN PRN Reason: Shortness of Breath Aspirin (Aspirin 81 Mg Tab.Chew) 324 mg PO ONETIME ONE Stop: 04/04/21 16:13 Last Admin: 04/04/21 16:26 Dose: 324 mg Documented by: Azithromycin (Azithromycin 250 Mg Tab) 500 mg PO Q24H [facility] Last Admin: 04/16/21 14:02 Dose: 500 mg Documented by: Budesonide (Budesonide 0.5 Mg/2 Ml Neb Susp) 1 mg INH TID [facility] Last Admin: 04/16/21 14:04 Dose: 1 mg Documented by: Budesonide (Budesonide 0.5 Mg/2 Ml Neb Susp) Confirm Administered Dose 0.5 mg .ROUTE .STK-MED ONE Stop: 04/07/21 06:24 Last Admin: 04/07/21 15:59 Dose: Not Given Documented by: Dextrose/Water (50% Dextrose In Water 50 Ml Syringe) 50 ml IV ASDIRECTED PRN PRN Reason: Hypoglycemia Dextrose/Water (50% Dextrose In Water 50 Ml Syringe) 50 ml IV ASDIRECTED PRN PRN Reason: Hypoglycemia Dextrose/Water (50% Dextrose In Water 50 Ml Syringe) 50 ml IV ASDIRECTED PRN PRN Reason: Hypoglycemia Dextrose/Water (50% Dextrose In Water 50 Ml Syringe) 50 ml IVPUSH ASDIRECTED PRN PRN Reason: Hypoglycemia Docusate Sodium (Docusate Sodium 100 Mg Cap) 100 mg PO DAILY [facility] Last Admin: 04/11/21 09:05 Dose: Not Given Documented by: Enoxaparin Sodium (Enoxaparin 40 Mg/0.4 Ml Syringe) 40 mg SUBCUT Q12HR [facility] Last Admin: 04/07/21 08:32 Dose: 40 mg Documented by: Furosemide (Furosemide 20 Mg/2 Ml Vial) 20 mg IVPUSH ONETIME ONE Stop: 04/04/21 22:18 Last Admin: 04/04/21 23:02 Dose: 20 mg Documented by: Furosemide (Furosemide 40 Mg/4 Ml Vial) 20 mg IVPUSH NOW ONE Stop: 04/05/21 09:07 Last Admin: 04/05/21 09:39 Dose: 20 mg Documented by: Furosemide (Furosemide 40 Mg/4 Ml Vial) 20 mg IVPUSH ONETIME ONE Stop: 04/05/21 17:01 Last Admin: 04/05/21 16:48 Dose: Not Given Documented by: Furosemide (Furosemide 40 Mg/4 Ml Vial) 40 mg IVPUSH DAILY [facility] Last Admin: 04/07/21 08:27 Dose: 40 mg Documented by: Furosemide (Furosemide 20 Mg/2 Ml Vial) Confirm Administered Dose 20 mg .ROUTE .STK-MED ONE Stop: 04/05/21 21:47 Last Admin: 04/05/21 22:10 Dose: Not Given Documented by: Furosemide (Furosemide 40 Mg/4 Ml Vial) 20 mg IVPUSH NOW ONE Stop: 04/05/21 22:00 Last Admin: 04/05/21 22:09 Dose: 20 mg Documented by: Furosemide (Furosemide 40 Mg/4 Ml Vial) 40 mg IVPUSH BIDDIURETIC [facility] Last Admin: 04/08/21 08:15 Dose: 40 mg Documented by: Furosemide (Furosemide 40 Mg/4 Ml Vial) 40 mg IVPUSH NOW ONE Stop: 04/07/21 22:39 Last Admin: 04/07/21 22:45 Dose: 40 mg Documented by: Furosemide (Furosemide 40 Mg/4 Ml Vial) 40 mg IVPUSH TID [facility] Last Admin: 04/10/21 06:37 Dose: 40 mg Documented by: Furosemide (Furosemide 40 Mg/4 Ml Vial) 60 mg IVPUSH TID [facility] Last Admin: 04/11/21 06:18 Dose: 60 mg Documented by: Furosemide (Furosemide 100 Mg/10 Ml Sdv) 60 mg IVPUSH TID [facility] Last Admin: 04/16/21 05:51 Dose: 60 mg Documented by: Glucagon (Glucagon,Human Recombinant 1 Mg Vial) 1 mg IM ASDIRECTED PRN PRN Reason: Hypoglycemia Glucagon (Glucagon,Human Recombinant 1 Mg Vial) 1 mg IM ASDIRECTED PRN PRN Reason: Hypoglycemia Glucagon (Glucagon,Human Recombinant 1 Mg Vial) 1 mg IM ASDIRECTED PRN PRN Reason: Hypoglycemia Glucagon (Glucagon,Human Recombinant 1 Mg Vial) 1 mg IM ASDIRECTED PRN PRN Reason: Hypoglycemia Ceftriaxone Sodium/Dextrose 2 (gm/ Premix) 50 mls @ 100 mls/hr IV ONETIME ONE Stop: 04/04/21 17:58 Last Admin: 04/04/21 17:45 Dose: 100 mls/hr Documented by: Piperacillin Sod/Tazobactam (Sod 3.375 gm/ Sodium Chloride) 50 mls @ 100 mls/hr IV ONETIME ONE Stop: 04/04/21 21:32 Last Admin: 04/04/21 21:49 Dose: 100 mls/hr Documented by: Piperacillin Sod/Tazobactam (Sod 3.375 gm/ Sodium Chloride) 50 mls @ 100 mls/hr IV Q8H [facility] Last Admin: 04/18/21 06:32 Dose: 100 mls/hr Documented by: Vancomycin HCl 1.5 gm/ Premix 300 mls @ 200 mls/hr IV Q12H [facility] Last Admin: 04/06/21 23:14 Dose: Not Given Documented by: Vancomycin HCl 1.5 gm/ Premix 300 mls @ 200 mls/hr IV Q24H [facility] Last Admin: 04/15/21 10:56 Dose: 200 mls/hr Documented by: Dexmedetomidine/Sodium (Chloride 400 mcg/ Premix) 100 mls @ 6.084 mls/hr IV TITRATE [facility]; Protocol Insulin Aspart (Insulin Aspart 100 Units/Ml 3 Ml Pen) 7 unit SUBCUT ONETIME ONE Stop: 04/11/21 18:30 Last Admin: 04/11/21 18:40 Dose: 7 units Documented by: Insulin Aspart (Insulin Aspart 100 Units/Ml 3 Ml Pen) 5 unit SUBCUT ONETIME ONE Stop: 04/11/21 19:42 Last Admin: 04/11/21 19:50 Dose: 5 units Documented by: Insulin Aspart (Insulin Aspart 100 Units/Ml 10 Ml Vial) 10 unit SUBCUT ONETIME ONE Stop: 04/11/21 22:41 Last Admin: 04/11/21 22:53 Dose: 10 units Documented by: Insulin Aspart (Insulin Aspart 100 Units/Ml 10 Ml Vial) 10 unit SUBCUT ONETIME ONE Stop: 04/12/21 02:11 Last Admin: 04/12/21 02:16 Dose: 10 units Documented by: Insulin Aspart (Insulin Aspart 100 Units/Ml 3 Ml Pen) 5 unit SUBCUT TIDAC [facility] Last Admin: 04/22/21 18:07 Dose: 5 units Documented by: Insulin Glargine (Insulin Glargine,Human Rec. Analog 100 Units/Ml 3 Ml Pen) 20 units SUBCUT DAILY [facility] Last Admin: 04/22/21 09:29 Dose: 20 units Documented by: Iopamidol (Iopamidol 755 Mg/Ml 500 Ml Multipack Bottle) 100 ml IVPUSH ONETIME ONE Stop: 04/04/21 18:43 Last Admin: 04/04/21 18:44 Dose: 100 ml Documented by: Lorazepam (Lorazepam 2 Mg/Ml Sdv) 0.5 mg IVPUSH ONETIME PRN PRN Reason: Bipap Methylprednisolone Sodium Succinate (Methylprednisolone Sodium Succinate 40 Mg/1 Ml Sdv) 60 mg IVPUSH Q8H [facility] Last Admin: 04/15/21 06:48 Dose: 60 mg Documented by: Methylprednisolone Sodium Succinate (Methylprednisolone Sodium Succinate 40 Mg/1 Ml Sdv) 40 mg IVPUSH Q8H [facility] Last Admin: 04/17/21 05:59 Dose: 40 mg Documented by: Methylprednisolone Sodium Succinate (Methylprednisolone Sodium Succinate 40 Mg/1 Ml Sdv) 40 mg IVPUSH Q12H [facility] Last Admin: 04/19/21 06:20 Dose: 40 mg Documented by: Polyethylene Glycol (Polyethylene Glycol 3350 Powder 17 Gm Packet) 17 gm PO DAILY [facility] Last Admin: 04/17/21 09:22 Dose: 17 gm Documented by: Potassium Chloride (Potassium Chloride 20 Meq Tab.Er) 40 meq PO ONETIME ONE Stop: 04/06/21 12:31 Last Admin: 04/06/21 12:58 Dose: 40 meq Documented by: Potassium Chloride (Potassium Chloride 20 Meq Tab.Er) 40 meq PO ONETIME ONE Stop: 04/08/21 07:50 Last Admin: 04/08/21 08:15 Dose: 40 meq Documented by: Potassium Chloride (Potassium Chloride 20 Meq Tab.Er) 40 meq PO ONETIME ONE Stop: 04/08/21 12:01 Last Admin: 04/08/21 12:24 Dose: 40 meq Documented by: Potassium Chloride (Potassium Chloride 20 Meq Tab.Er) 40 meq PO TID [facility] Last Admin: 04/18/21 06:35 Dose: 40 meq Documented by: Potassium Chloride (Potassium Chloride 20 Meq Tab.Er) 40 meq PO ONETIME ONE Stop: 04/22/21 09:15 Last Admin: 04/22/21 09:29 Dose: 40 meq Documented by: Potassium Chloride (Potassium Chloride 20 Meq Tab.Er) 40 meq PO ONETIME ONE Stop: 04/23/21 07:48 Prednisone (Prednisone 10 Mg Tab) 10 mg PO BEDTIME [facility] Last Admin: 04/07/21 22:28 Dose: 10 mg Documented by: Prednisone (Prednisone 20 Mg Tab) 20 mg PO DAILY [facility] Last Admin: 04/07/21 08:31 Dose: 20 mg Documented by: Tamsulosin HCl (Tamsulosin 0.4 Mg Cap.Er) 0.4 mg PO ONETIME ONE Stop: 04/05/21 19:16 Last Admin: 04/05/21 19:53 Dose: 0.4 mg Documented by: Vancomycin HCl (Pharmacy To Dose - Vancomycin) 1 dose .XX ASDIRECTED [facility] Warfarin Sodium (Warfarin 2 Mg Tab) 4 mg PO ONETIME ONE Stop: 04/05/21 14:01 Last Admin: 04/05/21 14:05 Dose: 4 mg Documented by: Warfarin Sodium (Warfarin 1 Mg Tab) 3 mg PO ONETIME ONE Stop: 04/06/21 14:01 Last Admin: 04/06/21 13:35 Dose: 3 mg Documented by: Warfarin Sodium (Warfarin 2 Mg Tab) 2 mg PO 04/07/21@1400 [facility] Stop: 04/07/21 15:00 Last Admin: 04/07/21 14:21 Dose: 2 mg Documented by: Warfarin Sodium (Warfarin 1 Mg Tab) 1 mg PO 04/08/21@[address] [place] [address] Stop: 04/08/21 16:00 Last Admin: 04/08/21 13:44 Dose: 1 mg Documented by: Warfarin Sodium (Warfarin 2.5 Mg Tab) 2.5 mg PO DAILY@1400 [facility] Stop: 04/12/21 15:00 Last Admin: 04/12/21 15:04 Dose: 2.5 mg Documented by: Warfarin Sodium (Warfarin 1 Mg Tab) 3 mg PO DAILY@[address] [place] [address] Stop: 04/13/21 15:00 Last Admin: 04/13/21 13:00 Dose: 3 mg Documented by: Warfarin Sodium (Warfarin 2.5 Mg Tab) 2.5 mg PO DAILY@[address] [place] [address] Stop: 04/14/21 15:00 Last Admin: 04/14/21 13:59 Dose: 2.5 mg Documented by: Warfarin Sodium (Warfarin 2.5 Mg Tab) 2.5 mg PO DAILY@[address] [place] [address] Stop: 04/15/21 15:00 Last Admin: 04/15/21 13:49 Dose: 2.5 mg Documented by: Warfarin Sodium (Warfarin 2.5 Mg Tab) 2.5 mg PO 04/17/21@[address] [place] [address] Stop: 04/17/21 16:00 Last Admin: 04/17/21 14:15 Dose: 2.5 mg Documented by: Warfarin Sodium (Warfarin 2 Mg Tab) 4 mg PO ONETIME ONE Stop: 04/18/21 14:31 Last Admin: 04/18/21 15:29 Dose: 4 mg Documented by: Warfarin Sodium (Warfarin 2 Mg Tab) 4 mg PO ONETIME ONE Stop: 04/19/21 14:16 Last Admin: 04/19/21 14:36 Dose: 4 mg Documented by: Warfarin Sodium (Warfarin 2.5 Mg Tab) 2.5 mg PO DAILY@[address] [place] [address] Stop: 04/20/21 15:00 Last Admin: 04/20/21 14:18 Dose: 2.5 mg Documented by: Warfarin Sodium (Warfarin 2.5 Mg Tab) 2.5 mg PO ONETIME ONE Stop: 04/21/21 14:16 Last Admin: 04/21/21 14:34 Dose: 2.5 mg Documented by: Warfarin Sodium (Warfarin 1 Mg Tab) 1 mg PO 04/22/21@[address] [place] [address] Stop: 04/22/21 16:00 Last Admin: 04/22/21 13:27 Dose: 1 mg Documented by: - Exam General: Alert, Oriented Neck: Supple Lungs: Normal Respiratory Effort, Decreased Breath Sounds Cardiovascular: Regular Rate, Regular Rhythm GI/Abdominal Exam: Soft, Non-Tender, No Distention Extremities: Non-Tender, No Pedal Edema Skin: Warm, Dry, Intact Neurological: No New Focal Deficit - Patient Data Lab Results Last 24 hrs: Laboratory Results - last 24 hr 04/22/21 04/22/21 04/23/21 Range/Units 07:23 17:39 05:10 WBC (4.0-11.0) K/uL RBC (4.50-5.90) M/uL Hgb (13.0-17.0) g/dL Hct (38.0-50.0) % MCV (80.0-98.0) fL MCH (27.0-32.0) pg MCHC (31.0-37.0) g/dL RDW Std Deviation (28.0-62.0) fl RDW Coeff of Sunny (11.0-15.0) % Plt Count (150-400) K/uL MPV (7.40-12.00) fL Neut % (Auto) (48.0-80.0) % Lymph % (Auto) (16.0-40.0) % Pratt % (Auto) (0.0-15.0) % Eos % (Auto) (0.0-7.0) % Baso % (Auto) (0.0-1.5) % Neut # (Auto) (1.4-5.7) K/uL Lymph # (Auto) (0.6-2.4) K/uL Pratt # (Auto) (0.0-0.8) K/uL Eos # (Auto) (0.0-0.7) K/uL Baso # (Auto) (0.0-0.1) K/uL Nucleated RBC % /100WBC Nucleated RBCs # K/uL INR 3.18 Sodium (136-148) mmol/L Potassium (3.5-5.1) mmol/L Chloride (98-107) mmol/L Carbon Dioxide (21.0-32.0) mmol/L BUN (7.0-18.0) mg/dL Creatinine (0.8-1.3) mg/dL Est Cr Clr Drug Dosing mL/min Estimated GFR (MDRD) ml/min Glucose (74-106) mg/dL POC Glucose 210 H 384 H (70-99) mg/dL Calcium (8.5-10.1) mg/dL Total Bilirubin (0.2-1.0) mg/dL AST (15-37) IU/L ALT (14-63) IU/L Alkaline Phosphatase (46-116) U/L Total Protein (6.4-8.2) g/dL Albumin (3.4-5.0) g/dL Globulin (2.6-4.0) g/dL Albumin/Globulin Ratio (0.9-1.6) 04/23/21 04/23/21 04/23/21 Range/Units 05:10 05:10 07:46 WBC 26.80 H (4.0-11.0) K/uL RBC 4.49 L (4.50-5.90) M/uL Hgb 14.3 (13.0-17.0) g/dL Hct 44.1 (38.0-50.0) % MCV 98.2 H (80.0-98.0) fL MCH 31.8 (27.0-32.0) pg MCHC 32.4 (31.0-37.0) g/dL RDW Std Deviation 49.6 (28.0-62.0) fl RDW Coeff of Sunny 14 (11.0-15.0) % Plt Count 152 (150-400) K/uL MPV 13.50 H (7.40-12.00) fL Neut % (Auto) 94.1 H (48.0-80.0) % Lymph % (Auto) 2.9 L (16.0-40.0) % Pratt % (Auto) 2.9 (0.0-15.0) % Eos % (Auto) 0.0 (0.0-7.0) % Baso % (Auto) 0.1 (0.0-1.5) % Neut # (Auto) 25.2 H (1.4-5.7) K/uL Lymph # (Auto) 0.8 (0.6-2.4) K/uL Pratt # (Auto) 0.8 (0.0-0.8) K/uL Eos # (Auto) 0.0 (0.0-0.7) K/uL Baso # (Auto) 0.0 (0.0-0.1) K/uL Nucleated RBC % 0.1 /100WBC Nucleated RBCs # 0 K/uL INR Sodium 140 (136-148) mmol/L Potassium 3.4 L (3.5-5.1) mmol/L Chloride 99 (98-107) mmol/L Carbon Dioxide 41.5 H (21.0-32.0) mmol/L BUN 46 H (7.0-18.0) mg/dL Creatinine 0.9 (0.8-1.3) mg/dL Est Cr Clr Drug Dosing 80.34 mL/min Estimated GFR (MDRD) > 60.0 ml/min Glucose 229 H (74-106) mg/dL POC Glucose 209 H (70-99) mg/dL Calcium 8.4 L (8.5-10.1) mg/dL Total Bilirubin 1.2 H (0.2-1.0) mg/dL AST 36 (15-37) IU/L ALT 109 H (14-63) IU/L Alkaline Phosphatase 109 (46-116) U/L Total Protein 5.0 L (6.4-8.2) g/dL Albumin 2.4 L (3.4-5.0) g/dL Globulin 2.6 (2.6-4.0) g/dL Albumin/Globulin Ratio 0.9 (0.9-1.6) Result Diagrams: 04/23/21 05:10 04/23/21 05:10 Sepsis Event Note - Evaluation Sepsis Screening Result: No Definite Risk - Focused Exam Vital Signs: Vital Signs Temp Pulse Resp BP BP Pulse Ox 04/23/21 07:28 36.0 C L 75 20 126/75 93 L 04/23/21 04:17 36.7 C 67 20 126/67 93 L 04/23/21 01:00 36.7 C 68 19 108/49 L 94 L 04/22/21 21:15 36 C L 78 21 H 129/64 94 L - Problem List Review Problem List Initiated/Reviewed/Updated: Yes - My Orders Last 24 Hours: My Active Orders 04/23/21 14:00 Warfarin [Coumadin] 1 mg PO 04/23/21@1400 - Plan Plan:: 80 y/o M admitted for left arm cellulitis who then developed acute on chronic hypoxic respiratory failure. 1. Acute on chronic hypoxic hypercapnic respiratory failure secondary to pulmonary edema, pulmonary fibrosis and possible CAP -Continue to wean oxygen, continue on 4 L NC -Continue Lasix to 40 mg IV TID, -Continue steroids -We have had multiple conversations with patient and family regarding poor prognosis and waxing and waning nature of his illness. His goal of cure from his illness and return to his normal health a year ago is highly unlikely and hospice has been recommended. Patient's son has expressed frustration of lack of positivity. Patient and family is wanting a second opinion. I have offered calling or transferring for pulmonology consultation but patient and family has declined. They were also not satisfied with the programming equipment operator they saw in [place]. They plan on talking with [facility] and mentioned they may call a programming equipment operator in [place]. 2. Hyperglycemia due to steroid therapy -Currently on SSI high continue Lantus 29 units daily and 8 units NovoLog to sliding scale at each meal -Continue diabetic diet -continue to monitor closely in the event we wean him off steroids will consider readjusting insulin regimen. 3. Hypothyroidism -Continue levothyroxine 4. History DVT on Coumadin -INR 3.18 today -Appreciate pharmacy's assistance in dosing. 5. Stage I decubitus ulcer to buttocks -Wound care consulted -Reposition every 2 hours, has been declining frequent reposition -PT to help with activity level and reconditioning. 6. Afib - Monitor on telemetry, no further events. - Paroxysmal afib noted 04/15, rate controlled, BP controlled. No distress. -Remains on chronic anticoagulation. VTE prophylaxis: Warfarin GI prophylaxis: Protonix CODE STATUS CPR only, declines intubation if needed.
[2021-04-23] MEDS: Aspirin 81 MG Tab.Chew PO SCH (08:39)
[2021-04-23] MEDS: Insulin Glargine,Human Rec. Analog 100 Units/ML 3 ML Pen SUBCUT SCH (08:39)
[2021-04-23] MEDS: Budesonide 0.5 MG/2 ML Neb Susp INH SCH ×2 (08:54→20:44)
[2021-04-23] MEDS: atorvaSTATin 40 MG Tab PO SCH (20:44)
[2021-04-24] MEDS: methylPREDNISolone Sodium Succinate 40 MG/1 ML SDV IVPUSH SCH ×3 (05:54→21:29)
[2021-04-24] MEDS: Furosemide 40 MG/4 ML VIAL IVPUSH SCH ×3 (05:57→21:29)
[2021-04-24 06:25] LABS: BLOOD UREA NITROGEN,BUN 48 mg/dL (7.0-18.0); CHLORIDE,CL 99 mmol/L (98-107); GLUCOSE RANDOM 173 mg/dL (74-106); POTASSIUM,K 4.1 mmol/L (3.5-5.1); SODIUM,NA 140 mmol/L (136-148)
[2021-04-24] MEDS: Levothyroxine 150 MCG Tab PO SCH (07:27)
[2021-04-24] MEDS: Pantoprazole 40 MG Tab.CR PO SCH (07:27)
[2021-04-24] MEDS: Insulin Aspart 100 Units/ML 3 ML Pen SUBCUT SCH ×6 (07:28→17:43)
[2021-04-24] MEDS: Nystatin Topical Powder 15 GM Bottle TOP SCH ×3 (07:29→21:30)
[2021-04-24] MEDS: Aspirin 81 MG Tab.Chew PO SCH (08:36)
[2021-04-24] MEDS: Insulin Glargine,Human Rec. Analog 100 Units/ML 3 ML Pen SUBCUT SCH (08:36)
[2021-04-24] MEDS: Budesonide 0.5 MG/2 ML Neb Susp INH SCH ×2 (08:57→21:00)
--- NOTE | 2021-04-24 16:22 | PCM.PN ---
- General Info Date of Service: 04/24/21 Admission Dx/Problem (Free Text): Admission Diagnosis/Problem Admission Diagnosis/Problem Cellulitis and significant history of pulmonary fibrosis Subjective Update: Patient continues to be treated for pulmonary fibrosis, awaiting second opinion and consult from [facility]. Patient was resting in bed, in no acute distress, remains on 4 L NC, recently weaned from heated high flow. Otherwise denies any new concerns this morning, all questions and concerns were addressed at bedside.` Functional Status: Reports: Tolerating Diet, Urinating, Incentive Spirometry. Denies: New Symptoms - Review of Systems General: Reports: No Symptoms HEENT: Reports: No Symptoms Pulmonary: Reports: No Symptoms, Other (On nasal cannula oxygen) Cardiovascular: Reports: No Symptoms Gastrointestinal: Reports: No Symptoms Genitourinary: Reports: No Symptoms Musculoskeletal: Reports: No Symptoms Skin: Reports: No Symptoms Neurological: Reports: No Symptoms Psychiatric: Reports: No Symptoms - Patient Data Vitals - Most Recent: Last Vital Signs Temp 97.0 F 04/24/21 11:08 Pulse 78 04/24/21 11:08 Resp 20 04/24/21 11:08 BP 101/57 L 04/24/21 11:08 Pulse Ox 96 04/24/21 11:08 Weight - Most Recent: 239 lb 6.4 oz I&O - Last 24 Hours: Intake & Output 04/24/21 04/24/21 04/24/21 06:59 14:59 22:59 Intake Total 650 Output Total 850 Balance -200 Lab Results Last 24 Hours: Laboratory Results - last 24 hr 04/23/21 04/24/21 04/24/21 Range/Units 17:47 05:12 05:12 WBC 31.09 H (4.0-11.0) K/uL RBC 4.36 L (4.50-5.90) M/uL Hgb 14.1 (13.0-17.0) g/dL Hct 42.9 (38.0-50.0) % MCV 98.4 H (80.0-98.0) fL MCH 32.3 H (27.0-32.0) pg MCHC 32.9 (31.0-37.0) g/dL RDW Std Deviation 49.8 (28.0-62.0) fl RDW Coeff of Sunny 14 (11.0-15.0) % Plt Count 132 L (150-400) K/uL MPV 13.10 H (7.40-12.00) fL Add Manual Diff YES Neutrophils % (Manual) 90 H (48.0-80.0) % Band Neutrophils % 4 % Lymphocytes % (Manual) 2 L (16.0-40.0) % Monocytes % (Manual) 4 (0.0-15.0) % Nucleated RBC % 0.1 /100WBC Absolute Seg Neuts 28.0 H (1.4-5.7) Band Neutrophils # 1.2 Lymphocytes # (Manual) 0.6 (0.6-2.4) Monocytes # (Manual) 1.2 H (0.0-0.8) Nucleated RBCs # 0 K/uL INR 3.18 Sodium (136-148) mmol/L Potassium (3.5-5.1) mmol/L Chloride (98-107) mmol/L Carbon Dioxide (21.0-32.0) mmol/L BUN (7.0-18.0) mg/dL Creatinine (0.8-1.3) mg/dL Est Cr Clr Drug Dosing mL/min Estimated GFR (MDRD) ml/min Glucose (74-106) mg/dL POC Glucose 228 H (70-99) mg/dL Calcium (8.5-10.1) mg/dL Total Bilirubin (0.2-1.0) mg/dL AST (15-37) IU/L ALT (14-63) IU/L Alkaline Phosphatase (46-116) U/L Total Protein (6.4-8.2) g/dL Albumin (3.4-5.0) g/dL Globulin (2.6-4.0) g/dL Albumin/Globulin Ratio (0.9-1.6) 04/24/21 04/24/21 04/24/21 Range/Units 05:12 06:40 11:21 WBC (4.0-11.0) K/uL RBC (4.50-5.90) M/uL Hgb (13.0-17.0) g/dL Hct (38.0-50.0) % MCV (80.0-98.0) fL MCH (27.0-32.0) pg MCHC (31.0-37.0) g/dL RDW Std Deviation (28.0-62.0) fl RDW Coeff of Sunny (11.0-15.0) % Plt Count (150-400) K/uL MPV (7.40-12.00) fL Add Manual Diff Neutrophils % (Manual) (48.0-80.0) % Band Neutrophils % % Lymphocytes % (Manual) (16.0-40.0) % Monocytes % (Manual) (0.0-15.0) % Nucleated RBC % /100WBC Absolute Seg Neuts (1.4-5.7) Band Neutrophils # Lymphocytes # (Manual) (0.6-2.4) Monocytes # (Manual) (0.0-0.8) Nucleated RBCs # K/uL INR Sodium 140 (136-148) mmol/L Potassium 4.1 (3.5-5.1) mmol/L Chloride 99 (98-107) mmol/L Carbon Dioxide 41.0 H (21.0-32.0) mmol/L BUN 48 H (7.0-18.0) mg/dL Creatinine 0.9 (0.8-1.3) mg/dL Est Cr Clr Drug Dosing 80.34 mL/min Estimated GFR (MDRD) > 60.0 ml/min Glucose 173 H (74-106) mg/dL POC Glucose 153 H 222 H (70-99) mg/dL Calcium 8.2 L (8.5-10.1) mg/dL Total Bilirubin 1.6 H (0.2-1.0) mg/dL AST 38 H (15-37) IU/L ALT 110 H (14-63) IU/L Alkaline Phosphatase 110 (46-116) U/L Total Protein 4.6 L (6.4-8.2) g/dL Albumin 2.3 L (3.4-5.0) g/dL Globulin 2.3 L (2.6-4.0) g/dL Albumin/Globulin Ratio 1.0 (0.9-1.6) Med Orders - Current: Current Medications Albuterol/Ipratropium (Albuterol/Ipratropium 3.0-0.5 Mg/3 Ml Neb Soln) 3 ml NEB Q4HRRT PRN PRN Reason: Shortness of Breath Last Admin: 04/05/21 12:07 Dose: 3 ml Documented by: Aspirin (Aspirin 81 Mg Tab.Chew) 81 mg PO DAILY [facility] Last Admin: 04/24/21 08:36 Dose: 81 mg Documented by: Atorvastatin Calcium (Atorvastatin 40 Mg Tab) 40 mg PO BEDTIME [facility] Last Admin: 04/23/21 20:44 Dose: 40 mg Documented by: Bisacodyl (Bisacodyl 10 Mg Supp) 10 mg RECTAL DAILY PRN PRN Reason: if no BM in 2 days Budesonide (Budesonide 0.5 Mg/2 Ml Neb Susp) 1 mg INH BID [facility] Last Admin: 04/24/21 08:57 Dose: 1 mg Documented by: Dextrose/Water (50% Dextrose In Water 50 Ml Syringe) 50 ml IVPUSH ASDIRECTED PRN PRN Reason: Hypoglycemia Docusate Sodium (Docusate Sodium 100 Mg Cap) 100 mg PO DAILY PRN PRN Reason: Constipation Furosemide (Furosemide 40 Mg/4 Ml Vial) 40 mg IVPUSH TID [facility] Last Admin: 04/24/21 13:43 Dose: 40 mg Documented by: Glucagon (Glucagon,Human Recombinant 1 Mg Vial) 1 mg IM ASDIRECTED PRN PRN Reason: Hypoglycemia Insulin Aspart (Insulin Aspart 100 Units/Ml 3 Ml Pen) 0 unit SUBCUT TIDAC [facility]; Protocol Last Admin: 04/24/21 12:06 Dose: 6 units Documented by: Insulin Aspart (Insulin Aspart 100 Units/Ml 3 Ml Pen) 8 unit SUBCUT TIDAC [facility] Last Admin: 04/24/21 12:07 Dose: 8 units Documented by: Insulin Glargine (Insulin Glargine,Human Rec. Analog 100 Units/Ml 3 Ml Pen) 29 units SUBCUT DAILY [facility] Last Admin: 04/24/21 08:36 Dose: 29 units Documented by: Levothyroxine Sodium (Levothyroxine 150 Mcg Tab) 150 mcg PO ACBREAKFAST [facility] Last Admin: 04/24/21 07:27 Dose: 150 mcg Documented by: Methylprednisolone Sodium Succinate (Methylprednisolone Sodium Succinate 40 Mg/1 Ml Sdv) 40 mg IVPUSH Q8H [facility] Last Admin: 04/24/21 13:43 Dose: 40 mg Documented by: Multi-Ingred Cream/Lotion/Oil/Oint (Zinc Oxide 13% Crm 56 Gm Tube) 0 gm TOP ASDIRECTED PRN PRN Reason: Skin protectant Last Admin: 04/15/21 10:57 Dose: 1 applic Documented by: Nystatin (Nystatin Topical Powder 15 Gm Bottle) 0 gm TOP TID [facility] Last Admin: 04/24/21 13:43 Dose: 1 applic Documented by: Pantoprazole Sodium (Pantoprazole 40 Mg Tab.Cr) 40 mg PO ACBREAKFAST [facility] Last Admin: 04/24/21 07:27 Dose: 40 mg Documented by: Polyethylene Glycol (Polyethylene Glycol 3350 Powder 17 Gm Packet) 17 gm PO DAILY PRN PRN Reason: if no BM in 2 days Sodium Chloride (Sodium Chloride 0.65% Nasal [place] 45 Ml Bottle) 0 ml CADE QID PRN PRN Reason: nasal congestion Warfarin Sodium (Warfarin Ask Dosing) 1 each PO Q24H [facility] Last Admin: 04/24/21 13:48 Dose: Not Given Documented by: Discontinued Medications Acetazolamide (Acetazolamide 250 Mg Tab) 500 mg PO ONETIME ONE Stop: 04/14/21 09:49 Last Admin: 04/14/21 10:40 Dose: 500 mg Documented by: Albuterol/Ipratropium (Albuterol/Ipratropium 3.0-0.5 Mg/3 Ml Neb Soln) 3 ml INH TID PRN PRN Reason: Shortness of Breath Aspirin (Aspirin 81 Mg Tab.Chew) 324 mg PO ONETIME ONE Stop: 04/04/21 16:13 Last Admin: 04/04/21 16:26 Dose: 324 mg Documented by: Azithromycin (Azithromycin 250 Mg Tab) 500 mg PO Q24H [facility] Last Admin: 04/16/21 14:02 Dose: 500 mg Documented by: Budesonide (Budesonide 0.5 Mg/2 Ml Neb Susp) 1 mg INH TID [facility] Last Admin: 04/16/21 14:04 Dose: 1 mg Documented by: Budesonide (Budesonide 0.5 Mg/2 Ml Neb Susp) Confirm Administered Dose 0.5 mg .ROUTE .STK-MED ONE Stop: 04/07/21 06:24 Last Admin: 04/07/21 15:59 Dose: Not Given Documented by: Dextrose/Water (50% Dextrose In Water 50 Ml Syringe) 50 ml IV ASDIRECTED PRN PRN Reason: Hypoglycemia Dextrose/Water (50% Dextrose In Water 50 Ml Syringe) 50 ml IV ASDIRECTED PRN PRN Reason: Hypoglycemia Dextrose/Water (50% Dextrose In Water 50 Ml Syringe) 50 ml IV ASDIRECTED PRN PRN Reason: Hypoglycemia Dextrose/Water (50% Dextrose In Water 50 Ml Syringe) 50 ml IVPUSH ASDIRECTED PRN PRN Reason: Hypoglycemia Docusate Sodium (Docusate Sodium 100 Mg Cap) 100 mg PO DAILY [facility] Last Admin: 04/11/21 09:05 Dose: Not Given Documented by: Enoxaparin Sodium (Enoxaparin 40 Mg/0.4 Ml Syringe) 40 mg SUBCUT Q12HR [facility] Last Admin: 04/07/21 08:32 Dose: 40 mg Documented by: Furosemide (Furosemide 20 Mg/2 Ml Vial) 20 mg IVPUSH ONETIME ONE Stop: 04/04/21 22:18 Last Admin: 04/04/21 23:02 Dose: 20 mg Documented by: Furosemide (Furosemide 40 Mg/4 Ml Vial) 20 mg IVPUSH NOW ONE Stop: 04/05/21 09:07 Last Admin: 04/05/21 09:39 Dose: 20 mg Documented by: Furosemide (Furosemide 40 Mg/4 Ml Vial) 20 mg IVPUSH ONETIME ONE Stop: 04/05/21 17:01 Last Admin: 04/05/21 16:48 Dose: Not Given Documented by: Furosemide (Furosemide 40 Mg/4 Ml Vial) 40 mg IVPUSH DAILY [facility] Last Admin: 04/07/21 08:27 Dose: 40 mg Documented by: Furosemide (Furosemide 20 Mg/2 Ml Vial) Confirm Administered Dose 20 mg .ROUTE .STK-MED ONE Stop: 04/05/21 21:47 Last Admin: 04/05/21 22:10 Dose: Not Given Documented by: Furosemide (Furosemide 40 Mg/4 Ml Vial) 20 mg IVPUSH NOW ONE Stop: 04/05/21 22:00 Last Admin: 04/05/21 22:09 Dose: 20 mg Documented by: Furosemide (Furosemide 40 Mg/4 Ml Vial) 40 mg IVPUSH BIDDIURETIC [facility] Last Admin: 04/08/21 08:15 Dose: 40 mg Documented by: Furosemide (Furosemide 40 Mg/4 Ml Vial) 40 mg IVPUSH NOW ONE Stop: 04/07/21 22:39 Last Admin: 04/07/21 22:45 Dose: 40 mg Documented by: Furosemide (Furosemide 40 Mg/4 Ml Vial) 40 mg IVPUSH TID [facility] Last Admin: 04/10/21 06:37 Dose: 40 mg Documented by: Furosemide (Furosemide 40 Mg/4 Ml Vial) 60 mg IVPUSH TID [facility] Last Admin: 04/11/21 06:18 Dose: 60 mg Documented by: Furosemide (Furosemide 100 Mg/10 Ml Sdv) 60 mg IVPUSH TID [facility] Last Admin: 04/16/21 05:51 Dose: 60 mg Documented by: Glucagon (Glucagon,Human Recombinant 1 Mg Vial) 1 mg IM ASDIRECTED PRN PRN Reason: Hypoglycemia Glucagon (Glucagon,Human Recombinant 1 Mg Vial) 1 mg IM ASDIRECTED PRN PRN Reason: Hypoglycemia Glucagon (Glucagon,Human Recombinant 1 Mg Vial) 1 mg IM ASDIRECTED PRN PRN Reason: Hypoglycemia Glucagon (Glucagon,Human Recombinant 1 Mg Vial) 1 mg IM ASDIRECTED PRN PRN Reason: Hypoglycemia Ceftriaxone Sodium/Dextrose 2 (gm/ Premix) 50 mls @ 100 mls/hr IV ONETIME ONE Stop: 04/04/21 17:58 Last Admin: 04/04/21 17:45 Dose: 100 mls/hr Documented by: Piperacillin Sod/Tazobactam (Sod 3.375 gm/ Sodium Chloride) 50 mls @ 100 mls/hr IV ONETIME ONE Stop: 04/04/21 21:32 Last Admin: 04/04/21 21:49 Dose: 100 mls/hr Documented by: Piperacillin Sod/Tazobactam (Sod 3.375 gm/ Sodium Chloride) 50 mls @ 100 mls/hr IV Q8H [facility] Last Admin: 04/18/21 06:32 Dose: 100 mls/hr Documented by: Vancomycin HCl 1.5 gm/ Premix 300 mls @ 200 mls/hr IV Q12H [facility] Last Admin: 04/06/21 23:14 Dose: Not Given Documented by: Vancomycin HCl 1.5 gm/ Premix 300 mls @ 200 mls/hr IV Q24H [facility] Last Admin: 04/15/21 10:56 Dose: 200 mls/hr Documented by: Dexmedetomidine/Sodium (Chloride 400 mcg/ Premix) 100 mls @ 6.084 mls/hr IV TIT RATE [facility]; Protocol Insulin Aspart (Insulin Aspart 100 Units/Ml 3 Ml Pen) 7 unit SUBCUT ONETIME ONE Stop: 04/11/21 18:30 Last Admin: 04/11/21 18:40 Dose: 7 units Documented by: Insulin Aspart (Insulin Aspart 100 Units/Ml 3 Ml Pen) 5 unit SUBCUT ONETIME ONE Stop: 04/11/21 19:42 Last Admin: 04/11/21 19:50 Dose: 5 units Documented by: Insulin Aspart (Insulin Aspart 100 Units/Ml 10 Ml Vial) 10 unit SUBCUT ONETIME ONE Stop: 04/11/21 22:41 Last Admin: 04/11/21 22:53 Dose: 10 units Documented by: Insulin Aspart (Insulin Aspart 100 Units/Ml 10 Ml Vial) 10 unit SUBCUT ONETIME ONE Stop: 04/12/21 02:11 Last Admin: 04/12/21 02:16 Dose: 10 units Documented by: Insulin Aspart (Insulin Aspart 100 Units/Ml 3 Ml Pen) 5 unit SUBCUT TIDAC [facility] Last Admin: 04/22/21 18:07 Dose: 5 units Documented by: Insulin Glargine (Insulin Glargine,Human Rec. Analog 100 Units/Ml 3 Ml Pen) 20 units SUBCUT DAILY [facility] Last Admin: 04/22/21 09:29 Dose: 20 units Documented by: Iopamidol (Iopamidol 755 Mg/Ml 500 Ml Multipack Bottle) 100 ml IVPUSH ONETIME ONE Stop: 04/04/21 18:43 Last Admin: 04/04/21 18:44 Dose: 100 ml Documented by: Lorazepam (Lorazepam 2 Mg/Ml Sdv) 0.5 mg IVPUSH ONETIME PRN PRN Reason: Bipap Methylprednisolone Sodium Succinate (Methylprednisolone Sodium Succinate 40 Mg/1 Ml Sdv) 60 mg IVPUSH Q8H [facility] Last Admin: 04/15/21 06:48 Dose: 60 mg Documented by: Methylprednisolone Sodium Succinate (Methylprednisolone Sodium Succinate 40 Mg/1 Ml Sdv) 40 mg IVPUSH Q8H [facility] Last Admin: 04/17/21 05:59 Dose: 40 mg Documented by: Methylprednisolone Sodium Succinate (Methylprednisolone Sodium Succinate 40 Mg/1 Ml Sdv) 40 mg IVPUSH Q12H [facility] Last Admin: 04/19/21 06:20 Dose: 40 mg Documented by: Polyethylene Glycol (Polyethylene Glycol 3350 Powder 17 Gm Packet) 17 gm PO DAILY [facility] Last Admin: 04/17/21 09:22 Dose: 17 gm Documented by: Potassium Chloride (Potassium Chloride 20 Meq Tab.Er) 40 meq PO ONETIME ONE Stop: 04/06/21 12:31 Last Admin: 04/06/21 12:58 Dose: 40 meq Documented by: Potassium Chloride (Potassium Chloride 20 Meq Tab.Er) 40 meq PO ONETIME ONE Stop: 04/08/21 07:50 Last Admin: 04/08/21 08:15 Dose: 40 meq Documented by: Potassium Chloride (Potassium Chloride 20 Meq Tab.Er) 40 meq PO ONETIME ONE Stop: 04/08/21 12:01 Last Admin: 04/08/21 12:24 Dose: 40 meq Documented by: Potassium Chloride (Potassium Chloride 20 Meq Tab.Er) 40 meq PO TID [facility] Last Admin: 04/18/21 06:35 Dose: 40 meq Documented by: Potassium Chloride (Potassium Chloride 20 Meq Tab.Er) 40 meq PO ONETIME ONE Stop: 04/22/21 09:15 Last Admin: 04/22/21 09:29 Dose: 40 meq Documented by: Potassium Chloride (Potassium Chloride 20 Meq Tab.Er) 40 meq PO ONETIME ONE Stop: 04/23/21 07:48 Last Admin: 04/23/21 08:38 Dose: Not Given Documented by: Potassium Chloride (Potassium Chloride 20 Meq Tab.Er) 40 meq PO ONETIME ONE Stop: 04/23/21 08:26 Last Admin: 04/23/21 10:07 Dose: 40 meq Documented by: Prednisone (Prednisone 10 Mg Tab) 10 mg PO BEDTIME [facility] Last Admin: 04/07/21 22:28 Dose: 10 mg Documented by: Prednisone (Prednisone 20 Mg Tab) 20 mg PO DAILY [facility] Last Admin: 04/07/21 08:31 Dose: 20 mg Documented by: Tamsulosin HCl (Tamsulosin 0.4 Mg Cap.Er) 0.4 mg PO ONETIME ONE Stop: 04/05/21 19:16 Last Admin: 04/05/21 19:53 Dose: 0.4 mg Documented by: Vancomycin HCl (Pharmacy To Dose - Vancomycin) 1 dose .XX ASDIRECTED [facility] Warfarin Sodium (Warfarin 2 Mg Tab) 4 mg PO ONETIME ONE Stop: 04/05/21 14:01 Last Admin: 04/05/21 14:05 Dose: 4 mg Documented by: Warfarin Sodium (Warfarin 1 Mg Tab) 3 mg PO ONETIME ONE Stop: 04/06/21 14:01 Last Admin: 04/06/21 13:35 Dose: 3 mg Documented by: Warfarin Sodium (Warfarin 2 Mg Tab) 2 mg PO 04/07/21@1400 [facility] Stop: 04/07/21 15:00 Last Admin: 04/07/21 14:21 Dose: 2 mg Documented by: Warfarin Sodium (Warfarin 1 Mg Tab) 1 mg PO 04/08/21@1400 [facility] Stop: 04/08/21 16:00 Last Admin: 04/08/21 13:44 Dose: 1 mg Documented by: Warfarin Sodium (Warfarin 2.5 Mg Tab) 2.5 mg PO DAILY@1400 [facility] Stop: 04/12/21 15:00 Last Admin: 04/12/21 15:04 Dose: 2.5 mg Documented by: Warfarin Sodium (Warfarin 1 Mg Tab) 3 mg PO DAILY@[address] [place] [address] Stop: 04/13/21 15:00 Last Admin: 04/13/21 13:00 Dose: 3 mg Documented by: Warfarin Sodium (Warfarin 2.5 Mg Tab) 2.5 mg PO DAILY@[address] [place] [address] Stop: 04/14/21 15:00 Last Admin: 04/14/21 13:59 Dose: 2.5 mg Documented by: Warfarin Sodium (Warfarin 2.5 Mg Tab) 2.5 mg PO DAILY@[address] [place] [address] Stop: 04/15/21 15:00 Last Admin: 04/15/21 13:49 Dose: 2.5 mg Documented by: Warfarin Sodium (Warfarin 2.5 Mg Tab) 2.5 mg PO 04/17/21@1400 [facility] Stop: 04/17/21 16:00 Last Admin: 04/17/21 14:15 Dose: 2.5 mg Documented by: Warfarin Sodium (Warfarin 2 Mg Tab) 4 mg PO ONETIME ONE Stop: 04/18/21 14:31 Last Admin: 04/18/21 15:29 Dose: 4 mg Documented by: Warfarin Sodium (Warfarin 2 Mg Tab) 4 mg PO ONETIME ONE Stop: 04/19/21 14:16 Last Admin: 04/19/21 14:36 Dose: 4 mg Documented by: Warfarin Sodium (Warfarin 2.5 Mg Tab) 2.5 mg PO DAILY@1400 [facility] Stop: 04/20/21 15:00 Last Admin: 04/20/21 14:18 Dose: 2.5 mg Documented by: Warfarin Sodium (Warfarin 2.5 Mg Tab) 2.5 mg PO ONETIME ONE Stop: 04/21/21 14:16 Last Admin: 04/21/21 14:34 Dose: 2.5 mg Documented by: Warfarin Sodium (Warfarin 1 Mg Tab) 1 mg PO 04/22/21@1400 [facility] Stop: 04/22/21 16:00 Last Admin: 04/22/21 13:27 Dose: 1 mg Documented by: Warfarin Sodium (Warfarin 1 Mg Tab) 1 mg PO 04/23/21@1400 [facility] Stop: 04/23/21 14:01 Last Admin: 04/23/21 13:42 Dose: 1 mg Documented by: - Exam Quality Assessment: Supplemental Oxygen (4 L nasal cannula), DVT Prophylaxis (On warfarin for history of DVTs ) General: Alert, Oriented HEENT: Pupils Equal, Pupils Reactive, EOMI Lungs: Clear to Auscultation, Normal Respiratory Effort Cardiovascular: Regular Rate, Regular Rhythm GI/Abdominal Exam: Normal Bowel Sounds, Soft, Non-Tender, No Distention Back Exam: Normal Inspection Extremities: Normal Inspection Peripheral Pulses: 2+: Carotid (L), Carotid (R), Dorsalis Pedis (L), Dorsalis Pedis (R) Skin: Warm, Dry, Intact, Other (Stage I decubitus ulcer, clean dry and intact. Encourage patient to mobilize to prevent further progression) Wound/Incisions: Dressing Dry and Intact, No Drainage Neurological: No New Focal Deficit Psy/Mental Status: Alert, Normal Affect, Normal Mood - Patient Data Lab Results Last 24 hrs: Laboratory Results - last 24 hr 04/23/21 04/24/21 04/24/21 Range/Units 17:47 05:12 05:12 WBC 31.09 H (4.0-11.0) K/uL RBC 4.36 L (4.50-5.90) M/uL Hgb 14.1 (13.0-17.0) g/dL Hct 42.9 (38.0-50.0) % MCV 98.4 H (80.0-98.0) fL MCH 32.3 H (27.0-32.0) pg MCHC 32.9 (31.0-37.0) g/dL RDW Std Deviation 49.8 (28.0-62.0) fl RDW Coeff of Sunny 14 (11.0-15.0) % Plt Count 132 L (150-400) K/uL MPV 13.10 H (7.40-12.00) fL Add Manual Diff YES Neutrophils % (Manual) 90 H (48.0-80.0) % Band Neutrophils % 4 % Lymphocytes % (Manual) 2 L (16.0-40.0) % Monocytes % (Manual) 4 (0.0-15.0) % Nucleated RBC % 0.1 /100WBC Absolute Seg Neuts 28.0 H (1.4-5.7) Band Neutrophils # 1.2 Lymphocytes # (Manual) 0.6 (0.6-2.4) Monocytes # (Manual) 1.2 H (0.0-0.8) Nucleated RBCs # 0 K/uL INR 3.18 Sodium (136-148) mmol/L Potassium (3.5-5.1) mmol/L Chloride (98-107) mmol/L Carbon Dioxide (21.0-32.0) mmol/L BUN (7.0-18.0) mg/dL Creatinine (0.8-1.3) mg/dL Est Cr Clr Drug Dosing mL/min Estimated GFR (MDRD) ml/min Glucose (74-106) mg/dL POC Glucose 228 H (70-99) mg/dL Calcium (8.5-10.1) mg/dL Total Bilirubin (0.2-1.0) mg/dL AST (15-37) IU/L ALT (14-63) IU/L Alkaline Phosphatase (46-116) U/L Total Protein (6.4-8.2) g/dL Albumin (3.4-5.0) g/dL Globulin (2.6-4.0) g/dL Albumin/Globulin Ratio (0.9-1.6) 04/24/21 04/24/21 04/24/21 Range/Units 05:12 06:40 11:21 WBC (4.0-11.0) K/uL RBC (4.50-5.90) M/uL Hgb (13.0-17.0) g/dL Hct (38.0-50.0) % MCV (80.0-98.0) fL MCH (27.0-32.0) pg MCHC (31.0-37.0) g/dL RDW Std Deviation (28.0-62.0) fl RDW Coeff of Sunny (11.0-15.0) % Plt Count (150-400) K/uL MPV (7.40-12.00) fL Add Manual Diff Neutrophils % (Manual) (48.0-80.0) % Band Neutrophils % % Lymphocytes % (Manual) (16.0-40.0) % Monocytes % (Manual) (0.0-15.0) % Nucleated RBC % /100WBC Absolute Seg Neuts (1.4-5.7) Band Neutrophils # Lymphocytes # (Manual) (0.6-2.4) Monocytes # (Manual) (0.0-0.8) Nucleated RBCs # K/uL INR Sodium 140 (136-148) mmol/L Potassium 4.1 (3.5-5.1) mmol/L Chloride 99 (98-107) mmol/L Carbon Dioxide 41.0 H (21.0-32.0) mmol/L BUN 48 H (7.0-18.0) mg/dL Creatinine 0.9 (0.8-1.3) mg/dL Est Cr Clr Drug Dosing 80.34 mL/min Estimated GFR (MDRD) > 60.0 ml/min Glucose 173 H (74-106) mg/dL POC Glucose 153 H 222 H (70-99) mg/dL Calcium 8.2 L (8.5-10.1) mg/dL Total Bilirubin 1.6 H (0.2-1.0) mg/dL AST 38 H (15-37) IU/L ALT 110 H (14-63) IU/L Alkaline Phosphatase 110 (46-116) U/L Total Protein 4.6 L (6.4-8.2) g/dL Albumin 2.3 L (3.4-5.0) g/dL Globulin 2.3 L (2.6-4.0) g/dL Albumin/Globulin Ratio 1.0 (0.9-1.6) Result Diagrams: 04/24/21 05:12 04/24/21 05:12 Sepsis Event Note - Evaluation Sepsis Screening Result: No Definite Risk - Focused Exam Vital Signs: Vital Signs Temp Pulse Resp BP Pulse Ox 04/24/21 11:08 97.0 F 78 20 101/57 L 96 04/24/21 07:09 96.6 F L 76 20 123/54 L 94 L 04/24/21 04:25 97 F 71 20 109/58 L 95 - Problem List Review Problem List Initiated/Reviewed/Updated: Yes - Plan Plan:: 80 y/o M admitted for left arm cellulitis who then developed acute on chronic hypoxic respiratory failure. 1. Acute on chronic hypoxic hypercapnic respiratory failure secondary to pulmonary edema, pulmonary fibrosis and possible CAP -Continue to wean oxygen, currently on 4 L NC -Continue Lasix to 40 mg IV TID, -Continue steroids -We have had multiple conversations with patient and family regarding poor prognosis and waxing and waning nature of his illness. His goal of cure from hi s illness and return to his normal health a year ago is highly unlikely and hospice has been recommended. Patient's son has expressed frustration of lack of positivity. Patient and family is wanting a second opinion. I have offered calling or transferring for pulmonology consultation but patient and family has declined. They were also not satisfied with the outreach counselor they saw in [place]. They plan on talking with [facility] and mentioned they may call a outreach counselor in [place]. Records have been forwarded to [facility], awaiting recommendations. However due to the fact that the patient is currently on nasal cannula not requiring heated high flow discussed possibility of considering return to [place] for long-term care. 2. Hyperglycemia due to steroid therapy -Currently on SSI high continue Lantus 29 units daily and 8 units NovoLog to sliding scale at each meal -Continue diabetic diet -continue to monitor closely in the event we wean him off steroids will consider readjusting insulin regimen. 3. Hypothyroidism -Continue levothyroxine 4. History DVT on Coumadin -INR 3.18 today -Appreciate pharmacy's assistance in dosing. 5. Stage I decubitus ulcer to buttocks -Wound care consulted -Reposition every 2 hours, has been declining frequent reposition -PT to help with activity level and reconditioning. 6. Afib - Monitor on telemetry, no further events. - Paroxysmal afib noted 04/15, rate controlled, BP controlled. No distress. -Remains on chronic anticoagulation. VTE prophylaxis: Warfarin GI prophylaxis: Protonix CODE STATUS CPR only, declines intubation if needed.
[2021-04-24] MEDS: atorvaSTATin 40 MG Tab PO SCH (21:00)
[2021-04-25] MEDS: Nystatin Topical Powder 15 GM Bottle TOP SCH ×2 (06:15→14:28)
[2021-04-25] MEDS: methylPREDNISolone Sodium Succinate 40 MG/1 ML SDV IVPUSH SCH ×2 (06:15→14:58)
[2021-04-25] MEDS: Furosemide 40 MG/4 ML VIAL IVPUSH SCH ×2 (06:15→14:27)
[2021-04-25 07:53] LABS: BLOOD UREA NITROGEN,BUN 59 mg/dL (7.0-18.0); CARBON DIOXIDE,CO2 39.6 mmol/L (21.0-32.0); GLUCOSE RANDOM 125 mg/dL (74-106)
[2021-04-25] MEDS: Insulin Aspart 100 Units/ML 3 ML Pen SUBCUT SCH ×4 (08:46→12:54)
[2021-04-25] MEDS: Levothyroxine 150 MCG Tab PO SCH (08:48)
[2021-04-25] MEDS: Pantoprazole 40 MG Tab.CR PO SCH (08:48)
[2021-04-25] MEDS: Aspirin 81 MG Tab.Chew PO SCH (08:49)
[2021-04-25] MEDS: Insulin Glargine,Human Rec. Analog 100 Units/ML 3 ML Pen SUBCUT SCH (10:00)
--- NOTE | 2021-04-25 12:03 | PCM.DCSUM1 ---
Discharge Summary - Hospital Course HPI Initial Comments: Patient is a 80-year-old man with a past medical history of left lower extremity DVT, COPD, chronic respiratory failure, pulmonary fibrosis with multiple recent admissions for pneumonia who is a resident at [facility] for physical therapy who comes to the emergency department with a chief complaint of left arm swelling and redness, Patient denies any chest pain, shortness of breath, abdominal pain, nausea or vomiting. Denies any fevers or chills. Per family, patient recently Rituxan shot and they noticed that he had a left upper arm cellulitis that extended from the mid upper arm all the way down to the wrist. Patient was started him on doxycycline and the redness in the upper arm has improved however the lower part of the arm and hand has started to blister. Patient has CT scan of his left upper extremity which revealed a significant a mount of edema versus cellulitis without evidence of air or abscess formation. Patient has been started on antibiotics here in the ED. Patient does have an elevated WBC count with a left shift. An ultrasound of his left upper extremity was done to rule out DVT. Patient was admitted for further management Brief History: Patient admitted for left arm cellulitis as well as progressive pulmonary fibrosis. Patient was treated with 2 weeks of antibiotics cellulitis is cleared, however patient was kept on heated high flow for an extended period of time and recently was weaned to 4 L nasal cannula. In the interim discussed with patient and family his unfortunate diagnosis of pulmonary fibrosis. Suggested long-term care or hospice. Patient and family consulted [facility] and will be transferred today for additional care. Diagnosis: Stroke: No - Discharge Data Discharge Date: 04/25/21 Discharge Disposition: DC/Tfer to [facility] 03 Condition: Stable - Referral to Home Health Primary Care Physician: Kirk Rajan MD - Patient Summary/Data Consults: Consultations 04/10/21 13:13 Consult to Hospice [CONS] Routine 04/14/21 09:25 Consult to Wound Care Services [CONS] Routine 04/15/21 08:52 PT Evaluation and Treatment [CONS] Routine Hospital Course: Patient was treated for left arm cellulitis and progressive pulmonary fibrosis. Was given antibiotics for an extended period of 2 weeks. Was successfully weaned from heated high flow to 4 L nasal cannula. In the interim thoroughly discussed with patient and family likely prognosis of his underlying pulmonary fibrosis as well as the need for long-term additional care. We appreciate patient being accepted to [facility], transfer and discharge will be facilitated today. - Patient Instructions Diet: Low Sodium, Fluid Restriction (2 L daily), Diabetic Diet Activity: As Tolerated Driving: Do Not Drive Showering/Bathing: May Shower Wound/Incision Care: Keep Operative Site/Wound Site Clean and Dry, Change Dressing Daily Notify Provider of: Fever, Increased Pain, Swelling and Redness, Drainage, Nausea and/or Vomiting Other/Special Instructions: PT/OT/ST to evaluate and treat. Oxygen per nasal cannula at 5 L to keep sats greater than 88%. May need to increase to max 10 L with activity. Wound care nurse to evaluate skin break down, stage 1 ulcer to buttocks. Continue Zinc oxide ointment to areas when soiled and cover with Allevyn dressings. Blood sugar checks before each meal and at bedtime. INR check on 04/24/2021, results to Dr Rajan - Discharge Plan *PRESCRIPTION DRUG MONITORING PROGRAM REVIEWED*: Not Applicable *COPY OF PRESCRIPTION DRUG MONITORING REPORT IN PATIENT RONALDO: Not Applicable Prescriptions/Med Rec: Albuterol/Ipratropium [DuoNeb 3.0-0.5 MG/3 ML] 3 ml NEB Q4HRRT PRN 30 Days #1 neb PRN Reason: Shortness Of Breath Furosemide [Lasix] 40 mg IVPUSH TID 30 Days vial Home Medications: Home Meds Folic Acid 1 mg PO DAILY 11/17/20 [History] Furosemide [Lasix] 60 mg PO DAILY 11/17/20 [History] Levothyroxine 150 mcg PO ACBREAKFAST 11/17/20 [History] Potassium Chloride [Klor-Con M20] 20 meq PO DAILY 11/17/20 [History] atorvaSTATin [Lipitor] 40 mg PO BEDTIME 01/28/21 [History] predniSONE [Prednisone] 20 mg PO DAILY 01/28/21 [History] Cyanocobalamin (Vitamin B12) [Vitamin B12] 500 mcg PO DAILY #14 tablet 02/10/21 [Rx] Acetaminophen 650 mg PO Q4H PRN 04/04/21 [History] Ascorbic Acid 500 mg PO DAILY 04/04/21 [History] Aspirin 81 mg PO DAILY 04/04/21 [History] Cholecalciferol (Vitamin D3) [Vitamin D3] 2,000 unit PO DAILY 04/04/21 [History] Docusate Sodium 100 mg PO DAILY 04/04/21 [History] Ipratropium/Albuterol Sulfate [Iprat-Albut 0.5-3(2.5) MG/3 ML] 3 ml IH QID PRN 04/04/21 [History] Vitamin E 400 unit PO DAILY 04/04/21 [History] predniSONE [Prednisone] 10 mg PO BEDTIME 04/04/21 [History] Warfarin Sodium 3 mg PO TUWETH 04/05/21 [History] Warfarin Sodium 4 mg PO FR 04/05/21 [History] Warfarin Sodium [Jantoven] 2 mg PO SUSA 04/05/21 [History] Budesonide [Pulmicort] 1 mg INH BID neb 04/18/21 [Rx] Zinc Oxide [Desitin Creamy Diaper Rash Crm] 1 applic TOP ASDIRECTED PRN tube 04/18/21 [Rx] Albuterol/Ipratropium [DuoNeb 3.0-0.5 MG/3 ML] 3 ml NEB Q4HRRT PRN 30 Days #1 neb 04/25/21 [Rx] Furosemide [Lasix] 40 mg IVPUSH TID 30 Days vial 04/25/21 [Rx] Oxygen Therapy Mode: Nasal Cannula Oxygen Flow Rate (L/min): 4 (may increase up to 10 L with activity/exertion) Maintain SpO2% greater than: 88 Patient Handouts: Cellulitis, Adult, Chronic Respiratory Failure, Acute Respiratory Failure, Adult Referrals: Kirk Rajan MD [Primary Care Provider] - - Discharge Summary/Plan Comment DC Time >30 min.: Yes Discharge Summary/Plan Comment: Patient will be discharged to [facility] for additional care required for his underlying pulmonary fibrosis. In the interim should there be any need for any additional records given close all appropriate medication list and records. [facility] has reviewed them prior to excepting. Please feel free to contact us and the event there are any additional questions - Patient Data Vitals - Most Recent: Last Vital Signs Temp 97.0 F 04/25/21 06:58 Pulse 74 04/25/21 06:58 Resp 19 04/25/21 04:00 BP 107/58 L 04/25/21 04:00 Pulse Ox 94 L 04/25/21 06:58 Weight - Most Recent: 239 lb 6.4 oz I&O - Last 24 hours: Intake & Output 04/24/21 04/25/21 04/25/21 22:59 06:59 14:59 Intake Total 800 650 Output Total 500 500 Balance 300 150 Lab Results - Last 24 hrs: Laboratory Results - last 24 hr 04/25/21 04/25/21 04/25/21 Range/Units 07:20 07:20 08:45 WBC 35.14 H (4.0-11.0) K/uL RBC 4.04 L (4.50-5.90) M/uL Hgb 13.1 (13.0-17.0) g/dL Hct 39.3 (38.0-50.0) % MCV 97.3 (80.0-98.0) fL MCH 32.4 H (27.0-32.0) pg MCHC 33.3 (31.0-37.0) g/dL RDW Std Deviation 50.0 (28.0-62.0) fl RDW Coeff of Sunny 14 (11.0-15.0) % Plt Count 134 L (150-400) K/uL MPV 13.60 H (7.40-12.00) fL Add Manual Diff YES Neutrophils % (Manual) 92 H (48.0-80.0) % Band Neutrophils % 3 % Lymphocytes % (Manual) 3 L (16.0-40.0) % Monocytes % (Manual) 2 (0.0-15.0) % Nucleated RBC % 0.0 /100WBC Absolute Seg Neuts 32.3 H (1.4-5.7) Band Neutrophils # 1.1 Lymphocytes # (Manual) 1.1 (0.6-2.4) Monocytes # (Manual) 0.7 (0.0-0.8) Nucleated RBCs # 0 K/uL INR 2.07 Sodium 125 L (136-148) mmol/L Potassium 4.1 (3.5-5.1) mmol/L Chloride 97 L (98-107) mmol/L Carbon Dioxide 39.6 H (21.0-32.0) mmol/L BUN 59 H (7.0-18.0) mg/dL Creatinine 1.1 (0.8-1.3) mg/dL Est Cr Clr Drug Dosing 65.73 mL/min Estimated GFR (MDRD) > 60.0 ml/min Glucose 125 H (74-106) mg/dL POC Glucose (70-99) mg/dL Calcium 8.0 L (8.5-10.1) mg/dL Phosphorus 3.8 (2.6-4.7) mg/dL Magnesium 2.8 H (1.8-2.4) mg/dL Total Bilirubin 1.8 H (0.2-1.0) mg/dL AST 47 H (15-37) IU/L ALT 118 H (14-63) IU/L Alkaline Phosphatase 112 (46-116) U/L Total Protein 4.7 L (6.4-8.2) g/dL Albumin 2.3 L (3.4-5.0) g/dL Globulin 2.4 L (2.6-4.0) g/dL Albumin/Globulin Ratio 1.0 (0.9-1.6) SARS-CoV-2 RNA (MELIDA) (NEGATIVE) 04/25/21 04/25/21 Range/Units 10:55 11:54 WBC (4.0-11.0) K/uL RBC (4.50-5.90) M/uL Hgb (13.0-17.0) g/dL Hct (38.0-50.0) % MCV (80.0-98.0) fL MCH (27.0-32.0) pg MCHC (31.0-37.0) g/dL RDW Std Deviation (28.0-62.0) fl RDW Coeff of Sunny (11.0-15.0) % Plt Count (150-400) K/uL MPV (7.40-12.00) fL Add Manual Diff Neutrophils % (Manual) (48.0-80.0) % Band Neutrophils % % Lymphocytes % (Manual) (16.0-40.0) % Monocytes % (Manual) (0.0-15.0) % Nucleated RBC % /100WBC Absolute Seg Neuts (1.4-5.7) Band Neutrophils # Lymphocytes # (Manual) (0.6-2.4) Monocytes # (Manual) (0.0-0.8) Nucleated RBCs # K/uL INR Sodium (136-148) mmol/L Potassium (3.5-5.1) mmol/L Chloride (98-107) mmol/L Carbon Dioxide (21.0-32.0) mmol/L BUN (7.0-18.0) mg/dL Creatinine (0.8-1.3) mg/dL Est Cr Clr Drug Dosing mL/min Estimated GFR (MDRD) ml/min Glucose (74-106) mg/dL POC Glucose 216 H (70-99) mg/dL Calcium (8.5-10.1) mg/dL Phosphorus (2.6-4.7) mg/dL Magnesium (1.8-2.4) mg/dL Total Bilirubin (0.2-1.0) mg/dL AST (15-37) IU/L ALT (14-63) IU/L Alkaline Phosphatase (46-116) U/L Total Protein (6.4-8.2) g/dL Albumin (3.4-5.0) g/dL Globulin (2.6-4.0) g/dL Albumin/Globulin Ratio (0.9-1.6) SARS-CoV-2 RNA (MELIDA) NEGATIVE (NEGATIVE) Med Orders - Current: Current Medications Albuterol/Ipratropium (Albuterol/Ipratropium 3.0-0.5 Mg/3 Ml Neb Soln) 3 ml NEB Q4HRRT PRN PRN Reason: Shortness of Breath Last Admin: 04/05/21 12:07 Dose: 3 ml Documented by: Aspirin (Aspirin 81 Mg Tab.Chew) 81 mg PO DAILY [facility] Last Admin: 04/25/21 08:49 Dose: 81 mg Documented by: Atorvastatin Calcium (Atorvastatin 40 Mg Tab) 40 mg PO BEDTIME [facility] Last Admin: 04/24/21 21:00 Dose: 40 mg Documented by: Bisacodyl (Bisacodyl 10 Mg Supp) 10 mg RECTAL DAILY PRN PRN Reason: if no BM in 2 days Budesonide (Budesonide 0.5 Mg/2 Ml Neb Susp) 1 mg INH BID [facility] Last Admin: 04/24/21 21:00 Dose: Not Given Documented by: Dextrose/Water (50% Dextrose In Water 50 Ml Syringe) 50 ml IVPUSH ASDIRECTED PRN PRN Reason: Hypoglycemia Docusate Sodium (Docusate Sodium 100 Mg Cap) 100 mg PO DAILY PRN PRN Reason: Constipation Furosemide (Furosemide 40 Mg/4 Ml Vial) 40 mg IVPUSH TID [facility] Last Admin: 04/25/21 06:15 Dose: 40 mg Documented by: Glucagon (Glucagon,Human Recombinant 1 Mg Vial) 1 mg IM ASDIRECTED PRN PRN Reason: Hypoglycemia Insulin Aspart (Insulin Aspart 100 Units/Ml 3 Ml Pen) 0 unit SUBCUT TIDAC [facility]; Protocol Last Admin: 04/25/21 08:46 Dose: Not Given Documented by: Insulin Aspart (Insulin Aspart 100 Units/Ml 3 Ml Pen) 8 unit SUBCUT TIDAC [facility] Last Admin: 04/25/21 08:48 Dose: 8 units Documented by: Insulin Glargine (Insulin Glargine,Human Rec. Analog 100 Units/Ml 3 Ml Pen) 29 units SUBCUT DAILY [facility] Last Admin: 04/25/21 10:00 Dose: 29 units Documented by: Levothyroxine Sodium (Levothyroxine 150 Mcg Tab) 150 mcg PO ACBREAKFAST [facility] Last Admin: 04/25/21 08:48 Dose: 150 mcg Documented by: Methylprednisolone Sodium Succinate (Methylprednisolone Sodium Succinate 40 Mg/1 Ml Sdv) 40 mg IVPUSH Q8H [facility] Last Admin: 04/25/21 06:15 Dose: 40 mg Documented by: Multi-Ingred Cream/Lotion/Oil/Oint (Zinc Oxide 13% Crm 56 Gm Tube) 0 gm TOP ASDIRECTED PRN PRN Reason: Skin protectant Last Admin: 04/15/21 10:57 Dose: 1 applic Documented by: Nystatin (Nystatin Topical Powder 15 Gm Bottle) 0 gm TOP TID [facility] Last Admin: 04/25/21 06:15 Dose: 1 applic Documented by: Pantoprazole Sodium (Pantoprazole 40 Mg Tab.Cr) 40 mg PO ACBREAKFAST [facility] Last Admin: 04/25/21 08:48 Dose: 40 mg Documented by: Polyethylene Glycol (Polyethylene Glycol 3350 Powder 17 Gm Packet) 17 gm PO DAILY PRN PRN Reason: if no BM in 2 days Sodium Chloride (Sodium Chloride 0.65% Nasal [place] 45 Ml Bottle) 0 ml CADE QID PRN PRN Reason: nasal congestion Warfarin Sodium (Warfarin Ask Dosing) 1 each PO Q24H [facility] Last Admin: 04/24/21 13:48 Dose: Not Given Documented by: Warfarin Sodium (Warfarin 1 Mg Tab) 1 mg PO DAILY@1400 [facility] Stop: 04/25/21 15:00 Discontinued Medications Acetazolamide (Acetazolamide 250 Mg Tab) 500 mg PO ONETIME ONE Stop: 04/14/21 09:49 Last Admin: 04/14/21 10:40 Dose: 500 mg Documented by: Albuterol/Ipratropium (Albuterol/Ipratropium 3.0-0.5 Mg/3 Ml Neb Soln) 3 ml INH TID PRN PRN Reason: Shortness of Breath Aspirin (Aspirin 81 Mg Tab.Chew) 324 mg PO ONETIME ONE Stop: 04/04/21 16:13 Last Admin: 04/04/21 16:26 Dose: 324 mg Documented by: Azithromycin (Azithromycin 250 Mg Tab) 500 mg PO Q24H [facility] Last Admin: 04/16/21 14:02 Dose: 500 mg Documented by: Budesonide (Budesonide 0.5 Mg/2 Ml Neb Susp) 1 mg INH TID [facility] Last Admin: 04/16/21 14:04 Dose: 1 mg Documented by: Budesonide (Budesonide 0.5 Mg/2 Ml Neb Susp) Confirm Administered Dose 0.5 mg .ROUTE .STK-MED ONE Stop: 04/07/21 06:24 Last Admin: 04/07/21 15:59 Dose: Not Given Documented by: Dextrose/Water (50% Dextrose In Water 50 Ml Syringe) 50 ml IV ASDIRECTED PRN PRN Reason: Hypoglycemia Dextrose/Water (50% Dextrose In Water 50 Ml Syringe) 50 ml IV ASDIRECTED PRN PRN Reason: Hypoglycemia Dextrose/Water (50% Dextrose In Water 50 Ml Syringe) 50 ml IV ASDIRECTED PRN PRN Reason: Hypoglycemia Dextrose/Water (50% Dextrose In Water 50 Ml Syringe) 50 ml IVPUSH ASDIRECTED PRN PRN Reason: Hypoglycemia Docusate Sodium (Docusate Sodium 100 Mg Cap) 100 mg PO DAILY [facility] Last Admin: 04/11/21 09:05 Dose: Not Given Documented by: Enoxaparin Sodium (Enoxaparin 40 Mg/0.4 Ml Syringe) 40 mg SUBCUT Q12HR [facility] Last Admin: 04/07/21 08:32 Dose: 40 mg Documented by: Furosemide (Furosemide 20 Mg/2 Ml Vial) 20 mg IVPUSH ONETIME ONE Stop: 04/04/21 22:18 Last Admin: 04/04/21 23:02 Dose: 20 mg Documented by: Furosemide (Furosemide 40 Mg/4 Ml Vial) 20 mg IVPUSH NOW ONE Stop: 04/05/21 09:07 Last Admin: 04/05/21 09:39 Dose: 20 mg Documented by: Furosemide (Furosemide 40 Mg/4 Ml Vial) 20 mg IVPUSH ONETIME ONE Stop: 04/05/21 17:01 Last Admin: 04/05/21 16:48 Dose: Not Given Documented by: Furosemide (Furosemide 40 Mg/4 Ml Vial) 40 mg IVPUSH DAILY [facility] Last Admin: 04/07/21 08:27 Dose: 40 mg Documented by: Furosemide (Furosemide 20 Mg/2 Ml Vial) Confirm Administered Dose 20 mg .ROUTE .STK-MED ONE Stop: 04/05/21 21:47 Last Admin: 04/05/21 22:10 Dose: Not Given Documented by: Furosemide (Furosemide 40 Mg/4 Ml Vial) 20 mg IVPUSH NOW ONE Stop: 04/05/21 22:00 Last Admin: 04/05/21 22:09 Dose: 20 mg Documented by: Furosemide (Furosemide 40 Mg/4 Ml Vial) 40 mg IVPUSH BIDDIURETIC [facility] Last Admin: 04/08/21 08:15 Dose: 40 mg Documented by: Furosemide (Furosemide 40 Mg/4 Ml Vial) 40 mg IVPUSH NOW ONE Stop: 04/07/21 22:39 Last Admin: 04/07/21 22:45 Dose: 40 mg Documented by: Furosemide (Furosemide 40 Mg/4 Ml Vial) 40 mg IVPUSH TID [facility] Last Admin: 04/10/21 06:37 Dose: 40 mg Documented by: Furosemide (Furosemide 40 Mg/4 Ml Vial) 60 mg IVPUSH TID [facility] Last Admin: 04/11/21 06:18 Dose: 60 mg Documented by: Furosemide (Furosemide 100 Mg/10 Ml Sdv) 60 mg IVPUSH TID [facility] Last Admin: 04/16/21 05:51 Dose: 60 mg Documented by: Glucagon (Glucagon,Human Recombinant 1 Mg Vial) 1 mg IM ASDIRECTED PRN PRN Reason: Hypoglycemia Glucagon (Glucagon,Human Recombinant 1 Mg Vial) 1 mg IM ASDIRECTED PRN PRN Reason: Hypoglycemia Glucagon (Glucagon,Human Recombinant 1 Mg Vial) 1 mg IM ASDIRECTED PRN PRN Reason: Hypoglycemia Glucagon (Glucagon,Human Recombinant 1 Mg Vial) 1 mg IM ASDIRECTED PRN PRN Reason: Hypoglycemia Ceftriaxone Sodium/Dextrose 2 (gm/ Premix) 50 mls @ 100 mls/hr IV ONETIME ONE Stop: 04/04/21 17:58 Last Admin: 04/04/21 17:45 Dose: 100 mls/hr Documented by: Piperacillin Sod/Tazobactam (Sod 3.375 gm/ Sodium Chloride) 50 mls @ 100 mls/hr IV ONETIME ONE Stop: 04/04/21 21:32 Last Admin: 04/04/21 21:49 Dose: 100 mls/hr Documented by: Piperacillin Sod/Tazobactam (Sod 3.375 gm/ Sodium Chloride) 50 mls @ 100 mls/hr IV Q8H [facility] Last Admin: 04/18/21 06:32 Dose: 100 mls/hr Documented by: Vancomycin HCl 1.5 gm/ Premix 300 mls @ 200 mls/hr IV Q12H [facility] Last Admin: 04/06/21 23:14 Dose: Not Given Documented by: Vancomycin HCl 1.5 gm/ Premix 300 mls @ 200 mls/hr IV Q24H [facility] Last Admin: 04/15/21 10:56 Dose: 200 mls/hr Documented by: Dexmedetomidine/Sodium (Chloride 400 mcg/ Premix) 100 mls @ 6.084 mls/hr IV TITRATE [facility]; Protocol Insulin Aspart (Insulin Aspart 100 Units/Ml 3 Ml Pen) 7 unit SUBCUT ONETIME ONE Stop: 04/11/21 18:30 Last Admin: 04/11/21 18:40 Dose: 7 units Documented by: Insulin Aspart (Insulin Aspart 100 Units/Ml 3 Ml Pen) 5 unit SUBCUT ONETIME ONE Stop: 04/11/21 19:42 Last Admin: 04/11/21 19:50 Dose: 5 units Documented by: Insulin Aspart (Insulin Aspart 100 Units/Ml 10 Ml Vial) 10 unit SUBCUT ONETIME ONE Stop: 04/11/21 22:41 Last Admin: 04/11/21 22:53 Dose: 10 units Documented by: Insulin Aspart (Insulin Aspart 100 Units/Ml 10 Ml Vial) 10 unit SUBCUT ONETIME ONE Stop: 04/12/21 02:11 Last Admin: 04/12/21 02:16 Dose: 10 units Documented by: Insulin Aspart (Insulin Aspart 100 Units/Ml 3 Ml Pen) 5 unit SUBCUT TIDAC [facility] Last Admin: 04/22/21 18:07 Dose: 5 units Documented by: Insulin Glargine (Insulin Glargine,Human Rec. Analog 100 Units/Ml 3 Ml Pen) 20 units SUBCUT DAILY [facility] Last Admin: 04/22/21 09:29 Dose: 20 units Documented by: Iopamidol (Iopamidol 755 Mg/Ml 500 Ml Multipack Bottle) 100 ml IVPUSH ONETIME ONE Stop: 04/04/21 18:43 Last Admin: 04/04/21 18:44 Dose: 100 ml Documented by: Lorazepam (Lorazepam 2 Mg/Ml Sdv) 0.5 mg IVPUSH ONETIME PRN PRN Reason: Bipap Methylprednisolone Sodium Succinate (Methylprednisolone Sodium Succinate 40 Mg/1 Ml Sdv) 60 mg IVPUSH Q8H [facility] Last Admin: 04/15/21 06:48 Dose: 60 mg Documented by: Methylprednisolone Sodium Succinate (Methylprednisolone Sodium Succinate 40 Mg/1 Ml Sdv) 40 mg IVPUSH Q8H [facility] Last Admin: 04/17/21 05:59 Dose: 40 mg Documented by: Methylprednisolone Sodium Succinate (Methylprednisolone Sodium Succinate 40 Mg/1 Ml Sdv) 40 mg IVPUSH Q12H [facility] Last Admin: 04/19/21 06:20 Dose: 40 mg Documented by: Polyethylene Glycol (Polyethylene Glycol 3350 Powder 17 Gm Packet) 17 gm PO DAILY [facility] Last Admin: 04/17/21 09:22 Dose: 17 gm Documented by: Potassium Chloride (Potassium Chloride 20 Meq Tab.Er) 40 meq PO ONETIME ONE Stop: 04/06/21 12:31 Last Admin: 04/06/21 12:58 Dose: 40 meq Documented by: Potassium Chloride (Potassium Chloride 20 Meq Tab.Er) 40 meq PO ONETIME ONE Stop: 04/08/21 07:50 Last Admin: 04/08/21 08:15 Dose: 40 meq Documented by: Potassium Chloride (Potassium Chloride 20 Meq Tab.Er) 40 meq PO ONETIME ONE Stop: 04/08/21 12:01 Last Admin: 04/08/21 12:24 Dose: 40 meq Documented by: Potassium Chloride (Potassium Chloride 20 Meq Tab.Er) 40 meq PO TID [facility] Last Admin: 04/18/21 06:35 Dose: 40 meq Documented by: Potassium Chloride (Potassium Chloride 20 Meq Tab.Er) 40 meq PO ONETIME ONE Stop: 04/22/21 09:15 Last Admin: 04/22/21 09:29 Dose: 40 meq Documented by: Potassium Chloride (Potassium Chloride 20 Meq Tab.Er) 40 meq PO ONETIME ONE Stop: 04/23/21 07:48 Last Admin: 04/23/21 08:38 Dose: Not Given Documented by: Potassium Chloride (Potassium Chloride 20 Meq Tab.Er) 40 meq PO ONETIME ONE Stop: 04/23/21 08:26 Last Admin: 04/23/21 10:07 Dose: 40 meq Documented by: Prednisone (Prednisone 10 Mg Tab) 10 mg PO BEDTIME [facility] Last Admin: 04/07/21 22:28 Dose: 10 mg Documented by: Prednisone (Prednisone 20 Mg Tab) 20 mg PO DAILY [facility] Last Admin: 04/07/21 08:31 Dose: 20 mg Documented by: Tamsulosin HCl (Tamsulosin 0.4 Mg Cap.Er) 0.4 mg PO ONETIME ONE Stop: 04/05/21 19:16 Last Admin: 04/05/21 19:53 Dose: 0.4 mg Documented by: Vancomycin HCl (Pharmacy To Dose - Vancomycin) 1 dose .XX ASDIRECTED [facility] Warfarin Sodium (Warfarin 2 Mg Tab) 4 mg PO ONETIME ONE Stop: 04/05/21 14:01 Last Admin: 04/05/21 14:05 Dose: 4 mg Documented by: Warfarin Sodium (Warfarin 1 Mg Tab) 3 mg PO ONETIME ONE Stop: 04/06/21 14:01 Last Admin: 04/06/21 13:35 Dose: 3 mg Documented by: Warfarin Sodium (Warfarin 2 Mg Tab) 2 mg PO 04/07/21@1400 [facility] Stop: 04/07/21 15:00 Last Admin: 04/07/21 14:21 Dose: 2 mg Documented by: Warfarin Sodium (Warfarin 1 Mg Tab) 1 mg PO 04/08/21@1400 [facility] Stop: 04/08/21 16:00 Last Admin: 04/08/21 13:44 Dose: 1 mg Documented by: Warfarin Sodium (Warfarin 2.5 Mg Tab) 2.5 mg PO DAILY@1400 [facility] Stop: 04/12/21 15:00 Last Admin: 04/12/21 15:04 Dose: 2.5 mg Documented by: Warfarin Sodium (Warfarin 1 Mg Tab) 3 mg PO DAILY@1400 [facility] Stop: 04/13/21 15:00 Last Admin: 04/13/21 13:00 Dose: 3 mg Documented by: Warfarin Sodium (Warfarin 2.5 Mg Tab) 2.5 mg PO DAILY@1400 [facility] Stop: 04/14/21 15:00 Last Admin: 04/14/21 13:59 Dose: 2.5 mg Documented by: Warfarin Sodium (Warfarin 2.5 Mg Tab) 2.5 mg PO DAILY@1400 [facility] Stop: 04/15/21 15:00 Last Admin: 04/15/21 13:49 Dose: 2.5 mg Documented by: Warfarin Sodium (Warfarin 2.5 Mg Tab) 2.5 mg PO 04/17/21@[address] [place] [address] Stop: 04/17/21 16:00 Last Admin: 04/17/21 14:15 Dose: 2.5 mg Documented by: Warfarin Sodium (Warfarin 2 Mg Tab) 4 mg PO ONETIME ONE Stop: 04/18/21 14:31 Last Admin: 04/18/21 15:29 Dose: 4 mg Documented by: Warfarin Sodium (Warfarin 2 Mg Tab) 4 mg PO ONETIME ONE Stop: 04/19/21 14:16 Last Admin: 04/19/21 14:36 Dose: 4 mg Documented by: Warfarin Sodium (Warfarin 2.5 Mg Tab) 2.5 mg PO DAILY@1400 [facility] Stop: 04/20/21 15:00 Last Admin: 04/20/21 14:18 Dose: 2.5 mg Documented by: Warfarin Sodium (Warfarin 2.5 Mg Tab) 2.5 mg PO ONETIME ONE Stop: 04/21/21 14:16 Last Admin: 04/21/21 14:34 Dose: 2.5 mg Documented by: Warfarin Sodium (Warfarin 1 Mg Tab) 1 mg PO 04/22/21@1400 [facility] Stop: 04/22/21 16:00 Last Admin: 04/22/21 13:27 Dose: 1 mg Documented by: Warfarin Sodium (Warfarin 1 Mg Tab) 1 mg PO 04/23/21@[address] [place] [address] Stop: 04/23/21 14:01 Last Admin: 04/23/21 13:42 Dose: 1 mg Documented by:
[2021-04-25] MEDS: Budesonide 0.5 MG/2 ML Neb Susp INH SCH (13:56)
[2021-04-25 14:36] LABS: CHLORIDE,CL 98 mmol/L (98-107); POTASSIUM,K 4.4 mmol/L (3.5-5.1); SODIUM,NA 138 mmol/L (136-148)
== END 2021-04-25 15:30 | DRG 196 ==
LOC: MW.ED 15:23 → MW.MS 21:04 → OBSVTOIN 04-07 12:58 → MW.MS 04-07 15:00 → MW.ICU 04-07 21:59 → MW.MS 04-17 11:59
PROVIDERS: ADMIT Student in an Organized Health Care Education/Training Program; ATTEND Student in an Organized Health Care Education/Training Program
PROC: 5A0955A Assistance with Respiratory Ventilation, Greater than 96 Consecutive Hours, High Flow/Velocity Cannula (ICD-10-PCS; principal; 2021-04-13)
DX: J84.10 Pulmonary fibrosis, unspecified (principal); J96.21 Acute and chronic respiratory failure with hypoxia; J18.9 Pneumonia, unspecified organism; H35.30 Unspecified macular degeneration; J96.22 Acute and chronic respiratory failure with hypercapnia; L03.114 Cellulitis of left upper limb; J84.89 Other specified interstitial pulmonary diseases; E88.09 Other disorders of plasma-protein metabolism, not elsewhere classified; J43.9 Emphysema, unspecified; R26.2 Difficulty in walking, not elsewhere classified; E03.9 Hypothyroidism, unspecified; Z20.822 Contact with and (suspected) exposure to COVID-19; R73.9 Hyperglycemia, unspecified; Z51.5 Encounter for palliative care; T38.0X5A Adverse effect of glucocorticoids and synthetic analogues, initial encounter; L89.321 Pressure ulcer of left buttock, stage 1; L89.311 Pressure ulcer of right buttock, stage 1; I48.91 Unspecified atrial fibrillation; K59.00 Constipation, unspecified; H91.90 Unspecified hearing loss, unspecified ear; J96.11 Chronic respiratory failure with hypoxia; E78.00 Pure hypercholesterolemia, unspecified; M19.90 Unspecified osteoarthritis, unspecified site; E66.9 Obesity, unspecified; Z86.73 Personal history of transient ischemic attack (TIA), and cerebral infarction without residual deficits; Z86.718 Personal history of other venous thrombosis and embolism; Z79.01 Long term (current) use of anticoagulants; Z79.52 Long term (current) use of systemic steroids; Z79.899 Other long term (current) drug therapy; Z79.890 Hormone replacement therapy; Z79.82 Long term (current) use of aspirin; Z98.49 Cataract extraction status, unspecified eye; Z90.49 Acquired absence of other specified parts of digestive tract; Z87.01 Personal history of pneumonia (recurrent); Z99.81 Dependence on supplemental oxygen; Z79.51 Long term (current) use of inhaled steroids; Z68.29 Body mass index [BMI] 29.0-29.9, adult
CPT/HCPCS: 0240U; 36415; 36600; 51798; 71045; 71045-26; 73202-26-LT; 73202-LT; 80048; 80053; 80202; 81003; 82803; 82947; 83036; 83605; 83735; 83880; 84100; 84145; 84439; 84443; 84484; 85025; 85610; 87040; 93005; 93010; 93971-26-LT; 93971-LT; 94640; 94660; 96365; 96366; 96367; 96372; 96375; 96376; 97110-GP; 97163-GP; 97530-GP; 99284; 99285-25; A9270-GY; G0378; J0696; J1650; J1815-GY; J1940; J2543; J2920; J3370; J7620-GY; Q9967; U0002